=== PATIENT | female | born 1935 | race Caucasian/White ===

== ENCOUNTER 2017-09-21 14:46 | Emergency (ER) | payer OTHER ==
[2017-09-21] MEDS ORDERED: ACETAMINOPHEN 500 MG TAB ONE (15:06)
--- NOTE | 2017-09-21 16:26 | ER ---
Nurse's Notes [facility] Name: Parvin Manzo Age: 82 yrs Sex: Female : 1935 Arrival Date: 09/21/2017 Time: 14:50 Bed 30 Private MD: Laureano Echeverria V Diagnosis: Acute bronchitis;Otitis media, unspecified, bilateral Presentation: 09/21 14:54 Presenting complaint: Patient states: Sore throat, headache, nonproductive cough with hb yellow sputum, body aches, nausea, and fever x 3 days. Transition of care: patient was not received from another setting of care. Onset of symptoms is unknown. Initial Sepsis Screen: Does the patient meet any 2 criteria?. Care prior to arrival: Medication(s) given: Tylenol, at 0930 today. 14:54 Method Of Arrival: Ambulatory hb 14:54 Acuity: ORI 3 hb 16:44 Initial Sepsis Screen: Does the patient have a suspected source of infection? No. rk2 Patient's initial sepsis screen is negative. Triage Assessment: 15:21 General: Appears in no apparent distress. Behavior is calm, cooperative. Pain: rk2 Complains of pain in headache. EENT: Throat is reddened. Neuro: Level of Consciousness is alert, obeys commands, Oriented to person, place, time, situation. Respiratory: Reports cough that is productive, Airway is patent Respiratory effort is even, unlabored, Respiratory pattern is regular, symmetrical, Breath sounds are clear bilaterally. GI: No signs and/or symptoms were reported involving the gastrointestinal system. Derm: Skin is pink, warm \T\ dry. Historical: - Allergies: 15:01 PENICILLINS (Hives); hb - Home Meds: 15:01 Ranitidine Oral [Active]; Thyrolar-1 12.5-50 mcg oral tab [Active]; hb - PMHx: 15:01 Hypothyroidism; GERD; hb - PSHx: 15:01 Cholecystectomy; Back; Neck; hb - Immunization history:: Adult Immunizations up to date. - Social history:: Smoking status: Patient/guardian denies using tobacco. Screenin:20 Abuse screen: Denies threats or abuse. Nutritional screening: No deficits noted. rk2 Tuberculosis screening: No symptoms or risk factors identified. Fall Risk None identified. Vital Signs: 14:58 BP 137 / 90; Pulse 92; Resp 20; Temp 101.6(TE); Pulse Ox 99% on R/A; Weight 68.04 kg; hb Height 5 ft. 2 in. (157.48 cm); Pain 9/10; 16:29 BP 110 / 72; Pulse 77; Resp 16; Pulse Ox 96% ; Pain 3/10; tt1 14:58 Body Mass Index 27.44 (68.04 kg, 157.48 cm) hb ED Course: 14:50 Patient arrived in ED. mr 14:50 Laureano Echeverria MD is Private Physician. mr 14:58 Triage completed. hb 14:59 Arm band placed on left wrist. hb 15:12 Miladis Felder, RN is Primary Nurse. rk2 15:13 Marilyn Monte FNP-C [facility]. snw 15:13 Pedrito Curry MD is Attending Physician. snw 15:20 Patient has correct armband on for positive identification. Bed in low position. rk2 15:59 Patient moved to radiology via wheelchair. jr1 15:59 X-ray completed. Patient tolerated procedure well. jr1 15:59 Chest Pa And Lat (2 Views) XRAY In Process Unspecified. EDMS 16:25 Laureano Echeverria MD is Referral Physician. snw 16:43 No provider procedures requiring assistance completed. Patient did not have IV access rk2 during this emergency room visit. Administered Medications: 15:07 Drug: Tylenol 1000 mg Route: PO; hb 16:32 Drug: LevaQUIN 500 mg Route: PO; rk2 16:44 Follow up: Given \T\ DC rk2 Intake: Outcome: 16:26 Discharge ordered by . snw 16:43 Discharged to home ambulatory. rk2 16:43 Condition: good 16:43 Discharge instructions given to patient, Prescriptions given X 2. 16:55 Patient left the ED. rk2 Signatures: Dispatcher [employer] EDMS Marilyn Monte FNP-C SPRAY PAINTER HELPER-CsnPat Wilson mr Felix, Andressa jr1 Thymrhina, Shivani tt1 Daphne De Leon, RN RN Miladis Felder, MADELEINE RN rk2
--- NOTE | 2017-09-21 16:27 | EDPHYS ---
Physician Documentation [facility] Name: Parvin Manzo Age: 82 yrs Sex: Female : 1935 Arrival Date: 09/21/2017 Time: 14:50 Bed 30 Private MD: Laureano Echeverria V ED Physician CurryPedrito ramos HPI: 09/21 15:38 This 82 yrs old Female presents to ER via Ambulatory with complaints of Flu snw Symptoms. 15:38 Onset: The symptoms/episode began/occurred 4 day(s) ago. Associated signs and symptoms: snw Pertinent positives: cough, fever, sore throat. Modifying factors: The patient symptoms are alleviated by nothing. The patient has not experienced similar symptoms in the past. The patient has not recently seen a physician, the patient's primary care provider is Dr. Dr. Echeverria. Pt states s/s have continued to worsen despite home symptom tx. Historical: - Allergies: 15:01 PENICILLINS (Hives); hb - Home Meds: 15:01 Ranitidine Oral [Active]; Thyrolar-1 12.5-50 mcg oral tab [Active]; hb - PMHx: 15:01 Hypothyroidism; GERD; hb - PSHx: 15:01 Cholecystectomy; Back; Neck; hb - Immunization history:: Adult Immunizations up to date. - Social history:: Smoking status: Patient/guardian denies using tobacco. ROS: 15:37 Constitutional: Negative for chills and weight loss, + fever Eyes: Negative for injury, snw pain, redness, and discharge, Neck: Negative for injury, pain, and swelling, Cardiovascular: Negative for chest pain, palpitations, and edema, Abdomen/GI: Negative for abdominal pain, nausea, vomiting, diarrhea, and constipation, Back: Negative for injury and pain, : Negative for injury, bleeding, discharge, and swelling, MS/Extremity: Negative for injury and deformity, Skin: Negative for injury, rash, and discoloration, Neuro: Negative for headache, weakness, numbness, tingling, and seizure. 15:37 ENT: Positive for sore throat. 15:37 Respiratory: Positive for cough. Exam: 15:36 Constitutional: This is a well developed, well nourished patient who is awake, alert, snw and in no acute distress. Head/Face: Normocephalic, atraumatic. Eyes: Pupils equal round and reactive to light, extra-ocular motions intact. Lids and lashes normal. Conjunctiva and sclera are non-icteric and not injected. Cornea within normal limits. Periorbital areas with no swelling, redness, or edema. Neck: Trachea midline, no thyromegaly or masses palpated, and no cervical lymphadenopathy. Supple, full range of motion without nuchal rigidity, or vertebral point tenderness. No Meningismus. Chest/axilla: Normal chest wall appearance and motion. Nontender with no deformity. No lesions are appreciated. Cardiovascular: Regular rate and rhythm with a normal S1 and S2. No gallops, murmurs, or rubs. Normal PMI, no JVD. No pulse deficits. Respiratory: Lungs have equal breath sounds bilaterally, clear to auscultation and percussion. No rales, rhonchi or wheezes noted. No increased work of breathing, no retractions or nasal flaring. Mild cough Abdomen/GI: Soft, non-tender, with normal bowel sounds. No distension or tympany. No guarding or rebound. No evidence of tenderness throughout. Back: No spinal tenderness. No costovertebral tenderness. Full range of motion. Skin: Warm, dry with normal turgor. Normal color with no rashes, no lesions, and no evidence of cellulitis. MS/ Extremity: Pulses equal, no cyanosis. Neurovascular intact. Full, normal range of motion. Neuro: Awake and alert, GCS 15, oriented to person, place, time, and situation. Cranial nerves II-XII grossly intact. Motor strength 5/5 in all extremities. Sensory grossly intact. Cerebellar exam normal. Normal gait. 15:36 ENT: External ear(s): are unremarkable, Ear canal(s): are normal, TM's: dullness, bilaterally, fluid levels, bilaterally, Nose: is normal, Mouth: is normal, Posterior pharynx: erythema, that is moderate, Voice: is normal. Vital Signs: 14:58 BP 137 / 90; Pulse 92; Resp 20; Temp 101.6(TE); Pulse Ox 99% on R/A; Weight 68.04 kg; hb Height 5 ft. 2 in. (157.48 cm); Pain 9/10; 16:29 BP 110 / 72; Pulse 77; Resp 16; Pulse Ox 96% ; Pain 3/10; tt1 14:58 Body Mass Index 27.44 (68.04 kg, 157.48 cm) hb MDM: 15:16 Patient medically screened. snw 16:29 Data reviewed: vital signs, nurses notes. Data interpreted: Pulse oximetry: on room air snw is 99 %. Interpretation: normal. Counseling: I had a detailed discussion with the patient and/or guardian regarding: the historical points, exam findings, and any diagnostic results supporting the discharge/admit diagnosis, the presence of at least one elevated blood pressure reading (>120/80) during this emergency department visit, lab results, radiology results, the need for outpatient follow up, to return to the emergency department if symptoms worsen or persist or if there are any questions or concerns that arise at home. Special discussion: Based on the history and exam findings, there is no indication for further emergent testing or inpatient evaluation. I discussed with the patient/guardian the need to see the primary care provider for further evaluation of the symptoms. 09/21 15:02 Order name: Strep; Complete Time: 15:34 hb 09/21 15:02 Order name: Flu; Complete Time: 15:34 hb 09/21 15:34 Order name: Chest Pa And Lat (2 Views) XRAY; Complete Time: 16:45 snw 09/21 15:34 Order name: Throat Culture EDMS Administered Medications: 15:07 Drug: Tylenol 1000 mg Route: PO; hb 16:32 Drug: LevaQUIN 500 mg Route: PO; rk2 16:44 Follow up: Given \T\ DC rk2 Disposition: 09/22 12:40 Co-signature as Attending Physician, Pedrito Curry MD. Disposition: 09/21/17 16:26 Discharged to Home. Impression: Acute bronchitis, Otitis media, unspecified, bilateral. - Condition is Stable. - Discharge Instructions: Acute Bronchitis, Otitis Media, Adult, Fever, Adult, Rehydration, Elderly. - Prescriptions for Levaquin 500 mg Oral Tablet - take 1 tablet by ORAL route once daily for 7 days; 7 tablet. Tessalon Perles 100 mg Oral Capsule - take 1 capsule by ORAL route every 8 hours As needed; 15 capsule. - Medication Reconciliation Form, Thank You Letter, Antibiotic Education, Prescription Opioid Use form. - Follow up: Laureano Echeverria MD; When: 2 - 3 days; Reason: Recheck today's complaints, Continuance of care, Re-evaluation by your physician. Follow up: Emergency Department; When: As needed; Reason: Worsening of condition. Signatures: Dispatcher [employer] EDMarilyn Castillo, BANKING ASSISTANT-C BANKING ASSISTANT-Csnw Daphne De Leon, RN Pedrito Alarcon MD MD gs Kidder, Rhonda, RN RN rk2
[2017-09-21] MEDS ORDERED: levoFLOXacin 500 MG TAB ONE (16:30)
--- NOTE | 2017-09-21 16:38 | RAD REPORT ---
EXAM DESCRIPTION: RAD - Chest Pa And Lat (2 Views) - 09/21/2017 4:01 pm CLINICAL HISTORY: Cough, body aches COMPARISON: January 2009 TECHNIQUE: PA and lateral views of the chest were obtained. 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 Lung markings are not substantially different from the comparison. There may be some minimal progression of the fibrosis. No mass, consolidation or failure. Trachea is midline. Heart size is normal and central vasculature is within normal limits. No pleural effusio n or pneumothorax seen. No acute bony finding noted. No aortic abnormality. Exam is correctly labe led. IMPRESSION: No peripheral mass, consolidation or failure. Interstitial markings are not substantially different. There may be some minimal progression in fibro sis since 2008.
== END 2017-09-21 16:55 | disposition home or self-care (01) ==
LOC: ER 14:46
DX: J20.9 Acute bronchitis, unspecified (principal); H66.93 Otitis media, unspecified, bilateral; E03.9 Hypothyroidism, unspecified; Z88.0 Allergy status to penicillin
CPT/HCPCS: 71046; 87070; 87081; 87804; 99283

== ENCOUNTER 2019-01-13 01:36 | Inpatient (IN) | payer OTHER ==
[2019-01-13 02:25] LABS: Absolute Lymphocytes (CBC) 1.6 K/uL (0.7-4.9); Basophils % 0.3 % (0-1.3); Hematocrit 39.5 % (36.0-45.0); Lymphocytes % 11.7 % (15.3-44.8); MPV 9.4 fL (7.6-11.3); RBC Red Blood Cell Count 4.34 M/uL (3.86-4.86)
[2019-01-13 02:27] LABS: Protime INR 0.92
[2019-01-13] MEDS ORDERED: MORPHINE 4 MG/ML SYR ONE ×2 (02:28→04:33)
[2019-01-13] MEDS ORDERED: ONDANSETRON 4 MG/2 ML VIAL ONE ×2 (02:28→03:29)
[2019-01-13 02:49] LABS: Albumin 3.7 g/dL (3.4-5.0); Bilirubin Total 0.3 mg/dL (0.2-1.0); Potassium 3.6 mmol/L (3.5-5.1); Protein, Total 7.5 g/dL (6.4-8.2)
--- NOTE | 2019-01-13 03:22 | ER ---
Nurse's Notes [facility] Name: Parvin Manzo Age: 83 yrs Sex: Female : 1935 Arrival Date: 01/13/2019 Time: 01:37 Bed 19 Private MD: Laureano Echeverria V Diagnosis: Fracture of unspecified part of neck of right femur Presentation: 01/13 01:42 Presenting complaint: EMS states: Pt states that she fell down in the kitchen last tr5 night around 2100 and is having R sided pain from her R hip to her R pain. Transition of care: patient was not received from another setting of care. Onset of symptoms was January 13, 2019. Risk Assessment: Do you want to hurt yourself or someone else? Patient reports no desire to harm self or others. Initial Sepsis Screen: Does the patient meet any 2 criteria? No. Patient's initial sepsis screen is negative. Care prior to arrival: None. 01:42 Method Of Arrival: EMS: [facility] tr5 01:42 Acuity: ORI 3 tr5 01:50 Mechanism of Injury: Fall from standing position. Trauma event details: Injury occurred tr5 in the [facility], Injury occurred: at home. Injury occurred: January 12, 2019 Injury occurred at: 21:00. 01:56 Initial Sepsis Screen: Does the patient meet any 2 criteria? Does the patient have a tr5 suspected source of infection? No. Patient's initial sepsis screen is negative. Historical: - Allergies: 01:46 PENICILLINS (Hives); tr5 - Home Meds: 01:46 Ranitidine Oral [Active]; levothyroxine oral [Active]; tr5 - PMHx: 01:46 GERD; Hypothyroidism; tr5 - PSHx: 01:46 bone transplant; tr5 - Immunization history:: Adult Immunizations up to date. - Social history:: Smoking status: Patient/guardian denies using tobacco, never smoked. - Immunization history: Last tetanus immunization: - up to date. - Ebola Screening: : No symptoms or risks identified at this time. Screenin:47 Abuse screen: Denies threats or abuse. Nutritional screening: No deficits noted. tr5 Tuberculosis screening: No symptoms or risk factors identified. Fall Risk Fall in past 12 months (25 points). No secondary diagnosis (0 pts). No IV (0 pts). Ambulatory Aid- None/Bed Rest/Nurse Assist (0 pts). Gait- Normal/Bed Rest/Wheelchair (0 pts) Mental Status- Oriented to own ability (0 pts). Total Forbes Fall Scale indicates Low Risk Score (25-44 pts). Fall prevention measures have been instituted. Placed close to Nursing Station. Primary Survey: 01:50 NO uncontrolled hemorrhage observed. A: The patient is alert. A: Airway: patent, No tr5 supplemental oxygen in use on arrival. Oral cavity: clear, Trachea midline. Breathing/Chest: Respiratory pattern: regular, Respiratory effort: spontaneous, Breath sounds: clear, bilaterally. Chest inspection: symmetrical rise and fall of the chest. Circulation: Cardiac rhythm: sinus rhythm Heart tones present. Pulses: palpable right radial artery, right posterior tibial artery, left radial artery and left posterior tibial artery. Skin color: pink, Skin temperature: warm. Disability Alert. Exposure/Environment: All clothing and personal items were removed. Forensic evidence collection is not deemed to be indicated at this time. Items placed in patient belonging bag. There is no evidence of uncontrolled external bleeding. 02:50 Reassessment Airway Airway Patent Oxygen No O2 Oral cavity Clear Trachea Midline tr5 Breathing/Chest Respiratory pattern Regular Respiratory effort Spontaneous Breath sounds Clear Chest inspection Symmetrical Circulation Heart rhythm Sinus rhythm Heart tones Present Pulses Palpable Color [place] Temperature Warm Disability Alert. Secondary Survey: 01:50 HEENT: No deficits noted. Gastrointestinal: Abdomen is soft. : No signs and/or tr5 symptoms were reported regarding the genitourinary system. Musculoskeletal: Capillary refill < 3 seconds, Range of motion: intact in all extremities. Assessment: 01:47 General: Appears uncomfortable, Behavior is calm, cooperative, appropriate for age. tr5 Pain: Complains of pain in pelvis and right leg Pain does not radiate. Quality of pain is described as aching, Pain began Gradually since 2100. Neuro: Level of Consciousness is awake, alert, Oriented to person, place, time, Cartridge Feeder are equal bilaterally Moves all extremities. Cardiovascular: Heart tones present Bruits absent. Respiratory: Airway is patent Respiratory effort is even, unlabored, Respiratory pattern is regular, symmetrical. GI: : No signs and/or symptoms were reported regarding the genitourinary system. EENT: No signs and/or symptoms were reported regarding the EENT system. Derm: Skin is intact, Skin is dry, Skin is normal. Musculoskeletal: Capillary refill < 3 seconds, Range of motion: intact in all extremities. Vital Signs: 01:42 BP 141 / 50; Pulse 80; Resp 16; Temp 98.9(O); Pulse Ox 96% on R/A; Weight 68.04 kg; tr5 Height 5 ft. 2 in. (157.48 cm); 03:00 BP 126 / 65; Pulse 69; Resp 19; Pulse Ox 99% on R/A; tr5 01:42 Body Mass Index 27.44 (68.04 kg, 157.48 cm) tr5 Dixie Coma Score: 01:50 Eye Response: spontaneous(4). Verbal Response: oriented(5). Motor Response: obeys tr5 commands(6). Total: 15. Trauma Score (Adult): 01:50 Eye Response: spontaneous(1); Verbal Response: oriented(1); Motor Response: obeys tr5 commands(2); Systolic BP: > 89 mm Hg(4); Respiratory Rate: 10 to 29 per min(4); Dixie Score: 15; Trauma Score: 12 ED Course: 01:37 Patient arrived in ED. am2 01:38 Laureano Echeverria MD is Private Physician. am2 01:41 Franklin Starkey, MADELEINE is Primary Nurse. tr5 01:43 [facility] Bagley [facility]. pm1 01:43 Rj Finnegan MD is Attending Physician. pm1 01:44 Triage completed. tr5 01:47 Bed in low position. Call light in reach. Side rails up X 1. tr5 01:50 Patient maintains SpO2 saturation greater than 95% on room air. tr5 02:20 Initial lab(s) drawn, by me, sent to lab. Inserted saline lock: 20 gauge in right tr5 antecubital area, using aseptic technique. Blood collected. 02:50 CT completed. Patient tolerated procedure well. Patient moved to CT via stretcher. Patient moved back from CT. 02:58 CT Pelvis wo Cont In Process Unspecified. EDMS 03:19 Laureano Echeverria MD is Hospitalizing Provider. pm1 03:25 Awaiting for x-ray. tr5 04:06 Chest Single View XRAY In Process Unspecified. EDMS 04:54 Arm band placed on. tr5 04:54 No provider procedures requiring assistance completed. Patient admitted, IV remains in tr5 place. Administered Medications: 02:34 Drug: morphine 4 mg Route: IVP; Site: right antecubital; tr5 03:00 Follow up: Response: Nausea is decreased tr5 02:34 Drug: Zofran 4 mg Route: IVP; Site: right antecubital; tr5 03:00 Follow up: Response: Nausea is decreased tr5 03:32 Drug: Zofran 4 mg Route: IVP; Site: right antecubital; tr5 03:57 Follow up: Response: Nausea is decreased tr5 04:45 Drug: morphine 4 mg {Note: RAAS:0.} Route: IVP; Site: right antecubital; tr5 Outcome: 01:57 Patient's length of stay was not longer than 2 hours. tr5 03:21 Decision to Hospitalize by Provider. pm1 04:54 Admitted to Med/surg accompanied by nurse, via stretcher, with chart, Report called to tr5 Krista SALVADOR 04:54 Condition: stable 04:54 Instructed on the need for admit. 04:57 Patient left the ED. tr5 Signatures: Dispatcher [employer] Paulo Torre Patrick, NP FABRIC WORKER pm1 Staci Casey am2 Franklin Starkey, RN RN tr5
--- NOTE | 2019-01-13 03:23 | EDPHYS ---
Physician Documentation [facility] Name: Parvin Manzo Age: 83 yrs Sex: Female : 1935 Arrival Date: 01/13/2019 Time: 01:37 Bed 19 Private MD: Laureano Echeverria V ED Physician Rj Finnegan HPI: 01/13 02:01 This 83 yrs old Female presents to ER via EMS with complaints of Fall Injury. pm1 02:01 Details of fall: The patient fell from an upright position, while walking. Onset: The pm1 symptoms/episode began/occurred yesterday, at 21:00. Associated injuries: The patient sustained Right hip. Severity of symptoms: in the emergency department the symptoms are actually worse. The patient has not experienced similar symptoms in the past. The patient has not recently seen a physician, the patient's primary care provider is Dr. Echeverria. Patient waling from kitchen to the living room and fell when she slipped on the kitchen floor. Landed on her right hip area. No headache, head injury, neck pain. Historical: - Allergies: 01:46 PENICILLINS (Hives); tr5 - Home Meds: 01:46 Ranitidine Oral [Active]; levothyroxine oral [Active]; tr5 - PMHx: 01:46 GERD; Hypothyroidism; tr5 - PSHx: 01:46 bone transplant; tr5 - Immunization history:: Adult Immunizations up to date. - Social history:: Smoking status: Patient/guardian denies using tobacco, never smoked. - Immunization history: Last tetanus immunization: - up to date. - Ebola Screening: : No symptoms or risks identified at this time. ROS: 02:01 Constitutional: Negative for fever, chills, and weight loss, Eyes: Negative for injury, pm1 pain, redness, and discharge, ENT: Negative for injury, pain, and discharge, Neck: Negative for injury, pain, and swelling, Cardiovascular: Negative for chest pain, palpitations, and edema, Respiratory: Negative for shortness of breath, cough, wheezing, and pleuritic chest pain, Abdomen/GI: Negative for abdominal pain, nausea, vomiting, diarrhea, and constipation, Back: Negative for injury and pain, : Negative for injury, bleeding, discharge, and swelling. 02:01 Skin: Negative for injury, rash, and discoloration, Neuro: Negative for headache, weakness, numbness, tingling, and seizure. 02:01 MS/extremity: Positive for pain, of the right hip. Exam: 02:01 Constitutional: This is a well developed, well nourished patient who is awake, alert, pm1 and in no acute distress. Head/Face: Normocephalic, atraumatic. Neck: Trachea midline, no thyromegaly or masses palpated, and no cervical lymphadenopathy. Supple, full range of motion without nuchal rigidity, or vertebral point tenderness. No Meningismus. Chest/axilla: Normal chest wall appearance and motion. Nontender with no deformity. No lesions are appreciated. Cardiovascular: Regular rate and rhythm with a normal S1 and S2. No gallops, murmurs, or rubs. Normal PMI, no JVD. No pulse deficits. Respiratory: Lungs have equal breath sounds bilaterally, clear to auscultation and percussion. No rales, rhonchi or wheezes noted. No increased work of breathing, no retractions or nasal flaring. Abdomen/GI: Soft, non-tender, with normal bowel sounds. No distension or tympany. No guarding or rebound. No evidence of tenderness throughout. Back: No spinal tenderness. No costovertebral tenderness. Full range of motion. Skin: Warm, dry with normal turgor. Normal color with no rashes, no lesions, and no evidence of cellulitis. 02:01 Musculoskeletal/extremity: Extremities: grossly normal except: noted in the right hip: tenderness, There is no evidence of shortening or rotation or right leg, Circulation is intact in all extremities. Pulses: are normal with no appreciated deficits, noted to be 2+ in the right dorsalis pedis artery, Sensation intact. 02:01 Neuro: Orientation: is normal, Motor: is normal, moves all fours, Sensation: is normal, no obvious gross deficits. Vital Signs: 01:42 BP 141 / 50; Pulse 80; Resp 16; Temp 98.9(O); Pulse Ox 96% on R/A; Weight 68.04 kg; tr5 Height 5 ft. 2 in. (157.48 cm); 03:00 BP 126 / 65; Pulse 69; Resp 19; Pulse Ox 99% on R/A; tr5 01:42 Body Mass Index 27.44 (68.04 kg, 157.48 cm) tr5 Blandon Coma Score: 01:50 Eye Response: spontaneous(4). Verbal Response: oriented(5). Motor Response: obeys tr5 commands(6). Total: 15. Trauma Score (Adult): 01:50 Eye Response: spontaneous(1); Verbal Response: oriented(1); Motor Response: obeys tr5 commands(2); Systolic BP: > 89 mm Hg(4); Respiratory Rate: 10 to 29 per min(4); Robinson Score: 15; Trauma Score: 12 MDM: 01:48 Patient medically screened. [facility] 02:06 Data reviewed: vital signs. Data interpreted: Pulse oximetry: on room air is 96 %. pm1 Interpretation: normal. 03:19 Counseling: I had a detailed discussion with the patient and/or guardian regarding: the pm1 historical points, exam findings, and any diagnostic results supporting the discharge/admit diagnosis, lab results, radiology results, the need for further work-up and treatment in the hospital. 01/13 02:01 Order name: CBC with Diff; Complete Time: 02:41 pm1 01/13 02:01 Order name: CMP; Complete Time: 02:54 pm1 01/13 02:01 Order name: PT-INR; Complete Time: 02:41 pm1 01/13 02:01 Order name: CT Pelvis wo Cont pm01/13 03:19 Order name: Chest Single View XRAY pm1 01/13 02:01 Order name: IV Saline Lock; Complete Time: 02:26 pm1 01/13 03:19 Order name: EKG; Complete Time: 03:19 pm1 01/13 03:19 Order name: EKG - Nurse/Tech; Complete Time: 03:43 pm1 01/13 03:19 Order name: NPO; Complete Time: 03:43 pm1 01/13 03:37 Order name: NPO; Complete Time: 03:43 EDMS Administered Medications: 02:34 Drug: morphine 4 mg Route: IVP; Site: right antecubital; tr5 03:00 Follow up: Response: Nausea is decreased tr5 02:34 Drug: Zofran 4 mg Route: IVP; Site: right antecubital; tr5 03:00 Follow up: Response: Nausea is decreased tr5 03:32 Drug: Zofran 4 mg Route: IVP; Site: right antecubital; tr5 03:57 Follow up: Response: Nausea is decreased tr5 04:45 Drug: morphine 4 mg {Note: RAAS:0.} Route: IVP; Site: right antecubital; tr5 Disposition: 09:32 Co-signature as Attending Physician, Rj Finnegan MD I agree with the assessment and kelly plan of care. Disposition: 01/13/19 03:21 Hospitalization ordered by Laureano Echeverria for Inpatient Admission. Preliminary diagnosis is Fracture of unspecified part of neck of right femur. - Bed requested for Telemetry/MedSurg (Inpatient). - Status is Inpatient Admission. tr5 - Condition is Stable. - Problem is new. - Symptoms have improved. UTI on Admission? No Signatures: Dispatcher [employer] EDMS Toya Hernandez RN RN Rj Wells MD MD cha Marinas, Patrick, MILLER HEAD WET PROCESS MILLER HEAD WET PROCESS pm1 Franklin Starkey RN RN tr5 Corrections: (The following items were deleted from the chart) 03:54 03:21 Hospitalization Ordered by Laureano Echeverria MD for Inpatient Admission. Preliminary diagnosis is Fracture of unspecified part of neck of right femur. Bed requested for Telemetry/MedSurg (Inpatient). Status is Inpatient Admission. Condition is Stable. Problem is new. Symptoms have improved. UTI on Admission? No. pm1 04:57 03:54 01/13/2019 03:21 Hospitalization Ordered by Laureano Echeverria MD for Inpatient tr5 Admission. Preliminary diagnosis is Fracture of unspecified part of neck of right femur. Bed requested for Telemetry/MedSurg (Inpatient). Status is Inpatient Admission. Condition is Stable. Problem is new. Symptoms have improved. UTI on Admission? No. mw
[2019-01-13 05:05] VITALS: BMI 28.3
[2019-01-13] MEDS: NA CHLORIDE 0.9% 1,000 ML IV SCH ×3 (06:02→22:00)
--- NOTE | 2019-01-13 07:43 | EKG ---
Test Date: 2019-01-13 Test Time: 03:38:10 Patient Experience Coordinator: TR MEASUREMENT RESULTS: Intervals: Rate: 68 IN: 168 QRSD: 76 QT: 402 QTc: 427 [place]: P: 88 IN: 168 QRS: 122 T: 87 INTERPRETIVE STATEMENTS: Normal sinus rhythm Right axis deviation Low voltage QRS Septal infarct, age undetermined Abnormal ECG Compared to ECG 01/31/2009 18:42:34 Right-axis deviation now present Low QRS voltage now present Myocardial infarct finding still present Electronically Signed On 01-13-19 07:42:17 CDT by Vladislav Arambula
[2019-01-13 07:59] LABS: Urine Appearance CLEAR; Urine Bilirubin NEGATIVE (NEG); Urine Blood 1+ (NEG); Urine Color YELLOW; Urine Glucose NEGATIVE (NEG); Urine Protein NEGATIVE (NEG); Urine Specific Gravity 1.015 (1.005-1.030); Urine Urobilinogen 0.2 mg/dL (0.2-1.0); Urine pH 5.5 (5.0-7.0)
[2019-01-13 08:00] LABS: Urine Microscopic Reflex ORDER UMIC
[2019-01-13 08:18] LABS: Urine Bacteria 20-50 /HPF (<20); Urine Culture Reflex Order REFLEXED; Urine RBC <5 /HPF (NONE SEEN)
--- NOTE | 2019-01-13 08:20 | RAD REPORT ---
EXAM DESCRIPTION: RAD - Chest Single View - 01/13/2019 4:06 am CLINICAL HISTORY: preoperative Chest pain. COMPARISON: Chest Pa And Lat (2 Views) dated 09/21/2017; CHEST SINGLE VIEW dated 01/28/2009; CHEST SING LE VIEW dated 01/23/2008 FINDINGS: Portable technique limits examination quality. Mild interstitial pulmonary edema suspected. The heart is upper limit normal size. No displaced fract ures. IMPRESSION: No acute intrathoracic process suspected.
--- NOTE | 2019-01-13 10:09 | RAD REPORT ---
EXAM DESCRIPTION: CT pelvis without IV contrast CLINICAL HISTORY: 83-year-old female with right hip pain status post fall TECHNIQUE: Axial CT imaging of the pelvis was performed without intravenous contrast. Sagittal and coronal reconstructed images were then performed. The CT study is performed according to ALARA (as l ow as reasonably achievable) or ALARA/IMAGE GENTLY, with automatic adjustment of mA and/or kV accordi ng to patient size. Performed on: 01/13/2019 at 2:46 AM COMPARISON: None FINDINGS: Bones: There is a nondisplaced fracture of the proximal right femur at the junction of the head and neck. The hip joints are intact. The sacroiliac joints and pubic symphysis are preserved. N o pathologic lytic bone lesions are identified. There is a small 6 mm focal area of sclerosis within the anterior column of the left acetabulum likely reflecting a bone island. Bone mineralization is no rmal. There are minimal degenerative changes of the pelvis. There are degenerative changes of the vis ualized lower lumbar spine. Soft tissues: No focal soft tissue swelling is identified. There is no evidence of a hip joint effu anne. There is no significant soft tissue swelling. The visualized appendix is grossly unremarkable . There is occasional colonic diverticulosis. The bladder is well distended and smooth in contour. Th e uterus is grossly unremarkable. IMPRESSION: 1. Nondisplaced fracture of the proximal right femur at the junction of the head and nec k. There is no significant surrounding soft tissue swelling. 2. Minimal degenerative changes of the pelvis and visualized lower lumbar spine. 3. Occasional colonic diverticulosis. Electronically signed by: Zonia Clay DO 01/13/2019 3:39 AM CDT Due to temporary technical issues with the PACS/Fluency reporting system, reports are being signed by the in house radiologist as a courtesy to ensure prompt reporting. The interpreting radiologist is f tessyly responsible for the content of the report.
[2019-01-13] MEDS: MORPHINE 4 MG/ML SYR IV PRN (11:08)
[2019-01-13] MEDS: ONDANSETRON 4 MG/2 ML VIAL IV PRN ×2 (11:12→21:20)
[2019-01-13] MEDS ORDERED: CLINDAMYCIN INJ 900 MG in NA CHLORIDE 0.9% 50 ML IV ONE (17:00)
[2019-01-13] MEDS ORDERED: TRANEXAMIC ACID 1,000 MG in NA CHLORIDE 0.9% 50 ML IV ONE (17:00)
[2019-01-13] MEDS ORDERED: FENTANYL CITR 100 MCG/2 ML ONE (18:55)
[2019-01-13] MEDS ORDERED: ROCURONIUM 50 MG/5 ML VIAL IV ONE (18:55)
[2019-01-13] MEDS ORDERED: PROPOFOL 200 MG/20 ML VIAL IV ONE (18:55)
[2019-01-13] MEDS ORDERED: MIDAZOLAM HCL 2 MG/2 ML INJ ONE (18:55)
[2019-01-13] MEDS ORDERED: GLYCOPYRROLATE 0.2 MG/ML SYR ONE (20:24)
[2019-01-13] MEDS ORDERED: NEOSTIGMINE 1 MG/ML -10 ML VIAL ONE (20:24)
--- NOTE | 2019-01-13 20:35 | P.BOP ---
Preoperative diagnosis: right femoral neck fracture Postoperative diagnosis: same Primary procedure: screw fixation of right femoral neck fracture Estimated blood loss: 5cc Anesthesia: General Complications: None Transferred to: Recovery Room Condition: Good
[2019-01-13] MEDS ORDERED: MEPERIDINE HCL 25 MG/0.5 ML ONE (20:40)
--- NOTE | 2019-01-13 20:43 | P.HP ---
Certification for Inpatient Patient admitted to: Inpatient With expected LOS: >2 Midnights Practitioner: I am a practitioner with admitting privileges, knowledge of patient current condition, hospital course, and medical plan of care. Services: Services provided to patient in accordance with Admission requirements found in Title 42 Section 412.3 of the Code of Federal Regulations Patient History Date of Service: 01/13/19 Reason for admission: FELL AND HAD HIP PAIN. History of Present Illness: MS. [place] FELL IN THE KITCHEN, SLIPPED ON TILE FLOOR TRYING TO HURRY TO WATCH [employer] GAME. SHE CAME TO ER ABOUT3 HOURS LATER THINKING SHE WILL BE OKAY. SHE REALIZED SHE HAD MORE PAIN THAN SHE THOUGHT. SHE HAS R HIP FRACTURE. SHE DENIES ANY CHEST PAIN, DYSPNEA AND HAS NO KNOWN CARDIAC HISTORY. Allergies Penicillins Allergy (Mild, Verified 01/13/19 05:01) Rash Home Medications: Levothyroxine Sodium 75 mcg PO DAILY 01/13/19 Potassium Chloride [Klor-Con 10] 10 meq PO DIRECTED 01/13/19 Ranitidine [Zantac*] 150 mg PO DAILY 01/13/19 Torsemide 10 mg PO DIRECTED 01/13/19 - Past Medical/Surgical History Has patient received pneumonia vaccine in the past: Yes Diabetic: No -: Hypothyroid -: GERD -: Fluid retention -: Back surgeries -: Rosa -: Neck surgeries - Family History Mother -: Cancer Notes: breast Cancer Sister -: Cancer Notes: breast cancer Brother -: Stroke, Cancer Notes: lung cancer Father -: Heart disease Notes: heart attack - Social History Smoking Status: Former smoker Alcohol use: Yes CD- Drugs: No Caffeine use: Yes Place of Residence: Home Review of Systems 10-point ROS is otherwise unremarkable Physical Examination - Vital Signs Temperature: 99.4 F Blood Pressure: 133/58 Pulse: 67 Respirations: 16 Pulse Ox (%): 94 - Physical Exam General: Alert, In no apparent distress HEENT: Atraumatic, PERRLA, Mucous membr. moist/pink, EOMI, Sclerae nonicteric Neck: Supple, 2+ carotid pulse no bruit, No LAD, Without JVD or thyroid abnormality Respiratory: Clear to auscultation bilaterally, Normal air movement Cardiovascular: Regular rate/rhythm, Normal S1 S2 Gastrointestinal: Normal bowel sounds, No tenderness Musculoskeletal: No tenderness, Other (HIP PAIN R) Integumentary: No rashes Neurological: Normal gait, Normal speech, Normal strength at 5/5 x4 extr, Normal tone, Normal affect Lymphatics: No axilla or inguinal lymphadenopathy - Studies Laboratory Data (last 24 hrs) 01/13/19 02:15: PT 10.9, INR 0.92 01/13/19 02:15: Sodium 139, Potassium 3.6, BUN 18, Creatinine 0.69, Glucose 116 H, Total Bilirubin 0.3, AST 33, ALT 36, Alkaline Phosphatase 119 H 01/13/19 02:15: WBC 14.0 H, Hgb 13.3, Hct 39.5, Plt Count 257 Assessment and Plan - Problems (Diagnosis) (1) HTN (hypertension) Current Visit: Yes Status: Chronic Plan: STABLE. Qualifiers: Hypertension type: essential hypertension Qualified Code(s): I10 - Essential (primary) hypertension (2) Closed right hip fracture Current Visit: Yes Status: Acute Plan: CELSO IS MEDICALLY STABLE PATIENT WITH NO CARDIAC HISTORY. SHE IS MEDICALLY CLEARED WITH MILD RISK. SHE HAS SOME NEW EKG CHANGES BUT NO SYMPTOMS TO SUPPORT IT. WILL FU WITH STREET CLEANING EQUIPMENT OPERATOR. THIS IS AN URGENT SURGERY AND SHE IS STABLE FOR NOW WITH NO CORONARY RELATED SYMTPOMS NOW OR BEFORE. Qualifiers: Encounter type: initial encounter Qualified Code(s): S72.001A - Fracture of unspecified part of neck of right femur, initial encounter for closed fracture - Advance Directives Does patient have a Living Will: Yes Does patient have a Durable POA for Healthcare: Yes
[2019-01-13] MEDS ORDERED: KETOROLAC 30 MG/ML INJ ONE (20:54)
[2019-01-13] MEDS: MORPHINE 4 MG/ML SYR ONE ×2 (20:59→21:03)
[2019-01-13] MEDS ORDERED: POTASSIUM CL SA 10 MEQ TAB PO SCH (21:00)
--- NOTE | 2019-01-14 01:10 | CON ---
Date of Consultation: 01/13/2019 History Of Present Illness: This is my first time seeing this patient to my knowledge. She is an 83 -year-old female who unfortunately was resting to see the [employer]; however, she fell, when she did she landed quite hard per her report, injuring her right lower extremity. She was seen and examined in the emergency room where she was ruled out for other injuries. However, a CT scan demonstrates a non displaced fracture of the femoral neck just proximal to the head. She is admitted under the care of Dr. Echeverria and has been cleared for any surgical intervention. Physical Examination: All of her long bones and joints are palpated without pain or crepitation. She says she does have so me soreness along the entire right side, however, does have pain with any movement of the right hip. Imaging Studies: Review of x-rays and CT scan demonstrate a small crack in the base of the head, whi ch is nondisplaced. All the risks, benefits, and alternatives to operative intervention have been discussed with the leonie ent and the family. We will at this time proceed with screw fixation. They are told the risks, bene fits, and alternatives associated with that. They say they understand things as presented. We will move forward with this soon. MONIE Voice ID: [id number] Report ID: [id number]
--- NOTE | 2019-01-14 03:19 | OP ---
Date of Procedure: 01/13/2019 Surgeon: Jose L Segura MD Preoperative Diagnosis: Right minimally displaced femoral neck fracture just below the head. Postoperative Diagnosis: Right minimally displaced femoral neck fracture just below the head. Procedure: Screw fixation of right femoral neck fracture. Estimated Blood Loss: Less than 5 cc. Complications: There were no complications. Specimens: No pathology specimens sent. Indication For Operation: Ms. Manzo is a patient who unfortunately fell injuring her right lower extremity. She was seen and examined in the emergency department where she had a CT scan done of her pelvis, which demonstrates a quite minimally displaced fracture of the femoral neck just below the h ead. On physical examination, all of her long bones and joints were palpated without pain or crepita tion with the exception of some generalized pain or discomfort throughout the right side of her right upper extremity and lower extremity. She does have significant pain with any manipulation of her ri ght hip. All risks, benefits, and alternatives of different methods of treating this have been discu ssed with both the patient and the family. They state they understand things as presented and wishes to proceed. Description Of Procedure: Patient was taken to the operating room and placed in supine position. Ge neral anesthesia was obtained by the staff. Following this, she was then moved to the fracture table . She was appropriately positioned on the fracture table for good AP and lateral x-rays of the femor al head and neck. After this, the right lower extremity was then prepped and draped in usual sterile fashion for the procedure. A pin was then placed through the skin and felt to be in the center of t he femur. It was gently advanced and was served as the most inferior central screw. This was advanc ed to near the chondral surface of the head and appeared to be moving appropriately on both AP and la teral x-rays. Following this, 2 more pins were then placed superiorly. They do go through the cente r of the neck. They were slightly anterior on the head as compared to what would be absolutely stand jackie. However, they were measured and they were checked under biplanar standard radiography. Followi ng this, 3 screws were placed with good bites throughout and I checked with AP and lateral to ensure they were not past the femoral head and advanced to be the appropriate size, maintaining stability. Following this, the pins were removed and the skin was closed using interrupted nylon sutures. Patie nt was placed in a small Aquacel dressing, awakened and taken to the recovery room in good condition. No complications. SE/MODL Voice ID: [id number] Report ID: [id number]
[2019-01-14] MEDS: NA CHLORIDE 0.9% 1,000 ML IV SCH ×6 (03:20→22:00)
--- NOTE | 2019-01-14 07:05 | RAD REPORT ---
EXAM DESCRIPTION: RAD - Hip In Or - 01/13/2019 9:18 pm FINDINGS: There were 4 portable C-arm views submitted from a fluoroscopic assisted placement of righ t hip fracture fixation hardware. No suspicious or unexpected finding. Fluoro time was 2.4 minutes.
[2019-01-14] MEDS: LEVOTHYROXINE SOD 0.075 MG TAB PO SCH (08:17)
[2019-01-14] MEDS: RANITIDINE 150 MG TABLET PO SCH (08:18)
[2019-01-14] MEDS: RIVAROXABAN 10 MG TABLET PO SCH (08:25)
[2019-01-14] MEDS ORDERED: TORSEMIDE 20 MG TAB PO SCH (09:00)
[2019-01-14] MEDS: MORPHINE 4 MG/ML SYR IV PRN ×2 (09:07→13:29)
--- NOTE | 2019-01-14 18:28 | P.PN ---
Subjective Date of Service: 01/14/19 Chief Complaint: FELL AND HAD HIP PAIN. Subjective: No new changes, Improving SHE IS DOING GREAT. DENIES CHEST PAIN. FEELS WELL. Review of Systems 10-point ROS is otherwise unremarkable Physical Examination - Vital Signs Temperature: 97.4 F Blood Pressure: 100/56 Pulse: 68 Respirations: 17 Pulse Ox (%): 93 - Physical Exam General: Mild distress HEENT: Atraumatic, PERRLA, EOMI Neck: Supple, JVD not distended Respiratory: Clear to auscultation bilaterally, Normal air movement Cardiovascular: Regular rate/rhythm, Normal S1 S2 Gastrointestinal: Normal bowel sounds, No tenderness Musculoskeletal: No tenderness Integumentary: No rashes Neurological: Normal speech, Normal tone, Normal affect Lymphatics: No axilla or inguinal lymphadenopathy - Studies Medications List Reviewed: Yes Assessment And Plan - Current Problems (Diagnosis) (1) HTN (hypertension) Current Visit: Yes Status: Chronic Plan: STABLE. Qualifiers: Hypertension type: essential hypertension Qualified Code(s): I10 - Essential (primary) hypertension (2) Closed right hip fracture Current Visit: Yes Status: Acute Plan: CELSO IS MEDICALLY STABLE PATIENT WITH NO CARDIAC HISTORY. SHE IS MEDICALLY CLEARED WITH MILD RISK. SHE HAS SOME NEW EKG CHANGES BUT NO SYMPTOMS TO SUPPORT IT. WILL FU WITH CHEMISTRY TECHNOLOGIST. THIS IS AN URGENT SURGERY AND SHE IS STABLE FOR NOW WITH NO CORONARY RELATED SYMTPOMS NOW OR BEFORE. STABLE, REFER TO REHAB. Qualifiers: Encounter type: initial encounter Qualified Code(s): S72.001A - Fracture of unspecified part of neck of right femur, initial encounter for closed fracture (3) Abnormal EKG Current Visit: Yes Status: Suspected Plan: I TALKED TO DR. WARREN AND HE TOLD ME THERE IS NOTHING TO WORRY ABOUT FOR EKG. SHE HAS NO SS.
[2019-01-14] MEDS: TRAMADOL HCL 50 MG TAB PO PRN (20:59)
[2019-01-14] MEDS ORDERED: ACETAMINOPHEN 500 MG TAB PO PRN (21:58)
[2019-01-14 22:57] LABS: Urine Appearance CLEAR; Urine Bilirubin NEGATIVE (NEG); Urine Blood NEGATIVE (NEG); Urine Color YELLOW; Urine Glucose NEGATIVE (NEG); Urine Protein NEGATIVE (NEG); Urine Urobilinogen 0.2 mg/dL (0.2-1.0); Urine pH 5.5 (5.0-7.0)
[2019-01-14 23:03] LABS: Urine Microscopic Reflex NO UMIC
[2019-01-15] MEDS: NA CHLORIDE 0.9% 1,000 ML IV SCH ×3 (03:32→11:45)
[2019-01-15] MEDS: TRAMADOL HCL 50 MG TAB PO PRN ×3 (06:18→16:14)
[2019-01-15] MEDS: RANITIDINE 150 MG TABLET PO SCH (07:47)
[2019-01-15] MEDS: RIVAROXABAN 10 MG TABLET PO SCH (07:47)
[2019-01-15] MEDS: LEVOTHYROXINE SOD 0.075 MG TAB PO SCH (07:47)
[2019-01-15 10:41] VITALS: O2SAT 93
[2019-01-15 12:35] VITALS: TEMP 99.2
[2019-01-15 13:23] VITALS: BP 114/56
--- NOTE | 2019-01-15 16:08 | P.DS ---
Admission Date: 01/13/19 Discharge Date: 01/15/19 Disposition: TRANSFER TO INPATIENT REHAB Discharge Condition: FAIR Reason for Admission: FELL AND HAD HIP PAIN. - Problems (1) HTN (hypertension) Current Visit: Yes Status: Chronic Qualifiers: Hypertension type: essential hypertension Qualified Code(s): I10 - Essential (primary) hypertension (2) Closed right hip fracture Current Visit: Yes Status: Acute Qualifiers: Encounter type: initial encounter Qualified Code(s): S72.001A - Fracture of unspecified part of neck of right femur, initial encounter for closed fracture (3) Abnormal EKG Current Visit: Yes Status: Suspected Brief History of Present Illness: MS. MADISON FELL IN THE KITCHEN, SLIPPED ON TILE FLOOR TRYING TO HURRY TO WATCH Exposed Voc[employer]'S GAME. SHE CAME TO ER ABOUT3 HOURS LATER THINKING SHE WILL BE OKAY. SHE REALIZED SHE HAD MORE PAIN THAN SHE THOUGHT. SHE HAS R HIP FRACTURE. SHE DENIES ANY CHEST PAIN, DYSPNEA AND HAS NO KNOWN CARDIAC HISTORY. Hospital Course: MS. MADISON IS DOING GREAT. SHE HAS NO NEW SS. SHE HAS FEVER BUT SECOND URINE THAT WAS SPECICATH IS TOTALLY NORMAL. FIRST URINE COLLECTED IN ER WAS UN- CLEAN CATCH. IT SHOWS LOT OF CONTAMINANTS. SHE BASED ON SECOND URINE SHOULD NOT BE TREATED WITH ANTIBIOTICS. SHE IS STABLE TO GO TO REHAB. Vital Signs/Physical Exam: Temp Pulse Resp BP Pulse Ox 99.2 F 79 23 H 114/56 L 95 01/15/19 12:34 01/15/19 12:00 01/15/19 12:00 01/15/19 12:00 01/15/19 12:00 General: Alert, In no apparent distress HEENT: Atraumatic, PERRLA, EOMI Neck: Supple, JVD not distended Respiratory: Clear to auscultation bilaterally, Normal air movement Cardiovascular: Regular rate/rhythm, Normal S1 S2 Gastrointestinal: Normal bowel sounds, No tenderness Musculoskeletal: No tenderness Integumentary: No rashes Neurological: Normal speech, Normal tone, Normal affect Lymphatics: No axilla or inguinal lymphadenopathy Laboratory Data at Discharge: WBC 14.0 K/uL (4.3-10.9) H 01/13/19 02:15 Hgb 13.3 g/dL (12.0-15.0) 01/13/19 02:15 Hct 39.5 % (36.0-45.0) 01/13/19 02:15 Plt Count 257 K/uL (152-406) 01/13/19 02:15 PT 10.9 SECONDS (9.5-12.5) 01/13/19 02:15 INR 0.92 01/13/19 02:15 Sodium 139 mmol/L (136-145) 01/13/19 02:15 Potassium 3.6 mmol/L (3.5-5.1) 01/13/19 02:15 BUN 18 mg/dL (7-18) 01/13/19 02:15 Creatinine 0.69 mg/dL (0.55-1.3) 01/13/19 02:15 Glucose 116 mg/dL (74-106) H 01/13/19 02:15 Total Bilirubin 0.3 mg/dL (0.2-1.0) 01/13/19 02:15 AST 33 U/L (15-37) 01/13/19 02:15 ALT 36 U/L (12-78) 01/13/19 02:15 Alkaline Phosphatase 119 U/L (45-117) H 01/13/19 02:15 Home Medications: Levothyroxine Sodium 75 mcg PO DAILY 01/13/19 Potassium Chloride [Klor-Con 10] 10 meq PO DIRECTED 01/13/19 Ranitidine [Zantac*] 150 mg PO DAILY 01/13/19 Torsemide 10 mg PO DIRECTED 01/13/19 Rivaroxaban [Xarelto*] 10 mg PO DAILY tablet 01/15/19 traMADol HCL [Ultram*] 50 mg PO Q4H PRN tab 01/15/19
== END 2019-01-15 16:31 | DRG 482 ==
LOC: ER 01:36 → ERHOLD 04:06 → 2ND 04:19
PROVIDERS: ADMIT Internal Medicine; ATTEND Internal Medicine
PROC: 0QH634Z Insertion of Internal Fixation Device into Right Upper Femur, Percutaneous Approach (ICD-10-PCS; principal; 2019-01-13 17:00)
DX: S72.001A Fracture of unspecified part of neck of right femur, initial encounter for closed fracture (principal); W01.0XXA Fall on same level from slipping, tripping and stumbling without subsequent striking against object, initial encounter; Y92.000 Kitchen of unspecified non-institutional (private) residence as the place of occurrence of the external cause; I10 Essential (primary) hypertension; R94.31 Abnormal electrocardiogram [ECG] [EKG]; E03.9 Hypothyroidism, unspecified; K21.9 Gastro-esophageal reflux disease without esophagitis; Z87.891 Personal history of nicotine dependence
CPT/HCPCS: 36415; 71045; 72192; 73530; 80053; 81003; 81015; 85025; 85610; 86850; 86900; 86901; 87077; 87086; 87088; 87186; 93005; 96374; 96375; 97110; 97112; 97116; 97161; 97530; 99285; J2175; J2250; J2405; J2704; J2710; J3010; J7030

== ENCOUNTER 2019-01-15 11:58 | Inpatient (IN) | payer OTHER ==
--- NOTE | 2019-01-15 14:30 | R.PREADM ---
SCREENING DATE AND TIME 01/15/2019 13:35 (CDT) ANTICIPATED REHAB ADMISSION DATE 01/17/2019 REFERRING FACILITY [facility] REFERRAL DATE AND TIME 01/15/2019 13:35 (CDT) REFERRAL OFFICE PHONE [phone] REFERRAL ROOM# [id number] ACUTE ADMIT DATE 01/13/2019 Previous Rehabilitation(s): No. ACUTE MALT HOUSE SUPERVISOR/DC LAB COORDINATOR Eryn Mcarthur REFERRING PHYSICIAN [facility] CLINICAL LIAISON Marty Craig PHYSICIAN REVIEWER Dr. Raúl Llanes M.D. MR# [id number] NAME CELSO MADISON ADDRESS [address] [facility] PHONE [facility] [id number] DATE OF 1935 AGE 83 SSN# [id number] GENDER female MARITAL STATUS RACE white ADMIT FROM 02 - [facility] PRE-HOSPITAL LIVING SETTING 01 - Home (private home/apt. board/care, assisted living, mcc, transitional living) HOME TYPE AND DETAILS Type of home: single family house # of levels in the residence: 1 # of steps to enter the residence: 2 # of steps within the residence: 0 PRE-HOSPITAL LIVING WITH Alone FAMILY SUPPORT Yes PRIMARY FAMILY CONTACT NAME Abi Leal PRIMARY FAMILY CONTACT PHONE PRIMARY FAMILY CONTACT ALT. PHONE PHONE PRIMARY FAMILY CONTACT ON ADM.? no IS PRIMARY FAMILY CONTACT AUTH. REP.? no 1ST EMERGENCY CONTACT Abi Leal 1ST CONTACT PHONE 1ST CONTACT ALT. PHONE PHONE 1ST CONTACT ON ADM. no IS 1ST CONTACT AUTH. REP.? no PHONE 2ND CONTACT ON ADM.? no PATIENT EMPLOYMENT STATUS Retired (for age) PATIENT EMPLOYER No Employer PAYOR INFORMATION: 1ST PAYOR NAME MEDICARE 1ST PAYOR PHONE [phone] 1ST PAYOR INJURY/ILLNESS DUE TO ACCIDENT? No ANOTHER REPUBLICAN RESPONSIBLE? No PRIMARY REHAB/ACUTE DIAGNOSIS: RIGHT MINIMALLY DISPLACED FEMORAL NECK FRACTURE JUST BELOW THE HEAD ONSET DATE 01/13/2019 REHAB IMPAIRMENT CATEGORY ([place]): 07 Fracture of LE (FracLE) MEETS 60% rule AFFECTED EXTREMITIES: RLE PRIMARY DIAGNOSIS-RELATED SURGERIES: Screw fixation of right femoral neck fracture - performed by Jose L Segura on 01/13/2019 COMORBID REHAB/ACUTE DIAGNOSES: - N/A hypothyroidism GERD Fluid Retention INTERVENTIONS: - GERD Altered diet Elevation of head of bed Medications Nausea/vomiting Nighttime food/fluid restrictions Nutrition RISK FOR COMPLICATIONS: - GERD Alteration in sleep Aspiration Dehydration Malnutrition Pain SUMMARY OF ACUTE HOSPITALIZATION: Pt. is a 83 yo Right-handed white female. On 01/13/2019 she was admitted to [facility] with diagnosis RIGHT MINIMALLY DIS PLACED FEMORAL NECK FRACTURE JUST BELOW THE HEAD. Her impairment category is Orthopaedic Disorders 08 - Unilateral Hip Fracture (08.11). Pre-morbidly, Pt. was independent/mod-I in Self-Care, Sphincter Control, Transfers Control, Locomotio n, Communication, and Social Cognition; and she had good Sphincter Control. Currently, she has deficits of Self-Care, Transfers Control, Locomotion, Endurance, Balance, and Safe ty Awareness. Pt. is now referred to [facility] for acute in-patient rehabilitation in order to maximize patient's functional independence in activities of daily living, strength, ROM, and mobi lity. Patient has realistic goal of being discharged at assistance level 6-Amado to reside at Home with Fam tevin/Relatives. Celso Madison is an 83 old female that lives alone in a single rosy house with 2 steps to enter. She was independent ADLs and self care without the use of assistive device. On 01/13/2019, she fell in the kitchen, slipped on tile floor trying to hurry to watch [employer] game and was admitted at [facility]. She is now medically stable but in need of 24-hour nursing, doctor supervision and oversite participate in 3hours of therapy a day/15 hours per week and receive care with an intensive interdisciplinary approach. PAST MEDICAL HISTORY Fluid Retention GERD hypothyroidism PAST SURGICAL HISTORY: BACK SURGERY Cholecystectomy NECK SURGERY MEDICATION ALLERGIES: PENICILLIN ENVIRONMENTAL ALLERGIES: None Known - Substance Allergies None Known - Other Allergies None Known CODE STATUS: Full code WEIGHT/HEIGHT/BMI: WEIGHT 154 lbs HEIGHT 5' 2" BMI 28.2 DIET: - Diet Type Regular - Diet - Solid Texture Regular - Diet - Liquid Texture Regular - Tube Feed N/A REVIEW OF SYSTEMS: - Gen Alert and awake Lying in bed No apparent distress Oriented to: person, time, and place - Vital Signs Temperature: 99.2 F SBP/DBP: 114/56 Pulse: 79 Resp: 23 Vital signs stable, afebrile - CVS RRR VITAL SIGNS Temperature: 99.2 F SBP/DBP: 114/56 Pulse: 79 Resp: 23 Vital signs stable, afebrile CURRENT SPHINCTER CONTROL: Pre-hospital bladder status: continent # of bladder accidents in the last 7 days prior to screenin Pre-hospital bowel status: continent # of bowel accidents in the last 7 days prior to screenin Last Bowel Movement Date: 01/15/2019 DETAILED CURRENT FUNCTIONAL STATUS: - Bladder accident frequency: Ind - No accidents in the past 7 days - Bowel accident frequency: Ind - No accidents in the past 7 days - Walking score based on distance walked: 1(<=50ft) - Wheelchair score based on distance traveled: 0(N/A) FUNCTIONAL STATUS: - Self-Care A. Eating Ind sup B. Grooming Ind sup C. Bathing Ind modA D. Dressing - Upper Ind Gage E. Dressing - Lower Ind maxA F. Toileting Ind maxA - Sphincter Control G: Bladder control Ind Ind H: Bowel control Ind Ind - Transfers Control I. Bed/Chair/Wheelchair Ind modA J. Toilet Ind modA K. Tub/Shower Ind ADNO - Locomotion L. Walk/Wheelchair (C) Ind maxA L. Walk/Wheelchair (W) Ind maxA M. Stairs Ind ADNO - Communication N. Comprehension (B) Ind Ind O. Expression (B) Ind Ind - Social Cognition P. Social Interaction Ind Ind Q. Problem Solving Ind Ind R. Memory Ind Ind - Endurance Fair - Balance Fair - Safety Awareness Fair CURRENT FUNC. DEFICITS: Self-Care, Transfers Control, Locomotion, Endurance, Balance, and Safety Awareness THERAPY NOTES FROM ACUTE CARE: Attached. SPECIAL NEEDS: - Safety Concerns Skin breakdown precautions needed due to skin breakdown risk PRECAUTIONS: - Posterior Hip Precaution No adduction across midline No external rotation No hip flexion >90 degrees No internal rotation No wheel chair propulsion - Weight Bearing Precaution TTWB right LE PATIENT NEEDS ACTIVE AND ONGOING THERAPEUTIC INTERVENTION OF MULTIPLE THERAPY DISCIPLINES, INCLUDING: - Dietary and Nutrition Adequate Nutrition. Nutritional Education. Nutritional Supplements. PATIENT NEEDS CLOSE MEDICAL SUPERVISION BY A REHABILITATION PHYSICIAN FOR: Bowel and Bladder Management Coordination of Treatment Team Medical and Co-Morbidity Management PATIENT REQUIRES 24X7 REHAB NURSING FOR MEDICAL AND FUNCTIONAL MGT. OF THE FOLLOWING DEFICITS: ADL's Ambulation Bowel and Bladder Management Communication Disease Management Medication Management Patient/Family Education Providing Safe Environment Transfers DVT Management Pain Management PATIENT REQUIRES INTENSIVE, COORDINATED INTERDISCIPLINARY APPROACH TO REHAB: Arranging Home Equipment/Services Discharge Planning Family Intervention/Training Instructor Decorating/Case Management PATIENT REHAB POTENTIAL: Valerio MADISON is able and expected to receive 3 hours of individualized therapy daily on at least 5 of every 7 days Vaelrio MADISON's prognosis for significant practical improvement within a reasonable period of time appe ars Good Expected level of measurable improvement will be of a practical value to Valerio MADISON's functional cap acity or adaptations to impairments Has a viable Discharge Plan Medically appropriate; condition is sufficiently stable to participate in intensive rehab program DISCHARGE PLAN: - Estimated Length of Stay (days) 14. - Consensus on plan Discharge plan has been discussed with primary caregiver. Patient/Family is in agreement with the lefty n. Primary caregiver is in agreement with the plan. - Patient/Family Goals Return home with assistance. - Planned Living Setting Upon Discharge Home, to live with Family/Relatives. Transitional Living. RECOMMENDED CARE LEVEL: IRF RECOMMENDATION DETAILS: Recommended Admission to Comprehensive Rehabilitation Program to Increase Functional [place] SCREENER'S COMPLETENESS CONFIRMATION: - Screening Confirmation The patient data collection on this preadmission screening form is finished PHYSICIANS REVIEW AND ADMISSION DETERMINATION Admit - Based on my review of the Pre-Admission Screening results, in my medical judgment and experie nce, I concur with the findings and recommend admission to [facility], as this patient requires an IRF level of care. SIGNATURE PANEL: Clinical Liaison - [electronically] signed by Marty Craig on 01/15/2019 at 14:08 (CDT) Physician Reviewer - [electronically] signed by Dr. Raúl Llanes M.D. on 01/15/2019 at 14:29 (CDT )
[2019-01-15] MEDS ORDERED: TRAMADOL HCL 50 MG TAB PO PRN (17:13)
--- NOTE | 2019-01-15 17:35 | R.HP ---
FACILITY: [facility] ENCOUNTER DATE AND TIME: 01/15/2019 17:32 (CDT) MR#: [id number] NAME CELSO MADISON ADDRESS: [address] [place] [address]: [place] [id number] PHONE: DATE OF : 1935 AGE: 83 SSN# [id number] GENDER: Female DEXTERITY Right-handed MARITAL STATUS RACE White PRE-HOSPITAL LIVING SETTING 01 - Home (private home/apt. board/care, assisted living, senior living, transitional living) PRE-HOSPITAL LIVING WITH Alone ENCOUNTER PHYSICIAN: Dr. Raúl Llanes M.D. REFERRING DOCTOR: mj Echeverria DATE OF ADMISSION: 01/15/2019 16:46 (CDT) REFERRING FACILITY [facility] HOME TYPE AND DETAILS: Type of home: single family house # of levels in the residence: 1 # of steps to enter the residence: 2 # of steps within the residence: 0 ADMISSION DIAGNOSIS: RIGHT MINIMALLY DISPLACED FEMORAL NECK FRACTURE JUST BELOW THE HEAD ONSET DATE: 01/13/2019 PRIMARY DIAGNOSIS-RELATED SURGERIES: Screw fixation of right femoral neck fracture - performed by Jose L Segura on 01/13/2019 SECONDARY/COMORBID DIAGNOSES (TIERED): - N/A hypothyroidism GERD Fluid Retention HISTORY OF PRESENT ILLNESS (HPI): Pt. is a 83 yo Right-handed white female. On 01/13/2019 she was admitted to [facility] with diagnosis RIGHT MINIMALLY DIS PLACED FEMORAL NECK FRACTURE JUST BELOW THE HEAD. Her impairment category is Orthopaedic Disorders 08 - Unilateral Hip Fracture (08.11). Pre-morbidly, Pt. was independent/mod-I in Self-Care, Sphincter Control, Transfers Control, Locomotio n, Communication, and Social Cognition; and she had good Sphincter Control. Currently, she has deficits of Self-Care, Transfers Control, Locomotion, Endurance, Balance, and Safe ty Awareness. Pt. is now referred to [facility] for acute in-patient rehabilitation in order to maximize patient's functional independence in activities of daily living, strength, ROM, and mobi lity. Patient has realistic goal of being discharged at assistance level 6-Amado to reside at Home with Fam tevin/Relatives. Celso Madison is an 83 old female that lives alone in a single rosy house with 2 steps to enter. She was independent ADLs and self care without the use of assistive device. On 01/13/2019, she fell in the kitchen, slipped on tile floor trying to hurry to watch [employer] game and was admitted at [facility]. She is now medically stable but in need of 24-hour nursing, doctor supervision and oversite participate in 3hours of therapy a day/15 hours per week and receive care with an intensive interdisciplinary approach. MEDICATION ALLERGIES: PENICILLIN ENVIRONMENTAL ALLERGIES: None Known - Substance Allergies None Known - Other Allergies None Known PAST MEDICAL HISTORY: Fluid Retention GERD hypothyroidism PAST SURGICAL HISTORY: BACK SURGERY Cholecystectomy NECK SURGERY FAMILY HISTORY: Family history is not contributory. SOCIAL HISTORY: - Home Living Alone REVIEW OF SYSTEMS: - Gen No Chills Fatigue No Fever - Eyes No Double Vision No itchiness - ENMT No Difficulty Swallowing - CVS No Chest Discomfort No Chest Pain Fatigue No Weight Gain - Resp No Cough No Shortness of Breath - GI Continent No Abdominal Pain Constipation No Diarrhea - Continent No Kidney Pain No Painful Urination No Urinary Urgency - MSK Joint Pain Muscle Cramps Stiffness - Skin No Itching No Rash No Suspicious Lesions - Neuro Coordination Difficulty No Difficulty with Concentration No Memory Loss No Seizures Weakness - Psych No Anxiety No Depression No HIV Exposure No Persistent Infections No Seasonal Allergies - Endo No Cold/Heat Intolerance No Excessive Hunger No Excessive Thirst No Excessive Urination PHYSICAL EXAM - Gen Alert and awake Lying in bed No apparent distress Oriented to: person, time, and place - Skin No skin breakdown. Normacephalic - Eyes No abnormalities - ENMT No abnormalities - Neck No abnormalities - CVS RRR - Resp Clear to auscultation - Abd Soft - GI Non distended Deferred - No abnormalities - Ext Mild left lower extremity edema. - MSK 4+/5 weakness in right lower extremity - Neuro 4/5 strength right lower extremity. - Psych No abnormalities VITAL SIGNS Temperature: 99.2 F SBP/DBP: 114/56 Pulse: 79 Resp: 23 NURSING: - Shower allowing shower - Skin care per protocol PRECAUTIONS: - Posterior Hip Precaution No adduction across midline No external rotation No hip flexion >90 degrees No internal rotation No wheel chair propulsion - Weight Bearing Precaution TTWB right LE ACTIVITIES OOB only with supervision FUNCTIONAL STATUS: - Self-Care A. Eating Ind sup B. Grooming Ind sup C. Bathing Ind modA D. Dressing - Upper Ind Gage E. Dressing - Lower Ind maxA F. Toileting Ind maxA - Sphincter Control G: Bladder control Ind Ind H: Bowel control Ind Ind - Transfers Control I. Bed/Chair/Wheelchair Ind modA J. Toilet Ind modA K. Tub/Shower Ind ADNO - Locomotion L. Walk/Wheelchair (C) Ind maxA L. Walk/Wheelchair (W) Ind maxA M. Stairs Ind ADNO - Communication N. Comprehension (B) Ind Ind O. Expression (B) Ind Ind - Social Cognition P. Social Interaction Ind Ind Q. Problem Solving Ind Ind R. Memory Ind Ind - Endurance Fair - Balance Fair - Safety Awareness Fair CURRENT FUNC. DEFICITS: Self-Care, Transfers Control, Locomotion, Endurance, Balance, and Safety Awareness MEDICATIONS: - Other See attached MAR (Medication Administration Record) ASSESSMENT: Pt. is a 83 yo Right-handed white female.On 01/13/2019 she was admitted to [facility] with diagnosis RIGHT MINIMALLY DISPLACED FEMORAL NECK FRACTURE JUST BELOW THE HEAD.Her [facility] ent category is Orthopaedic Disorders 08 - Unilateral Hip Fracture (08.11).Pre-morbidly, Pt. was ind ependent/mod-I in Self-Care, Sphincter Control, Transfers Control, Locomotion, Communication, and Soc ial Cognition; and she had good Sphincter Control.Currently, she has deficits of Self-Care, Transfers Control, Locomotion, Endurance, Balance, and Safety Awareness.Pt. is now referred to [facility] for acute in-patient rehabilitation in order to maximize patient's functional inde pendence in activities of daily living, strength, ROM, and mobility.- Rehab Goal Patient has realistic goal of being discharged at assistance level 6-Amado to reside at Home with Fam tevin/Relatives. Celso Madison is an 83 old female that lives alone in a single rosy house with 2 steps to enter. She was independent ADLs and self care without the use of assistive device. On 01/13/2019, she fell in the kitchen, slipped on tile floor trying to hurry to watch [employer] game and was admitted at [facility]. She is now medically stable but in need of 24-hour nursing, doctor supervision and oversite participate in 3hours of therapy a day/15 hours per week and receive care with an intensive interdisciplinary approach.REHAB PLAN: - Physical Therapy Decreased range of motion - to improve, our physical therapists will perform initial evaluation of pt 's status upon admission and devise an individualized program for increasing patient's Range of Motio n. Gait dysfunction - to improve, our physical therapists will perform initial evaluation of pt's status upon admission and devise an individualized program for Gait Training, and Wheel Chair mobility Inability to transfer - to improve, our physical therapists will perform initial evaluation of pt's s tatus upon admission and devise an individualized program for Bed mobility Need for home safety evaluation - to improve, our physical therapists will perform initial evaluation of pt's status upon admission and devise an individualized program for Home Evaluation Need in caregiver upon discharge - to improve, our physical therapists will perform initial evaluatio n of pt's status upon admission and devise an individualized program for Caregiver Training New precaution - to improve, our physical therapists will perform initial evaluation of pt's status u opal admission and devise an individualized program for Patient precaution education Edema - to improve, our physical therapists will perform initial evaluation of pt's status upon admi ssion and devise an individualized program for Elevation Training, and Lymphedema Therapy Poor balance - to improve, our physical therapists will perform initial evaluation of pt's status upo n admission and devise an individualized program for Balance Training Poor endurance - to improve, our physical therapists will perform initial evaluation of pt's status u opal admission and devise an individualized program for Endurance Training Weakness - to improve, our physical therapists will perform initial evaluation of pt's status upon ad mission and devise an individualized program for Aquatic Therapy, Neuromuscular Reeducation, and Stre ngthening Achieving independence - to improve, our physical therapists will perform initial evaluation of pt's status upon admission and devise an individualized program for Community Reintegration Activities - Occupational Therapy ADL deficits - to improve, our occupation therapists will perform initial evaluation of pt's status u opal admission and devise an individualized program for Bathing, Bed mobility, Community Reintegration , Cooking, Dressing, Eating, Fine Motor Skills, Grooming, Homemaking, Kitchen Mobility, Laundry, Kristen ent Education, Safety Awareness, Splinting - Positioning, Transfers(Toilet, Tub, Shower), and Wheel C hair Management Need for managed care specialist - to improve, our occupation therapists will perform initial evaluation of pt's s tatus upon admission and devise an individualized program for Caregiver Training Weakness - to improve, our occupation therapists will perform initial evaluation of pt's status upon admission and devise an individualized program for Aquatic Therapy, Balance, Endurance, UE ROM, and U E strengthening MEDICAL PLAN: - Anterior Hip Precaution No abduction No active extension No adduction across midline No external rotation No hip flexion >90 degrees No internal rotation - Diet - Liquid Texture Start Regular - Tube Feed Start N/A - Diet Type Start Regular - Posterior Hip Precaution No adduction across midline No external rotation No hip flexion >90 degrees No internal rotation No wheel chair propulsion - Weight Bearing Precaution TTWB right LE - Skin care per protocol - Other See attached MAR (Medication Administration Record) - Diet - Solid Texture Regular - Shower shower DISCHARGE PLAN: - Estimated Length of Stay (days) 14. - Consensus on plan Discharge plan has been discussed with primary caregiver. Patient/Family is in agreement with the lefty n. Primary caregiver is in agreement with the plan. - Patient/Family Goals Return home with assistance. - Planned Living Setting Upon Discharge Home, to live with Family/Relatives. Transitional Living. SIGNATURE PANEL: (CDT)
--- NOTE | 2019-01-15 17:36 | PAPE ---
PATIENT: [facility] MR# [id number] REFERRING DOCTOR mj Echeverria EVALUATION DATE AND TIME 01/15/2019 17:35 (CDT) NAME CELSO MADISON DATE OF 1935 AGE 83 PHONE N# [id number] GENDER female EVALUATING PHYSICIAN Dr. Raúl Llanes M.D. ADMISSION DIAGNOSIS: RIGHT MINIMALLY DISPLACED FEMORAL NECK FRACTURE JUST BELOW THE HEAD ONSET DATE 01/13/2019 SECONDARY/COMORBID DIAGNOSES TIERED: - N/A hypothyroidism GERD Fluid Retention POST-ADMISSION FUNCTIONAL/MEDICAL STATUS: - Bladder Same accident frequency: Ind - No accidents in the past 7 days - Bowel Same accident frequency: Ind - No accidents in the past 7 days - Walking Same score based on distance walked: 1(<=50ft) - Wheelchair Same score based on distance traveled: 0(N/A) STATUS CHANGE EVALUATION: No change in Functional or Medical Status is identified compared with Pre-Admission screening. PATIENT NEEDS CLOSE MEDICAL SUPERVISION BY A REHABILITATION PHYSICIAN FOR: Bowel and Bladder Management Coordination of Treatment Team Medical and Co-Morbidity Management PATIENT REQUIRES 24X7 REHAB NURSING FOR MEDICAL AND FUNCTIONAL MGT. OF THE FOLLOWING DEFICITS: ADL's Ambulation Bowel and Bladder Management Communication Disease Management Medication Management Patient/Family Education Providing Safe Environment Transfers DVT Management Pain Management PATIENT REQUIRES INTENSIVE, COORDINATED INTERDISCIPLINARY APPROACH TO REHAB: Arranging Home Equipment/Services Discharge Planning Family Intervention/Training Technical Intern/Case Management LIST OF IDENTIFIED AND POTENTIAL PROBLEMS: Alteration in leisure activities Bladder, Incontinence Bowel, Incontinence Infection, Actual or Potential Mobility Impaired Pain, Alteration in Comfort Self Care Deficit Skin Integrity, Actual or Potential Urinary Tract Infection (UTI), Actual or Potential RISK FOR COMPLICATIONS - GERD Alteration in sleep. Aspiration. Dehydration. Malnutrition. Pain. INTERVENTIONS - GERD Altered diet. Elevation of head of bed. Medications. Nausea/vomiting. Nighttime food/fluid restrictio ns. Nutrition. PATIENT COULD BE AT RISK FOR COMPLICATIONS FROM ADVERSE MEDICAL CONDITIONS DUE TO HIS/HER COMORBIDITI ES AND THE RIGORS OF THE INTENSIVE REHABILLITATION PROGRAM. METHODS OR INTERVENTIONS TO AVOID COMPLIC ATIONS INCLUDE: - Infection Clinical staff to assess and manage the signs and symptoms of infection including fever, redness, war mth, etc. - Urinary Tract Infection - Falls Patient will be evaluated for Fall Precautions and will be placed on Fall Precautions as indicated pe r protocol. - Skin Breakdown Nursing will assess skin daily using assessment tool and will place on Skin Breakdown Precautions as indicated per protocol. - Pain Clinical staff may employ non-medication methods such as massage, distraction, decrease stimulus, etc . as needed. Clinical staff will assess patient's pain level every shift per protocol to assess and e nsure pain management effectiveness. Medications will be given and the pain level re-assessed. PRELIMINARY PLAN OF CARE: - Physical Therapy Patient needs Physical Therapy for a daily minimum of 1.5 hours at least 5 out of 7 days, to improve: Mobility, Strengthening, Transfers, Stretching, ROM, Endurance, Ability to manage stairs, Gait, and Balance. - Speech Therapy Patient needs Speech Therapy for a daily minimum of 0.5 hours at least 5 out of 7 days, to improve: S wallowing, Cognition, Language Skills, and Compensatory Strategies. - Rehabilitation Nursing Patient requires 24x7 Rehabilitation Nursing for: Pain Issues, Identifying and preventing risk factor s, Monitoring and reporting current medical conditions, Assisting with ambulation and transfer, Lauro ting with all ADL-s, Teaching patients about disease process and medications, Family teaching, Provid ing safe environment, Bowel and Bladder Issues, Skin Integrity, and Medication Management. Patient needs Technical Intern and/or Case Management for: Discharge Planning, Arranging Home Equipmen t or Services, and Family Interventions. - Dietary and Nutrition Services Patient needs Dietary and Nutrition Services for: Adequate Nutrition, Nutritional Supplements, and Nu tritional Education. - Occupational Therapy Patient needs Occupational Therapy for a daily minimum of 1.5 hours at least 5 out of 7 days, to impr ove Activities of Daily Living, including: Eating, Grooming, Bathing, Dressing, Toileting, Toilet Tra nsfers, Community Reintegration, Higher functional activities, Adaptive Equipment, Splinting, Househo ld Tasks, and Other activities as determined. POTENTIAL FUNCTIONAL GOALS FOR PATIENT TO ACHIEVE BY DISCHARGE: - Safety Precaution Patient will remain free from falls or injury at time of discharge. - Bed Mobility Patient will perform bed mobility at 4-Gage level of assistance. - Transfers Patient will complete transfers from bed to chair at 4-Gage level of assistance. - Mobility Patient will ambulate 150 ft with 4-Gage level of assistance with RW. PATIENT REHAB POTENTIAL Valerio MADISON is able and expected to receive 3 hours of individualized therapy daily on at least 5 of every 7 days Valerio MADISON's prognosis for significant practical improvement within a reasonable period of time appe ars Good Expected level of measurable improvement will be of a practical value to SherryJadyn MADISON's functional cap acity or adaptations to impairments Has a viable Discharge Plan Medically appropriate; condition is sufficiently stable to participate in intensive rehab program DISCHARGE PLAN: - Estimated Length of Stay (days) 14. - Consensus on plan Discharge plan has been discussed with primary caregiver. Patient/Family is in agreement with the lefty n. Primary caregiver is in agreement with the plan. - Patient/Family Goals Return home with assistance. - Planned Living Setting Upon Discharge Home, to live with Family/Relatives. Transitional Living. CONCLUSION ON REHABILITATION NECESSITY: I have evaluated patient's pre-admission functional status and, comparing it to the patient's post-ad mission functional status now, I conclude that the pre-admission assessment was accurate. Patient's c ondition on admission supports the medical necessity of admission to IRF. It is safe to proceed with patient's therapy program. SIGNATURE PANEL: (CDT)
--- NOTE | 2019-01-15 19:02 | FAST ---
ENCOUNTER DATE AND TIME: 01/15/2019 08:00 (CDT) NAME CELSO MADISON DATE OF : 1935 DATE OF ADMISSION: 01/15/2019 16:46 (CDT) PHONE: AGE: 83 SSN# [id number] GENDER: Female ENCOUNTER PHYSICIAN: Dr. Raúl Llanes M.D. ADMISSION DIAGNOSIS: - Orthopaedic Disorders 08 - Unilateral Hip Fracture (08.11) RIGHT MINIMALLY DISPLACED FEMORAL NECK FRACTURE JUST BELOW THE HEAD. EATING: Activity did not occur on this shift EATING - SCORE: 0-UNK GROOMING: Activity did not occur on this shift GROOMING - SCORE: 0-UNK BATHING: Activity did not occur on this shift BATHING - SCORE: 0-UNK DRESSING - UPPER BODY: Activity did not occur on this shift Patient is not dressing in public clothing ARTICLES SCORE Total number of steps: 0 DRESSING - UPPER BODY - SCORE: 0-UNK DRESSING - LOWER BODY: Activity did not occur on this shift Patient is not dressing in public clothing ARTICLES SCORE Total number of steps: 0 DRESSING - LOWER BODY - SCORE: 0-UNK TOILETING: Activity did not occur on this shift TOILETING - SCORE: 0-UNK BLADDER MANAGEMENT: Activity did not occur on this shift BLADDER MANAGEMENT - SCORE: 7-IND BOWEL MANAGEMENT: Activity did not occur on this shift BOWEL MANAGEMENT - SCORE: 7-IND TRANSFERS: BED, CHAIR, WHEELCHAIR: TRANSFERS: BED, CHAIR, WHEELCHAIR - STEP 1: Does the patient require assistance of a person or device, or need extra time with bed, chair, or whe elchair transfers? Yes. TRANSFERS: BED, CHAIR, WHEELCHAIR - STEP 2: Does the patient require the assistance of a helper? Yes. TRANSFERS: BED, CHAIR, WHEELCHAIR - STEP 3: How much assistance does the patient require from the helper? Lifting of the patient TRANSFERS: BED, CHAIR, WHEELCHAIR - STEP 4: Does the helper lift the patient ONLY up? ONLY down? Up AND Down? ONLY up. TRANSFERS: BED, CHAIR, WHEELCHAIR - SCORE: 3-MOD TRANSFERS: TOILET: TRANSFERS: TOILET - STEP 1: Does the patient require the assistance of a person or device, or need extra time with toilet transfe rs? Yes. TRANSFERS: TOILET - STEP 2: Does the patient require the assistance of a helper? Yes. TRANSFERS: TOILET - STEP 3: How much assistance does the patient require from the helper? Patient performs half or more of the tr ansferring tasks TRANSFERS: TOILET - STEP 4: Does the patient need only incidental help such as contact guard or steadying during toilet transfer? No. Patient needs more than incidental help TRANSFERS: TOILET - SCORE: 3-MOD TRANSFERS: SHOWER: Activity did not occur on this shift TRANSFERS: SHOWER - SCORE: 0-UNK TRANSFERS: TUB: Activity did not occur on this shift TRANSFERS: TUB - SCORE: 0-UNK LOCOMOTION: WALK: Patient walks less than 50 feet LOCOMOTION: WALK - SCORE: 1-DEP LOCOMOTION: WHEELCHAIR: Patient propels wheelchair less than 50 ft LOCOMOTION: WHEELCHAIR - SCORE: 1-DEP LOCOMOTION: STAIRS: Activity did not occur on this shift LOCOMOTION: STAIRS - SCORE: 0-UNK COMPREHENSION: COMPREHENSION - SCORE: 0-UNK EXPRESSION EXPRESSION - SCORE: 0-UNK SOCIAL INTERACTION: SOCIAL INTERACTION - SCORE: 0-UNK PROBLEM SOLVING: PROBLEM SOLVING - SCORE: 0-UNK MEMORY: MEMORY - SCORE: 0-UNK SIGNATURE PANEL: The following modified sections: Transfers: Bed, Chair, Wheelchair - Score, Transfers: Toilet - Score , Locomotion: Walk - Score, Locomotion: Wheelchair - Score, Locomotion: Stairs - Score were [electron chitra] signed by Chris Leonard PT on FriJan 15 2019 19:01:38 GMT-0500 (Central Daylight Time)
[2019-01-15] MEDS: MAGNESIUM OXIDE 400 MG TAB PO SCH (20:00)
[2019-01-15] MEDS: DOCUSATE NA/SENNA CONC 1 TAB PO SCH (20:15)
[2019-01-15] MEDS: CRANBERRY FRUIT EXTRACT 200 MG CAP PO SCH (20:15)
[2019-01-15] MEDS: TRAMADOL HCL 50 MG TAB PO PRN (20:17)
--- NOTE | 2019-01-15 20:30 | FAST ---
ENCOUNTER DATE AND TIME: 01/15/2019 08:00 (CDT) NAME CELSO MADISON DATE OF : 1935 DATE OF ADMISSION: 01/15/2019 16:46 (CDT) PHONE: AGE: 83 N# [id number] GENDER: Female ENCOUNTER PHYSICIAN: Dr. Raúl Llanes M.D. ADMISSION DIAGNOSIS: - Orthopaedic Disorders 08 - Unilateral Hip Fracture (08.11) RIGHT MINIMALLY DISPLACED FEMORAL NECK FRACTURE JUST BELOW THE HEAD. EATING: EATING - STEP 1: Does the patient require the assistance of a person or device, or need extra time when eating? No. EATING - SCORE: 7-IND GROOMING: Comb/brush hair Wash, rinse, and dry face Wash, rinse, and dry hands GROOMING - STEP 1: Does the patient require the assistance of a person or device, or need extra time when grooming? No. GROOMING - SCORE: 7-IND BATHING: Abdomen Buttocks Chest Left arm Left lower leg and foot Left upper leg Perineal area Right arm Right lower leg and foot Right upper leg BATHING - STEP 1: Does the patient require the assistance of a person or device, or need extra time when bathing? Yes. BATHING - STEP 2: Does the patient require the assistance of a helper? Yes. BATHING - STEP 3: How much assistance does the patient require from the helper? More than just incidental help BATHING - STEP 4: What percent of the body parts did the patient bathe WITHOUT the helper? Half or more of the body par ts BATHING - SCORE: 3-MOD DRESSING - UPPER BODY: Button down shirt or blouse - NOT tucked in (four steps) ARTICLES SCORE Total number of steps: 4 DRESSING - UPPER BODY - STEP 1: Does the patient require help from a person or device, or need extra time when dressing above the coni st? Yes. DRESSING - UPPER BODY - STEP 2: Does the patient require the assistance of a helper? Yes. DRESSING - UPPER BODY - STEP 3: Does the helper touch the patient while dressing? No. DRESSING - UPPER BODY - SCORE: 5-SUP DRESSING - LOWER BODY: Elastic waist pants (three steps) Sock - Left foot (one step) Sock - Right foot (one step) Underwear (three steps) ARTICLES SCORE Total number of steps: 8 DRESSING - LOWER BODY - STEP 1: Does the patient require help from a person or device, or need extra time when dressing below the coni st? Yes. DRESSING - LOWER BODY - STEP 2: Does the patient require the assistance of a helper? Yes. DRESSING - LOWER BODY - STEP 3: Does the helper touch the patient while dressing? Yes. DRESSING - LOWER BODY - STEP 4: How many of the total steps does the patient complete on his/her own? 0 DRESSING - LOWER BODY - STEP 5: Does patient require total assistance for dressing below the waist such as the helper holding clothin g and performing basically all the activities? Yes. DRESSING - LOWER BODY - SCORE: 1-DEP TOILETING: TOILETING - STEP 1: Does the patient require the assistance of a person or device, or need extra time with toileting? Yes . TOILETING - STEP 2: Does the patient require the assistance of a helper? Yes. TOILETING - STEP 3: How much assistance does the patient require from the helper? Hands-on assistance from the helper TOILETING - STEP 4: Of the 3 tasks: 1) Adjusting clothing prior to use, 2) Cleansing of perineal area, 3) Adjusting clot alejandro after use; How many tasks does the patient perform WITHOUT assistance of the helper? Two tasks TOILETING - SCORE: 3-MOD BLADDER MANAGEMENT: Activity did not occur on this shift BLADDER MANAGEMENT - SCORE: 7-IND BOWEL MANAGEMENT: Activity did not occur on this shift BOWEL MANAGEMENT - SCORE: 7-IND TRANSFERS: BED, CHAIR, WHEELCHAIR: Activity did not occur on this shift TRANSFERS: BED, CHAIR, WHEELCHAIR - SCORE: 0-UNK TRANSFERS: TOILET: TRANSFERS: TOILET - STEP 1: Does the patient require the assistance of a person or device, or need extra time with toilet transfe rs? Yes. TRANSFERS: TOILET - STEP 2: Does the patient require the assistance of a helper? Yes. TRANSFERS: TOILET - STEP 3: How much assistance does the patient require from the helper? Patient performs less than half of the transferring tasks TRANSFERS: TOILET - STEP 4: Does the patient require total assistance for the toilet transfer such as the helper doing basically all the lifting? No. TRANSFERS: TOILET - SCORE: 2-MAX TRANSFERS: SHOWER: TRANSFERS: SHOWER - STEP 1: Does the patient require the assistance of a person or device, or need extra time with shower transfe rs? Yes. TRANSFERS: SHOWER - STEP 2: Does the patient require the assistance of a helper? Yes. TRANSFERS: SHOWER - STEP 3: How much assistance does the patient require from the helper? More than incidental help TRANSFERS: SHOWER - STEP 4: How much more help does the patient require from the helper? Lifting the patient up AND down from the wheelchair onto the shower chair TRANSFERS: SHOWER - SCORE: 2-MAX TRANSFERS: TUB: Activity did not occur on this shift TRANSFERS: TUB - SCORE: 0-UNK LOCOMOTION: WALK: Activity did not occur on this shift LOCOMOTION: WALK - SCORE: 0-UNK LOCOMOTION: WHEELCHAIR: Activity did not occur on this shift LOCOMOTION: WHEELCHAIR - SCORE: 0-UNK LOCOMOTION: STAIRS: Activity did not occur on this shift LOCOMOTION: STAIRS - SCORE: 0-UNK COMPREHENSION: COMPREHENSION: TYPE: Both COMPREHENSION - STEP 1: Does the patient require help from a person or device, or need extra time to understand complex and a bstract ideas (such as current events, finances, discharge planning, medical issues, relationships, e tc)? No. COMPREHENSION - STEP 2: Does the patient need extra time, require an assistive device (such as glasses for visual comprehensi on or a hearing aid for auditory comprehension) or does s/he have mild difficulty understanding compl ex and abstract information? Yes. COMPREHENSION - SCORE: 6-DEMETRI EXPRESSION EXPRESSION: TYPE: Both EXPRESSION - STEP 1: Does the patient require help from a person or device, or need extra time expressing complex and abst ract ideas (such as current events, finances, discharge planning, medical issues, relationships, etc) ? No. EXPRESSION - STEP 2: Does the patient need extra time, require an assistive device (such as augmentive communication syste m or a communication board), OR does s/he have mild difficulty expressing complex and abstract ideas (including mild dysarthria or mild word-find problems)? Yes. EXPRESSION - SCORE: 6-DEMETRI SOCIAL INTERACTION: SOCIAL INTERACTION - STEP 1: Does the patient require a helper to interact with others in social and therapeutic situations? No. SOCIAL INTERACTION - STEP 2: Does the patient need extra time in social situations, OR does s/he interact with staff, other patien ts, and family members ONLY in structured environments, OR does s/he require medication for social in teraction? Yes, patient needs extra time SOCIAL INTERACTION - SCORE: 6-DEMETRI PROBLEM SOLVING: PROBLEM SOLVING - STEP 1: Does the patient need help from a person or device, or need extra time to solve complex problems such as managing a checking account or confronting interpersonal problems? No. PROBLEM SOLVING - STEP 2: Does the patient require extra time to make decisions or solve problems, OR does s/he have slight dif ficulty reading, initiating, or self-correcting in unfamiliar situations? Yes, patient needs extra ti me. PROBLEM SOLVING - SCORE: 6-DEMETRI MEMORY: MEMORY - STEP 1: Does the patient need help from a person or device, or need extra time to remember frequently encount ered people, daily routines, and executing requests? No. MEMORY - STEP 2: Does the patient have slight difficulty recognizing frequently encountered people, daily routines, or executing requests without the need for repetition or using self-initiated or environmental cues to remember? Yes. MEMORY - SCORE: 6-DEMETRI SIGNATURE PANEL: The following modified sections: Eating - Score, Grooming - Score, Bathing - Score, Dressing - Upper Body - Score, Dressing - Lower Body - Score, Toileting - Score, Transfers: Bed, Chair, Wheelchair - S core, Transfers: Tub - Score, Transfers: Toilet - Score, Transfers: Shower - Score, Comprehension - S core, Expression - Score, Social Interaction - Score, Problem Solving - Score, Memory - Score were [e lectronically] signed by Jenelle Allen OT on FriJan 15 2019 20:29:27 T-0500 (Central Daylight T ivan)
[2019-01-16 03:55] LABS: Urine Appearance CLOUDY; Urine Bilirubin NEGATIVE (NEG); Urine Blood 2+ (NEG); Urine Color YELLOW; Urine Glucose NEGATIVE (NEG); Urine Protein TRACE (NEG); Urine Specific Gravity 1.015 (1.005-1.030); Urine Urobilinogen 0.2 mg/dL (0.2-1.0)
[2019-01-16 05:40] LABS: Urine Culture Reflex Order NOT NEEDED
[2019-01-16 05:41] LABS: Urine Bacteria >50 /HPF (<20); Urine RBC <5 /HPF (NONE SEEN)
[2019-01-16] MEDS: LEVOTHYROXINE SOD 0.075 MG TAB PO SCH (06:43)
[2019-01-16 06:58] LABS: Absolute Lymphocytes (CBC) 2.2 K/uL (0.7-4.9); Basophils % 0.5 % (0-1.3); Lymphocytes % 20.4 % (15.3-44.8); MPV 9.3 fL (7.6-11.3); RBC Red Blood Cell Count 3.65 M/uL (3.86-4.86)
[2019-01-16 07:20] LABS: Albumin 2.6 g/dL (3.4-5.0); BUN Blood Urea Nitrogen 6 mg/dL (7-18); Bicarbonate 27 mmol/L (21-32); Glucose Level 91 mg/dL (74-106); Magnesium 2.1 mg/dL (1.8-2.4); Potassium 3.9 mmol/L (3.5-5.1); Prealbumin 12.4 mg/dL (20-40); Sodium Level 141 mmol/L (136-145)
[2019-01-16] MEDS ORDERED: POTASSIUM CL SA 10 MEQ TAB PO SCH (08:00)
[2019-01-16] MEDS ORDERED: TORSEMIDE 20 MG TAB PO SCH (08:00)
[2019-01-16] MEDS ORDERED: RANITIDINE 150 MG TABLET PO SCH (08:00)
[2019-01-16] MEDS: TRAMADOL HCL 50 MG TAB PO PRN ×3 (08:22→20:50)
[2019-01-16] MEDS: RIVAROXABAN 10 MG TABLET PO SCH (08:25)
[2019-01-16] MEDS: CRANBERRY FRUIT EXTRACT 200 MG CAP PO SCH ×2 (08:26→20:48)
[2019-01-16] MEDS: MAGNESIUM OXIDE 400 MG TAB PO SCH ×2 (08:26→20:00)
[2019-01-16] MEDS ORDERED: POLYETHYL GLY 3350 17 GM/DOSE PO PRN (10:14)
[2019-01-16] MEDS ORDERED: MAGNESIUM HYDROXIDE 8% 30 ML PO PRN (10:14)
--- NOTE | 2019-01-16 10:24 | P.PN ---
Subjective Date of Service: 01/16/19 Chief Complaint: SOME DYSPNEA, EDEMA. Subjective: C/O voiced SHE IS STABLE,COMFORTABLE, HAS SOME DYSPNEA WITHOUT OXYGEN. CHR DJD. SHE LOVES HER CONCOCTION MADE FROM [employer] AND SHE WILL GET IT HERE. Review of Systems 10-point ROS is otherwise unremarkable Physical Examination - Vital Signs Temperature: 98.2 F Blood Pressure: 152/68 Pulse: 78 Respirations: 16 Pulse Ox (%): 94 - Physical Exam General: Alert, Mild distress HEENT: Atraumatic, PERRLA, EOMI Neck: Supple, JVD not distended Respiratory: Clear to auscultation bilaterally, Normal air movement Cardiovascular: Regular rate/rhythm, Normal S1 S2 Gastrointestinal: Normal bowel sounds, No tenderness Musculoskeletal: No warmth, Other Integumentary: No rashes Neurological: Normal speech, Normal tone, Normal affect Lymphatics: No axilla or inguinal lymphadenopathy - Studies Laboratory Data (last 24 hrs) 01/16/19 06:45: Sodium 141, Potassium 3.9, BUN 6 L, Creatinine 0.52 L, Glucose 91, Magnesium 2.1 01/16/19 06:45: WBC 10.7 D, Hgb 11.5 L, Hct 34.0 L, Plt Count 194 D Medications List Reviewed: Yes Assessment And Plan - Current Problems (Diagnosis) (1) DJD (degenerative joint disease) Current Visit: Yes Status: Chronic Qualifiers: 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 STABLE FOR NOW.
--- NOTE | 2019-01-16 11:07 | FAST ---
SHIFT START DATE/TIME: 01/16/2019 07:00 (CDT) SHIFT END DATE/TIME: 01/16/2019 19:00 (CDT) NAME CELSO MADISON DATE OF : 1935 DATE OF ADMISSION: 01/15/2019 16:46 (CDT) PHONE: AGE: 83 SSN# [id number] GENDER: Female ENCOUNTER PHYSICIAN: Dr. Raúl Llanes M.D. ADMISSION DIAGNOSIS: - Orthopaedic Disorders 08 - Unilateral Hip Fracture (08.11) RIGHT MINIMALLY DISPLACED FEMORAL NECK FRACTURE JUST BELOW THE HEAD. EATING: EATING - STEP 1: Does the patient require the assistance of a person or device, or need extra time when eating? Yes. EATING - STEP 2: Does the patient require the assistance of a helper? No, patient only requires an assistive device, O R s/he takes more than reasonable time to eat, OR there is a safety concern, OR s/he requires modifie d food consistency EATING - SCORE: 6-DEMETRI GROOMING: Activity did not occur on this shift GROOMING - SCORE: 0-UNK BATHING: Activity did not occur on this shift BATHING - SCORE: 0-UNK DRESSING - UPPER BODY: Activity did not occur on this shift ARTICLES SCORE Total number of steps: 0 DRESSING - UPPER BODY - SCORE: 0-UNK DRESSING - LOWER BODY: Activity did not occur on this shift ARTICLES SCORE Total number of steps: 0 DRESSING - LOWER BODY - SCORE: 0-UNK TOILETING: TOILETING - STEP 1: Does the patient require the assistance of a person or device, or need extra time with toileting? Yes . TOILETING - STEP 2: Does the patient require the assistance of a helper? Yes. TOILETING - STEP 3: How much assistance does the patient require from the helper? Hands-on assistance from the helper TOILETING - STEP 4: Of the 3 tasks: 1) Adjusting clothing prior to use, 2) Cleansing of perineal area, 3) Adjusting clot alejandro after use; How many tasks does the patient perform WITHOUT assistance of the helper? Two tasks TOILETING - SCORE: 3-MOD BLADDER MANAGEMENT: BLADDER MANAGEMENT - STEP 1: Does the patient control the bladder completely and intentionally without equipment or devices or med ications, and is always continent? No. BLADDER MANAGEMENT - STEP 2: Does the patient require the assistance of a helper? No, patient requires and independently uses an a ssistive device, such as a urinal, bedpan, bedside commode, catheter, absorbent pad, or collecting de vice BLADDER MANAGEMENT - SCORE: 6-DEMETRI BOWEL MANAGEMENT: Activity did not occur on this shift BOWEL MANAGEMENT - SCORE: 7-IND TRANSFERS: BED, CHAIR, WHEELCHAIR: TRANSFERS: BED, CHAIR, WHEELCHAIR - STEP 1: Does the patient require assistance of a person or device, or need extra time with bed, chair, or whe elchair transfers? Yes. TRANSFERS: BED, CHAIR, WHEELCHAIR - STEP 2: Does the patient require the assistance of a helper? Yes. TRANSFERS: BED, CHAIR, WHEELCHAIR - STEP 3: How much assistance does the patient require from the helper? Lifting of the legs TRANSFERS: BED, CHAIR, WHEELCHAIR - STEP 4: How many legs does the patient require the helper to lift? both legs TRANSFERS: BED, CHAIR, WHEELCHAIR - SCORE: 3-MOD TRANSFERS: TOILET: TRANSFERS: TOILET - STEP 1: Does the patient require the assistance of a person or device, or need extra time with toilet transfe rs? Yes. TRANSFERS: TOILET - STEP 2: Does the patient require the assistance of a helper? Yes. TRANSFERS: TOILET - STEP 3: How much assistance does the patient require from the helper? Patient performs half or more of the tr ansferring tasks TRANSFERS: TOILET - STEP 4: Does the patient need only incidental help such as contact guard or steadying during toilet transfer? No. Patient needs more than incidental help TRANSFERS: TOILET - SCORE: 3-MOD TRANSFERS: SHOWER: Activity did not occur on this shift TRANSFERS: SHOWER - SCORE: 0-UNK TRANSFERS: TUB: Activity did not occur on this shift TRANSFERS: TUB - SCORE: 0-UNK LOCOMOTION: WALK: Activity did not occur on this shift LOCOMOTION: WALK - SCORE: 0-UNK LOCOMOTION: WHEELCHAIR: Activity did not occur on this shift LOCOMOTION: WHEELCHAIR - SCORE: 0-UNK COMPREHENSION: COMPREHENSION: TYPE: Both COMPREHENSION - STEP 1: Does the patient require help from a person or device, or need extra time to understand complex and a bstract ideas (such as current events, finances, discharge planning, medical issues, relationships, e tc)? No. COMPREHENSION - STEP 2: Does the patient need extra time, require an assistive device (such as glasses for visual comprehensi on or a hearing aid for auditory comprehension) or does s/he have mild difficulty understanding compl ex and abstract information? Yes. COMPREHENSION - SCORE: 6-DEMETRI EXPRESSION EXPRESSION: TYPE: Both EXPRESSION - STEP 1: Does the patient require help from a person or device, or need extra time expressing complex and abst ract ideas (such as current events, finances, discharge planning, medical issues, relationships, etc) ? No. EXPRESSION - STEP 2: Does the patient need extra time, require an assistive device (such as augmentive communication syste m or a communication board), OR does s/he have mild difficulty expressing complex and abstract ideas (including mild dysarthria or mild word-find problems)? Yes. EXPRESSION - SCORE: 6-DEMETRI SOCIAL INTERACTION: SOCIAL INTERACTION - STEP 1: Does the patient require a helper to interact with others in social and therapeutic situations? No. SOCIAL INTERACTION - STEP 2: Does the patient need extra time in social situations, OR does s/he interact with staff, other patien ts, and family members ONLY in structured environments, OR does s/he require medication for social in teraction? Yes, patient needs extra time SOCIAL INTERACTION - SCORE: 6-DEMETRI PROBLEM SOLVING: PROBLEM SOLVING - STEP 1: Does the patient need help from a person or device, or need extra time to solve complex problems such as managing a checking account or confronting interpersonal problems? No. PROBLEM SOLVING - STEP 2: Does the patient require extra time to make decisions or solve problems, OR does s/he have slight dif ficulty reading, initiating, or self-correcting in unfamiliar situations? Yes, patient needs extra ti me. PROBLEM SOLVING - SCORE: 6-DEMETRI MEMORY: MEMORY - STEP 1: Does the patient need help from a person or device, or need extra time to remember frequently encount ered people, daily routines, and executing requests? No. MEMORY - STEP 2: Does the patient have slight difficulty recognizing frequently encountered people, daily routines, or executing requests without the need for repetition or using self-initiated or environmental cues to remember? Yes. MEMORY - SCORE: 6-DEMETRI SIGNATURE PANEL: The following modified sections: Eating - Score, Grooming - Score, Bathing - Score, Dressing - Upper Body - Score, Dressing - Lower Body - Score, Toileting - Score, Bladder Management - Score, Bowel Man agement - Score, Transfers: Bed, Chair, Wheelchair - Score, Transfers: Toilet - Score, Transfers: Maggi wer - Score, Transfers: Tub - Score, Locomotion: Walk - Score, Locomotion: Wheelchair - Score, Compre hension - Score, Expression - Score, Social Interaction - Score, Problem Solving - Score, Memory - Sc ore were [electronically] signed by Romeo Mcrae on Sat Jan 16 2019 11:06:35 GMT-0500 (Central Daylight Time)
--- NOTE | 2019-01-16 12:30 | RAD REPORT ---
EXAM DESCRIPTION: RAD - Chest Single View - 01/16/2019 12:05 pm CLINICAL HISTORY: Shortness of breath COMPARISON: January 13 TECHNIQUE: AP portable chest image was obtained 1157 hour . FINDINGS: No new consolidations seen. Interstitial pattern is prominent. Bilateral pleural effusions seen. These are new from comparison. Heart and vasculature are normal. No measurable pleural effusio n and no pneumothorax. No acute bony abnormality seen. No acute aortic findings suspected. IMPRESSION: Small bilateral pleural effusions have developed since the January 13 study. Interstitial opacification similar to comparison. Mild interstitial edema or infiltrate can be masked by this baseline presentation.
[2019-01-16] MEDS: ALBUTEROL 2.5 MG/3 ML NEB SOL NEB SCH ×2 (14:25→20:00)
[2019-01-16] MEDS: IPRATROPIUM BROM 0.5MG/2.5ML NEB SCH ×2 (14:25→20:00)
[2019-01-16] MEDS ORDERED: POTASSIUM CL SA 10 MEQ TAB PO ONE (15:45)
[2019-01-16] MEDS ORDERED: TORSEMIDE 20 MG TAB PO ONE (16:00)
[2019-01-16] MEDS: DOCUSATE NA/SENNA CONC 1 TAB PO SCH (20:49)
[2019-01-16] MEDS: JUVEN PACKET PO SCH (20:55)
[2019-01-17] MEDS: ALBUTEROL 2.5 MG/3 ML NEB SOL NEB SCH (02:00)
[2019-01-17] MEDS: IPRATROPIUM BROM 0.5MG/2.5ML NEB SCH (02:00)
[2019-01-17] MEDS: RANITIDINE 150 MG TABLET PO SCH (05:30)
[2019-01-17] MEDS: LEVOTHYROXINE SOD 0.075 MG TAB PO SCH (05:30)
[2019-01-17] MEDS ORDERED: ALBUTEROL 2.5 MG/3 ML NEB SOL NEB PRN (07:27)
[2019-01-17] MEDS ORDERED: IPRATROPIUM BROM 0.5MG/2.5ML NEB PRN (07:28)
[2019-01-17] MEDS ORDERED: POTASSIUM CL SA 10 MEQ TAB PO SCH (08:00)
[2019-01-17] MEDS: MAGNESIUM OXIDE 400 MG TAB PO SCH ×2 (08:00→19:58)
[2019-01-17] MEDS: RIVAROXABAN 10 MG TABLET PO SCH (08:07)
[2019-01-17] MEDS: POTASSIUM CL SA 10 MEQ TAB PO SCH (08:07)
[2019-01-17] MEDS: CRANBERRY FRUIT EXTRACT 200 MG CAP PO SCH ×2 (08:08→19:58)
[2019-01-17] MEDS: TORSEMIDE 20 MG TAB PO SCH (08:08)
[2019-01-17] MEDS: JUVEN PACKET PO SCH ×2 (08:11→19:58)
[2019-01-17] MEDS: TRAMADOL HCL 50 MG TAB PO PRN ×3 (09:31→21:40)
--- NOTE | 2019-01-17 10:55 | FAST ---
SHIFT START DATE/TIME: 01/17/2019 07:00 (CDT) SHIFT END DATE/TIME: 01/17/2019 19:00 (CDT) NAME CELSO MADISON DATE OF : 1935 DATE OF ADMISSION: 01/15/2019 16:46 (CDT) PHONE: AGE: 83 N# [id number] GENDER: Female ENCOUNTER PHYSICIAN: Dr. Raúl Llanes M.D. ADMISSION DIAGNOSIS: - Orthopaedic Disorders 08 - Unilateral Hip Fracture (08.11) RIGHT MINIMALLY DISPLACED FEMORAL NECK FRACTURE JUST BELOW THE HEAD. EATING: EATING - STEP 1: Does the patient require the assistance of a person or device, or need extra time when eating? Yes. EATING - STEP 2: Does the patient require the assistance of a helper? No, patient only requires an assistive device, O R s/he takes more than reasonable time to eat, OR there is a safety concern, OR s/he requires modifie d food consistency EATING - SCORE: 6-DEMETRI GROOMING: Comb/brush hair Oral care GROOMING - STEP 1: Does the patient require the assistance of a person or device, or need extra time when grooming? Yes. GROOMING - STEP 2: Does the patient require the assistance of a helper? Yes. GROOMING - STEP 3: How much assistance does the patient require from the helper? Cuing, coaxing, instructions, or encour agement for completion of grooming GROOMING - SCORE: 5-SUP BATHING: Activity did not occur on this shift BATHING - SCORE: 0-UNK DRESSING - UPPER BODY: Activity did not occur on this shift ARTICLES SCORE Total number of steps: 0 DRESSING - UPPER BODY - SCORE: 0-UNK DRESSING - LOWER BODY: Activity did not occur on this shift ARTICLES SCORE Total number of steps: 0 DRESSING - LOWER BODY - SCORE: 0-UNK TOILETING: TOILETING - STEP 1: Does the patient require the assistance of a person or device, or need extra time with toileting? Yes . TOILETING - STEP 2: Does the patient require the assistance of a helper? Yes. TOILETING - STEP 3: How much assistance does the patient require from the helper? Hands-on assistance from the helper TOILETING - STEP 4: Of the 3 tasks: 1) Adjusting clothing prior to use, 2) Cleansing of perineal area, 3) Adjusting clot alejandro after use; How many tasks does the patient perform WITHOUT assistance of the helper? Two tasks TOILETING - SCORE: 3-MOD BLADDER MANAGEMENT: BLADDER MANAGEMENT - STEP 1: Does the patient control the bladder completely and intentionally without equipment or devices or med ications, and is always continent? No. BLADDER MANAGEMENT - STEP 2: Does the patient require the assistance of a helper? No, patient requires and independently uses an a ssistive device, such as a urinal, bedpan, bedside commode, catheter, absorbent pad, or collecting de vice BLADDER MANAGEMENT - SCORE: 6-DEMETRI BOWEL MANAGEMENT: Activity did not occur on this shift BOWEL MANAGEMENT - SCORE: 7-IND TRANSFERS: BED, CHAIR, WHEELCHAIR: TRANSFERS: BED, CHAIR, WHEELCHAIR - STEP 1: Does the patient require assistance of a person or device, or need extra time with bed, chair, or whe elchair transfers? Yes. TRANSFERS: BED, CHAIR, WHEELCHAIR - STEP 2: Does the patient require the assistance of a helper? Yes. TRANSFERS: BED, CHAIR, WHEELCHAIR - STEP 3: How much assistance does the patient require from the helper? Lifting of the legs TRANSFERS: BED, CHAIR, WHEELCHAIR - STEP 4: How many legs does the patient require the helper to lift? one leg TRANSFERS: BED, CHAIR, WHEELCHAIR - SCORE: 4-MIN TRANSFERS: TOILET: TRANSFERS: TOILET - STEP 1: Does the patient require the assistance of a person or device, or need extra time with toilet transfe rs? Yes. TRANSFERS: TOILET - STEP 2: Does the patient require the assistance of a helper? Yes. TRANSFERS: TOILET - STEP 3: How much assistance does the patient require from the helper? Patient performs half or more of the tr ansferring tasks TRANSFERS: TOILET - STEP 4: Does the patient need only incidental help such as contact guard or steadying during toilet transfer? Yes. TRANSFERS: TOILET - SCORE: 4-MIN TRANSFERS: SHOWER: Activity did not occur on this shift TRANSFERS: SHOWER - SCORE: 0-UNK TRANSFERS: TUB: Activity did not occur on this shift TRANSFERS: TUB - SCORE: 0-UNK LOCOMOTION: WALK: Activity did not occur on this shift LOCOMOTION: WALK - SCORE: 0-UNK LOCOMOTION: WHEELCHAIR: Activity did not occur on this shift LOCOMOTION: WHEELCHAIR - SCORE: 0-UNK COMPREHENSION: COMPREHENSION: TYPE: Both COMPREHENSION - STEP 1: Does the patient require help from a person or device, or need extra time to understand complex and a bstract ideas (such as current events, finances, discharge planning, medical issues, relationships, e tc)? No. COMPREHENSION - STEP 2: Does the patient need extra time, require an assistive device (such as glasses for visual comprehensi on or a hearing aid for auditory comprehension) or does s/he have mild difficulty understanding compl ex and abstract information? Yes. COMPREHENSION - SCORE: 6-DEMETRI EXPRESSION EXPRESSION: TYPE: Both EXPRESSION - STEP 1: Does the patient require help from a person or device, or need extra time expressing complex and abst ract ideas (such as current events, finances, discharge planning, medical issues, relationships, etc) ? No. EXPRESSION - STEP 2: Does the patient need extra time, require an assistive device (such as augmentive communication syste m or a communication board), OR does s/he have mild difficulty expressing complex and abstract ideas (including mild dysarthria or mild word-find problems)? Yes. EXPRESSION - SCORE: 6-DEMETRI SOCIAL INTERACTION: SOCIAL INTERACTION - STEP 1: Does the patient require a helper to interact with others in social and therapeutic situations? No. SOCIAL INTERACTION - STEP 2: Does the patient need extra time in social situations, OR does s/he interact with staff, other patien ts, and family members ONLY in structured environments, OR does s/he require medication for social in teraction? Yes, patient needs extra time SOCIAL INTERACTION - SCORE: 6-DEMETRI PROBLEM SOLVING: PROBLEM SOLVING - STEP 1: Does the patient need help from a person or device, or need extra time to solve complex problems such as managing a checking account or confronting interpersonal problems? No. PROBLEM SOLVING - STEP 2: Does the patient require extra time to make decisions or solve problems, OR does s/he have slight dif ficulty reading, initiating, or self-correcting in unfamiliar situations? Yes, patient needs extra ti me. PROBLEM SOLVING - SCORE: 6-DEMETRI MEMORY: MEMORY - STEP 1: Does the patient need help from a person or device, or need extra time to remember frequently encount ered people, daily routines, and executing requests? No. MEMORY - STEP 2: Does the patient have slight difficulty recognizing frequently encountered people, daily routines, or executing requests without the need for repetition or using self-initiated or environmental cues to remember? Yes. MEMORY - SCORE: 6-DEMETRI SIGNATURE PANEL: The following modified sections: Eating - Score, Grooming - Score, Bathing - Score, Dressing - Upper Body - Score, Dressing - Lower Body - Score, Toileting - Score, Bladder Management - Score, Bowel Man agement - Score, Transfers: Bed, Chair, Wheelchair - Score, Transfers: Toilet - Score, Transfers: Maggi wer - Score, Transfers: Tub - Score, Locomotion: Walk - Score, Locomotion: Wheelchair - Score, Compre hension - Score, Expression - Score, Social Interaction - Score, Problem Solving - Score, Memory - Sc ore were [electronically] signed by Romeo Mcrae on FriJan 17 2019 10:54:22 T-0500 (Central Daylight Time)
--- NOTE | 2019-01-17 12:14 | P.PN ---
Subjective Date of Service: 01/17/19 Chief Complaint: SOME DYSPNEA, EDEMA. Subjective: Improving SHE IS STABLE,COMFORTABLE, HAS SOME DYSPNEA WITHOUT OXYGEN. CHR DJD. SHE LOVES HER CONCOCTION MADE FROM [facility] AND SHE WILL GET IT HERE. NO CHEST PAIN. Review of Systems 10-point ROS is otherwise unremarkable Cardiovascular: Edema Physical Examination - Vital Signs Temperature: 98.2 F Blood Pressure: 117/52 Pulse: 59 Respirations: 16 Pulse Ox (%): 97 - Physical Exam General: Alert, In no apparent distress HEENT: Atraumatic, PERRLA, EOMI Neck: Supple, JVD not distended Respiratory: Clear to auscultation bilaterally, Normal air movement Cardiovascular: Normal pulses, Edema Gastrointestinal: Normal bowel sounds, No tenderness Musculoskeletal: No tenderness Integumentary: No rashes Neurological: Normal speech, Normal tone, Normal affect Lymphatics: No axilla or inguinal lymphadenopathy - Studies Laboratory Data (last 24 hrs) 01/16/19 05:00: Sodium Cancelled, Potassium Cancelled, BUN Cancelled, Creatinine Cancelled, Glucose Cancelled 01/16/19 05:00: WBC Cancelled, Hgb Cancelled, Hct Cancelled, Plt Count Cancelled Medications List Reviewed: Yes Assessment And Plan - Current Problems (Diagnosis) (1) DJD (degenerative joint disease) Current Visit: Yes Status: Chronic Qualifiers: 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 STABLE FOR NOW. ORDER CT ANGIO AND VENOUS DOPPLER. SHE IS POST OP. SHE MAY NOT HAVE PE BUT AT RISK FOR NOW.
--- NOTE | 2019-01-17 12:58 | RAD REPORT ---
EXAM DESCRIPTION: CT - Chest For Pe Angio - 01/17/2019 12:41 pm CLINICAL HISTORY: Chest pain. HYPOXIA COMPARISON: No comparisons TECHNIQUE: CT angiogram of the pulmonary arteries was performed with MIP. All CT scans are performed using dose optimization technique as appropriate and may include automated exposure control or mA/KV adjustment according to patient size. FINDINGS: No evidence of pulmonary thromboembolism. No acute aortic finding demonstrated. Mild interstitial pulmonary edema is seen. Small bilateral pleural effusions, slightly greater on the left. No concerning bony finding. Cholecystectomy. IMPRESSION: No evidence of pulmonary thromboembolism. Mild CHF versus volume overload pattern.
--- NOTE | 2019-01-17 15:27 | RAD REPORT ---
EXAM DESCRIPTION: US - Extrem Venous W Compress Armond - 01/17/2019 3:21 pm CLINICAL HISTORY: EDEMA Bilateral leg edema and swelling. COMPARISON: No comparisons TECHNIQUE: Real-time sonographic interrogation of the left and right lower extremity deep venous sys tems was performed. FINDINGS: Normal compressibility, flow augmentation, phasic flow and spontaneous flow is identified in both the left and right lower extremity deep venous systems. IMPRESSION: No sonographic evidence of left or right lower extremity deep venous thrombosis.
[2019-01-17] MEDS ORDERED: TORSEMIDE 20 MG TAB PO ONE (15:47)
--- NOTE | 2019-01-18 02:48 | FAST ---
SHIFT START DATE/TIME: 01/17/2019 19:00 (CDT) SHIFT END DATE/TIME: 01/18/2019 07:00 (CDT) NAME CELSO MADISON DATE OF : 1935 DATE OF ADMISSION: 01/15/2019 16:46 (CDT) PHONE: AGE: 83 SSN# [id number] GENDER: Female ENCOUNTER PHYSICIAN: Dr. Raúl Llanes M.D. ADMISSION DIAGNOSIS: - Orthopaedic Disorders 08 - Unilateral Hip Fracture (08.11) RIGHT MINIMALLY DISPLACED FEMORAL NECK FRACTURE JUST BELOW THE HEAD. EATING: Activity did not occur on this shift EATING - SCORE: 0-UNK GROOMING: Activity did not occur on this shift GROOMING - SCORE: 0-UNK BATHING: Activity did not occur on this shift BATHING - SCORE: 0-UNK DRESSING - UPPER BODY: Activity did not occur on this shift ARTICLES SCORE Total number of steps: 0 DRESSING - UPPER BODY - SCORE: 0-UNK DRESSING - LOWER BODY: Elastic waist pants (three steps) Underwear (three steps) ARTICLES SCORE Total number of steps: 6 DRESSING - LOWER BODY - STEP 1: Does the patient require help from a person or device, or need extra time when dressing below the coni st? Yes. DRESSING - LOWER BODY - STEP 2: Does the patient require the assistance of a helper? Yes. DRESSING - LOWER BODY - STEP 3: Does the helper touch the patient while dressing? Yes. DRESSING - LOWER BODY - STEP 4: How many of the total steps does the patient complete on his/her own? 2 DRESSING - LOWER BODY - STEP 5: Does patient require total assistance for dressing below the waist such as the helper holding clothin g and performing basically all the activities? No. DRESSING - LOWER BODY - SCORE: 2-MAX TOILETING: TOILETING - STEP 1: Does the patient require the assistance of a person or device, or need extra time with toileting? Yes . TOILETING - STEP 2: Does the patient require the assistance of a helper? Yes. TOILETING - STEP 3: How much assistance does the patient require from the helper? Hands-on assistance from the helper TOILETING - STEP 4: Of the 3 tasks: 1) Adjusting clothing prior to use, 2) Cleansing of perineal area, 3) Adjusting clot alejandro after use; How many tasks does the patient perform WITHOUT assistance of the helper? Two tasks TOILETING - SCORE: 3-MOD BLADDER MANAGEMENT: BLADDER MANAGEMENT - STEP 1: Does the patient control the bladder completely and intentionally without equipment or devices or med ications, and is always continent? Yes. BLADDER MANAGEMENT - SCORE: 7-IND BLADDER MANAGEMENT - FREQUENCY OF ACCIDENTS: BLADDER MANAGEMENT(FA) - STEP 1: How many accidents has the patient had during the current shift? 0 BOWEL MANAGEMENT: Activity did not occur on this shift BOWEL MANAGEMENT - SCORE: 7-IND TRANSFERS: BED, CHAIR, WHEELCHAIR: TRANSFERS: BED, CHAIR, WHEELCHAIR - STEP 1: Does the patient require assistance of a person or device, or need extra time with bed, chair, or whe elchair transfers? Yes. TRANSFERS: BED, CHAIR, WHEELCHAIR - STEP 2: Does the patient require the assistance of a helper? Yes. TRANSFERS: BED, CHAIR, WHEELCHAIR - STEP 3: How much assistance does the patient require from the helper? Lifting of the legs TRANSFERS: BED, CHAIR, WHEELCHAIR - STEP 4: How many legs does the patient require the helper to lift? both legs TRANSFERS: BED, CHAIR, WHEELCHAIR - SCORE: 3-MOD TRANSFERS: TOILET: TRANSFERS: TOILET - STEP 1: Does the patient require the assistance of a person or device, or need extra time with toilet transfe rs? Yes. TRANSFERS: TOILET - STEP 2: Does the patient require the assistance of a helper? Yes. TRANSFERS: TOILET - STEP 3: How much assistance does the patient require from the helper? Patient performs half or more of the tr ansferring tasks TRANSFERS: TOILET - STEP 4: Does the patient need only incidental help such as contact guard or steadying during toilet transfer? No. Patient needs more than incidental help TRANSFERS: TOILET - SCORE: 3-MOD TRANSFERS: SHOWER: Activity did not occur on this shift TRANSFERS: SHOWER - SCORE: 0-UNK TRANSFERS: TUB: Activity did not occur on this shift TRANSFERS: TUB - SCORE: 0-UNK LOCOMOTION: WALK: Activity did not occur on this shift LOCOMOTION: WALK - SCORE: 0-UNK LOCOMOTION: WHEELCHAIR: LOCOMOTION: WHEELCHAIR - STEP 1: Does the patient need help to go 150 feet in a wheelchair? Yes. LOCOMOTION: WHEELCHAIR - STEP 2: How much assistance does the patient need from the helper? More than incidental help LOCOMOTION: WHEELCHAIR - SCORE: 3-MOD COMPREHENSION: COMPREHENSION: TYPE: Both COMPREHENSION - STEP 1: Does the patient require help from a person or device, or need extra time to understand complex and a bstract ideas (such as current events, finances, discharge planning, medical issues, relationships, e tc)? No. COMPREHENSION - STEP 2: Does the patient need extra time, require an assistive device (such as glasses for visual comprehensi on or a hearing aid for auditory comprehension) or does s/he have mild difficulty understanding compl ex and abstract information? Yes. COMPREHENSION - SCORE: 6-DEMETRI EXPRESSION EXPRESSION: TYPE: Both EXPRESSION - STEP 1: Does the patient require help from a person or device, or need extra time expressing complex and abst ract ideas (such as current events, finances, discharge planning, medical issues, relationships, etc) ? No. EXPRESSION - STEP 2: Does the patient need extra time, require an assistive device (such as augmentive communication syste m or a communication board), OR does s/he have mild difficulty expressing complex and abstract ideas (including mild dysarthria or mild word-find problems)? No. EXPRESSION - SCORE: 7-IND SOCIAL INTERACTION: SOCIAL INTERACTION - SCORE: 0-UNK PROBLEM SOLVING: PROBLEM SOLVING - STEP 1: Does the patient need help from a person or device, or need extra time to solve complex problems such as managing a checking account or confronting interpersonal problems? Yes. PROBLEM SOLVING - STEP 2: Does the patient solve basic routine problems half or more of the time? Yes. PROBLEM SOLVING - STEP 3: How often does the patient need help to solve basic routine problems? Less than 10% of the time PROBLEM SOLVING - SCORE: 5-SUP MEMORY: MEMORY - STEP 1: Does the patient need help from a person or device, or need extra time to remember frequently encount ered people, daily routines, and executing requests? No. MEMORY - STEP 2: Does the patient have slight difficulty recognizing frequently encountered people, daily routines, or executing requests without the need for repetition or using self-initiated or environmental cues to remember? No. MEMORY - SCORE: 7-IND SIGNATURE PANEL: The following modified sections: Eating - Score, Grooming - Score, Bathing - Score, Dressing - Upper Body - Score, Dressing - Lower Body - Score, Toileting - Score, Bladder Management - Score, Bowel Man agement - Score, Transfers: Bed, Chair, Wheelchair - Score, Transfers: Toilet - Score, Transfers: Maggi wer - Score, Transfers: Tub - Score, Locomotion: Walk - Score, Locomotion: Wheelchair - Score, Compre hension - Score, Expression - Score, Social Interaction - Score, Problem Solving - Score, Memory - Sc ore were [electronically] signed by Marty Craig on FriJan 18 2019 02:47:34 T-0500 ([facility] [place] [facility])
[2019-01-18] MEDS: LEVOTHYROXINE SOD 0.075 MG TAB PO SCH (05:30)
[2019-01-18] MEDS: RANITIDINE 150 MG TABLET PO SCH (05:30)
[2019-01-18 06:25] LABS: Absolute Lymphocytes (CBC) 1.6 K/uL (0.7-4.9); Basophils % 0.6 % (0-1.3); Hematocrit 33.3 % (36.0-45.0); Lymphocytes % 14.2 % (15.3-44.8); MPV 9.1 fL (7.6-11.3); RBC Red Blood Cell Count 3.59 M/uL (3.86-4.86)
[2019-01-18 06:33] LABS: BUN Blood Urea Nitrogen 12 mg/dL (7-18); Bicarbonate 32 mmol/L (21-32); Glucose Level 98 mg/dL (74-106); Potassium 4.4 mmol/L (3.5-5.1); Sodium Level 140 mmol/L (136-145)
[2019-01-18] MEDS: RIVAROXABAN 10 MG TABLET PO SCH (08:00)
[2019-01-18] MEDS: CRANBERRY FRUIT EXTRACT 200 MG CAP PO SCH ×2 (09:04→20:38)
[2019-01-18] MEDS: POTASSIUM CL SA 10 MEQ TAB PO SCH (09:05)
[2019-01-18] MEDS: MAGNESIUM OXIDE 400 MG TAB PO SCH ×2 (09:05→20:41)
[2019-01-18] MEDS: TRAMADOL HCL 50 MG TAB PO PRN ×3 (09:06→20:39)
[2019-01-18] MEDS: TORSEMIDE 20 MG TAB PO SCH (09:06)
[2019-01-18] MEDS: PROMOD 30 ML DOSE PO SCH ×2 (09:10→20:41)
[2019-01-18] MEDS: JUVEN PACKET PO SCH ×2 (09:10→20:41)
[2019-01-18 15:53] LABS: Urine Appearance CLEAR; Urine Bilirubin NEGATIVE (NEG); Urine Blood TRACE (NEG); Urine Color YELLOW; Urine Glucose NEGATIVE (NEG); Urine Protein NEGATIVE (NEG); Urine Specific Gravity <=1.005 (1.005-1.030); Urine Urobilinogen 0.2 mg/dL (0.2-1.0); Urine pH 6.5 (5.0-7.0)
--- NOTE | 2019-01-18 15:57 | FAST ---
ENCOUNTER DATE AND TIME: 01/18/2019 08:00 (CDT) NAME CELSO MADISON DATE OF : 1935 DATE OF ADMISSION: 01/15/2019 16:46 (CDT) PHONE: AGE: 83 SSN# [id number] GENDER: Female ENCOUNTER PHYSICIAN: Dr. Raúl Llanes M.D. ADMISSION DIAGNOSIS: - Orthopaedic Disorders 08 - Unilateral Hip Fracture (08.11) RIGHT MINIMALLY DISPLACED FEMORAL NECK FRACTURE JUST BELOW THE HEAD. EATING: Activity did not occur on this shift EATING - SCORE: 0-UNK GROOMING: Activity did not occur on this shift GROOMING - SCORE: 0-UNK BATHING: Activity did not occur on this shift BATHING - SCORE: 0-UNK DRESSING - UPPER BODY: Activity did not occur on this shift Patient is not dressing in public clothing ARTICLES SCORE Total number of steps: 0 DRESSING - UPPER BODY - SCORE: 0-UNK DRESSING - LOWER BODY: Activity did not occur on this shift Patient is not dressing in public clothing ARTICLES SCORE Total number of steps: 0 DRESSING - LOWER BODY - SCORE: 0-UNK TOILETING: Activity did not occur on this shift TOILETING - SCORE: 0-UNK BLADDER MANAGEMENT: Activity did not occur on this shift BLADDER MANAGEMENT - SCORE: 7-IND BOWEL MANAGEMENT: Activity did not occur on this shift BOWEL MANAGEMENT - SCORE: 7-IND TRANSFERS: BED, CHAIR, WHEELCHAIR: TRANSFERS: BED, CHAIR, WHEELCHAIR - STEP 1: Does the patient require assistance of a person or device, or need extra time with bed, chair, or whe elchair transfers? Yes. TRANSFERS: BED, CHAIR, WHEELCHAIR - STEP 2: Does the patient require the assistance of a helper? Yes. TRANSFERS: BED, CHAIR, WHEELCHAIR - STEP 3: How much assistance does the patient require from the helper? Lifting of the patient TRANSFERS: BED, CHAIR, WHEELCHAIR - STEP 4: Does the helper lift the patient ONLY up? ONLY down? Up AND Down? ONLY up. TRANSFERS: BED, CHAIR, WHEELCHAIR - SCORE: 3-MOD TRANSFERS: TOILET: Activity did not occur on this shift TRANSFERS: TOILET - SCORE: 0-UNK TRANSFERS: SHOWER: Activity did not occur on this shift TRANSFERS: SHOWER - SCORE: 0-UNK TRANSFERS: TUB: Activity did not occur on this shift TRANSFERS: TUB - SCORE: 0-UNK LOCOMOTION: WALK: Patient walks less than 50 feet LOCOMOTION: WALK - SCORE: 1-DEP LOCOMOTION: WHEELCHAIR: LOCOMOTION: WHEELCHAIR - STEP 1: Does the patient need help to go 150 feet in a wheelchair? Yes. LOCOMOTION: WHEELCHAIR - STEP 2: How much assistance does the patient need from the helper? Only supervision, cuing, or coaxing LOCOMOTION: WHEELCHAIR - SCORE: 5-SUP LOCOMOTION: STAIRS: Activity did not occur on this shift LOCOMOTION: STAIRS - SCORE: 0-UNK COMPREHENSION: COMPREHENSION - SCORE: 0-UNK EXPRESSION EXPRESSION - SCORE: 0-UNK SOCIAL INTERACTION: SOCIAL INTERACTION - SCORE: 0-UNK PROBLEM SOLVING: PROBLEM SOLVING - SCORE: 0-UNK MEMORY: MEMORY - SCORE: 0-UNK SIGNATURE PANEL: The following modified sections: Transfers: Bed, Chair, Wheelchair - Score, Transfers: Toilet - Score , Locomotion: Walk - Score, Locomotion: Wheelchair - Score, Locomotion: Stairs - Score were [electron chitra] signed by Chris Leonard PT on FriJan 18 2019 15:57:17 T-0500 (Central Daylight Time)
[2019-01-18 16:09] LABS: Urine Microscopic Reflex ORDER UMIC
[2019-01-18 16:11] LABS: Urine Bacteria <20 /HPF (<20); Urine Culture Reflex Order NOT NEEDED; Urine Mucus 1+ /HPF (NONE SEEN); Urine RBC <5 /HPF (NONE SEEN)
--- NOTE | 2019-01-18 19:16 | R.PN ---
ENCOUNTER DATE AND TIME: 01/18/2019 19:13 (CDT) NAME CELSO MADISON DATE OF : 1935 DATE OF ADMISSION: 01/15/2019 16:46 (CDT) RIGHT MINIMALLY DISPLACED FEMORAL NECK FRACTURE JUST BELOW THE HEADCHIEF COMPLAINT: Right hip fracture. SUBJECTIVE: Pt denied any Shortness of Breath. Pt denied any depression. Ambulated 15' with a rolling walker and touch down weight bearing. VITAL SIGNS Temperature: 98.6 F SBP/DBP: 123/61 Pulse: 67 Resp: 16 MEDICATION ALLERGIES: PENICILLIN ENVIRONMENTAL ALLERGIES: None Known - Substance Allergies None Known - Other Allergies None Known NURSING: - Shower allowing shower - Skin care per protocol PRECAUTIONS: - Posterior Hip Precaution No adduction across midline No external rotation No hip flexion >90 degrees No internal rotation No wheel chair propulsion - Weight Bearing Precaution TTWB right LE ACTIVITIES OOB only with supervision THERAPIES: - Dietary and Nutrition Adequate Nutrition. Nutritional Education. Nutritional Supplements. PHYSICAL EXAM - Gen Alert and awake Lying in bed No apparent distress Oriented to: person, time, and place - Skin No skin breakdown. Normacephalic - Eyes No abnormalities - ENMT No abnormalities - Neck No abnormalities - CVS RRR - Resp Clear to auscultation - Abd Soft - GI Non distended Deferred - No abnormalities - Ext Mild left lower extremity edema. - MSK 4+/5 weakness in right lower extremity - Neuro 4/5 strength right lower extremity. - Psych No abnormalities ASSESSMENT: Pt. is a 83 yo Right-handed white female.On 01/13/2019 she was admitted to [facility] with diagnosis RIGHT MINIMALLY DISPLACED FEMORAL NECK FRACTURE JUST BELOW THE HEAD.Her [facility] ent category is Orthopaedic Disorders 08 - Unilateral Hip Fracture (08.11).Pre-morbidly, Pt. was ind ependent/mod-I in Self-Care, Sphincter Control, Transfers Control, Locomotion, Communication, and Soc ial Cognition; and she had good Sphincter Control.Currently, she has deficits of Self-Care, Transfers Control, Locomotion, Endurance, Balance, and Safety Awareness.Pt. is now referred to [facility] for acute in-patient rehabilitation in order to maximize patient's functional inde pendence in activities of daily living, strength, ROM, and mobility.- Rehab Goal Patient has realistic goal of being discharged at assistance level 6-Amado to reside at Home with Fam tevin/Relatives. MDM/PLAN: - Physical Therapy Decreased range of motion - to improve, our physical therapists will perform initial evaluation of p t's status upon admission and devise an individualized program for increasing patient's Range of Adria on. Gait dysfunction - to improve, our physical therapists will perform initial evaluation of pt's statu s upon admission and devise an individualized program for Gait Training, and Wheel Chair mobility Inability to transfer - to improve, our physical therapists will perform initial evaluation of pt's status upon admission and devise an individualized program for Bed mobility Need for home safety evaluation - to improve, our physical therapists will perform initial evaluatio n of pt's status upon admission and devise an individualized program for Home Evaluation Need in caregiver upon discharge - to improve, our physical therapists will perform initial evaluati on of pt's status upon admission and devise an individualized program for Caregiver Training Edema - to improve, our physical therapists will perform initial evaluation of pt's status upon admis anne and devise an individualized program for Elevation Training, and Lymphedema Therapy New precaution - to improve, our physical therapists will perform initial evaluation of pt's status upon admission and devise an individualized program for Patient precaution education Poor balance - to improve, our physical therapists will perform initial evaluation of pt's status up on admission and devise an individualized program for Balance Training Poor endurance - to improve, our physical therapists will perform initial evaluation of pt's status upon admission and devise an individualized program for Endurance Training Weakness - to improve, our physical therapists will perform initial evaluation of pt's status upon a dmission and devise an individualized program for Aquatic Therapy, Neuromuscular Reeducation, and Str engthening Achieving independence - to improve, our physical therapists will perform initial evaluation of pt's status upon admission and devise an individualized program for Community Reintegration Activities - Occupational Therapy ADL deficits - to improve, our occupation therapists will perform initial evaluation of pt's status upon admission and devise an individualized program for Bathing, Bed mobility, Community Reintegratio n, Cooking, Dressing, Eating, Fine Motor Skills, Grooming, Homemaking, Kitchen Mobility, Laundry, Pat ient Education, Safety Awareness, Splinting - Positioning, Transfers(Toilet, Tub, Shower), and Wheel Chair Management Need for ocular care aide - to improve, our occupation therapists will perform initial evaluation of pt's status upon admission and devise an individualized program for Caregiver Training Weakness - to improve, our occupation therapists will perform initial evaluation of pt's status upon admission and devise an individualized program for Aquatic Therapy, Balance, Endurance, UE ROM, and UE strengthening - Other See attached MAR (Medication Administration Record) - Anterior Hip Precaution No abduction No active extension No adduction across midline No external rotation No hip flexion >90 degrees No internal rotation - Diet - Liquid Texture Continue Regular - Tube Feed Continue N/A - Diet Type Continue Regular - Posterior Hip Precaution No adduction across midline No external rotation No hip flexion >90 degrees No internal rotation No wheel chair propulsion - Weight Bearing Precaution TTWB right LE - Skin care per protocol - Diet - Solid Texture Continue Regular - Shower allowing shower FUNCTIONAL STATUS: UPDATED AT WEEKLY TEAM CONFERENCE - Bladder Same accident frequency: 7-Ind - No accidents in the past 7 days - Bowel Same accident frequency: 7-Ind - No accidents in the past 7 days - Walking Same score based on distance walked: 1(<=50ft) - Wheelchair Same score based on distance traveled: 0(N/A) FUNCTIONAL STATUS: - Self-Care A. Eating sup B. Grooming sup C. Bathing modA D. Dressing - Upper [place] E. Dressing - Lower maxA F. Toileting maxA - Sphincter Control G: Bladder control Ind H: Bowel control Ind - Transfers Control I. Bed/Chair/Wheelchair modA J. Toilet modA K. Tub/Shower ADNO - Locomotion L. Walk/Wheelchair (C) maxA L. Walk/Wheelchair (W) maxA M. Stairs ADNO - Communication N. Comprehension (B) Ind O. Expression (B) Ind - Social Cognition P. Social Interaction Ind Q. Problem Solving Ind R. Memory Ind - Endurance Fair - Balance Fair - Safety Awareness Fair CURRENT FUNC. DEFICITS: Self-Care, Transfers Control, Locomotion, Endurance, Balance, and Safety Awareness SIGNATURE PANEL: (CDT)
[2019-01-18] MEDS: CIPROFLOXACIN HCL 250 MG TAB PO SCH (20:40)
[2019-01-18] MEDS: GABAPENTIN 100 MG CAP PO SCH (20:40)
--- NOTE | 2019-01-18 21:08 | P.PN ---
Subjective Date of Service: 01/18/19 Chief Complaint: FEELS GOOD. Subjective: No new changes, No C/O voiced, Tolerating diet, Ambulating, Improving SHE IS STABLE,COMFORTABLE, HAS SOME DYSPNEA WITHOUT OXYGEN. CHR DJD. SHE LOVES HER CONCOCTION MADE FROM [employer] AND SHE WILL GET IT HERE. NO CHEST PAIN. Review of Systems 10-point ROS is otherwise unremarkable Physical Examination - Vital Signs Temperature: 98.2 F Blood Pressure: 132/61 Pulse: 74 Respirations: 16 Pulse Ox (%): 94 - Physical Exam General: Alert, In no apparent distress HEENT: Atraumatic, PERRLA, EOMI Neck: Supple, JVD not distended Respiratory: Clear to auscultation bilaterally, Normal air movement Cardiovascular: Regular rate/rhythm, Normal S1 S2 Gastrointestinal: Normal bowel sounds, No tenderness Musculoskeletal: No tenderness Integumentary: No rashes Neurological: Normal speech, Normal tone, Normal affect Lymphatics: No axilla or inguinal lymphadenopathy - Studies Laboratory Data (last 24 hrs) 01/18/19 06:06: Sodium 140, Potassium 4.4, BUN 12, Creatinine 0.60, Glucose 98 01/18/19 06:06: WBC 11.1 H, Hgb 11.4 L, Hct 33.3 L, Plt Count 249 D Microbiology Data (last 24 hrs): 01/16/19 03:15 Clean Catch Urine [place] Count - Final >100,000 CFU/ML. 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 STABLE FOR NOW. ORDER CT ANGIO AND VENOUS DOPPLER. SHE IS POST OP. SHE MAY NOT HAVE PE BUT AT RISK FOR NOW. (5) ESBL (extended spectrum beta-lactamase) producing bacteria infection Current Visit: Yes Status: Acute Plan: IT IS MOST LIKELY CONTAMINANT. FIRST UA WAS POSITIVE BUT WAS SO CALLED CLEAN CATCH. SECOND UA I ASKED FOR SPECICATH AND WAS TOTALLY NORMAL. 3RD UA WAS POSITIVE IN REHAB BUT WAS CLEAN CATCH THAT IS NOT USUALLY CLEAN IN WOMEN. I ASKED FOR SPECICATH AND THAT IS UA POSITIVE BUT SHE REALLY HAS NO SYMPTOMS EXCEPT WBC IS MILD HIGHER. THIS IS THE ONLY REASON I WILL TREAT UNTIL CULTURE COMES BACK. POSITIVE UA WITHOUT SYMPTOMS DOES NOT NEED TREATMENT.
--- NOTE | 2019-01-19 03:46 | FAST ---
SHIFT START DATE/TIME: 01/18/2019 19:00 (CDT) SHIFT END DATE/TIME: 01/19/2019 07:00 (CDT) NAME CELSO MADISON DATE OF : 1935 DATE OF ADMISSION: 01/15/2019 16:46 (CDT) PHONE: AGE: 83 SSN# [id number] GENDER: Female ENCOUNTER PHYSICIAN: Dr. Raúl Llanes M.D. ADMISSION DIAGNOSIS: - Orthopaedic Disorders 08 - Unilateral Hip Fracture (08.11) RIGHT MINIMALLY DISPLACED FEMORAL NECK FRACTURE JUST BELOW THE HEAD. EATING: Activity did not occur on this shift EATING - SCORE: 0-UNK GROOMING: Activity did not occur on this shift GROOMING - SCORE: 0-UNK BATHING: Activity did not occur on this shift BATHING - SCORE: 0-UNK DRESSING - UPPER BODY: Patient is not dressing in public clothing ARTICLES SCORE Total number of steps: 0 DRESSING - UPPER BODY - SCORE: 0-UNK DRESSING - LOWER BODY: Patient is not dressing in public clothing ARTICLES SCORE Total number of steps: 0 DRESSING - LOWER BODY - SCORE: 0-UNK TOILETING: TOILETING - STEP 1: Does the patient require the assistance of a person or device, or need extra time with toileting? Yes . TOILETING - STEP 2: Does the patient require the assistance of a helper? Yes. TOILETING - STEP 3: How much assistance does the patient require from the helper? Hands-on assistance from the helper TOILETING - STEP 4: Of the 3 tasks: 1) Adjusting clothing prior to use, 2) Cleansing of perineal area, 3) Adjusting clot alejandro after use; How many tasks does the patient perform WITHOUT assistance of the helper? No tasks; h elper performs all three tasks TOILETING - SCORE: 1-DEP BLADDER MANAGEMENT: [place] removes incontinent device (Depends, pull ups, etc.); cleans the patient after accident / inco ntinent episode; and, applies new incontinent device. BLADDER MANAGEMENT - SCORE: 1-DEP BLADDER MANAGEMENT - FREQUENCY OF ACCIDENTS: BLADDER MANAGEMENT(FA) - STEP 1: How many accidents has the patient had during the current shift? 1 BOWEL MANAGEMENT: BOWEL MANAGEMENT - STEP 1: Does the patient control bowels completely and intentionally without equipment devices or medications AND is always continent? No. BOWEL MANAGEMENT - STEP 2: Does the patient require the assistance of a helper? No, patient requires medication for control such as stool softeners, suppositories, laxatives, enemas, or OTC medications BOWEL MANAGEMENT - SCORE: 6-DEMETRI TRANSFERS: BED, CHAIR, WHEELCHAIR: TRANSFERS: BED, CHAIR, WHEELCHAIR - STEP 1: Does the patient require assistance of a person or device, or need extra time with bed, chair, or whe elchair transfers? Yes. TRANSFERS: BED, CHAIR, WHEELCHAIR - STEP 2: Does the patient require the assistance of a helper? Yes. TRANSFERS: BED, CHAIR, WHEELCHAIR - STEP 3: How much assistance does the patient require from the helper? Lifting of the legs TRANSFERS: BED, CHAIR, WHEELCHAIR - STEP 4: How many legs does the patient require the helper to lift? both legs TRANSFERS: BED, CHAIR, WHEELCHAIR - SCORE: 3-MOD TRANSFERS: TOILET: TRANSFERS: TOILET - STEP 1: Does the patient require the assistance of a person or device, or need extra time with toilet transfe rs? Yes. TRANSFERS: TOILET - STEP 2: Does the patient require the assistance of a helper? Yes. TRANSFERS: TOILET - STEP 3: How much assistance does the patient require from the helper? Patient performs half or more of the tr ansferring tasks TRANSFERS: TOILET - STEP 4: Does the patient need only incidental help such as contact guard or steadying during toilet transfer? Yes. TRANSFERS: TOILET - SCORE: 4-MIN TRANSFERS: SHOWER: Activity did not occur on this shift TRANSFERS: SHOWER - SCORE: 0-UNK TRANSFERS: TUB: Activity did not occur on this shift TRANSFERS: TUB - SCORE: 0-UNK LOCOMOTION: WALK: Activity did not occur on this shift LOCOMOTION: WALK - SCORE: 0-UNK LOCOMOTION: WHEELCHAIR: Activity did not occur on this shift LOCOMOTION: WHEELCHAIR - SCORE: 0-UNK COMPREHENSION: COMPREHENSION: TYPE: Both COMPREHENSION - STEP 1: Does the patient require help from a person or device, or need extra time to understand complex and a bstract ideas (such as current events, finances, discharge planning, medical issues, relationships, e tc)? No. COMPREHENSION - STEP 2: Does the patient need extra time, require an assistive device (such as glasses for visual comprehensi on or a hearing aid for auditory comprehension) or does s/he have mild difficulty understanding compl ex and abstract information? Yes. COMPREHENSION - SCORE: 6-DEMETRI EXPRESSION EXPRESSION: TYPE: Both EXPRESSION - STEP 1: Does the patient require help from a person or device, or need extra time expressing complex and abst ract ideas (such as current events, finances, discharge planning, medical issues, relationships, etc) ? No. EXPRESSION - STEP 2: Does the patient need extra time, require an assistive device (such as augmentive communication syste m or a communication board), OR does s/he have mild difficulty expressing complex and abstract ideas (including mild dysarthria or mild word-find problems)? No. EXPRESSION - SCORE: 7-IND SOCIAL INTERACTION: SOCIAL INTERACTION - STEP 1: Does the patient require a helper to interact with others in social and therapeutic situations? No. SOCIAL INTERACTION - STEP 2: Does the patient need extra time in social situations, OR does s/he interact with staff, other patien ts, and family members ONLY in structured environments, OR does s/he require medication for social in teraction? Yes, patient needs extra time SOCIAL INTERACTION - SCORE: 6-DEMETRI PROBLEM SOLVING: PROBLEM SOLVING - STEP 1: Does the patient need help from a person or device, or need extra time to solve complex problems such as managing a checking account or confronting interpersonal problems? Yes. PROBLEM SOLVING - STEP 2: Does the patient solve basic routine problems half or more of the time? Yes. PROBLEM SOLVING - STEP 3: How often does the patient need help to solve basic routine problems? Less than 10% of the time PROBLEM SOLVING - SCORE: 5-SUP MEMORY: MEMORY - STEP 1: Does the patient need help from a person or device, or need extra time to remember frequently encount ered people, daily routines, and executing requests? No. MEMORY - STEP 2: Does the patient have slight difficulty recognizing frequently encountered people, daily routines, or executing requests without the need for repetition or using self-initiated or environmental cues to remember? Yes. MEMORY - SCORE: 6-DEMETRI SIGNATURE PANEL: The following modified sections: Eating - Score, Grooming - Score, Dressing - Upper Body - Score, Malik ssing - Lower Body - Score, Toileting - Score, Bladder Management - Score, Bowel Management - Score, Transfers: Bed, Chair, Wheelchair - Score, Transfers: Toilet - Score, Transfers: Shower - Score, Yeung sfers: Tub - Score, Locomotion: Walk - Score, Locomotion: Wheelchair - Score, Comprehension - Score, Expression - Score, Social Interaction - Score, Problem Solving - Score, Memory - Score were [electro nically] signed by Janee Adan CNA on FriJan 19 2019 03:46:18 GMT-0500 (Central Daylight Time)
[2019-01-19] MEDS: RANITIDINE 150 MG TABLET PO SCH (07:40)
[2019-01-19] MEDS: LEVOTHYROXINE SOD 0.075 MG TAB PO SCH (07:40)
[2019-01-19] MEDS: MAGNESIUM OXIDE 400 MG TAB PO SCH ×2 (08:00→19:57)
[2019-01-19] MEDS: TRAMADOL HCL 50 MG TAB PO PRN ×4 (08:43→22:06)
[2019-01-19] MEDS: CRANBERRY FRUIT EXTRACT 200 MG CAP PO SCH ×2 (08:43→19:56)
[2019-01-19] MEDS: TORSEMIDE 20 MG TAB PO SCH (08:44)
[2019-01-19] MEDS: RIVAROXABAN 10 MG TABLET PO SCH (08:44)
[2019-01-19] MEDS: CIPROFLOXACIN HCL 250 MG TAB PO SCH ×2 (08:44→19:56)
[2019-01-19] MEDS: GABAPENTIN 100 MG CAP PO SCH (08:44)
[2019-01-19] MEDS: POTASSIUM CL SA 10 MEQ TAB PO SCH (08:45)
[2019-01-19] MEDS: PROMOD 30 ML DOSE PO SCH ×2 (08:46→19:57)
[2019-01-19] MEDS: JUVEN PACKET PO SCH ×2 (08:46→19:57)
[2019-01-19] MEDS ORDERED: HYDROCODONE/APAP 5/325 MG TAB PO PRN (13:43)
[2019-01-19] MEDS: GABAPENTIN 300 MG CAP PO SCH ×2 (14:00→19:57)
--- NOTE | 2019-01-19 15:39 | FAST ---
ENCOUNTER DATE AND TIME: 01/19/2019 08:00 (CDT) NAME CELSO MADISON DATE OF : 1935 DATE OF ADMISSION: 01/15/2019 16:46 (CDT) PHONE: AGE: 83 SSN# [id number] GENDER: Female ENCOUNTER PHYSICIAN: Dr. Raúl Llanes M.D. ADMISSION DIAGNOSIS: - Orthopaedic Disorders 08 - Unilateral Hip Fracture (08.11) RIGHT MINIMALLY DISPLACED FEMORAL NECK FRACTURE JUST BELOW THE HEAD. EATING: Activity did not occur on this shift EATING - SCORE: 0-UNK GROOMING: Activity did not occur on this shift GROOMING - SCORE: 0-UNK BATHING: Activity did not occur on this shift BATHING - SCORE: 0-UNK DRESSING - UPPER BODY: Activity did not occur on this shift Patient is not dressing in public clothing ARTICLES SCORE Total number of steps: 0 DRESSING - UPPER BODY - SCORE: 0-UNK DRESSING - LOWER BODY: Activity did not occur on this shift Patient is not dressing in public clothing ARTICLES SCORE Total number of steps: 0 DRESSING - LOWER BODY - SCORE: 0-UNK TOILETING: Activity did not occur on this shift TOILETING - SCORE: 0-UNK BLADDER MANAGEMENT: Activity did not occur on this shift BLADDER MANAGEMENT - SCORE: 7-IND BOWEL MANAGEMENT: Activity did not occur on this shift BOWEL MANAGEMENT - SCORE: 7-IND TRANSFERS: BED, CHAIR, WHEELCHAIR: TRANSFERS: BED, CHAIR, WHEELCHAIR - STEP 1: Does the patient require assistance of a person or device, or need extra time with bed, chair, or whe elchair transfers? Yes. TRANSFERS: BED, CHAIR, WHEELCHAIR - STEP 2: Does the patient require the assistance of a helper? Yes. TRANSFERS: BED, CHAIR, WHEELCHAIR - STEP 3: How much assistance does the patient require from the helper? Lifting of the patient TRANSFERS: BED, CHAIR, WHEELCHAIR - STEP 4: Does the helper lift the patient ONLY up? ONLY down? Up AND Down? ONLY up. TRANSFERS: BED, CHAIR, WHEELCHAIR - SCORE: 3-MOD TRANSFERS: TOILET: Activity did not occur on this shift TRANSFERS: TOILET - SCORE: 0-UNK TRANSFERS: SHOWER: Activity did not occur on this shift TRANSFERS: SHOWER - SCORE: 0-UNK TRANSFERS: TUB: Activity did not occur on this shift TRANSFERS: TUB - SCORE: 0-UNK LOCOMOTION: WALK: Patient walks less than 50 feet LOCOMOTION: WALK - SCORE: 1-DEP LOCOMOTION: WHEELCHAIR: LOCOMOTION: WHEELCHAIR - STEP 1: Does the patient need help to go 150 feet in a wheelchair? Yes. LOCOMOTION: WHEELCHAIR - STEP 2: How much assistance does the patient need from the helper? Only supervision, cuing, or coaxing LOCOMOTION: WHEELCHAIR - SCORE: 5-SUP LOCOMOTION: STAIRS: Activity did not occur on this shift LOCOMOTION: STAIRS - SCORE: 0-UNK COMPREHENSION: COMPREHENSION - SCORE: 0-UNK EXPRESSION EXPRESSION - SCORE: 0-UNK SOCIAL INTERACTION: SOCIAL INTERACTION - SCORE: 0-UNK PROBLEM SOLVING: PROBLEM SOLVING - SCORE: 0-UNK MEMORY: MEMORY - SCORE: 0-UNK SIGNATURE PANEL: The following modified sections: Transfers: Bed, Chair, Wheelchair - Score, Transfers: Toilet - Score , Locomotion: Walk - Score, Locomotion: Wheelchair - Score, Locomotion: Stairs - Score were [anderson buenrostro] signed by Chris Leonard PT on FriJan 19 2019 15:37:25 T-0500 (Central Daylight Time)
--- NOTE | 2019-01-19 17:05 | P.PN ---
Subjective Date of Service: 01/19/19 Chief Complaint: FEELS GOOD. Subjective: Improving SHE IS STABLE,COMFORTABLE, HAS SOME DYSPNEA WITHOUT OXYGEN. CHR DJD. SHE LOVES HER CONCOCTION MADE FROM [facility] [employer] AND SHE WILL GET IT HERE. NO CHEST PAIN. TODAY SHE IS FEELING A LOT BETTER. URINARY FREQUENCEY IS LESSER. Review of Systems 10-point ROS is otherwise unremarkable Physical Examination - Vital Signs Temperature: 97.9 F Blood Pressure: 116/52 Pulse: 69 Respirations: 16 Pulse Ox (%): 94 - Physical Exam General: Alert, In no apparent distress HEENT: Atraumatic, PERRLA, EOMI Neck: Supple, JVD not distended Respiratory: Clear to auscultation bilaterally, Normal air movement Cardiovascular: Regular rate/rhythm, Normal S1 S2 Gastrointestinal: Normal bowel sounds, No tenderness Musculoskeletal: No tenderness Integumentary: No rashes Neurological: Normal speech, Normal tone, Normal affect Lymphatics: No axilla or inguinal lymphadenopathy - Studies Medications List Reviewed: Yes Assessment And Plan - Current Problems (Diagnosis) (1) DJD (degenerative joint disease) Current Visit: Yes Status: Chronic Qualifiers: 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 STABLE FOR NOW. ORDER CT ANGIO AND VENOUS DOPPLER. SHE IS POST OP. SHE MAY NOT HAVE PE BUT AT RISK FOR NOW. (5) ESBL (extended spectrum beta-lactamase) producing bacteria infection Current Visit: Yes Status: Acute Plan: IT IS MOST LIKELY CONTAMINANT. FIRST UA WAS POSITIVE BUT WAS SO CALLED CLEAN CATCH. SECOND UA I ASKED FOR SPECICATH AND WAS TOTALLY NORMAL. 3RD UA WAS POSITIVE IN REHAB BUT WAS CLEAN CATCH THAT IS NOT USUALLY CLEAN IN WOMEN. I ASKED FOR SPECICATH AND THAT IS UA POSITIVE BUT SHE REALLY HAS NO SYMPTOMS EXCEPT WBC IS MILD HIGHER. THIS IS THE ONLY REASON I WILL TREAT UNTIL CULTURE COMES BACK. POSITIVE UA WITHOUT SYMPTOMS DOES NOT NEED TREATMENT. SHE IS BETTER ON CIPRO. TO CONTINUE FOR A WEEK.
--- NOTE | 2019-01-20 00:37 | FAST ---
SHIFT START DATE/TIME: 01/19/2019 19:00 (CDT) SHIFT END DATE/TIME: 01/20/2019 07:00 (CDT) NAME CELSO MADISON DATE OF : 1935 DATE OF ADMISSION: 01/15/2019 16:46 (CDT) PHONE: AGE: 83 SSN# [id number] GENDER: Female ENCOUNTER PHYSICIAN: Dr. Raúl Llanes M.D. ADMISSION DIAGNOSIS: - Orthopaedic Disorders 08 - Unilateral Hip Fracture (08.11) RIGHT MINIMALLY DISPLACED FEMORAL NECK FRACTURE JUST BELOW THE HEAD. EATING: Activity did not occur on this shift EATING - SCORE: 0-UNK GROOMING: Wash, rinse, and dry hands GROOMING - STEP 1: Does the patient require the assistance of a person or device, or need extra time when grooming? Yes. GROOMING - STEP 2: Does the patient require the assistance of a helper? No. The patient only requires an assistive devic e, OR takes more than reasonable time to groom, OR there is a concern for safety as the patient groom s GROOMING - SCORE: 6-DEMETRI BATHING: Activity did not occur on this shift BATHING - SCORE: 0-UNK DRESSING - UPPER BODY: Patient is not dressing in public clothing ARTICLES SCORE Total number of steps: 0 DRESSING - UPPER BODY - SCORE: 0-UNK DRESSING - LOWER BODY: Patient is not dressing in public clothing ARTICLES SCORE Total number of steps: 0 DRESSING - LOWER BODY - SCORE: 0-UNK TOILETING: TOILETING - STEP 1: Does the patient require the assistance of a person or device, or need extra time with toileting? Yes . TOILETING - STEP 2: Does the patient require the assistance of a helper? Yes. TOILETING - STEP 3: How much assistance does the patient require from the helper? Hands-on assistance from the helper TOILETING - STEP 4: Of the 3 tasks: 1) Adjusting clothing prior to use, 2) Cleansing of perineal area, 3) Adjusting clot alejandro after use; How many tasks does the patient perform WITHOUT assistance of the helper? One task TOILETING - SCORE: 2-MAX BLADDER MANAGEMENT: BLADDER MANAGEMENT - STEP 1: Does the patient control the bladder completely and intentionally without equipment or devices or med ications, and is always continent? No. BLADDER MANAGEMENT - STEP 2: Does the patient require the assistance of a helper? Yes. BLADDER MANAGEMENT - STEP 3: How much assistance does the patient require from the helper? Only set-up of equipment - such as plac ing it within reach of the patient or emptying a device - to maintain either satisfactory voiding pat tern or managing an external device, such as an absorbent pad, ileal device, or catheter BLADDER MANAGEMENT - SCORE: 5-SUP BOWEL MANAGEMENT: BOWEL MANAGEMENT - STEP 1: Does the patient control bowels completely and intentionally without equipment devices or medications AND is always continent? No. BOWEL MANAGEMENT - STEP 2: Does the patient require the assistance of a helper? No, patient requires medication for control such as stool softeners, suppositories, laxatives, enemas, or OTC medications BOWEL MANAGEMENT - SCORE: 6-DEMETRI TRANSFERS: BED, CHAIR, WHEELCHAIR: TRANSFERS: BED, CHAIR, WHEELCHAIR - STEP 1: Does the patient require assistance of a person or device, or need extra time with bed, chair, or whe elchair transfers? Yes. TRANSFERS: BED, CHAIR, WHEELCHAIR - STEP 2: Does the patient require the assistance of a helper? Yes. TRANSFERS: BED, CHAIR, WHEELCHAIR - STEP 3: How much assistance does the patient require from the helper? Lifting of the legs TRANSFERS: BED, CHAIR, WHEELCHAIR - STEP 4: How many legs does the patient require the helper to lift? both legs TRANSFERS: BED, CHAIR, WHEELCHAIR - SCORE: 3-MOD TRANSFERS: TOILET: TRANSFERS: TOILET - STEP 1: Does the patient require the assistance of a person or device, or need extra time with toilet transfe rs? Yes. TRANSFERS: TOILET - STEP 2: Does the patient require the assistance of a helper? Yes. TRANSFERS: TOILET - STEP 3: How much assistance does the patient require from the helper? Only supervision, cuing, coaxing, OR he lp to set out transfer equipment or to lock brakes and/or lift foot rests TRANSFERS: TOILET - SCORE: 5-SUP TRANSFERS: SHOWER: Activity did not occur on this shift TRANSFERS: SHOWER - SCORE: 0-UNK TRANSFERS: TUB: Activity did not occur on this shift TRANSFERS: TUB - SCORE: 0-UNK LOCOMOTION: WALK: Activity did not occur on this shift LOCOMOTION: WALK - SCORE: 0-UNK LOCOMOTION: WHEELCHAIR: Activity did not occur on this shift LOCOMOTION: WHEELCHAIR - SCORE: 0-UNK COMPREHENSION: COMPREHENSION: TYPE: Both COMPREHENSION - STEP 1: Does the patient require help from a person or device, or need extra time to understand complex and a bstract ideas (such as current events, finances, discharge planning, medical issues, relationships, e tc)? No. COMPREHENSION - STEP 2: Does the patient need extra time, require an assistive device (such as glasses for visual comprehensi on or a hearing aid for auditory comprehension) or does s/he have mild difficulty understanding compl ex and abstract information? Yes. COMPREHENSION - SCORE: 6-DEMETRI EXPRESSION EXPRESSION: TYPE: Both EXPRESSION - STEP 1: Does the patient require help from a person or device, or need extra time expressing complex and abst ract ideas (such as current events, finances, discharge planning, medical issues, relationships, etc) ? No. EXPRESSION - STEP 2: Does the patient need extra time, require an assistive device (such as augmentive communication syste m or a communication board), OR does s/he have mild difficulty expressing complex and abstract ideas (including mild dysarthria or mild word-find problems)? Yes. EXPRESSION - SCORE: 6-DEMETRI SOCIAL INTERACTION: SOCIAL INTERACTION - STEP 1: Does the patient require a helper to interact with others in social and therapeutic situations? No. SOCIAL INTERACTION - STEP 2: Does the patient need extra time in social situations, OR does s/he interact with staff, other patien ts, and family members ONLY in structured environments, OR does s/he require medication for social in teraction? Yes, patient needs extra time SOCIAL INTERACTION - SCORE: 6-DEMETRI PROBLEM SOLVING: PROBLEM SOLVING - STEP 1: Does the patient need help from a person or device, or need extra time to solve complex problems such as managing a checking account or confronting interpersonal problems? Yes. PROBLEM SOLVING - STEP 2: Does the patient solve basic routine problems half or more of the time? Yes. PROBLEM SOLVING - STEP 3: How often does the patient need help to solve basic routine problems? Less than 10% of the time PROBLEM SOLVING - SCORE: 5-SUP MEMORY: MEMORY - STEP 1: Does the patient need help from a person or device, or need extra time to remember frequently encount ered people, daily routines, and executing requests? No. MEMORY - STEP 2: Does the patient have slight difficulty recognizing frequently encountered people, daily routines, or executing requests without the need for repetition or using self-initiated or environmental cues to remember? Yes. MEMORY - SCORE: 6-DEMETRI SIGNATURE PANEL: The following modified sections: Eating - Score, Grooming - Score, Dressing - Upper Body - Score, Malik ssing - Lower Body - Score, Toileting - Score, Bladder Management - Score, Bowel Management - Score, Transfers: Bed, Chair, Wheelchair - Score, Transfers: Toilet - Score, Transfers: Shower - Score, Yeung sfers: Tub - Score, Locomotion: Walk - Score, Locomotion: Wheelchair - Score, Comprehension - Score, Expression - Score, Social Interaction - Score, Problem Solving - Score, Memory - Score were [electro nically] signed by Janee Adan CNA on FriJan 20 2019 00:35:41 GMT-0500 (Central Daylight Time)
[2019-01-20 06:43] LABS: Absolute Lymphocytes (CBC) 2.2 K/uL (0.7-4.9); Basophils % 0.7 % (0-1.3); Hematocrit 33.9 % (36.0-45.0); Lymphocytes % 29.4 % (15.3-44.8); RBC Red Blood Cell Count 3.67 M/uL (3.86-4.86)
[2019-01-20] MEDS: RANITIDINE 150 MG TABLET PO SCH (06:52)
[2019-01-20] MEDS: LEVOTHYROXINE SOD 0.075 MG TAB PO SCH (06:52)
[2019-01-20] MEDS: TRAMADOL HCL 50 MG TAB PO PRN ×3 (07:00→20:00)
[2019-01-20 07:03] LABS: BUN Blood Urea Nitrogen 21 mg/dL (7-18); Bicarbonate 32 mmol/L (21-32); Glucose Level 89 mg/dL (74-106); Potassium 3.9 mmol/L (3.5-5.1); Sodium Level 137 mmol/L (136-145)
[2019-01-20 07:07] LABS: Albumin 2.6 g/dL (3.4-5.0); Magnesium 2.3 mg/dL (1.8-2.4); Prealbumin 11.3 mg/dL (20-40)
[2019-01-20] MEDS: TORSEMIDE 20 MG TAB PO SCH (08:21)
[2019-01-20] MEDS: CRANBERRY FRUIT EXTRACT 200 MG CAP PO SCH ×2 (08:21→19:59)
[2019-01-20] MEDS: GABAPENTIN 300 MG CAP PO SCH ×2 (08:22→20:02)
[2019-01-20] MEDS: CIPROFLOXACIN HCL 250 MG TAB PO SCH ×2 (08:22→20:02)
[2019-01-20] MEDS: MAGNESIUM OXIDE 400 MG TAB PO SCH ×2 (08:22→20:00)
[2019-01-20] MEDS: POTASSIUM CL SA 10 MEQ TAB PO SCH (08:22)
[2019-01-20] MEDS: RIVAROXABAN 10 MG TABLET PO SCH (08:23)
[2019-01-20] MEDS: PROMOD 30 ML DOSE PO SCH ×3 (08:24→20:07)
[2019-01-20] MEDS: JUVEN PACKET PO SCH ×2 (08:24→20:08)
--- NOTE | 2019-01-20 13:20 | FAST ---
SHIFT START DATE/TIME: 01/20/2019 07:00 (CDT) SHIFT END DATE/TIME: 01/20/2019 19:00 (CDT) NAME CELSO MADISON DATE OF : 1935 DATE OF ADMISSION: 01/15/2019 16:46 (CDT) PHONE: AGE: 83 SSN# [id number] GENDER: Female ENCOUNTER PHYSICIAN: Dr. Raúl Llanes M.D. ADMISSION DIAGNOSIS: - Orthopaedic Disorders 08 - Unilateral Hip Fracture (08.11) RIGHT MINIMALLY DISPLACED FEMORAL NECK FRACTURE JUST BELOW THE HEAD. EATING: EATING - STEP 1: Does the patient require the assistance of a person or device, or need extra time when eating? Yes. EATING - STEP 2: Does the patient require the assistance of a helper? No, patient only requires an assistive device, O R s/he takes more than reasonable time to eat, OR there is a safety concern, OR s/he requires modifie d food consistency EATING - SCORE: 6-DEMETRI GROOMING: Comb/brush hair Oral care Wash, rinse, and dry face Wash, rinse, and dry hands GROOMING - STEP 1: Does the patient require the assistance of a person or device, or need extra time when grooming? Yes. GROOMING - STEP 2: Does the patient require the assistance of a helper? No. The patient only requires an assistive devic e, OR takes more than reasonable time to groom, OR there is a concern for safety as the patient groom s GROOMING - SCORE: 6-DEMETRI BATHING: Activity did not occur on this shift BATHING - SCORE: 0-UNK DRESSING - UPPER BODY: Activity did not occur on this shift ARTICLES SCORE Total number of steps: 0 DRESSING - UPPER BODY - SCORE: 0-UNK DRESSING - LOWER BODY: Activity did not occur on this shift ARTICLES SCORE Total number of steps: 0 DRESSING - LOWER BODY - SCORE: 0-UNK TOILETING: TOILETING - STEP 1: Does the patient require the assistance of a person or device, or need extra time with toileting? Yes . TOILETING - STEP 2: Does the patient require the assistance of a helper? Yes. TOILETING - STEP 3: How much assistance does the patient require from the helper? Hands-on assistance from the helper TOILETING - STEP 4: Of the 3 tasks: 1) Adjusting clothing prior to use, 2) Cleansing of perineal area, 3) Adjusting clot alejandro after use; How many tasks does the patient perform WITHOUT assistance of the helper? Three tasks with steadying assistance from the helper TOILETING - SCORE: 4-MIN BLADDER MANAGEMENT: BLADDER MANAGEMENT - STEP 1: Does the patient control the bladder completely and intentionally without equipment or devices or med ications, and is always continent? No. BLADDER MANAGEMENT - STEP 2: Does the patient require the assistance of a helper? No, patient requires and independently uses an a ssistive device, such as a urinal, bedpan, bedside commode, catheter, absorbent pad, or collecting de vice BLADDER MANAGEMENT - SCORE: 6-DEMETRI BOWEL MANAGEMENT: BOWEL MANAGEMENT - STEP 1: Does the patient control bowels completely and intentionally without equipment devices or medications AND is always continent? No. BOWEL MANAGEMENT - STEP 2: Does the patient require the assistance of a helper? No, patient requires and manages independently a n assistive device such as a bedpan, bedside commode, absorbent pad, incontinent device, or collectin g device BOWEL MANAGEMENT - SCORE: 6-DEMETRI TRANSFERS: BED, CHAIR, WHEELCHAIR: TRANSFERS: BED, CHAIR, WHEELCHAIR - STEP 1: Does the patient require assistance of a person or device, or need extra time with bed, chair, or whe elchair transfers? Yes. TRANSFERS: BED, CHAIR, WHEELCHAIR - STEP 2: Does the patient require the assistance of a helper? Yes. TRANSFERS: BED, CHAIR, WHEELCHAIR - STEP 3: How much assistance does the patient require from the helper? Steadying/guiding assistance TRANSFERS: BED, CHAIR, WHEELCHAIR - SCORE: 4-MIN TRANSFERS: TOILET: TRANSFERS: TOILET - STEP 1: Does the patient require the assistance of a person or device, or need extra time with toilet transfe rs? Yes. TRANSFERS: TOILET - STEP 2: Does the patient require the assistance of a helper? Yes. TRANSFERS: TOILET - STEP 3: How much assistance does the patient require from the helper? Patient performs half or more of the tr ansferring tasks TRANSFERS: TOILET - STEP 4: Does the patient need only incidental help such as contact guard or steadying during toilet transfer? No. Patient needs more than incidental help TRANSFERS: TOILET - SCORE: 3-MOD TRANSFERS: SHOWER: Activity did not occur on this shift TRANSFERS: SHOWER - SCORE: 0-UNK TRANSFERS: TUB: Activity did not occur on this shift TRANSFERS: TUB - SCORE: 0-UNK LOCOMOTION: WALK: Activity did not occur on this shift LOCOMOTION: WALK - SCORE: 0-UNK LOCOMOTION: WHEELCHAIR: Activity did not occur on this shift LOCOMOTION: WHEELCHAIR - SCORE: 0-UNK COMPREHENSION: COMPREHENSION: TYPE: Both COMPREHENSION - STEP 1: Does the patient require help from a person or device, or need extra time to understand complex and a bstract ideas (such as current events, finances, discharge planning, medical issues, relationships, e tc)? No. COMPREHENSION - STEP 2: Does the patient need extra time, require an assistive device (such as glasses for visual comprehensi on or a hearing aid for auditory comprehension) or does s/he have mild difficulty understanding compl ex and abstract information? Yes. COMPREHENSION - SCORE: 6-DEMETRI EXPRESSION EXPRESSION: TYPE: Both EXPRESSION - STEP 1: Does the patient require help from a person or device, or need extra time expressing complex and abst ract ideas (such as current events, finances, discharge planning, medical issues, relationships, etc) ? No. EXPRESSION - STEP 2: Does the patient need extra time, require an assistive device (such as augmentive communication syste m or a communication board), OR does s/he have mild difficulty expressing complex and abstract ideas (including mild dysarthria or mild word-find problems)? Yes. EXPRESSION - SCORE: 6-DEMETRI SOCIAL INTERACTION: SOCIAL INTERACTION - STEP 1: Does the patient require a helper to interact with others in social and therapeutic situations? No. SOCIAL INTERACTION - STEP 2: Does the patient need extra time in social situations, OR does s/he interact with staff, other patien ts, and family members ONLY in structured environments, OR does s/he require medication for social in teraction? Yes, patient needs extra time SOCIAL INTERACTION - SCORE: 6-DEMETRI PROBLEM SOLVING: PROBLEM SOLVING - STEP 1: Does the patient need help from a person or device, or need extra time to solve complex problems such as managing a checking account or confronting interpersonal problems? No. PROBLEM SOLVING - STEP 2: Does the patient require extra time to make decisions or solve problems, OR does s/he have slight dif ficulty reading, initiating, or self-correcting in unfamiliar situations? Yes, patient needs extra ti me. PROBLEM SOLVING - SCORE: 6-DEMETRI MEMORY: MEMORY - STEP 1: Does the patient need help from a person or device, or need extra time to remember frequently encount ered people, daily routines, and executing requests? No. MEMORY - STEP 2: Does the patient have slight difficulty recognizing frequently encountered people, daily routines, or executing requests without the need for repetition or using self-initiated or environmental cues to remember? Yes. MEMORY - SCORE: 6-DEMETRI SIGNATURE PANEL: The following modified sections: Eating - Score, Grooming - Score, Bathing - Score, Dressing - Upper Body - Score, Dressing - Lower Body - Score, Toileting - Score, Bladder Management - Score, Bowel Man agement - Score, Transfers: Bed, Chair, Wheelchair - Score, Transfers: Toilet - Score, Transfers: Maggi wer - Score, Transfers: Tub - Score, Locomotion: Walk - Score, Locomotion: Wheelchair - Score, Compre hension - Score, Expression - Score, Social Interaction - Score, Problem Solving - Score, Memory - Sc ore were [electronically] signed by Romeo Mcrae on FriJan 20 2019 13:19:18 GMT-0500 (Central Daylight Time)
--- NOTE | 2019-01-20 15:26 | FAST ---
ENCOUNTER DATE AND TIME: 01/20/2019 08:00 (CDT) NAME CELSO MADISON DATE OF : 1935 DATE OF ADMISSION: 01/15/2019 16:46 (CDT) PHONE: AGE: 83 SSN# [id number] GENDER: Female ENCOUNTER PHYSICIAN: Dr. Raúl Llanes M.D. ADMISSION DIAGNOSIS: - Orthopaedic Disorders 08 - Unilateral Hip Fracture (08.11) RIGHT MINIMALLY DISPLACED FEMORAL NECK FRACTURE JUST BELOW THE HEAD. EATING: Activity did not occur on this shift EATING - SCORE: 0-UNK GROOMING: Activity did not occur on this shift GROOMING - SCORE: 0-UNK BATHING: Activity did not occur on this shift BATHING - SCORE: 0-UNK DRESSING - UPPER BODY: Activity did not occur on this shift Patient is not dressing in public clothing ARTICLES SCORE Total number of steps: 0 DRESSING - UPPER BODY - SCORE: 0-UNK DRESSING - LOWER BODY: Activity did not occur on this shift Patient is not dressing in public clothing ARTICLES SCORE Total number of steps: 0 DRESSING - LOWER BODY - SCORE: 0-UNK TOILETING: Activity did not occur on this shift TOILETING - SCORE: 0-UNK BLADDER MANAGEMENT: Activity did not occur on this shift BLADDER MANAGEMENT - SCORE: 7-IND BOWEL MANAGEMENT: Activity did not occur on this shift BOWEL MANAGEMENT - SCORE: 7-IND TRANSFERS: BED, CHAIR, WHEELCHAIR: TRANSFERS: BED, CHAIR, WHEELCHAIR - STEP 1: Does the patient require assistance of a person or device, or need extra time with bed, chair, or whe elchair transfers? Yes. TRANSFERS: BED, CHAIR, WHEELCHAIR - STEP 2: Does the patient require the assistance of a helper? Yes. TRANSFERS: BED, CHAIR, WHEELCHAIR - STEP 3: How much assistance does the patient require from the helper? Lifting of the patient TRANSFERS: BED, CHAIR, WHEELCHAIR - STEP 4: Does the helper lift the patient ONLY up? ONLY down? Up AND Down? ONLY up. TRANSFERS: BED, CHAIR, WHEELCHAIR - SCORE: 3-MOD TRANSFERS: TOILET: Activity did not occur on this shift TRANSFERS: TOILET - SCORE: 0-UNK TRANSFERS: SHOWER: Activity did not occur on this shift TRANSFERS: SHOWER - SCORE: 0-UNK TRANSFERS: TUB: Activity did not occur on this shift TRANSFERS: TUB - SCORE: 0-UNK LOCOMOTION: WALK: Activity did not occur on this shift LOCOMOTION: WALK - SCORE: 0-UNK LOCOMOTION: WHEELCHAIR: LOCOMOTION: WHEELCHAIR - STEP 1: Does the patient need help to go 150 feet in a wheelchair? Yes. LOCOMOTION: WHEELCHAIR - STEP 2: How much assistance does the patient need from the helper? Only supervision, cuing, or coaxing LOCOMOTION: WHEELCHAIR - SCORE: 5-SUP LOCOMOTION: STAIRS: Activity did not occur on this shift LOCOMOTION: STAIRS - SCORE: 0-UNK COMPREHENSION: COMPREHENSION - SCORE: 0-UNK EXPRESSION EXPRESSION - SCORE: 0-UNK SOCIAL INTERACTION: SOCIAL INTERACTION - SCORE: 0-UNK PROBLEM SOLVING: PROBLEM SOLVING - SCORE: 0-UNK MEMORY: MEMORY - SCORE: 0-UNK SIGNATURE PANEL: The following modified sections: Transfers: Bed, Chair, Wheelchair - Score, Transfers: Toilet - Score , Locomotion: Walk - Score, Locomotion: Wheelchair - Score, Locomotion: Stairs - Score were [electron chitra] signed by Chris Leonard PT on FriJan 20 2019 15:25:30 T-0500 (Central Daylight Time)
--- NOTE | 2019-01-20 21:24 | P.PN ---
Subjective Date of Service: 01/20/19 Chief Complaint: FEELS GOOD. Subjective: Improving SHE IS STABLE,COMFORTABLE, HAS SOME DYSPNEA WITHOUT OXYGEN. CHR DJD. SHE LOVES HER CONCOCTION MADE FROM [employer] AND SHE WILL GET IT HERE. NO CHEST PAIN. TODAY SHE IS FEELING A LOT BETTER. URINARY FREQUENCEY IS LESSER. SOME DIZZINESS FROM ABX. Physical Examination - Vital Signs Temperature: 97.4 F Blood Pressure: 120/54 Pulse: 60 Respirations: 18 Pulse Ox (%): 96 - Studies Laboratory Data (last 24 hrs) 01/20/19 06:20: Magnesium 2.3 01/20/19 06:20: Sodium 137, Potassium 3.9, BUN 21 H, Creatinine 0.60, Glucose 89 01/20/19 06:20: WBC 7.4 D, Hgb 11.6 L, Hct 33.9 L, Plt Count 288 Microbiology Data (last 24 hrs): 01/18/19 14:30 Catheterized Urine [place] Count - Final >100,000 CFU/ML. 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 STABLE FOR NOW. ORDER CT ANGIO AND VENOUS DOPPLER. SHE IS POST OP. SHE MAY NOT HAVE PE BUT AT RISK FOR NOW. (5) ESBL (extended spectrum beta-lactamase) producing bacteria infection Current Visit: Yes Status: Acute Plan: IT IS MOST LIKELY CONTAMINANT. FIRST UA WAS POSITIVE BUT WAS SO CALLED CLEAN CATCH. SECOND UA I ASKED FOR SPECICATH AND WAS TOTALLY NORMAL. 3RD UA WAS POSITIVE IN REHAB BUT WAS CLEAN CATCH THAT IS NOT USUALLY CLEAN IN WOMEN. I ASKED FOR SPECICATH AND THAT IS UA POSITIVE BUT SHE REALLY HAS NO SYMPTOMS EXCEPT WBC IS MILD HIGHER. THIS IS THE ONLY REASON I WILL TREAT UNTIL CULTURE COMES BACK. POSITIVE UA WITHOUT SYMPTOMS DOES NOT NEED TREATMENT. SHE IS BETTER ON CIPRO. TO CONTINUE FOR A WEEK.
--- NOTE | 2019-01-21 02:10 | FAST ---
SHIFT START DATE/TIME: 01/20/2019 19:00 (CDT) SHIFT END DATE/TIME: 01/21/2019 07:00 (CDT) NAME CELSO MADISON DATE OF : 1935 DATE OF ADMISSION: 01/15/2019 16:46 (CDT) PHONE: AGE: 83 SSN# [id number] GENDER: Female ENCOUNTER PHYSICIAN: Dr. Raúl Llanes M.D. ADMISSION DIAGNOSIS: - Orthopaedic Disorders 08 - Unilateral Hip Fracture (08.11) RIGHT MINIMALLY DISPLACED FEMORAL NECK FRACTURE JUST BELOW THE HEAD. EATING: Activity did not occur on this shift EATING - SCORE: 0-UNK GROOMING: Activity did not occur on this shift GROOMING - SCORE: 0-UNK BATHING: Activity did not occur on this shift BATHING - SCORE: 0-UNK DRESSING - UPPER BODY: Patient is not dressing in public clothing ARTICLES SCORE Total number of steps: 0 DRESSING - UPPER BODY - SCORE: 0-UNK DRESSING - LOWER BODY: Patient is not dressing in public clothing ARTICLES SCORE Total number of steps: 0 DRESSING - LOWER BODY - SCORE: 0-UNK TOILETING: TOILETING - STEP 1: Does the patient require the assistance of a person or device, or need extra time with toileting? Yes . TOILETING - STEP 2: Does the patient require the assistance of a helper? Yes. TOILETING - STEP 3: How much assistance does the patient require from the helper? Hands-on assistance from the helper TOILETING - STEP 4: Of the 3 tasks: 1) Adjusting clothing prior to use, 2) Cleansing of perineal area, 3) Adjusting clot alejandro after use; How many tasks does the patient perform WITHOUT assistance of the helper? Two tasks TOILETING - SCORE: 3-MOD BLADDER MANAGEMENT: BLADDER MANAGEMENT - STEP 1: Does the patient control the bladder completely and intentionally without equipment or devices or med ications, and is always continent? No. BLADDER MANAGEMENT - STEP 2: Does the patient require the assistance of a helper? Yes. BLADDER MANAGEMENT - STEP 3: How much assistance does the patient require from the helper? Only supervision, stand-by, cuing, or c oaxing BLADDER MANAGEMENT - SCORE: 5-SUP BOWEL MANAGEMENT: BOWEL MANAGEMENT - STEP 1: Does the patient control bowels completely and intentionally without equipment devices or medications AND is always continent? No. BOWEL MANAGEMENT - STEP 2: Does the patient require the assistance of a helper? No, patient requires medication for control such as stool softeners, suppositories, laxatives, enemas, or OTC medications BOWEL MANAGEMENT - SCORE: 6-DEMETRI TRANSFERS: BED, CHAIR, WHEELCHAIR: TRANSFERS: BED, CHAIR, WHEELCHAIR - STEP 1: Does the patient require assistance of a person or device, or need extra time with bed, chair, or whe elchair transfers? Yes. TRANSFERS: BED, CHAIR, WHEELCHAIR - STEP 2: Does the patient require the assistance of a helper? Yes. TRANSFERS: BED, CHAIR, WHEELCHAIR - STEP 3: How much assistance does the patient require from the helper? Lifting of the legs TRANSFERS: BED, CHAIR, WHEELCHAIR - STEP 4: How many legs does the patient require the helper to lift? both legs TRANSFERS: BED, CHAIR, WHEELCHAIR - SCORE: 3-MOD TRANSFERS: TOILET: TRANSFERS: TOILET - STEP 1: Does the patient require the assistance of a person or device, or need extra time with toilet transfe rs? Yes. TRANSFERS: TOILET - STEP 2: Does the patient require the assistance of a helper? Yes. TRANSFERS: TOILET - STEP 3: How much assistance does the patient require from the helper? Only supervision, cuing, coaxing, OR he lp to set out transfer equipment or to lock brakes and/or lift foot rests TRANSFERS: TOILET - SCORE: 5-SUP TRANSFERS: SHOWER: Activity did not occur on this shift TRANSFERS: SHOWER - SCORE: 0-UNK TRANSFERS: TUB: Activity did not occur on this shift TRANSFERS: TUB - SCORE: 0-UNK LOCOMOTION: WALK: Activity did not occur on this shift LOCOMOTION: WALK - SCORE: 0-UNK LOCOMOTION: WHEELCHAIR: Activity did not occur on this shift LOCOMOTION: WHEELCHAIR - SCORE: 0-UNK COMPREHENSION: COMPREHENSION: TYPE: Both COMPREHENSION - STEP 1: Does the patient require help from a person or device, or need extra time to understand complex and a bstract ideas (such as current events, finances, discharge planning, medical issues, relationships, e tc)? No. COMPREHENSION - STEP 2: Does the patient need extra time, require an assistive device (such as glasses for visual comprehensi on or a hearing aid for auditory comprehension) or does s/he have mild difficulty understanding compl ex and abstract information? Yes. COMPREHENSION - SCORE: 6-DEMETRI EXPRESSION EXPRESSION: TYPE: Both EXPRESSION - STEP 1: Does the patient require help from a person or device, or need extra time expressing complex and abst ract ideas (such as current events, finances, discharge planning, medical issues, relationships, etc) ? No. EXPRESSION - STEP 2: Does the patient need extra time, require an assistive device (such as augmentive communication syste m or a communication board), OR does s/he have mild difficulty expressing complex and abstract ideas (including mild dysarthria or mild word-find problems)? No. EXPRESSION - SCORE: 7-IND SOCIAL INTERACTION: SOCIAL INTERACTION - STEP 1: Does the patient require a helper to interact with others in social and therapeutic situations? No. SOCIAL INTERACTION - STEP 2: Does the patient need extra time in social situations, OR does s/he interact with staff, other patien ts, and family members ONLY in structured environments, OR does s/he require medication for social in teraction? Yes, patient needs extra time SOCIAL INTERACTION - SCORE: 6-DEMETRI PROBLEM SOLVING: PROBLEM SOLVING - STEP 1: Does the patient need help from a person or device, or need extra time to solve complex problems such as managing a checking account or confronting interpersonal problems? Yes. PROBLEM SOLVING - STEP 2: Does the patient solve basic routine problems half or more of the time? Yes. PROBLEM SOLVING - STEP 3: How often does the patient need help to solve basic routine problems? Less than 10% of the time PROBLEM SOLVING - SCORE: 5-SUP MEMORY: MEMORY - STEP 1: Does the patient need help from a person or device, or need extra time to remember frequently encount ered people, daily routines, and executing requests? No. MEMORY - STEP 2: Does the patient have slight difficulty recognizing frequently encountered people, daily routines, or executing requests without the need for repetition or using self-initiated or environmental cues to remember? Yes. MEMORY - SCORE: 6-DEMETRI SIGNATURE PANEL: The following modified sections: Eating - Score, Grooming - Score, Dressing - Upper Body - Score, Malik ssing - Lower Body - Score, Toileting - Score, Bladder Management - Score, Bowel Management - Score, Transfers: Bed, Chair, Wheelchair - Score, Transfers: Toilet - Score, Transfers: Shower - Score, Yeung sfers: Tub - Score, Locomotion: Walk - Score, Locomotion: Wheelchair - Score, Comprehension - Score, Expression - Score, Social Interaction - Score, Problem Solving - Score, Memory - Score were [electro nically] signed by Janee Adan CNA on FriJan 21 2019 02:10:01 GMT-0500 (Central Daylight Time)
[2019-01-21] MEDS: LEVOTHYROXINE SOD 0.075 MG TAB PO SCH (05:14)
[2019-01-21] MEDS: RANITIDINE 150 MG TABLET PO SCH (05:14)
[2019-01-21 06:07] LABS: Absolute Lymphocytes (CBC) 2.9 K/uL (0.7-4.9); Basophils % 0.9 % (0-1.3); Hematocrit 33.3 % (36.0-45.0); Lymphocytes % 37.5 % (15.3-44.8); MPV 8.7 fL (7.6-11.3); RBC Red Blood Cell Count 3.62 M/uL (3.86-4.86)
[2019-01-21 06:28] LABS: Albumin 2.6 g/dL (3.4-5.0); BUN Blood Urea Nitrogen 24 mg/dL (7-18); Bicarbonate 32 mmol/L (21-32); Glucose Level 92 mg/dL (74-106); Magnesium 2.4 mg/dL (1.8-2.4); Potassium 3.7 mmol/L (3.5-5.1); Prealbumin 12.2 mg/dL (20-40); Sodium Level 138 mmol/L (136-145)
[2019-01-21] MEDS: TRAMADOL HCL 50 MG TAB PO PRN ×3 (08:48→19:35)
[2019-01-21] MEDS: TORSEMIDE 20 MG TAB PO SCH (08:50)
[2019-01-21] MEDS: POTASSIUM CL SA 10 MEQ TAB PO SCH (08:51)
[2019-01-21] MEDS: CRANBERRY FRUIT EXTRACT 200 MG CAP PO SCH ×2 (08:51→19:33)
[2019-01-21] MEDS: JUVEN PACKET PO SCH ×2 (08:52→19:36)
[2019-01-21] MEDS: RIVAROXABAN 10 MG TABLET PO SCH (08:52)
[2019-01-21] MEDS: CIPROFLOXACIN HCL 250 MG TAB PO SCH ×2 (08:52→19:34)
[2019-01-21] MEDS: PROMOD 30 ML DOSE PO SCH ×2 (08:52→19:36)
[2019-01-21] MEDS: GABAPENTIN 300 MG CAP PO SCH ×2 (08:52→19:35)
[2019-01-21] MEDS: MAGNESIUM OXIDE 400 MG TAB PO SCH ×2 (08:53→19:34)
--- NOTE | 2019-01-21 13:07 | P.PN ---
Subjective Date of Service: 01/21/19 Chief Complaint: FEELS GOOD. Subjective: Improving SHE IS STABLE,COMFORTABLE, HAS SOME DYSPNEA WITHOUT OXYGEN. CHR DJD. SHE LOVES HER CONCOCTION MADE FROM [employer] AND SHE WILL GET IT HERE. NO CHEST PAIN. TODAY SHE IS FEELING A LOT BETTER. URINARY FREQUENCEY IS LESSER. SOME DIZZINESS FROM ABX. NO PAIN,NO FEVER. Review of Systems 10-point ROS is otherwise unremarkable Physical Examination - Vital Signs Temperature: 98.0 F Blood Pressure: 106/52 Pulse: 59 Respirations: 16 Pulse Ox (%): 95 - Physical Exam General: Alert, In no apparent distress HEENT: Atraumatic, PERRLA, EOMI Neck: Supple, JVD not distended Respiratory: Clear to auscultation bilaterally, Normal air movement Cardiovascular: Regular rate/rhythm, Normal S1 S2 Gastrointestinal: Normal bowel sounds, No tenderness Musculoskeletal: Swelling (HEAVY RIGHT LEG.) Integumentary: No rashes Neurological: Normal speech, Normal tone, Normal affect Lymphatics: No axilla or inguinal lymphadenopathy - Studies Laboratory Data (last 24 hrs) 01/21/19 05:58: Sodium 138, Potassium 3.7, BUN 24 H, Creatinine 0.60, Glucose 92 , Magnesium 2.4 01/21/19 05:58: WBC 7.7, Hgb 11.5 L, Hct 33.3 L, Plt Count 307 Microbiology Data (last 24 hrs): 01/18/19 14:30 Catheterized Urine [place] Count - Final >100,000 CFU/ML. 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 ON AC XARELTO. Qualifiers: Encounter type: subsequent encounter (4) Dyspnea Current Visit: Yes Status: Acute Plan: CHECK BNP , D DIMER CXR ALB, ATROVENT NEBS. STABLE FOR NOW. ORDER CT ANGIO AND VENOUS DOPPLER. SHE IS POST OP. SHE MAY NOT HAVE PE BUT AT RISK FOR NOW. (5) ESBL (extended spectrum beta-lactamase) producing bacteria infection Current Visit: Yes Status: Acute Plan: IT IS MOST LIKELY CONTAMINANT. FIRST UA WAS POSITIVE BUT WAS SO CALLED CLEAN CATCH. SECOND UA I ASKED FOR SPECICATH AND WAS TOTALLY NORMAL. 3RD UA WAS POSITIVE IN REHAB BUT WAS CLEAN CATCH THAT IS NOT USUALLY CLEAN IN WOMEN. I ASKED FOR SPECICATH AND THAT IS UA POSITIVE BUT SHE REALLY HAS NO SYMPTOMS EXCEPT WBC IS MILD HIGHER. THIS IS THE ONLY REASON I WILL TREAT UNTIL CULTURE COMES BACK. POSITIVE UA WITHOUT SYMPTOMS DOES NOT NEED TREATMENT. SHE IS BETTER ON CIPRO. TO CONTINUE FOR A WEEK.
--- NOTE | 2019-01-21 15:26 | FAST ---
SHIFT START DATE/TIME: 01/21/2019 07:00 (CDT) SHIFT END DATE/TIME: 01/21/2019 19:00 (CDT) NAME CELSO MADISON DATE OF : 1935 DATE OF ADMISSION: 01/15/2019 16:46 (CDT) PHONE: AGE: 83 SSN# [id number] GENDER: Female ENCOUNTER PHYSICIAN: Dr. Raúl Llanes M.D. ADMISSION DIAGNOSIS: - Orthopaedic Disorders 08 - Unilateral Hip Fracture (08.11) RIGHT MINIMALLY DISPLACED FEMORAL NECK FRACTURE JUST BELOW THE HEAD. EATING: EATING - STEP 1: Does the patient require the assistance of a person or device, or need extra time when eating? Yes. EATING - STEP 2: Does the patient require the assistance of a helper? No, patient only requires an assistive device, O R s/he takes more than reasonable time to eat, OR there is a safety concern, OR s/he requires modifie d food consistency EATING - SCORE: 6-DEMETRI GROOMING: Activity did not occur on this shift GROOMING - SCORE: 0-UNK BATHING: Activity did not occur on this shift BATHING - SCORE: 0-UNK DRESSING - UPPER BODY: Activity did not occur on this shift ARTICLES SCORE Total number of steps: 0 DRESSING - UPPER BODY - SCORE: 0-UNK DRESSING - LOWER BODY: Activity did not occur on this shift ARTICLES SCORE Total number of steps: 0 DRESSING - LOWER BODY - SCORE: 0-UNK TOILETING: TOILETING - STEP 1: Does the patient require the assistance of a person or device, or need extra time with toileting? Yes . TOILETING - STEP 2: Does the patient require the assistance of a helper? Yes. TOILETING - STEP 3: How much assistance does the patient require from the helper? Only supervision TOILETING - SCORE: 5-SUP BLADDER MANAGEMENT: BLADDER MANAGEMENT - STEP 1: Does the patient control the bladder completely and intentionally without equipment or devices or med ications, and is always continent? No. BLADDER MANAGEMENT - STEP 2: Does the patient require the assistance of a helper? No, patient requires and independently uses an a ssistive device, such as a urinal, bedpan, bedside commode, catheter, absorbent pad, or collecting de vice BLADDER MANAGEMENT - SCORE: 6-DEMETRI BOWEL MANAGEMENT: Activity did not occur on this shift BOWEL MANAGEMENT - SCORE: 7-IND TRANSFERS: BED, CHAIR, WHEELCHAIR: TRANSFERS: BED, CHAIR, WHEELCHAIR - STEP 1: Does the patient require assistance of a person or device, or need extra time with bed, chair, or whe elchair transfers? Yes. TRANSFERS: BED, CHAIR, WHEELCHAIR - STEP 2: Does the patient require the assistance of a helper? Yes. TRANSFERS: BED, CHAIR, WHEELCHAIR - STEP 3: How much assistance does the patient require from the helper? Only supervision TRANSFERS: BED, CHAIR, WHEELCHAIR - SCORE: 5-SUP TRANSFERS: TOILET: TRANSFERS: TOILET - STEP 1: Does the patient require the assistance of a person or device, or need extra time with toilet transfe rs? Yes. TRANSFERS: TOILET - STEP 2: Does the patient require the assistance of a helper? Yes. TRANSFERS: TOILET - STEP 3: How much assistance does the patient require from the helper? Patient performs half or more of the tr ansferring tasks TRANSFERS: TOILET - STEP 4: Does the patient need only incidental help such as contact guard or steadying during toilet transfer? Yes. TRANSFERS: TOILET - SCORE: 4-MIN TRANSFERS: SHOWER: Activity did not occur on this shift TRANSFERS: SHOWER - SCORE: 0-UNK TRANSFERS: TUB: Activity did not occur on this shift TRANSFERS: TUB - SCORE: 0-UNK LOCOMOTION: WALK: Activity did not occur on this shift LOCOMOTION: WALK - SCORE: 0-UNK LOCOMOTION: WHEELCHAIR: Activity did not occur on this shift LOCOMOTION: WHEELCHAIR - SCORE: 0-UNK COMPREHENSION: COMPREHENSION: TYPE: Both COMPREHENSION - STEP 1: Does the patient require help from a person or device, or need extra time to understand complex and a bstract ideas (such as current events, finances, discharge planning, medical issues, relationships, e tc)? No. COMPREHENSION - STEP 2: Does the patient need extra time, require an assistive device (such as glasses for visual comprehensi on or a hearing aid for auditory comprehension) or does s/he have mild difficulty understanding compl ex and abstract information? Yes. COMPREHENSION - SCORE: 6-DEMETRI EXPRESSION EXPRESSION: TYPE: Both EXPRESSION - STEP 1: Does the patient require help from a person or device, or need extra time expressing complex and abst ract ideas (such as current events, finances, discharge planning, medical issues, relationships, etc) ? No. EXPRESSION - STEP 2: Does the patient need extra time, require an assistive device (such as augmentive communication syste m or a communication board), OR does s/he have mild difficulty expressing complex and abstract ideas (including mild dysarthria or mild word-find problems)? Yes. EXPRESSION - SCORE: 6-DEMETRI SOCIAL INTERACTION: SOCIAL INTERACTION - STEP 1: Does the patient require a helper to interact with others in social and therapeutic situations? No. SOCIAL INTERACTION - STEP 2: Does the patient need extra time in social situations, OR does s/he interact with staff, other patien ts, and family members ONLY in structured environments, OR does s/he require medication for social in teraction? Yes, patient needs extra time SOCIAL INTERACTION - SCORE: 6-DEMETRI PROBLEM SOLVING: PROBLEM SOLVING - STEP 1: Does the patient need help from a person or device, or need extra time to solve complex problems such as managing a checking account or confronting interpersonal problems? No. PROBLEM SOLVING - STEP 2: Does the patient require extra time to make decisions or solve problems, OR does s/he have slight dif ficulty reading, initiating, or self-correcting in unfamiliar situations? No. PROBLEM SOLVING - SCORE: 7-IND MEMORY: MEMORY - STEP 1: Does the patient need help from a person or device, or need extra time to remember frequently encount ered people, daily routines, and executing requests? No. MEMORY - STEP 2: Does the patient have slight difficulty recognizing frequently encountered people, daily routines, or executing requests without the need for repetition or using self-initiated or environmental cues to remember? No. MEMORY - SCORE: 7-IND SIGNATURE PANEL: The following modified sections: Eating - Score, Grooming - Score, Bathing - Score, Dressing - Upper Body - Score, Dressing - Lower Body - Score, Toileting - Score, Bladder Management - Score, Bowel Man agement - Score, Transfers: Bed, Chair, Wheelchair - Score, Transfers: Toilet - Score, Transfers: Maggi wer - Score, Transfers: Tub - Score, Locomotion: Walk - Score, Locomotion: Wheelchair - Score, Compre hension - Score, Expression - Score, Social Interaction - Score, Problem Solving - Score, Memory - Sc ore were [electronically] signed by Romeo Mcrae on FriJan 21 2019 15:24:58 GMT-0500 (Central Daylight Time)
--- NOTE | 2019-01-21 16:21 | FAST ---
ENCOUNTER DATE AND TIME: 01/21/2019 08:00 (CDT) NAME CELSO MADISON DATE OF : 1935 DATE OF ADMISSION: 01/15/2019 16:46 (CDT) PHONE: AGE: 83 SSN# [id number] GENDER: Female ENCOUNTER PHYSICIAN: Dr. Raúl Llanes M.D. ADMISSION DIAGNOSIS: - Orthopaedic Disorders 08 - Unilateral Hip Fracture (08.11) RIGHT MINIMALLY DISPLACED FEMORAL NECK FRACTURE JUST BELOW THE HEAD. EATING: Activity did not occur on this shift EATING - SCORE: 0-UNK GROOMING: Activity did not occur on this shift GROOMING - SCORE: 0-UNK BATHING: Activity did not occur on this shift BATHING - SCORE: 0-UNK DRESSING - UPPER BODY: Activity did not occur on this shift Patient is not dressing in public clothing ARTICLES SCORE Total number of steps: 0 DRESSING - UPPER BODY - SCORE: 0-UNK DRESSING - LOWER BODY: Activity did not occur on this shift Patient is not dressing in public clothing ARTICLES SCORE Total number of steps: 0 DRESSING - LOWER BODY - SCORE: 0-UNK TOILETING: Activity did not occur on this shift TOILETING - SCORE: 0-UNK BLADDER MANAGEMENT: Activity did not occur on this shift BLADDER MANAGEMENT - SCORE: 7-IND BOWEL MANAGEMENT: Activity did not occur on this shift BOWEL MANAGEMENT - SCORE: 7-IND TRANSFERS: BED, CHAIR, WHEELCHAIR: TRANSFERS: BED, CHAIR, WHEELCHAIR - STEP 1: Does the patient require assistance of a person or device, or need extra time with bed, chair, or whe elchair transfers? Yes. TRANSFERS: BED, CHAIR, WHEELCHAIR - STEP 2: Does the patient require the assistance of a helper? Yes. TRANSFERS: BED, CHAIR, WHEELCHAIR - STEP 3: How much assistance does the patient require from the helper? Lifting of the patient TRANSFERS: BED, CHAIR, WHEELCHAIR - STEP 4: Does the helper lift the patient ONLY up? ONLY down? Up AND Down? ONLY up. TRANSFERS: BED, CHAIR, WHEELCHAIR - SCORE: 3-MOD TRANSFERS: TOILET: Activity did not occur on this shift TRANSFERS: TOILET - SCORE: 0-UNK TRANSFERS: SHOWER: Activity did not occur on this shift TRANSFERS: SHOWER - SCORE: 0-UNK TRANSFERS: TUB: Activity did not occur on this shift TRANSFERS: TUB - SCORE: 0-UNK LOCOMOTION: WALK: LOCOMOTION: WALK - STEP 1: Does the patient need help from a person or device, or need extra time to walk 150 feet? Yes. LOCOMOTION: WALK - STEP 2: How much assistance does the patient require to walk a minimum of 150 feet? Patient walks less than 1 50 feet - but more than 50 feet - with the assistance of only one helper LOCOMOTION: WALK - SCORE: 2-MAX LOCOMOTION: WHEELCHAIR: LOCOMOTION: WHEELCHAIR - STEP 1: Does the patient need help to go 150 feet in a wheelchair? Yes. LOCOMOTION: WHEELCHAIR - STEP 2: How much assistance does the patient need from the helper? Only supervision, cuing, or coaxing LOCOMOTION: WHEELCHAIR - SCORE: 5-SUP LOCOMOTION: STAIRS: Activity did not occur on this shift LOCOMOTION: STAIRS - SCORE: 0-UNK COMPREHENSION: COMPREHENSION - SCORE: 0-UNK EXPRESSION EXPRESSION - SCORE: 0-UNK SOCIAL INTERACTION: SOCIAL INTERACTION - SCORE: 0-UNK PROBLEM SOLVING: PROBLEM SOLVING - SCORE: 0-UNK MEMORY: MEMORY - SCORE: 0-UNK SIGNATURE PANEL: The following modified sections: Transfers: Bed, Chair, Wheelchair - Score, Transfers: Toilet - Score , Locomotion: Walk - Score, Locomotion: Wheelchair - Score, Locomotion: Stairs - Score were [electron chitra] signed by Chris Leonard PT on FriJan 21 2019 16:20:12 GMT-0500 (Central Daylight Time)
--- NOTE | 2019-01-21 17:39 | R.PN ---
ENCOUNTER DATE AND TIME: 01/21/2019 17:34 (CDT) NAME CELSO MADISON DATE OF : 1935 DATE OF ADMISSION: 01/15/2019 16:46 (CDT) RIGHT MINIMALLY DISPLACED FEMORAL NECK FRACTURE JUST BELOW THE HEADCHIEF COMPLAINT: Right hip fracture. SUBJECTIVE: Pt denied any Shortness of Breath. Pt denied any depression. Ambulated 90' with a rolling walker, minimum assistance and touch down weight bearing. She reports muscle spasms at night after exercise. Will start magnesium 400 mg twice daily and baclof en 5 mg at night. VITAL SIGNS Temperature: 98.0 F SBP/DBP: 106/52 Pulse: 59 Resp: 14 MEDICATION ALLERGIES: PENICILLIN ENVIRONMENTAL ALLERGIES: None Known - Substance Allergies None Known - Other Allergies None Known NURSING: - Shower allowing shower - Skin care per protocol PRECAUTIONS: - Posterior Hip Precaution No adduction across midline No external rotation No hip flexion >90 degrees No internal rotation No wheel chair propulsion - Weight Bearing Precaution TTWB right LE ACTIVITIES OOB only with supervision THERAPIES: - Dietary and Nutrition Adequate Nutrition. Nutritional Education. Nutritional Supplements. PHYSICAL EXAM - Gen Alert and awake Lying in bed No apparent distress Oriented to: person, time, and place - Skin No skin breakdown. Normacephalic - Eyes No abnormalities - ENMT No abnormalities - Neck No abnormalities - CVS RRR - Resp Clear to auscultation - Abd Soft - GI Non distended Deferred - No abnormalities - Ext Mild left lower extremity edema. - MSK 4+/5 weakness in right lower extremity - Neuro 4/5 strength right lower extremity. - Psych No abnormalities ASSESSMENT: Pt. is a 83 yo Right-handed white female.On 01/13/2019 she was admitted to [facility] with diagnosis RIGHT MINIMALLY DISPLACED FEMORAL NECK FRACTURE JUST BELOW THE HEAD.Her [facility] ent category is Orthopaedic Disorders 08 - Unilateral Hip Fracture (08.11).Pre-morbidly, Pt. was ind ependent/mod-I in Self-Care, Sphincter Control, Transfers Control, Locomotion, Communication, and Soc ial Cognition; and she had good Sphincter Control.Currently, she has deficits of Self-Care, Transfers Control, Locomotion, Endurance, Balance, and Safety Awareness.Pt. is now referred to [facility] for acute in-patient rehabilitation in order to maximize patient's functional inde pendence in activities of daily living, strength, ROM, and mobility.- Rehab Goal Patient has realistic goal of being discharged at assistance level 6-Amado to reside at Home with Fam tevin/Relatives. MDM/PLAN: - Physical Therapy Decreased range of motion - to improve, our physical therapists will perform initial evaluation of p t's status upon admission and devise an individualized program for increasing patient's Range of Adria on. Gait dysfunction - to improve, our physical therapists will perform initial evaluation of pt's statu s upon admission and devise an individualized program for Gait Training, and Wheel Chair mobility Inability to transfer - to improve, our physical therapists will perform initial evaluation of pt's status upon admission and devise an individualized program for Bed mobility Need for home safety evaluation - to improve, our physical therapists will perform initial evaluatio n of pt's status upon admission and devise an individualized program for Home Evaluation Need in caregiver upon discharge - to improve, our physical therapists will perform initial evaluati on of pt's status upon admission and devise an individualized program for Caregiver Training Edema - to improve, our physical therapists will perform initial evaluation of pt's status upon admi ssion and devise an individualized program for Elevation Training, and Lymphedema Therapy New precaution - to improve, our physical therapists will perform initial evaluation of pt's status upon admission and devise an individualized program for Patient precaution education Poor balance - to improve, our physical therapists will perform initial evaluation of pt's status up on admission and devise an individualized program for Balance Training Poor endurance - to improve, our physical therapists will perform initial evaluation of pt's status upon admission and devise an individualized program for Endurance Training Weakness - to improve, our physical therapists will perform initial evaluation of pt's status upon a dmission and devise an individualized program for Aquatic Therapy, Neuromuscular Reeducation, and Str engthening Achieving independence - to improve, our physical therapists will perform initial evaluation of pt's status upon admission and devise an individualized program for Community Reintegration Activities - Occupational Therapy ADL deficits - to improve, our occupation therapists will perform initial evaluation of pt's status upon admission and devise an individualized program for Bathing, Bed mobility, Community Reintegratio n, Cooking, Dressing, Eating, Fine Motor Skills, Grooming, Homemaking, Kitchen Mobility, Laundry, Pat ient Education, Safety Awareness, Splinting - Positioning, Transfers(Toilet, Tub, Shower), and Wheel Chair Management Need for health care attorney - to improve, our occupation therapists will perform initial evaluation of pt's status upon admission and devise an individualized program for Caregiver Training Weakness - to improve, our occupation therapists will perform initial evaluation of pt's status upon admission and devise an individualized program for Aquatic Therapy, Balance, Endurance, UE ROM, and UE strengthening - Other See attached MAR (Medication Administration Record) - Anterior Hip Precaution No abduction No active extension No adduction across midline No external rotation No hip flexion >90 degrees No internal rotation - Diet - Liquid Texture Continue Regular - Tube Feed Continue N/A - Diet Type Continue Regular - Posterior Hip Precaution No adduction across midline No external rotation No hip flexion >90 degrees No internal rotation No wheel chair propulsion - Weight Bearing Precaution TTWB right LE - Skin care per protocol - Diet - Solid Texture Continue Regular - Shower allowing shower FUNCTIONAL STATUS: UPDATED AT WEEKLY TEAM CONFERENCE - Bladder Same accident frequency: 7-Ind - No accidents in the past 7 days - Bowel Same accident frequency: 7-Ind - No accidents in the past 7 days - Walking Same score based on distance walked: 1(<=50ft) - Wheelchair Same score based on distance traveled: 0(N/A) FUNCTIONAL STATUS: - Self-Care A. Eating sup B. Grooming sup C. Bathing modA D. Dressing - Upper [place] E. Dressing - Lower maxA F. Toileting maxA - Sphincter Control G: Bladder control Ind H: Bowel control Ind - Transfers Control I. Bed/Chair/Wheelchair modA J. Toilet modA K. Tub/Shower ADNO - Locomotion L. Walk/Wheelchair (C) maxA L. Walk/Wheelchair (W) maxA M. Stairs ADNO - Communication N. Comprehension (B) Ind O. Expression (B) Ind - Social Cognition P. Social Interaction Ind Q. Problem Solving Ind R. Memory Ind - Endurance Fair - Balance Fair - Safety Awareness Fair CURRENT FUNC. DEFICITS: Self-Care, Transfers Control, Locomotion, Endurance, Balance, and Safety Awareness SIGNATURE PANEL: (CDT)
[2019-01-21] MEDS: BACLOFEN 10 MG TAB PO SCH (19:34)
--- NOTE | 2019-01-22 01:15 | FAST ---
SHIFT START DATE/TIME: 01/21/2019 19:00 (CDT) SHIFT END DATE/TIME: 01/22/2019 07:00 (CDT) NAME CELSO MADISON DATE OF : 1935 DATE OF ADMISSION: 01/15/2019 16:46 (CDT) PHONE: AGE: 83 SSN# [id number] GENDER: Female ENCOUNTER PHYSICIAN: Dr. Raúl Llanes M.D. ADMISSION DIAGNOSIS: - Orthopaedic Disorders 08 - Unilateral Hip Fracture (08.11) RIGHT MINIMALLY DISPLACED FEMORAL NECK FRACTURE JUST BELOW THE HEAD. EATING: Activity did not occur on this shift EATING - SCORE: 0-UNK GROOMING: Wash, rinse, and dry hands GROOMING - STEP 1: Does the patient require the assistance of a person or device, or need extra time when grooming? Yes. GROOMING - STEP 2: Does the patient require the assistance of a helper? No. The patient only requires an assistive devic e, OR takes more than reasonable time to groom, OR there is a concern for safety as the patient groom s GROOMING - SCORE: 6-DEMETRI BATHING: Activity did not occur on this shift BATHING - SCORE: 0-UNK DRESSING - UPPER BODY: Patient is not dressing in public clothing ARTICLES SCORE Total number of steps: 0 DRESSING - UPPER BODY - SCORE: 0-UNK DRESSING - LOWER BODY: Patient is not dressing in public clothing ARTICLES SCORE Total number of steps: 0 DRESSING - LOWER BODY - SCORE: 0-UNK TOILETING: TOILETING - STEP 1: Does the patient require the assistance of a person or device, or need extra time with toileting? Yes . TOILETING - STEP 2: Does the patient require the assistance of a helper? Yes. TOILETING - STEP 3: How much assistance does the patient require from the helper? Hands-on assistance from the helper TOILETING - STEP 4: Of the 3 tasks: 1) Adjusting clothing prior to use, 2) Cleansing of perineal area, 3) Adjusting clot alejandro after use; How many tasks does the patient perform WITHOUT assistance of the helper? Two tasks TOILETING - SCORE: 3-MOD BLADDER MANAGEMENT: BLADDER MANAGEMENT - STEP 1: Does the patient control the bladder completely and intentionally without equipment or devices or med ications, and is always continent? No. BLADDER MANAGEMENT - STEP 2: Does the patient require the assistance of a helper? Yes. BLADDER MANAGEMENT - STEP 3: How much assistance does the patient require from the helper? Only supervision, stand-by, cuing, or c oaxing BLADDER MANAGEMENT - SCORE: 5-SUP BOWEL MANAGEMENT: BOWEL MANAGEMENT - STEP 1: Does the patient control bowels completely and intentionally without equipment devices or medications AND is always continent? No. BOWEL MANAGEMENT - STEP 2: Does the patient require the assistance of a helper? No, patient requires medication for control such as stool softeners, suppositories, laxatives, enemas, or OTC medications BOWEL MANAGEMENT - SCORE: 6-DEMETRI TRANSFERS: BED, CHAIR, WHEELCHAIR: TRANSFERS: BED, CHAIR, WHEELCHAIR - STEP 1: Does the patient require assistance of a person or device, or need extra time with bed, chair, or whe elchair transfers? Yes. TRANSFERS: BED, CHAIR, WHEELCHAIR - STEP 2: Does the patient require the assistance of a helper? Yes. TRANSFERS: BED, CHAIR, WHEELCHAIR - STEP 3: How much assistance does the patient require from the helper? Steadying/guiding assistance TRANSFERS: BED, CHAIR, WHEELCHAIR - SCORE: 4-MIN TRANSFERS: TOILET: TRANSFERS: TOILET - STEP 1: Does the patient require the assistance of a person or device, or need extra time with toilet transfe rs? Yes. TRANSFERS: TOILET - STEP 2: Does the patient require the assistance of a helper? Yes. TRANSFERS: TOILET - STEP 3: How much assistance does the patient require from the helper? Only supervision, cuing, coaxing, OR he lp to set out transfer equipment or to lock brakes and/or lift foot rests TRANSFERS: TOILET - SCORE: 5-SUP TRANSFERS: SHOWER: Activity did not occur on this shift TRANSFERS: SHOWER - SCORE: 0-UNK TRANSFERS: TUB: Activity did not occur on this shift TRANSFERS: TUB - SCORE: 0-UNK LOCOMOTION: WALK: Activity did not occur on this shift LOCOMOTION: WALK - SCORE: 0-UNK LOCOMOTION: WHEELCHAIR: Activity did not occur on this shift LOCOMOTION: WHEELCHAIR - SCORE: 0-UNK COMPREHENSION: COMPREHENSION: TYPE: Both COMPREHENSION - STEP 1: Does the patient require help from a person or device, or need extra time to understand complex and a bstract ideas (such as current events, finances, discharge planning, medical issues, relationships, e tc)? No. COMPREHENSION - STEP 2: Does the patient need extra time, require an assistive device (such as glasses for visual comprehensi on or a hearing aid for auditory comprehension) or does s/he have mild difficulty understanding compl ex and abstract information? Yes. COMPREHENSION - SCORE: 6-DEMETRI EXPRESSION EXPRESSION: TYPE: Both EXPRESSION - STEP 1: Does the patient require help from a person or device, or need extra time expressing complex and abst ract ideas (such as current events, finances, discharge planning, medical issues, relationships, etc) ? No. EXPRESSION - STEP 2: Does the patient need extra time, require an assistive device (such as augmentive communication syste m or a communication board), OR does s/he have mild difficulty expressing complex and abstract ideas (including mild dysarthria or mild word-find problems)? Yes. EXPRESSION - SCORE: 6-DEMETRI SOCIAL INTERACTION: SOCIAL INTERACTION - STEP 1: Does the patient require a helper to interact with others in social and therapeutic situations? No. SOCIAL INTERACTION - STEP 2: Does the patient need extra time in social situations, OR does s/he interact with staff, other patien ts, and family members ONLY in structured environments, OR does s/he require medication for social in teraction? Yes, patient needs extra time SOCIAL INTERACTION - SCORE: 6-DEMETRI PROBLEM SOLVING: PROBLEM SOLVING - STEP 1: Does the patient need help from a person or device, or need extra time to solve complex problems such as managing a checking account or confronting interpersonal problems? Yes. PROBLEM SOLVING - STEP 2: Does the patient solve basic routine problems half or more of the time? Yes. PROBLEM SOLVING - STEP 3: How often does the patient need help to solve basic routine problems? Less than 10% of the time PROBLEM SOLVING - SCORE: 5-SUP MEMORY: MEMORY - STEP 1: Does the patient need help from a person or device, or need extra time to remember frequently encount ered people, daily routines, and executing requests? No. MEMORY - STEP 2: Does the patient have slight difficulty recognizing frequently encountered people, daily routines, or executing requests without the need for repetition or using self-initiated or environmental cues to remember? Yes. MEMORY - SCORE: 6-DEMETRI SIGNATURE PANEL: The following modified sections: Eating - Score, Grooming - Score, Dressing - Upper Body - Score, Malik ssing - Lower Body - Score, Toileting - Score, Bladder Management - Score, Bowel Management - Score, Transfers: Bed, Chair, Wheelchair - Score, Transfers: Toilet - Score, Transfers: Shower - Score, Yeung sfers: Tub - Score, Locomotion: Walk - Score, Locomotion: Wheelchair - Score, Comprehension - Score, Expression - Score, Social Interaction - Score, Problem Solving - Score, Memory - Score were [electro nically] signed by Janee Adan CNA on FriJan 22 2019 01:13:39 GMT-0500 (Central Daylight Time)
[2019-01-22] MEDS: LEVOTHYROXINE SOD 0.075 MG TAB PO SCH (05:23)
[2019-01-22] MEDS: RANITIDINE 150 MG TABLET PO SCH (05:23)
[2019-01-22] MEDS: POTASSIUM CL SA 10 MEQ TAB PO SCH (07:31)
[2019-01-22] MEDS: CRANBERRY FRUIT EXTRACT 200 MG CAP PO SCH ×2 (07:32→20:48)
[2019-01-22] MEDS: TORSEMIDE 20 MG TAB PO SCH (07:32)
[2019-01-22] MEDS: GABAPENTIN 300 MG CAP PO SCH ×2 (07:32→20:48)
[2019-01-22] MEDS: RIVAROXABAN 10 MG TABLET PO SCH (07:32)
[2019-01-22] MEDS: CIPROFLOXACIN HCL 250 MG TAB PO SCH ×2 (07:33→20:48)
[2019-01-22] MEDS: TRAMADOL HCL 50 MG TAB PO PRN ×2 (07:33→13:09)
[2019-01-22] MEDS: PROMOD 30 ML DOSE PO SCH ×2 (07:34→20:50)
[2019-01-22] MEDS: JUVEN PACKET PO SCH ×2 (07:34→20:49)
[2019-01-22] MEDS: MAGNESIUM OXIDE 400 MG TAB PO SCH ×2 (07:35→20:00)
--- NOTE | 2019-01-22 08:22 | FAST ---
ENCOUNTER DATE AND TIME: 01/22/2019 08:00 (CDT) NAME CELSO MADISON DATE OF : 1935 DATE OF ADMISSION: 01/15/2019 16:46 (CDT) PHONE: AGE: 83 SSN# [id number] GENDER: Female ENCOUNTER PHYSICIAN: Dr. Raúl Llanes M.D. ADMISSION DIAGNOSIS: - Orthopaedic Disorders 08 - Unilateral Hip Fracture (08.11) RIGHT MINIMALLY DISPLACED FEMORAL NECK FRACTURE JUST BELOW THE HEAD. EATING: Activity did not occur on this shift EATING - SCORE: 0-UNK GROOMING: Comb/brush hair Wash, rinse, and dry face Wash, rinse, and dry hands GROOMING - STEP 1: Does the patient require the assistance of a person or device, or need extra time when grooming? No. GROOMING - SCORE: 7-IND BATHING: Abdomen Buttocks Chest Left arm Left lower leg and foot Left upper leg Perineal area Right arm Right lower leg and foot Right upper leg BATHING - STEP 1: Does the patient require the assistance of a person or device, or need extra time when bathing? Yes. BATHING - STEP 2: Does the patient require the assistance of a helper? Yes. BATHING - STEP 3: How much assistance does the patient require from the helper? Only supervision, cuing, coaxing, instr uctions, encouragement BATHING - SCORE: 5-SUP DRESSING - UPPER BODY: T-shirt/pullover shirt (four steps) ARTICLES SCORE Total number of steps: 4 DRESSING - UPPER BODY - STEP 1: Does the patient require help from a person or device, or need extra time when dressing above the coni st? Yes. DRESSING - UPPER BODY - STEP 2: Does the patient require the assistance of a helper? Yes. DRESSING - UPPER BODY - STEP 3: Does the helper touch the patient while dressing? No. DRESSING - UPPER BODY - SCORE: 5-SUP DRESSING - LOWER BODY: Elastic waist pants (three steps) Sock - Left foot (one step) Sock - Right foot (one step) Underwear (three steps) ARTICLES SCORE Total number of steps: 8 DRESSING - LOWER BODY - STEP 1: Does the patient require help from a person or device, or need extra time when dressing below the coni st? Yes. DRESSING - LOWER BODY - STEP 2: Does the patient require the assistance of a helper? Yes. DRESSING - LOWER BODY - STEP 3: Does the helper touch the patient while dressing? Yes. DRESSING - LOWER BODY - STEP 4: How many of the total steps does the patient complete on his/her own? 6 DRESSING - LOWER BODY - SCORE: 4-MIN TOILETING: Activity did not occur on this shift TOILETING - SCORE: 0-UNK BLADDER MANAGEMENT: Activity did not occur on this shift BLADDER MANAGEMENT - SCORE: 7-IND BOWEL MANAGEMENT: Activity did not occur on this shift BOWEL MANAGEMENT - SCORE: 7-IND TRANSFERS: BED, CHAIR, WHEELCHAIR: Activity did not occur on this shift TRANSFERS: BED, CHAIR, WHEELCHAIR - SCORE: 0-UNK TRANSFERS: TOILET: Activity did not occur on this shift TRANSFERS: TOILET - SCORE: 0-UNK TRANSFERS: SHOWER: Activity did not occur on this shift TRANSFERS: SHOWER - SCORE: 0-UNK TRANSFERS: TUB: TRANSFERS: TUB - STEP 1: Does the patient require the assistance of a person or device, or need extra time with tub transfers? Yes. TRANSFERS: TUB - STEP 2: Does the patient require the assistance of a helper? Yes. TRANSFERS: TUB - STEP 3: How much assistance does the patient require from the helper? Incidental help such as contact guardin g or steadying, OR help to lift one leg into the tub TRANSFERS: TUB - SCORE: 4-MIN LOCOMOTION: WALK: Activity did not occur on this shift LOCOMOTION: WALK - SCORE: 0-UNK LOCOMOTION: WHEELCHAIR: Activity did not occur on this shift LOCOMOTION: WHEELCHAIR - SCORE: 0-UNK LOCOMOTION: STAIRS: Activity did not occur on this shift LOCOMOTION: STAIRS - SCORE: 0-UNK COMPREHENSION: COMPREHENSION: TYPE: Visual COMPREHENSION - STEP 1: Does the patient require help from a person or device, or need extra time to understand complex and a bstract ideas (such as current events, finances, discharge planning, medical issues, relationships, e tc)? No. COMPREHENSION - STEP 2: Does the patient need extra time, require an assistive device (such as glasses for visual comprehensi on or a hearing aid for auditory comprehension) or does s/he have mild difficulty understanding compl ex and abstract information? Yes. COMPREHENSION - SCORE: 6-DEMTERI EXPRESSION EXPRESSION: TYPE: Non-Vocal EXPRESSION - STEP 1: Does the patient require help from a person or device, or need extra time expressing complex and abst ract ideas (such as current events, finances, discharge planning, medical issues, relationships, etc) ? No. EXPRESSION - STEP 2: Does the patient need extra time, require an assistive device (such as augmentive communication syste m or a communication board), OR does s/he have mild difficulty expressing complex and abstract ideas (including mild dysarthria or mild word-find problems)? No. EXPRESSION - SCORE: 7-IND SOCIAL INTERACTION: SOCIAL INTERACTION - STEP 1: Does the patient require a helper to interact with others in social and therapeutic situations? No. SOCIAL INTERACTION - STEP 2: Does the patient need extra time in social situations, OR does s/he interact with staff, other patien ts, and family members ONLY in structured environments, OR does s/he require medication for social in teraction? No. SOCIAL INTERACTION - SCORE: 7-IND PROBLEM SOLVING: PROBLEM SOLVING - STEP 1: Does the patient need help from a person or device, or need extra time to solve complex problems such as managing a checking account or confronting interpersonal problems? No. PROBLEM SOLVING - STEP 2: Does the patient require extra time to make decisions or solve problems, OR does s/he have slight dif ficulty reading, initiating, or self-correcting in unfamiliar situations? No. PROBLEM SOLVING - SCORE: 7-IND MEMORY: MEMORY - STEP 1: Does the patient need help from a person or device, or need extra time to remember frequently encount ered people, daily routines, and executing requests? No. MEMORY - STEP 2: Does the patient have slight difficulty recognizing frequently encountered people, daily routines, or executing requests without the need for repetition or using self-initiated or environmental cues to remember? No. MEMORY - SCORE: 7-IND SIGNATURE PANEL: The following modified sections: Eating - Score, Grooming - Score, Bathing - Score, Dressing - Upper Body - Score, Dressing - Lower Body - Score, Toileting - Score, Transfers: Bed, Chair, Wheelchair - S core, Transfers: Toilet - Score, Transfers: Shower - Score, Transfers: Tub - Score, Comprehension - S core, Expression - Score, Social Interaction - Score, Problem Solving - Score, Memory - Score were [e lectronically] signed by LLUVIA Vickers on FriJan 22 2019 08:21:42 [facility]-0500 ([facility] Time)
--- NOTE | 2019-01-22 09:50 | P.RH.PN ---
Estimated Length of Stay: 12 Expected Discharge Date: 01/27/19 Discharge Disposition Plan: Home Family Support: Yes Custodial Goal: Mobility, Transfers, Self Care Vital Signs: Last Vital Signs Temp 977.4 F H 01/22/19 07:22 Pulse 68 01/22/19 07:32 Resp 16 01/22/19 07:33 BP 120/70 01/22/19 07:32 Pulse Ox 96 01/22/19 07:33 Laboratory: Laboratory Last Values WBC 7.7 K/uL (4.3-10.9) 01/21/19 05:58 RBC 3.62 M/uL (3.86-4.86) L 01/21/19 05:58 Hgb 11.5 g/dL (12.0-15.0) L 01/21/19 05:58 Hct 33.3 % (36.0-45.0) L 01/21/19 05:58 MCV 91.8 fL (80-100) 01/21/19 05:58 MCH 31.8 pg (27.0-35.0) 01/21/19 05:58 MCHC 34.7 g/dL (32.0-36.0) 01/21/19 05:58 RDW 12.9 % (12.1-15.2) 01/21/19 05:58 Plt Count 307 K/uL (152-406) 01/21/19 05:58 MPV 8.7 fL (7.6-11.3) 01/21/19 05:58 Neutrophils % 43.1 % (41.7-73.7) 01/21/19 05:58 Lymphocytes % 37.5 % (15.3-44.8) 01/21/19 05:58 Monocytes % 13.2 % (3.3-12.3) H 01/21/19 05:58 Eosinophils % 5.3 % (0-4.4) H 01/21/19 05:58 Basophils % 0.9 % (0-1.3) 01/21/19 05:58 Absolute Neutrophils 3.3 K/uL (1.8-8.0) 01/21/19 05:58 Absolute Lymphocytes 2.9 K/uL (0.7-4.9) 01/21/19 05:58 Absolute Monocytes 1.0 K/uL (0.1-1.3) 01/21/19 05:58 Absolute Eosinophils 0.4 K/uL (0-0.5) 01/21/19 05:58 Absolute Basophils 0.1 K/uL (0-0.5) 01/21/19 05:58 Diff Path Review Cancelled 01/16/19 05:00 D-Dimer 3427 FEUng/mL (<500) H* 01/16/19 11:02 Sodium 138 mmol/L (136-145) 01/21/19 05:58 Potassium 3.7 mmol/L (3.5-5.1) 01/21/19 05:58 Chloride 102 mmol/L (98-107) 01/21/19 05:58 Carbon Dioxide 32 mmol/L (21-32) 01/21/19 05:58 BUN 24 mg/dL (7-18) H 01/21/19 05:58 Creatinine 0.60 mg/dL (0.55-1.3) 01/21/19 05:58 Estimated GFR > 90 mL/min (=/>90) 01/21/19 05:58 Glucose 92 mg/dL (74-106) 01/21/19 05:58 POC Glucose 95 mg/dl (65-120) 01/22/19 09:16 Calcium 8.7 mg/dL (8.5-10.1) 01/21/19 05:58 Magnesium 2.4 mg/dL (1.8-2.4) 01/21/19 05:58 NT-Pro-B Natriuret Pep 510 pg/mL (<450) H 01/16/19 11:02 Albumin 2.6 g/dL (3.4-5.0) L 01/21/19 05:58 Prealbumin 12.2 mg/dL (20-40) L 01/21/19 05:58 Urine Color Yellow 01/18/19 14:30 Urine Appearance Clear 01/18/19 14:30 Urine pH 6.5 (5.0-7.0) 01/18/19 14:30 Ur Specific [place] <=1.005 (1.005-1.030) 01/18/19 14:30 Urine Ketones Negative (NEG) 01/18/19 14:30 Urine Blood Trace (NEG) H 01/18/19 14:30 Urine Nitrite Negative (NEG) 01/18/19 14:30 Urine Bilirubin Negative (NEG) 01/18/19 14:30 Urine Urobilinogen 0.2 mg/dL (0.2-1.0) 01/18/19 14:30 Ur Leukocyte Esterase 3+ (NEG) H 01/18/19 14:30 Urine RBC <5 /HPF (NONE SEEN) 01/18/19 14:30 Urine WBC 20-50 /HPF (<5) H 01/18/19 14:30 Ur Squamous Epith Cells <5 /HPF (NONE SEEN) 01/18/19 14:30 Ur Urothelial Cells <5 /HPF (NONE SEEN) 01/16/19 03:15 Urine Bacteria <20 /HPF (<20) 01/18/19 14:30 Urine Mucus 1+ /HPF (NONE SEEN) 01/18/19 14:30 Urine Culture Reflexed Not needed 01/18/19 14:30 Urine Glucose Negative (NEG) 01/18/19 14:30 Urine Total Protein Negative (NEG) 01/18/19 14:30 Weight: 166 lb 4.8 oz Wound Present: No Closed Surgical Incision Present: Yes Negative Pressure Wound Therapy Present: No Physician Update: She has an Ecoli UTI and is on Cipro. Her labs are stable with mildly low Hgb. Prealbumin is mildly low at 12.2. She is on promod. She is walking 30' with TDWB using a rolling walker. She is doing better with her arms. Medical Issues: Ciprofloxacin 250mg BID x 7 days for UTI. DVT Prophylaxis - Xarelto 10mg Daily Pain Issues: Gabapentin 300mg BID PO. Tramadol 100mg Q4H PRN PO Functional Improvement: pt has participated well in therapy and is demonstrating progress with functional mobility. pt has demonstrated improved ability to maintain TDWB and is increasing her ambulation distance. pt is improving her stabiity and balance during stand-pivot transfers as well. pt will continue to improve with intesive PT and OT services and is expected to be able to discharge home from this setting. Summary: Patient's care plan and snf goals have been reviewed and revised as necessary. Please see the Rehabilitation Signature page for all necessary signatures.
--- NOTE | 2019-01-22 12:38 | FAST ---
ENCOUNTER DATE AND TIME: 01/22/2019 08:00 (CDT) NAME CELSO MADISON DATE OF : 1935 DATE OF ADMISSION: 01/15/2019 16:46 (CDT) PHONE: AGE: 83 SSN# [id number] GENDER: Female ENCOUNTER PHYSICIAN: Dr. Raúl Llanes M.D. ADMISSION DIAGNOSIS: - Orthopaedic Disorders 08 - Unilateral Hip Fracture (08.11) RIGHT MINIMALLY DISPLACED FEMORAL NECK FRACTURE JUST BELOW THE HEAD. EATING: Activity did not occur on this shift EATING - SCORE: 0-UNK GROOMING: Activity did not occur on this shift GROOMING - SCORE: 0-UNK BATHING: Activity did not occur on this shift BATHING - SCORE: 0-UNK DRESSING - UPPER BODY: Activity did not occur on this shift Patient is not dressing in public clothing ARTICLES SCORE Total number of steps: 0 DRESSING - UPPER BODY - SCORE: 0-UNK DRESSING - LOWER BODY: Activity did not occur on this shift Patient is not dressing in public clothing ARTICLES SCORE Total number of steps: 0 DRESSING - LOWER BODY - SCORE: 0-UNK TOILETING: Activity did not occur on this shift TOILETING - SCORE: 0-UNK BLADDER MANAGEMENT: Activity did not occur on this shift BLADDER MANAGEMENT - SCORE: 7-IND BOWEL MANAGEMENT: Activity did not occur on this shift BOWEL MANAGEMENT - SCORE: 7-IND TRANSFERS: BED, CHAIR, WHEELCHAIR: TRANSFERS: BED, CHAIR, WHEELCHAIR - STEP 1: Does the patient require assistance of a person or device, or need extra time with bed, chair, or whe elchair transfers? Yes. TRANSFERS: BED, CHAIR, WHEELCHAIR - STEP 2: Does the patient require the assistance of a helper? Yes. TRANSFERS: BED, CHAIR, WHEELCHAIR - STEP 3: How much assistance does the patient require from the helper? Steadying/guiding assistance TRANSFERS: BED, CHAIR, WHEELCHAIR - SCORE: 4-MIN TRANSFERS: TOILET: Activity did not occur on this shift TRANSFERS: TOILET - SCORE: 0-UNK TRANSFERS: SHOWER: Activity did not occur on this shift TRANSFERS: SHOWER - SCORE: 0-UNK TRANSFERS: TUB: Activity did not occur on this shift TRANSFERS: TUB - SCORE: 0-UNK LOCOMOTION: WALK: Patient walks less than 50 feet LOCOMOTION: WALK - SCORE: 1-DEP LOCOMOTION: WHEELCHAIR: LOCOMOTION: WHEELCHAIR - STEP 1: Does the patient need help to go 150 feet in a wheelchair? Yes. LOCOMOTION: WHEELCHAIR - STEP 2: How much assistance does the patient need from the helper? Only supervision, cuing, or coaxing LOCOMOTION: WHEELCHAIR - SCORE: 5-SUP LOCOMOTION: STAIRS: Activity did not occur on this shift LOCOMOTION: STAIRS - SCORE: 0-UNK COMPREHENSION: COMPREHENSION - SCORE: 0-UNK EXPRESSION EXPRESSION - SCORE: 0-UNK SOCIAL INTERACTION: SOCIAL INTERACTION - SCORE: 0-UNK PROBLEM SOLVING: PROBLEM SOLVING - SCORE: 0-UNK MEMORY: MEMORY - SCORE: 0-UNK SIGNATURE PANEL: The following modified sections: Transfers: Bed, Chair, Wheelchair - Score, Transfers: Toilet - Score , Locomotion: Walk - Score, Locomotion: Wheelchair - Score, Locomotion: Stairs - Score were [electron chitra] signed by Ileana Salazar PTA on FriJan 22 2019 12:37:44 T-0500 (Central Daylight Time)
[2019-01-22] MEDS: THIAMINE HCL 100 MG TABLET PO SCH (15:57)
[2019-01-22] MEDS: MELATONIN 3 MG TABLET PO PRN (20:48)
--- NOTE | 2019-01-22 20:48 | P.PN ---
Subjective Date of Service: 01/22/19 Chief Complaint: FEELS GOOD. SHE IS STABLE,COMFORTABLE, HAS SOME DYSPNEA WITHOUT OXYGEN. CHR DJD. SHE LOVES HER CONCOCTION MADE FROM [employer] AND SHE WILL GET IT HERE. NO CHEST PAIN. TODAY SHE IS FEELING A LOT BETTER. URINARY FREQUENCEY IS LESSER. SOME DIZZINESS FROM ABX. NO PAIN,NO FEVER. SHE IS STABLE. Physical Examination - Vital Signs Temperature: 97.5 F Blood Pressure: 136/67 Pulse: 67 Respirations: 16 Pulse Ox (%): 98 - Physical Exam General: Alert, In no apparent distress HEENT: Atraumatic, PERRLA, EOMI Neck: Supple, JVD not distended Respiratory: Clear to auscultation bilaterally, Normal air movement Cardiovascular: Regular rate/rhythm, Normal S1 S2 Gastrointestinal: Normal bowel sounds, No tenderness Musculoskeletal: No tenderness Integumentary: No rashes Neurological: Normal speech, Normal tone, Normal affect Lymphatics: No axilla or inguinal lymphadenopathy - Studies Medications List Reviewed: Yes Assessment And Plan - Current Problems (Diagnosis) (1) DJD (degenerative joint disease) Current Visit: Yes Status: Chronic Qualifiers: 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 ON AC XARELTO. Qualifiers: Encounter type: subsequent encounter (4) Dyspnea Current Visit: Yes Status: Acute Plan: CHECK BNP , D DIMER CXR ALB, ATROVENT NEBS. STABLE FOR NOW. ORDER CT ANGIO AND VENOUS DOPPLER. SHE IS POST OP. SHE MAY NOT HAVE PE BUT AT RISK FOR NOW. (5) ESBL (extended spectrum beta-lactamase) producing bacteria infection Current Visit: Yes Status: Acute Plan: IT IS MOST LIKELY CONTAMINANT. FIRST UA WAS POSITIVE BUT WAS SO CALLED CLEAN CATCH. SECOND UA I ASKED FOR SPECICATH AND WAS TOTALLY NORMAL. 3RD UA WAS POSITIVE IN REHAB BUT WAS CLEAN CATCH THAT IS NOT USUALLY CLEAN IN WOMEN. I ASKED FOR SPECICATH AND THAT IS UA POSITIVE BUT SHE REALLY HAS NO SYMPTOMS EXCEPT WBC IS MILD HIGHER. THIS IS THE ONLY REASON I WILL TREAT UNTIL CULTURE COMES BACK. POSITIVE UA WITHOUT SYMPTOMS DOES NOT NEED TREATMENT. SHE IS BETTER ON CIPRO. TO CONTINUE FOR A WEEK. ESBL WAS A COLONIZED BACTERIA IT WAS COLLECTED WHAT I CALL UN-CLEAN. SPECICATH SHOWED REGULAR E COLI AND NOT ESBL.
[2019-01-22] MEDS: BACLOFEN 10 MG TAB PO SCH (20:50)
--- NOTE | 2019-01-23 02:37 | FAST ---
SHIFT START DATE/TIME: 01/22/2019 19:00 (CDT) SHIFT END DATE/TIME: 01/23/2019 07:00 (CDT) NAME CELSO MADISON DATE OF : 1935 DATE OF ADMISSION: 01/15/2019 16:46 (CDT) PHONE: AGE: 83 SSN# [id number] GENDER: Female ENCOUNTER PHYSICIAN: Dr. Raúl Llanes M.D. ADMISSION DIAGNOSIS: - Orthopaedic Disorders 08 - Unilateral Hip Fracture (08.11) RIGHT MINIMALLY DISPLACED FEMORAL NECK FRACTURE JUST BELOW THE HEAD. EATING: Activity did not occur on this shift EATING - SCORE: 0-UNK GROOMING: Comb/brush hair Oral care Wash, rinse, and dry face Wash, rinse, and dry hands GROOMING - STEP 1: Does the patient require the assistance of a person or device, or need extra time when grooming? Yes. GROOMING - STEP 2: Does the patient require the assistance of a helper? No. The patient only requires an assistive devic e, OR takes more than reasonable time to groom, OR there is a concern for safety as the patient groom s GROOMING - SCORE: 6-DEMETRI BATHING: Activity did not occur on this shift BATHING - SCORE: 0-UNK DRESSING - UPPER BODY: Patient is not dressing in public clothing ARTICLES SCORE Total number of steps: 0 DRESSING - UPPER BODY - SCORE: 0-UNK DRESSING - LOWER BODY: Patient is not dressing in public clothing ARTICLES SCORE Total number of steps: 0 DRESSING - LOWER BODY - SCORE: 0-UNK TOILETING: TOILETING - STEP 1: Does the patient require the assistance of a person or device, or need extra time with toileting? Yes . TOILETING - STEP 2: Does the patient require the assistance of a helper? Yes. TOILETING - STEP 3: How much assistance does the patient require from the helper? Hands-on assistance from the helper TOILETING - STEP 4: Of the 3 tasks: 1) Adjusting clothing prior to use, 2) Cleansing of perineal area, 3) Adjusting clot alejandro after use; How many tasks does the patient perform WITHOUT assistance of the helper? Three tasks with steadying assistance from the helper TOILETING - SCORE: 4-MIN BLADDER MANAGEMENT: BLADDER MANAGEMENT - STEP 1: Does the patient control the bladder completely and intentionally without equipment or devices or med ications, and is always continent? No. BLADDER MANAGEMENT - STEP 2: Does the patient require the assistance of a helper? Yes. BLADDER MANAGEMENT - STEP 3: How much assistance does the patient require from the helper? Only set-up of equipment - such as plac ing it within reach of the patient or emptying a device - to maintain either satisfactory voiding pat tern or managing an external device, such as an absorbent pad, ileal device, or catheter BLADDER MANAGEMENT - SCORE: 5-SUP BOWEL MANAGEMENT: Activity did not occur on this shift BOWEL MANAGEMENT - SCORE: 7-IND TRANSFERS: BED, CHAIR, WHEELCHAIR: TRANSFERS: BED, CHAIR, WHEELCHAIR - STEP 1: Does the patient require assistance of a person or device, or need extra time with bed, chair, or whe elchair transfers? Yes. TRANSFERS: BED, CHAIR, WHEELCHAIR - STEP 2: Does the patient require the assistance of a helper? Yes. TRANSFERS: BED, CHAIR, WHEELCHAIR - STEP 3: How much assistance does the patient require from the helper? Lifting of the legs TRANSFERS: BED, CHAIR, WHEELCHAIR - STEP 4: How many legs does the patient require the helper to lift? one leg TRANSFERS: BED, CHAIR, WHEELCHAIR - SCORE: 4-MIN TRANSFERS: TOILET: TRANSFERS: TOILET - STEP 1: Does the patient require the assistance of a person or device, or need extra time with toilet transfe rs? Yes. TRANSFERS: TOILET - STEP 2: Does the patient require the assistance of a helper? Yes. TRANSFERS: TOILET - STEP 3: How much assistance does the patient require from the helper? Only supervision, cuing, coaxing, OR he lp to set out transfer equipment or to lock brakes and/or lift foot rests TRANSFERS: TOILET - SCORE: 5-SUP TRANSFERS: SHOWER: Activity did not occur on this shift TRANSFERS: SHOWER - SCORE: 0-UNK TRANSFERS: TUB: Activity did not occur on this shift TRANSFERS: TUB - SCORE: 0-UNK LOCOMOTION: WALK: Activity did not occur on this shift LOCOMOTION: WALK - SCORE: 0-UNK LOCOMOTION: WHEELCHAIR: Activity did not occur on this shift LOCOMOTION: WHEELCHAIR - SCORE: 0-UNK COMPREHENSION: COMPREHENSION: TYPE: Both COMPREHENSION - STEP 1: Does the patient require help from a person or device, or need extra time to understand complex and a bstract ideas (such as current events, finances, discharge planning, medical issues, relationships, e tc)? No. COMPREHENSION - STEP 2: Does the patient need extra time, require an assistive device (such as glasses for visual comprehensi on or a hearing aid for auditory comprehension) or does s/he have mild difficulty understanding compl ex and abstract information? Yes. COMPREHENSION - SCORE: 6-DEMETRI EXPRESSION EXPRESSION: TYPE: Both EXPRESSION - STEP 1: Does the patient require help from a person or device, or need extra time expressing complex and abst ract ideas (such as current events, finances, discharge planning, medical issues, relationships, etc) ? No. EXPRESSION - STEP 2: Does the patient need extra time, require an assistive device (such as augmentive communication syste m or a communication board), OR does s/he have mild difficulty expressing complex and abstract ideas (including mild dysarthria or mild word-find problems)? Yes. EXPRESSION - SCORE: 6-DEMETRI SOCIAL INTERACTION: SOCIAL INTERACTION - STEP 1: Does the patient require a helper to interact with others in social and therapeutic situations? No. SOCIAL INTERACTION - STEP 2: Does the patient need extra time in social situations, OR does s/he interact with staff, other patien ts, and family members ONLY in structured environments, OR does s/he require medication for social in teraction? Yes, patient needs extra time SOCIAL INTERACTION - SCORE: 6-DEMETRI PROBLEM SOLVING: PROBLEM SOLVING - STEP 1: Does the patient need help from a person or device, or need extra time to solve complex problems such as managing a checking account or confronting interpersonal problems? Yes. PROBLEM SOLVING - STEP 2: Does the patient solve basic routine problems half or more of the time? Yes. PROBLEM SOLVING - STEP 3: How often does the patient need help to solve basic routine problems? Less than 10% of the time PROBLEM SOLVING - SCORE: 5-SUP MEMORY: MEMORY - STEP 1: Does the patient need help from a person or device, or need extra time to remember frequently encount ered people, daily routines, and executing requests? No. MEMORY - STEP 2: Does the patient have slight difficulty recognizing frequently encountered people, daily routines, or executing requests without the need for repetition or using self-initiated or environmental cues to remember? Yes. MEMORY - SCORE: 6-DEMETRI
[2019-01-23] MEDS: RANITIDINE 150 MG TABLET PO SCH (06:51)
[2019-01-23] MEDS: LEVOTHYROXINE SOD 0.075 MG TAB PO SCH (06:51)
[2019-01-23] MEDS: TRAMADOL HCL 50 MG TAB PO PRN (08:35)
[2019-01-23] MEDS: JUVEN PACKET PO SCH ×2 (08:38→20:26)
[2019-01-23] MEDS: CRANBERRY FRUIT EXTRACT 200 MG CAP PO SCH ×2 (08:39→20:18)
[2019-01-23] MEDS: THIAMINE HCL 100 MG TABLET PO SCH (08:40)
[2019-01-23] MEDS: POTASSIUM CL SA 10 MEQ TAB PO SCH (08:40)
[2019-01-23] MEDS: TORSEMIDE 20 MG TAB PO SCH (08:40)
[2019-01-23] MEDS: PROMOD 30 ML DOSE PO SCH ×2 (08:41→20:19)
[2019-01-23] MEDS: GABAPENTIN 300 MG CAP PO SCH ×2 (08:41→20:18)
[2019-01-23] MEDS: CIPROFLOXACIN HCL 250 MG TAB PO SCH ×2 (08:41→20:18)
[2019-01-23] MEDS: RIVAROXABAN 10 MG TABLET PO SCH (08:41)
[2019-01-23] MEDS: LIDOCAINE 5% PATCH TOP SCH (08:42)
[2019-01-23] MEDS: MAGNESIUM OXIDE 400 MG TAB PO SCH ×2 (08:42→20:00)
--- NOTE | 2019-01-23 11:45 | P.PN ---
Subjective Date of Service: 01/23/19 Chief Complaint: FEELS GOOD. Subjective: Improving SHE IS STABLE,COMFORTABLE, HAS SOME DYSPNEA WITHOUT OXYGEN. CHR DJD. SHE LOVES HER CONCOCTION MADE FROM [employer] AND SHE WILL GET IT HERE. NO CHEST PAIN. TODAY SHE IS FEELING A LOT BETTER. URINARY FREQUENCEY IS LESSER. SOME DIZZINESS FROM ABX. NO PAIN,NO FEVER. SHE IS STABLE. NO COMPLAINTS , WALKS BETTER, STILL WEAK, THINKING OF NH FOR A WHILE. Review of Systems 10-point ROS is otherwise unremarkable General: Weakness, Malaise Physical Examination - Vital Signs Temperature: 96.8 F Blood Pressure: 110/67 Pulse: 58 Respirations: 16 Pulse Ox (%): 97 - Physical Exam General: Alert, Mild distress HEENT: Atraumatic, PERRLA, EOMI Neck: Supple, JVD not distended Respiratory: Clear to auscultation bilaterally, Normal air movement Cardiovascular: Regular rate/rhythm, Normal S1 S2 Gastrointestinal: Normal bowel sounds, No tenderness Musculoskeletal: No tenderness Integumentary: No rashes Neurological: Normal speech, Normal tone, Normal affect Lymphatics: No axilla or inguinal lymphadenopathy - Studies Medications List Reviewed: Yes Assessment And Plan - Current Problems (Diagnosis) (1) DJD (degenerative joint disease) Current Visit: Yes Status: Chronic Qualifiers: 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 ON AC XARELTO. Qualifiers: Encounter type: subsequent encounter (4) Dyspnea Current Visit: Yes Status: Acute Plan: CHECK BNP , D DIMER CXR ALB, ATROVENT NEBS. STABLE FOR NOW. ORDER CT ANGIO AND VENOUS DOPPLER. SHE IS POST OP. SHE MAY NOT HAVE PE BUT AT RISK FOR NOW. (5) ESBL (extended spectrum beta-lactamase) producing bacteria infection Current Visit: Yes Status: Acute Plan: IT IS MOST LIKELY CONTAMINANT. FIRST UA WAS POSITIVE BUT WAS SO CALLED CLEAN CATCH. SECOND UA I ASKED FOR SPECICATH AND WAS TOTALLY NORMAL. 3RD UA WAS POSITIVE IN REHAB BUT WAS CLEAN CATCH THAT IS NOT USUALLY CLEAN IN WOMEN. I ASKED FOR SPECICATH AND THAT IS UA POSITIVE BUT SHE REALLY HAS NO SYMPTOMS EXCEPT WBC IS MILD HIGHER. THIS IS THE ONLY REASON I WILL TREAT UNTIL CULTURE COMES BACK. POSITIVE UA WITHOUT SYMPTOMS DOES NOT NEED TREATMENT. SHE IS BETTER ON CIPRO. TO CONTINUE FOR A WEEK. ESBL WAS A COLONIZED BACTERIA IT WAS COLLECTED WHAT I CALL UN-CLEAN. SPECICATH SHOWED REGULAR E COLI AND NOT ESBL.
[2019-01-23] MEDS: MELATONIN 3 MG TABLET PO PRN (20:19)
[2019-01-23] MEDS: BACLOFEN 10 MG TAB PO SCH (20:19)
--- NOTE | 2019-01-24 02:35 | FAST ---
SHIFT START DATE/TIME: 01/23/2019 19:00 (CDT) SHIFT END DATE/TIME: 01/24/2019 07:00 (CDT) NAME CELSO MADISON DATE OF : 1935 DATE OF ADMISSION: 01/15/2019 16:46 (CDT) PHONE: AGE: 83 SSN# [id number] GENDER: Female ENCOUNTER PHYSICIAN: Dr. Raúl Llanes M.D. ADMISSION DIAGNOSIS: - Orthopaedic Disorders 08 - Unilateral Hip Fracture (08.11) RIGHT MINIMALLY DISPLACED FEMORAL NECK FRACTURE JUST BELOW THE HEAD. EATING: Activity did not occur on this shift EATING - SCORE: 0-UNK GROOMING: Wash, rinse, and dry hands GROOMING - STEP 1: Does the patient require the assistance of a person or device, or need extra time when grooming? Yes. GROOMING - STEP 2: Does the patient require the assistance of a helper? No. The patient only requires an assistive devic e, OR takes more than reasonable time to groom, OR there is a concern for safety as the patient groom s GROOMING - SCORE: 6-DEMETRI BATHING: Activity did not occur on this shift BATHING - SCORE: 0-UNK DRESSING - UPPER BODY: Patient is not dressing in public clothing ARTICLES SCORE Total number of steps: 0 DRESSING - UPPER BODY - SCORE: 0-UNK DRESSING - LOWER BODY: Patient is not dressing in public clothing ARTICLES SCORE Total number of steps: 0 DRESSING - LOWER BODY - SCORE: 0-UNK TOILETING: TOILETING - STEP 1: Does the patient require the assistance of a person or device, or need extra time with toileting? Yes . TOILETING - STEP 2: Does the patient require the assistance of a helper? Yes. TOILETING - STEP 3: How much assistance does the patient require from the helper? Only supervision TOILETING - SCORE: 5-SUP BLADDER MANAGEMENT: BLADDER MANAGEMENT - STEP 1: Does the patient control the bladder completely and intentionally without equipment or devices or med ications, and is always continent? No. BLADDER MANAGEMENT - STEP 2: Does the patient require the assistance of a helper? Yes. BLADDER MANAGEMENT - STEP 3: How much assistance does the patient require from the helper? Only supervision, stand-by, cuing, or c oaxing BLADDER MANAGEMENT - SCORE: 5-SUP BOWEL MANAGEMENT: BOWEL MANAGEMENT - STEP 1: Does the patient control bowels completely and intentionally without equipment devices or medications AND is always continent? No. BOWEL MANAGEMENT - STEP 2: Does the patient require the assistance of a helper? No, patient requires medication for control such as stool softeners, suppositories, laxatives, enemas, or OTC medications BOWEL MANAGEMENT - SCORE: 6-DEMETRI TRANSFERS: BED, CHAIR, WHEELCHAIR: TRANSFERS: BED, CHAIR, WHEELCHAIR - STEP 1: Does the patient require assistance of a person or device, or need extra time with bed, chair, or whe elchair transfers? Yes. TRANSFERS: BED, CHAIR, WHEELCHAIR - STEP 2: Does the patient require the assistance of a helper? Yes. TRANSFERS: BED, CHAIR, WHEELCHAIR - STEP 3: How much assistance does the patient require from the helper? Lifting of the legs TRANSFERS: BED, CHAIR, WHEELCHAIR - STEP 4: How many legs does the patient require the helper to lift? one leg TRANSFERS: BED, CHAIR, WHEELCHAIR - SCORE: 4-MIN TRANSFERS: TOILET: TRANSFERS: TOILET - STEP 1: Does the patient require the assistance of a person or device, or need extra time with toilet transfe rs? Yes. TRANSFERS: TOILET - STEP 2: Does the patient require the assistance of a helper? No. Patient only requires an assistive device banerjee ch as a grab bar or special seat, OR s/he takes more than reasonable time to perform toilet transfers , OR there is a safety concern when s/he performs toilet transfers. TRANSFERS: TOILET - SCORE: 6-DEMETRI TRANSFERS: SHOWER: Activity did not occur on this shift TRANSFERS: SHOWER - SCORE: 0-UNK TRANSFERS: TUB: Activity did not occur on this shift TRANSFERS: TUB - SCORE: 0-UNK LOCOMOTION: WALK: Activity did not occur on this shift LOCOMOTION: WALK - SCORE: 0-UNK LOCOMOTION: WHEELCHAIR: Activity did not occur on this shift LOCOMOTION: WHEELCHAIR - SCORE: 0-UNK COMPREHENSION: COMPREHENSION: TYPE: Both COMPREHENSION - STEP 1: Does the patient require help from a person or device, or need extra time to understand complex and a bstract ideas (such as current events, finances, discharge planning, medical issues, relationships, e tc)? No. COMPREHENSION - STEP 2: Does the patient need extra time, require an assistive device (such as glasses for visual comprehensi on or a hearing aid for auditory comprehension) or does s/he have mild difficulty understanding compl ex and abstract information? Yes. COMPREHENSION - SCORE: 6-DEMETRI EXPRESSION EXPRESSION: TYPE: Both EXPRESSION - STEP 1: Does the patient require help from a person or device, or need extra time expressing complex and abst ract ideas (such as current events, finances, discharge planning, medical issues, relationships, etc) ? No. EXPRESSION - STEP 2: Does the patient need extra time, require an assistive device (such as augmentive communication syste m or a communication board), OR does s/he have mild difficulty expressing complex and abstract ideas (including mild dysarthria or mild word-find problems)? No. EXPRESSION - SCORE: 7-IND SOCIAL INTERACTION: SOCIAL INTERACTION - STEP 1: Does the patient require a helper to interact with others in social and therapeutic situations? No. SOCIAL INTERACTION - STEP 2: Does the patient need extra time in social situations, OR does s/he interact with staff, other patien ts, and family members ONLY in structured environments, OR does s/he require medication for social in teraction? Yes, patient needs extra time SOCIAL INTERACTION - SCORE: 6-DEMETRI PROBLEM SOLVING: PROBLEM SOLVING - STEP 1: Does the patient need help from a person or device, or need extra time to solve complex problems such as managing a checking account or confronting interpersonal problems? No. PROBLEM SOLVING - STEP 2: Does the patient require extra time to make decisions or solve problems, OR does s/he have slight dif ficulty reading, initiating, or self-correcting in unfamiliar situations? Yes, patient needs extra ti me. PROBLEM SOLVING - SCORE: 6-DEMETRI MEMORY: MEMORY - STEP 1: Does the patient need help from a person or device, or need extra time to remember frequently encount ered people, daily routines, and executing requests? No. MEMORY - STEP 2: Does the patient have slight difficulty recognizing frequently encountered people, daily routines, or executing requests without the need for repetition or using self-initiated or environmental cues to remember? Yes. MEMORY - SCORE: 6-DEMETRI SIGNATURE PANEL: The following modified sections: Eating - Score, Grooming - Score, Dressing - Upper Body - Score, Malik ssing - Lower Body - Score, Toileting - Score, Bladder Management - Score, Bowel Management - Score, Transfers: Bed, Chair, Wheelchair - Score, Transfers: Toilet - Score, Transfers: Shower - Score, Yeung sfers: Tub - Score, Locomotion: Walk - Score, Locomotion: Wheelchair - Score, Comprehension - Score, Expression - Score, Social Interaction - Score, Problem Solving - Score, Memory - Score were [electro nically] signed by Janee Adan CNA on Sun Jan 24 2019 02:34:10 GMT-0500 (Central Daylight Time)
[2019-01-24] MEDS: LEVOTHYROXINE SOD 0.075 MG TAB PO SCH (06:49)
[2019-01-24] MEDS: RANITIDINE 150 MG TABLET PO SCH (06:49)
[2019-01-24] MEDS: LIDOCAINE 5% PATCH TOP SCH (08:30)
[2019-01-24] MEDS: MAGNESIUM OXIDE 400 MG TAB PO SCH ×2 (08:30→20:00)
[2019-01-24] MEDS: CRANBERRY FRUIT EXTRACT 200 MG CAP PO SCH ×2 (08:30→20:05)
[2019-01-24] MEDS: JUVEN PACKET PO SCH ×2 (08:30→20:06)
[2019-01-24] MEDS: CIPROFLOXACIN HCL 250 MG TAB PO SCH ×2 (08:31→20:05)
[2019-01-24] MEDS: TORSEMIDE 20 MG TAB PO SCH (08:31)
[2019-01-24] MEDS: GABAPENTIN 300 MG CAP PO SCH ×2 (08:31→20:05)
[2019-01-24] MEDS: RIVAROXABAN 10 MG TABLET PO SCH (08:32)
[2019-01-24] MEDS: THIAMINE HCL 100 MG TABLET PO SCH (08:32)
[2019-01-24] MEDS: POTASSIUM CL SA 10 MEQ TAB PO SCH (08:32)
[2019-01-24] MEDS: PROMOD 30 ML DOSE PO SCH ×2 (08:32→20:06)
--- NOTE | 2019-01-24 11:47 | P.PN ---
Subjective Date of Service: 01/24/19 Chief Complaint: FEELS GOOD. Subjective: Improving SHE IS STABLE,COMFORTABLE, HAS SOME DYSPNEA WITHOUT OXYGEN. CHR DJD. SHE LOVES HER CONCOCTION MADE FROM [employer] AND SHE WILL GET IT HERE. NO CHEST PAIN. TODAY SHE IS FEELING A LOT BETTER. URINARY FREQUENCEY IS LESSER. SOME DIZZINESS FROM ABX. NO PAIN,NO FEVER. SHE IS STABLE. NO COMPLAINTS , WALKS BETTER, STILL WEAK, THINKING OF NH FOR A WHILE. NO NEW ISSUES. Review of Systems 10-point ROS is otherwise unremarkable Physical Examination - Vital Signs Temperature: 96.8 F Blood Pressure: 121/57 Pulse: 62 Respirations: 16 Pulse Ox (%): 98 - Physical Exam General: Alert, In no apparent distress HEENT: Atraumatic, PERRLA, EOMI Neck: Supple, JVD not distended Respiratory: Clear to auscultation bilaterally, Normal air movement Cardiovascular: Regular rate/rhythm, Normal S1 S2, Edema (R LEG POST OP) Gastrointestinal: Normal bowel sounds, No tenderness Musculoskeletal: No tenderness Integumentary: No rashes Neurological: Normal speech, Normal tone, Normal affect Lymphatics: No axilla or inguinal lymphadenopathy - Studies Medications List Reviewed: Yes Assessment And Plan - Current Problems (Diagnosis) (1) DJD (degenerative joint disease) Current Visit: Yes Status: Chronic Qualifiers: 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 ON AC XARELTO. Qualifiers: Encounter type: subsequent encounter (4) Dyspnea Current Visit: Yes Status: Acute Plan: CHECK BNP , D DIMER CXR ALB, ATROVENT NEBS. STABLE FOR NOW. ORDER CT ANGIO AND VENOUS DOPPLER. SHE IS POST OP. SHE MAY NOT HAVE PE BUT AT RISK FOR NOW. (5) ESBL (extended spectrum beta-lactamase) producing bacteria infection Current Visit: Yes Status: Acute Plan: IT IS MOST LIKELY CONTAMINANT. FIRST UA WAS POSITIVE BUT WAS SO CALLED CLEAN CATCH. SECOND UA I ASKED FOR SPECICATH AND WAS TOTALLY NORMAL. 3RD UA WAS POSITIVE IN REHAB BUT WAS CLEAN CATCH THAT IS NOT USUALLY CLEAN IN WOMEN. I ASKED FOR SPECICATH AND THAT IS UA POSITIVE BUT SHE REALLY HAS NO SYMPTOMS EXCEPT WBC IS MILD HIGHER. THIS IS THE ONLY REASON I WILL TREAT UNTIL CULTURE COMES BACK. POSITIVE UA WITHOUT SYMPTOMS DOES NOT NEED TREATMENT. SHE IS BETTER ON CIPRO. TO CONTINUE FOR A WEEK. ESBL WAS A COLONIZED BACTERIA IT WAS COLLECTED WHAT I CALL UN-CLEAN. SPECICATH SHOWED REGULAR E COLI AND NOT ESBL.
[2019-01-24] MEDS: TRAMADOL HCL 50 MG TAB PO PRN ×2 (15:11→22:31)
[2019-01-24] MEDS: BACLOFEN 10 MG TAB PO SCH (20:06)
[2019-01-24] MEDS: MELATONIN 3 MG TABLET PO PRN (23:23)
[2019-01-24] MEDS ORDERED: BACLOFEN 10 MG TAB PO ONE (23:52)
[2019-01-25] MEDS ORDERED: BACLOFEN 10 MG TAB PO PRN (00:23)
--- NOTE | 2019-01-25 01:43 | FAST ---
SHIFT START DATE/TIME: 01/24/2019 19:00 (CDT) SHIFT END DATE/TIME: 01/25/2019 07:00 (CDT) NAME CELSO MADISON DATE OF : 1935 DATE OF ADMISSION: 01/15/2019 16:46 (CDT) PHONE: AGE: 83 SSN# [id number] GENDER: Female ENCOUNTER PHYSICIAN: Dr. Raúl Llanes M.D. ADMISSION DIAGNOSIS: - Orthopaedic Disorders 08 - Unilateral Hip Fracture (08.11) RIGHT MINIMALLY DISPLACED FEMORAL NECK FRACTURE JUST BELOW THE HEAD. EATING: Activity did not occur on this shift EATING - SCORE: 0-UNK GROOMING: Wash, rinse, and dry hands GROOMING - STEP 1: Does the patient require the assistance of a person or device, or need extra time when grooming? Yes. GROOMING - STEP 2: Does the patient require the assistance of a helper? Yes. GROOMING - STEP 3: How much assistance does the patient require from the helper? Only prior equipment preparation/set up from the helper GROOMING - SCORE: 5-SUP BATHING: Activity did not occur on this shift BATHING - SCORE: 0-UNK DRESSING - UPPER BODY: Patient is not dressing in public clothing ARTICLES SCORE Total number of steps: 0 DRESSING - UPPER BODY - SCORE: 0-UNK DRESSING - LOWER BODY: Patient is not dressing in public clothing ARTICLES SCORE Total number of steps: 0 DRESSING - LOWER BODY - SCORE: 0-UNK TOILETING: TOILETING - STEP 1: Does the patient require the assistance of a person or device, or need extra time with toileting? Yes . TOILETING - STEP 2: Does the patient require the assistance of a helper? Yes. TOILETING - STEP 3: How much assistance does the patient require from the helper? Only supervision TOILETING - SCORE: 5-SUP BLADDER MANAGEMENT: BLADDER MANAGEMENT - STEP 1: Does the patient control the bladder completely and intentionally without equipment or devices or med ications, and is always continent? No. BLADDER MANAGEMENT - STEP 2: Does the patient require the assistance of a helper? No, patient requires and independently uses an a ssistive device, such as a urinal, bedpan, bedside commode, catheter, absorbent pad, or collecting de vice BLADDER MANAGEMENT - SCORE: 6-DEMETRI BOWEL MANAGEMENT: BOWEL MANAGEMENT - STEP 1: Does the patient control bowels completely and intentionally without equipment devices or medications AND is always continent? No. BOWEL MANAGEMENT - STEP 2: Does the patient require the assistance of a helper? No, patient requires medication for control such as stool softeners, suppositories, laxatives, enemas, or OTC medications BOWEL MANAGEMENT - SCORE: 6-DEMETRI TRANSFERS: BED, CHAIR, WHEELCHAIR: TRANSFERS: BED, CHAIR, WHEELCHAIR - STEP 1: Does the patient require assistance of a person or device, or need extra time with bed, chair, or whe elchair transfers? Yes. TRANSFERS: BED, CHAIR, WHEELCHAIR - STEP 2: Does the patient require the assistance of a helper? Yes. TRANSFERS: BED, CHAIR, WHEELCHAIR - STEP 3: How much assistance does the patient require from the helper? Steadying/guiding assistance TRANSFERS: BED, CHAIR, WHEELCHAIR - SCORE: 4-MIN TRANSFERS: TOILET: TRANSFERS: TOILET - STEP 1: Does the patient require the assistance of a person or device, or need extra time with toilet transfe rs? Yes. TRANSFERS: TOILET - STEP 2: Does the patient require the assistance of a helper? Yes. TRANSFERS: TOILET - STEP 3: How much assistance does the patient require from the helper? Only supervision, cuing, coaxing, OR he lp to set out transfer equipment or to lock brakes and/or lift foot rests TRANSFERS: TOILET - SCORE: 5-SUP TRANSFERS: SHOWER: Activity did not occur on this shift TRANSFERS: SHOWER - SCORE: 0-UNK TRANSFERS: TUB: Activity did not occur on this shift TRANSFERS: TUB - SCORE: 0-UNK LOCOMOTION: WALK: Activity did not occur on this shift LOCOMOTION: WALK - SCORE: 0-UNK LOCOMOTION: WHEELCHAIR: Activity did not occur on this shift LOCOMOTION: WHEELCHAIR - SCORE: 0-UNK COMPREHENSION: COMPREHENSION: TYPE: Both COMPREHENSION - STEP 1: Does the patient require help from a person or device, or need extra time to understand complex and a bstract ideas (such as current events, finances, discharge planning, medical issues, relationships, e tc)? No. COMPREHENSION - STEP 2: Does the patient need extra time, require an assistive device (such as glasses for visual comprehensi on or a hearing aid for auditory comprehension) or does s/he have mild difficulty understanding compl ex and abstract information? Yes. COMPREHENSION - SCORE: 6-DEMETRI EXPRESSION EXPRESSION: TYPE: Both EXPRESSION - STEP 1: Does the patient require help from a person or device, or need extra time expressing complex and abst ract ideas (such as current events, finances, discharge planning, medical issues, relationships, etc) ? No. EXPRESSION - STEP 2: Does the patient need extra time, require an assistive device (such as augmentive communication syste m or a communication board), OR does s/he have mild difficulty expressing complex and abstract ideas (including mild dysarthria or mild word-find problems)? No. EXPRESSION - SCORE: 7-IND SOCIAL INTERACTION: SOCIAL INTERACTION - STEP 1: Does the patient require a helper to interact with others in social and therapeutic situations? No. SOCIAL INTERACTION - STEP 2: Does the patient need extra time in social situations, OR does s/he interact with staff, other patien ts, and family members ONLY in structured environments, OR does s/he require medication for social in teraction? Yes, patient needs extra time SOCIAL INTERACTION - SCORE: 6-DEMETRI PROBLEM SOLVING: PROBLEM SOLVING - STEP 1: Does the patient need help from a person or device, or need extra time to solve complex problems such as managing a checking account or confronting interpersonal problems? No. PROBLEM SOLVING - STEP 2: Does the patient require extra time to make decisions or solve problems, OR does s/he have slight dif ficulty reading, initiating, or self-correcting in unfamiliar situations? Yes, patient needs extra ti me. PROBLEM SOLVING - SCORE: 6-DEMETRI MEMORY: MEMORY - STEP 1: Does the patient need help from a person or device, or need extra time to remember frequently encount ered people, daily routines, and executing requests? No. MEMORY - STEP 2: Does the patient have slight difficulty recognizing frequently encountered people, daily routines, or executing requests without the need for repetition or using self-initiated or environmental cues to remember? Yes. MEMORY - SCORE: 6-DEMETRI SIGNATURE PANEL: The following modified sections: Eating - Score, Grooming - Score, Dressing - Upper Body - Score, Malik ssing - Lower Body - Score, Toileting - Score, Bladder Management - Score, Bowel Management - Score, Transfers: Bed, Chair, Wheelchair - Score, Transfers: Toilet - Score, Transfers: Shower - Score, Yeung sfers: Tub - Score, Locomotion: Walk - Score, Locomotion: Wheelchair - Score, Comprehension - Score, Expression - Score, Social Interaction - Score, Problem Solving - Score, Memory - Score were [electro nically] signed by Janee Adan CNA on FriJan 25 2019 01:42:46 GMT-0500 (Central Daylight Time)
[2019-01-25] MEDS: RANITIDINE 150 MG TABLET PO SCH (06:54)
[2019-01-25] MEDS: LEVOTHYROXINE SOD 0.075 MG TAB PO SCH (06:54)
--- NOTE | 2019-01-25 08:36 | FAST ---
ENCOUNTER DATE AND TIME: 01/25/2019 08:00 (CDT) NAME CELSO MADISON DATE OF : 1935 DATE OF ADMISSION: 01/15/2019 16:46 (CDT) PHONE: AGE: 83 N# [id number] GENDER: Female ENCOUNTER PHYSICIAN: Dr. Raúl Llanes M.D. ADMISSION DIAGNOSIS: - Orthopaedic Disorders 08 - Unilateral Hip Fracture (08.11) RIGHT MINIMALLY DISPLACED FEMORAL NECK FRACTURE JUST BELOW THE HEAD. EATING: EATING - STEP 1: Does the patient require the assistance of a person or device, or need extra time when eating? No. EATING - SCORE: 7-IND GROOMING: Comb/brush hair Oral care Wash, rinse, and dry face Wash, rinse, and dry hands GROOMING - STEP 1: Does the patient require the assistance of a person or device, or need extra time when grooming? No. GROOMING - SCORE: 7-IND BATHING: Abdomen Buttocks Chest Left arm Left lower leg and foot Left upper leg Perineal area Right arm Right lower leg and foot Right upper leg BATHING - STEP 1: Does the patient require the assistance of a person or device, or need extra time when bathing? Yes. BATHING - STEP 2: Does the patient require the assistance of a helper? Yes. BATHING - STEP 3: How much assistance does the patient require from the helper? Only supervision, cuing, coaxing, instr uctions, encouragement BATHING - SCORE: 5-SUP DRESSING - UPPER BODY: T-shirt/pullover shirt (four steps) ARTICLES SCORE Total number of steps: 4 DRESSING - UPPER BODY - STEP 1: Does the patient require help from a person or device, or need extra time when dressing above the coni st? No. DRESSING - UPPER BODY - SCORE: 7-IND DRESSING - LOWER BODY: Elastic waist pants (three steps) Slip-on shoe - Left foot (one step) Slip-on shoe - Right foot (one step) Underwear (three steps) ARTICLES SCORE Total number of steps: 8 DRESSING - LOWER BODY - STEP 1: Does the patient require help from a person or device, or need extra time when dressing below the coni st? Yes. DRESSING - LOWER BODY - STEP 2: Does the patient require the assistance of a helper? Yes. DRESSING - LOWER BODY - STEP 3: Does the helper touch the patient while dressing? No. DRESSING - LOWER BODY - SCORE: 5-SUP TOILETING: TOILETING - STEP 1: Does the patient require the assistance of a person or device, or need extra time with toileting? Yes . TOILETING - STEP 2: Does the patient require the assistance of a helper? Yes. TOILETING - STEP 3: How much assistance does the patient require from the helper? Only supervision TOILETING - SCORE: 5-SUP BLADDER MANAGEMENT: Activity did not occur on this shift BLADDER MANAGEMENT - SCORE: 7-IND BOWEL MANAGEMENT: Activity did not occur on this shift BOWEL MANAGEMENT - SCORE: 7-IND TRANSFERS: BED, CHAIR, WHEELCHAIR: Activity did not occur on this shift TRANSFERS: BED, CHAIR, WHEELCHAIR - SCORE: 0-UNK TRANSFERS: TOILET: TRANSFERS: TOILET - STEP 1: Does the patient require the assistance of a person or device, or need extra time with toilet transfe rs? Yes. TRANSFERS: TOILET - STEP 2: Does the patient require the assistance of a helper? Yes. TRANSFERS: TOILET - STEP 3: How much assistance does the patient require from the helper? Only supervision, cuing, coaxing, OR he lp to set out transfer equipment or to lock brakes and/or lift foot rests TRANSFERS: TOILET - SCORE: 5-SUP TRANSFERS: SHOWER: Activity did not occur on this shift TRANSFERS: SHOWER - SCORE: 0-UNK TRANSFERS: TUB: TRANSFERS: TUB - STEP 1: Does the patient require the assistance of a person or device, or need extra time with tub transfers? Yes. TRANSFERS: TUB - STEP 2: Does the patient require the assistance of a helper? Yes. TRANSFERS: TUB - STEP 3: How much assistance does the patient require from the helper? Only supervision, cuing, coaxing, or he lp to set out transfer equipment or to lock brakes and/or lift foot rests TRANSFERS: TUB - SCORE: 5-SUP LOCOMOTION: WALK: Activity did not occur on this shift LOCOMOTION: WALK - SCORE: 0-UNK LOCOMOTION: WHEELCHAIR: Activity did not occur on this shift LOCOMOTION: WHEELCHAIR - SCORE: 0-UNK LOCOMOTION: STAIRS: Activity did not occur on this shift LOCOMOTION: STAIRS - SCORE: 0-UNK COMPREHENSION: COMPREHENSION: TYPE: Both COMPREHENSION - STEP 1: Does the patient require help from a person or device, or need extra time to understand complex and a bstract ideas (such as current events, finances, discharge planning, medical issues, relationships, e tc)? No. COMPREHENSION - STEP 2: Does the patient need extra time, require an assistive device (such as glasses for visual comprehensi on or a hearing aid for auditory comprehension) or does s/he have mild difficulty understanding compl ex and abstract information? No. COMPREHENSION - SCORE: 7-IND EXPRESSION EXPRESSION: TYPE: Both EXPRESSION - STEP 1: Does the patient require help from a person or device, or need extra time expressing complex and abst ract ideas (such as current events, finances, discharge planning, medical issues, relationships, etc) ? No. EXPRESSION - STEP 2: Does the patient need extra time, require an assistive device (such as augmentive communication syste m or a communication board), OR does s/he have mild difficulty expressing complex and abstract ideas (including mild dysarthria or mild word-find problems)? No. EXPRESSION - SCORE: 7-IND SOCIAL INTERACTION: SOCIAL INTERACTION - STEP 1: Does the patient require a helper to interact with others in social and therapeutic situations? No. SOCIAL INTERACTION - STEP 2: Does the patient need extra time in social situations, OR does s/he interact with staff, other patien ts, and family members ONLY in structured environments, OR does s/he require medication for social in teraction? No. SOCIAL INTERACTION - SCORE: 7-IND PROBLEM SOLVING: PROBLEM SOLVING - STEP 1: Does the patient need help from a person or device, or need extra time to solve complex problems such as managing a checking account or confronting interpersonal problems? No. PROBLEM SOLVING - STEP 2: Does the patient require extra time to make decisions or solve problems, OR does s/he have slight dif ficulty reading, initiating, or self-correcting in unfamiliar situations? Yes, patient needs extra ti me. PROBLEM SOLVING - SCORE: 6-DEMETRI MEMORY: MEMORY - STEP 1: Does the patient need help from a person or device, or need extra time to remember frequently encount ered people, daily routines, and executing requests? No. MEMORY - STEP 2: Does the patient have slight difficulty recognizing frequently encountered people, daily routines, or executing requests without the need for repetition or using self-initiated or environmental cues to remember? Yes. MEMORY - SCORE: 6-DEMETRI SIGNATURE PANEL: The following modified sections: Eating - Score, Grooming - Score, Bathing - Score, Dressing - Upper Body - Score, Dressing - Lower Body - Score, Toileting - Score, Transfers: Bed, Chair, Wheelchair - S core, Transfers: Toilet - Score, Transfers: Shower - Score, Transfers: Tub - Score, Comprehension - S core, Expression - Score, Social Interaction - Score, Problem Solving - Score, Memory - Score were [e lectronically] signed by Jenelle Allen OT on FriJan 25 2019 08:34:42 GMT-0500 (Central Daylight T ivan)
[2019-01-25] MEDS: CIPROFLOXACIN HCL 250 MG TAB PO SCH (08:48)
[2019-01-25] MEDS: POTASSIUM CL SA 10 MEQ TAB PO SCH (08:48)
[2019-01-25] MEDS: LIDOCAINE 5% PATCH TOP SCH (08:48)
[2019-01-25] MEDS: CRANBERRY FRUIT EXTRACT 200 MG CAP PO SCH ×2 (08:49→19:34)
[2019-01-25] MEDS: TORSEMIDE 20 MG TAB PO SCH (08:49)
[2019-01-25] MEDS: GABAPENTIN 300 MG CAP PO SCH ×2 (08:49→19:34)
[2019-01-25] MEDS: THIAMINE HCL 100 MG TABLET PO SCH (08:49)
[2019-01-25] MEDS: RIVAROXABAN 10 MG TABLET PO SCH (08:50)
[2019-01-25] MEDS: MAGNESIUM OXIDE 400 MG TAB PO SCH ×2 (08:50→19:35)
[2019-01-25] MEDS: JUVEN PACKET PO SCH ×2 (08:50→19:35)
[2019-01-25] MEDS: PROMOD 30 ML DOSE PO SCH ×2 (08:50→19:35)
[2019-01-25] MEDS: TRAMADOL HCL 50 MG TAB PO PRN ×3 (08:54→19:41)
--- NOTE | 2019-01-25 09:55 | P.PN ---
Subjective Date of Service: 01/25/19 Chief Complaint: FEELS GOOD. Subjective: Improving SHE IS STABLE,COMFORTABLE, HAS SOME DYSPNEA WITHOUT OXYGEN. CHR DJD. SHE LOVES HER CONCOCTION MADE FROM [employer] AND SHE WILL GET IT HERE. NO CHEST PAIN. TODAY SHE IS FEELING A LOT BETTER. URINARY FREQUENCEY IS LESSER. SOME DIZZINESS FROM ABX. NO PAIN,NO FEVER. SHE IS STABLE. NO COMPLAINTS , WALKS BETTER, STILL WEAK, THINKING OF NH FOR A WHILE. NO NEW ISSUES. Review of Systems 10-point ROS is otherwise unremarkable Physical Examination - Vital Signs Temperature: 97.2 F Blood Pressure: 121/56 Pulse: 73 Respirations: 14 Pulse Ox (%): 97 - Physical Exam General: Alert, In no apparent distress HEENT: Atraumatic, PERRLA, EOMI Neck: Supple, JVD not distended Respiratory: Clear to auscultation bilaterally, Normal air movement Cardiovascular: Regular rate/rhythm, Normal S1 S2 Gastrointestinal: Normal bowel sounds, No tenderness Musculoskeletal: No tenderness Integumentary: No rashes Neurological: Normal speech, Normal tone, Normal affect Lymphatics: No axilla or inguinal lymphadenopathy - Studies Medications List Reviewed: Yes Assessment And Plan - Current Problems (Diagnosis) (1) DJD (degenerative joint disease) Current Visit: Yes Status: Chronic Plan: 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 SHE WILL AVOID NSAIDS. 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 ON AC XARELTO. Qualifiers: Encounter type: subsequent encounter (4) Dyspnea Current Visit: Yes Status: Acute Plan: CHECK BNP , D DIMER CXR ALB, ATROVENT NEBS. STABLE FOR NOW. ORDER CT ANGIO AND VENOUS DOPPLER. SHE IS POST OP. SHE MAY NOT HAVE PE BUT AT RISK FOR NOW. (5) ESBL (extended spectrum beta-lactamase) producing bacteria infection Current Visit: Yes Status: Acute Plan: IT IS MOST LIKELY CONTAMINANT. FIRST UA WAS POSITIVE BUT WAS SO CALLED CLEAN CATCH. SECOND UA I ASKED FOR SPECICATH AND WAS TOTALLY NORMAL. 3RD UA WAS POSITIVE IN REHAB BUT WAS CLEAN CATCH THAT IS NOT USUALLY CLEAN IN WOMEN. I ASKED FOR SPECICATH AND THAT IS UA POSITIVE BUT SHE REALLY HAS NO SYMPTOMS EXCEPT WBC IS MILD HIGHER. THIS IS THE ONLY REASON I WILL TREAT UNTIL CULTURE COMES BACK. POSITIVE UA WITHOUT SYMPTOMS DOES NOT NEED TREATMENT. SHE IS BETTER ON CIPRO. TO CONTINUE FOR A WEEK. ESBL WAS A COLONIZED BACTERIA IT WAS COLLECTED WHAT I CALL UN-CLEAN. SPECICATH SHOWED REGULAR E COLI AND NOT ESBL.
[2019-01-25 15:24] LABS: Urine Appearance CLEAR; Urine Bilirubin NEGATIVE (NEG); Urine Blood NEGATIVE (NEG); Urine Color YELLOW; Urine Glucose NEGATIVE (NEG); Urine Protein NEGATIVE (NEG); Urine Urobilinogen 0.2 mg/dL (0.2-1.0)
--- NOTE | 2019-01-25 15:30 | FAST ---
SHIFT START DATE/TIME: 01/25/2019 07:00 (CDT) SHIFT END DATE/TIME: 01/25/2019 19:00 (CDT) NAME CELSO MADISON DATE OF : 1935 DATE OF ADMISSION: 01/15/2019 16:46 (CDT) PHONE: AGE: 83 SSN# [id number] GENDER: Female ENCOUNTER PHYSICIAN: Dr. Raúl Llanes M.D. ADMISSION DIAGNOSIS: - Orthopaedic Disorders 08 - Unilateral Hip Fracture (08.11) RIGHT MINIMALLY DISPLACED FEMORAL NECK FRACTURE JUST BELOW THE HEAD. EATING: EATING - STEP 1: Does the patient require the assistance of a person or device, or need extra time when eating? Yes. EATING - STEP 2: Does the patient require the assistance of a helper? No, patient only requires an assistive device, O R s/he takes more than reasonable time to eat, OR there is a safety concern, OR s/he requires modifie d food consistency EATING - SCORE: 6-DEMETRI GROOMING: Activity did not occur on this shift GROOMING - SCORE: 0-UNK BATHING: Activity did not occur on this shift BATHING - SCORE: 0-UNK DRESSING - UPPER BODY: Activity did not occur on this shift ARTICLES SCORE Total number of steps: 0 DRESSING - UPPER BODY - SCORE: 0-UNK DRESSING - LOWER BODY: Activity did not occur on this shift ARTICLES SCORE Total number of steps: 0 DRESSING - LOWER BODY - SCORE: 0-UNK TOILETING: TOILETING - STEP 1: Does the patient require the assistance of a person or device, or need extra time with toileting? Yes . TOILETING - STEP 2: Does the patient require the assistance of a helper? Yes. TOILETING - STEP 3: How much assistance does the patient require from the helper? Only supervision TOILETING - SCORE: 5-SUP BLADDER MANAGEMENT: BLADDER MANAGEMENT - STEP 1: Does the patient control the bladder completely and intentionally without equipment or devices or med ications, and is always continent? No. BLADDER MANAGEMENT - STEP 2: Does the patient require the assistance of a helper? No, patient requires and independently uses an a ssistive device, such as a urinal, bedpan, bedside commode, catheter, absorbent pad, or collecting de vice BLADDER MANAGEMENT - SCORE: 6-DEMETRI BOWEL MANAGEMENT: Activity did not occur on this shift BOWEL MANAGEMENT - SCORE: 7-IND TRANSFERS: BED, CHAIR, WHEELCHAIR: TRANSFERS: BED, CHAIR, WHEELCHAIR - STEP 1: Does the patient require assistance of a person or device, or need extra time with bed, chair, or whe elchair transfers? Yes. TRANSFERS: BED, CHAIR, WHEELCHAIR - STEP 2: Does the patient require the assistance of a helper? Yes. TRANSFERS: BED, CHAIR, WHEELCHAIR - STEP 3: How much assistance does the patient require from the helper? Steadying/guiding assistance TRANSFERS: BED, CHAIR, WHEELCHAIR - SCORE: 4-MIN TRANSFERS: TOILET: TRANSFERS: TOILET - STEP 1: Does the patient require the assistance of a person or device, or need extra time with toilet transfe rs? Yes. TRANSFERS: TOILET - STEP 2: Does the patient require the assistance of a helper? Yes. TRANSFERS: TOILET - STEP 3: How much assistance does the patient require from the helper? Patient performs half or more of the tr ansferring tasks TRANSFERS: TOILET - STEP 4: Does the patient need only incidental help such as contact guard or steadying during toilet transfer? Yes. TRANSFERS: TOILET - SCORE: 4-MIN TRANSFERS: SHOWER: Activity did not occur on this shift TRANSFERS: SHOWER - SCORE: 0-UNK TRANSFERS: TUB: Activity did not occur on this shift TRANSFERS: TUB - SCORE: 0-UNK LOCOMOTION: WALK: Activity did not occur on this shift LOCOMOTION: WALK - SCORE: 0-UNK LOCOMOTION: WHEELCHAIR: Activity did not occur on this shift LOCOMOTION: WHEELCHAIR - SCORE: 0-UNK COMPREHENSION: COMPREHENSION: TYPE: Both COMPREHENSION - STEP 1: Does the patient require help from a person or device, or need extra time to understand complex and a bstract ideas (such as current events, finances, discharge planning, medical issues, relationships, e tc)? No. COMPREHENSION - STEP 2: Does the patient need extra time, require an assistive device (such as glasses for visual comprehensi on or a hearing aid for auditory comprehension) or does s/he have mild difficulty understanding compl ex and abstract information? Yes. COMPREHENSION - SCORE: 6-DEMETRI EXPRESSION EXPRESSION: TYPE: Both EXPRESSION - STEP 1: Does the patient require help from a person or device, or need extra time expressing complex and abst ract ideas (such as current events, finances, discharge planning, medical issues, relationships, etc) ? No. EXPRESSION - STEP 2: Does the patient need extra time, require an assistive device (such as augmentive communication syste m or a communication board), OR does s/he have mild difficulty expressing complex and abstract ideas (including mild dysarthria or mild word-find problems)? Yes. EXPRESSION - SCORE: 6-DEMETRI SOCIAL INTERACTION: SOCIAL INTERACTION - STEP 1: Does the patient require a helper to interact with others in social and therapeutic situations? No. SOCIAL INTERACTION - STEP 2: Does the patient need extra time in social situations, OR does s/he interact with staff, other patien ts, and family members ONLY in structured environments, OR does s/he require medication for social in teraction? Yes, patient needs extra time SOCIAL INTERACTION - SCORE: 6-DEMETRI PROBLEM SOLVING: PROBLEM SOLVING - STEP 1: Does the patient need help from a person or device, or need extra time to solve complex problems such as managing a checking account or confronting interpersonal problems? No. PROBLEM SOLVING - STEP 2: Does the patient require extra time to make decisions or solve problems, OR does s/he have slight dif ficulty reading, initiating, or self-correcting in unfamiliar situations? Yes, patient needs extra ti me. PROBLEM SOLVING - SCORE: 6-DEMETRI MEMORY: MEMORY - STEP 1: Does the patient need help from a person or device, or need extra time to remember frequently encount ered people, daily routines, and executing requests? No. MEMORY - STEP 2: Does the patient have slight difficulty recognizing frequently encountered people, daily routines, or executing requests without the need for repetition or using self-initiated or environmental cues to remember? Yes. MEMORY - SCORE: 6-DEMETRI SIGNATURE PANEL: The following modified sections: Eating - Score, Grooming - Score, Bathing - Score, Dressing - Upper Body - Score, Dressing - Lower Body - Score, Toileting - Score, Bladder Management - Score, Bowel Man agement - Score, Transfers: Bed, Chair, Wheelchair - Score, Transfers: Toilet - Score, Transfers: Maggi wer - Score, Transfers: Tub - Score, Locomotion: Walk - Score, Locomotion: Wheelchair - Score, Compre hension - Score, Expression - Score, Social Interaction - Score, Problem Solving - Score, Memory - Sc ore were [electronically] signed by Romeo Mcrae on FriJan 25 2019 15:28:34 GMT-0500 (Central Daylight Time)
[2019-01-25 16:39] LABS: Urine Culture Reflex Order NOT NEEDED
[2019-01-25 16:40] LABS: Urine Bacteria <20 /HPF (<20); Urine RBC <5 /HPF (NONE SEEN)
[2019-01-25] MEDS: BACLOFEN 10 MG TAB PO SCH (19:34)
--- NOTE | 2019-01-26 01:20 | FAST ---
SHIFT START DATE/TIME: 01/25/2019 19:00 (CDT) SHIFT END DATE/TIME: 01/26/2019 07:00 (CDT) NAME CELSO MADISON DATE OF : 1935 DATE OF ADMISSION: 01/15/2019 16:46 (CDT) PHONE: AGE: 83 SSN# [id number] GENDER: Female ENCOUNTER PHYSICIAN: Dr. Raúl Llanes M.D. ADMISSION DIAGNOSIS: - Orthopaedic Disorders 08 - Unilateral Hip Fracture (08.11) RIGHT MINIMALLY DISPLACED FEMORAL NECK FRACTURE JUST BELOW THE HEAD. EATING: Activity did not occur on this shift EATING - SCORE: 0-UNK GROOMING: Oral care Wash, rinse, and dry hands GROOMING - STEP 1: Does the patient require the assistance of a person or device, or need extra time when grooming? Yes. GROOMING - STEP 2: Does the patient require the assistance of a helper? Yes. GROOMING - STEP 3: How much assistance does the patient require from the helper? Only prior equipment preparation/set up from the helper GROOMING - SCORE: 5-SUP BATHING: Activity did not occur on this shift BATHING - SCORE: 0-UNK DRESSING - UPPER BODY: Patient is not dressing in public clothing ARTICLES SCORE Total number of steps: 0 DRESSING - UPPER BODY - SCORE: 0-UNK DRESSING - LOWER BODY: Patient is not dressing in public clothing ARTICLES SCORE Total number of steps: 0 DRESSING - LOWER BODY - SCORE: 0-UNK TOILETING: TOILETING - STEP 1: Does the patient require the assistance of a person or device, or need extra time with toileting? Yes . TOILETING - STEP 2: Does the patient require the assistance of a helper? Yes. TOILETING - STEP 3: How much assistance does the patient require from the helper? Only supervision TOILETING - SCORE: 5-SUP BLADDER MANAGEMENT: BLADDER MANAGEMENT - STEP 1: Does the patient control the bladder completely and intentionally without equipment or devices or med ications, and is always continent? No. BLADDER MANAGEMENT - STEP 2: Does the patient require the assistance of a helper? No, patient requires and independently uses an a ssistive device, such as a urinal, bedpan, bedside commode, catheter, absorbent pad, or collecting de vice BLADDER MANAGEMENT - SCORE: 6-DEMETRI BOWEL MANAGEMENT: BOWEL MANAGEMENT - STEP 1: Does the patient control bowels completely and intentionally without equipment devices or medications AND is always continent? No. BOWEL MANAGEMENT - STEP 2: Does the patient require the assistance of a helper? No, patient requires medication for control such as stool softeners, suppositories, laxatives, enemas, or OTC medications BOWEL MANAGEMENT - SCORE: 6-DEMETRI TRANSFERS: BED, CHAIR, WHEELCHAIR: TRANSFERS: BED, CHAIR, WHEELCHAIR - STEP 1: Does the patient require assistance of a person or device, or need extra time with bed, chair, or whe elchair transfers? Yes. TRANSFERS: BED, CHAIR, WHEELCHAIR - STEP 2: Does the patient require the assistance of a helper? Yes. TRANSFERS: BED, CHAIR, WHEELCHAIR - STEP 3: How much assistance does the patient require from the helper? Steadying/guiding assistance TRANSFERS: BED, CHAIR, WHEELCHAIR - SCORE: 4-MIN TRANSFERS: TOILET: TRANSFERS: TOILET - STEP 1: Does the patient require the assistance of a person or device, or need extra time with toilet transfe rs? Yes. TRANSFERS: TOILET - STEP 2: Does the patient require the assistance of a helper? No. Patient only requires an assistive device banerjee ch as a grab bar or special seat, OR s/he takes more than reasonable time to perform toilet transfers , OR there is a safety concern when s/he performs toilet transfers. TRANSFERS: TOILET - SCORE: 6-DEMETRI TRANSFERS: SHOWER: Activity did not occur on this shift TRANSFERS: SHOWER - SCORE: 0-UNK TRANSFERS: TUB: Activity did not occur on this shift TRANSFERS: TUB - SCORE: 0-UNK LOCOMOTION: WALK: Activity did not occur on this shift LOCOMOTION: WALK - SCORE: 0-UNK LOCOMOTION: WHEELCHAIR: Activity did not occur on this shift LOCOMOTION: WHEELCHAIR - SCORE: 0-UNK COMPREHENSION: COMPREHENSION: TYPE: Both COMPREHENSION - STEP 1: Does the patient require help from a person or device, or need extra time to understand complex and a bstract ideas (such as current events, finances, discharge planning, medical issues, relationships, e tc)? No. COMPREHENSION - STEP 2: Does the patient need extra time, require an assistive device (such as glasses for visual comprehensi on or a hearing aid for auditory comprehension) or does s/he have mild difficulty understanding compl ex and abstract information? Yes. COMPREHENSION - SCORE: 6-DEMETRI EXPRESSION EXPRESSION: TYPE: Both EXPRESSION - STEP 1: Does the patient require help from a person or device, or need extra time expressing complex and abst ract ideas (such as current events, finances, discharge planning, medical issues, relationships, etc) ? No. EXPRESSION - STEP 2: Does the patient need extra time, require an assistive device (such as augmentive communication syste m or a communication board), OR does s/he have mild difficulty expressing complex and abstract ideas (including mild dysarthria or mild word-find problems)? No. EXPRESSION - SCORE: 7-IND SOCIAL INTERACTION: SOCIAL INTERACTION - STEP 1: Does the patient require a helper to interact with others in social and therapeutic situations? No. SOCIAL INTERACTION - STEP 2: Does the patient need extra time in social situations, OR does s/he interact with staff, other patien ts, and family members ONLY in structured environments, OR does s/he require medication for social in teraction? Yes, patient needs extra time SOCIAL INTERACTION - SCORE: 6-DEMETRI PROBLEM SOLVING: PROBLEM SOLVING - STEP 1: Does the patient need help from a person or device, or need extra time to solve complex problems such as managing a checking account or confronting interpersonal problems? Yes. PROBLEM SOLVING - STEP 2: Does the patient solve basic routine problems half or more of the time? Yes. PROBLEM SOLVING - STEP 3: How often does the patient need help to solve basic routine problems? Less than 10% of the time PROBLEM SOLVING - SCORE: 5-SUP MEMORY: MEMORY - STEP 1: Does the patient need help from a person or device, or need extra time to remember frequently encount ered people, daily routines, and executing requests? No. MEMORY - STEP 2: Does the patient have slight difficulty recognizing frequently encountered people, daily routines, or executing requests without the need for repetition or using self-initiated or environmental cues to remember? Yes. MEMORY - SCORE: 6-DEMETRI SIGNATURE PANEL: The following modified sections: Eating - Score, Grooming - Score, Dressing - Upper Body - Score, Malik ssing - Lower Body - Score, Toileting - Score, Bladder Management - Score, Bowel Management - Score, Transfers: Bed, Chair, Wheelchair - Score, Transfers: Toilet - Score, Transfers: Shower - Score, Yeung sfers: Tub - Score, Locomotion: Walk - Score, Locomotion: Wheelchair - Score, Comprehension - Score, Expression - Score, Social Interaction - Score, Problem Solving - Score, Memory - Score were [electro nically] signed by Janee Adan CNA on FriJan 26 2019 01:19:41 GMT-0500 (Central Daylight Time)
[2019-01-26] MEDS: LEVOTHYROXINE SOD 0.075 MG TAB PO SCH (07:16)
[2019-01-26] MEDS: RANITIDINE 150 MG TABLET PO SCH ×2 (07:17→18:59)
[2019-01-26] MEDS: MAGNESIUM OXIDE 400 MG TAB PO SCH ×2 (08:00→18:59)
[2019-01-26] MEDS: LIDOCAINE 5% PATCH TOP SCH (08:36)
[2019-01-26] MEDS: CRANBERRY FRUIT EXTRACT 200 MG CAP PO SCH ×2 (08:37→18:59)
[2019-01-26] MEDS: GABAPENTIN 300 MG CAP PO SCH ×2 (08:37→18:59)
[2019-01-26] MEDS: THIAMINE HCL 100 MG TABLET PO SCH (08:37)
[2019-01-26] MEDS: TORSEMIDE 20 MG TAB PO SCH (08:38)
[2019-01-26] MEDS: TRAMADOL HCL 50 MG TAB PO PRN ×3 (08:38→19:00)
[2019-01-26] MEDS: POTASSIUM CL SA 10 MEQ TAB PO SCH (08:38)
[2019-01-26] MEDS: PROMOD 30 ML DOSE PO SCH ×2 (08:39→19:00)
[2019-01-26] MEDS: RIVAROXABAN 10 MG TABLET PO SCH (08:39)
[2019-01-26] MEDS: JUVEN PACKET PO SCH ×2 (08:39→19:00)
--- NOTE | 2019-01-26 13:11 | P.PN ---
Subjective Date of Service: 01/26/19 Chief Complaint: FEELS GOOD. Subjective: Improving SHE IS STABLE,COMFORTABLE, HAS SOME DYSPNEA WITHOUT OXYGEN. CHR DJD. SHE LOVES HER CONCOCTION MADE FROM [employer] AND SHE WILL GET IT HERE. NO CHEST PAIN. TODAY SHE IS FEELING A LOT BETTER. URINARY FREQUENCEY IS LESSER. SOME DIZZINESS FROM ABX. NO PAIN,NO FEVER. SHE IS STABLE. NO COMPLAINTS , WALKS BETTER, STILL WEAK, THINKING OF NH FOR A WHILE. NO NEW ISSUES. R KNEE PAIN. MODERATE. Review of Systems 10-point ROS is otherwise unremarkable Physical Examination - Vital Signs Temperature: 97.6 F Blood Pressure: 110/52 Pulse: 63 Respirations: 16 Pulse Ox (%): 96 - Physical Exam General: Mild distress HEENT: Atraumatic, PERRLA, EOMI Neck: Supple, JVD not distended Respiratory: Clear to auscultation bilaterally, Normal air movement Cardiovascular: Regular rate/rhythm, Normal S1 S2 Gastrointestinal: Normal bowel sounds, No tenderness Musculoskeletal: No tenderness Integumentary: No rashes Neurological: Normal speech, Normal tone, Normal affect Lymphatics: No axilla or inguinal lymphadenopathy - Studies Medications List Reviewed: Yes Assessment And Plan - Current Problems (Diagnosis) (1) DJD (degenerative joint disease) Current Visit: Yes Status: Chronic Plan: 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 SHE WILL AVOID NSAIDS. TRY COSAMINE ASU. 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 ON AC XARELTO. Qualifiers: Encounter type: subsequent encounter (4) Dyspnea Current Visit: Yes Status: Acute Plan: CHECK BNP , D DIMER CXR ALB, ATROVENT NEBS. STABLE FOR NOW. ORDER CT ANGIO AND VENOUS DOPPLER. SHE IS POST OP. SHE MAY NOT HAVE PE BUT AT RISK FOR NOW. (5) ESBL (extended spectrum beta-lactamase) producing bacteria infection Current Visit: Yes Status: Acute Plan: IT IS MOST LIKELY CONTAMINANT. FIRST UA WAS POSITIVE BUT WAS SO CALLED CLEAN CATCH. SECOND UA I ASKED FOR SPECICATH AND WAS TOTALLY NORMAL. 3RD UA WAS POSITIVE IN REHAB BUT WAS CLEAN CATCH THAT IS NOT USUALLY CLEAN IN WOMEN. I ASKED FOR SPECICATH AND THAT IS UA POSITIVE BUT SHE REALLY HAS NO SYMPTOMS EXCEPT WBC IS MILD HIGHER. THIS IS THE ONLY REASON I WILL TREAT UNTIL CULTURE COMES BACK. POSITIVE UA WITHOUT SYMPTOMS DOES NOT NEED TREATMENT. SHE IS BETTER ON CIPRO. TO CONTINUE FOR A WEEK. ESBL WAS A COLONIZED BACTERIA IT WAS COLLECTED WHAT I CALL UN-CLEAN. SPECICATH SHOWED REGULAR E COLI AND NOT ESBL.
--- NOTE | 2019-01-26 13:15 | FAST ---
SHIFT START DATE/TIME: 01/26/2019 07:00 (CDT) SHIFT END DATE/TIME: 01/26/2019 19:00 (CDT) NAME CELSO MADISON DATE OF : 1935 DATE OF ADMISSION: 01/15/2019 16:46 (CDT) PHONE: AGE: 83 SSN# [id number] GENDER: Female ENCOUNTER PHYSICIAN: Dr. Raúl Llanes M.D. ADMISSION DIAGNOSIS: - Orthopaedic Disorders 08 - Unilateral Hip Fracture (08.11) RIGHT MINIMALLY DISPLACED FEMORAL NECK FRACTURE JUST BELOW THE HEAD. EATING: EATING - STEP 1: Does the patient require the assistance of a person or device, or need extra time when eating? Yes. EATING - STEP 2: Does the patient require the assistance of a helper? No, patient only requires an assistive device, O R s/he takes more than reasonable time to eat, OR there is a safety concern, OR s/he requires modifie d food consistency EATING - SCORE: 6-DEMETRI GROOMING: Activity did not occur on this shift GROOMING - SCORE: 0-UNK BATHING: Activity did not occur on this shift BATHING - SCORE: 0-UNK DRESSING - UPPER BODY: Activity did not occur on this shift ARTICLES SCORE Total number of steps: 0 DRESSING - UPPER BODY - SCORE: 0-UNK DRESSING - LOWER BODY: Activity did not occur on this shift ARTICLES SCORE Total number of steps: 0 DRESSING - LOWER BODY - SCORE: 0-UNK TOILETING: TOILETING - STEP 1: Does the patient require the assistance of a person or device, or need extra time with toileting? Yes . TOILETING - STEP 2: Does the patient require the assistance of a helper? Yes. TOILETING - STEP 3: How much assistance does the patient require from the helper? Only supervision TOILETING - SCORE: 5-SUP BLADDER MANAGEMENT: BLADDER MANAGEMENT - STEP 1: Does the patient control the bladder completely and intentionally without equipment or devices or med ications, and is always continent? No. BLADDER MANAGEMENT - STEP 2: Does the patient require the assistance of a helper? No, patient requires and independently uses an a ssistive device, such as a urinal, bedpan, bedside commode, catheter, absorbent pad, or collecting de vice BLADDER MANAGEMENT - SCORE: 6-DEMETRI BOWEL MANAGEMENT: Activity did not occur on this shift BOWEL MANAGEMENT - SCORE: 7-IND TRANSFERS: BED, CHAIR, WHEELCHAIR: TRANSFERS: BED, CHAIR, WHEELCHAIR - STEP 1: Does the patient require assistance of a person or device, or need extra time with bed, chair, or whe elchair transfers? Yes. TRANSFERS: BED, CHAIR, WHEELCHAIR - STEP 2: Does the patient require the assistance of a helper? Yes. TRANSFERS: BED, CHAIR, WHEELCHAIR - STEP 3: How much assistance does the patient require from the helper? Only supervision TRANSFERS: BED, CHAIR, WHEELCHAIR - SCORE: 5-SUP TRANSFERS: TOILET: TRANSFERS: TOILET - STEP 1: Does the patient require the assistance of a person or device, or need extra time with toilet transfe rs? Yes. TRANSFERS: TOILET - STEP 2: Does the patient require the assistance of a helper? Yes. TRANSFERS: TOILET - STEP 3: How much assistance does the patient require from the helper? Only supervision, cuing, coaxing, OR he lp to set out transfer equipment or to lock brakes and/or lift foot rests TRANSFERS: TOILET - SCORE: 5-SUP TRANSFERS: SHOWER: Activity did not occur on this shift TRANSFERS: SHOWER - SCORE: 0-UNK TRANSFERS: TUB: Activity did not occur on this shift TRANSFERS: TUB - SCORE: 0-UNK LOCOMOTION: WALK: Activity did not occur on this shift LOCOMOTION: WALK - SCORE: 0-UNK LOCOMOTION: WHEELCHAIR: Activity did not occur on this shift LOCOMOTION: WHEELCHAIR - SCORE: 0-UNK COMPREHENSION: COMPREHENSION: TYPE: Both COMPREHENSION - STEP 1: Does the patient require help from a person or device, or need extra time to understand complex and a bstract ideas (such as current events, finances, discharge planning, medical issues, relationships, e tc)? No. COMPREHENSION - STEP 2: Does the patient need extra time, require an assistive device (such as glasses for visual comprehensi on or a hearing aid for auditory comprehension) or does s/he have mild difficulty understanding compl ex and abstract information? Yes. COMPREHENSION - SCORE: 6-DEMETRI EXPRESSION EXPRESSION: TYPE: Both EXPRESSION - STEP 1: Does the patient require help from a person or device, or need extra time expressing complex and abst ract ideas (such as current events, finances, discharge planning, medical issues, relationships, etc) ? No. EXPRESSION - STEP 2: Does the patient need extra time, require an assistive device (such as augmentive communication syste m or a communication board), OR does s/he have mild difficulty expressing complex and abstract ideas (including mild dysarthria or mild word-find problems)? Yes. EXPRESSION - SCORE: 6-DEMETRI SOCIAL INTERACTION: SOCIAL INTERACTION - STEP 1: Does the patient require a helper to interact with others in social and therapeutic situations? No. SOCIAL INTERACTION - STEP 2: Does the patient need extra time in social situations, OR does s/he interact with staff, other patien ts, and family members ONLY in structured environments, OR does s/he require medication for social in teraction? Yes, patient needs extra time SOCIAL INTERACTION - SCORE: 6-DEMETRI PROBLEM SOLVING: PROBLEM SOLVING - STEP 1: Does the patient need help from a person or device, or need extra time to solve complex problems such as managing a checking account or confronting interpersonal problems? No. PROBLEM SOLVING - STEP 2: Does the patient require extra time to make decisions or solve problems, OR does s/he have slight dif ficulty reading, initiating, or self-correcting in unfamiliar situations? Yes, patient needs extra ti me. PROBLEM SOLVING - SCORE: 6-DEMETRI MEMORY: MEMORY - STEP 1: Does the patient need help from a person or device, or need extra time to remember frequently encount ered people, daily routines, and executing requests? No. MEMORY - STEP 2: Does the patient have slight difficulty recognizing frequently encountered people, daily routines, or executing requests without the need for repetition or using self-initiated or environmental cues to remember? Yes. MEMORY - SCORE: 6-DEMETRI SIGNATURE PANEL: The following modified sections: Eating - Score, Grooming - Score, Bathing - Score, Dressing - Upper Body - Score, Dressing - Lower Body - Score, Toileting - Score, Bladder Management - Score, Bowel Man agement - Score, Transfers: Bed, Chair, Wheelchair - Score, Transfers: Toilet - Score, Transfers: Maggi wer - Score, Transfers: Tub - Score, Locomotion: Walk - Score, Locomotion: Wheelchair - Score, Compre hension - Score, Expression - Score, Social Interaction - Score, Problem Solving - Score, Memory - Sc ore were [electronically] signed by Romeo Mcrae on FriJan 26 2019 13:14:16 GMT-0500 (Central Daylight Time)
--- NOTE | 2019-01-26 18:25 | R.PN ---
ENCOUNTER DATE AND TIME: 01/26/2019 18:23 (CDT) NAME CELSO MADISON DATE OF : 1935 DATE OF ADMISSION: 01/15/2019 16:46 (CDT) RIGHT MINIMALLY DISPLACED FEMORAL NECK FRACTURE JUST BELOW THE HEADCHIEF COMPLAINT: Right hip fracture. SUBJECTIVE: Pt denied any Shortness of Breath. Pt denied any depression. Ambulated 80' with a rolling walker, contact guard assistance and touch down weight bearing. She reports muscle spasms at night after exercise. Will start magnesium 400 mg twice daily and baclof en 5 mg at night. VITAL SIGNS Temperature: 97.6 F SBP/DBP: 110/52 Pulse: 59 Resp: 16 MEDICATION ALLERGIES: PENICILLIN ENVIRONMENTAL ALLERGIES: None Known - Substance Allergies None Known - Other Allergies None Known NURSING: - Shower allowing shower - Skin care per protocol PRECAUTIONS: - Posterior Hip Precaution No adduction across midline No external rotation No hip flexion >90 degrees No internal rotation No wheel chair propulsion - Weight Bearing Precaution TTWB right LE ACTIVITIES OOB only with supervision THERAPIES: - Dietary and Nutrition Adequate Nutrition. Nutritional Education. Nutritional Supplements. PHYSICAL EXAM - Gen Alert and awake Lying in bed No apparent distress Oriented to: person, time, and place - Skin No skin breakdown. Normacephalic - Eyes No abnormalities - ENMT No abnormalities - Neck No abnormalities - CVS RRR - Resp Clear to auscultation - Abd Soft - GI Non distended Deferred - No abnormalities - Ext Mild left lower extremity edema. - MSK 4+/5 weakness in right lower extremity - Neuro 4/5 strength right lower extremity. - Psych No abnormalities ASSESSMENT: Pt. is a 83 yo Right-handed white female.On 01/13/2019 she was admitted to [facility] with diagnosis RIGHT MINIMALLY DISPLACED FEMORAL NECK FRACTURE JUST BELOW THE HEAD.Her [facility] ent category is Orthopaedic Disorders 08 - Unilateral Hip Fracture (08.11).Pre-morbidly, Pt. was ind ependent/mod-I in Self-Care, Sphincter Control, Transfers Control, Locomotion, Communication, and Soc ial Cognition; and she had good Sphincter Control.Currently, she has deficits of Self-Care, Transfers Control, Locomotion, Endurance, Balance, and Safety Awareness.Pt. is now referred to [facility] for acute in-patient rehabilitation in order to maximize patient's functional inde pendence in activities of daily living, strength, ROM, and mobility.- Rehab Goal Patient has realistic goal of being discharged at assistance level 6-Amado to reside at Home with Fam tevin/Relatives. MDM/PLAN: - Physical Therapy Decreased range of motion - to improve, our physical therapists will perform initial evaluation of p t's status upon admission and devise an individualized program for increasing patient's Range of Adria on. Gait dysfunction - to improve, our physical therapists will perform initial evaluation of pt's statu s upon admission and devise an individualized program for Gait Training, and Wheel Chair mobility Inability to transfer - to improve, our physical therapists will perform initial evaluation of pt's status upon admission and devise an individualized program for Bed mobility Need for home safety evaluation - to improve, our physical therapists will perform initial evaluatio n of pt's status upon admission and devise an individualized program for Home Evaluation Need in caregiver upon discharge - to improve, our physical therapists will perform initial evaluati on of pt's status upon admission and devise an individualized program for Caregiver Training Edema - to improve, our physical therapists will perform initial evaluation of pt's status upon admi ssion and devise an individualized program for Elevation Training, and Lymphedema Therapy New precaution - to improve, our physical therapists will perform initial evaluation of pt's status upon admission and devise an individualized program for Patient precaution education Poor balance - to improve, our physical therapists will perform initial evaluation of pt's status up on admission and devise an individualized program for Balance Training Poor endurance - to improve, our physical therapists will perform initial evaluation of pt's status upon admission and devise an individualized program for Endurance Training Weakness - to improve, our physical therapists will perform initial evaluation of pt's status upon a dmission and devise an individualized program for Aquatic Therapy, Neuromuscular Reeducation, and Str engthening Achieving independence - to improve, our physical therapists will perform initial evaluation of pt's status upon admission and devise an individualized program for Community Reintegration Activities - Occupational Therapy ADL deficits - to improve, our occupation therapists will perform initial evaluation of pt's status upon admission and devise an individualized program for Bathing, Bed mobility, Community Reintegratio n, Cooking, Dressing, Eating, Fine Motor Skills, Grooming, Homemaking, Kitchen Mobility, Laundry, Pat ient Education, Safety Awareness, Splinting - Positioning, Transfers(Toilet, Tub, Shower), and Wheel Chair Management Need for day care home mother - to improve, our occupation therapists will perform initial evaluation of pt's status upon admission and devise an individualized program for Caregiver Training Weakness - to improve, our occupation therapists will perform initial evaluation of pt's status upon admission and devise an individualized program for Aquatic Therapy, Balance, Endurance, UE ROM, and UE strengthening - Other See attached MAR (Medication Administration Record) - Anterior Hip Precaution No abduction No active extension No adduction across midline No external rotation No hip flexion >90 degrees No internal rotation - Diet - Liquid Texture Continue Regular - Tube Feed Continue N/A - Diet Type Continue Regular - Posterior Hip Precaution No adduction across midline No external rotation No hip flexion >90 degrees No internal rotation No wheel chair propulsion - Weight Bearing Precaution TTWB right LE - Skin care per protocol - Diet - Solid Texture Continue Regular - Shower allowing shower FUNCTIONAL STATUS: UPDATED AT WEEKLY TEAM CONFERENCE - Bladder Same accident frequency: 7-Ind - No accidents in the past 7 days - Bowel Same accident frequency: 7-Ind - No accidents in the past 7 days - Walking Same score based on distance walked: 1(<=50ft) - Wheelchair Same score based on distance traveled: 0(N/A) FUNCTIONAL STATUS: - Self-Care A. Eating sup B. Grooming sup C. Bathing modA D. Dressing - Upper Gage E. Dressing - Lower maxA F. Toileting maxA - Sphincter Control G: Bladder control Ind H: Bowel control Ind - Transfers Control I. Bed/Chair/Wheelchair modA J. Toilet modA K. Tub/Shower ADNO - Locomotion L. Walk/Wheelchair (C) maxA L. Walk/Wheelchair (W) maxA M. Stairs ADNO - Communication N. Comprehension (B) Ind O. Expression (B) Ind - Social Cognition P. Social Interaction Ind Q. Problem Solving Ind R. Memory Ind - Endurance Fair - Balance Fair - Safety Awareness Fair CURRENT FUNC. DEFICITS: Self-Care, Transfers Control, Locomotion, Endurance, Balance, and Safety Awareness SIGNATURE PANEL: (CDT)
[2019-01-26] MEDS: GLUCOSAM/CHONDROI 500mg-400mg PO SCH (18:59)
[2019-01-26] MEDS: BACLOFEN 10 MG TAB PO SCH (19:00)
[2019-01-27] MEDS: LEVOTHYROXINE SOD 0.075 MG TAB PO SCH (07:00)
[2019-01-27] MEDS: RANITIDINE 150 MG TABLET PO SCH ×2 (07:00→20:39)
[2019-01-27] MEDS: JUVEN PACKET PO SCH ×2 (08:30→20:40)
[2019-01-27] MEDS: GLUCOSAM/CHONDROI 500mg-400mg PO SCH ×2 (08:30→20:39)
[2019-01-27] MEDS: POTASSIUM CL SA 10 MEQ TAB PO SCH (08:30)
[2019-01-27] MEDS: MAGNESIUM OXIDE 400 MG TAB PO SCH ×2 (08:30→20:40)
[2019-01-27] MEDS: TORSEMIDE 20 MG TAB PO SCH (08:30)
[2019-01-27] MEDS: GABAPENTIN 300 MG CAP PO SCH ×2 (08:30→20:39)
[2019-01-27] MEDS: PROMOD 30 ML DOSE PO SCH ×2 (08:30→20:40)
[2019-01-27] MEDS: RIVAROXABAN 10 MG TABLET PO SCH (08:30)
[2019-01-27] MEDS: CRANBERRY FRUIT EXTRACT 200 MG CAP PO SCH ×2 (08:30→20:39)
[2019-01-27] MEDS: THIAMINE HCL 100 MG TABLET PO SCH (08:30)
[2019-01-27] MEDS: TRAMADOL HCL 50 MG TAB PO PRN ×3 (09:55→17:45)
[2019-01-27] MEDS: LIDOCAINE 5% PATCH TOP SCH (10:20)
--- NOTE | 2019-01-27 10:52 | FAST ---
ENCOUNTER DATE AND TIME: 01/27/2019 08:00 (CDT) NAME CELSO MADISON DATE OF : 1935 DATE OF ADMISSION: 01/15/2019 16:46 (CDT) PHONE: AGE: 83 SSN# [id number] GENDER: Female ENCOUNTER PHYSICIAN: Dr. Raúl Llanes M.D. ADMISSION DIAGNOSIS: - Orthopaedic Disorders 08 - Unilateral Hip Fracture (08.11) RIGHT MINIMALLY DISPLACED FEMORAL NECK FRACTURE JUST BELOW THE HEAD. EATING: Activity did not occur on this shift EATING - SCORE: 0-UNK GROOMING: Comb/brush hair Oral care Wash, rinse, and dry face Wash, rinse, and dry hands GROOMING - STEP 1: Does the patient require the assistance of a person or device, or need extra time when grooming? No. GROOMING - SCORE: 7-IND BATHING: Abdomen Buttocks Chest Left arm Left lower leg and foot Left upper leg Perineal area Right arm Right lower leg and foot Right upper leg BATHING - STEP 1: Does the patient require the assistance of a person or device, or need extra time when bathing? Yes. BATHING - STEP 2: Does the patient require the assistance of a helper? Yes. BATHING - STEP 3: How much assistance does the patient require from the helper? Only supervision, cuing, coaxing, instr uctions, encouragement BATHING - SCORE: 5-SUP DRESSING - UPPER BODY: T-shirt/pullover shirt (four steps) ARTICLES SCORE Total number of steps: 4 DRESSING - UPPER BODY - STEP 1: Does the patient require help from a person or device, or need extra time when dressing above the coni st? Yes. DRESSING - UPPER BODY - STEP 2: Does the patient require the assistance of a helper? Yes. DRESSING - UPPER BODY - STEP 3: Does the helper touch the patient while dressing? No. DRESSING - UPPER BODY - SCORE: 5-SUP DRESSING - LOWER BODY: Elastic waist pants (three steps) Slip-on shoe - Left foot (one step) Slip-on shoe - Right foot (one step) Underwear (three steps) ARTICLES SCORE Total number of steps: 8 DRESSING - LOWER BODY - STEP 1: Does the patient require help from a person or device, or need extra time when dressing below the coni st? Yes. DRESSING - LOWER BODY - STEP 2: Does the patient require the assistance of a helper? Yes. DRESSING - LOWER BODY - STEP 3: Does the helper touch the patient while dressing? Yes. DRESSING - LOWER BODY - STEP 4: How many of the total steps does the patient complete on his/her own? 8 DRESSING - LOWER BODY - SCORE: 4-MIN TOILETING: Activity did not occur on this shift TOILETING - SCORE: 0-UNK BLADDER MANAGEMENT: Activity did not occur on this shift BLADDER MANAGEMENT - SCORE: 7-IND BOWEL MANAGEMENT: Activity did not occur on this shift BOWEL MANAGEMENT - SCORE: 7-IND TRANSFERS: BED, CHAIR, WHEELCHAIR: Activity did not occur on this shift TRANSFERS: BED, CHAIR, WHEELCHAIR - SCORE: 0-UNK TRANSFERS: TOILET: Activity did not occur on this shift TRANSFERS: TOILET - SCORE: 0-UNK TRANSFERS: SHOWER: Activity did not occur on this shift TRANSFERS: SHOWER - SCORE: 0-UNK TRANSFERS: TUB: TRANSFERS: TUB - STEP 1: Does the patient require the assistance of a person or device, or need extra time with tub transfers? Yes. TRANSFERS: TUB - STEP 2: Does the patient require the assistance of a helper? Yes. TRANSFERS: TUB - STEP 3: How much assistance does the patient require from the helper? Only supervision, cuing, coaxing, or he lp to set out transfer equipment or to lock brakes and/or lift foot rests TRANSFERS: TUB - SCORE: 5-SUP LOCOMOTION: WALK: Activity did not occur on this shift LOCOMOTION: WALK - SCORE: 0-UNK LOCOMOTION: WHEELCHAIR: Activity did not occur on this shift LOCOMOTION: WHEELCHAIR - SCORE: 0-UNK LOCOMOTION: STAIRS: Activity did not occur on this shift LOCOMOTION: STAIRS - SCORE: 0-UNK COMPREHENSION: COMPREHENSION: TYPE: Visual COMPREHENSION - STEP 1: Does the patient require help from a person or device, or need extra time to understand complex and a bstract ideas (such as current events, finances, discharge planning, medical issues, relationships, e tc)? No. COMPREHENSION - STEP 2: Does the patient need extra time, require an assistive device (such as glasses for visual comprehensi on or a hearing aid for auditory comprehension) or does s/he have mild difficulty understanding compl ex and abstract information? Yes. COMPREHENSION - SCORE: 6-DEMETRI EXPRESSION EXPRESSION: TYPE: Non-Vocal EXPRESSION - STEP 1: Does the patient require help from a person or device, or need extra time expressing complex and abst ract ideas (such as current events, finances, discharge planning, medical issues, relationships, etc) ? No. EXPRESSION - STEP 2: Does the patient need extra time, require an assistive device (such as augmentive communication syste m or a communication board), OR does s/he have mild difficulty expressing complex and abstract ideas (including mild dysarthria or mild word-find problems)? Yes. EXPRESSION - SCORE: 6-DEMETRI SOCIAL INTERACTION: SOCIAL INTERACTION - STEP 1: Does the patient require a helper to interact with others in social and therapeutic situations? No. SOCIAL INTERACTION - STEP 2: Does the patient need extra time in social situations, OR does s/he interact with staff, other patien ts, and family members ONLY in structured environments, OR does s/he require medication for social in teraction? No. SOCIAL INTERACTION - SCORE: 7-IND PROBLEM SOLVING: PROBLEM SOLVING - STEP 1: Does the patient need help from a person or device, or need extra time to solve complex problems such as managing a checking account or confronting interpersonal problems? No. PROBLEM SOLVING - STEP 2: Does the patient require extra time to make decisions or solve problems, OR does s/he have slight dif ficulty reading, initiating, or self-correcting in unfamiliar situations? No. PROBLEM SOLVING - SCORE: 7-IND MEMORY: MEMORY - STEP 1: Does the patient need help from a person or device, or need extra time to remember frequently encount ered people, daily routines, and executing requests? No. MEMORY - STEP 2: Does the patient have slight difficulty recognizing frequently encountered people, daily routines, or executing requests without the need for repetition or using self-initiated or environmental cues to remember? Yes. MEMORY - SCORE: 6-DEMETRI SIGNATURE PANEL: The following modified sections: Eating - Score, Grooming - Score, Bathing - Score, Dressing - Upper Body - Score, Dressing - Lower Body - Score, Toileting - Score, Transfers: Bed, Chair, Wheelchair - S core, Transfers: Toilet - Score, Transfers: Shower - Score, Transfers: Tub - Score, Comprehension - S core, Expression - Score, Social Interaction - Score, Problem Solving - Score, Memory - Score were [e lectronically] signed by LLUVIA Vickers on FriJan 27 2019 10:51:46 T-0500 ([facility] Time)
--- NOTE | 2019-01-27 15:28 | FAST ---
ENCOUNTER DATE AND TIME: 01/26/2019 08:00 (CDT) NAME CELSO MADISON DATE OF : 1935 DATE OF ADMISSION: 01/15/2019 16:46 (CDT) PHONE: AGE: 83 SSN# [id number] GENDER: Female ENCOUNTER PHYSICIAN: Dr. Raúl Llanes M.D. ADMISSION DIAGNOSIS: - Orthopaedic Disorders 08 - Unilateral Hip Fracture (08.11) RIGHT MINIMALLY DISPLACED FEMORAL NECK FRACTURE JUST BELOW THE HEAD. EATING: Activity did not occur on this shift EATING - SCORE: 0-UNK GROOMING: Activity did not occur on this shift GROOMING - SCORE: 0-UNK BATHING: Activity did not occur on this shift BATHING - SCORE: 0-UNK DRESSING - UPPER BODY: Activity did not occur on this shift Patient is not dressing in public clothing ARTICLES SCORE Total number of steps: 0 DRESSING - UPPER BODY - SCORE: 0-UNK DRESSING - LOWER BODY: Activity did not occur on this shift Patient is not dressing in public clothing ARTICLES SCORE Total number of steps: 0 DRESSING - LOWER BODY - SCORE: 0-UNK TOILETING: Activity did not occur on this shift TOILETING - SCORE: 0-UNK BLADDER MANAGEMENT: Activity did not occur on this shift BLADDER MANAGEMENT - SCORE: 7-IND BOWEL MANAGEMENT: Activity did not occur on this shift BOWEL MANAGEMENT - SCORE: 7-IND TRANSFERS: BED, CHAIR, WHEELCHAIR: TRANSFERS: BED, CHAIR, WHEELCHAIR - STEP 1: Does the patient require assistance of a person or device, or need extra time with bed, chair, or whe elchair transfers? Yes. TRANSFERS: BED, CHAIR, WHEELCHAIR - STEP 2: Does the patient require the assistance of a helper? Yes. TRANSFERS: BED, CHAIR, WHEELCHAIR - STEP 3: How much assistance does the patient require from the helper? Only supervision TRANSFERS: BED, CHAIR, WHEELCHAIR - SCORE: 5-SUP TRANSFERS: TOILET: Activity did not occur on this shift TRANSFERS: TOILET - SCORE: 0-UNK TRANSFERS: SHOWER: Activity did not occur on this shift TRANSFERS: SHOWER - SCORE: 0-UNK TRANSFERS: TUB: Activity did not occur on this shift TRANSFERS: TUB - SCORE: 0-UNK LOCOMOTION: WALK: Patient walks less than 50 feet LOCOMOTION: WALK - SCORE: 1-DEP LOCOMOTION: WHEELCHAIR: LOCOMOTION: WHEELCHAIR - STEP 1: Does the patient need help to go 150 feet in a wheelchair? No. LOCOMOTION: WHEELCHAIR - SCORE: 6-DEMETRI LOCOMOTION: STAIRS: Activity did not occur on this shift LOCOMOTION: STAIRS - SCORE: 0-UNK COMPREHENSION: COMPREHENSION - SCORE: 0-UNK EXPRESSION EXPRESSION - SCORE: 0-UNK SOCIAL INTERACTION: SOCIAL INTERACTION - SCORE: 0-UNK PROBLEM SOLVING: PROBLEM SOLVING - SCORE: 0-UNK MEMORY: MEMORY - SCORE: 0-UNK SIGNATURE PANEL: The following modified sections: Transfers: Bed, Chair, Wheelchair - Score, Transfers: Toilet - Score , Locomotion: Walk - Score, Locomotion: Wheelchair - Score, Locomotion: Stairs - Score were [electron icapanchito] signed by Garrison Ha PTA on FriJan 27 2019 15:27:45 GMT-0500 (Central Daylight Time)
[2019-01-27] MEDS: BACLOFEN 10 MG TAB PO SCH (20:39)
--- NOTE | 2019-01-28 01:16 | FAST ---
SHIFT START DATE/TIME: 01/27/2019 19:00 (CDT) SHIFT END DATE/TIME: 01/28/2019 07:00 (CDT) NAME CELSO MADISON DATE OF : 1935 DATE OF ADMISSION: 01/15/2019 16:46 (CDT) PHONE: AGE: 83 SSN# [id number] GENDER: Female ENCOUNTER PHYSICIAN: Dr. Raúl Llanes M.D. ADMISSION DIAGNOSIS: - Orthopaedic Disorders 08 - Unilateral Hip Fracture (08.11) RIGHT MINIMALLY DISPLACED FEMORAL NECK FRACTURE JUST BELOW THE HEAD. EATING: Activity did not occur on this shift EATING - SCORE: 0-UNK GROOMING: Oral care Wash, rinse, and dry hands GROOMING - STEP 1: Does the patient require the assistance of a person or device, or need extra time when grooming? Yes. GROOMING - STEP 2: Does the patient require the assistance of a helper? No. The patient only requires an assistive devic e, OR takes more than reasonable time to groom, OR there is a concern for safety as the patient groom s GROOMING - SCORE: 6-DEMETRI BATHING: Activity did not occur on this shift BATHING - SCORE: 0-UNK DRESSING - UPPER BODY: Patient is not dressing in public clothing ARTICLES SCORE Total number of steps: 0 DRESSING - UPPER BODY - SCORE: 0-UNK DRESSING - LOWER BODY: Patient is not dressing in public clothing ARTICLES SCORE Total number of steps: 0 DRESSING - LOWER BODY - SCORE: 0-UNK TOILETING: TOILETING - STEP 1: Does the patient require the assistance of a person or device, or need extra time with toileting? Yes . TOILETING - STEP 2: Does the patient require the assistance of a helper? Yes. TOILETING - STEP 3: How much assistance does the patient require from the helper? Only supervision TOILETING - SCORE: 5-SUP BLADDER MANAGEMENT: BLADDER MANAGEMENT - STEP 1: Does the patient control the bladder completely and intentionally without equipment or devices or med ications, and is always continent? No. BLADDER MANAGEMENT - STEP 2: Does the patient require the assistance of a helper? Yes. BLADDER MANAGEMENT - STEP 3: How much assistance does the patient require from the helper? Only supervision, stand-by, cuing, or c oaxing BLADDER MANAGEMENT - SCORE: 5-SUP BOWEL MANAGEMENT: BOWEL MANAGEMENT - STEP 1: Does the patient control bowels completely and intentionally without equipment devices or medications AND is always continent? No. BOWEL MANAGEMENT - STEP 2: Does the patient require the assistance of a helper? No, patient requires medication for control such as stool softeners, suppositories, laxatives, enemas, or OTC medications BOWEL MANAGEMENT - SCORE: 6-DEMETRI TRANSFERS: BED, CHAIR, WHEELCHAIR: TRANSFERS: BED, CHAIR, WHEELCHAIR - STEP 1: Does the patient require assistance of a person or device, or need extra time with bed, chair, or whe elchair transfers? Yes. TRANSFERS: BED, CHAIR, WHEELCHAIR - STEP 2: Does the patient require the assistance of a helper? Yes. TRANSFERS: BED, CHAIR, WHEELCHAIR - STEP 3: How much assistance does the patient require from the helper? Steadying/guiding assistance TRANSFERS: BED, CHAIR, WHEELCHAIR - SCORE: 4-MIN TRANSFERS: TOILET: TRANSFERS: TOILET - STEP 1: Does the patient require the assistance of a person or device, or need extra time with toilet transfe rs? Yes. TRANSFERS: TOILET - STEP 2: Does the patient require the assistance of a helper? Yes. TRANSFERS: TOILET - STEP 3: How much assistance does the patient require from the helper? Only supervision, cuing, coaxing, OR he lp to set out transfer equipment or to lock brakes and/or lift foot rests TRANSFERS: TOILET - SCORE: 5-SUP TRANSFERS: SHOWER: Activity did not occur on this shift TRANSFERS: SHOWER - SCORE: 0-UNK TRANSFERS: TUB: Activity did not occur on this shift TRANSFERS: TUB - SCORE: 0-UNK LOCOMOTION: WALK: Activity did not occur on this shift LOCOMOTION: WALK - SCORE: 0-UNK LOCOMOTION: WHEELCHAIR: Activity did not occur on this shift LOCOMOTION: WHEELCHAIR - SCORE: 0-UNK COMPREHENSION: COMPREHENSION: TYPE: Both COMPREHENSION - STEP 1: Does the patient require help from a person or device, or need extra time to understand complex and a bstract ideas (such as current events, finances, discharge planning, medical issues, relationships, e tc)? No. COMPREHENSION - STEP 2: Does the patient need extra time, require an assistive device (such as glasses for visual comprehensi on or a hearing aid for auditory comprehension) or does s/he have mild difficulty understanding compl ex and abstract information? Yes. COMPREHENSION - SCORE: 6-DEMETRI EXPRESSION EXPRESSION: TYPE: Both EXPRESSION - STEP 1: Does the patient require help from a person or device, or need extra time expressing complex and abst ract ideas (such as current events, finances, discharge planning, medical issues, relationships, etc) ? No. EXPRESSION - STEP 2: Does the patient need extra time, require an assistive device (such as augmentive communication syste m or a communication board), OR does s/he have mild difficulty expressing complex and abstract ideas (including mild dysarthria or mild word-find problems)? Yes. EXPRESSION - SCORE: 6-DEMETRI SOCIAL INTERACTION: SOCIAL INTERACTION - STEP 1: Does the patient require a helper to interact with others in social and therapeutic situations? No. SOCIAL INTERACTION - STEP 2: Does the patient need extra time in social situations, OR does s/he interact with staff, other patien ts, and family members ONLY in structured environments, OR does s/he require medication for social in teraction? Yes, patient needs extra time SOCIAL INTERACTION - SCORE: 6-DEMETRI PROBLEM SOLVING: PROBLEM SOLVING - STEP 1: Does the patient need help from a person or device, or need extra time to solve complex problems such as managing a checking account or confronting interpersonal problems? No. PROBLEM SOLVING - STEP 2: Does the patient require extra time to make decisions or solve problems, OR does s/he have slight dif ficulty reading, initiating, or self-correcting in unfamiliar situations? Yes, patient needs extra ti me. PROBLEM SOLVING - SCORE: 6-DEMETRI MEMORY: MEMORY - STEP 1: Does the patient need help from a person or device, or need extra time to remember frequently encount ered people, daily routines, and executing requests? No. MEMORY - STEP 2: Does the patient have slight difficulty recognizing frequently encountered people, daily routines, or executing requests without the need for repetition or using self-initiated or environmental cues to remember? Yes. MEMORY - SCORE: 6-DEMETRI SIGNATURE PANEL: The following modified sections: Eating - Score, Grooming - Score, Dressing - Upper Body - Score, Malik ssing - Lower Body - Score, Toileting - Score, Bladder Management - Score, Bowel Management - Score, Transfers: Bed, Chair, Wheelchair - Score, Transfers: Toilet - Score, Transfers: Shower - Score, Yeung sfers: Tub - Score, Locomotion: Walk - Score, Locomotion: Wheelchair - Score, Comprehension - Score, Expression - Score, Social Interaction - Score, Problem Solving - Score, Memory - Score were [electro nically] signed by Janee Adan CNA on FriJan 28 2019 01:16:01 GMT-0500 (Central Daylight Time)
[2019-01-28 06:32] LABS: Absolute Lymphocytes (CBC) 2.3 K/uL (0.7-4.9); Hematocrit 36.9 % (36.0-45.0); Lymphocytes % 30.7 % (15.3-44.8); MPV 8.1 fL (7.6-11.3)
[2019-01-28] MEDS: LEVOTHYROXINE SOD 0.075 MG TAB PO SCH (06:32)
[2019-01-28] MEDS: RANITIDINE 150 MG TABLET PO SCH ×2 (06:32→19:32)
[2019-01-28 07:29] LABS: Albumin 3.3 g/dL (3.4-5.0); BUN Blood Urea Nitrogen 19 mg/dL (7-18); Bicarbonate 33 mmol/L (21-32); Glucose Level 86 mg/dL (74-106); Magnesium 2.5 mg/dL (1.8-2.4); Potassium 3.7 mmol/L (3.5-5.1); Prealbumin 22.4 mg/dL (20-40); Sodium Level 142 mmol/L (136-145)
[2019-01-28] MEDS: MAGNESIUM OXIDE 400 MG TAB PO SCH ×2 (08:00→19:32)
[2019-01-28] MEDS: POTASSIUM CL SA 10 MEQ TAB PO SCH (08:15)
[2019-01-28] MEDS: CRANBERRY FRUIT EXTRACT 200 MG CAP PO SCH ×2 (08:16→19:31)
[2019-01-28] MEDS: GABAPENTIN 300 MG CAP PO SCH ×2 (08:17→19:32)
[2019-01-28] MEDS: TORSEMIDE 20 MG TAB PO SCH (08:17)
[2019-01-28] MEDS: TRAMADOL HCL 50 MG TAB PO PRN ×3 (08:17→18:28)
[2019-01-28] MEDS: THIAMINE HCL 100 MG TABLET PO SCH (08:17)
[2019-01-28] MEDS: GLUCOSAM/CHONDROI 500mg-400mg PO SCH ×2 (08:18→19:32)
[2019-01-28] MEDS: PROMOD 30 ML DOSE PO SCH ×2 (08:18→19:33)
[2019-01-28] MEDS: JUVEN PACKET PO SCH ×2 (08:19→19:33)
[2019-01-28] MEDS: LIDOCAINE 5% PATCH TOP SCH (08:19)
[2019-01-28] MEDS: RIVAROXABAN 10 MG TABLET PO SCH (08:20)
--- NOTE | 2019-01-28 15:02 | FAST ---
ENCOUNTER DATE AND TIME: 01/28/2019 08:00 (CDT) NAME CELSO MADISON DATE OF : 1935 DATE OF ADMISSION: 01/15/2019 16:46 (CDT) PHONE: AGE: 83 SSN# [id number] GENDER: Female ENCOUNTER PHYSICIAN: Dr. Raúl Llanes M.D. ADMISSION DIAGNOSIS: - Orthopaedic Disorders 08 - Unilateral Hip Fracture (08.11) RIGHT MINIMALLY DISPLACED FEMORAL NECK FRACTURE JUST BELOW THE HEAD. EATING: Activity did not occur on this shift EATING - SCORE: 0-UNK GROOMING: Activity did not occur on this shift GROOMING - SCORE: 0-UNK BATHING: Activity did not occur on this shift BATHING - SCORE: 0-UNK DRESSING - UPPER BODY: Activity did not occur on this shift Patient is not dressing in public clothing ARTICLES SCORE Total number of steps: 0 DRESSING - UPPER BODY - SCORE: 0-UNK DRESSING - LOWER BODY: Activity did not occur on this shift Patient is not dressing in public clothing ARTICLES SCORE Total number of steps: 0 DRESSING - LOWER BODY - SCORE: 0-UNK TOILETING: Activity did not occur on this shift TOILETING - SCORE: 0-UNK BLADDER MANAGEMENT: Activity did not occur on this shift BLADDER MANAGEMENT - SCORE: 7-IND BOWEL MANAGEMENT: Activity did not occur on this shift BOWEL MANAGEMENT - SCORE: 7-IND TRANSFERS: BED, CHAIR, WHEELCHAIR: TRANSFERS: BED, CHAIR, WHEELCHAIR - STEP 1: Does the patient require assistance of a person or device, or need extra time with bed, chair, or whe elchair transfers? Yes. TRANSFERS: BED, CHAIR, WHEELCHAIR - STEP 2: Does the patient require the assistance of a helper? Yes. TRANSFERS: BED, CHAIR, WHEELCHAIR - STEP 3: How much assistance does the patient require from the helper? Only supervision TRANSFERS: BED, CHAIR, WHEELCHAIR - SCORE: 5-SUP TRANSFERS: TOILET: Activity did not occur on this shift TRANSFERS: TOILET - SCORE: 0-UNK TRANSFERS: SHOWER: Activity did not occur on this shift TRANSFERS: SHOWER - SCORE: 0-UNK TRANSFERS: TUB: Activity did not occur on this shift TRANSFERS: TUB - SCORE: 0-UNK LOCOMOTION: WALK: LOCOMOTION: WALK - STEP 1: Does the patient need help from a person or device, or need extra time to walk 150 feet? Yes. LOCOMOTION: WALK - STEP 2: How much assistance does the patient require to walk a minimum of 150 feet? Patient walks less than 1 50 feet - but more than 50 feet - with the assistance of only one helper LOCOMOTION: WALK - SCORE: 2-MAX LOCOMOTION: WHEELCHAIR: LOCOMOTION: WHEELCHAIR - STEP 1: Does the patient need help to go 150 feet in a wheelchair? No. LOCOMOTION: WHEELCHAIR - SCORE: 6-DEMETRI LOCOMOTION: STAIRS: Activity did not occur on this shift LOCOMOTION: STAIRS - SCORE: 0-UNK COMPREHENSION: COMPREHENSION - SCORE: 0-UNK EXPRESSION EXPRESSION - SCORE: 0-UNK SOCIAL INTERACTION: SOCIAL INTERACTION - SCORE: 0-UNK PROBLEM SOLVING: PROBLEM SOLVING - SCORE: 0-UNK MEMORY: MEMORY - SCORE: 0-UNK SIGNATURE PANEL: The following modified sections: Transfers: Bed, Chair, Wheelchair - Score, Transfers: Toilet - Score , Locomotion: Walk - Score, Locomotion: Wheelchair - Score, Locomotion: Stairs - Score were [electron chitra] signed by Garrison Ha PTA on FriJan 28 2019 15:01:45 GMT-0500 (Central Daylight Time)
--- NOTE | 2019-01-28 17:50 | P.PN ---
Subjective Date of Service: 01/28/19 Chief Complaint: FEELS GOOD. Subjective: Improving SHE IS STABLE,COMFORTABLE, HAS SOME DYSPNEA WITHOUT OXYGEN. CHR DJD. SHE LOVES HER CONCOCTION MADE FROM [employer] [place] [employer] AND SHE WILL GET IT HERE. NO CHEST PAIN. TODAY SHE IS FEELING A LOT BETTER. URINARY FREQUENCEY IS LESSER. SOME DIZZINESS FROM ABX. NO PAIN,NO FEVER. SHE IS STABLE. NO COMPLAINTS , WALKS BETTER, STILL WEAK, THINKING OF NH FOR A WHILE. NO NEW ISSUES. R KNEE PAIN. MODERATE. PAIN IS BETTER NOW. Review of Systems 10-point ROS is otherwise unremarkable General: Weakness, Malaise Physical Examination - Vital Signs Temperature: 97.4 F Blood Pressure: 117/55 Pulse: 63 Respirations: 16 Pulse Ox (%): 97 - Physical Exam General: Alert, In no apparent distress HEENT: Atraumatic, PERRLA, EOMI Neck: Supple, JVD not distended Respiratory: Clear to auscultation bilaterally, Normal air movement Cardiovascular: Regular rate/rhythm, Normal S1 S2 Gastrointestinal: Normal bowel sounds, No tenderness Musculoskeletal: No tenderness Integumentary: No rashes Neurological: Normal speech, Normal tone, Normal affect Lymphatics: No axilla or inguinal lymphadenopathy - Studies Laboratory Data (last 24 hrs) 01/28/19 06:55: Sodium 142, Potassium 3.7, BUN 19 H, Creatinine 0.62, Glucose 86 , Magnesium 2.5 H 01/28/19 06:10: WBC 7.5, Hgb 12.3, Hct 36.9, Plt Count 376 D Medications List Reviewed: Yes Assessment And Plan - Current Problems (Diagnosis) (1) DJD (degenerative joint disease) Current Visit: Yes Status: Chronic Plan: 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 SHE WILL AVOID NSAIDS. TRY COSAMINE ASU. R KNEE MAY NEED TKR LATER. 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 ON AC XARELTO. Qualifiers: Encounter type: subsequent encounter (4) Dyspnea Current Visit: Yes Status: Acute Plan: CHECK BNP , D DIMER CXR ALB, ATROVENT NEBS. STABLE FOR NOW. ORDER CT ANGIO AND VENOUS DOPPLER. SHE IS POST OP. SHE MAY NOT HAVE PE BUT AT RISK FOR NOW. (5) ESBL (extended spectrum beta-lactamase) producing bacteria infection Current Visit: Yes Status: Acute Plan: IT IS MOST LIKELY CONTAMINANT. FIRST UA WAS POSITIVE BUT WAS SO CALLED CLEAN CATCH. SECOND UA I ASKED FOR SPECICATH AND WAS TOTALLY NORMAL. 3RD UA WAS POSITIVE IN REHAB BUT WAS CLEAN CATCH THAT IS NOT USUALLY CLEAN IN WOMEN. I ASKED FOR SPECICATH AND THAT IS UA POSITIVE BUT SHE REALLY HAS NO SYMPTOMS EXCEPT WBC IS MILD HIGHER. THIS IS THE ONLY REASON I WILL TREAT UNTIL CULTURE COMES BACK. POSITIVE UA WITHOUT SYMPTOMS DOES NOT NEED TREATMENT. SHE IS BETTER ON CIPRO. TO CONTINUE FOR A WEEK. ESBL WAS A COLONIZED BACTERIA IT WAS COLLECTED WHAT I CALL UN-CLEAN. SPECICATH SHOWED REGULAR E COLI AND NOT ESBL.
--- NOTE | 2019-01-28 17:56 | R.PN ---
ENCOUNTER DATE AND TIME: 01/28/2019 17:51 (CDT) NAME CELSO MADISON DATE OF : 1935 DATE OF ADMISSION: 01/15/2019 16:46 (CDT) RIGHT MINIMALLY DISPLACED FEMORAL NECK FRACTURE JUST BELOW THE HEADCHIEF COMPLAINT: Right hip fracture. SUBJECTIVE: Pt denied any Shortness of Breath. Pt denied any depression. Ambulated 80' with a rolling walker, standby assistance and touch down weight bearing. Self-propelled wheelchair 250' with modified independence. She reports muscle spasms at night after exercise. Will start magnesium 400 mg twice daily and baclof en 5 mg at night. WBC 7.5, Hgb 12.3, prealbumin 22.4. Repeat UA is negative. 12 VITAL SIGNS Temperature: 97.4 F SBP/DBP: 117/55 Pulse: 63 Resp: 16 MEDICATION ALLERGIES: PENICILLIN ENVIRONMENTAL ALLERGIES: None Known - Substance Allergies None Known - Other Allergies None Known NURSING: - Shower allowing shower - Skin care per protocol PRECAUTIONS: - Posterior Hip Precaution No adduction across midline No external rotation No hip flexion >90 degrees No internal rotation No wheel chair propulsion - Weight Bearing Precaution TTWB right LE ACTIVITIES OOB only with supervision THERAPIES: - Dietary and Nutrition Adequate Nutrition. Nutritional Education. Nutritional Supplements. PHYSICAL EXAM - Gen Alert and awake Lying in bed No apparent distress Oriented to: person, time, and place - Skin No skin breakdown. Normacephalic - Eyes No abnormalities - ENMT No abnormalities - Neck No abnormalities - CVS RRR - Resp Clear to auscultation - Abd Soft - GI Non distended Deferred - No abnormalities - Ext Mild left lower extremity edema. - MSK 4+/5 weakness in right lower extremity - Neuro 4/5 strength right lower extremity. - Psych No abnormalities ASSESSMENT: Pt. is a 83 yo Right-handed white female.On 01/13/2019 she was admitted to [facility] with diagnosis RIGHT MINIMALLY DISPLACED FEMORAL NECK FRACTURE JUST BELOW THE HEAD.Her [facility] ent category is Orthopaedic Disorders 08 - Unilateral Hip Fracture (08.11).Pre-morbidly, Pt. was ind ependent/mod-I in Self-Care, Sphincter Control, Transfers Control, Locomotion, Communication, and Soc ial Cognition; and she had good Sphincter Control.Currently, she has deficits of Self-Care, Transfers Control, Locomotion, Endurance, Balance, and Safety Awareness.Pt. is now referred to [facility] for acute in-patient rehabilitation in order to maximize patient's functional inde pendence in activities of daily living, strength, ROM, and mobility.- Rehab Goal Patient has realistic goal of being discharged at assistance level 6-Amado to reside at Home with Fam tevin/Relatives. MDM/PLAN: - Physical Therapy Decreased range of motion - to improve, our physical therapists will perform initial evaluation of p t's status upon admission and devise an individualized program for increasing patient's Range of Adria on. Gait dysfunction - to improve, our physical therapists will perform initial evaluation of pt's statu s upon admission and devise an individualized program for Gait Training, and Wheel Chair mobility Inability to transfer - to improve, our physical therapists will perform initial evaluation of pt's status upon admission and devise an individualized program for Bed mobility Need for home safety evaluation - to improve, our physical therapists will perform initial evaluatio n of pt's status upon admission and devise an individualized program for Home Evaluation Need in caregiver upon discharge - to improve, our physical therapists will perform initial evaluati on of pt's status upon admission and devise an individualized program for Caregiver Training Edema - to improve, our physical therapists will perform initial evaluation of pt's status upon admi ssion and devise an individualized program for Elevation Training, and Lymphedema Therapy New precaution - to improve, our physical therapists will perform initial evaluation of pt's status upon admission and devise an individualized program for Patient precaution education Poor balance - to improve, our physical therapists will perform initial evaluation of pt's status up on admission and devise an individualized program for Balance Training Poor endurance - to improve, our physical therapists will perform initial evaluation of pt's status upon admission and devise an individualized program for Endurance Training Weakness - to improve, our physical therapists will perform initial evaluation of pt's status upon a dmission and devise an individualized program for Aquatic Therapy, Neuromuscular Reeducation, and Str engthening Achieving independence - to improve, our physical therapists will perform initial evaluation of pt's status upon admission and devise an individualized program for Community Reintegration Activities - Occupational Therapy ADL deficits - to improve, our occupation therapists will perform initial evaluation of pt's status upon admission and devise an individualized program for Bathing, Bed mobility, Community Reintegratio n, Cooking, Dressing, Eating, Fine Motor Skills, Grooming, Homemaking, Kitchen Mobility, Laundry, Pat ient Education, Safety Awareness, Splinting - Positioning, Transfers(Toilet, Tub, Shower), and Wheel Chair Management Need for healthcare business analyst - to improve, our occupation therapists will perform initial evaluation of pt's status upon admission and devise an individualized program for Caregiver Training Weakness - to improve, our occupation therapists will perform initial evaluation of pt's status upon admission and devise an individualized program for Aquatic Therapy, Balance, Endurance, UE ROM, and UE strengthening - Other See attached MAR (Medication Administration Record) - Anterior Hip Precaution No abduction No active extension No adduction across midline No external rotation No hip flexion >90 degrees No internal rotation - Diet - Liquid Texture Continue Regular - Tube Feed Continue N/A - Diet Type Continue Regular - Posterior Hip Precaution No adduction across midline No external rotation No hip flexion >90 degrees No internal rotation No wheel chair propulsion - Weight Bearing Precaution TTWB right LE - Skin care per protocol - Diet - Solid Texture Continue Regular - Shower allowing shower FUNCTIONAL STATUS: UPDATED AT WEEKLY TEAM CONFERENCE - Bladder Same accident frequency: 7-Ind - No accidents in the past 7 days - Bowel Same accident frequency: 7-Ind - No accidents in the past 7 days - Walking Same score based on distance walked: 1(<=50ft) - Wheelchair Same score based on distance traveled: 0(N/A) FUNCTIONAL STATUS: - Self-Care A. Eating sup B. Grooming sup C. Bathing modA D. Dressing - Upper aGge E. Dressing - Lower maxA F. Toileting maxA - Sphincter Control G: Bladder control Ind H: Bowel control Ind - Transfers Control I. Bed/Chair/Wheelchair modA J. Toilet modA K. Tub/Shower ADNO - Locomotion L. Walk/Wheelchair (C) maxA L. Walk/Wheelchair (W) maxA M. Stairs ADNO - Communication N. Comprehension (B) Ind O. Expression (B) Ind - Social Cognition P. Social Interaction Ind Q. Problem Solving Ind R. Memory Ind - Endurance Fair - Balance Fair - Safety Awareness Fair CURRENT FUNC. DEFICITS: Self-Care, Transfers Control, Locomotion, Endurance, Balance, and Safety Awareness SIGNATURE PANEL: (CDT)
[2019-01-28] MEDS: BACLOFEN 10 MG TAB PO SCH (20:33)
--- NOTE | 2019-01-29 01:31 | FAST ---
SHIFT START DATE/TIME: 01/28/2019 19:00 (CDT) SHIFT END DATE/TIME: 01/29/2019 07:00 (CDT) NAME CELSO MADISON DATE OF : 1935 DATE OF ADMISSION: 01/15/2019 16:46 (CDT) PHONE: AGE: 83 SSN# [id number] GENDER: Female ENCOUNTER PHYSICIAN: Dr. Raúl Llanes M.D. ADMISSION DIAGNOSIS: - Orthopaedic Disorders 08 - Unilateral Hip Fracture (08.11) RIGHT MINIMALLY DISPLACED FEMORAL NECK FRACTURE JUST BELOW THE HEAD. EATING: Activity did not occur on this shift EATING - SCORE: 0-UNK GROOMING: Oral care Wash, rinse, and dry hands GROOMING - STEP 1: Does the patient require the assistance of a person or device, or need extra time when grooming? Yes. GROOMING - STEP 2: Does the patient require the assistance of a helper? Yes. GROOMING - STEP 3: How much assistance does the patient require from the helper? Only prior equipment preparation/set up from the helper GROOMING - SCORE: 5-SUP BATHING: Activity did not occur on this shift BATHING - SCORE: 0-UNK DRESSING - UPPER BODY: Activity did not occur on this shift Patient is not dressing in public clothing ARTICLES SCORE Total number of steps: 0 DRESSING - UPPER BODY - SCORE: 0-UNK DRESSING - LOWER BODY: Patient is not dressing in public clothing ARTICLES SCORE Total number of steps: 0 DRESSING - LOWER BODY - SCORE: 0-UNK TOILETING: TOILETING - STEP 1: Does the patient require the assistance of a person or device, or need extra time with toileting? Yes . TOILETING - STEP 2: Does the patient require the assistance of a helper? Yes. TOILETING - STEP 3: How much assistance does the patient require from the helper? Only supervision TOILETING - SCORE: 5-SUP BLADDER MANAGEMENT: BLADDER MANAGEMENT - STEP 1: Does the patient control the bladder completely and intentionally without equipment or devices or med ications, and is always continent? No. BLADDER MANAGEMENT - STEP 2: Does the patient require the assistance of a helper? No, patient requires and independently uses an a ssistive device, such as a urinal, bedpan, bedside commode, catheter, absorbent pad, or collecting de vice BLADDER MANAGEMENT - SCORE: 6-DEMETRI BOWEL MANAGEMENT: BOWEL MANAGEMENT - STEP 1: Does the patient control bowels completely and intentionally without equipment devices or medications AND is always continent? No. BOWEL MANAGEMENT - STEP 2: Does the patient require the assistance of a helper? No, patient requires medication for control such as stool softeners, suppositories, laxatives, enemas, or OTC medications BOWEL MANAGEMENT - SCORE: 6-DEMETRI TRANSFERS: BED, CHAIR, WHEELCHAIR: TRANSFERS: BED, CHAIR, WHEELCHAIR - STEP 1: Does the patient require assistance of a person or device, or need extra time with bed, chair, or whe elchair transfers? Yes. TRANSFERS: BED, CHAIR, WHEELCHAIR - STEP 2: Does the patient require the assistance of a helper? Yes. TRANSFERS: BED, CHAIR, WHEELCHAIR - STEP 3: How much assistance does the patient require from the helper? Steadying/guiding assistance TRANSFERS: BED, CHAIR, WHEELCHAIR - SCORE: 4-MIN TRANSFERS: TOILET: TRANSFERS: TOILET - STEP 1: Does the patient require the assistance of a person or device, or need extra time with toilet transfe rs? Yes. TRANSFERS: TOILET - STEP 2: Does the patient require the assistance of a helper? Yes. TRANSFERS: TOILET - STEP 3: How much assistance does the patient require from the helper? Only supervision, cuing, coaxing, OR he lp to set out transfer equipment or to lock brakes and/or lift foot rests TRANSFERS: TOILET - SCORE: 5-SUP TRANSFERS: SHOWER: Activity did not occur on this shift TRANSFERS: SHOWER - SCORE: 0-UNK TRANSFERS: TUB: Activity did not occur on this shift TRANSFERS: TUB - SCORE: 0-UNK LOCOMOTION: WALK: Activity did not occur on this shift LOCOMOTION: WALK - SCORE: 0-UNK LOCOMOTION: WHEELCHAIR: Activity did not occur on this shift LOCOMOTION: WHEELCHAIR - SCORE: 0-UNK COMPREHENSION: COMPREHENSION: TYPE: Both COMPREHENSION - STEP 1: Does the patient require help from a person or device, or need extra time to understand complex and a bstract ideas (such as current events, finances, discharge planning, medical issues, relationships, e tc)? No. COMPREHENSION - STEP 2: Does the patient need extra time, require an assistive device (such as glasses for visual comprehensi on or a hearing aid for auditory comprehension) or does s/he have mild difficulty understanding compl ex and abstract information? Yes. COMPREHENSION - SCORE: 6-DEMETRI EXPRESSION EXPRESSION: TYPE: Both EXPRESSION - STEP 1: Does the patient require help from a person or device, or need extra time expressing complex and abst ract ideas (such as current events, finances, discharge planning, medical issues, relationships, etc) ? No. EXPRESSION - STEP 2: Does the patient need extra time, require an assistive device (such as augmentive communication syste m or a communication board), OR does s/he have mild difficulty expressing complex and abstract ideas (including mild dysarthria or mild word-find problems)? No. EXPRESSION - SCORE: 7-IND SOCIAL INTERACTION: SOCIAL INTERACTION - STEP 1: Does the patient require a helper to interact with others in social and therapeutic situations? No. SOCIAL INTERACTION - STEP 2: Does the patient need extra time in social situations, OR does s/he interact with staff, other patien ts, and family members ONLY in structured environments, OR does s/he require medication for social in teraction? Yes, patient needs extra time SOCIAL INTERACTION - SCORE: 6-DEMETRI PROBLEM SOLVING: PROBLEM SOLVING - STEP 1: Does the patient need help from a person or device, or need extra time to solve complex problems such as managing a checking account or confronting interpersonal problems? No. PROBLEM SOLVING - STEP 2: Does the patient require extra time to make decisions or solve problems, OR does s/he have slight dif ficulty reading, initiating, or self-correcting in unfamiliar situations? Yes, patient needs extra ti me. PROBLEM SOLVING - SCORE: 6-DEMETRI MEMORY: MEMORY - STEP 1: Does the patient need help from a person or device, or need extra time to remember frequently encount ered people, daily routines, and executing requests? No. MEMORY - STEP 2: Does the patient have slight difficulty recognizing frequently encountered people, daily routines, or executing requests without the need for repetition or using self-initiated or environmental cues to remember? Yes. MEMORY - SCORE: 6-DEMETRI SIGNATURE PANEL: The following modified sections: Eating - Score, Grooming - Score, Dressing - Upper Body - Score, Malik ssing - Lower Body - Score, Toileting - Score, Bladder Management - Score, Bowel Management - Score, Transfers: Bed, Chair, Wheelchair - Score, Transfers: Toilet - Score, Transfers: Shower - Score, Yeung sfers: Tub - Score, Locomotion: Walk - Score, Locomotion: Wheelchair - Score, Comprehension - Score, Expression - Score, Social Interaction - Score, Problem Solving - Score, Memory - Score were [electro nically] signed by Janee Adan CNA on FriJan 29 2019 01:30:47 GMT-0500 (Central Daylight Time)
[2019-01-29] MEDS: TRAMADOL HCL 50 MG TAB PO PRN ×2 (07:01→19:37)
[2019-01-29] MEDS: LEVOTHYROXINE SOD 0.075 MG TAB PO SCH (07:01)
[2019-01-29] MEDS: MAGNESIUM OXIDE 400 MG TAB PO SCH ×2 (07:01→19:40)
[2019-01-29] MEDS: CRANBERRY FRUIT EXTRACT 200 MG CAP PO SCH ×2 (07:03→19:47)
[2019-01-29] MEDS: GLUCOSAM/CHONDROI 500mg-400mg PO SCH ×2 (07:03→19:38)
[2019-01-29] MEDS: GABAPENTIN 300 MG CAP PO SCH ×2 (07:03→19:38)
[2019-01-29] MEDS: POTASSIUM CL SA 10 MEQ TAB PO SCH (07:03)
[2019-01-29] MEDS: LIDOCAINE 5% PATCH TOP SCH (07:04)
[2019-01-29] MEDS: PROMOD 30 ML DOSE PO SCH ×2 (07:05→19:47)
[2019-01-29] MEDS: JUVEN PACKET PO SCH ×2 (07:05→19:47)
[2019-01-29] MEDS: RIVAROXABAN 10 MG TABLET PO SCH (07:09)
[2019-01-29] MEDS: TORSEMIDE 20 MG TAB PO SCH (07:09)
[2019-01-29] MEDS: THIAMINE HCL 100 MG TABLET PO SCH (07:09)
[2019-01-29] MEDS: RANITIDINE 150 MG TABLET PO SCH ×2 (07:09→19:39)
--- NOTE | 2019-01-29 09:47 | P.RH.PN ---
Estimated Length of Stay: 20 Expected Discharge Date: 02/03/19 Discharge Disposition Plan: Home Family Support: Yes Custodial Goal: Mobility, Transfers, Self Care Vital Signs: Last Vital Signs Temp 97.0 F 01/29/19 09:11 Pulse 67 01/29/19 09:11 Resp 16 01/29/19 09:11 BP 126/66 01/29/19 09:11 Pulse Ox 98 01/29/19 09:11 Laboratory: Laboratory Last Values WBC 7.5 K/uL (4.3-10.9) 01/28/19 06:10 RBC 4.00 M/uL (3.86-4.86) 01/28/19 06:10 Hgb 12.3 g/dL (12.0-15.0) 01/28/19 06:10 Hct 36.9 % (36.0-45.0) 01/28/19 06:10 MCV 92.2 fL (80-100) 01/28/19 06:10 MCH 30.8 pg (27.0-35.0) 01/28/19 06:10 MCHC 33.4 g/dL (32.0-36.0) 01/28/19 06:10 RDW 12.9 % (12.1-15.2) 01/28/19 06:10 Plt Count 376 K/uL (152-406) D 01/28/19 06:10 MPV 8.1 fL (7.6-11.3) 01/28/19 06:10 Neutrophils % 55.1 % (41.7-73.7) 01/28/19 06:10 Lymphocytes % 30.7 % (15.3-44.8) 01/28/19 06:10 Monocytes % 9.7 % (3.3-12.3) 01/28/19 06:10 Eosinophils % 3.5 % (0-4.4) 01/28/19 06:10 Basophils % 1.0 % (0-1.3) 01/28/19 06:10 Absolute Neutrophils 4.1 K/uL (1.8-8.0) 01/28/19 06:10 Absolute Lymphocytes 2.3 K/uL (0.7-4.9) 01/28/19 06:10 Absolute Monocytes 0.7 K/uL (0.1-1.3) 01/28/19 06:10 Absolute Eosinophils 0.3 K/uL (0-0.5) 01/28/19 06:10 Absolute Basophils 0.1 K/uL (0-0.5) 01/28/19 06:10 Diff Path Review Cancelled 01/16/19 05:00 D-Dimer 3427 FEUng/mL (<500) H* 01/16/19 11:02 Sodium 142 mmol/L (136-145) 01/28/19 06:55 Potassium 3.7 mmol/L (3.5-5.1) 01/28/19 06:55 Chloride 104 mmol/L (98-107) 01/28/19 06:55 Carbon Dioxide 33 mmol/L (21-32) H 01/28/19 06:55 BUN 19 mg/dL (7-18) H 01/28/19 06:55 Creatinine 0.62 mg/dL (0.55-1.3) 01/28/19 06:55 Estimated GFR > 90 mL/min (=/>90) 01/28/19 06:55 Glucose 86 mg/dL (74-106) 01/28/19 06:55 POC Glucose 95 mg/dl (65-120) 01/22/19 09:16 Calcium 9.2 mg/dL (8.5-10.1) 01/28/19 06:55 Magnesium 2.5 mg/dL (1.8-2.4) H 01/28/19 06:55 NT-Pro-B Natriuret Pep 510 pg/mL (<450) H 01/16/19 11:02 Albumin 3.3 g/dL (3.4-5.0) L 01/28/19 06:55 Prealbumin 22.4 mg/dL (20-40) 01/28/19 06:55 Urine Color Yellow 01/25/19 14:23 Urine Appearance Clear 01/25/19 14:23 Urine pH 6.0 (5.0-7.0) 01/25/19 14:23 Ur Specific Marion 1.010 (1.005-1.030) 01/25/19 14:23 Urine Ketones Negative (NEG) 01/25/19 14:23 Urine Blood Negative (NEG) 01/25/19 14:23 Urine Nitrite Negative (NEG) 01/25/19 14:23 Urine Bilirubin Negative (NEG) 01/25/19 14:23 Urine Urobilinogen 0.2 mg/dL (0.2-1.0) 01/25/19 14:23 Ur Leukocyte Esterase Negative (NEG) 01/25/19 14:23 Urine RBC <5 /HPF (NONE SEEN) 01/25/19 14:23 Urine WBC <5 /HPF (<5) 01/25/19 14:23 Ur Squamous Epith Cells <5 /HPF (NONE SEEN) 01/25/19 14:23 Ur Urothelial Cells <5 /HPF (NONE SEEN) 01/25/19 14:23 Urine Bacteria <20 /HPF (<20) 01/25/19 14:23 Hyaline Casts 0-5 /LPF (NONE SEEN) 01/25/19 14:23 Urine Mucus 1+ /HPF (NONE SEEN) 01/18/19 14:30 Urine Culture Reflexed Not needed 01/25/19 14:23 Urine Glucose Negative (NEG) 01/25/19 14:23 Urine Total Protein Negative (NEG) 01/25/19 14:23 Weight: 157 lb 9.6 oz Wound Present: No Closed Surgical Incision Present: Yes Negative Pressure Wound Therapy Present: No Physician Update: Labs reviewed and are stable. She is doing well with PT, contact guard 150' with TDWB status. Daughter is here and being trained to help at home. Mary assitance for ADLs. Tub transfer bench ordered. Medical Issues: DVT Prophylaxis - Xarelto 10mg Daily Pain Issues: Gabapentin 300mg BID PO. Tramadol 100mg Q4H PRN PO. Lidoderm patch 5% Daily Functional Improvement: Patient has met all short-term goals at this time and is progressing well toward long-term goals. Patient's daughter has been being educated on proper technique for transfers and gait tx.; also has been providing the guarding for these tasks. Functional Improvement Occupational Therapy: Pt can benifit with further therapy to address pt's weakness and cont to increase pt's overall weakness and for UB strength for assistance for sit to stands and using the RW for all functional transfers. Cont to increase pt's safety awareness and energy conservation techniques for all adl tasks by training pt and educating pt to use A/E as needed. Cont to address pt's static standing balance for clothing mgmt and for bathing tasks. Cont with the POC and the goals by the supervising OTR Summary: Patient's care plan and penitentiary goals have been reviewed and revised as necessary. Please see the Rehabilitation Signature page for all necessary signatures.
--- NOTE | 2019-01-29 11:14 | FAST ---
SHIFT START DATE/TIME: 01/29/2019 07:00 (CDT) SHIFT END DATE/TIME: 01/29/2019 19:00 (CDT) NAME CELSO MADISON DATE OF : 1935 DATE OF ADMISSION: 01/15/2019 16:46 (CDT) PHONE: AGE: 83 SSN# [id number] GENDER: Female ENCOUNTER PHYSICIAN: Dr. Raúl Llanes M.D. ADMISSION DIAGNOSIS: - Orthopaedic Disorders 08 - Unilateral Hip Fracture (08.11) RIGHT MINIMALLY DISPLACED FEMORAL NECK FRACTURE JUST BELOW THE HEAD. EATING: EATING - STEP 1: Does the patient require the assistance of a person or device, or need extra time when eating? Yes. EATING - STEP 2: Does the patient require the assistance of a helper? No, patient only requires an assistive device, O R s/he takes more than reasonable time to eat, OR there is a safety concern, OR s/he requires modifie d food consistency EATING - SCORE: 6-DEMETRI GROOMING: Comb/brush hair Oral care Wash, rinse, and dry face Wash, rinse, and dry hands GROOMING - STEP 1: Does the patient require the assistance of a person or device, or need extra time when grooming? Yes. GROOMING - STEP 2: Does the patient require the assistance of a helper? No. The patient only requires an assistive devic e, OR takes more than reasonable time to groom, OR there is a concern for safety as the patient groom s GROOMING - SCORE: 6-DEMETRI BATHING: Activity did not occur on this shift BATHING - SCORE: 0-UNK DRESSING - UPPER BODY: Activity did not occur on this shift ARTICLES SCORE Total number of steps: 0 DRESSING - UPPER BODY - SCORE: 0-UNK DRESSING - LOWER BODY: Activity did not occur on this shift ARTICLES SCORE Total number of steps: 0 DRESSING - LOWER BODY - SCORE: 0-UNK TOILETING: TOILETING - STEP 1: Does the patient require the assistance of a person or device, or need extra time with toileting? Yes . TOILETING - STEP 2: Does the patient require the assistance of a helper? Yes. TOILETING - STEP 3: How much assistance does the patient require from the helper? Only supervision TOILETING - STEP 4: Of the 3 tasks: 1) Adjusting clothing prior to use, 2) Cleansing of perineal area, 3) Adjusting clot alejandro after use; How many tasks does the patient perform WITHOUT assistance of the helper? Two tasks TOILETING - SCORE: 5-SUP BLADDER MANAGEMENT: BLADDER MANAGEMENT - STEP 1: Does the patient control the bladder completely and intentionally without equipment or devices or med ications, and is always continent? No. BLADDER MANAGEMENT - STEP 2: Does the patient require the assistance of a helper? No, patient requires and independently uses an a ssistive device, such as a urinal, bedpan, bedside commode, catheter, absorbent pad, or collecting de vice BLADDER MANAGEMENT - SCORE: 6-DEMETRI BOWEL MANAGEMENT: Activity did not occur on this shift BOWEL MANAGEMENT - SCORE: 7-IND TRANSFERS: BED, CHAIR, WHEELCHAIR: TRANSFERS: BED, CHAIR, WHEELCHAIR - STEP 1: Does the patient require assistance of a person or device, or need extra time with bed, chair, or whe elchair transfers? Yes. TRANSFERS: BED, CHAIR, WHEELCHAIR - STEP 2: Does the patient require the assistance of a helper? Yes. TRANSFERS: BED, CHAIR, WHEELCHAIR - STEP 3: How much assistance does the patient require from the helper? Only supervision TRANSFERS: BED, CHAIR, WHEELCHAIR - SCORE: 5-SUP TRANSFERS: TOILET: TRANSFERS: TOILET - STEP 1: Does the patient require the assistance of a person or device, or need extra time with toilet transfe rs? Yes. TRANSFERS: TOILET - STEP 2: Does the patient require the assistance of a helper? Yes. TRANSFERS: TOILET - STEP 3: How much assistance does the patient require from the helper? Only supervision, cuing, coaxing, OR he lp to set out transfer equipment or to lock brakes and/or lift foot rests TRANSFERS: TOILET - SCORE: 5-SUP TRANSFERS: SHOWER: Activity did not occur on this shift TRANSFERS: SHOWER - SCORE: 0-UNK TRANSFERS: TUB: Activity did not occur on this shift TRANSFERS: TUB - SCORE: 0-UNK LOCOMOTION: WALK: Activity did not occur on this shift LOCOMOTION: WALK - SCORE: 0-UNK LOCOMOTION: WHEELCHAIR: Activity did not occur on this shift LOCOMOTION: WHEELCHAIR - SCORE: 0-UNK COMPREHENSION: COMPREHENSION: TYPE: Both COMPREHENSION - STEP 1: Does the patient require help from a person or device, or need extra time to understand complex and a bstract ideas (such as current events, finances, discharge planning, medical issues, relationships, e tc)? No. COMPREHENSION - STEP 2: Does the patient need extra time, require an assistive device (such as glasses for visual comprehensi on or a hearing aid for auditory comprehension) or does s/he have mild difficulty understanding compl ex and abstract information? Yes. COMPREHENSION - SCORE: 6-DEMETRI EXPRESSION EXPRESSION: TYPE: Both EXPRESSION - STEP 1: Does the patient require help from a person or device, or need extra time expressing complex and abst ract ideas (such as current events, finances, discharge planning, medical issues, relationships, etc) ? No. EXPRESSION - STEP 2: Does the patient need extra time, require an assistive device (such as augmentive communication syste m or a communication board), OR does s/he have mild difficulty expressing complex and abstract ideas (including mild dysarthria or mild word-find problems)? No. EXPRESSION - SCORE: 7-IND SOCIAL INTERACTION: SOCIAL INTERACTION - STEP 1: Does the patient require a helper to interact with others in social and therapeutic situations? No. SOCIAL INTERACTION - STEP 2: Does the patient need extra time in social situations, OR does s/he interact with staff, other patien ts, and family members ONLY in structured environments, OR does s/he require medication for social in teraction? No. SOCIAL INTERACTION - SCORE: 7-IND PROBLEM SOLVING: PROBLEM SOLVING - STEP 1: Does the patient need help from a person or device, or need extra time to solve complex problems such as managing a checking account or confronting interpersonal problems? No. PROBLEM SOLVING - STEP 2: Does the patient require extra time to make decisions or solve problems, OR does s/he have slight dif ficulty reading, initiating, or self-correcting in unfamiliar situations? No. PROBLEM SOLVING - SCORE: 7-IND MEMORY: MEMORY - STEP 1: Does the patient need help from a person or device, or need extra time to remember frequently encount ered people, daily routines, and executing requests? No. MEMORY - STEP 2: Does the patient have slight difficulty recognizing frequently encountered people, daily routines, or executing requests without the need for repetition or using self-initiated or environmental cues to remember? No. MEMORY - SCORE: 7-IND SIGNATURE PANEL: The following modified sections: Eating - Score, Grooming - Score, Bathing - Score, Dressing - Upper Body - Score, Dressing - Lower Body - Score, Toileting - Score, Bladder Management - Score, Bowel Man agement - Score, Transfers: Bed, Chair, Wheelchair - Score, Transfers: Toilet - Score, Transfers: Maggi wer - Score, Transfers: Tub - Score, Locomotion: Walk - Score, Locomotion: Wheelchair - Score, Compre hension - Score, Expression - Score, Social Interaction - Score, Problem Solving - Score, Memory - Sc ore were [electronically] signed by Romeo Mcrae on FriJan 29 2019 11:14:01 GMT-0500 (Central Daylight Time)
--- NOTE | 2019-01-29 14:37 | FAST ---
ENCOUNTER DATE AND TIME: 01/29/2019 08:00 (CDT) NAME CELSO MADISON DATE OF : 1935 DATE OF ADMISSION: 01/15/2019 16:46 (CDT) PHONE: AGE: 83 SSN# [id number] GENDER: Female ENCOUNTER PHYSICIAN: Dr. Raúl Llanes M.D. ADMISSION DIAGNOSIS: - Orthopaedic Disorders 08 - Unilateral Hip Fracture (08.11) RIGHT MINIMALLY DISPLACED FEMORAL NECK FRACTURE JUST BELOW THE HEAD. EATING: Activity did not occur on this shift EATING - SCORE: 0-UNK GROOMING: Comb/brush hair Oral care Patient applied make-up Wash, rinse, and dry face Wash, rinse, and dry hands GROOMING - STEP 1: Does the patient require the assistance of a person or device, or need extra time when grooming? No. GROOMING - SCORE: 7-IND BATHING: Abdomen Buttocks Chest Left arm Left lower leg and foot Left upper leg Perineal area Right arm Right lower leg and foot Right upper leg BATHING - STEP 1: Does the patient require the assistance of a person or device, or need extra time when bathing? Yes. BATHING - STEP 2: Does the patient require the assistance of a helper? Yes. BATHING - STEP 3: How much assistance does the patient require from the helper? Only supervision, cuing, coaxing, instr uctions, encouragement BATHING - SCORE: 5-SUP DRESSING - UPPER BODY: Button down shirt or blouse - NOT tucked in (four steps) T-shirt/pullover shirt (four steps) ARTICLES SCORE Total number of steps: 8 DRESSING - UPPER BODY - STEP 1: Does the patient require help from a person or device, or need extra time when dressing above the coni st? Yes. DRESSING - UPPER BODY - STEP 2: Does the patient require the assistance of a helper? Yes. DRESSING - UPPER BODY - STEP 3: Does the helper touch the patient while dressing? No. DRESSING - UPPER BODY - SCORE: 5-SUP DRESSING - LOWER BODY: Elastic waist pants (three steps) Sock - Left foot (one step) Sock - Right foot (one step) Underwear (three steps) ARTICLES SCORE Total number of steps: 8 DRESSING - LOWER BODY - STEP 1: Does the patient require help from a person or device, or need extra time when dressing below the coni st? Yes. DRESSING - LOWER BODY - STEP 2: Does the patient require the assistance of a helper? Yes. DRESSING - LOWER BODY - STEP 3: Does the helper touch the patient while dressing? No. DRESSING - LOWER BODY - SCORE: 5-SUP TOILETING: Activity did not occur on this shift TOILETING - SCORE: 0-UNK BLADDER MANAGEMENT: Activity did not occur on this shift BLADDER MANAGEMENT - SCORE: 7-IND BOWEL MANAGEMENT: Activity did not occur on this shift BOWEL MANAGEMENT - SCORE: 7-IND TRANSFERS: BED, CHAIR, WHEELCHAIR: Activity did not occur on this shift TRANSFERS: BED, CHAIR, WHEELCHAIR - SCORE: 0-UNK TRANSFERS: TOILET: Activity did not occur on this shift TRANSFERS: TOILET - SCORE: 0-UNK TRANSFERS: SHOWER: Activity did not occur on this shift TRANSFERS: SHOWER - SCORE: 0-UNK TRANSFERS: TUB: TRANSFERS: TUB - STEP 1: Does the patient require the assistance of a person or device, or need extra time with tub transfers? Yes. TRANSFERS: TUB - STEP 2: Does the patient require the assistance of a helper? Yes. TRANSFERS: TUB - STEP 3: How much assistance does the patient require from the helper? Only supervision, cuing, coaxing, or he lp to set out transfer equipment or to lock brakes and/or lift foot rests TRANSFERS: TUB - SCORE: 5-SUP LOCOMOTION: WALK: Activity did not occur on this shift LOCOMOTION: WALK - SCORE: 0-UNK LOCOMOTION: WHEELCHAIR: Activity did not occur on this shift LOCOMOTION: WHEELCHAIR - SCORE: 0-UNK LOCOMOTION: STAIRS: Activity did not occur on this shift LOCOMOTION: STAIRS - SCORE: 0-UNK COMPREHENSION: COMPREHENSION: TYPE: Visual COMPREHENSION - STEP 1: Does the patient require help from a person or device, or need extra time to understand complex and a bstract ideas (such as current events, finances, discharge planning, medical issues, relationships, e tc)? No. COMPREHENSION - STEP 2: Does the patient need extra time, require an assistive device (such as glasses for visual comprehensi on or a hearing aid for auditory comprehension) or does s/he have mild difficulty understanding compl ex and abstract information? No. COMPREHENSION - SCORE: 7-IND EXPRESSION EXPRESSION: TYPE: Non-Vocal EXPRESSION - STEP 1: Does the patient require help from a person or device, or need extra time expressing complex and abst ract ideas (such as current events, finances, discharge planning, medical issues, relationships, etc) ? No. EXPRESSION - STEP 2: Does the patient need extra time, require an assistive device (such as augmentive communication syste m or a communication board), OR does s/he have mild difficulty expressing complex and abstract ideas (including mild dysarthria or mild word-find problems)? No. EXPRESSION - SCORE: 7-IND SOCIAL INTERACTION: SOCIAL INTERACTION - STEP 1: Does the patient require a helper to interact with others in social and therapeutic situations? No. SOCIAL INTERACTION - STEP 2: Does the patient need extra time in social situations, OR does s/he interact with staff, other patien ts, and family members ONLY in structured environments, OR does s/he require medication for social in teraction? No. SOCIAL INTERACTION - SCORE: 7-IND PROBLEM SOLVING: PROBLEM SOLVING - STEP 1: Does the patient need help from a person or device, or need extra time to solve complex problems such as managing a checking account or confronting interpersonal problems? No. PROBLEM SOLVING - STEP 2: Does the patient require extra time to make decisions or solve problems, OR does s/he have slight dif ficulty reading, initiating, or self-correcting in unfamiliar situations? No. PROBLEM SOLVING - SCORE: 7-IND MEMORY: MEMORY - STEP 1: Does the patient need help from a person or device, or need extra time to remember frequently encount ered people, daily routines, and executing requests? No. MEMORY - STEP 2: Does the patient have slight difficulty recognizing frequently encountered people, daily routines, or executing requests without the need for repetition or using self-initiated or environmental cues to remember? No. MEMORY - SCORE: 7-IND SIGNATURE PANEL: The following modified sections: Eating - Score, Grooming - Score, Bathing - Score, Dressing - Upper Body - Score, Dressing - Lower Body - Score, Toileting - Score, Transfers: Bed, Chair, Wheelchair - S core, Transfers: Toilet - Score, Transfers: Shower - Score, Transfers: Tub - Score, Comprehension - S core, Expression - Score, Social Interaction - Score, Problem Solving - Score, Memory - Score were [e lectronically] signed by LLUVIA Vickers on FriJan 29 2019 14:36:40 T-0500 ([facility] Time)
--- NOTE | 2019-01-29 14:47 | P.PN ---
Subjective Date of Service: 01/29/19 Chief Complaint: FEELS GOOD. Subjective: Improving SHE IS STABLE,COMFORTABLE, HAS SOME DYSPNEA WITHOUT OXYGEN. CHR DJD. SHE LOVES HER CONCOCTION MADE FROM [employer] AND SHE WILL GET IT HERE. NO CHEST PAIN. TODAY SHE IS FEELING A LOT BETTER. URINARY FREQUENCEY IS LESSER. SOME DIZZINESS FROM ABX. NO PAIN,NO FEVER. SHE IS STABLE. NO COMPLAINTS , WALKS BETTER, STILL WEAK, THINKING OF NH FOR A WHILE. NO NEW ISSUES. R KNEE PAIN. MODERATE. PAIN IS BETTER NOW. Physical Examination - Vital Signs Temperature: 97.0 F Blood Pressure: 126/66 Pulse: 67 Respirations: 16 Pulse Ox (%): 98 - Studies Medications List Reviewed: Yes Assessment And Plan - Current Problems (Diagnosis) (1) DJD (degenerative joint disease) Current Visit: Yes Status: Chronic Plan: 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 SHE WILL AVOID NSAIDS. TRY COSAMINE ASU. R KNEE MAY NEED TKR LATER. 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 ON AC XARELTO. Qualifiers: Encounter type: subsequent encounter (4) Dyspnea Current Visit: Yes Status: Acute Plan: CHECK BNP , D DIMER CXR ALB, ATROVENT NEBS. STABLE FOR NOW. ORDER CT ANGIO AND VENOUS DOPPLER. SHE IS POST OP. SHE MAY NOT HAVE PE BUT AT RISK FOR NOW. (5) ESBL (extended spectrum beta-lactamase) producing bacteria infection Current Visit: Yes Status: Acute Plan: IT IS MOST LIKELY CONTAMINANT. FIRST UA WAS POSITIVE BUT WAS SO CALLED CLEAN CATCH. SECOND UA I ASKED FOR SPECICATH AND WAS TOTALLY NORMAL. 3RD UA WAS POSITIVE IN REHAB BUT WAS CLEAN CATCH THAT IS NOT USUALLY CLEAN IN WOMEN. I ASKED FOR SPECICATH AND THAT IS UA POSITIVE BUT SHE REALLY HAS NO SYMPTOMS EXCEPT WBC IS MILD HIGHER. THIS IS THE ONLY REASON I WILL TREAT UNTIL CULTURE COMES BACK. POSITIVE UA WITHOUT SYMPTOMS DOES NOT NEED TREATMENT. SHE IS BETTER ON CIPRO. TO CONTINUE FOR A WEEK. ESBL WAS A COLONIZED BACTERIA IT WAS COLLECTED WHAT I CALL UN-CLEAN. SPECICATH SHOWED REGULAR E COLI AND NOT ESBL.
--- NOTE | 2019-01-29 15:39 | FAST ---
ENCOUNTER DATE AND TIME: 01/29/2019 08:00 (CDT) NAME CELSO MADISON DATE OF : 1935 DATE OF ADMISSION: 01/15/2019 16:46 (CDT) PHONE: AGE: 83 SSN# [id number] GENDER: Female ENCOUNTER PHYSICIAN: Dr. Raúl lLanes M.D. ADMISSION DIAGNOSIS: - Orthopaedic Disorders 08 - Unilateral Hip Fracture (08.11) RIGHT MINIMALLY DISPLACED FEMORAL NECK FRACTURE JUST BELOW THE HEAD. EATING: Activity did not occur on this shift EATING - SCORE: 0-UNK GROOMING: Activity did not occur on this shift GROOMING - SCORE: 0-UNK BATHING: Activity did not occur on this shift BATHING - SCORE: 0-UNK DRESSING - UPPER BODY: Activity did not occur on this shift Patient is not dressing in public clothing ARTICLES SCORE Total number of steps: 0 DRESSING - UPPER BODY - SCORE: 0-UNK DRESSING - LOWER BODY: Activity did not occur on this shift Patient is not dressing in public clothing ARTICLES SCORE Total number of steps: 0 DRESSING - LOWER BODY - SCORE: 0-UNK TOILETING: Activity did not occur on this shift TOILETING - SCORE: 0-UNK BLADDER MANAGEMENT: Activity did not occur on this shift BLADDER MANAGEMENT - SCORE: 7-IND BOWEL MANAGEMENT: Activity did not occur on this shift BOWEL MANAGEMENT - SCORE: 7-IND TRANSFERS: BED, CHAIR, WHEELCHAIR: TRANSFERS: BED, CHAIR, WHEELCHAIR - STEP 1: Does the patient require assistance of a person or device, or need extra time with bed, chair, or whe elchair transfers? Yes. TRANSFERS: BED, CHAIR, WHEELCHAIR - STEP 2: Does the patient require the assistance of a helper? Yes. TRANSFERS: BED, CHAIR, WHEELCHAIR - STEP 3: How much assistance does the patient require from the helper? Only supervision TRANSFERS: BED, CHAIR, WHEELCHAIR - SCORE: 5-SUP TRANSFERS: TOILET: Activity did not occur on this shift TRANSFERS: TOILET - SCORE: 0-UNK TRANSFERS: SHOWER: Activity did not occur on this shift TRANSFERS: SHOWER - SCORE: 0-UNK TRANSFERS: TUB: Activity did not occur on this shift TRANSFERS: TUB - SCORE: 0-UNK LOCOMOTION: WALK: LOCOMOTION: WALK - STEP 1: Does the patient need help from a person or device, or need extra time to walk 150 feet? Yes. LOCOMOTION: WALK - STEP 2: How much assistance does the patient require to walk a minimum of 150 feet? Patient walks less than 1 50 feet - but more than 50 feet - with the assistance of only one helper LOCOMOTION: WALK - SCORE: 2-MAX LOCOMOTION: WHEELCHAIR: LOCOMOTION: WHEELCHAIR - STEP 1: Does the patient need help to go 150 feet in a wheelchair? No. LOCOMOTION: WHEELCHAIR - SCORE: 6-DEMETRI LOCOMOTION: STAIRS: Activity did not occur on this shift LOCOMOTION: STAIRS - SCORE: 0-UNK COMPREHENSION: COMPREHENSION - SCORE: 0-UNK EXPRESSION EXPRESSION - SCORE: 0-UNK SOCIAL INTERACTION: SOCIAL INTERACTION - SCORE: 0-UNK PROBLEM SOLVING: PROBLEM SOLVING - SCORE: 0-UNK MEMORY: MEMORY - SCORE: 0-UNK SIGNATURE PANEL: The following modified sections: Transfers: Bed, Chair, Wheelchair - Score, Transfers: Toilet - Score , Locomotion: Walk - Score, Locomotion: Wheelchair - Score, Locomotion: Stairs - Score were [electron chitra] signed by Chris Leonard PT on FriJan 29 2019 15:38:57 T-0500 (Central Daylight Time)
[2019-01-29] MEDS: BACLOFEN 10 MG TAB PO SCH (23:27)
--- NOTE | 2019-01-30 02:17 | FAST ---
SHIFT START DATE/TIME: 01/29/2019 19:00 (CDT) SHIFT END DATE/TIME: 01/30/2019 07:00 (CDT) NAME CELSO MADISON DATE OF : 1935 DATE OF ADMISSION: 01/15/2019 16:46 (CDT) PHONE: AGE: 83 SSN# [id number] GENDER: Female ENCOUNTER PHYSICIAN: Dr. Raúl Llanes M.D. ADMISSION DIAGNOSIS: - Orthopaedic Disorders 08 - Unilateral Hip Fracture (08.11) RIGHT MINIMALLY DISPLACED FEMORAL NECK FRACTURE JUST BELOW THE HEAD. EATING: Activity did not occur on this shift EATING - SCORE: 0-UNK GROOMING: Comb/brush hair Oral care Wash, rinse, and dry face Wash, rinse, and dry hands GROOMING - STEP 1: Does the patient require the assistance of a person or device, or need extra time when grooming? Yes. GROOMING - STEP 2: Does the patient require the assistance of a helper? No. The patient only requires an assistive devic e, OR takes more than reasonable time to groom, OR there is a concern for safety as the patient groom s GROOMING - SCORE: 6-DEMETRI BATHING: Activity did not occur on this shift BATHING - SCORE: 0-UNK DRESSING - UPPER BODY: Patient is not dressing in public clothing ARTICLES SCORE Total number of steps: 0 DRESSING - UPPER BODY - SCORE: 0-UNK DRESSING - LOWER BODY: Patient is not dressing in public clothing ARTICLES SCORE Total number of steps: 0 DRESSING - LOWER BODY - SCORE: 0-UNK TOILETING: TOILETING - STEP 1: Does the patient require the assistance of a person or device, or need extra time with toileting? Yes . TOILETING - STEP 2: Does the patient require the assistance of a helper? Yes. TOILETING - STEP 3: How much assistance does the patient require from the helper? Hands-on assistance from the helper TOILETING - STEP 4: Of the 3 tasks: 1) Adjusting clothing prior to use, 2) Cleansing of perineal area, 3) Adjusting clot alejandro after use; How many tasks does the patient perform WITHOUT assistance of the helper? Three tasks with steadying assistance from the helper TOILETING - SCORE: 4-MIN BLADDER MANAGEMENT: BLADDER MANAGEMENT - STEP 1: Does the patient control the bladder completely and intentionally without equipment or devices or med ications, and is always continent? No. BLADDER MANAGEMENT - STEP 2: Does the patient require the assistance of a helper? No, patient requires and independently uses an a ssistive device, such as a urinal, bedpan, bedside commode, catheter, absorbent pad, or collecting de vice BLADDER MANAGEMENT - SCORE: 6-DEMETRI BOWEL MANAGEMENT: Activity did not occur on this shift BOWEL MANAGEMENT - SCORE: 7-IND TRANSFERS: BED, CHAIR, WHEELCHAIR: TRANSFERS: BED, CHAIR, WHEELCHAIR - STEP 1: Does the patient require assistance of a person or device, or need extra time with bed, chair, or whe elchair transfers? Yes. TRANSFERS: BED, CHAIR, WHEELCHAIR - STEP 2: Does the patient require the assistance of a helper? Yes. TRANSFERS: BED, CHAIR, WHEELCHAIR - STEP 3: How much assistance does the patient require from the helper? Steadying/guiding assistance TRANSFERS: BED, CHAIR, WHEELCHAIR - SCORE: 4-MIN TRANSFERS: TOILET: TRANSFERS: TOILET - STEP 1: Does the patient require the assistance of a person or device, or need extra time with toilet transfe rs? Yes. TRANSFERS: TOILET - STEP 2: Does the patient require the assistance of a helper? Yes. TRANSFERS: TOILET - STEP 3: How much assistance does the patient require from the helper? Only supervision, cuing, coaxing, OR he lp to set out transfer equipment or to lock brakes and/or lift foot rests TRANSFERS: TOILET - SCORE: 5-SUP TRANSFERS: SHOWER: Activity did not occur on this shift TRANSFERS: SHOWER - SCORE: 0-UNK TRANSFERS: TUB: Activity did not occur on this shift TRANSFERS: TUB - SCORE: 0-UNK LOCOMOTION: WALK: Activity did not occur on this shift LOCOMOTION: WALK - SCORE: 0-UNK LOCOMOTION: WHEELCHAIR: Activity did not occur on this shift LOCOMOTION: WHEELCHAIR - SCORE: 0-UNK COMPREHENSION: COMPREHENSION: TYPE: Both COMPREHENSION - STEP 1: Does the patient require help from a person or device, or need extra time to understand complex and a bstract ideas (such as current events, finances, discharge planning, medical issues, relationships, e tc)? No. COMPREHENSION - STEP 2: Does the patient need extra time, require an assistive device (such as glasses for visual comprehensi on or a hearing aid for auditory comprehension) or does s/he have mild difficulty understanding compl ex and abstract information? Yes. COMPREHENSION - SCORE: 6-DEMETRI EXPRESSION EXPRESSION: TYPE: Both EXPRESSION - STEP 1: Does the patient require help from a person or device, or need extra time expressing complex and abst ract ideas (such as current events, finances, discharge planning, medical issues, relationships, etc) ? No. EXPRESSION - STEP 2: Does the patient need extra time, require an assistive device (such as augmentive communication syste m or a communication board), OR does s/he have mild difficulty expressing complex and abstract ideas (including mild dysarthria or mild word-find problems)? Yes. EXPRESSION - SCORE: 6-DEMETRI SOCIAL INTERACTION: SOCIAL INTERACTION - STEP 1: Does the patient require a helper to interact with others in social and therapeutic situations? No. SOCIAL INTERACTION - STEP 2: Does the patient need extra time in social situations, OR does s/he interact with staff, other patien ts, and family members ONLY in structured environments, OR does s/he require medication for social in teraction? Yes, patient needs extra time SOCIAL INTERACTION - SCORE: 6-DEMETRI PROBLEM SOLVING: PROBLEM SOLVING - STEP 1: Does the patient need help from a person or device, or need extra time to solve complex problems such as managing a checking account or confronting interpersonal problems? Yes. PROBLEM SOLVING - STEP 2: Does the patient solve basic routine problems half or more of the time? Yes. PROBLEM SOLVING - STEP 3: How often does the patient need help to solve basic routine problems? Less than 10% of the time PROBLEM SOLVING - SCORE: 5-SUP MEMORY: MEMORY - STEP 1: Does the patient need help from a person or device, or need extra time to remember frequently encount ered people, daily routines, and executing requests? No. MEMORY - STEP 2: Does the patient have slight difficulty recognizing frequently encountered people, daily routines, or executing requests without the need for repetition or using self-initiated or environmental cues to remember? Yes. MEMORY - SCORE: 6-DEMETRI
[2019-01-30 05:37] VITALS: BMI 28.0
[2019-01-30] MEDS: LEVOTHYROXINE SOD 0.075 MG TAB PO SCH (06:20)
[2019-01-30] MEDS: RANITIDINE 150 MG TABLET PO SCH ×2 (06:20→16:03)
[2019-01-30] MEDS: TRAMADOL HCL 50 MG TAB PO PRN ×4 (08:18→21:03)
[2019-01-30] MEDS: RIVAROXABAN 10 MG TABLET PO SCH (08:19)
[2019-01-30] MEDS: GLUCOSAM/CHONDROI 500mg-400mg PO SCH ×2 (08:19→20:18)
[2019-01-30] MEDS: GABAPENTIN 300 MG CAP PO SCH ×2 (08:19→20:19)
[2019-01-30] MEDS: THIAMINE HCL 100 MG TABLET PO SCH (08:19)
[2019-01-30] MEDS: TORSEMIDE 20 MG TAB PO SCH (08:20)
[2019-01-30] MEDS: PROMOD 30 ML DOSE PO SCH ×2 (08:20→20:19)
[2019-01-30] MEDS: MAGNESIUM OXIDE 400 MG TAB PO SCH ×2 (08:20→20:18)
[2019-01-30] MEDS: JUVEN PACKET PO SCH ×2 (08:21→20:19)
[2019-01-30] MEDS: CRANBERRY FRUIT EXTRACT 200 MG CAP PO SCH ×2 (08:21→20:18)
[2019-01-30] MEDS: POTASSIUM CL SA 10 MEQ TAB PO SCH (08:21)
[2019-01-30] MEDS: LIDOCAINE 5% PATCH TOP SCH (08:21)
--- NOTE | 2019-01-30 09:07 | FAST ---
SHIFT START DATE/TIME: 01/30/2019 07:00 (CDT) SHIFT END DATE/TIME: 01/30/2019 19:00 (CDT) NAME CELSO MADISON DATE OF : 1935 DATE OF ADMISSION: 01/15/2019 16:46 (CDT) PHONE: AGE: 83 N# [id number] GENDER: Female ENCOUNTER PHYSICIAN: Dr. Raúl Llanes M.D. ADMISSION DIAGNOSIS: - Orthopaedic Disorders 08 - Unilateral Hip Fracture (08.11) RIGHT MINIMALLY DISPLACED FEMORAL NECK FRACTURE JUST BELOW THE HEAD. EATING: EATING - STEP 1: Does the patient require the assistance of a person or device, or need extra time when eating? Yes. EATING - STEP 2: Does the patient require the assistance of a helper? Yes. EATING - STEP 3: Does the patient perform half or more of the eating tasks? Yes. EATING - STEP 4: Does the patient need only supervision, cuing, coaxing OR help to apply an orthosis OR help to cut fo od, open containers, pour liquids, or butter bread? Yes. EATING - SCORE: 5-SUP GROOMING: Activity did not occur on this shift GROOMING - SCORE: 0-UNK BATHING: Activity did not occur on this shift BATHING - SCORE: 0-UNK DRESSING - UPPER BODY: Activity did not occur on this shift ARTICLES SCORE Total number of steps: 0 DRESSING - UPPER BODY - SCORE: 0-UNK DRESSING - LOWER BODY: Activity did not occur on this shift ARTICLES SCORE Total number of steps: 0 DRESSING - LOWER BODY - SCORE: 0-UNK TOILETING: TOILETING - STEP 1: Does the patient require the assistance of a person or device, or need extra time with toileting? Yes . TOILETING - STEP 2: Does the patient require the assistance of a helper? Yes. TOILETING - STEP 3: How much assistance does the patient require from the helper? Only supervision TOILETING - SCORE: 5-SUP BLADDER MANAGEMENT: BLADDER MANAGEMENT - STEP 1: Does the patient control the bladder completely and intentionally without equipment or devices or med ications, and is always continent? No. BLADDER MANAGEMENT - STEP 2: Does the patient require the assistance of a helper? No, patient requires and independently uses an a ssistive device, such as a urinal, bedpan, bedside commode, catheter, absorbent pad, or collecting de vice BLADDER MANAGEMENT - SCORE: 6-DEMETRI BOWEL MANAGEMENT: Activity did not occur on this shift BOWEL MANAGEMENT - SCORE: 7-IND TRANSFERS: BED, CHAIR, WHEELCHAIR: TRANSFERS: BED, CHAIR, WHEELCHAIR - STEP 1: Does the patient require assistance of a person or device, or need extra time with bed, chair, or whe elchair transfers? Yes. TRANSFERS: BED, CHAIR, WHEELCHAIR - STEP 2: Does the patient require the assistance of a helper? Yes. TRANSFERS: BED, CHAIR, WHEELCHAIR - STEP 3: How much assistance does the patient require from the helper? Steadying/guiding assistance TRANSFERS: BED, CHAIR, WHEELCHAIR - SCORE: 4-MIN TRANSFERS: TOILET: TRANSFERS: TOILET - STEP 1: Does the patient require the assistance of a person or device, or need extra time with toilet transfe rs? Yes. TRANSFERS: TOILET - STEP 2: Does the patient require the assistance of a helper? Yes. TRANSFERS: TOILET - STEP 3: How much assistance does the patient require from the helper? Patient performs half or more of the tr ansferring tasks TRANSFERS: TOILET - STEP 4: Does the patient need only incidental help such as contact guard or steadying during toilet transfer? Yes. TRANSFERS: TOILET - SCORE: 4-MIN TRANSFERS: SHOWER: Activity did not occur on this shift TRANSFERS: SHOWER - SCORE: 0-UNK TRANSFERS: TUB: Activity did not occur on this shift TRANSFERS: TUB - SCORE: 0-UNK LOCOMOTION: WALK: Activity did not occur on this shift LOCOMOTION: WALK - SCORE: 0-UNK LOCOMOTION: WHEELCHAIR: Activity did not occur on this shift LOCOMOTION: WHEELCHAIR - SCORE: 0-UNK COMPREHENSION: COMPREHENSION: TYPE: Both COMPREHENSION - STEP 1: Does the patient require help from a person or device, or need extra time to understand complex and a bstract ideas (such as current events, finances, discharge planning, medical issues, relationships, e tc)? No. COMPREHENSION - STEP 2: Does the patient need extra time, require an assistive device (such as glasses for visual comprehensi on or a hearing aid for auditory comprehension) or does s/he have mild difficulty understanding compl ex and abstract information? Yes. COMPREHENSION - SCORE: 6-DEMETRI EXPRESSION EXPRESSION: TYPE: Both EXPRESSION - STEP 1: Does the patient require help from a person or device, or need extra time expressing complex and abst ract ideas (such as current events, finances, discharge planning, medical issues, relationships, etc) ? No. EXPRESSION - STEP 2: Does the patient need extra time, require an assistive device (such as augmentive communication syste m or a communication board), OR does s/he have mild difficulty expressing complex and abstract ideas (including mild dysarthria or mild word-find problems)? No. EXPRESSION - SCORE: 7-IND SOCIAL INTERACTION: SOCIAL INTERACTION - STEP 1: Does the patient require a helper to interact with others in social and therapeutic situations? No. SOCIAL INTERACTION - STEP 2: Does the patient need extra time in social situations, OR does s/he interact with staff, other patien ts, and family members ONLY in structured environments, OR does s/he require medication for social in teraction? No. SOCIAL INTERACTION - SCORE: 7-IND PROBLEM SOLVING: PROBLEM SOLVING - STEP 1: Does the patient need help from a person or device, or need extra time to solve complex problems such as managing a checking account or confronting interpersonal problems? No. PROBLEM SOLVING - STEP 2: Does the patient require extra time to make decisions or solve problems, OR does s/he have slight dif ficulty reading, initiating, or self-correcting in unfamiliar situations? No. PROBLEM SOLVING - SCORE: 7-IND MEMORY: MEMORY - STEP 1: Does the patient need help from a person or device, or need extra time to remember frequently encount ered people, daily routines, and executing requests? No. MEMORY - STEP 2: Does the patient have slight difficulty recognizing frequently encountered people, daily routines, or executing requests without the need for repetition or using self-initiated or environmental cues to remember? No. MEMORY - SCORE: 7-IND SIGNATURE PANEL: The following modified sections: Eating - Score, Grooming - Score, Bathing - Score, Dressing - Upper Body - Score, Dressing - Lower Body - Score, Toileting - Score, Bladder Management - Score, Bowel Man agement - Score, Transfers: Bed, Chair, Wheelchair - Score, Transfers: Toilet - Score, Transfers: Maggi wer - Score, Transfers: Tub - Score, Locomotion: Walk - Score, Locomotion: Wheelchair - Score, Compre hension - Score, Expression - Score, Social Interaction - Score, Problem Solving - Score, Memory - Sc ore were [electronically] signed by Romeo Mcrae on Sat Jan 30 2019 09:06:19 GMT-0500 (Central Daylight Time)
--- NOTE | 2019-01-30 11:27 | P.PN ---
Subjective Date of Service: 01/30/19 Chief Complaint: FEELS GOOD. Subjective: Improving ABLE TO AMBULATE NOW WITH WALKER. FEELS GOOD. Review of Systems 10-point ROS is otherwise unremarkable Physical Examination - Vital Signs Temperature: 97.6 F Blood Pressure: 112/53 Pulse: 63 Respirations: 63 Pulse Ox (%): 97 - Physical Exam General: Alert, In no apparent distress HEENT: Atraumatic, PERRLA, EOMI Neck: Supple, JVD not distended Respiratory: Clear to auscultation bilaterally, Normal air movement Cardiovascular: Regular rate/rhythm, Normal S1 S2 Gastrointestinal: Normal bowel sounds, No tenderness Musculoskeletal: No tenderness Integumentary: No rashes Neurological: Normal speech, Normal tone, Normal affect Lymphatics: No axilla or inguinal lymphadenopathy - Studies Medications List Reviewed: Yes Assessment And Plan - Current Problems (Diagnosis) (1) DJD (degenerative joint disease) Current Visit: Yes Status: Chronic Plan: 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 SHE WILL AVOID NSAIDS. TRY COSAMINE ASU. R KNEE MAY NEED TKR LATER. 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 ON AC XARELTO. Qualifiers: Encounter type: subsequent encounter (4) Dyspnea Current Visit: Yes Status: Acute Plan: CHECK BNP , D DIMER CXR ALB, ATROVENT NEBS. STABLE FOR NOW. ORDER CT ANGIO AND VENOUS DOPPLER. SHE IS POST OP. SHE MAY NOT HAVE PE BUT AT RISK FOR NOW. (5) ESBL (extended spectrum beta-lactamase) producing bacteria infection Current Visit: Yes Status: Acute Plan: IT IS MOST LIKELY CONTAMINANT. FIRST UA WAS POSITIVE BUT WAS SO CALLED CLEAN CATCH. SECOND UA I ASKED FOR SPECICATH AND WAS TOTALLY NORMAL. 3RD UA WAS POSITIVE IN REHAB BUT WAS CLEAN CATCH THAT IS NOT USUALLY CLEAN IN WOMEN. I ASKED FOR SPECICATH AND THAT IS UA POSITIVE BUT SHE REALLY HAS NO SYMPTOMS EXCEPT WBC IS MILD HIGHER. THIS IS THE ONLY REASON I WILL TREAT UNTIL CULTURE COMES BACK. POSITIVE UA WITHOUT SYMPTOMS DOES NOT NEED TREATMENT. SHE IS BETTER ON CIPRO. TO CONTINUE FOR A WEEK. ESBL WAS A COLONIZED BACTERIA IT WAS COLLECTED WHAT I CALL UN-CLEAN. SPECICATH SHOWED REGULAR E COLI AND NOT ESBL.
[2019-01-30] MEDS ORDERED: RANITIDINE 150 MG TABLET PO SCH (14:30)
[2019-01-30] MEDS: BACLOFEN 10 MG TAB PO SCH (20:18)
[2019-01-31] MEDS: LEVOTHYROXINE SOD 0.075 MG TAB PO SCH (07:39)
[2019-01-31] MEDS: RANITIDINE 150 MG TABLET PO SCH ×2 (07:39→16:09)
[2019-01-31] MEDS: CRANBERRY FRUIT EXTRACT 200 MG CAP PO SCH ×2 (08:41→19:28)
[2019-01-31] MEDS: TRAMADOL HCL 50 MG TAB PO PRN ×3 (08:42→19:28)
[2019-01-31] MEDS: PROMOD 30 ML DOSE PO SCH ×2 (08:47→19:25)
[2019-01-31] MEDS: THIAMINE HCL 100 MG TABLET PO SCH (08:48)
[2019-01-31] MEDS: POTASSIUM CL SA 10 MEQ TAB PO SCH (08:48)
[2019-01-31] MEDS: GLUCOSAM/CHONDROI 500mg-400mg PO SCH ×2 (08:49→19:29)
[2019-01-31] MEDS: TORSEMIDE 20 MG TAB PO SCH (08:49)
[2019-01-31] MEDS: LIDOCAINE 5% PATCH TOP SCH (08:50)
[2019-01-31] MEDS: RIVAROXABAN 10 MG TABLET PO SCH (08:50)
[2019-01-31] MEDS: GABAPENTIN 300 MG CAP PO SCH ×2 (08:50→19:28)
[2019-01-31] MEDS: JUVEN PACKET PO SCH ×2 (08:52→19:25)
[2019-01-31] MEDS: MAGNESIUM OXIDE 400 MG TAB PO SCH ×2 (08:52→19:28)
--- NOTE | 2019-01-31 12:41 | P.PN ---
Subjective Date of Service: 01/31/19 Chief Complaint: FEELS GOOD. Subjective: Improving ABLE TO AMBULATE NOW WITH WALKER. FEELS GOOD. NO NEW ISSUES, SOME SWELLING OF R LEG. Review of Systems 10-point ROS is otherwise unremarkable Physical Examination - Vital Signs Temperature: 97 F Blood Pressure: 119/58 Pulse: 70 Respirations: 16 Pulse Ox (%): 97 - Physical Exam General: Alert, In no apparent distress, Mild distress (POST OP R HIP.) HEENT: Atraumatic, PERRLA, EOMI Neck: Supple, JVD not distended Respiratory: Clear to auscultation bilaterally, Normal air movement Cardiovascular: Regular rate/rhythm, Normal S1 S2 Gastrointestinal: Normal bowel sounds, No tenderness Musculoskeletal: No tenderness Integumentary: No rashes Neurological: Normal speech, Normal tone, Normal affect Lymphatics: No axilla or inguinal lymphadenopathy - Studies Medications List Reviewed: Yes Assessment And Plan - Current Problems (Diagnosis) (1) DJD (degenerative joint disease) Current Visit: Yes Status: Chronic Plan: 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 SHE WILL AVOID NSAIDS. TRY COSAMINE ASU. R KNEE MAY NEED TKR LATER. 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 ON AC XARELTO. Qualifiers: Encounter type: subsequent encounter (4) Dyspnea Current Visit: Yes Status: Acute Plan: CHECK BNP , D DIMER CXR ALB, ATROVENT NEBS. STABLE FOR NOW. ORDER CT ANGIO AND VENOUS DOPPLER. SHE IS POST OP. SHE MAY NOT HAVE PE BUT AT RISK FOR NOW. (5) ESBL (extended spectrum beta-lactamase) producing bacteria infection Current Visit: Yes Status: Acute Plan: IT IS MOST LIKELY CONTAMINANT. FIRST UA WAS POSITIVE BUT WAS SO CALLED CLEAN CATCH. SECOND UA I ASKED FOR SPECICATH AND WAS TOTALLY NORMAL. 3RD UA WAS POSITIVE IN REHAB BUT WAS CLEAN CATCH THAT IS NOT USUALLY CLEAN IN WOMEN. I ASKED FOR SPECICATH AND THAT IS UA POSITIVE BUT SHE REALLY HAS NO SYMPTOMS EXCEPT WBC IS MILD HIGHER. THIS IS THE ONLY REASON I WILL TREAT UNTIL CULTURE COMES BACK. POSITIVE UA WITHOUT SYMPTOMS DOES NOT NEED TREATMENT. SHE IS BETTER ON CIPRO. TO CONTINUE FOR A WEEK. ESBL WAS A COLONIZED BACTERIA IT WAS COLLECTED WHAT I CALL UN-CLEAN. SPECICATH SHOWED REGULAR E COLI AND NOT ESBL.
[2019-01-31] MEDS: BACLOFEN 10 MG TAB PO SCH (19:29)
[2019-02-01] MEDS: LEVOTHYROXINE SOD 0.075 MG TAB PO SCH (07:19)
[2019-02-01] MEDS: RANITIDINE 150 MG TABLET PO SCH ×2 (07:19→16:25)
[2019-02-01] MEDS: LIDOCAINE 5% PATCH TOP SCH (08:47)
[2019-02-01] MEDS: POTASSIUM CL SA 10 MEQ TAB PO SCH (08:47)
[2019-02-01] MEDS: THIAMINE HCL 100 MG TABLET PO SCH (08:48)
[2019-02-01] MEDS: MAGNESIUM OXIDE 400 MG TAB PO SCH ×2 (08:48→19:52)
[2019-02-01] MEDS: RIVAROXABAN 10 MG TABLET PO SCH (08:48)
[2019-02-01] MEDS: GABAPENTIN 300 MG CAP PO SCH ×2 (08:48→19:52)
[2019-02-01] MEDS: CRANBERRY FRUIT EXTRACT 200 MG CAP PO SCH ×2 (08:48→19:52)
[2019-02-01] MEDS: GLUCOSAM/CHONDROI 500mg-400mg PO SCH ×2 (08:49→19:52)
[2019-02-01] MEDS: TRAMADOL HCL 50 MG TAB PO PRN ×3 (08:49→19:55)
[2019-02-01] MEDS: TORSEMIDE 20 MG TAB PO SCH (08:50)
[2019-02-01] MEDS: PROMOD 30 ML DOSE PO SCH ×2 (09:00→19:53)
[2019-02-01] MEDS: JUVEN PACKET PO SCH ×2 (12:00→19:53)
--- NOTE | 2019-02-01 14:41 | FAST ---
ENCOUNTER DATE AND TIME: 02/01/2019 08:00 (CDT) NAME CELSO MADISON DATE OF : 1935 DATE OF ADMISSION: 01/15/2019 16:46 (CDT) PHONE: AGE: 83 SSN# [id number] GENDER: Female ENCOUNTER PHYSICIAN: Dr. Raúl Llanes M.D. ADMISSION DIAGNOSIS: - Orthopaedic Disorders 08 - Unilateral Hip Fracture (08.11) RIGHT MINIMALLY DISPLACED FEMORAL NECK FRACTURE JUST BELOW THE HEAD. EATING: Activity did not occur on this shift EATING - SCORE: 0-UNK GROOMING: Activity did not occur on this shift GROOMING - SCORE: 0-UNK BATHING: Activity did not occur on this shift BATHING - SCORE: 0-UNK DRESSING - UPPER BODY: Activity did not occur on this shift Patient is not dressing in public clothing ARTICLES SCORE Total number of steps: 0 DRESSING - UPPER BODY - SCORE: 0-UNK DRESSING - LOWER BODY: Activity did not occur on this shift Patient is not dressing in public clothing ARTICLES SCORE Total number of steps: 0 DRESSING - LOWER BODY - SCORE: 0-UNK TOILETING: Activity did not occur on this shift TOILETING - SCORE: 0-UNK BLADDER MANAGEMENT: Activity did not occur on this shift BLADDER MANAGEMENT - SCORE: 7-IND BOWEL MANAGEMENT: Activity did not occur on this shift BOWEL MANAGEMENT - SCORE: 7-IND TRANSFERS: BED, CHAIR, WHEELCHAIR: TRANSFERS: BED, CHAIR, WHEELCHAIR - STEP 1: Does the patient require assistance of a person or device, or need extra time with bed, chair, or whe elchair transfers? Yes. TRANSFERS: BED, CHAIR, WHEELCHAIR - STEP 2: Does the patient require the assistance of a helper? Yes. TRANSFERS: BED, CHAIR, WHEELCHAIR - STEP 3: How much assistance does the patient require from the helper? Only supervision TRANSFERS: BED, CHAIR, WHEELCHAIR - SCORE: 5-SUP TRANSFERS: TOILET: Activity did not occur on this shift TRANSFERS: TOILET - SCORE: 0-UNK TRANSFERS: SHOWER: Activity did not occur on this shift TRANSFERS: SHOWER - SCORE: 0-UNK TRANSFERS: TUB: Activity did not occur on this shift TRANSFERS: TUB - SCORE: 0-UNK LOCOMOTION: WALK: LOCOMOTION: WALK - STEP 1: Does the patient need help from a person or device, or need extra time to walk 150 feet? Yes. LOCOMOTION: WALK - STEP 2: How much assistance does the patient require to walk a minimum of 150 feet? Patient walks less than 1 50 feet - but more than 50 feet - with the assistance of only one helper LOCOMOTION: WALK - SCORE: 2-MAX LOCOMOTION: WHEELCHAIR: LOCOMOTION: WHEELCHAIR - STEP 1: Does the patient need help to go 150 feet in a wheelchair? No. LOCOMOTION: WHEELCHAIR - SCORE: 6-DEMETRI LOCOMOTION: STAIRS: Activity did not occur on this shift LOCOMOTION: STAIRS - SCORE: 0-UNK COMPREHENSION: COMPREHENSION - SCORE: 0-UNK EXPRESSION EXPRESSION - SCORE: 0-UNK SOCIAL INTERACTION: SOCIAL INTERACTION - SCORE: 0-UNK PROBLEM SOLVING: PROBLEM SOLVING - SCORE: 0-UNK MEMORY: MEMORY - SCORE: 0-UNK SIGNATURE PANEL: The following modified sections: Transfers: Bed, Chair, Wheelchair - Score, Transfers: Toilet - Score , Locomotion: Walk - Score, Locomotion: Wheelchair - Score, Locomotion: Stairs - Score were [electron chitra] signed by Chris Leonard PT on FriFeb 01 2019 14:40:41 T-0500 (Central Daylight Time)
--- NOTE | 2019-02-01 18:13 | P.PN ---
Subjective Date of Service: 02/01/19 Chief Complaint: FEELS GOOD. Subjective: Improving ABLE TO AMBULATE NOW WITH WALKER. FEELS GOOD. NO NEW ISSUES, SOME SWELLING OF R LEG. Review of Systems 10-point ROS is otherwise unremarkable Physical Examination - Vital Signs Temperature: 96.8 F Blood Pressure: 112/59 Pulse: 64 Respirations: 18 Pulse Ox (%): 100 - Physical Exam General: Alert HEENT: Atraumatic, PERRLA, EOMI Neck: Supple, JVD not distended Respiratory: Clear to auscultation bilaterally, Normal air movement Cardiovascular: Regular rate/rhythm, Normal S1 S2 Gastrointestinal: Normal bowel sounds, No tenderness Musculoskeletal: No tenderness Integumentary: No rashes Neurological: Normal speech, Normal tone, Normal affect Lymphatics: No axilla or inguinal lymphadenopathy - Studies Medications List Reviewed: Yes Assessment And Plan - Current Problems (Diagnosis) (1) DJD (degenerative joint disease) Current Visit: Yes Status: Chronic Plan: 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 SHE WILL AVOID NSAIDS. TRY COSAMINE ASU. R KNEE MAY NEED TKR LATER. STABLE FOR NOW. 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 WILL REDUCE THE DOSE OF TORESEMIDE IF CONTINUES. (3) Closed right hip fracture Current Visit: No Status: Acute Plan: STABLE DOING WELL. ON AC XARELTO. Qualifiers: Encounter type: subsequent encounter (4) Dyspnea Current Visit: Yes Status: Acute Plan: CHECK BNP , D DIMER CXR ALB, ATROVENT NEBS. STABLE FOR NOW. ORDER CT ANGIO AND VENOUS DOPPLER. SHE IS POST OP. SHE MAY NOT HAVE PE BUT AT RISK FOR NOW. (5) ESBL (extended spectrum beta-lactamase) producing bacteria infection Current Visit: Yes Status: Acute Plan: IT IS MOST LIKELY CONTAMINANT. FIRST UA WAS POSITIVE BUT WAS SO CALLED CLEAN CATCH. SECOND UA I ASKED FOR SPECICATH AND WAS TOTALLY NORMAL. 3RD UA WAS POSITIVE IN REHAB BUT WAS CLEAN CATCH THAT IS NOT USUALLY CLEAN IN WOMEN. I ASKED FOR SPECICATH AND THAT IS UA POSITIVE BUT SHE REALLY HAS NO SYMPTOMS EXCEPT WBC IS MILD HIGHER. THIS IS THE ONLY REASON I WILL TREAT UNTIL CULTURE COMES BACK. POSITIVE UA WITHOUT SYMPTOMS DOES NOT NEED TREATMENT. SHE IS BETTER ON CIPRO. TO CONTINUE FOR A WEEK. ESBL WAS A COLONIZED BACTERIA IT WAS COLLECTED WHAT I CALL UN-CLEAN. SPECICATH SHOWED REGULAR E COLI AND NOT ESBL.
--- NOTE | 2019-02-01 18:16 | R.PN ---
ENCOUNTER DATE AND TIME: 02/01/2019 18:14 (CDT) NAME CELSO MADISON DATE OF : 1935 DATE OF ADMISSION: 01/15/2019 16:46 (CDT) RIGHT MINIMALLY DISPLACED FEMORAL NECK FRACTURE JUST BELOW THE HEADCHIEF COMPLAINT: Right hip fracture. SUBJECTIVE: Pt denied any Shortness of Breath. Pt denied any depression. Ambulated 130' with a rolling walker, standby assistance and touch down weight bearing. Self-propelle d wheelchair 250' with modified independence. She reports muscle spasms at night after exercise. Will start magnesium 400 mg twice daily and baclof en 5 mg at night. WBC 7.5, Hgb 12.3, prealbumin 22.4. Repeat UA is negative. 12 VITAL SIGNS Temperature: 97.4 F SBP/DBP: 112/59 Pulse: 64 Resp: 15 MEDICATION ALLERGIES: PENICILLIN ENVIRONMENTAL ALLERGIES: None Known - Substance Allergies None Known - Other Allergies None Known NURSING: - Shower allowing shower - Skin care per protocol PRECAUTIONS: - Posterior Hip Precaution No adduction across midline No external rotation No hip flexion >90 degrees No internal rotation No wheel chair propulsion - Weight Bearing Precaution TTWB right LE ACTIVITIES OOB only with supervision THERAPIES: - Dietary and Nutrition Adequate Nutrition. Nutritional Education. Nutritional Supplements. PHYSICAL EXAM - Gen Alert and awake Lying in bed No apparent distress Oriented to: person, time, and place - Skin No skin breakdown. Normacephalic - Eyes No abnormalities - ENMT No abnormalities - Neck No abnormalities - CVS RRR - Resp Clear to auscultation - Abd Soft - GI Non distended Deferred - No abnormalities - Ext Mild left lower extremity edema. - MSK 4+/5 weakness in right lower extremity - Neuro 4/5 strength right lower extremity. - Psych No abnormalities ASSESSMENT: Pt. is a 83 yo Right-handed white female.On 01/13/2019 she was admitted to [facility] with diagnosis RIGHT MINIMALLY DISPLACED FEMORAL NECK FRACTURE JUST BELOW THE HEAD.Her [facility] ent category is Orthopaedic Disorders 08 - Unilateral Hip Fracture (.11).Pre-morbidly, Pt. was ind ependent/mod-I in Self-Care, Sphincter Control, Transfers Control, Locomotion, Communication, and Soc ial Cognition; and she had good Sphincter Control.Currently, she has deficits of Self-Care, Transfers Control, Locomotion, Endurance, Balance, and Safety Awareness.Pt. is now referred to [facility] for acute in-patient rehabilitation in order to maximize patient's functional inde pendence in activities of daily living, strength, ROM, and mobility.- Rehab Goal Patient has realistic goal of being discharged at assistance level 6-Amado to reside at Home with Fam tevin/Relatives. MDM/PLAN: - Physical Therapy Decreased range of motion - to improve, our physical therapists will perform initial evaluation of p t's status upon admission and devise an individualized program for increasing patient's Range of Adria on. Gait dysfunction - to improve, our physical therapists will perform initial evaluation of pt's statu s upon admission and devise an individualized program for Gait Training, and Wheel Chair mobility Inability to transfer - to improve, our physical therapists will perform initial evaluation of pt's status upon admission and devise an individualized program for Bed mobility Need for home safety evaluation - to improve, our physical therapists will perform initial evaluatio n of pt's status upon admission and devise an individualized program for Home Evaluation Need in caregiver upon discharge - to improve, our physical therapists will perform initial evaluati on of pt's status upon admission and devise an individualized program for Caregiver Training Edema - to improve, our physical therapists will perform initial evaluation of pt's status upon admi ssion and devise an individualized program for Elevation Training, and Lymphedema Therapy New precaution - to improve, our physical therapists will perform initial evaluation of pt's status upon admission and devise an individualized program for Patient precaution education Poor balance - to improve, our physical therapists will perform initial evaluation of pt's status up on admission and devise an individualized program for Balance Training Poor endurance - to improve, our physical therapists will perform initial evaluation of pt's status upon admission and devise an individualized program for Endurance Training Weakness - to improve, our physical therapists will perform initial evaluation of pt's status upon a dmission and devise an individualized program for Aquatic Therapy, Neuromuscular Reeducation, and Str engthening Achieving independence - to improve, our physical therapists will perform initial evaluation of pt's status upon admission and devise an individualized program for Community Reintegration Activities - Occupational Therapy ADL deficits - to improve, our occupation therapists will perform initial evaluation of pt's status upon admission and devise an individualized program for Bathing, Bed mobility, Community Reintegratio n, Cooking, Dressing, Eating, Fine Motor Skills, Grooming, Homemaking, Kitchen Mobility, Laundry, Pat ient Education, Safety Awareness, Splinting - Positioning, Transfers(Toilet, Tub, Shower), and Wheel Chair Management Need for foster care worker - to improve, our occupation therapists will perform initial evaluation of pt's status upon admission and devise an individualized program for Caregiver Training Weakness - to improve, our occupation therapists will perform initial evaluation of pt's status upon admission and devise an individualized program for Aquatic Therapy, Balance, Endurance, UE ROM, and UE strengthening - Other See attached MAR (Medication Administration Record) - Anterior Hip Precaution No abduction No active extension No adduction across midline No external rotation No hip flexion >90 degrees No internal rotation - Diet - Liquid Texture Continue Regular - Tube Feed Continue N/A - Diet Type Continue Regular - Posterior Hip Precaution No adduction across midline No external rotation No hip flexion >90 degrees No internal rotation No wheel chair propulsion - Weight Bearing Precaution TTWB right LE - Skin care per protocol - Diet - Solid Texture Continue Regular - Shower allowing shower FUNCTIONAL STATUS: UPDATED AT WEEKLY TEAM CONFERENCE - Bladder Same accident frequency: 7-Ind - No accidents in the past 7 days - Bowel Same accident frequency: 7-Ind - No accidents in the past 7 days - Walking Same score based on distance walked: 1(<=50ft) - Wheelchair Same score based on distance traveled: 0(N/A) FUNCTIONAL STATUS: - Self-Care A. Eating sup B. Grooming sup C. Bathing modA D. Dressing - Upper [place] E. Dressing - Lower maxA F. Toileting maxA - Sphincter Control G: Bladder control Ind H: Bowel control Ind - Transfers Control I. Bed/Chair/Wheelchair modA J. Toilet modA K. Tub/Shower ADNO - Locomotion L. Walk/Wheelchair (C) maxA L. Walk/Wheelchair (W) maxA M. Stairs ADNO - Communication N. Comprehension (B) Ind O. Expression (B) Ind - Social Cognition P. Social Interaction Ind Q. Problem Solving Ind R. Memory Ind - Endurance Fair - Balance Fair - Safety Awareness Fair CURRENT FUNC. DEFICITS: Self-Care, Transfers Control, Locomotion, Endurance, Balance, and Safety Awareness SIGNATURE PANEL: (CDT)
[2019-02-01] MEDS: BACLOFEN 10 MG TAB PO SCH (20:58)
--- NOTE | 2019-02-02 02:30 | FAST ---
SHIFT START DATE/TIME: 02/01/2019 19:00 (CDT) SHIFT END DATE/TIME: 02/02/2019 07:00 (CDT) NAME CELSO MADISON DATE OF : 1935 DATE OF ADMISSION: 01/15/2019 16:46 (CDT) PHONE: AGE: 83 SSN# [id number] GENDER: Female ENCOUNTER PHYSICIAN: Dr. Raúl Llanes M.D. ADMISSION DIAGNOSIS: - Orthopaedic Disorders 08 - Unilateral Hip Fracture (08.11) RIGHT MINIMALLY DISPLACED FEMORAL NECK FRACTURE JUST BELOW THE HEAD. EATING: Activity did not occur on this shift EATING - SCORE: 0-UNK GROOMING: Oral care Wash, rinse, and dry hands GROOMING - STEP 1: Does the patient require the assistance of a person or device, or need extra time when grooming? Yes. GROOMING - STEP 2: Does the patient require the assistance of a helper? No. The patient only requires an assistive devic e, OR takes more than reasonable time to groom, OR there is a concern for safety as the patient groom s GROOMING - SCORE: 6-DEMETRI BATHING: Activity did not occur on this shift BATHING - SCORE: 0-UNK DRESSING - UPPER BODY: Patient is not dressing in public clothing ARTICLES SCORE Total number of steps: 0 DRESSING - UPPER BODY - SCORE: 0-UNK DRESSING - LOWER BODY: Patient is not dressing in public clothing ARTICLES SCORE Total number of steps: 0 DRESSING - LOWER BODY - SCORE: 0-UNK TOILETING: TOILETING - STEP 1: Does the patient require the assistance of a person or device, or need extra time with toileting? Yes . TOILETING - STEP 2: Does the patient require the assistance of a helper? Yes. TOILETING - STEP 3: How much assistance does the patient require from the helper? Only supervision TOILETING - SCORE: 5-SUP BLADDER MANAGEMENT: BLADDER MANAGEMENT - STEP 1: Does the patient control the bladder completely and intentionally without equipment or devices or med ications, and is always continent? No. BLADDER MANAGEMENT - STEP 2: Does the patient require the assistance of a helper? No, patient requires and independently uses an a ssistive device, such as a urinal, bedpan, bedside commode, catheter, absorbent pad, or collecting de vice BLADDER MANAGEMENT - SCORE: 6-DEMETRI BOWEL MANAGEMENT: BOWEL MANAGEMENT - STEP 1: Does the patient control bowels completely and intentionally without equipment devices or medications AND is always continent? No. BOWEL MANAGEMENT - STEP 2: Does the patient require the assistance of a helper? No, patient requires medication for control such as stool softeners, suppositories, laxatives, enemas, or OTC medications BOWEL MANAGEMENT - SCORE: 6-DEMETRI TRANSFERS: BED, CHAIR, WHEELCHAIR: TRANSFERS: BED, CHAIR, WHEELCHAIR - STEP 1: Does the patient require assistance of a person or device, or need extra time with bed, chair, or whe elchair transfers? Yes. TRANSFERS: BED, CHAIR, WHEELCHAIR - STEP 2: Does the patient require the assistance of a helper? Yes. TRANSFERS: BED, CHAIR, WHEELCHAIR - STEP 3: How much assistance does the patient require from the helper? Steadying/guiding assistance TRANSFERS: BED, CHAIR, WHEELCHAIR - SCORE: 4-MIN TRANSFERS: TOILET: TRANSFERS: TOILET - STEP 1: Does the patient require the assistance of a person or device, or need extra time with toilet transfe rs? Yes. TRANSFERS: TOILET - STEP 2: Does the patient require the assistance of a helper? No. Patient only requires an assistive device banerjee ch as a grab bar or special seat, OR s/he takes more than reasonable time to perform toilet transfers , OR there is a safety concern when s/he performs toilet transfers. TRANSFERS: TOILET - SCORE: 6-DEMETRI TRANSFERS: SHOWER: Activity did not occur on this shift TRANSFERS: SHOWER - SCORE: 0-UNK TRANSFERS: TUB: Activity did not occur on this shift TRANSFERS: TUB - SCORE: 0-UNK LOCOMOTION: WALK: Activity did not occur on this shift LOCOMOTION: WALK - SCORE: 0-UNK LOCOMOTION: WHEELCHAIR: Activity did not occur on this shift LOCOMOTION: WHEELCHAIR - SCORE: 0-UNK COMPREHENSION: COMPREHENSION: TYPE: Both COMPREHENSION - STEP 1: Does the patient require help from a person or device, or need extra time to understand complex and a bstract ideas (such as current events, finances, discharge planning, medical issues, relationships, e tc)? No. COMPREHENSION - STEP 2: Does the patient need extra time, require an assistive device (such as glasses for visual comprehensi on or a hearing aid for auditory comprehension) or does s/he have mild difficulty understanding compl ex and abstract information? Yes. COMPREHENSION - SCORE: 6-DEMETRI EXPRESSION EXPRESSION: TYPE: Both EXPRESSION - STEP 1: Does the patient require help from a person or device, or need extra time expressing complex and abst ract ideas (such as current events, finances, discharge planning, medical issues, relationships, etc) ? No. EXPRESSION - STEP 2: Does the patient need extra time, require an assistive device (such as augmentive communication syste m or a communication board), OR does s/he have mild difficulty expressing complex and abstract ideas (including mild dysarthria or mild word-find problems)? No. EXPRESSION - SCORE: 7-IND SOCIAL INTERACTION: SOCIAL INTERACTION - STEP 1: Does the patient require a helper to interact with others in social and therapeutic situations? No. SOCIAL INTERACTION - STEP 2: Does the patient need extra time in social situations, OR does s/he interact with staff, other patien ts, and family members ONLY in structured environments, OR does s/he require medication for social in teraction? Yes, patient needs extra time SOCIAL INTERACTION - SCORE: 6-DEMETRI PROBLEM SOLVING: PROBLEM SOLVING - STEP 1: Does the patient need help from a person or device, or need extra time to solve complex problems such as managing a checking account or confronting interpersonal problems? No. PROBLEM SOLVING - STEP 2: Does the patient require extra time to make decisions or solve problems, OR does s/he have slight dif ficulty reading, initiating, or self-correcting in unfamiliar situations? Yes, patient needs extra ti me. PROBLEM SOLVING - SCORE: 6-DEMETRI MEMORY: MEMORY - STEP 1: Does the patient need help from a person or device, or need extra time to remember frequently encount ered people, daily routines, and executing requests? No. MEMORY - STEP 2: Does the patient have slight difficulty recognizing frequently encountered people, daily routines, or executing requests without the need for repetition or using self-initiated or environmental cues to remember? Yes. MEMORY - SCORE: 6-DEMETRI SIGNATURE PANEL: The following modified sections: Eating - Score, Grooming - Score, Dressing - Upper Body - Score, Malik ssing - Lower Body - Score, Toileting - Score, Bladder Management - Score, Bowel Management - Score, Transfers: Bed, Chair, Wheelchair - Score, Transfers: Toilet - Score, Transfers: Shower - Score, Yeung sfers: Tub - Score, Locomotion: Walk - Score, Locomotion: Wheelchair - Score, Comprehension - Score, Expression - Score, Social Interaction - Score, Problem Solving - Score, Memory - Score were [electro nically] signed by Janee Adan CNA on FriFeb 02 2019 02:30:01 GMT-0500 (Central Daylight Time)
[2019-02-02] MEDS: RANITIDINE 150 MG TABLET PO SCH ×2 (07:00→17:35)
[2019-02-02] MEDS: LEVOTHYROXINE SOD 0.075 MG TAB PO SCH (07:00)
[2019-02-02] MEDS: POTASSIUM CL SA 10 MEQ TAB PO SCH (08:27)
[2019-02-02] MEDS: CRANBERRY FRUIT EXTRACT 200 MG CAP PO SCH ×2 (08:27→19:49)
[2019-02-02] MEDS: LIDOCAINE 5% PATCH TOP SCH (08:27)
[2019-02-02] MEDS: THIAMINE HCL 100 MG TABLET PO SCH (08:28)
[2019-02-02] MEDS: MAGNESIUM OXIDE 400 MG TAB PO SCH ×2 (08:28→19:49)
[2019-02-02] MEDS: TORSEMIDE 20 MG TAB PO SCH (08:28)
[2019-02-02] MEDS: GLUCOSAM/CHONDROI 500mg-400mg PO SCH ×2 (08:28→19:49)
[2019-02-02] MEDS: GABAPENTIN 300 MG CAP PO SCH ×2 (08:28→19:49)
[2019-02-02] MEDS: TRAMADOL HCL 50 MG TAB PO PRN ×2 (08:28→12:16)
[2019-02-02] MEDS: PROMOD 30 ML DOSE PO SCH ×2 (08:29→19:50)
[2019-02-02] MEDS: JUVEN PACKET PO SCH ×2 (08:29→19:50)
[2019-02-02] MEDS: RIVAROXABAN 10 MG TABLET PO SCH (08:29)
--- NOTE | 2019-02-02 10:48 | FAST ---
ENCOUNTER DATE AND TIME: 02/02/2019 08:00 (CDT) NAME CELSO MADISON DATE OF : 1935 DATE OF ADMISSION: 01/15/2019 16:46 (CDT) PHONE: AGE: 83 SSN# [id number] GENDER: Female ENCOUNTER PHYSICIAN: Dr. Raúl Llanes M.D. ADMISSION DIAGNOSIS: - Orthopaedic Disorders 08 - Unilateral Hip Fracture (08.11) RIGHT MINIMALLY DISPLACED FEMORAL NECK FRACTURE JUST BELOW THE HEAD. EATING: Activity did not occur on this shift EATING - SCORE: 0-UNK GROOMING: Activity did not occur on this shift GROOMING - SCORE: 0-UNK BATHING: Activity did not occur on this shift BATHING - SCORE: 0-UNK DRESSING - UPPER BODY: Activity did not occur on this shift Patient is not dressing in public clothing ARTICLES SCORE Total number of steps: 0 DRESSING - UPPER BODY - SCORE: 0-UNK DRESSING - LOWER BODY: Activity did not occur on this shift Patient is not dressing in public clothing ARTICLES SCORE Total number of steps: 0 DRESSING - LOWER BODY - SCORE: 0-UNK TOILETING: Activity did not occur on this shift TOILETING - SCORE: 0-UNK BLADDER MANAGEMENT: Activity did not occur on this shift BLADDER MANAGEMENT - SCORE: 7-IND BOWEL MANAGEMENT: Activity did not occur on this shift BOWEL MANAGEMENT - SCORE: 7-IND TRANSFERS: BED, CHAIR, WHEELCHAIR: TRANSFERS: BED, CHAIR, WHEELCHAIR - STEP 1: Does the patient require assistance of a person or device, or need extra time with bed, chair, or whe elchair transfers? Yes. TRANSFERS: BED, CHAIR, WHEELCHAIR - STEP 2: Does the patient require the assistance of a helper? Yes. TRANSFERS: BED, CHAIR, WHEELCHAIR - STEP 3: How much assistance does the patient require from the helper? Only supervision TRANSFERS: BED, CHAIR, WHEELCHAIR - SCORE: 5-SUP TRANSFERS: TOILET: Activity did not occur on this shift TRANSFERS: TOILET - SCORE: 0-UNK TRANSFERS: SHOWER: Activity did not occur on this shift TRANSFERS: SHOWER - SCORE: 0-UNK TRANSFERS: TUB: Activity did not occur on this shift TRANSFERS: TUB - SCORE: 0-UNK LOCOMOTION: WALK: LOCOMOTION: WALK - STEP 1: Does the patient need help from a person or device, or need extra time to walk 150 feet? Yes. LOCOMOTION: WALK - STEP 2: How much assistance does the patient require to walk a minimum of 150 feet? Patient walks less than 1 50 feet - but more than 50 feet - with the assistance of only one helper LOCOMOTION: WALK - SCORE: 2-MAX LOCOMOTION: WHEELCHAIR: LOCOMOTION: WHEELCHAIR - STEP 1: Does the patient need help to go 150 feet in a wheelchair? No. LOCOMOTION: WHEELCHAIR - SCORE: 6-DEMETRI LOCOMOTION: STAIRS: Activity did not occur on this shift LOCOMOTION: STAIRS - SCORE: 0-UNK COMPREHENSION: COMPREHENSION - SCORE: 0-UNK EXPRESSION EXPRESSION - SCORE: 0-UNK SOCIAL INTERACTION: SOCIAL INTERACTION - SCORE: 0-UNK PROBLEM SOLVING: PROBLEM SOLVING - SCORE: 0-UNK MEMORY: MEMORY - SCORE: 0-UNK SIGNATURE PANEL: The following modified sections: Transfers: Bed, Chair, Wheelchair - Score, Transfers: Toilet - Score , Locomotion: Walk - Score, Locomotion: Wheelchair - Score, Locomotion: Stairs - Score were [electron chitra] signed by Chris Leonard PT on FriFeb 02 2019 10:47:18 T-0500 (Central Daylight Time)
--- NOTE | 2019-02-02 11:28 | RAD REPORT ---
EXAM DESCRIPTION: RAD - Hip Right 2 View - 02/02/2019 11:22 am CLINICAL HISTORY: Right hip pain FINDINGS: Compression screws affix proximal right femoral fracture in good alignment. No dislocation
--- NOTE | 2019-02-02 15:05 | FAST ---
ENCOUNTER DATE AND TIME: 02/01/2019 08:00 (CDT) NAME CELSO MADISON DATE OF : 1935 DATE OF ADMISSION: 01/15/2019 16:46 (CDT) PHONE: AGE: 83 SSN# [id number] GENDER: Female ENCOUNTER PHYSICIAN: Dr. Raúl Llanes M.D. ADMISSION DIAGNOSIS: - Orthopaedic Disorders 08 - Unilateral Hip Fracture (08.11) RIGHT MINIMALLY DISPLACED FEMORAL NECK FRACTURE JUST BELOW THE HEAD. EATING: EATING - STEP 1: Does the patient require the assistance of a person or device, or need extra time when eating? No. EATING - SCORE: 7-IND GROOMING: Comb/brush hair Oral care Patient applied make-up Wash, rinse, and dry face Wash, rinse, and dry hands GROOMING - STEP 1: Does the patient require the assistance of a person or device, or need extra time when grooming? No. GROOMING - SCORE: 7-IND BATHING: Abdomen Buttocks Chest Left arm Left lower leg and foot Left upper leg Perineal area Right arm Right lower leg and foot Right upper leg BATHING - STEP 1: Does the patient require the assistance of a person or device, or need extra time when bathing? Yes. BATHING - STEP 2: Does the patient require the assistance of a helper? No. The patient only requires an assistive devic e such as a bath russel, OR the patient takes more than reasonable time to bathe, OR there is a concern for safety such as regulating water temperature as the patient bathes. BATHING - SCORE: 6-DEMETRI DRESSING - UPPER BODY: T-shirt/pullover shirt (four steps) ARTICLES SCORE Total number of steps: 4 DRESSING - UPPER BODY - STEP 1: Does the patient require help from a person or device, or need extra time when dressing above the coni st? No. DRESSING - UPPER BODY - SCORE: 7-IND DRESSING - LOWER BODY: Elastic waist pants (three steps) Slip-on shoe - Left foot (one step) Slip-on shoe - Right foot (one step) Underwear (three steps) ARTICLES SCORE Total number of steps: 8 DRESSING - LOWER BODY - STEP 1: Does the patient require help from a person or device, or need extra time when dressing below the coni st? Yes. DRESSING - LOWER BODY - STEP 2: Does the patient require the assistance of a helper? No. Patient requires an assistive device such as a computer service technician. OR s/he takes more than reasonable time as s/he dresses the lower body, OR there is a con cern for safety when s/he dresses the lower body DRESSING - LOWER BODY - SCORE: 6-DEMETRI TOILETING: TOILETING - STEP 1: Does the patient require the assistance of a person or device, or need extra time with toileting? Yes . TOILETING - STEP 2: Does the patient require the assistance of a helper? No. TOILETING - SCORE: 6-DEMETRI BLADDER MANAGEMENT: Activity did not occur on this shift BLADDER MANAGEMENT - SCORE: 7-IND BOWEL MANAGEMENT: Activity did not occur on this shift BOWEL MANAGEMENT - SCORE: 7-IND TRANSFERS: BED, CHAIR, WHEELCHAIR: Activity did not occur on this shift TRANSFERS: BED, CHAIR, WHEELCHAIR - SCORE: 0-UNK TRANSFERS: TOILET: TRANSFERS: TOILET - STEP 1: Does the patient require the assistance of a person or device, or need extra time with toilet transfe rs? Yes. TRANSFERS: TOILET - STEP 2: Does the patient require the assistance of a helper? No. Patient only requires an assistive device banerjee ch as a grab bar or special seat, OR s/he takes more than reasonable time to perform toilet transfers , OR there is a safety concern when s/he performs toilet transfers. TRANSFERS: TOILET - SCORE: 6-DEMETRI TRANSFERS: SHOWER: TRANSFERS: SHOWER - STEP 1: Does the patient require the assistance of a person or device, or need extra time with shower transfe rs? Yes. TRANSFERS: SHOWER - STEP 2: Does the patient require the assistance of a helper? No. The patient only uses an assistive device, t akes more than reasonable time, OR there is a concern for safety when s/he performs transfers. TRANSFERS: SHOWER - SCORE: 6-DEMETRI TRANSFERS: TUB: TRANSFERS: TUB - STEP 1: Does the patient require the assistance of a person or device, or need extra time with tub transfers? Yes. TRANSFERS: TUB - STEP 2: Does the patient require the assistance of a helper? No. Only requires the assistance of an assistive device, OR takes more than reasonable time, OR there is a concern for safety when s/he performs tub transfers TRANSFERS: TUB - SCORE: 6-DEMETRI LOCOMOTION: WALK: Activity did not occur on this shift LOCOMOTION: WALK - SCORE: 0-UNK LOCOMOTION: WHEELCHAIR: Activity did not occur on this shift LOCOMOTION: WHEELCHAIR - SCORE: 0-UNK LOCOMOTION: STAIRS: Activity did not occur on this shift LOCOMOTION: STAIRS - SCORE: 0-UNK COMPREHENSION: COMPREHENSION: TYPE: Both COMPREHENSION - STEP 1: Does the patient require help from a person or device, or need extra time to understand complex and a bstract ideas (such as current events, finances, discharge planning, medical issues, relationships, e tc)? No. COMPREHENSION - STEP 2: Does the patient need extra time, require an assistive device (such as glasses for visual comprehensi on or a hearing aid for auditory comprehension) or does s/he have mild difficulty understanding compl ex and abstract information? No. COMPREHENSION - SCORE: 7-IND EXPRESSION EXPRESSION: TYPE: Both EXPRESSION - STEP 1: Does the patient require help from a person or device, or need extra time expressing complex and abst ract ideas (such as current events, finances, discharge planning, medical issues, relationships, etc) ? No. EXPRESSION - STEP 2: Does the patient need extra time, require an assistive device (such as augmentive communication syste m or a communication board), OR does s/he have mild difficulty expressing complex and abstract ideas (including mild dysarthria or mild word-find problems)? No. EXPRESSION - SCORE: 7-IND SOCIAL INTERACTION: SOCIAL INTERACTION - STEP 1: Does the patient require a helper to interact with others in social and therapeutic situations? No. SOCIAL INTERACTION - STEP 2: Does the patient need extra time in social situations, OR does s/he interact with staff, other patien ts, and family members ONLY in structured environments, OR does s/he require medication for social in teraction? No. SOCIAL INTERACTION - SCORE: 7-IND PROBLEM SOLVING: PROBLEM SOLVING - STEP 1: Does the patient need help from a person or device, or need extra time to solve complex problems such as managing a checking account or confronting interpersonal problems? No. PROBLEM SOLVING - STEP 2: Does the patient require extra time to make decisions or solve problems, OR does s/he have slight dif ficulty reading, initiating, or self-correcting in unfamiliar situations? No. PROBLEM SOLVING - SCORE: 7-IND MEMORY: MEMORY - STEP 1: Does the patient need help from a person or device, or need extra time to remember frequently encount ered people, daily routines, and executing requests? No. MEMORY - STEP 2: Does the patient have slight difficulty recognizing frequently encountered people, daily routines, or executing requests without the need for repetition or using self-initiated or environmental cues to remember? Yes. MEMORY - SCORE: 6-DEMETRI SIGNATURE PANEL: The following modified sections: Eating - Score, Grooming - Score, Bathing - Score, Dressing - Upper Body - Score, Dressing - Lower Body - Score, Toileting - Score, Transfers: Bed, Chair, Wheelchair - S core, Transfers: Toilet - Score, Transfers: Shower - Score, Transfers: Tub - Score, Comprehension - S core, Expression - Score, Social Interaction - Score, Problem Solving - Score, Memory - Score were [e lectronically] signed by Jenelle Allen OT on FriFeb 02 2019 15:04:17 T-0500 ([facility])
--- NOTE | 2019-02-02 17:46 | P.PN ---
Subjective Date of Service: 02/02/19 Chief Complaint: FEELS GOOD. Subjective: Improving ABLE TO AMBULATE NOW WITH WALKER. FEELS GOOD. NO NEW ISSUES, SOME SWELLING OF R LEG. SOME JERKINS OF HANDS SINCE BEING ON BACLOFEN. IT WORKED BUT SHE HAS SE. Review of Systems 10-point ROS is otherwise unremarkable Physical Examination - Vital Signs Temperature: 96.8 F Blood Pressure: 115/52 Pulse: 67 Respirations: 18 Pulse Ox (%): 97 - Physical Exam General: Alert, Mild distress HEENT: Atraumatic, PERRLA, EOMI Neck: Supple, JVD not distended Respiratory: Clear to auscultation bilaterally, Normal air movement Cardiovascular: Regular rate/rhythm, Normal S1 S2 Gastrointestinal: Normal bowel sounds, No tenderness Musculoskeletal: No tenderness Integumentary: No rashes Neurological: Normal speech, Normal tone, Normal affect Lymphatics: No axilla or inguinal lymphadenopathy - Studies Medications List Reviewed: Yes Assessment And Plan - Current Problems (Diagnosis) (1) DJD (degenerative joint disease) Current Visit: Yes Status: Chronic Plan: 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 SHE WILL AVOID NSAIDS. TRY COSAMINE ASU. R KNEE MAY NEED TKR LATER. STABLE FOR NOW. 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 WILL REDUCE THE DOSE OF TORESEMIDE IF CONTINUES. (3) Closed right hip fracture Current Visit: No Status: Acute Plan: STABLE DOING WELL. ON AC XARELTO. Qualifiers: Encounter type: subsequent encounter (4) Dyspnea Current Visit: Yes Status: Acute Plan: CHECK BNP , D DIMER CXR ALB, ATROVENT NEBS. STABLE FOR NOW. ORDER CT ANGIO AND VENOUS DOPPLER. SHE IS POST OP. SHE MAY NOT HAVE PE BUT AT RISK FOR NOW. (5) ESBL (extended spectrum beta-lactamase) producing bacteria infection Current Visit: Yes Status: Acute Plan: IT IS MOST LIKELY CONTAMINANT. FIRST UA WAS POSITIVE BUT WAS SO CALLED CLEAN CATCH. SECOND UA I ASKED FOR SPECICATH AND WAS TOTALLY NORMAL. 3RD UA WAS POSITIVE IN REHAB BUT WAS CLEAN CATCH THAT IS NOT USUALLY CLEAN IN WOMEN. I ASKED FOR SPECICATH AND THAT IS UA POSITIVE BUT SHE REALLY HAS NO SYMPTOMS EXCEPT WBC IS MILD HIGHER. THIS IS THE ONLY REASON I WILL TREAT UNTIL CULTURE COMES BACK. POSITIVE UA WITHOUT SYMPTOMS DOES NOT NEED TREATMENT. SHE IS BETTER ON CIPRO. TO CONTINUE FOR A WEEK. ESBL WAS A COLONIZED BACTERIA IT WAS COLLECTED WHAT I CALL UN-CLEAN. SPECICATH SHOWED REGULAR E COLI AND NOT ESBL. (6) Myoclonia Current Visit: Yes Status: Acute Plan: FROM BACLOFEN STOP AND CHANGE TO SIMPLER MEDICINE- ROBAXIN.
[2019-02-02] MEDS ORDERED: METHOCARBAMOL 500 MG TAB PO PRN (17:47)
--- NOTE | 2019-02-02 19:05 | R.PN ---
ENCOUNTER DATE AND TIME: 02/02/2019 19:02 (CDT) NAME CELSO MADISON DATE OF : 1935 DATE OF ADMISSION: 01/15/2019 16:46 (CDT) RIGHT MINIMALLY DISPLACED FEMORAL NECK FRACTURE JUST BELOW THE HEADCHIEF COMPLAINT: Right hip fracture. SUBJECTIVE: Pt denied any Shortness of Breath. Pt denied any depression. Ambulated 150' with a rolling walker, standby assistance and touch down weight bearing. Self-propelle d wheelchair 250' with modified independence. She reports muscle spasms at night after exercise. Will start magnesium 400 mg twice daily and baclof en 5 mg at night. WBC 7.5, Hgb 12.3, prealbumin 22.4. Repeat UA is negative. VITAL SIGNS Temperature: 97.4 F SBP/DBP: 115/52 Pulse: 67 Resp: 16 MEDICATION ALLERGIES: PENICILLIN ENVIRONMENTAL ALLERGIES: None Known - Substance Allergies None Known - Other Allergies None Known NURSING: - Shower allowing shower - Skin care per protocol PRECAUTIONS: - Posterior Hip Precaution No adduction across midline No external rotation No hip flexion >90 degrees No internal rotation No wheel chair propulsion - Weight Bearing Precaution TTWB right LE ACTIVITIES OOB only with supervision THERAPIES: - Dietary and Nutrition Adequate Nutrition. Nutritional Education. Nutritional Supplements. PHYSICAL EXAM - Gen Alert and awake Lying in bed No apparent distress Oriented to: person, time, and place - Skin No skin breakdown. Normacephalic - Eyes No abnormalities - ENMT No abnormalities - Neck No abnormalities - CVS RRR - Resp Clear to auscultation - Abd Soft - GI Non distended Deferred - No abnormalities - Ext Mild left lower extremity edema. - MSK 4+/5 weakness in right lower extremity - Neuro 4/5 strength right lower extremity. - Psych No abnormalities ASSESSMENT: Pt. is a 83 yo Right-handed white female.On 01/13/2019 she was admitted to [facility] with diagnosis RIGHT MINIMALLY DISPLACED FEMORAL NECK FRACTURE JUST BELOW THE HEAD.Her [facility] ent category is Orthopaedic Disorders 08 - Unilateral Hip Fracture (08.11).Pre-morbidly, Pt. was ind ependent/mod-I in Self-Care, Sphincter Control, Transfers Control, Locomotion, Communication, and Soc ial Cognition; and she had good Sphincter Control.Currently, she has deficits of Self-Care, Transfers Control, Locomotion, Endurance, Balance, and Safety Awareness.Pt. is now referred to [facility] for acute in-patient rehabilitation in order to maximize patient's functional inde pendence in activities of daily living, strength, ROM, and mobility.- Rehab Goal Patient has realistic goal of being discharged at assistance level 6-Amado to reside at Home with Fam tevin/Relatives. MDM/PLAN: - Physical Therapy Decreased range of motion - to improve, our physical therapists will perform initial evaluation of p t's status upon admission and devise an individualized program for increasing patient's Range of Adria on. Gait dysfunction - to improve, our physical therapists will perform initial evaluation of pt's statu s upon admission and devise an individualized program for Gait Training, and Wheel Chair mobility Inability to transfer - to improve, our physical therapists will perform initial evaluation of pt's status upon admission and devise an individualized program for Bed mobility Need for home safety evaluation - to improve, our physical therapists will perform initial evaluatio n of pt's status upon admission and devise an individualized program for Home Evaluation Need in caregiver upon discharge - to improve, our physical therapists will perform initial evaluati on of pt's status upon admission and devise an individualized program for Caregiver Training Edema - to improve, our physical therapists will perform initial evaluation of pt's status upon admi ssion and devise an individualized program for Elevation Training, and Lymphedema Therapy New precaution - to improve, our physical therapists will perform initial evaluation of pt's status upon admission and devise an individualized program for Patient precaution education Poor balance - to improve, our physical therapists will perform initial evaluation of pt's status up on admission and devise an individualized program for Balance Training Poor endurance - to improve, our physical therapists will perform initial evaluation of pt's status upon admission and devise an individualized program for Endurance Training Weakness - to improve, our physical therapists will perform initial evaluation of pt's status upon a dmission and devise an individualized program for Aquatic Therapy, Neuromuscular Reeducation, and Str engthening Achieving independence - to improve, our physical therapists will perform initial evaluation of pt's status upon admission and devise an individualized program for Community Reintegration Activities - Occupational Therapy ADL deficits - to improve, our occupation therapists will perform initial evaluation of pt's status upon admission and devise an individualized program for Bathing, Bed mobility, Community Reintegratio n, Cooking, Dressing, Eating, Fine Motor Skills, Grooming, Homemaking, Kitchen Mobility, Laundry, Pat ient Education, Safety Awareness, Splinting - Positioning, Transfers(Toilet, Tub, Shower), and Wheel Chair Management Need for care worker - to improve, our occupation therapists will perform initial evaluation of pt's status upon admission and devise an individualized program for Caregiver Training Weakness - to improve, our occupation therapists will perform initial evaluation of pt's status upon admission and devise an individualized program for Aquatic Therapy, Balance, Endurance, UE ROM, and UE strengthening - Other See attached MAR (Medication Administration Record) - Anterior Hip Precaution No abduction No active extension No adduction across midline No external rotation No hip flexion >90 degrees No internal rotation - Diet - Liquid Texture Continue Regular - Tube Feed Continue N/A - Diet Type Continue Regular - Posterior Hip Precaution No adduction across midline No external rotation No hip flexion >90 degrees No internal rotation No wheel chair propulsion - Weight Bearing Precaution TTWB right LE - Skin care per protocol - Diet - Solid Texture Continue Regular - Shower allowing shower FUNCTIONAL STATUS: UPDATED AT WEEKLY TEAM CONFERENCE - Bladder Same accident frequency: 7-Ind - No accidents in the past 7 days - Bowel Same accident frequency: 7-Ind - No accidents in the past 7 days - Walking Same score based on distance walked: 1(<=50ft) - Wheelchair Same score based on distance traveled: 0(N/A) FUNCTIONAL STATUS: - Self-Care A. Eating sup B. Grooming sup C. Bathing modA D. Dressing - Upper Gage E. Dressing - Lower maxA F. Toileting maxA - Sphincter Control G: Bladder control Ind H: Bowel control Ind - Transfers Control I. Bed/Chair/Wheelchair modA J. Toilet modA K. Tub/Shower ADNO - Locomotion L. Walk/Wheelchair (C) maxA L. Walk/Wheelchair (W) maxA M. Stairs ADNO - Communication N. Comprehension (B) Ind O. Expression (B) Ind - Social Cognition P. Social Interaction Ind Q. Problem Solving Ind R. Memory Ind - Endurance Fair - Balance Fair - Safety Awareness Fair CURRENT FUNC. DEFICITS: Self-Care, Transfers Control, Locomotion, Endurance, Balance, and Safety Awareness SIGNATURE PANEL: (CDT)
--- NOTE | 2019-02-03 01:46 | FAST ---
SHIFT START DATE/TIME: 02/02/2019 19:00 (CDT) SHIFT END DATE/TIME: 02/03/2019 07:00 (CDT) NAME CELSO MADISON DATE OF : 1935 DATE OF ADMISSION: 01/15/2019 16:46 (CDT) PHONE: AGE: 83 SSN# [id number] GENDER: Female ENCOUNTER PHYSICIAN: Dr. Raúl Llanes M.D. ADMISSION DIAGNOSIS: - Orthopaedic Disorders 08 - Unilateral Hip Fracture (08.11) RIGHT MINIMALLY DISPLACED FEMORAL NECK FRACTURE JUST BELOW THE HEAD. EATING: Activity did not occur on this shift EATING - SCORE: 0-UNK GROOMING: Wash, rinse, and dry hands GROOMING - STEP 1: Does the patient require the assistance of a person or device, or need extra time when grooming? Yes. GROOMING - STEP 2: Does the patient require the assistance of a helper? No. The patient only requires an assistive devic e, OR takes more than reasonable time to groom, OR there is a concern for safety as the patient groom s GROOMING - SCORE: 6-DEMETRI BATHING: Activity did not occur on this shift BATHING - SCORE: 0-UNK DRESSING - UPPER BODY: Patient is not dressing in public clothing ARTICLES SCORE Total number of steps: 0 DRESSING - UPPER BODY - SCORE: 0-UNK DRESSING - LOWER BODY: Patient is not dressing in public clothing ARTICLES SCORE Total number of steps: 0 DRESSING - LOWER BODY - SCORE: 0-UNK TOILETING: TOILETING - STEP 1: Does the patient require the assistance of a person or device, or need extra time with toileting? Yes . TOILETING - STEP 2: Does the patient require the assistance of a helper? Yes. TOILETING - STEP 3: How much assistance does the patient require from the helper? Only supervision TOILETING - SCORE: 5-SUP BLADDER MANAGEMENT: BLADDER MANAGEMENT - STEP 1: Does the patient control the bladder completely and intentionally without equipment or devices or med ications, and is always continent? No. BLADDER MANAGEMENT - STEP 2: Does the patient require the assistance of a helper? No, patient requires and independently uses an a ssistive device, such as a urinal, bedpan, bedside commode, catheter, absorbent pad, or collecting de vice BLADDER MANAGEMENT - SCORE: 6-DEMETRI BOWEL MANAGEMENT: BOWEL MANAGEMENT - STEP 1: Does the patient control bowels completely and intentionally without equipment devices or medications AND is always continent? No. BOWEL MANAGEMENT - STEP 2: Does the patient require the assistance of a helper? No, patient requires medication for control such as stool softeners, suppositories, laxatives, enemas, or OTC medications BOWEL MANAGEMENT - SCORE: 6-DEMETRI TRANSFERS: BED, CHAIR, WHEELCHAIR: TRANSFERS: BED, CHAIR, WHEELCHAIR - STEP 1: Does the patient require assistance of a person or device, or need extra time with bed, chair, or whe elchair transfers? Yes. TRANSFERS: BED, CHAIR, WHEELCHAIR - STEP 2: Does the patient require the assistance of a helper? Yes. TRANSFERS: BED, CHAIR, WHEELCHAIR - STEP 3: How much assistance does the patient require from the helper? Steadying/guiding assistance TRANSFERS: BED, CHAIR, WHEELCHAIR - SCORE: 4-MIN TRANSFERS: TOILET: TRANSFERS: TOILET - STEP 1: Does the patient require the assistance of a person or device, or need extra time with toilet transfe rs? Yes. TRANSFERS: TOILET - STEP 2: Does the patient require the assistance of a helper? No. Patient only requires an assistive device banerjee ch as a grab bar or special seat, OR s/he takes more than reasonable time to perform toilet transfers , OR there is a safety concern when s/he performs toilet transfers. TRANSFERS: TOILET - SCORE: 6-DEMETRI TRANSFERS: SHOWER: Activity did not occur on this shift TRANSFERS: SHOWER - SCORE: 0-UNK TRANSFERS: TUB: Activity did not occur on this shift TRANSFERS: TUB - SCORE: 0-UNK LOCOMOTION: WALK: Activity did not occur on this shift LOCOMOTION: WALK - SCORE: 0-UNK LOCOMOTION: WHEELCHAIR: Activity did not occur on this shift LOCOMOTION: WHEELCHAIR - SCORE: 0-UNK COMPREHENSION: COMPREHENSION: TYPE: Both COMPREHENSION - STEP 1: Does the patient require help from a person or device, or need extra time to understand complex and a bstract ideas (such as current events, finances, discharge planning, medical issues, relationships, e tc)? No. COMPREHENSION - STEP 2: Does the patient need extra time, require an assistive device (such as glasses for visual comprehensi on or a hearing aid for auditory comprehension) or does s/he have mild difficulty understanding compl ex and abstract information? Yes. COMPREHENSION - SCORE: 6-DEMERTI EXPRESSION EXPRESSION: TYPE: Both EXPRESSION - STEP 1: Does the patient require help from a person or device, or need extra time expressing complex and abst ract ideas (such as current events, finances, discharge planning, medical issues, relationships, etc) ? No. EXPRESSION - STEP 2: Does the patient need extra time, require an assistive device (such as augmentive communication syste m or a communication board), OR does s/he have mild difficulty expressing complex and abstract ideas (including mild dysarthria or mild word-find problems)? No. EXPRESSION - SCORE: 7-IND SOCIAL INTERACTION: SOCIAL INTERACTION - STEP 1: Does the patient require a helper to interact with others in social and therapeutic situations? No. SOCIAL INTERACTION - STEP 2: Does the patient need extra time in social situations, OR does s/he interact with staff, other patien ts, and family members ONLY in structured environments, OR does s/he require medication for social in teraction? Yes, patient needs extra time SOCIAL INTERACTION - SCORE: 6-DEMETRI PROBLEM SOLVING: PROBLEM SOLVING - STEP 1: Does the patient need help from a person or device, or need extra time to solve complex problems such as managing a checking account or confronting interpersonal problems? No. PROBLEM SOLVING - STEP 2: Does the patient require extra time to make decisions or solve problems, OR does s/he have slight dif ficulty reading, initiating, or self-correcting in unfamiliar situations? Yes, patient needs extra ti me. PROBLEM SOLVING - SCORE: 6-DEMETRI MEMORY: MEMORY - STEP 1: Does the patient need help from a person or device, or need extra time to remember frequently encount ered people, daily routines, and executing requests? No. MEMORY - STEP 2: Does the patient have slight difficulty recognizing frequently encountered people, daily routines, or executing requests without the need for repetition or using self-initiated or environmental cues to remember? Yes. MEMORY - SCORE: 6-DEMETRI SIGNATURE PANEL: The following modified sections: Eating - Score, Grooming - Score, Dressing - Upper Body - Score, Malik ssing - Lower Body - Score, Toileting - Score, Bladder Management - Score, Bowel Management - Score, Transfers: Bed, Chair, Wheelchair - Score, Transfers: Toilet - Score, Transfers: Shower - Score, Yeung sfers: Tub - Score, Locomotion: Walk - Score, Locomotion: Wheelchair - Score, Comprehension - Score, Expression - Score, Social Interaction - Score, Problem Solving - Score, Memory - Score were [electro nically] signed by Janee Adna CNA on FriFeb 03 2019 01:45:21 GMT-0500 (Central Daylight Time)
[2019-02-03] MEDS: LEVOTHYROXINE SOD 0.075 MG TAB PO SCH (06:26)
[2019-02-03] MEDS: RANITIDINE 150 MG TABLET PO SCH ×2 (06:26→16:28)
[2019-02-03] MEDS: TRAMADOL HCL 50 MG TAB PO PRN ×2 (06:37→12:23)
[2019-02-03 07:16] VITALS: O2SAT 95
[2019-02-03 07:22] VITALS: TEMP 97.4
[2019-02-03] MEDS: CRANBERRY FRUIT EXTRACT 200 MG CAP PO SCH (08:31)
[2019-02-03] MEDS: POTASSIUM CL SA 10 MEQ TAB PO SCH (08:32)
[2019-02-03] MEDS: GLUCOSAM/CHONDROI 500mg-400mg PO SCH (08:32)
[2019-02-03] MEDS: GABAPENTIN 300 MG CAP PO SCH (08:33)
[2019-02-03] MEDS: THIAMINE HCL 100 MG TABLET PO SCH (08:33)
[2019-02-03] MEDS: TORSEMIDE 20 MG TAB PO SCH (08:33)
[2019-02-03] MEDS: MAGNESIUM OXIDE 400 MG TAB PO SCH (08:34)
[2019-02-03] MEDS: LIDOCAINE 5% PATCH TOP SCH (08:34)
[2019-02-03] MEDS: JUVEN PACKET PO SCH (08:34)
[2019-02-03] MEDS: RIVAROXABAN 10 MG TABLET PO SCH (08:34)
[2019-02-03] MEDS: PROMOD 30 ML DOSE PO SCH (08:35)
[2019-02-03 08:36] VITALS: BP 109/54
--- NOTE | 2019-02-03 10:33 | FAST ---
ENCOUNTER DATE AND TIME: 02/03/2019 08:00 (CDT) NAME CELSO MADISON DATE OF : 1935 DATE OF ADMISSION: 01/15/2019 16:46 (CDT) PHONE: AGE: 83 SSN# [id number] GENDER: Female ENCOUNTER PHYSICIAN: Dr. Raúl Llanes M.D. ADMISSION DIAGNOSIS: - Orthopaedic Disorders 08 - Unilateral Hip Fracture (08.11) RIGHT MINIMALLY DISPLACED FEMORAL NECK FRACTURE JUST BELOW THE HEAD. EATING: Activity did not occur on this shift EATING - SCORE: 0-UNK GROOMING: Activity did not occur on this shift GROOMING - SCORE: 0-UNK BATHING: Activity did not occur on this shift BATHING - SCORE: 0-UNK DRESSING - UPPER BODY: Activity did not occur on this shift Patient is not dressing in public clothing ARTICLES SCORE Total number of steps: 0 DRESSING - UPPER BODY - SCORE: 0-UNK DRESSING - LOWER BODY: Activity did not occur on this shift Patient is not dressing in public clothing ARTICLES SCORE Total number of steps: 0 DRESSING - LOWER BODY - SCORE: 0-UNK TOILETING: Activity did not occur on this shift TOILETING - SCORE: 0-UNK BLADDER MANAGEMENT: Activity did not occur on this shift BLADDER MANAGEMENT - SCORE: 7-IND BOWEL MANAGEMENT: Activity did not occur on this shift BOWEL MANAGEMENT - SCORE: 7-IND TRANSFERS: BED, CHAIR, WHEELCHAIR: TRANSFERS: BED, CHAIR, WHEELCHAIR - STEP 1: Does the patient require assistance of a person or device, or need extra time with bed, chair, or whe elchair transfers? Yes. TRANSFERS: BED, CHAIR, WHEELCHAIR - STEP 2: Does the patient require the assistance of a helper? No. Patient only requires an assistive device fo r bed, chair, wheelchair transfers such as a sliding board, grab bar, or brace, OR s/he takes more th an reasonable time, OR there is a safety concern when s/he performs the transfers TRANSFERS: BED, CHAIR, WHEELCHAIR - SCORE: 6-DEMETRI TRANSFERS: TOILET: Activity did not occur on this shift TRANSFERS: TOILET - SCORE: 0-UNK TRANSFERS: SHOWER: Activity did not occur on this shift TRANSFERS: SHOWER - SCORE: 0-UNK TRANSFERS: TUB: Activity did not occur on this shift TRANSFERS: TUB - SCORE: 0-UNK LOCOMOTION: WALK: HOUSEHOLD EXCEPTION: Patient walks at least 50 feet independently (with or without a device) LOCOMOTION: WALK - SCORE: 5-SUP LOCOMOTION: WHEELCHAIR: LOCOMOTION: WHEELCHAIR - STEP 1: Does the patient need help to go 150 feet in a wheelchair? No. LOCOMOTION: WHEELCHAIR - SCORE: 6-DEMETRI LOCOMOTION: STAIRS: Patient goes up and down less than 4 to 6 stairs LOCOMOTION: STAIRS - SCORE: 1-DEP COMPREHENSION: COMPREHENSION - SCORE: 0-UNK EXPRESSION EXPRESSION - SCORE: 0-UNK SOCIAL INTERACTION: SOCIAL INTERACTION - SCORE: 0-UNK PROBLEM SOLVING: PROBLEM SOLVING - SCORE: 0-UNK MEMORY: MEMORY - SCORE: 0-UNK SIGNATURE PANEL: The following modified sections: Transfers: Bed, Chair, Wheelchair - Score, Transfers: Toilet - Score , Locomotion: Walk - Score, Locomotion: Wheelchair - Score, Locomotion: Stairs - Score were [electron icapanchito] signed by Chris Leonard PT on FriFeb 03 2019 10:32:26 T-0500 (Central Daylight Time)
--- NOTE | 2019-02-03 15:50 | FAST ---
ENCOUNTER DATE AND TIME: 02/03/2019 08:00 (CDT) NAME CELSO MADISON DATE OF : 1935 DATE OF ADMISSION: 01/15/2019 16:46 (CDT) PHONE: AGE: 83 SSN# [id number] GENDER: Female ENCOUNTER PHYSICIAN: Dr. Raúl Llanes M.D. ADMISSION DIAGNOSIS: - Orthopaedic Disorders 08 - Unilateral Hip Fracture (08.11) RIGHT MINIMALLY DISPLACED FEMORAL NECK FRACTURE JUST BELOW THE HEAD. EATING: EATING - STEP 1: Does the patient require the assistance of a person or device, or need extra time when eating? No. EATING - SCORE: 7-IND GROOMING: Comb/brush hair Oral care Patient applied make-up Wash, rinse, and dry face Wash, rinse, and dry hands GROOMING - STEP 1: Does the patient require the assistance of a person or device, or need extra time when grooming? No. GROOMING - SCORE: 7-IND BATHING: Abdomen Buttocks Chest Left arm Left lower leg and foot Left upper leg Perineal area Right arm Right lower leg and foot Right upper leg BATHING - STEP 1: Does the patient require the assistance of a person or device, or need extra time when bathing? Yes. BATHING - STEP 2: Does the patient require the assistance of a helper? No. The patient only requires an assistive devic e such as a bath russel, OR the patient takes more than reasonable time to bathe, OR there is a concern for safety such as regulating water temperature as the patient bathes. BATHING - SCORE: 6-DEMETRI DRESSING - UPPER BODY: T-shirt/pullover shirt (four steps) ARTICLES SCORE Total number of steps: 4 DRESSING - UPPER BODY - STEP 1: Does the patient require help from a person or device, or need extra time when dressing above the coni st? No. DRESSING - UPPER BODY - SCORE: 7-IND DRESSING - LOWER BODY: Elastic waist pants (three steps) Sock - Left foot (one step) Sock - Right foot (one step) Underwear (three steps) ARTICLES SCORE Total number of steps: 8 DRESSING - LOWER BODY - STEP 1: Does the patient require help from a person or device, or need extra time when dressing below the coni st? Yes. DRESSING - LOWER BODY - STEP 2: Does the patient require the assistance of a helper? No. Patient requires an assistive device such as a airplane navigator. OR s/he takes more than reasonable time as s/he dresses the lower body, OR there is a con cern for safety when s/he dresses the lower body DRESSING - LOWER BODY - SCORE: 6-DEMETRI TOILETING: TOILETING - STEP 1: Does the patient require the assistance of a person or device, or need extra time with toileting? Yes . TOILETING - STEP 2: Does the patient require the assistance of a helper? No. TOILETING - SCORE: 6-DEMETRI BLADDER MANAGEMENT: Activity did not occur on this shift BLADDER MANAGEMENT - SCORE: 7-IND BOWEL MANAGEMENT: Activity did not occur on this shift BOWEL MANAGEMENT - SCORE: 7-IND TRANSFERS: BED, CHAIR, WHEELCHAIR: Activity did not occur on this shift TRANSFERS: BED, CHAIR, WHEELCHAIR - SCORE: 0-UNK TRANSFERS: TOILET: TRANSFERS: TOILET - STEP 1: Does the patient require the assistance of a person or device, or need extra time with toilet transfe rs? Yes. TRANSFERS: TOILET - STEP 2: Does the patient require the assistance of a helper? No. Patient only requires an assistive device banerjee ch as a grab bar or special seat, OR s/he takes more than reasonable time to perform toilet transfers , OR there is a safety concern when s/he performs toilet transfers. TRANSFERS: TOILET - SCORE: 6-DEMETRI TRANSFERS: SHOWER: Activity did not occur on this shift TRANSFERS: SHOWER - SCORE: 0-UNK TRANSFERS: TUB: TRANSFERS: TUB - STEP 1: Does the patient require the assistance of a person or device, or need extra time with tub transfers? Yes. TRANSFERS: TUB - STEP 2: Does the patient require the assistance of a helper? No. Only requires the assistance of an assistive device, OR takes more than reasonable time, OR there is a concern for safety when s/he performs tub transfers TRANSFERS: TUB - SCORE: 6-DEMETRI LOCOMOTION: WALK: Activity did not occur on this shift LOCOMOTION: WALK - SCORE: 0-UNK LOCOMOTION: WHEELCHAIR: Activity did not occur on this shift LOCOMOTION: WHEELCHAIR - SCORE: 0-UNK LOCOMOTION: STAIRS: Activity did not occur on this shift LOCOMOTION: STAIRS - SCORE: 0-UNK COMPREHENSION: COMPREHENSION: TYPE: Both COMPREHENSION - STEP 1: Does the patient require help from a person or device, or need extra time to understand complex and a bstract ideas (such as current events, finances, discharge planning, medical issues, relationships, e tc)? No. COMPREHENSION - STEP 2: Does the patient need extra time, require an assistive device (such as glasses for visual comprehensi on or a hearing aid for auditory comprehension) or does s/he have mild difficulty understanding compl ex and abstract information? No. COMPREHENSION - SCORE: 7-IND EXPRESSION EXPRESSION: TYPE: Both EXPRESSION - STEP 1: Does the patient require help from a person or device, or need extra time expressing complex and abst ract ideas (such as current events, finances, discharge planning, medical issues, relationships, etc) ? No. EXPRESSION - STEP 2: Does the patient need extra time, require an assistive device (such as augmentive communication syste m or a communication board), OR does s/he have mild difficulty expressing complex and abstract ideas (including mild dysarthria or mild word-find problems)? No. EXPRESSION - SCORE: 7-IND SOCIAL INTERACTION: SOCIAL INTERACTION - STEP 1: Does the patient require a helper to interact with others in social and therapeutic situations? No. SOCIAL INTERACTION - STEP 2: Does the patient need extra time in social situations, OR does s/he interact with staff, other patien ts, and family members ONLY in structured environments, OR does s/he require medication for social in teraction? No. SOCIAL INTERACTION - SCORE: 7-IND PROBLEM SOLVING: PROBLEM SOLVING - STEP 1: Does the patient need help from a person or device, or need extra time to solve complex problems such as managing a checking account or confronting interpersonal problems? No. PROBLEM SOLVING - STEP 2: Does the patient require extra time to make decisions or solve problems, OR does s/he have slight dif ficulty reading, initiating, or self-correcting in unfamiliar situations? No. PROBLEM SOLVING - SCORE: 7-IND MEMORY: MEMORY - STEP 1: Does the patient need help from a person or device, or need extra time to remember frequently encount ered people, daily routines, and executing requests? No. MEMORY - STEP 2: Does the patient have slight difficulty recognizing frequently encountered people, daily routines, or executing requests without the need for repetition or using self-initiated or environmental cues to remember? No. MEMORY - SCORE: 7-IND SIGNATURE PANEL: The following modified sections: Eating - Score, Grooming - Score, Bathing - Score, Dressing - Upper Body - Score, Dressing - Lower Body - Score, Toileting - Score, Transfers: Bed, Chair, Wheelchair - S core, Transfers: Toilet - Score, Transfers: Shower - Score, Transfers: Tub - Score, Comprehension - S core, Expression - Score, Social Interaction - Score, Problem Solving - Score, Memory - Score were [e lectronically] signed by Jenelle Allen OT on FriFeb 03 2019 15:49:19 T-0500 (Central Daylight T ivan)
--- NOTE | 2019-02-03 16:20 | FAST ---
SHIFT START DATE/TIME: 02/03/2019 07:00 (CDT) SHIFT END DATE/TIME: 02/03/2019 19:00 (CDT) NAME CELSO MADISON DATE OF : 1935 DATE OF ADMISSION: 01/15/2019 16:46 (CDT) PHONE: AGE: 83 N# [id number] GENDER: Female ENCOUNTER PHYSICIAN: Dr. Raúl Llanes M.D. ADMISSION DIAGNOSIS: - Orthopaedic Disorders 08 - Unilateral Hip Fracture (08.11) RIGHT MINIMALLY DISPLACED FEMORAL NECK FRACTURE JUST BELOW THE HEAD. EATING: EATING - STEP 1: Does the patient require the assistance of a person or device, or need extra time when eating? Yes. EATING - STEP 2: Does the patient require the assistance of a helper? Yes. EATING - STEP 3: Does the patient perform half or more of the eating tasks? Yes. EATING - STEP 4: Does the patient need only supervision, cuing, coaxing OR help to apply an orthosis OR help to cut fo od, open containers, pour liquids, or butter bread? Yes. EATING - SCORE: 5-SUP GROOMING: Activity did not occur on this shift GROOMING - SCORE: 0-UNK BATHING: Activity did not occur on this shift BATHING - SCORE: 0-UNK DRESSING - UPPER BODY: Activity did not occur on this shift ARTICLES SCORE Total number of steps: 0 DRESSING - UPPER BODY - SCORE: 0-UNK DRESSING - LOWER BODY: Activity did not occur on this shift ARTICLES SCORE Total number of steps: 0 DRESSING - LOWER BODY - SCORE: 0-UNK TOILETING: TOILETING - STEP 1: Does the patient require the assistance of a person or device, or need extra time with toileting? Yes . TOILETING - STEP 2: Does the patient require the assistance of a helper? Yes. TOILETING - STEP 3: How much assistance does the patient require from the helper? Only supervision TOILETING - SCORE: 5-SUP BLADDER MANAGEMENT: BLADDER MANAGEMENT - STEP 1: Does the patient control the bladder completely and intentionally without equipment or devices or med ications, and is always continent? No. BLADDER MANAGEMENT - STEP 2: Does the patient require the assistance of a helper? No, patient requires and independently uses an a ssistive device, such as a urinal, bedpan, bedside commode, catheter, absorbent pad, or collecting de vice BLADDER MANAGEMENT - SCORE: 6-DEMETRI BOWEL MANAGEMENT: BOWEL MANAGEMENT - STEP 1: Does the patient control bowels completely and intentionally without equipment devices or medications AND is always continent? No. BOWEL MANAGEMENT - STEP 2: Does the patient require the assistance of a helper? No, patient requires and manages independently a n assistive device such as a bedpan, bedside commode, absorbent pad, incontinent device, or collectin g device BOWEL MANAGEMENT - SCORE: 6-DEMETRI TRANSFERS: BED, CHAIR, WHEELCHAIR: TRANSFERS: BED, CHAIR, WHEELCHAIR - STEP 1: Does the patient require assistance of a person or device, or need extra time with bed, chair, or whe elchair transfers? Yes. TRANSFERS: BED, CHAIR, WHEELCHAIR - STEP 2: Does the patient require the assistance of a helper? Yes. TRANSFERS: BED, CHAIR, WHEELCHAIR - STEP 3: How much assistance does the patient require from the helper? Steadying/guiding assistance TRANSFERS: BED, CHAIR, WHEELCHAIR - SCORE: 4-MIN TRANSFERS: TOILET: TRANSFERS: TOILET - STEP 1: Does the patient require the assistance of a person or device, or need extra time with toilet transfe rs? Yes. TRANSFERS: TOILET - STEP 2: Does the patient require the assistance of a helper? Yes. TRANSFERS: TOILET - STEP 3: How much assistance does the patient require from the helper? Patient performs half or more of the tr ansferring tasks TRANSFERS: TOILET - STEP 4: Does the patient need only incidental help such as contact guard or steadying during toilet transfer? No. Patient needs more than incidental help TRANSFERS: TOILET - SCORE: 3-MOD TRANSFERS: SHOWER: Activity did not occur on this shift TRANSFERS: SHOWER - SCORE: 0-UNK TRANSFERS: TUB: Activity did not occur on this shift TRANSFERS: TUB - SCORE: 0-UNK LOCOMOTION: WALK: Activity did not occur on this shift LOCOMOTION: WALK - SCORE: 0-UNK LOCOMOTION: WHEELCHAIR: Activity did not occur on this shift LOCOMOTION: WHEELCHAIR - SCORE: 0-UNK COMPREHENSION: COMPREHENSION: TYPE: Both COMPREHENSION - STEP 1: Does the patient require help from a person or device, or need extra time to understand complex and a bstract ideas (such as current events, finances, discharge planning, medical issues, relationships, e tc)? No. COMPREHENSION - STEP 2: Does the patient need extra time, require an assistive device (such as glasses for visual comprehensi on or a hearing aid for auditory comprehension) or does s/he have mild difficulty understanding compl ex and abstract information? Yes. COMPREHENSION - SCORE: 6-DEMETRI EXPRESSION EXPRESSION: TYPE: Both EXPRESSION - STEP 1: Does the patient require help from a person or device, or need extra time expressing complex and abst ract ideas (such as current events, finances, discharge planning, medical issues, relationships, etc) ? No. EXPRESSION - STEP 2: Does the patient need extra time, require an assistive device (such as augmentive communication syste m or a communication board), OR does s/he have mild difficulty expressing complex and abstract ideas (including mild dysarthria or mild word-find problems)? Yes. EXPRESSION - SCORE: 6-DEMETRI SOCIAL INTERACTION: SOCIAL INTERACTION - STEP 1: Does the patient require a helper to interact with others in social and therapeutic situations? No. SOCIAL INTERACTION - STEP 2: Does the patient need extra time in social situations, OR does s/he interact with staff, other patien ts, and family members ONLY in structured environments, OR does s/he require medication for social in teraction? Yes, patient needs extra time SOCIAL INTERACTION - SCORE: 6-DEMETRI PROBLEM SOLVING: PROBLEM SOLVING - STEP 1: Does the patient need help from a person or device, or need extra time to solve complex problems such as managing a checking account or confronting interpersonal problems? No. PROBLEM SOLVING - STEP 2: Does the patient require extra time to make decisions or solve problems, OR does s/he have slight dif ficulty reading, initiating, or self-correcting in unfamiliar situations? Yes, patient needs extra ti me. PROBLEM SOLVING - SCORE: 6-DEMETRI MEMORY: MEMORY - STEP 1: Does the patient need help from a person or device, or need extra time to remember frequently encount ered people, daily routines, and executing requests? No. MEMORY - STEP 2: Does the patient have slight difficulty recognizing frequently encountered people, daily routines, or executing requests without the need for repetition or using self-initiated or environmental cues to remember? No. MEMORY - SCORE: 7-IND SIGNATURE PANEL: The following modified sections: Eating - Score, Grooming - Score, Bathing - Score, Dressing - Upper Body - Score, Dressing - Lower Body - Score, Toileting - Score, Bladder Management - Score, Bowel Man agement - Score, Transfers: Bed, Chair, Wheelchair - Score, Transfers: Toilet - Score, Transfers: Maggi wer - Score, Transfers: Tub - Score, Locomotion: Walk - Score, Locomotion: Wheelchair - Score, Compre hension - Score, Expression - Score, Social Interaction - Score, Problem Solving - Score, Memory - Sc ore were [electronically] signed by Romeo Mcrae on FriFeb 03 2019 16:19:24 GMT-0500 (Central Daylight Time)
--- NOTE | 2019-02-03 17:38 | P.PN ---
Subjective Date of Service: 02/03/19 Chief Complaint: FEELS GOOD. Subjective: Improving ABLE TO AMBULATE NOW WITH WALKER. FEELS GOOD. NO NEW ISSUES, SOME SWELLING OF R LEG. SOME JERKINS OF HANDS SINCE BEING ON BACLOFEN. IT WORKED BUT SHE HAS SE. SHE DOES NOT HAVE JERKING ANY LONGER ONCE I STOPPED BACLOFEN. SHE IS DOING GOOD ON ROBAXIN. Review of Systems 10-point ROS is otherwise unremarkable Physical Examination - Vital Signs Temperature: 97.4 F Blood Pressure: 109/54 Pulse: 64 Respirations: 16 Pulse Ox (%): 97 - Physical Exam General: Mild distress HEENT: Atraumatic, PERRLA, EOMI Neck: Supple, JVD not distended Respiratory: Clear to auscultation bilaterally, Normal air movement Cardiovascular: Regular rate/rhythm, Normal S1 S2 Gastrointestinal: Normal bowel sounds, No tenderness Musculoskeletal: No tenderness Integumentary: No rashes Neurological: Normal speech, Normal tone, Normal affect Lymphatics: No axilla or inguinal lymphadenopathy - Studies Medications List Reviewed: Yes Assessment And Plan - Current Problems (Diagnosis) (1) DJD (degenerative joint disease) Status: Chronic Plan: 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 SHE WILL AVOID NSAIDS. TRY COSAMINE ASU. R KNEE MAY NEED TKR LATER. STABLE FOR NOW. DC IN STABLE CONDITION. 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 WILL REDUCE THE DOSE OF TORESEMIDE IF CONTINUES. (3) Closed right hip fracture Status: Acute Plan: STABLE DOING WELL. ON AC XARELTO. Qualifiers: Encounter type: subsequent encounter (4) Dyspnea Status: Acute Plan: CHECK BNP , D DIMER CXR ALB, ATROVENT NEBS. STABLE FOR NOW. ORDER CT ANGIO AND VENOUS DOPPLER. SHE IS POST OP. SHE MAY NOT HAVE PE BUT AT RISK FOR NOW. (5) ESBL (extended spectrum beta-lactamase) producing bacteria infection Status: Acute Plan: IT IS MOST LIKELY CONTAMINANT. FIRST UA WAS POSITIVE BUT WAS SO CALLED CLEAN CATCH. SECOND UA I ASKED FOR SPECICATH AND WAS TOTALLY NORMAL. 3RD UA WAS POSITIVE IN REHAB BUT WAS CLEAN CATCH THAT IS NOT USUALLY CLEAN IN WOMEN. I ASKED FOR SPECICATH AND THAT IS UA POSITIVE BUT SHE REALLY HAS NO SYMPTOMS EXCEPT WBC IS MILD HIGHER. THIS IS THE ONLY REASON I WILL TREAT UNTIL CULTURE COMES BACK. POSITIVE UA WITHOUT SYMPTOMS DOES NOT NEED TREATMENT. SHE IS BETTER ON CIPRO. TO CONTINUE FOR A WEEK. ESBL WAS A COLONIZED BACTERIA IT WAS COLLECTED WHAT I CALL UN-CLEAN. SPECICATH SHOWED REGULAR E COLI AND NOT ESBL. (6) Myoclonia Status: Acute Plan: FROM BACLOFEN STOP AND CHANGE TO SIMPLER MEDICINE- ROBAXIN.
== END 2019-02-03 17:20 | disposition home health service (06) | DRG 561 ==
LOC: 5TH 16:46
PROVIDERS: ADMIT Psychiatry & Neurology Neurology with Special Qualifications in Child Neurology; ATTEND Psychiatry & Neurology Neurology with Special Qualifications in Child Neurology
DX: S72.001D Fracture of unspecified part of neck of right femur, subsequent encounter for closed fracture with routine healing (principal); R06.00 Dyspnea, unspecified; M15.9 Polyosteoarthritis, unspecified; G25.3 Myoclonus
CPT/HCPCS: 36415; 71045; 71275; 80048; 81001; 81003; 81015; 82040; 82962; 83735; 83880; 84134; 85025; 85379; 87077; 87086; 87088; 87186; 93970; 94640; 97110; 97112; 97116; 97161; 97530; 97542; Q9967

== ENCOUNTER 2019-04-12 08:15 | Emergency (ER) | payer OTHER ==
[2019-04-12] MEDS ORDERED: KETOROLAC 30 MG/ML INJ ONE (08:41)
[2019-04-12 09:07] LABS: Absolute Lymphocytes (CBC) 2.2 K/uL (0.7-4.9); Basophils % 0.8 % (0-1.3); Hematocrit 42.1 % (36.0-45.0); Lymphocytes % 21.5 % (15.3-44.8); RBC Red Blood Cell Count 4.58 M/uL (3.86-4.86)
[2019-04-12 09:35] LABS: ALT/SGPT 30 U/L (12-78); AST/SGOT 23 U/L (15-37); Albumin 3.6 g/dL (3.4-5.0); Alkaline Phosphatase 128 U/L (45-117); BUN Blood Urea Nitrogen 10 mg/dL (7-18); Bicarbonate 29 mmol/L (21-32); Bilirubin Total 0.4 mg/dL (0.2-1.0); Glucose Level 96 mg/dL (74-106); Potassium 3.7 mmol/L (3.5-5.1); Protein, Total 7.7 g/dL (6.4-8.2); Sodium Level 136 mmol/L (136-145); Troponin (Emerg Dept Use Only) < 0.02 ng/mL (0.0-0.045)
--- NOTE | 2019-04-12 10:06 | RAD REPORT ---
EXAM DESCRIPTION: CT - Chest For Pe Angio - 04/12/2019 9:47 am CLINICAL HISTORY: right shoulder pain / pain with inspiration / recent hip sx COMPARISON: Chest For Pe Angio dated 01/17/2019 TECHNIQUE: Dynamically enhanced 3 mm thick images of the chest were obtained during administration o f approximately 150mL Isovue 370 IV contrast. Coronal and oblique MIP reconstruction images were gene rated and reviewed. Exam utilizes a protocol to evaluate the pulmonary arterial tree. All CT scans are performed using dose optimization technique as appropriate and may include automated exposure control or mA/KV adjustment according to patient size. FINDINGS: No pulmonary emboli are identified. The aorta as imaged shows no acute or suspicious finding. No pericardial thickening or effusion. No acute infiltrate. Motion degradation is present in the mid and lower lung brewer limiting intersti tial evaluation. In the posterolateral right lower lobe near the pleura (image 69/127) there is a 9 m illimeter focal density showing irregular or spiculated margins. No calcifications. This finding was substantially obscured by motion on the December comparison study. Mass is questionably enlarged by 1 m illimeter in diameter. No other lung masses are identified. Pleural effusions seen in December have res olved. No pneumothorax. No pleural based mass. No chest wall mass identified. No rib fracture or acute rib process identifiable. Patient has right s houlder degenerative change. Small calcifications are present along the anterior margin of the scapul a near the glenoid. Degenerative pattern matches the December study. No mediastinal or hilar suspicious masses. IMPRESSION: No pulmonary emboli identified. Patient has a 9 millimeter small spiculated density in the posterolateral right lower lobe. Finding i s concerning for an early malignant process. At 9 mm, the mass should be amenable to characterization with PET-CT imaging. No focal infectious infiltrate seen. Respiratory motion limits interstitial assessment. Minimal inter stitial edema or infiltrate would be possible.
--- NOTE | 2019-04-12 10:22 | EKG ---
Test Date: 2019-04-12 Test Time: 08:49:57 Land Acquisition Manager: GERARDO MEASUREMENT RESULTS: Intervals: Rate: 69 [place]: 142 QRSD: 74 QT: 382 QTc: 409 [place]: P: 80 [place]: 142 QRS: 108 T: 82 INTERPRETIVE STATEMENTS: Normal sinus rhythm Rightward axis Low voltage QRS Septal infarct Abnormal ECG Compared to ECG 01/13/2019 03:38:10 Myocardial infarct finding still present Electronically Signed On 04-12-19 10:21:39 TAWER by Vladislav Arambula
--- NOTE | 2019-04-12 10:55 | ER ---
Nurse's Notes [facility] Name: Parvin Manzo Age: 84 yrs Sex: Female : 1935 Arrival Date: 04/12/2019 Time: 08:17 Bed 6 Private MD: Laureano Echeverria V Diagnosis: Pain in right shoulder;Abnormal findings on diagnostic imaging of lung;Lung Mass Presentation: 04/12 08:34 Presenting complaint: Patient states: right arm since last night, pain with deep tw2 breath, recovering from hip replacement in December, w/home physical therapy. Transition of care: patient was not received from another setting of care. Onset of symptoms was April 12, 2019. Risk Assessment: Do you want to hurt yourself or someone else? Patient reports no desire to harm self or others. Initial Sepsis Screen: Does the patient meet any 2 criteria? No. Patient's initial sepsis screen is negative. Does the patient have a suspected source of infection?. Care prior to arrival: None. 08:34 Method Of Arrival: Wheelchair tw2 08:34 Acuity: ORI 3 tw2 Triage Assessment: 08:35 General: Appears in no apparent distress. well groomed, Behavior is calm, cooperative, tw2 appropriate for age. Pain: Complains of pain in Right shoulder. Historical: - Allergies: 08:36 PENICILLINS (Hives); tw2 - Home Meds: 08:36 levothyroxine oral [Active]; Ranitidine Oral [Active]; aspirin 81 mg Oral chew 1 tab tw2 once daily [Active]; - PMHx: 08:36 GERD; Hypothyroidism; tw2 - PSHx: 08:36 bone transplant; hip replacement; tw2 08:38 back surgical; tw2 - Immunization history:: Adult Immunizations. - Social history:: Smoking status: . - Ebola Screening: : Patient denies travel to an Ebola-affected area in the 21 days before illness onset. Screenin:37 Abuse screen: Denies threats or abuse. Denies injuries from another. Nutritional tw2 screening: No deficits noted. Tuberculosis screening: No symptoms or risk factors identified. Fall Risk Secondary diagnosis (15 points) impaired mobility, Ambulatory Aid- Crutches/Cane/Walker (15 pts). Assessment: 08:44 General: Appears in no apparent distress. slender, Behavior is calm, cooperative, tw2 appropriate for age. Pain: Complains of pain in Right shoulder. Neuro: Level of Consciousness is awake, alert, obeys commands, Oriented to person, place, time, situation. Cardiovascular: Heart tones S1 S2 Patient's skin is warm and dry. Respiratory: Airway is patent Respiratory effort is even, unlabored, Respiratory pattern is regular, symmetrical, Breath sounds are clear bilaterally. Respiratory: Reports pain with respiration. GI: No signs and/or symptoms were reported involving the gastrointestinal system. Abdomen is flat. : No signs and/or symptoms were reported regarding the genitourinary system. EENT: No signs and/or symptoms were reported regarding the EENT system. Derm: No signs and/or symptoms reported regarding the dermatologic system. Musculoskeletal: Circulation, motion, and sensation intact. 08:50 Reassessment: warm blanket provided x1. sg 08:57 Reassessment: Patient appears in no apparent distress at this time. pt requesting more sg warm blankets at this time. 10:17 Reassessment: Patient appears in no apparent distress at this time. Patient and/or tw2 family updated on plan of care and expected duration. Pain level reassessed. Patient is alert, oriented x 3, equal unlabored respirations, skin warm/dry/pink. 10:36 Reassessment: provider at bedside at this time. tw2 11:04 Reassessment: Patient appears in no apparent distress at this time. Patient and/or tw2 family updated on plan of care and expected duration. Pain level reassessed. Patient is alert, oriented x 3, equal unlabored respirations, skin warm/dry/pink. Vital Signs: 08:35 BP 176 / 67; Pulse 73; Resp 17; Temp 98.2(TE); Pulse Ox 99% on R/A; Weight 61.23 kg tw2 (R); Pain 10/10; 10:17 BP 173 / 81; Pulse 55; Resp 17; Pulse Ox 96% on R/A; tw2 11:05 BP 170 / 69; Pulse 75; Resp 17; Pulse Ox 99% on R/A; Pain 6/10; tw2 ED Course: 08:17 Patient arrived in ED. rg4 08:17 Laureano Echeverria MD is Private Physician. rg4 08:20 Jean Calderon MD is Attending Physician. ps1 08:25 Placed in gown. Bed in low position. Adult w/ patient. tw2 08:34 Ya Chu, RN is Primary Nurse. tw2 08:35 Triage completed. tw2 08:35 Arm band placed on. tw2 08:50 vehicle monitor technician on. Pulse ox on. NIBP on. Warm blanket given. Head of bed elevated. sg 08:50 Initial lab(s) drawn, by me, sent to lab. Inserted saline lock: 22 gauge in left sg antecubital area, using aseptic technique. Blood collected. 08:51 EKG done, by electrical and instrument technician. reviewed by Jean Calderon MD. at1 09:48 CT Chest For PE Angio In Process Unspecified. EDMS 10:52 Jose L Segrua MD is Referral Physician. ps1 10:53 Allie Tse MD is Referral Physician. ps1 10:53 Laureano Echeverria MD is Referral Physician. ps1 11:05 No provider procedures requiring assistance completed. IV discontinued, intact, tw2 bleeding controlled, No redness/swelling at site. Pressure dressing applied. Administered Medications: 08:50 Drug: TORadol - Ketorolac 15 mg Route: IVP; Site: left antecubital; sg 11:04 Follow up: Response: No adverse reaction; Pain is decreased tw2 Outcome: 10:55 Discharge ordered by . ps1 11:05 Discharged to home via wheelchair, with family. tw2 11:05 Condition: stable 11:05 Discharge instructions given to patient, family, Instructed on discharge instructions, follow up and referral plans. medication usage, Demonstrated understanding of instructions, follow-up care, medications, Prescriptions given X 2. 11:05 Patient left the ED. tw2 Signatures: Dispatcher [employer] EDMS Jose L Julien, RN RN sg Staci Franklin, legal administrator EKG Tat1 Ya Chu, MADELEINE RN tw2 Yaneth Monroe rg4 Jean Calderon MD MD ps1 Corrections: (The following items were deleted from the chart) 08:44 08:35 BP 176 / 67; Pulse 73bpm; Resp 17bpm; Pulse Ox 99% RA; 61.23 kg Reported; Pain tw2 02/02; tw2
--- NOTE | 2019-04-12 10:55 | EDPHYS ---
Physician Documentation [facility] Name: Parvin Manzo Age: 84 yrs Sex: Female : 1935 Arrival Date: 04/12/2019 Time: 08:17 Bed 6 Private MD: Laureano Echeverria V ED Physician Jean Calderon HPI: 04/12 08:41 This 84 yrs old Female presents to ER via Wheelchair with complaints of Arm ps1 Pain. 08:41 Pain is localized to the right arm. Rated as moderate and started since the accident ps1 but has not been evaluated per patient. Now has reportable pain since yesterday. Worse with extension of arm and internal rotation. Additionally had a right hip surgery a couple of months ago. Reportedly was on anticoagulation and has since been discontinued. She states that she cannot take a deep breath. Not hypoxic. No new leg swelling. HR normal. . Historical: - Allergies: 08:36 PENICILLINS (Hives); tw2 - Home Meds: 08:36 levothyroxine oral [Active]; Ranitidine Oral [Active]; aspirin 81 mg Oral chew 1 tab tw2 once daily [Active]; - PMHx: 08:36 GERD; Hypothyroidism; tw2 - PSHx: 08:36 bone transplant; hip replacement; tw2 08:38 back surgical; tw2 - Immunization history:: Adult Immunizations. - Social history:: Smoking status: . - Ebola Screening: : Patient denies travel to an Ebola-affected area in the 21 days before illness onset. ROS: 08:41 Constitutional: Negative for fever, chills, and weight loss, Eyes: Negative for injury, ps1 pain, redness, and discharge, Cardiovascular: Negative for chest pain, palpitations, and edema, Abdomen/GI: Negative for abdominal pain, nausea, vomiting, diarrhea, and constipation, Back: Negative for injury and pain, Skin: Negative for injury, rash, and discoloration, Neuro: Negative for headache, weakness, numbness, tingling, and seizure. 08:41 Neck: Positive for right trapezius spasm. 08:41 Respiratory: Positive for pain with deep inspiration. Exam: 08:41 Constitutional: This is a well developed, well nourished patient who is awake, alert, ps1 and in no acute distress. Head/Face: Normocephalic, atraumatic. Eyes: Pupils equal round and reactive to light, extra-ocular motions intact. Lids and lashes normal. Conjunctiva and sclera are non-icteric and not injected. Chest/axilla: Normal chest wall appearance and motion. Nontender with no deformity. No lesions are appreciated. Cardiovascular: Regular rate and rhythm. No gallops, murmurs, or rubs. Normal PMI, no JVD. No pulse deficits. Respiratory: Lungs have equal breath sounds bilaterally, clear to auscultation and percussion. No rales, rhonchi or wheezes noted. No increased work of breathing, no retractions or nasal flaring. Abdomen/GI: Soft, non-tender, with normal bowel sounds. No distension or tympany. No guarding or rebound. No evidence of tenderness throughout. Skin: Warm, dry with normal turgor. Normal color with no rashes, no lesions, and no evidence of cellulitis. Neuro: Awake and alert, GCS 15, oriented to person, place, time, and situation. Cranial nerves II-XII grossly intact. Sensory grossly intact. 08:41 Musculoskeletal/extremity: Extremities: grossly normal except: noted in the anterior aspect of right shoulder: ROM: limited active range of motion due to pain, in the anterior aspect of right shoulder, worse with "empty can" test, Circulation is intact in all extremities. Vital Signs: 08:35 BP 176 / 67; Pulse 73; Resp 17; Temp 98.2(TE); Pulse Ox 99% on R/A; Weight 61.23 kg tw2 (R); Pain 10/10; 10:17 BP 173 / 81; Pulse 55; Resp 17; Pulse Ox 96% on R/A; tw2 11:05 BP 170 / 69; Pulse 75; Resp 17; Pulse Ox 99% on R/A; Pain 6/10; tw2 MDM: 08:40 Patient medically screened. ps1 10:56 Differential diagnosis: dislocation, contusion, tendonitis, pulmonary embolism, ps1 pneumonia, atelectasis, lung mass, and others. Data reviewed: vital signs, nurses notes, lab test result(s), radiologic studies, CT scan. Counseling: I had a detailed discussion with the patient and/or guardian regarding: the historical points, exam findings, and any diagnostic results supporting the discharge/admit diagnosis, lab results, radiology results, the need for outpatient follow up, a orthopedic surgeon, oncology. 04/12 08:39 Order name: CBC with Diff; Complete Time: 09:24 ps1 04/12 08:39 Order name: CMP; Complete Time: 09:57 ps1 04/12 08:39 Order name: Troponin (emerg Dept Use Only); Complete Time: 09:57 ps1 04/12 08:39 Order name: CT Chest For PE Angio; Complete Time: 10:24 ps1 04/12 08:39 Order name: EKG; Complete Time: 08:40 tw2 04/12 08:39 Order name: EKG - Nurse/Tech; Complete Time: 08:54 ps1 04/12 08:39 Order name: IV Start; Complete Time: 08:53 tw2 EC:49 Rate is 69 beats/min. Rhythm is regular. Right axis deviation noted. MN interval is ps1 normal. QRS interval is normal. QT interval is normal. No Q waves. T waves are Normal. No ST changes noted. Clinical impression: right axis deviation. Administered Medications: 08:50 Drug: TORadol - Ketorolac 15 mg Route: IVP; Site: left antecubital; sg 11:04 Follow up: Response: No adverse reaction; Pain is decreased tw2 Disposition: 04/12/19 10:55 Discharged to Home. Impression: Abnormal findings on diagnostic imaging of lung, Pain in right shoulder, Lung Mass. - Condition is Stable. - Discharge Instructions: Musculoskeletal Pain, Lung Cancer. - Prescriptions for tramadol 100 mg Oral tablet extended release 24 hr - take 2 tablet by ORAL route once daily; 14 tablet. Anaprox DS 550 mg Oral Tablet - take 1 tablet by ORAL route every 12 hours As needed; 20 tablet. - Medication Reconciliation Form, Thank You Letter, Antibiotic Education, Prescription Opioid Use form. - Follow up: Jose L Segura MD; When: 48 Hours; Reason: Further diagnostic work-up, Recheck today's complaints, Continuance of care, Re-evaluation by your physician. Follow up: Allie Tse MD; When: 48 Hours; Reason: Further diagnostic work-up, Recheck today's complaints, Continuance of care. Follow up: Laureano Echeverria MD; When: 48 Hours; Reason: Further diagnostic work-up, Continuance of care. Follow up: Emergency Department; When: As needed; Reason: Fever > 102 F, Trouble breathing, Worsening of condition. - Problem is new. - Symptoms are unchanged. Signatures: Dispatcher [employer] EDMS Jose L Julien, RN RN sg Ya Chu RN RN tw2 Jean Calderon MD MD ps1 Corrections: (The following items were deleted from the chart) 11:05 10:55 04/12/2019 10:55 Discharged to Home. Impression: Abnormal findings on diagnostic tw2 imaging of lungPain in right shoulder; Lung Mass. Condition is Stable. Forms are Medication Reconciliation Form, Thank You Letter, Antibiotic Education, Prescription Opioid Use. Follow up: Jose L Segura; When: 48 Hours; Reason: Further diagnostic work-up, Recheck today's complaints, Continuance of care, Re-evaluation by your physician. Follow up: Allie Granger; When: 48 Hours; Reason: Further diagnostic work-up, Recheck today's complaints, Continuance of care. Follow up: Laureano Echeverria; When: 48 Hours; Reason: Further diagnostic work-up, Continuance of care. Follow up: Emergency Department; When: As needed; Reason: Fever > 102 F, Trouble breathing, Worsening of condition. Problem is new. Symptoms are unchanged. ps1
[2019-04-12 11:15] VITALS: TEMP 98.2
[2019-04-12 11:17] VITALS: BP 170/69; O2SAT 99
== END 2019-04-12 11:05 | disposition home or self-care (01) ==
LOC: ER 08:15
DX: R91.8 Other nonspecific abnormal finding of lung field (principal); E03.9 Hypothyroidism, unspecified; Z79.82 Long term (current) use of aspirin
CPT/HCPCS: 93005; 85025; 36415; 84484; 80053; 71275; 96374; 99285; Q9967

== ENCOUNTER 2020-04-02 14:44 | Emergency (ER) | payer OTHER ==
--- OUTSIDE RECORDS SUMMARY | 2020-04-02 14:46 | XMS REPORT | Clinical Summary ---
:1935 Author Organization [facility] Address [address] [place] [address] Care Team Providers Name Role Phone Laureano Echeverria MD Primary Care Provider Allergies Active Allergy Reactions Severity Noted Date Comments Penicillins Rash Medium 05/04/2019 Medications Medication Sig Dispensed Refills Start Date End Date Status levothyroxine Take 75 mcg 1 04/05/2019 Act savita (SYNTHROID) 75 mcg by mouth tablet every morning. magnesium oxide 0 Acti ve (MAG-OX) 400 mg (241.3 mg magnesium) tablet KLOR-CON 10 10 mEq Take 10 mEq 1 04/04/2019 Active CR tablet by mouth. torsemide (DEMADEX) 0 05/01/2019 Active 10 MG tablet aspirin (ECOTRIN) 81 Take 81 mg by 0 Active MG enteric coated mouth daily. tablet cholecalciferol, Take by 0 Act savita vitamin D3, (VITAMIN mouth. D3 ORAL) Bifidobacterium Take by 0 Acti ve infantis (ALIGN mouth. ORAL) multivitamin with Take 1 tablet 0 Active minerals tablet by mouth daily. famotidine (PEPCID) 0 06/10/2019 Active 40 MG tablet ranitidine (ZANTAC) Take 150 mg 1 04/08/2019 0 Discontinued 150 MG tablet by mouth 2 20 (Kristen ent (two) times a Discha rge) day before meals. traMADol ER Take 200 mg 0 04/12/2019 07/01/19 Disco ntinued (ULTRAM-ER) 100 mg by mouth 20 ( Non-compliance) 24 hr tablet daily. acetaminophen Take 2 30 tablet 0 06/30/2019 07/05/19 Expir ed (TYLENOL) 500 MG tablets 20 tablet (1,000 mg total) by mouth every 8 (eight) hours for 5 days. traMADol (ULTRAM) 50 Take 1 tablet 28 tablet 0 07/01/201906/26 mg (50 mg total) 20 tabletIndications: by mouth acute pain every 6 (six) hours as needed for moderate pain for up to 7 days .acute pain. Active Problems Problem Noted Date Solitary pulmonary nodule 06/28/2019 Encounters Date Type Specialty Care Team Description 08/04/2019 Telemedicine Cardiothoracic Madi Drummond, Surgery fo [facility] MD portillo Mcgrath, (Primary Dx) Mihaela Lancaster, FIRER LOW PRESSURE 08/02/2019 Travel 08/02/2019 Telephone Cardiothoracic Michellesenmitul, Surgery Mihaela Lancaster, FIRER LOW PRESSURE 07/23/2019 Telephone Cardiothoracic Ivelisse Petty, Surgery [place] 07/22/2019 Telephone Cardiothoracic Meisenbach, Surgery Mihaela Lancaster, FIRER LOW PRESSURE 07/20/2019 Telephone Cardiothoracic Michellesenmitul, Surgery Mihaela Lancaster, FIRER LOW PRESSURE 07/13/2019 Telephone Cardiothoracic Michellesenbach, Surgery Mihaela Lancaster, FIRER LOW PRESSURE 07/08/2019 Telephone Cardiothoracic Michellesenmitul, Surgery Mihaela Lancaster, FIRER LOW PRESSURE 07/07/2019 Office Visit Cardiothoracic Alcides, Visit for wou nd Surgery Mihaela Lancaster, FIRER LOW PRESSURE check (Primar y Dx) 07/07/2019 Lab Lab Madi Drummond, Granulomatou s lung MD disease (HCC) 07/02/2019 Refill Cardiothoracic Meisenbach, Acute pain Surgery Mihaela Lancaster, FIRER LOW PRESSURE 07/02/2019 Refill Cardiothoracic Meisenbach, Acute pain Surgery Mihaela Lancaster, FIRER LOW PRESSURE 07/01/2019 Patient Outreach Marii Eddy, MADELEINE 07/01/2019 Telephone Cardiothoracic Meijesus, Granulomatous lung disease (HCC) (Primary Dx); Surgery Mihaela Lancaster, FIRER LOW PRESSURE Acute pain 07/01/2019 Telephone General Surgery Madi Drummond MD 06/28/2019 Anesthesia Event Cardiothoracic Cristian Bryant, Surgery Trice Guzmán 06/28/2019 Surgery Cardiothoracic Madi Drummond, RIGHT Surgery ROBOT-ASSISTED, THORACOSCOPIC R IGHT LOWER LOBE WEDG E RESECTION THERAPEUTIC , PERCUTANIOUS NE EDLE LOCALIZATION AN D BIOPSY OF NODUL E, CRYOABLATION 06/28/2019 Hospital Encounter General Internal Madi Drummond, So litary pulmonary - Medicine nodule 06/30/2019 06/22/2019 Telephone Cardiothoracic Ivelisse Petty Surgery MA 06/21/2019 Telephone Cardiothoracic Alcides, Surgery Mihaela Lancaster NP 06/17/2019 Lab Lab Madi Drummond, Lung nodule; Pre-op testing 06/15/2019 Hospital Encounter Pulmonology Madi Drummond Lung n odule MD 06/15/2019 Office Visit Cardiothoracic Madi Drummond Lung nodtessy bernal (Primary Dx); Surgery Pre-op testing 06/15/2019 Hospital Encounter Radiology Madi Drummond Lung n odule MD 06/15/2019 Orders Only Cardiothoracic Alcides, Lung nodule ( Primary Dx); Surgery Mihaela Lancaster NP Pre-op testin g 06/14/2019 Telephone Cardiothoracic Les[facility] [place] 05/18/2019 Telephone Cardiothoracic Lesley Bunkie, [place] 05/13/2019 Orders Only Cardiothoracic Lesley, Lung nodule [facility] [place] (Primary Dx) 05/11/2019 Office Visit Cardiothoracic Madi Drummond Lung aramis bernal Surgery (Primary Dx) 05/07/2019 Hospital Encounter Radiology Madi Drummond Lung n odule MD 05/07/2019 Telephone Cardiothoracic Ren[facility] [place] 05/04/2019 Hospital Encounter Radiology Madi Drummond MD 05/04/2019 Office Visit Cardiothoracic Madi Drummond Lung aramis bernal Surgery (Primary Dx) 04/30/2019 Telephone Cardiothoracic Ren[facility] [place] 04/27/2019 Orders Only Cardiothoracic Provider, Jamir Singh MD after 04/02/2019 Immunizations Name Administration Dates Next Due FLUZONE QUAD 02/17/2019 Pneumococcal, Unspecified 04/25/2017, 04/25/2016 Surgical History Surgery Date Site/Laterality Comments EYE SURGERY FRACTURE SURGERY 12/24/2018 - Hip 01/23/2019 SPINE SURGERY 05/26/2013 - 05/25/2014 CHOLECYSTECTOMY 05/26/2006 - 05/25/2007 COLONOSCOPY GALLBLADDER SURGERY 05/26/2006 - 05/25/2007 LOBECTOMY, LUNG, 06/28/2019 Chest/Right Procedure: RIGH T ROBOT-ASSISTED, ROBOT-ASSISTED, THORACOSCOPIC THORACOSCOPIC RI GHT LOWER LOBE WEDGE RESEC TION THERAPEUTIC , PERCUTANIOUS NEE DLE LOCALIZATION AND BIOPSY OF NODULE, CRYOA BLATION; Surgeon: Mamie Drummond MD; Location: [facility]; Service: oracic; Laterality: Righ t; BRONCHOSCOPY, USING 06/28/2019 Chest/N/A Procedure: F LEXIBLE ELECTROMAGNETIC [facility]; Surgeon: Madi Drummond MD; Location: [facility] OR; Service: Thoraci c; Laterality: N/A; Medical History Medical History Date Comments Arthritis Don Have had many years t remember Diverticulosis 8 years GERD (gastroesophageal reflux disease) 1 2 years Hemorrhoids Inside Hyperthyroidism Don t know Rheumatoid arthritis (HCC) Long time COPD (chronic obstructive pulmonary disease) (HCC) Lung nodule Family History Medical History Relation Name Comments Lung cancer Brother Edwin Lung cancer due tk smoking and work environment. Heart disease Father Stan Heart attack Breast cancer Mother Fern Breast cancer Breast cancer Sister Sagrario Breast cancer Breast cancer Sister Darleen Cancer Stroke Sister Tania Stroke Relation Name Status Comments Brother Edwin Father Stan Mother Fern Sister Sagrario Sister Darleen Sister Tania Social History Tobacco Use Types Packs/Day Years Used Date Former Smoker Cigarettes 0 2 Quit: 1944 Smokeless Tobacco: Never Used Comments: Smoked four years in early twe nties Alcohol Use Drinks/Week oz/Week Comments Not Currently Occasional wine. 2 to 3 glasses a month. Sex Assigned at Date Recorded Female 05/01/2019 7:52 PM PRICER Last Filed Vital Signs Vital Sign Reading Time Taken Comments Blood Pressure 136/70 07/07/2019 10:27 AM PRICER Pulse 79 07/07/2019 10:27 AM PRICER Temperature 36.6 C (97.9 F) 07/07/2019 10:27 AM PRICER Respiratory Rate 17 07/07/2019 10:27 AM PRICER Oxygen Saturation 96% 07/07/2019 10:27 AM PRICER Inhaled Oxygen Concentration - - Weight 70.3 kg (155 lb) 07/07/2019 10:27 AM PRICER Height 157.5 cm (5' 2") 07/07/2019 10:27 AM PRICER Body Mass Index 28.35 07/07/2019 10:27 AM PRICER Plan of Treatment Health Maintenance Due Date Last Done Comments SHINGLES VACCINES (#1) 1985 65+ PNEUMOCOCCAL VACCINE (1 of 1 - PPSV23) 01/21/200004/25, 04/25/2016 INFLUENZA VACCINE Completed 01/30/2020, 02/17/2019 Procedures Procedure Name Priority Date/Time Associated Diagnosis Comme nts TB T-SPOT Routine 07/07/2019 10:14 Granulomatous lung Resul ts for this AM PRICER disease (HCC) procedure are in the results section. POC GLUCOSE Routine 06/30/2019 8:20 Results for this AM PRICER procedure are i n the results section. HC COMPLETE BLD COUNT Routine 06/30/2019 6:25 Re sults for this W/AUTO DIFF AM PRICER procedure are i n the results section. ESTIMATED GFR Routine 06/30/2019 6:21 Results fo r this AM PRICER procedure are i n the results section. PHOSPHORUS LEVEL Routine 06/30/2019 6:21 Results for this AM PRICER procedure are i n the results section. MAGNESIUM LEVEL Routine 06/30/2019 6:21 Results for this AM PRICER procedure are i n the results section. BASIC METABOLIC PANEL Routine 06/30/2019 6:21 Re sults for this AM PRICER procedure are i n the results section. XR CHEST 1 VW PORTABLE Routine 06/29/2019 3:00 R esults for this PM PRICER procedure are i n the results section. XR CHEST 1 VW PORTABLE STAT 06/29/2019 11:42 R esults for this AM PRICER procedure are i n the results section. XR CHEST 1 VW PORTABLE Routine 06/29/2019 6:20 R esults for this AM PRICER procedure are i n the results section. HC COMPLETE BLD COUNT Routine 06/29/2019 5:35 Re sults for this W/AUTO DIFF AM PRICER procedure are i n the results section. ESTIMATED GFR Routine 06/29/2019 4:00 Results fo r this AM PRICER procedure are i n the results section. PHOSPHORUS LEVEL Routine 06/29/2019 4:00 Results for this AM PRICER procedure are i n the results section. MAGNESIUM LEVEL Routine 06/29/2019 4:00 Results for this AM PRICER procedure are i n the results section. BASIC METABOLIC PANEL Routine 06/29/2019 4:00 Re sults for this AM PRICER procedure are i n the results section. POC GLUCOSE Routine 06/28/2019 5:55 Results for this PM PRICER procedure are i n the results section. XR CHEST 1 VW PORTABLE STAT 06/28/2019 3:38 R esults for this PM PRICER procedure are i n the results section. SURGICAL PATHOLOGY Routine 06/28/2019 1:57 Resul ts for this REQUEST PM PRICER procedure are i n the results section. SURGICAL PATHOLOGY Routine 06/28/2019 1:57 Resul ts for this REQUEST PM PRICER procedure are i n the results section. GLUCOSE LEVEL, SYRINGE STAT 06/28/2019 1:05 R esults for this PM PRICER procedure are i n the results section. HEMOGLOBIN, SYRINGE STAT 06/28/2019 1:05 Resu lts for this PM PRICER procedure are i n the results section. IONIZED CALCIUM, STAT 06/28/2019 1:05 Results for this ARTERIAL PM PRICER procedure are i n the results section. POTASSIUM, SYRINGE STAT 06/28/2019 1:05 Resul ts for this PM PRICER procedure are i n the results section. SODIUM LEVEL, SYRINGE STAT 06/28/2019 1:05 Re sults for this PM PRICER procedure are i n the results section. ARTERIAL BLOOD GAS, STAT 06/28/2019 1:05 Resu lts for this CORRECTED PM PRICER procedure are i n the results section. OH AN ELECTIVE Routine 06/28/2019 12:55 Results f or this ENDOTRACHEAL AIRWAY PM PRICER procedur e are in the results section. FUNGUS SMEAR Routine 06/28/2019 12:00 Results for this AM PRICER procedure are i n the results section. AFB STAIN Routine 06/28/2019 12:00 Results for this AM PRICER procedure are i n the results section. FUNGUS CULTURE Routine 06/28/2019 12:00 Results f or this AM PRICER procedure are i n the results section. AFB CULTURE Routine 06/27/2019 11:00 Results for this PM PRICER procedure are i n the results section. PREPARE RBC Routine 06/17/2019 4:20 Results for this PM PRICER procedure are i n the results section. ESTIMATED GFR Routine 06/17/2019 4:20 Results fo r this PM PRICER procedure are i n the results section. TYPE AND SCREEN Routine 06/17/2019 4:20 Lung nodule Results for this PM PRICER Pre-op testing procedure are in the results section. PARTIAL THROMBOPLASTIN Routine 06/17/2019 4:20 Lung nod ule Results for this TIME (PTT) PM PRICER Pre-op testing procedure are in the results section. PROTHROMBIN TIME WITH Routine 06/17/2019 4:20 Lung nodu le Results for this INR PM PRICER Pre-op testing procedure are in the results section. COMPREHENSIVE Routine 06/17/2019 4:20 Lung nodule Results for this METABOLIC PANEL PM PRICER Pre-op testing procedure are in the results section. HC COMPLETE BLD COUNT Routine 06/17/2019 4:20 Lung nodu le Results for this W/AUTO DIFF PM PRICER Pre-op testing procedure are in the results section. SPIROMETRY, DIFFUSION, Routine 06/15/2019 5:07 Lung nodule R esults for this LUNG VOLUMES PM PRICER procedure are i n the results section. CT CHEST WO CONTRAST Routine 06/15/2019 11:27 Lung nodule Res ults for this AM PRICER procedure are i n the results section. PET CT SKULL BASE TO Routine 05/07/2019 2:32 Lung nodule Res ults for this MID THIGH PM PRICER procedure are i n the results section. POC GLUCOSE Routine 05/07/2019 12:55 Results for this PM PRICER procedure are i n the results section. CT CHEST EXTERNAL Routine 04/12/2019 9:47 Result s for this STUDY AM PRICER procedure are i n the results section. CT ANGIOGRAM PE CHEST Routine 04/12/2019 after 04/02/2019 Results TB T-SPOT (07/07/2019 10:14 AM PRICER) Pathologist Sig nature TB T-SPOT SEE NOTE [facility] REF Comment: LAB T-SPOT TUBERCULOSIS Nil Control: 0 Panel A: 1 Panel B: 3 Positive Control: SAT Result: NEGATIVE NOTE: TMTC INDICATES TOO MANY SPOTS TO COUNT SAT INDICATES THE WELL WAS SATURATED RESULTS INTERPRETATION: RESULTS ARE NEGATIVE WHEN (PANEL A-NIL) OR (PANEL B-NI L) <= 4 SPOTS, INCLUDING VALUES LESS THAN ZERO. RESULTS ARE POSITIVE WHEN (PANEL A-NIL) OR (PANEL B-NI L) >= 8 SPOTS RESULTS ARE BORDERELINE WHEN EITHER (TORREZ EL A-NIL) OR (PANEL B-NIL) = 5,6,0R 7. THE TEST IS INVALID WHEN EITHER OF THE FOLLOWING CONDI TIONS IS MET: 1.) THE NIL CONTROL HAS >10 SPOTS 2.) THE MITOGEN (POSITIVE CONTROL) HAS <20 SPOTS AND B OTH (PANEL A-NIL) AND (PANEL B-NIL) <= 4 SPOTS. M. TUBERCULOSIS INFECTION UNLIKELY, BUT CANNOT BE EXCL UDED ESPECIALLY WHEN: 1. ANY ILLNESS IS CONSISTENT WITH TB DISEASE. 2. LIKELIHOOD OF PROGRESSION TO DISEASE (e.g. DUE TO I MMUNOSUPPRESSION) IS INCREASED. LIMITATIONS: DIAGNOSING OR EXCLUDING TUBERCULOSIS DISEASE, AND ASSE SSING THE PROBABILITY OF LTBI, REQUIRES A COMBINATION OF EPIDEMIOLOGICAL, HI STORICAL, MEDICAL, AND DIAGNOSTIC FINDINGS THAT SHOULD BE TAKEN INTO ACCOUNT WHEN INTERPRETING T-SPOT.TB REFER TO THE MOST RECENT CDC GUIDANCE (HTTP: //WWW.CDC.GOV/NCHSTP/TB) FOR DETAILED RECOMMENDATIONS ABOUT DIAGNOSING TB INFECTION (INCLUDING DISEASE) AND SELECTING PERSONS FOR TESTING. 1.) A FALSE NEGATIVE RESULT CAN BE CAUSED BY INCORRECT BLOOD SAMPLE COLLECTION OR IMPROPER HANDLING OF THE S PECIMEN, AFFECTING LYMPHOCYTE FUNCTION 2.) THE PERFORMANCE OF T-SPOT.TB HAS NOT BEEN ADEQUATE LY EVALUATED WITH SPECIMENS FROM INDIVIDUALS YOUNGER THAN AGE 17 YEARS, IN WOMEN, AND IN PATIENTS WITH HEMOPHILIA. 3-) A FALSE POSITIVE RESULT WAS OBTAINED FOR T-SPOT.TB WHEN TESTED IN SUBJECTS WITH M. XENOPI, M. KANSASII, AND M. GORDONAE. WHILE ESAT-6 AND CFP-10 ANTIGENS ARE ABSENT FROM BCG STRAINS OF M. BOVIS AND FROM MOST ENVIRONMENTAL MYCOBACTERIA, IT IS POSSIBLE THAT A POSI TIVE T-SPOT.TB RESULT MAY BE DUE TO INFECTION WITH M. KANSASII, M. SZULGAI, M. GORDONAE, OR M. MARINUM. ALTERNATIVE TESTS WOULD BE REQUIRED IF THESE INFECTIONS ARE SUSPECTED. 4.) A NEGATIVE TEST RESULT DOES NOT EXCLUDE THE POSSIB ILITY OF EXPOSURE TO, OR INFECTION WITH, M. TUBERCULOSIS. PATIENTS WITH RECE NT EXPOSURE TO TB INFECTED INDIVIDUALS EXHIBITING A NEGATIVE T-SPO T.TB RESULT SHOULD BE CONSIDERED FOR RETESTING WITHIN 6 WEEKS OR I F OTHER RELEVANT CLINICAL SYMPTOMS INDICATE POSSIBLE INFECTION. 5.) A POSITIVE TEST RESULT DOES NOT RULE IN ACTIVE TB DISEASE; OTHER TESTS SHOULD BE PERFORMED TO CONFIRM THE DIAGNOSIS OF ACTIVE TB DISEASE SUCH SPUTUM SMEAR AND CULTURE, PCR AND CHEST RADIOGRAPHY. 6.) T-SPOT.TB TEST HAS NOT BEEN EVALUATED IN SUBJECTS WHO HAVE RECEIVED >1 MONTH OF ANTI-TB THERAPY. 7. ) REFRIGERATED AND FROZEN SAMPLES ARE NOT RECOMMEND ED FOR USE WITH T=SPOT.TB TEST. Performed by: [facility] Molecular Tuberculosis Laboratory [facility] ([id number]) [place], [place] [address] Specimen Blood Performing Organization Address City/State/ZIP Code Phon e Number [facility] DEPARTMENT OF PATHOLOGY AND [address] [place] [phone] [facility] POC glucose (06/30/2019 8:20 AM PRICER)Only the most recent of3 resultswithin the time period is included. Pathologist Sig nature POC glucose 71 65 - 99 mg/dL [facility] Comment: HOSPITAL Security Strategist Name: Ayde Lim Device ID: [id number] Chartable: [facility] Notified RN Specimen Performing Organization Address City/[facility] Phon e Number [facility] DEPARTMENT OF PATHOLOGY AND [address], [place] [phone] [facility] [address] [place] [address] CBC with platelet and differential (06/30/2019 6:25 AM PRICER)Only the most recent of3 resultswithin the time period is included. WBC 12.17 (H) 4.50 - 11.00 [facility]/uL HOSPITAL RBC 3.80 (L) 4.20 - 5.50 [facility] m/uL [facility] HGB 11.7 (L) 12.0 - 16.0 [facility] g/dL [facility] HCT 36.1 (L) 37.0 - 47.0 % [facility] MCV 95.0 82.0 - 100.0 [facility] MCH 30.8 27.0 - 34.0 pg [facility] MCHC 32.4 31.0 - 37.0 [facility] RDW - SD 46.7 37.0 - 55.0 fL [facility] MPV 11.0 8.8 - 13.2 fL [facility] Platelet count 252 150 - 400 k/uL [facility] Nucleated RBC 0.00 /100 WBC [facility] Neutrophils 68.4 39.0 - 69.0 % [facility] Lymphocytes 18.2 (L) 25.0 - 45.0 % [facility] Monocytes 9.0 0.0 - 10.0 % [facility] Eosinophils 3.5 0.0 - 5.0 % [facility] Basophils 0.4 0.0 - 1.0 % [facility] Immature granulocytes 0.5Comment: 0.0 - 1.0 % [facility] "Immature HOSPITAL granulocytes" (promyelocytes , myelocytes, metamyelocytes ) Specimen Blood Performing Organization Address City/[facility]/ZIP Code Phon e Number [facility] DEPARTMENT OF PATHOLOGY AND [address] [place] [address] [phone] [address] Estimated GFR (06/30/2019 6:21 AM PRICER)Only the most recent of3 resultswithin the time period is included. Estimated GFR 81 mL/min/1.73 [facility] Comment: m2 HOSPITAL Catergory Units Interpretation G1 >=90 Normal or high G2 60-89 Mildly decreased G3a 45-59 Mildly to moderately decreas ed G3b 30-44 Moderately to severely decre ased G4 15-29 Severely decreased G5 <15 Kidney failure The eGFR was calculated using the Chronic Kidney Disea se Epidemiology Collaboration (CKD-EPI) equation. Interpretation is based on recommendations of the National Kidney Foundation-Kidney Disease Outcomes Navin lity Initiative (NKF-KDOQI) published in 2014. Specimen Plasma specimen Performing Organization Address City/[facility] Phon e Number [facility] DEPARTMENT OF PATHOLOGY AND [address] [place] [phone] Phosphorus level (06/30/2019 6:21 AM PRICER)Only the most recent of2 resultswithin the time period is included. Pathologist Sig nature Phosphorus 2.4 2.4 - 4.5 mg/dL [facility] L Specimen Plasma specimen Performing Organization Address City/[facility] Phon e Number [facility] DEPARTMENT OF PATHOLOGY AND [address] [place] [address] [phone] [address] Magnesium level (06/30/2019 6:21 AM PRICER)Only the most recent of2 resultswithin the time period is included. Pathologist Sig nature Magnesium 1.9 1.6 - 2.4 mg/dL [facility] Specimen Plasma specimen Performing Organization Address [facility] Phon e Number [facility] DEPARTMENT OF PATHOLOGY AND [address] [place] [address] [address] Basic metabolic panel (06/30/2019 6:21 AM PRICER)Only the most recent of2 results within the time period is included. Pathologist Sig nature Sodium 138 135 - 148 mEq/L [facility] Potassium 3.8 3.5 - 5.0 mEq/L [facility] Chloride 103 98 - 112 mEq/L [facility] CO2 28 24 - 31 mEq/L [facility] Anion gap 7@ANIO 7 - 15 mEq/L [facility] BUN 10 8 - 23 mg/dL [facility] Creatinine 0.66 0.50 - 0.90 mg/dL [facility] Glucose 94 65 - 99 mg/dL [facility] Calcium 8.7 (L) 8.8 - 10.2 mg/dL [facility] Specimen Plasma specimen Performing Organization Address City/[facility]/ZIP Code Phon e Number [facility] DEPARTMENT OF PATHOLOGY AND [address] [place], [place] [phone] GENOMIC MEDICINE [facility] [address] [place] [address] XR Chest 1 Vw Portable (06/29/2019 3:00 PM PRICER)Only the most recent of4 results within the time period is included. Specimen Narrative Performed At [facility] Clinical History: Follow-up pneumothorax . Technique: Single, portable AP view ches t. Comparison: 06/29/2019 Impression: 1.A right pneumothorax is stable to improved relative to 1141 hours given differences in technique, with an air gap of 0.9 cm (previously 1.4 cm) 2.No pleural effusions or pneumothorax. 3.Normal heart size and mediastinal cont our for technique. 4.Normal pulmonary vasculature. 5.Slightly increased right chest wall subcutaneous emp hysema. Intact skeleton. 6.Partially imaged cervical fusion hardw are. Procedure Note Interface, Radiology Results Incoming - 06/29/2019 3:32 PM PRICER SINGLE VIEW CHEST, 06/29/2019 Clinical History: Follow-up pneumothorax . Technique: Single, portable AP view ches t. Comparison: 06/29/2019 Impression: 1.A right pneumothorax is stable to impr deann relative to 1141 hours given differences in technique, with an air gap of 0.9 cm (previously 1.4 cm) 2.No pleural effusions or pneumothorax. 3.Normal heart size and mediastinal cont our for technique. 4.Normal pulmonary vasculature. 5.Slightly increased right chest wall banerjee bcutaneous emphysema. Intact skeleton. 6.Partially imaged cervical fusion hardw are. Performing Organization Address City/State/ZIP Code Phon e Number [facility] [address] [place] [phone] Surgical pathology request (06/28/2019 1:57 PM PRICER)Only the most recent of2 resultswithin the time period is included. [facility] DEPARTMENT OF PATHOLOGY AND GENOMIC MEDICINE Surgical pathology See link below for [facility] DEPARTMENT O F report PDF Lab Report PATHOLOGY AND GENOMIC MEDICINE Result status This is Supplemental [facility] DEPARTMENT OF Report for PATHOLOGY AND [id number] GENOMIC MEDICINE Specimen Performing Organization Address City/[facility]/ZIP Code Phon e Number [facility] DEPARTMENT OF PATHOLOGY AND [address] [place] [phone] [facility] Sodium level, syringe (06/28/2019 1:05 PM PRICER) Pathologist Sig nature Sodium, syringe 138 135 - 148 mEq/L [facility] Specimen Blood Performing Organization Address City/[facility] Phon e Number [facility] DEPARTMENT OF PATHOLOGY AND [address] [place] [address] [phone] [address] Potassium, syringe (06/28/2019 1:05 PM PRICER) Pathologist Sig nature Potassium, syringe 3.6 3.5 - 5.0 mEq/L [facility] Specimen Blood Performing Organization Address [facility] Phon e Number [facility] DEPARTMENT OF PATHOLOGY AND [address] [place] [address] [phone] [address] Ionized calcium, arterial (06/28/2019 1:05 PM PRICER) Pathologist Sig nature Ionized calcium, 1.02 (L) 1.11 - 1.32 [facility] arterial mmol/L [facility] Specimen Blood Performing Organization Address City/[facility]/ZIP Code Phon e Number [facility] DEPARTMENT OF PATHOLOGY AND [address] [place] [address] [phone] [address] Hemoglobin, syringe (06/28/2019 1:05 PM PRICER) Pathologist Sig nature Hemoglobin, syringe 11.9 (L) 12.0 - 16.0 g/dL [facility] Specimen Blood Performing Organization Address City/[facility]/ZIP Code Phon e Number [facility] DEPARTMENT OF PATHOLOGY AND [address] [place] [address] [phone] [facility] [address] [place] [phone] Glucose level, syringe (06/28/2019 1:05 PM PRICER) Pathologist Sig nature Glucose, syringe 102 (H) 65 - 99 mg/dL [facility] Specimen Blood Performing Organization Address City/[facility] Phon e Number [facility] DEPARTMENT OF PATHOLOGY AND [address] [place] [address] [phone] [address] Arterial blood gas, corrected (06/28/2019 1:05 PM PRICER) Pathologist Sig nature pH, arterial 7.46 (H) 7.35 - 7.45 [facility] pCO2, arterial 35 35 - 45 mmHg [facility] pO2, arterial 306 (H) 80 - 90 mmHg [facility] Temperature, Celsius 35.9 Degrees C [facility] O2 saturation, 100 95 - 100 % [facility] arterial HOSPITAL pH, arterial 7.47 [facility] corrected HOSPITAL pCO2, arterial 33 mmHg [facility] corrected HOSPITAL pO2, arterial 301 mmHg [facility] HOSPITAL Base excess, arterial 1 -2 - 2 mEq/L [facility] Specimen Blood Performing Organization Address City/[facility] Phon e Number [facility] DEPARTMENT OF PATHOLOGY AND [address] [place] [address] [phone] [address] Airway (06/28/2019 12:55 PM PRICER) Narrative Performed At Trice Moseley 06/28/2019 12:57 PM Airway Date/Time: 06/28/2019 12:18 PM Performed by: Jh Boone MD Authorized by: Jh Boone MD Location: OR Urgency: Elective Difficult Airway: No Preoxygenated with 100% O2: Yes Mask Ventilation: Assisted mask Final Airway Type: Endotracheal airway Final Endotracheal Airway: ETT - doubl e lumen left Cuffed: Yes Technique Used: Video laryngoscopy Devices/Methods Used in Placement: Int ubating stylet and fiberoptic Insertion Site: Oral Blade Type: Watson (S3) Laryngoscope Blade/Videolaryngoscope Rachid de Size: 3 ETT Double Lumen (fr): 37 Cuff at minimum occlusion pressure: Yes Measured from: Lips ETT to Lips (cm): 31 Placement Verified by: CO2 detection, direct visualiza tion and fiber optic visualization Laryngoscopic view: Grade I - full vie w of glottis Rapid Sequence Induction (RSI): No Modified RSI: No Number of Attempts at Approach: 1 Eyes taped; Glidescope S3 blade used; KENDAL placed with use of fiberoptic scope Fungus smear (06/28/2019 12:00 AM PRICER) Pathologist Sig nature Fungus smear No fungi observed. DAMION RUVALCABA Comment: HOSPITAL Specimen Information Specimen Source: Tissue Specimen Site: Lung , RIGHT LOWER LOBE Specimen Tissue Performing Organization Address [facility] Phon e Number [facility] DEPARTMENT OF PATHOLOGY AND [address] [place] [address] [address] AFB stain (06/28/2019 12:00 AM PRICER) Pathologist Sig nature AFB stain No acid fast bacilli (AFB) seen. DAMION RUVALCABA Comment: HOSPITAL Specimen Information Specimen Source: Tissue Specimen Site: Lung , RIGHT LOWER LOBE Specimen Tissue Performing Organization Address [facility] Phon e Number [facility] DEPARTMENT OF PATHOLOGY AND [address] [place] [address] [phone] [address] Fungus culture (06/28/2019 12:00 AM PRICER) Fungus culture No growth after 4 weeks of incubation. DAMION RUVALCABA isolate Comment: HOSPITAL Specimen Information Specimen Source: Tissue Specimen Site: Lung , RIGHT LOWER LOBE Specimen Tissue Performing Organization Address City/[facility] Phon e Number [facility] DEPARTMENT OF PATHOLOGY AND [address] [place] [address] [phone] [address] AFB culture (06/27/2019 11:00 PM PRICER) AFB culture No growth after 6 weeks of incubation. KALIE RUVALCABA isolate Comment: HOSPITAL Specimen Information Specimen Source: Tissue Specimen Site: Lung , RIGHT LOWER LOBE Specimen Tissue Performing Organization Address [facility] Phon e Number [facility] DEPARTMENT OF PATHOLOGY AND [address] [place] [address] [phone] [address] Partial thromboplastin time, activated (06/17/2019 4:20 PM PRICER) Pathologist [facility] PTT 25.8 23.0 - 36.0 [facility] Comment: [facility] PTT therapeutic range for unfractionated heparin is 61.0-112.0 seconds which corresponds to Anti-Xa 0.3-0.7 U/ml. Specimen Blood Performing Organization Address City/[facility] Phon e Number [facility] DEPARTMENT OF PATHOLOGY AND [address] [place] [address] [phone] [address] Prothrombin time with INR (06/17/2019 4:20 PM PRICER) Pathologist [facility] Prothrombin time 12.4 11.5 - 14.5 [facility] INR 0.9 [place] Comment: BUDDHIST [facility] International Normalized Ratio (INR) is a [facility] monitoring tool for patients who are stable on oral anticoagulant therapy. An INR of 2.0-3.0 is suggested for deep vein thrombosis/pulmonary embolism. Specimen Blood Performing Organization Address [facility] Phon e Number [facility] DEPARTMENT OF PATHOLOGY AND [address] [place] [address] [phone] [address] Prepare RBC (06/17/2019 4:20 PM PRICER) Pathologist [facility] Product name Red Blood Cells [place] [address], [facility] Unit number [id number] [facility] Product code [id number] [facility] Dispense status Returned to BB not [facility] Blood expiration date [facility] Blood type code 8400 [facility] Blood type AB POSITIVE [facility] Compatibility Compatible [facility] Product name Red Blood Cells [place] [address], [facility] Unit number [id number] [facility] Product code [id number] [facility] Dispense status Returned to BB not [facility] Blood expiration date [facility] Blood type code 8400 [facility] Blood type AB POSITIVE [facility] Compatibility Compatible [facility] Specimen Performing Organization Address City/[facility] Phon e Number [facility] DEPARTMENT OF PATHOLOGY AND [address] [place] [address] [phone] [address] Type and screen (06/17/2019 4:20 PM PRICER) Pathologist Sig nature ABO grouping AB [facility] Rh type POS [facility] Antibody screen (gel) NEG [facility] Specimen Blood Performing Organization Address [facility] Phon e Number [facility] DEPARTMENT OF PATHOLOGY AND [address] [place] [address] [phone] [address] Comprehensive metabolic panel (06/17/2019 4:20 PM PRICER) Sodium 139 135 - 148 [facility] mEq/L [facility] Potassium 4.2 3.5 - 5.0 [facility] mEq/L [facility] Chloride 99 98 - 112 mEq/L [facility] CO2 30 24 - 31 mEq/L [facility] Anion gap 10@ANIO 7 - 15 mEq/L [facility] BUN 14 8 - 23 mg/dL [facility] Creatinine 0.58 0.50 - 0.90 [facility] mg/dL [facility] Glucose 98 65 - 99 mg/dL [facility] Calcium 9.8 8.8 - 10.2 [facility] mg/dL [facility] Protein 7.8 6.3 - 8.3 g/dL [facility] Comment: HOSPITAL Cmawkww0582.6-7.0 g/dL 1 nxmd1345.4-7.6 g/dL 7 months-9eqso316.1-7.3 g/dL 1-2 cbtqa657.6-7.5 g/dL >3 .0-8.0 g/dL 18-5563397.3-8.3 g/dL Albumin 3.8 3.5 - 5.0 g/dL [facility] A/G ratio 1.0 0.7 - 3.8 [facility] Alkaline phosphatase 109 (H) 35 - 104 U/L [facility] AST 26 10 - 35 U/L [facility] ALT 24 5 - 50 U/L [facility] Total bilirubin 0.3 0.0 - 1.2 [facility] mg/dL HOSPITAL Specimen Plasma specimen Performing Organization Address [facility] Phon e Number [facility] DEPARTMENT OF PATHOLOGY AND [address] [place] [address] [phone] [facility] [address] [place] [address] Spirometry, diffusion, lung volumes (06/15/2019 5:07 PM PRICER) Pathologist Sig nature FEV1 Pre 2.15 L [facility] FEV1/FVC % Pre 84.17 % [facility] FVC Pre 2.56 L [facility] PEF Pre 6.82 L/s [facility] FEF 25-75% Pre 2.81 L/s [facility] DLCO Pre 17.25 ml/(min*mmHg) [facility] DL/VA Pre 4.32 ml/(min*mmHg*L) [facility] VA SB Pre 3.99 L [facility] DLCOc Pre 17.25 ml/(min*mmHg) [facility] KCOc SB Pre 4.32 ml/(min*mmHg*L) [facility] Hb Pre 13.40 g(Hb)/dL [facility] R0.5IN Pre 1.49 3.06 - 3.06 [facility] cmH2O*s/L FRCpl Pre 2.58 1.79 - 3.43 L [facility] RV Pre 2.32 1.62 - 2.77 L [facility] TLC Pre 4.94 3.62 - 5.59 L [facility] RV % TLC Pre 46.94 37.93 - 57.11 % [facility] VC Pre 2.62 1.54 - 2.84 L [facility] ERV Pre 0.26 0.42 - 0.42 L [facility] IC Pre 2.36 1.63 - 1.63 L [facility] sR0.5IN Pre 4.50 cmH2O*s [facility] Raw Pre 2.71 3.06 - 3.06 [facility] cmH2O*s/L sGaw Predicted 0.12 0.10 - 0.10 [facility] 1/(cmH2O*s) FEV1 Predicted 1.61 [facility] FEV1 LLN 1.06 [facility] FEV1 % Pre of Predicted 133.4 % [facility] FVC Predicted 2.19 [facility] FVC LLN 1.54 [facility] FVC % Pre of Predicted 116.5 % [facility] FEV1/FVC % Predicted 73 [facility] FEV1/FVC % LLN 63 [facility] FEV1/FVC % Pre of 115.4 % [facility] Predicted FEF 25-75% Predicted 1.09 [facility] FEF 25-75% LLN -0.07 [facility] FEF 25-75% % Pre of 257.9 % [facility] Predicted PEF Predicted 4.09 [facility] PEF LLN 2.49 [facility] PEF % Pre of Predicted 166.6 % [facility] VC Predicted 2.19 [facility] VC LLN 1.54 [facility] VC % Pre of Predicted 119.5 % [facility] ERV Predicted 0.42 [facility] ERV LLN 0.42 [facility] ERV % Pre of Predicted 62.3 % [facility] FRCpl % Predicted 2.61 [facility] FRCpl % LLN 1.79 [facility] FRCpl % Pre of Predicted 98.8 % [facility] IC Predicted 1.63 [facility] IC LLN 1.63 [facility] IC % Pre of Predicted 145.3 % [facility] RV Predicted 2.19 [facility] RV LLN 1.62 [facility] RV % Pre of Predicted 105.7 % [facility] RV % TLC Predicted 48 [facility] RV % TLC LLN 38 [facility] RV % TLC % Pre of 98.8 % [facility] Predicted TLC Predicted 4.60 [facility] TLC LLN 3.62 [facility] TLC % Pre of Predicted 107.3 % [facility] Raw Predicted 3.06 [facility] Raw LLN 3.06 [facility] Raw % Pre of Predicted 88.6 % [facility] R0.5IN Predicted 3.06 [facility] R0.5IN LLN 3.06 [facility] R0.5IN % Pre of 48.7 % [facility] Predicted sGaw Predicted 0.10 [facility] sGaw LLN 0.10 [facility] sGaw % Pre of Predicted 119.7 % [facility] DLCO Predicted 18.13 [facility] DLCO LLN 11.63 [facility] DLCO % Pre of Predicted 95.1 % [facility] DLCOc Predicted 18.13 [facility] DLCOc LLN 11.63 [facility] DLCOc % Pre of Predicted 95.1 % [facility] DL/VA Predicted 4.16 [facility] DL/VA LLN 2.84 [facility] DL/VA % Pre of Predicted 103.8 % [facility] KCOc SB Predicted 4.16 [facility] KCOc SB LLN 2.84 [facility] KCOc SB % Pre of 103.8 % [facility] Predicted VA SB Predicted 4.73 [facility] VA SB LLN 3.63 [facility] VA SB % Pre of Predicted 84.4 % [facility] Specimen Narrative Performed At This result has an attachment that is no t available. Performing Organization Address City/State/ZIP Code Phon e Number [facility] [address] [place] [address] CT Chest Wo Contrast (06/15/2019 11:27 AM PRICER) Specimen Narrative Performed At EXAMINATION: CT CHEST WO CONTRAST [facility] CLINICAL HISTORY: R91.1 Solitary pulmona ry nodule, lung nodule TECHNIQUE: Axial images of the chest were obtained w ithout intravenous contrast. The lack of intravenous contrast reduces the sensitivity of the exam and evaluating vasculature. CT imaging was pe rformed with iterative reconstruction technique and/o r automated exposure control to reduce rad iation dose. COMPARISON: 04/12/2019. PET/CT 019 FINDINGS: Lungs and airways: Right lower lobe lobulated pulmonar y nodule currently measures 6 x 8 mm, unchanged since 04/12/2019. A 2-3 m m nodule in the right lower lobe on image 102 of series 3 is slightly better seen due to less motion artifact on the current examination, but is unchanged. A few additional tiny n odules, for example 2 mm nodule in the medial left apex (image 35) , are also unchanged. There are no new suspicious pulmonary nodul es. No acute airspace disease. Pleura: No pleural effusion or pneumotho rax. Mediastinum and lymph nodes: No lymphade nopathy. Cardiovascular: Mild coronary artery and additional sc attered vascular calcifications are present. Upper abdomen: A few calcified splenic and hepatic gra nulomas are present. Prior cholecystectomy. Musculoskeletal: Partially visualized cervical spine f usion hardware is in place. Scattered degenerative osseous changes are p resent. Demineralized bones. There is partially visualized lum bar spine fusion hardware in unchanged configuration comp ared recent PET/CT. IMPRESSION: 1.A lobulated 6 x 8 mm nodule in the right lower lobe is unchanged since at least 04/12/2019 and remains indeterminate. Leading considerations include granuloma and indolent neoplasm. 2.Additional tiny pulmonary nodules are also unchanged and technically indeterminate, favor combination of benign granulomas and intrapulmonary lymph nodes. [id number] Procedure Note Hm Interface, Radiology Results Incoming - 06/15/2019 12:40 PM PRICER EXAMINATION: CT CHEST WO CONTRAST CLINICAL HISTORY: R91.1 Solitary pulmona ry nodule, lung nodule TECHNIQUE: Axial images of the chest we re obtained without intravenous contrast. The lack of intravenous contrast reduces the sensitivity of the exam and evaluating vasculature. CT imaging was performed with iterative reconstruction technique and/or automated exposure control to reduce rad iation dose. COMPARISON: 04/12/2019. PET/CT 05/07/20 19 FINDINGS: Lungs and airways: Right lower lobe lobu lated pulmonary nodule currently measures 6 x 8 mm, unchanged since 04/12/2019. A 2-3 mm nodule in the right lower lobe on image 102 of series 3 is slightly better seen due to less motion artifact on the current examination, but is unchanged. A few add itional tiny nodules, for example 2 mm nodule in the medial left apex (image 35), are also unchanged. There are no new suspicious pulmonary nodules. No acute airspace disease. Pleura: No pleural effusion or pneumotho rax. Mediastinum and lymph nodes: No lymphade nopathy. Cardiovascular: Mild coronary artery and additional scattered vascular calcifications are present. Upper abdomen: A few calcified splenic a nd hepatic granulomas are present. Prior cholecystectomy. Musculoskeletal: Partially visualized ce rvical spine fusion hardware is in place. Scattered degenerative osseous changes are present. Demineralized bones. There is partially visualized lumbar spine fusion hardware in unchanged configuration compared recent PET/CT. IMPRESSION: 1.A lobulated 6 x 8 mm nodule in the rig ht lower lobe is unchanged since at least 04/12/2019 and remains indeterminate. Leading considerations include granuloma and indolent neoplasm. 2.Additional tiny pulmonary nodules are also unchanged and technically indeterminate, favor combination of benign granulomas and intrapulmonary lymph nodes. [id number] Performing Organization Address City/State/ZIP Code Phon e Number [facility] [address] [facility] [place] [address] PET/CT Skull Base To Mid Thigh (05/07/2019 2:32 PM PRICER) Specimen Narrative Performed At PROCEDURE: PET CT SKULL BASE TO MID [facility] INDICATION: Evaluate lung nodule. In itial treatment strategy. TECHNIQUE: Blood glucose measured at the time of inj ection was 85 mg/dL. The patient was then injected with 11.4 mCi of 18F-FDG, IV. Approximately one hour later, PET images were acquir ed from the skull base to the mid thighs. Corresponding, l ow dose, non-contrast CT scanning was performed as part of the attenuation correction process. Automated dose exp osure control was utilized. COMPARISON: Outside chest CT 04/12/2019, showing a 7 mm right lower lobe nodule. FINDINGS: Head and neck: No suspicious brain uptake. Normal uptake in the visualized sinuses, orbits, nasopharynx, and oropharyn x. Uptake by the larynx is normal. No suspicious neck l ymph node uptake. Chest: No abnormal mediastinal, hilar, or axillary l ymph node uptake. No suspicious pulmonary uptake. Previously describ ed right lower lobe nodule is unchanged in size and is without abnormal uptake. Abdomen: Normal uptake in the stomach, spleen, pancr eas, liver, and adrenal glands. No abnormal retroperitoneal or mesen teric lymph node uptake. Pelvis: Physiologic bowel uptake. No abnormal pelv ic sidewall or inguinal lymph node uptake. Review of the osseous structures demonstrates no suspi cious uptake. 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 IMPRESSION: 1. Probable benign right lower lobe pulmonary nodule . Follow-up chest CT is recommended to confirm stability or resolu tion, as not all malignancies concentrate FDG. [id number] Procedure Note [facility], Radiology Results Incoming - 05/07/2019 3:23 PM PRICER PROCEDURE: PET CT SKULL BASE TO MID THIGH INDICATION: Evaluate lung nodule. Init ial treatment strategy. TECHNIQUE: Blood glucose measured at th e time of injection was 85 mg/dL. The patient was then injected with 11.4 mCi of 18F-FDG, IV. Approximately one hour later, PET images were acquired from the skull base to the mid thighs. Corresponding, low dose, non-contrast CT scanning was performed a s part of the attenuation correction process. Automated dose exposure control was utilized. COMPARISON: Outside chest CT 04/12/2019 , showing a 7 mm right lower lobe nodule. FINDINGS: Head and neck: No suspicious brain upta ke. Normal uptake in the visualized sinuses, orbits, nasopharynx, and oropharynx. Uptake by the larynx is normal. No suspicious neck lymph node uptake. Chest: No abnormal mediastinal, hilar, or axillary lymph node uptake. No suspicious pulmonary uptake. Previously described right lower lobe nodule is unchanged in size and is without abnormal uptake. Abdomen: Normal uptake in the stomach, spleen, pancreas, liver, and adrenal glands. No abnormal retroperitoneal or mesenteric lymph node uptake. Pelvis: Physiologic bowel uptake. No a bnormal pelvic sidewall or inguinal lymph node uptake. Review of the osseous structures demonst rates no suspicious uptake. 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 IMPRESSION: 1. Probable benign right lower lobe pul monary nodule. Follow-up chest CT is recommended to confirm stability or resolution, as not all malignancies concentrate FDG. [id number] Performing Organization Address City/[facility]/ZIP Code Phon e Number [facility] [address] [place] [address] CT Chest External Study (04/12/2019 9:47 AM PRICER) Specimen Narrative Performed At This exam was not acquired at a Methodis t facility and has not been [facility] interpreted by a [employer] Provider. T he exam was imported into our imaging system. Performing Organization Address [facility] Phon e Number [facility] [address] [place] [address] CT Angiogram Pe Chest (04/12/2019) Narrative Performed At This result has an attachment that is no t available. after 04/02/2019 Insurance Payer Benefit Plan / Subscriber ID Effective Phone Address T ype Group Dates MEDICARE MEDICARE PART [id number] 1999-[place], [place] Medicare A AND B nt [employer] OF [employer] [id number] 2012-[facility] tavo GARCIA nt
--- OUTSIDE RECORDS SUMMARY | 2020-04-02 14:47 | XMS REPORT | Continuity of Care Document ---
:1935 Author Organization [facility] t Address [address] [place] [address] Care Team Providers Name Role Phone Juwan WATT Primary Care Physician Cornelius Drummond MD Attending Clinician Anisha Mcgrath NP Attending Clinician Jovanny CHUNG Attending Clinician Unavailable Angel SALVADOR Attending Clinician Unavailable Renée Bryant MD Attending Clinician Pradip Attending Clinician Lesley CHUNG Attending Clinician Unavailable Renetta CHUNG Attending Clinician Unavailable Provider Attending Clinician HODA Admitting Clinician Unavailable Payers Payer Name Policy Type Policy Effective Date Expiration Date Sour ce Number MEDICAREMEDICARE PART [id number] 1999 Ho sylvia A AND 00:00:00 Rastafari [id number] 1999- [place], [place] [place] MUTUAL OF OMAHAMUTUAL [id number] 2012 Adia ston OF 00:00:00 Rastafari [id number] 3-PresentCommercial Problems Condition Condition Condition Status Onset Resolution Last Treating Co mments Source Name Details Category Date Date Treatment Clinician Date 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 00:00: st 00 Allergies, Adverse Reactions, Alerts Allergy Allergy Status Severity Reaction(s) Onset Inactive Treating Comm ents Source Name Type Date Date Clinician Penicill Propensi Active Rash 2018-05 [place] ins ty to 2-10 Methodi adverse 00:00: st reaction 00 s to drug Family History Family Member Diagnosis Comments Start Date Stop Date Source Natural brother Lung cancer Cardona Rastafari Natural father Heart disease Cardona Rastafari Natural mother Breast cancer [facility] Rastafari Natural sister Breast cancer Cardona Rastafari Natural sister Stroke [facility] thodist Social History Social Habit Start Date Stop Date Quantity Comments Source History of Current smoker [facility]odist tobacco use Sex Assigned At F [facility] ethodist Tobacco use and 2019-08-05 2019-08-05 Never used [facility] ethodist exposure 00:00:00 00:00:00 Alcohol intake 2019-08-05 2019-08-05 Ex-drinker [facility] thodist 00:00:00 00:00:00 (finding) Tobacco Comment 2019-05-04 2019-05-04 Smoked four years [facility] Rastafari 00:00:00 00:00:00 in early twenties Alcohol Comment 2019-05-04 2019-05-04 Occasional wine. 2 [place] Rastafari 00:00:00 00:00:00 to 3 glasses a month. Smoking Status Start Date Stop Date Source Former smoker 2019-08-05 00:00:00 2019-08-05 00:00:00 Cardona Rastafari Medications Ordered Filled Start Stop Current Ordering Indication Dosage Frequency Signature Comments Components Source Medication Medication Date Date Medication? Clinician (SIG) Name Name magnesium 2020-0 Yes [facility] oxide -12 Methodi (MAG-OX) 10:33: st 400 mg 37 (241.3 mg magnesium) tablet aspirin 2020-0 Yes 81mg QD Take 81 mg [place] (ECOTRIN) 2-12 by mouth Method i 81 MG 10:33: daily. st enteric 37 coated tablet cholecalcif 2020-0 Yes Take by Adia urena romain, 2-12 mouth. [facility] vitamin D3, 10:33: st (VITAMIN D3 37 ORAL) Bifidobacte 2020-0 Yes Take by Adia urena rium 2-12 mouth. [facility] infantis 10:33: st (ALIGN 37 ORAL) multivitami 2020-0 Yes 1{tbl} QD Take 1 [facility] jose n with 2-12 tablet by [facility] minerals 10:33: mouth st tablet 37 daily. traMADol 2020-0 2020- No acute pain 50mg Q6H Take 1 Cardona (ULTRAM) 50 2-06 02-13 tablet (50 M ethodi mg tablet 00:00: 23:59 mg total) st 00 :00 by mouth every 6 (six) hours as needed for moderate pain for up to 7 days .acute pain. acetaminoph 2019- No 1000mg Q8H Take 2 [place] en 2-05 02-10 tablets [facility] (TYLENOL) 00:00: 23:59 (1,[address] 500 MG 00 :00 total) by tablet mouth every 8 (eight) hours for 5 days. famotidine Yes Cardona (PEPCID) 40 1-16 Method[facility] MG tablet 00:00: st 00 torsemide 2018-05 Yes Cardona (DEMADEX) 2-07 Method[facility] 10 MG 00:00: st tablet 00 traMADol ER 2018-05- No 200mg QD Take 200 Cardona (ULTRAM-ER) 1-18 02-06 mg by Method i 100 mg 24 00:00: 00:[address] hr tablet 00 :00 daily. ranitidine 2018-05- No 150mg Q.5D Take 150 H ouayanna (ZANTAC) 1-14 01-21 mg by Methodi 150 MG 00:00: 00:[address] tablet 00 :00 (two) times a day before meals. levothyroxi 2018-05 Yes 75ug QD Take 75 Adia ston ne 1-11 mcg by Methodi (SYNTHROID) 00:00: mouth st 75 mcg 00 every tablet morning. KLOR-CON 10 2018-05 Yes 10meq Take 10 [place] 10 mEq CR 1-10 mEq by [facility] tablet 00:00: mouth. st 00 Immunizations Ordered Immunization Filled Immunization Date Status Commen ts Source Name Name FLUZONE QUAD 2019-02-17 Completed [facility] 00:00:00 Rastafari Pneumococcal, 2017-04-25 Completed [facility] Unspecified 00:00:00 Rastafari Pneumococcal, 2016-04-25 Completed [facility] Unspecified 00:00:00 Rastafari Vital Signs Vital Name Observation Time Observation Value Comments Source Systolic blood 2019-07-07 10:27:00 136 mm[Hg] Leo n Rastafari pressure Diastolic blood 2019-07-07 10:27:00 70 mm[Hg] Huong on Rastafari pressure Heart rate 2019-07-07 10:27:00 79 /min Cardona Rastafari Body temperature 2019-07-07 10:27:00 36.61 Michelle [place] Rastafari Respiratory rate 2019-07-07 10:27:00 17 /min Gera Vicente Body height 2019-07-07 10:27:00 157.5 cm Brendan Vicente Body weight 2019-07-07 10:27:00 70.308 kg Brendan Vicente BMI 2019-07-07 10:27:00 28.35 kg/m2 Brendan Vicente Oxygen saturation in 2019-07-07 10:27:00 96 /min Brendan Vicente Arterial blood by Pulse oximetry Procedures Procedure Date / Time Performing Clinician Source Performed TB T-SPOT 2019-07-07 10:14:00 Mihaela Mcgrath M. POC GLUCOSE 2019-06-30 08:20:00 Madi Drummond Cornelius Cardona Meth odist HC COMPLETE BLD COUNT 2019-06-30 06:25:00 Hoda Madi paul Rastafari W/AUTO DIFF BASIC METABOLIC PANEL 2019-06-30 06:21:00 Madi Drummond Rastafari MAGNESIUM LEVEL 2019-06-30 06:21:00 Hoda Madi Cornelius Cardona Meth odist PHOSPHORUS LEVEL 2019-06-30 06:21:00 Madi Drummond Met hodist ESTIMATED GFR 2019-06-30 06:21:00 HodaMadi Cornelius Cardona Meth odist XR CHEST 1 VW PORTABLE 2019-06-29 15:00:00 Coco Schneider on Rastafari XR CHEST 1 VW PORTABLE 2019-06-29 11:42:00 Coco Schneider on Rastafari XR CHEST 1 VW PORTABLE 2019-06-29 06:20:00 Grover [place] HC COMPLETE BLD COUNT 2019-06-29 05:35:00 Grover [place] Rastafari W/AUTO DIFF BASIC METABOLIC PANEL 2019-06-29 04:00:00 Grover [place] Rastafari MAGNESIUM LEVEL 2019-06-29 04:00:00 Grover [place] Rastafari PHOSPHORUS LEVEL 2019-06-29 04:00:00 [place]ver [place] on Rastafari ESTIMATED GFR 2019-06-29 04:00:00 Madi Drummond Meth odist POC GLUCOSE 2019-06-28 17:55:00 Madi Drummond Meth odist XR CHEST 1 VW PORTABLE 2019-06-28 15:38:00 NathalyelizabethsaraalexGrover Brendan Vicente SURGICAL PATHOLOGY REQUEST 2019-06-28 13:57:00 Madi Drummond Cornelius Vicente ARTERIAL BLOOD GAS, 2019-06-28 13:05:00 Madi Drummond Cornelius Vicente CORRECTED SODIUM LEVEL, SYRINGE 2019-06-28 13:05:00 Madi Drummond Cornelius Vicente POTASSIUM, SYRINGE 2019-06-28 13:05:00 Madi Drummond Cornelius Balderas ethodist IONIZED CALCIUM, ARTERIAL 2019-06-28 13:05:00 Madi Drummond Cornelius Vicente HEMOGLOBIN, SYRINGE 2019-06-28 13:05:00 Madi Drummond Cornelius Vicente GLUCOSE LEVEL, SYRINGE 2019-06-28 13:05:00 Madi Drummond on Rastafari NH AN ELECTIVE 2019-06-28 12:55:57 Jh Boone ENDOTRACHEAL AIRWAY FUNGUS CULTURE 2019-06-28 00:00:00 Madi Drummond Cornelius Flowers odist AFB STAIN 2019-06-28 00:00:00 Madi Drummond Cornelius Flowers odist FUNGUS SMEAR 2019-06-28 00:00:00 Madi Drummond Cornelius Flowers odist AFB CULTURE 2019-06-27 23:00:00 Hoda Madi byers HC COMPLETE BLD COUNT 2019-06-17 16:20:00 Madi Drummond W/AUTO DIFF COMPREHENSIVE METABOLIC 2019-06-17 16:20:00 Madi Drummond Rastafari PANEL PROTHROMBIN TIME WITH INR 2019-06-17 16:20:00 Madi Drummond PARTIAL THROMBOPLASTIN 2019-06-17 16:20:00 Madi Drummond Rastafari TIME (PTT) TYPE AND SCREEN 2019-06-17 16:20:00 Madi Drummond ESTIMATED GFR 2019-06-17 16:20:00 Madi Drummond PREPARE RBC 2019-06-17 16:20:00 Madi Drummond SPIROMETRY, DIFFUSION, 2019-06-15 17:07:25 Madi Drummond on Rastafari LUNG VOLUMES CT CHEST WO CONTRAST 2019-06-15 11:27:[address] SKULL BASE TO MID 2019-05-07 14:32:56 Madi Drummond Rastafari THIGH POC GLUCOSE 2019-05-07 12:55:[address] CHEST EXTERNAL STUDY 2019-04-12 09:47:[address] ANGIOGRAM PE CHEST 2019-04-12 00:00:00 Provider, Francisco Vicente Plan of Care Planned Activity Planned Date Details Comments Source Future Scheduled 2000-01-21 65+ PNEUMOCOCCAL Cardona Rastafari Test 00:00:00 VACCINE (1 of 1 - PPSV23) [code = 65+ PNEUMOCOCCAL VACCINE (1 of 1 - PPSV23)] Future Scheduled 1985 SHINGLES VACCINES (#1) Lalito Vicente Test 00:00:00 [code = SHINGLES VACCINES (#1)] Encounters Start End Encounter Admission Attending Care Care Encounter Source Date/Time Date/Time Type Type Clinicians Facility Department ID 2019-08-04 2019-08-04 Outpatient MADI DRUMMOND [facility] [id number] [place] 00:00:00 00:00:[address] 2019-06-28 2019-06-30 Inpatient MADI DRUMMOND [facility] [id number] [facility] 00:00:00 00:00:[address] 2019-06-15 2019-06-15 Outpatient MADI DRUMMOND [facility] [id number] [place] 00:00:00 00:00:[address] 2019-06-15 2019-06-15 Outpatient MADI DRUMMOND [facility] [id number] [place] 00:00:00 00:00:[address] 2019-05-07 2019-05-07 Outpatient MADI DRUMMOND [facility] [id number] [place] 00:00:00 00:00:[address] 2019-05-04 2019-05-04 Outpatient MADI DRUMMOND [facility] [id number] [facility] 00:00:00 00:00:[address] Results Test Description Test Time Test Comments Results Result Comments Source AFB culture 2019-08-10 00:13:59 Test Item Value Reference Range Interpretation Comme nts AFB culture isolate No growth after 6 weeks of Specimen InformationSpecimen (test code = 543-9) incubation. Source: TissueSpecimen Site: Lung , RIGHT LOWER L OBE Cardona MethodistFungus [id number] 00:15:37 Test Item Value Reference Range Interpretation Comments Fungus culture No growth Specimen isolate (test after 4 weeks InformationSp ecimen code = 1441) of Source: TissueS pecimen incubation. Site: Lung , RI GHT LOWER LOBE Brendan MethodistTB [id number] 16:30:38 Test Item Value Reference Range Interpretation Comments TB T-SPOT (test SEE NOTE T-SPOT TUBER CULOSISNil code = 2260) Control: 0Pane l A: 1Panel B: 3Positive Control: SATRe sult: NEGATIVENOTE: T MTC INDICATES TOO MANY SPOTS TO COUNT SAT INDICATES T HE WELL WAS SATURATEDRESULT S INTERPRETATION: RESULTS ARE NEGATIVE WHEN ( PANEL A-NIL) OR (PANEL B-NIL) < = 4 SPOTS, INCLUDING VALUE S LESS THAN ZERO.RESULTS AR E POSITIVE WHEN (PANEL A-NIL) O R (PANEL B-NIL) >= 8 SPOTSRESUL TS ARE BORDERELINE WHE N EITHER (PANEL A-NIL) OR (PANE L B-NIL) = 5,6,0R 7.THE TE ST IS INVALID WHEN EITHER OF THE FOLLOWING CONDITIONS IS M ET:1.) THE NIL CONTROL HAS >10 SPOTS2.) THE MITOGEN (POSITI VE CONTROL) HAS <20 SPOTS AND B OTH (PANEL A-NIL) AND (TORREZ EL B-NIL) <= 4 SPOTS.M. TUBERC ULOSIS INFECTION UNLIK NANI, BUT CANNOT BE EXCLUDED BENNIE ECIALLY WHEN:1. ANY ILLNESS IS CONSISTENT WITH TB DISEASE.2. L IKELIHOOD OF PROGRESSION TO DISEASE (e.g. DUE TO IMMUNOSU PPRESSION) IS INCREASED.LIMIT ATIONS:DIAGNOSI NG OR EXCLUDING TUBERCULOSIS DISEASE, AND SESSING THE PROBABILITY OF LTBI, REQUIRES A COMBINATION O F EPIDEMIOLOGICAL , HISTORICAL, MEDICAL, AND DI AGNOSTIC FINDINGS THAT S HOULD BE TAKEN INTO ACCOUNT WH EN INTERPRETING T-SPOT.TB REFER TO THE MOST RECENT CDC ROSA FOX (HTTP: //[email or web address] [email or web address]) FOR DETAILED RECOMM ENDATIONSABOUT DIAGNOSING TB I NFECTION (INCLUDING DISE ASE) AND SELECTING PERSO NS FOR TESTING.1.) A F ALSE NEGATIVE RESULT CAN BE C AUSED BY INCORRECT BLOOD SAMPLECOLLECTIO N OR IMPROPER HANDLING OF THE SPECIMEN, AFFECTING LYMPH OCYTE FUNCTION2.) THE PERFORMANCE OF T-SPOT.TB HAS N OT BEEN ADEQUATELY EVAL UATED WITH SPECIMENS FROM INDIVIDUALS YOUNGER THAN A GE 17 YEARS, IN WOMEN, AND IN PATIENTS WITH H EMOPHILIA.3-) A FALSE POSITIVE RESULT WAS OBTAINED FOR T- SPOT.TB WHEN TESTED IN SUBJE CTS WITH M. XENOPI, M. KANS ASII, AND M. GORDONAE. WHIL E ESAT-6 AND CFP-10 ANTIGENS ARE ABSENT FROM BCG STRAIN S OF M. BOVIS AND FROM MOST E NVIRONMENTAL MYCOBACTERIA, I T IS POSSIBLE THAT A POSITIVE T-SPOT.TB RESULT MAY BE D UE TO INFECTION WITH M. KANSASI I, M. SZULGAI,M. GORD ONAE, OR M. MARINUM. ALTERN ATIVE TESTS WOULD BE REQUIR ED IF THESE INFECTIONS ARE SUSPECTED.4.) A NEGATIVE TEST R ESULT DOES NOT EXCLUDE THE POS SIBILITY OF EXPOSURE TO, OR INFECTION WITH, M. TUBERC ULOSIS. PATIENTS WITH R ECENT EXPOSURE TO TB INFECTED INDIVIDUALS EXHIBITING A NE GATIVE T-SPOT.TB RESUL T SHOULD BE CONSIDERED FOR RETESTING WITHIN 6 WEEKS OR IF OTHER RELEVANT CLINIC AL SYMPTOMS INDICATE POSSIB LE INFECTION.5.) A POSITIVE TEST RESULT DOES NOT RULE IN ACTIVE TB DISEASE; OTH ER TESTS SHOULD BE PERFORMED TO CONFIRM THE DIAGNOSIS OF AC TIVE TB DISEASE SUCH SPUTUM SMEAR AND CULTURE, PCR AN D CHEST RADIOGRAPHY.6.) T-SPOT.TB TEST HAS NOT BEEN EV ALUATED IN SUBJECTS WHO VILLARREAL VE RECEIVED >1 MONTH OF ANTI-T B THERAPY.7. ) REFRIGERATED AN D FROZEN SAMPLES ARE NOT RECOMMENDED FOR USE WITH T= SPOT.TB TEST.Performed by:[facility] Molecular Tuber culosis Laboratory [facility] ([id number])[place], [place] [address] [facility] pathology [id number] 17:49:45 Test Item Value Reference Range Interpretation Comments Case number (test [id number] code = 1779246) Surgical pathology See link below for PDF report (test code = Lab Report 2255) Result status (test This is Supplemental code = 9819423) Report for [id number] [facility] [id number] 08:21:23 Test Item Value Reference Range Interpretation Comments POC glucose (test 71 mg/dL 65-99 Software Build Engineer N festus: Mccoy code = 41237-3) Ysabel ID: [id number] able: [facility] Notified RN Brendan VicenteBasic metabolic [id number] 07:25:03 Test Item Value Reference Range Interpretation Comments Sodium (test code = 2951-2) 138 135- 148 mEq/L Potassium (test code = 2823-3) 3.8 3.5- 5.0 mEq/L Chloride (test code = 2075-0) 103 98- 112 mEq/L CO2 (test code = 2027-9) 28 24- 31 mEq/L Anion gap (test code = 92326-7) 7@ANIO 7- 15 mEq/L BUN (test code = 3094-0) 10 mg/dL 8-23 Creatinine (test code = 2160-0) 0.66 mg/dL 0.5-0.9 Glucose (test code = 2345-7) 94 mg/dL 65-99 Calcium (test code = 32697-8) 8.7 mg/dL 8.8-10.2 L Lab Interpretation (test code = Abnormal 46081-3) Cardona MethodistMagnesium [id number] 07:25:03 Test Item Value Reference Range Interpretation Comments Magnesium (test code = 72225-5) 1.9 mg/dL 1.6-2.4 Brendan MethodistEstimated [id number] 07:25:03 Test Item Value Reference Range Interpretation Comments Estimated GFR (test 81 mL/min/1.73 m2 [facility] Units code = 5488) InterpretationG 1 >=90 Normal or highG2 60-89 Mildly gotqcfwzuO4x 45-59 Mildly to mode rately kdeskfcorG8s 30-44 Moderately to severely decreasedG4 15-29 Severely decre asedG5 <15 Kidn ey failureThe eGFR was calculated demario verde the Chronic Kidney Disease Epidemiology Co llaboration (CKD-EPI) equat ion. Interpretation is based on recommendations of the National Kidney Foundation-Kidn ey Disease Outcomes Qualit y Initiative (NKF-KDOQI) pub lished in 2014. Cardona MethodistPhosphorus [id number] 07:25:02 Test Item Value Reference Range Interpretation Comments Phosphorus (test code = 2777-1) 2.4 mg/dL 2.4-4.5 Brendan MethodistCBC with platelet and [id number] 07:05:33 Test Item Value Reference Range Interpretation Comments WBC (test code = 33179-8) 12.17 4.50- 11.00 k/uL H RBC (test code = 22304-8) 3.80 m/uL 4.2-5.5 L HGB (test code = 718-7) 11.7 g/dL 12-16 L HCT (test code = 4544-3) 36.1 % 37-47 L MCV (test code = 787-2) 95.0 fL 82-100 MCH (test code = 785-6) 30.8 pg 27-34 MCHC (test code = 786-4) 32.4 g/dL 31-37 RDW - SD (test code = 46.7 fL 37-55 60389-7) MPV (test code = 36805-0) 11.0 fL 8.8-13.2 Platelet count (test code 252 150- 400 k/uL = 70872-1) Nucleated RBC (test code 0.00 /100 WBC = 68858-7) Neutrophils (test code = 68.4 % 39-69 27061-1) Lymphocytes (test code = 18.2 % 25-45 L 12260-6) Monocytes (test code = 9.0 % 0-10 56814-8) Eosinophils (test code = 3.5 % 0-5 60116-5) Basophils (test code = 0.4 % 0-1 94447-8) Immature granulocytes 0.5 % 0-1 "Immat ure (test code = 71534-8) granul ocytes" (promyelocytes, myelocytes, metamyelocytes) Lab Interpretation (test Abnormal code = 79857-5) [facility] MethodistXR Chest 1 Vw [id number] 15:29:18Hm Interface, Radiology Results Incoming - 06/29/2019 3:32 PM CSTSINGLE VIEW CHEST, 06/29/2019Clinical History: Follow-up pneumothorax.Technique: Single, portable AP view chest.Comparison: 06/29/2019Impression:1.A right pneumothorax is stable to improved relative to 1141 hours given differences in technique, with an air gap of 0.9 cm (previously 1.4 cm)2.No pleural effusions or pneumothorax.3.Normal heart size and mediastinal contour for technique.4.Normal pulmonary vasculature.5.Slightly increased right chest wall subcutaneous emphysema. Intact skeleton. 6.Partially imaged cervical fusion hardware.Cardona MethodistFungus [id number] 13:46:42 Test Item Value Reference Range Interpretation Comments Fungus smear No fungi Specimen (test code = observed. InformationSpec imen Source: 1443) TissueSpecimen Site: Lung , RIGHT LOWER LOB E Mcpherson MethodistAFB [id number] 11:24:32 Test Item Value Reference Range Interpretation Comments AFB stain No acid fast Specimen (test code = bacilli (AFB) InformationSpe cimen 676-7) seen. Source: TissueS pecimen Site: Lung , RI GHT LOWER LOBE Mcpherson MethodistPrepare [id number] 15:50:00 Test Item Value Reference Range Interpretation Comments Product name (test code Red Blood Cells -1, = 25) Leukored Unit number (test code [id number] = [id number]) Product code (test code F7042S08 = 3092) Dispense status (test Returned to not code = 24) transfused Blood expiration date (test code = 302) Blood type code (test 8400 code = 308) Blood type (test code = AB POSITIVE 1314) Compatibility (test Compatible code = 6400) Mcpherson MethodistArterial blood gas, [id number] 13:17:51 Test Item Value Reference Range Interpretation Comments pH, arterial (test code = 2744-1) 7.46 7.35-7.45 H pCO2, arterial (test code = 2019-8) 35 35- 45 mmHg pO2, arterial (test code = 2703-7) 306 80- 90 mmHg H Temperature, Celsius (test code = 35.9 Degrees C 8310-5) O2 saturation, arterial (test code = 100 % 95-100 2708-6) pH, arterial corrected (test code = 7.47 96531-7) pCO2, arterial corrected (test code 33 mmHg = 28471-2) pO2, arterial corrected (test code = 301 mmHg 94818-6) Base excess, arterial (test code = 1 -2 - 2 mEq-L 1925-7) Lab Interpretation (test code = Abnormal 19396-4) Cardona MethodistGlucose level, [id number] 13:17:51 Test Item Value Reference Range Interpretation Comments Glucose, syringe (test code = 102 mg/dL 65-99 H 2345-7) Lab Interpretation (test code = Abnormal 73917-3) Brendan MethodistHemoglobin, [id number] 13:17:51 Test Item Value Reference Range Interpretation Comments Hemoglobin, syringe (test code = 11.9 g/dL 12-16 L 718-7) Lab Interpretation (test code = Abnormal 26209-4) Brendan MethodistIonized calcium, [id number] 13:17:51 Test Item Value Reference Range Interpretation Comments Ionized calcium, arterial (test 1.02 mmol/L 1.11-1.32 L code = 51862-1) Lab Interpretation (test code = Abnormal 19883-9) Brendan MethodistPotassium, [id number] 13:17:51 Test Item Value Reference Range Interpretation Comments Potassium, syringe (test code = 2007) 3.6 3.5- 5.0 mEq/L Brendan MethodistSodium level, [id number] 13:17:51 Test Item Value Reference Range Interpretation Comments Sodium, syringe (test code = 2947-0) 138 135- 148 mEq/L Brendan [id number] 12:55:57Trice Moseley 06/28/2019 12:57 PMAirwayDate/Time: 06/28/2019 12:18 PMPerformed by: Jh Boone MDAuthorized by: Jh Boone MD Location: ORUrgency: ElectiveDifficult Airway: No Preoxygenated with 100% O2: Yes Mask Ventilation: Assisted maskFinal Airway Type: Endotracheal airwayFinal Endotracheal Airway: ETT - double lumen leftCuffed: Yes Technique Used: Video stuart ngoscopyDevices/Methods Used in Placement: Intubating stylet and fiberopticInsertion Site: OralBlade Type: Watson (S3)Laryngoscope Blade/Videolaryngoscope Blade Size: 3ETT Double Lumen (fr): 37Cuff at minimum occlusion pressure: Yes Measured from: LipsETT to Lips (cm): 31Placement Verified by: CO2 detection, direct visualization and fiber optic visualization Laryngoscopic view: Grade I -full view of glottisRapid Sequence Induction (RSI): No Modified RSI: No Number of Attempts at Approach: 1 Eyes taped; Glidescope S3 blade used; KENDAL placed with use of fiberoptic scopeMcpherson MethodistType and [id number] 17:49:00 Test Item Value Reference Range Interpretation Comments ABO grouping (test code = 883-9) AB Rh type (test code = 66599-2) POS Antibody screen (gel) (test code = NEG 890-4) Mcpherson MethodistComprehensive metabolic [id number] 17:13:56 Test Item Value Reference Range Interpretation Comments Sodium (test code = 139 135- 148 mEq/L 2951-2) Potassium (test code = 4.2 3.5- 5.0 mEq/L 2823-3) Chloride (test code = 99 98- 112 mEq/L 2075-0) CO2 (test code = 2027-9) 30 24- 31 mEq/L Anion gap (test code = 10@ANIO 7- 15 mEq/L 79396-7) BUN (test code = 3094-0) 14 mg/dL 8-23 Creatinine (test code = 0.58 mg/dL 0.5-0.9 2160-0) Glucose (test code = 98 mg/dL 65-99 2345-7) Calcium (test code = 9.8 mg/dL 8.8-10.2 16918-4) Protein (test code = 7.8 g/dL 6.3-8.3 [place] 9994.6-7.0 2885-2) g/dL1 sjnj1114.4-7.6 g/dL7 months-9zfud516 .1- 7.3 g/dL1-2 .6-7.5 g/dL>3 ywutq476.0-8.0 g/nN68-6246819. 3-8 .3 g/dL Albumin (test code = 3.8 g/dL 3.5-5 1751-7) A/G ratio (test code = 1.0 0.7-3.8 1759-0) Alkaline phosphatase 109 U/L 35-104 H (test code = 6768-6) AST (test code = 1920-8) 26 U/L 10-35 ALT (test code = 1742-6) 24 U/L 5-50 Total bilirubin (test 0.3 mg/dL 0-1.2 code = 1975-2) Lab Interpretation (test Abnormal code = 44197-1) Mcpherson MethodistPartial thromboplastin time, [id number] 17:07:56 Test Item Value Reference Range Interpretation Comments PTT (test code = 25.8 23.0- 36.0 [place] [address]-6) unfractionated heparin is61.0-112.0 se conds which corresponds to Anti-Xa0.3-0.7 U/ml. Mcpherson MethodistProthrombin time with [id number] 17:07:18 Test Item Value Reference Range Interpretation Comments Prothrombin time (test 12.4 11.5- 14.5 sec code = 5902-2) INR (test code = 0.9 The Interna tional 89155-3) Normalized Rati o (INR) is a therapeutic m onitoring tool for patien ts who are stable on oral anticoagulant t herapy. An INR of 2.0-3.0 is suggested for d eep vein thrombosis/pulm onary embolism. Mcpherson MethodistSpirometry, diffusion, lung [id number] 17:07:25 Test Item Value Reference Range Interpretation Comments FEV1 Pre (test code = 5348) 2.15 L FEV1/FVC % Pre (test code = 84.17 % 5361) FVC Pre (test code = 5354) 2.56 L PEF Pre (test code = 5367) 6.82 L/s FEF 25-75% Pre (test code = 2.81 L/s 5547) DLCO Pre (test code = 5423) 17.25 ml/(min*mmHg) DL/VA Pre (test code = 5437) 4.32 ml/(min*mmHg*L) VA SB Pre (test code = 5444) 3.99 L DLCOc Pre (test code = 5430) 17.25 ml/(min*mmHg) KCOc SB Pre (test code = 4.32 ml/(min*mmHg*L) 5535) Hb Pre (test code = 5540) 13.4 g(Hb)/dL R0.5IN Pre (test code = 5514) 1.49 3.06- 3.06 cmH2O*s/L FRCpl Pre (test code = 5388) 2.58 L 1.79-3.43 RV Pre (test code = 5402) 2.32 L 1.62-2.77 TLC Pre (test code = 5416) 4.94 L 3.62-5.59 RV % TLC Pre (test code = 46.94 % 37.93-57.11 5409) VC Pre (test code = 5374) 2.62 L 1.54-2.84 ERV Pre (test code = 5381) 0.26 L 0.42-0.42 IC Pre (test code = 5395) 2.36 L 1.63-1.63 sR0.5IN Pre (test code = 4.5 cmH2O*s 5521) Raw Pre (test code = 5507) 2.71 3.06- 3.06 cmH2O*s/L sGaw Predicted (test code = 0.12 0.10- 0.10 1/(cmH2O*s) 5528) FEV1 Predicted (test code = 1.61 5302) FEV1 LLN (test code = 5347) 1.06 FEV1 % Pre of Predicted (test 133.4 % code = 5308) FVC Predicted (test code = 2.19 5307) FVC LLN (test code = 5353) 1.54 FVC % Pre of Predicted (test 116.5 % code = 5355) FEV1/FVC % Predicted (test 73 code = 5359) FEV1/FVC % LLN (test code = 63 5360) FEV1/FVC % Pre of Predicted 115.4 % (test code = 5362) FEF 25-75% Predicted (test 1.09 code = 5546) FEF 25-75% LLN (test code = -0.07 5545) FEF 25-75% % Pre of Predicted 257.9 % (test code = 5548) PEF Predicted (test code = 4.09 5310) PEF LLN (test code = 5366) 2.49 PEF % Pre of Predicted (test 166.6 % code = 5368) VC Predicted (test code = 2.19 5372) VC LLN (test code = 5373) 1.54 VC % Pre of Predicted (test 119.5 % code = 5375) ERV Predicted (test code = 0.42 5379) ERV LLN (test code = 5380) 0.42 ERV % Pre of Predicted (test 62.3 % code = 5382) FRCpl % Predicted (test code 2.61 = 5386) FRCpl % LLN (test code = 1.79 5387) FRCpl % Pre of Predicted 98.8 % (test code = 5389) IC Predicted (test code = 1.63 5393) IC LLN (test code = 5394) 1.63 IC % Pre of Predicted (test 145.3 % code = 5396) RV Predicted (test code = 2.19 5400) RV LLN (test code = 5401) 1.62 RV % Pre of Predicted (test 105.7 % code = 5403) RV % TLC Predicted (test code 48 = 5407) RV % TLC LLN (test code = 38 5408) RV % TLC % Pre of Predicted 98.8 % (test code = 5410) TLC Predicted (test code = 4.6 5414) TLC LLN (test code = 5415) 3.62 TLC % Pre of Predicted (test 107.3 % code = 5417) Raw Predicted (test code = 3.06 5505) Raw LLN (test code = 5506) 3.06 Raw % Pre of Predicted (test 88.6 % code = 5508) R0.5IN Predicted (test code = 3.06 5512) R0.5IN LLN (test code = 5513) 3.06 R0.5IN % Pre of Predicted 48.7 % (test code = 5515) sGaw Predicted (test code = 0.1 5526) sGaw LLN (test code = 5527) 0.1 sGaw % Pre of Predicted (test 119.7 % code = 5529) DLCO Predicted (test code = 18.13 5421) DLCO LLN (test code = 5422) 11.63 DLCO % Pre of Predicted (test 95.1 % code = 5424) DLCOc Predicted (test code = 18.13 5428) DLCOc LLN (test code = 5429) 11.63 DLCOc % Pre of Predicted 95.1 % (test code = 5431) DL/VA Predicted (test code = 4.16 5435) DL/VA LLN (test code = 5436) 2.84 DL/VA % Pre of Predicted 103.8 % (test code = 5438) KCOc SB Predicted (test code 4.16 = 5533) KCOc SB LLN (test code = 2.84 5534) KCOc SB % Pre of Predicted 103.8 % (test code = 5536) VA SB Predicted (test code = 4.73 5442) VA SB LLN (test code = 5443) 3.63 VA SB % Pre of Predicted 84.4 % (test code = 5445) [facility] Chest Wo [id number] 12:37:29Hm Interface, Radiology Results 06/15/2019 12:40 PM CSTEXAMINATION: CT CHEST WO CONTRASTCL INICAL HISTORY: R91.1 Solitary pulmonary nodule, lung noduleTECHNIQUE: Axial images of the chest were obtained without intravenous contrast. The lack of intravenous contrast reduces the sensitivity ofthe exam and evaluating vasculature. CT imaging was performed with iterative reconstruction technique and/or automated exposure control to reduce radiation dose.COMPARISON: 04/12/2019. PET/CT 05/07/2019FINDINGS:Lungs and airways: Right lower lobe lobulated pulmonary nodule currently measures 6 x 8 mm, unchanged since 04/12/2019. A 2-3 mm nodule in the right lower lobe on image 102 of series 3 is slightly better seen due to less motion artifact on the current examination, but is unchanged. A few additional tiny nodules, for example 2 mm nodule in the medial left apex (image 35), are also unchanged.There are no new suspicious pulmonary nodules. No acute airspace disease. Pleura: No pleural effusion or pneumothorax.Mediastinum and lymph nodes: No lymphadenopathy. Cardiovascular: Mild coronary artery and additional scattered vascular calcifications are present.Upper abdomen: A few calcified splenic and hepatic granulomas are present. Prior cholecystectomy.Musculoskeletal: Partially visualized cervical spine fusion hardware is in place. Scattered degenerative osseous changes are present. Demineralized bones. There is partially visualized lumbar spine fusion hardware in unchanged configuration compared recent PET/CT.IMPRESSION:1.A lobulated 6 x 8 mm nodule in the right lower lobe is unchanged since at least 04/12/2019 and remains indeterminate. Leading considerations include granuloma and indolent neoplasm.2.Additional tiny pulmonary nodules are also unchanged and technically indeterminate, favor combination of benign granulomas and intrapulmonary lymph nodes.[facility]-[id number] MethodistPET/CT Skull Base To Mid [id number] 15:20:15Hm Interface, Radiology Results 05/07/2019 3:23 PM CSTPROCEDURE: PET CT SKULL BASE TO MID THIGHINDICATION: Evaluate lung nodule. Initial treatment strategy. TECHNIQUE: Blood glucose measured at the time of injection was 85 mg/dL. The patient was then injected with 11.4 mCi of 18F-FDG,IV. Approximately one hour later, PET images were acquired from the skull base to the mid thighs. Corresponding, low dose, non- contrast CT scanning was performed as part of the attenuation correction p rocess. Automated dose exposure control was utilized.COMPARISON: Outside chest CT 04/12/2019, showing a 7 mm right lower lobe nodule.FINDINGS: Head and neck: No suspicious brain uptake. Normal uptake in the visualized sinuses, orbits, nasopharynx, and oropharynx. Uptake by the larynx is normal.No suspicious neck lymph node uptake. Chest: No abnormal mediastinal, hilar, or axillary lymph node uptake. No suspicious pulmonary uptake. Previously described right lower lobe nodule is unchangedin size and is without abnormal uptake. Abdomen: Normal uptake in the stomach, spleen, pancreas, liver, and adrenal glands. No abnormal retroperitoneal or mesenteric lymph node uptake. Pelvis: Physiologic bowel uptake. No abnormal pelvic sidewall or inguinal lymph node uptake. Review of the osseous structures demonstrates no suspicious uptake. 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 IMPRESSION: 1. Probable benign right lower lobe pulmonary nodule. Follow-up chest CT is recommended to confirm stability or resolution, as not all malignancies concentrate FDG. [facility]-[id number] MethodFormerly [facility] Chest External [id number] 23:20:41This exam was not acquired at a [facility] facility and has not been interpreted by a [facility] Provider. The exam was imported into our imaging system.[facility]
[2020-04-02] MEDS ORDERED: MORPHINE 4 MG/ML SYR ONE (17:52)
[2020-04-02] MEDS ORDERED: ONDANSETRON 4 MG/2 ML VIAL ONE (17:53)
[2020-04-02] MEDS ORDERED: FENTANYL CITR 100 MCG/2 ML ONE (19:09)
--- NOTE | 2020-04-02 19:47 | RAD REPORT ---
EXAM DESCRIPTION: CT - Chest For Pe Angio - 04/02/2020 7:27 pm CLINICAL HISTORY: Chest pain. right sided chest pain COMPARISON: Chest For Pe Angio dated 04/12/2019 TECHNIQUE: CT angiogram of the pulmonary arteries was performed with MIP. All CT scans are performed using dose optimization technique as appropriate and may include automated exposure control or mA/KV adjustment according to patient size. FINDINGS: No evidence of pulmonary thromboembolism. No acute aortic finding demonstrated. Mild interstitial pulmonary edema is seen. Linear subsegmental atelectasis is seen right lower lobe. No significant pericardial or pleural fluid. No concerning bony finding. Cholecystectomy clips. Mildly prominent colonic distention the IMPRESSION: No evidence of pulmonary thromboembolism. Mild interstitial pulmonary edema.
--- NOTE | 2020-04-02 19:53 | ER ---
Nurse's Notes [facility] Name: Parvin Manzo Age: 85 yrs Sex: Female : 1935 Arrival Date: 04/02/2020 Time: 14:48 Bed 23 Private MD: Laureano Echeverria V Diagnosis: Chest Wall Pain Presentation: 04/02 15:29 Chief complaint: Right sided chest wall pain x 5 days. Denies injury. Had nodule hb removed from lung last June, reports pain is at the incision site. Coronavirus screen: At this time, the client does not indicate any symptoms associated with coronavirus-19. Ebola Screen: No symptoms or risks identified at this time. Initial Sepsis Screen: Does the patient meet any 2 criteria? No. Patient's initial sepsis screen is negative. Does the patient have a suspected source of infection? No. Patient's initial sepsis screen is negative. Risk Assessment: Do you want to hurt yourself or someone else? Patient reports no desire to harm self or others. Onset of symptoms was March 28, 2020. 15:29 Method Of Arrival: Ambulatory hb 15:29 Acuity: ORI 4 hb 17:51 Acuity: ORI 3 iw Historical: - Allergies: 15:32 PENICILLINS (Hives); hb - Home Meds: 15:32 aspirin 81 mg Oral chew 1 tab once daily [Active]; levothyroxine oral [Active]; hb Ranitidine Oral [Active]; - PMHx: 15:32 GERD; Hypothyroidism; hb - PSHx: 15:32 bone transplant; back surgical; hip replacement; hb - Immunization history:: Adult Immunizations up to date. - Social history:: Smoking status: Patient denies any tobacco usage or history of. Screenin:53 Abuse screen: Denies threats or abuse. Denies injuries from another. Nutritional hb screening: No deficits noted. Tuberculosis screening: No symptoms or risk factors identified. Fall Risk None identified. Assessment: 17:53 General: Appears in no apparent distress. Behavior is calm, cooperative. Pain: Pain hb currently is 9 out of 10 on a pain scale. Neuro: Level of Consciousness is awake, alert, obeys commands, Oriented to person, place, time, situation. Cardiovascular: Patient's skin is warm and dry. Respiratory: Respiratory effort is even, unlabored, Respiratory pattern is regular, symmetrical. GI: No signs and/or symptoms were reported involving the gastrointestinal system. : No signs and/or symptoms were reported regarding the genitourinary system. EENT: No signs and/or symptoms were reported regarding the EENT system. Derm: Skin is pink, warm \T\ dry. Musculoskeletal: Reports right lateral chest wall pain. 18:30 Reassessment: Patient appears in no apparent distress at this time. Patient and/or hb family updated on plan of care and expected duration. Pain level reassessed. Patient is alert, oriented x 3, equal unlabored respirations, skin warm/dry/pink. 19:21 Reassessment: Patient appears in no apparent distress at this time. Patient and/or iw family updated on plan of care and expected duration. Pain level reassessed. Patient is alert, oriented x 3, equal unlabored respirations, skin warm/dry/pink. 20:12 Reassessment: Patient waiting for daughter to arrive for ride home Patient states lp1 feeling better. Patient states symptoms have improved. Vital Signs: 15:29 BP 147 / 78; Pulse 67; Resp 16; Temp 97.7(TE); Pulse Ox 99% on R/A; Pain 8/10; hb ED Course: 14:48 Patient arrived in ED. mr 14:48 Laureano Echeverria MD is Private Physician. mr 15:31 Triage completed. hb 15:32 Arm band placed on. hb 16:57 Morris Jones PA is PHCP. jmm 16:57 Rj Finnegan MD is Attending Physician. jmm 17:33 Madhuri Manzo, RN is Primary Nurse. iw 17:50 Inserted saline lock: 20 gauge in right antecubital area, using aseptic technique. hb Blood collected. 17:53 Patient has correct armband on for positive identification. Bed in low position. Call hb light in reach. Side rails up X 1. 17:53 Creatinine, Serum Sent. hb 17:55 Creatinine Sent. hb 19:27 CT Chest For PE Angio In Process Unspecified. EDMS 20:11 No provider procedures requiring assistance completed. IV discontinued, No lp1 redness/swelling at site. Pressure dressing applied. Administered Medications: 17:53 Drug: morphine 4 mg Route: IVP; Site: right antecubital; hb 18:30 Follow up: Response: No adverse reaction hb 17:53 Drug: Zofran (Ondansetron) 4 mg Route: IVP; Site: right antecubital; hb 18:30 Follow up: Response: No adverse reaction hb 19:02 Drug: fentaNYL (PF) 50 mcg Route: IVP; Site: right antecubital; iw 20:00 Follow up: Response: Marked relief of symptoms; Pain is decreased lp1 Outcome: 19:53 Discharge ordered by . brandee 20:12 Discharged to home ambulatory, with family. lp1 20:12 Condition: good 20:12 Discharge instructions given to patient, Instructed on discharge instructions, follow up and referral plans. medication usage, Demonstrated understanding of instructions, follow-up care, medications, Prescriptions given X 1. 20:16 Patient left the ED. lp1 Signatures: Dispatcher [employer] EDMS Morris Jones PA PA jmm Rivera, Mary mr Madhuri Manzo RN RN iw Kim Palomo RN RN lp1 Daphne De Leon RN RN hb
--- NOTE | 2020-04-02 19:53 | EDPHYS ---
Physician Documentation [facility] Name: Parvin Manzo Age: 85 yrs Sex: Female : 1935 Arrival Date: 04/02/2020 Time: 14:48 Bed 23 Private MD: Laureano Echeverria V ED Physician Rj Finnegan HPI: 04/02 16:59 This 85 yrs old Female presents to ER via Ambulatory with complaints of Back jmm Pain. 16:59 The patient presents with pain that is acute. Onset: The symptoms/episode jmm began/occurred gradually, 5 day(s) ago. The pain does not radiate. Associated signs and symptoms: Pertinent negatives: fever, hematuria, vomiting, weakness. This is an 85 year old female with a history of GERD, hypothyroidism that presents to the ED with complaints of right sided rib pain beginning approx 5 days ago. patient states the pain is mainly at the site of lung mass biopsy performed this past June. Denies sob, fever, recent trauma. Historical: - Allergies: 15:32 PENICILLINS (Hives); hb - Home Meds: 15:32 aspirin 81 mg Oral chew 1 tab once daily [Active]; levothyroxine oral [Active]; hb Ranitidine Oral [Active]; - PMHx: 15:32 GERD; Hypothyroidism; hb - PSHx: 15:32 bone transplant; back surgical; hip replacement; hb - Immunization history:: Adult Immunizations up to date. - Social history:: Smoking status: Patient denies any tobacco usage or history of. ROS: 16:59 Constitutional: Negative for fever, chills, and weight loss, Cardiovascular: Negative jmm for chest pain, palpitations, and edema, Respiratory: Negative for shortness of breath, cough, wheezing, and pleuritic chest pain. 16:59 Back: Positive for rib pain. 16:59 All other systems are negative. Exam: 16:59 Constitutional: This is a well developed, well nourished patient who is awake, alert, jmm and in no acute distress. Head/Face: atraumatic. Eyes: EOMI, no conjunctival erythema appreciated ENT: Moist Mucus Membranes Neck: Trachea midline, Supple 16:59 Cardiovascular: Regular rate and rhythm. No edema appreciated Respiratory: Normal respirations, no respiratory distress appreciated Abdomen/GI: Non distended, soft Back: Normal ROM Skin: General appearance color normal MS/ Extremity: Moves all extremities, no obvious deformities appreciated, no edema noted to the lower extremities Neuro: Awake and alert, normal gait Psych: Behavior is normal, Mood is normal, Patient is cooperative and pleasant 16:59 Chest/axilla: Palpation: tenderness, that is moderate, of the right lateral anterior chest. Vital Signs: 15:29 BP 147 / 78; Pulse 67; Resp 16; Temp 97.7(TE); Pulse Ox 99% on R/A; Pain 8/10; hb MDM: 16:59 Patient medically screened. [facility] 19:52 Data reviewed: vital signs, nurses notes. Counseling: I had a detailed discussion with [facility] the patient and/or guardian regarding: the historical points, exam findings, and any diagnostic results supporting the discharge/admit diagnosis, radiology results, the need for outpatient follow up, to return to the emergency department if symptoms worsen or persist or if there are any questions or concerns that arise at home. ED course: Patient is alert and non toxic in appearance. Pain relieved in the ED. Patient is advised to follow up with thoracic surgery for reevaluation and otherwise given strict return precautions. Patient understood and agrees with the plan of care. . 04/02 17:21 Order name: Creatinine, Serum [facility] 04/02 17:54 Order name: Creatinine; Complete Time: 18:16 [facility] 04/02 17:20 Order name: CT Chest For PE Angio; Complete Time: 19:[address] [facility] 04/02 17:20 Order name: Saline Lock; Complete Time: 17:[address] [facility] Administered Medications: 17:53 Drug: morphine 4 mg Route: IVP; Site: right antecubital; hb 18:30 Follow up: Response: No adverse reaction hb 17:53 Drug: Zofran (Ondansetron) 4 mg Route: IVP; Site: right antecubital; hb 18:30 Follow up: Response: No adverse reaction hb 19:02 Drug: fentaNYL (PF) 50 mcg Route: IVP; Site: right antecubital; iw 20:00 Follow up: Response: Marked relief of symptoms; Pain is decreased lp1 Disposition: 04/03 09:03 Co-signature as Attending Physician, Rj Finnegan MD I agree with the assessment and [facility] plan of care. Disposition: 04/02/20 19:53 Discharged to Home. Impression: Chest Wall Pain. - Condition is Stable. - Discharge Instructions: Chest Wall Pain. - Prescriptions for orphenadrine citrate 100 mg Oral Tablet Sustained Release - take 1 tablet by ORAL route 2 times per day As needed; 20 tablet. - Medication Reconciliation Form, Thank You Letter, Antibiotic Education, Prescription Opioid Use form. - Follow up: Private Physician; When: 2 - 3 days; Reason: Recheck today's complaints, Continuance of care, Re-evaluation by your physician. Signatures: Dispatcher [employer] EDRj Abdalla MD MD cha Mickail, Joel, PA PA jmm Williams, Irene, RN RN iw Kim Palomo RN RN lp1 Daphne De Leon RN RN Corrections: (The following items were deleted from the chart) 04/02 20:16 19:53 04/02/2020 19:53 Discharged to Home. Impression: Chest Wall Pain. Condition is lp1 Stable. Forms are Medication Reconciliation Form, Thank You Letter, Antibiotic Education, Prescription Opioid Use. Follow up: Private Physician; When: 2 - 3 days; Reason: Recheck today's complaints, Continuance of care, Re-evaluation by your physician. brandee
[2020-04-02 20:29] VITALS: BP 147/78; TEMP 97.7; O2SAT 99
== END 2020-04-02 20:16 | disposition home or self-care (01) ==
LOC: ER 14:44
DX: R07.89 Other chest pain (principal); K21.9 Gastro-esophageal reflux disease without esophagitis; E03.9 Hypothyroidism, unspecified; Z79.82 Long term (current) use of aspirin; Z88.0 Allergy status to penicillin
CPT/HCPCS: 36415; 82565; 71275; 96375; 96374; 99284; Q9967; J3010; J2405

== ENCOUNTER 2020-04-07 11:13 | Emergency (ER) | payer OTHER ==
--- OUTSIDE RECORDS SUMMARY | 2020-04-07 11:17 | XMS REPORT | Continuity of Care Document ---
:1935 Author Organization [facility] t Address [address] [place] [address] Care Team Providers Name Role Phone Juwan WATT Primary Care Physician Jovanny CHUNG Attending Clinician Unavailable Anisha Mcgrath NP Attending Clinician Cornelius Drummond MD Attending Clinician Angel SALVADOR Attending Clinician Unavailable Renée Bryant MD Attending Clinician Pradip Attending Clinician Lesley CHUNG Attending Clinician Unavailable Renetta CHUNG Attending Clinician Unavailable Provider Attending Clinician HODA Admitting Clinician Unavailable Payers Payer Name Policy Type Policy Effective Date Expiration Date Sour ce Number MEDICAREMEDICARE PART [id number] 1999 Ho sylvia A AND 00:00:00 Protestant [id number] 1999[place] [facility] [employer] [place] [id number] 2012 Adia ston OF 00:00:00 Protestant [id number] 3-PresentCommercial Problems Condition Condition Condition Status Onset [...] Date Source Natural brother Lung cancer Cardona Protestant Natural father Heart disease [facility] Protestant Natural mother Breast cancer [facility] Protestant Natural sister Breast cancer [facility] Protestant Natural sister Stroke [facility] [place] thodist Social History Social Habit Start Date Stop Date Quantity Comments Source History of Current smoker [facility] [place] thodist tobacco use Sex Assigned At F Brendan Balderas ethodist Exposure to Not sure [facility] Metho dist SARS-CoV-2 (event) Tobacco use and 2019-08-05 2019-08-[address] [facility] ethodist exposure 00:00:00 00:00:00 Alcohol intake 2019-08-05 2019-08-05 Ex-drinker [facility] [place] [place] thodist 00:00:00 00:00:00 (finding) Tobacco Comment 2019-05-04 2019-05-04 Smoked four years Ho sylvia Protestant 00:00:00 00:00:00 in early twenties Alcohol Comment 2019-05-04 2019-05-04 Occasional wine. 2 [place] Protestant 00:00:00 00:00:00 to 3 glasses a month. Smoking Status Start Date Stop Date Source Former smoker 2019-08-05 00:00:00 2019-08-05 00:00:00 Cardona Protestant Medications Ordered Filled Start Stop Current Ordering Indication Dosage Frequency Signature Comments Components Source Medication Medication Date Date Medication? Clinician (SIG) Name Name magnesium 2020-0 Yes Cardona oxide -12 [facility] (MAG-OX) 10:33: st 400 [...] multivitami 2020-0 Yes 1{tbl} QD Take 1 Ho sylvia n with 2-12 tablet by [facility] minerals [...] tablet 00:00: st 00 torsemide 2018-05 Yes [facility] (DEMADEX) 2-07 [facility] 10 MG 00:00: st tablet 00 traMADol ER 2018-05- No 200mg QD Take 200 [facility] (ULTRAM-ER) 1-18 02-06 mg by Method i [...] Source Name Name FLUZONE QUAD 2019-02-17 Completed [facility] 00:00:00 Protestant Pneumococcal, 2017-04-25 Completed [facility] Unspecified 00:00:00 Protestant Pneumococcal, 2016-04-25 Completed [facility] Unspecified 00:00:00 Protestant Vital Signs Vital Name Observation Time Observation Value Comments Source Systolic blood 2019-07-07 10:27:00 136 mm[Hg] Leo n Protestant pressure Diastolic blood 2019-07-07 10:27:00 70 mm[Hg] Huong naylor Protestant pressure Heart rate 2019-07-07 10:27:00 79 /min [facility] Protestant Body temperature 2019-07-07 10:27:00 36.61 Michelle Gera garcia Protestant Respiratory rate 2019-07-07 10:27:00 17 /min Gera garcia Protestant Body height 2019-07-07 10:27:00 157.5 cm Brendan Vicente Body weight 2019-07-07 10:27:00 70.308 kg Brendan Vicente BMI 2019-07-07 10:27:00 28.35 kg/m2 Brendan Vicente Oxygen saturation in 2019-07-07 10:27:00 96 /min Brendan Vicente Arterial blood by Pulse oximetry Procedures Procedure Date / Time Performing Clinician Source Performed TB T-SPOT 2019-07-07 10:14:00 Mihaela Mcgrath M. POC GLUCOSE 2019-06-30 08:20:00 Madi Drummond Meth odist HC COMPLETE BLD COUNT 2019-06-30 06:25:00 Madi Drummond Protestant W/AUTO DIFF BASIC METABOLIC PANEL 2019-06-30 06:21:00 Madi Drummond Protestant MAGNESIUM LEVEL 2019-06-30 06:21:00 Madi Drummond Meth odist PHOSPHORUS LEVEL 2019-06-30 06:21:00 Madi Drummond Met hodist ESTIMATED GFR 2019-06-30 06:21:00 Madi Drmumond Meth odist XR CHEST 1 VW PORTABLE 2019-06-29 15:00:00 Coco Schneider on Protestant XR CHEST 1 VW PORTABLE 2019-06-29 11:42:00 Coco Schneider on Protestant XR CHEST 1 VW PORTABLE 2019-06-29 06:20:00 Grover Huston HC COMPLETE BLD COUNT 2019-06-29 05:35:00 Grover Huston W/AUTO DIFF BASIC METABOLIC PANEL 2019-06-29 04:00:00 Grover Huston Protestant MAGNESIUM LEVEL 2019-06-29 04:00:00 Grover Huston Protestant PHOSPHORUS LEVEL 2019-06-29 04:00:00 Grover Hustont on Protestant ESTIMATED GFR 2019-06-29 04:00:00 Madi Drummond Meth odist POC GLUCOSE 2019-06-28 17:55:00 Hoda, Min Cornelius Flowers odist XR CHEST 1 VW PORTABLE 2019-06-28 15:38:00 Nathalyjuan manuelGrover Brendan Vicnete SURGICAL PATHOLOGY REQUEST 2019-06-28 13:57:00 Madi Drummond Cornelius Vicente ARTERIAL BLOOD GAS, 2019-06-28 13:05:00 Madi Drummond Cornelius Vicente CORRECTED SODIUM LEVEL, SYRINGE 2019-06-28 13:05:00 Hoda Madi paul Protestant POTASSIUM, SYRINGE 2019-06-28 13:05:00 Madi Drummond Cornelius Balderas ethodist IONIZED CALCIUM, ARTERIAL 2019-06-28 13:05:00 Madi Drummond Cornelius Vicente HEMOGLOBIN, SYRINGE 2019-06-28 13:05:00 Madi Drummond Cornelius Vicente GLUCOSE LEVEL, SYRINGE 2019-06-28 13:05:00 Hoda Madi Borja on Protestant MI AN ELECTIVE 2019-06-28 12:55:57 Jh Boone ENDOTRACHEAL AIRWAY FUNGUS CULTURE 2019-06-28 00:00:00 Madi Drummond Cornelius Flowers odist AFB STAIN 2019-06-28 00:00:00 Madi Drummond Cornelius Flowers odist FUNGUS SMEAR 2019-06-28 00:00:00 Madi Drummond Cornelius Flowers odist AFB CULTURE 2019-06-27 23:00:00 Madi Drummond Cornelius byers HC COMPLETE BLD COUNT 2019-06-17 16:20:00 HodaMadi W/AUTO DIFF COMPREHENSIVE METABOLIC 2019-06-17 16:20:00 Madi Drummond PANEL PROTHROMBIN TIME WITH INR 2019-06-17 16:20:00 Hoda Madi Cornelius Vicente PARTIAL THROMBOPLASTIN 2019-06-17 16:20:00 Madi Drummond on Protestant TIME (PTT) TYPE AND SCREEN 2019-06-17 16:20:00 Madi Drummond odist ESTIMATED GFR 2019-06-17 16:20:00 Madi Drummond PREPARE RBC 2019-06-17 16:20:00 Madi Drummond SPIROMETRY, DIFFUSION, 2019-06-15 17:07:25 Madi Drummond on Protestant LUNG VOLUMES CT CHEST WO CONTRAST 2019-06-15 11:27:17 Madi Drummond Protestant PET CT SKULL BASE TO MID 2019-05-07 14:32:56 Madi Drummond Protestant THIGH POC GLUCOSE 2019-05-07 12:55:[address] odist CT CHEST EXTERNAL STUDY 2019-04-12 09:47:[address] ANGIOGRAM PE CHEST 2019-04-12 00:00:00 Provider, Francisco Vicente Plan of Care Planned Activity Planned Date Details Comments Source Future Scheduled 2000-01-21 65+ PNEUMOCOCCAL Cardona Protestant Test 00:00:00 VACCINE (1 of 1 - PPSV23) [code = 65+ PNEUMOCOCCAL VACCINE (1 of 1 - PPSV23)] Future Scheduled 1985 SHINGLES VACCINES (#1) Lalito Vicente Test 00:00:00 [code = SHINGLES VACCINES (#1)] Encounters Start End Encounter Admission Attending Care Care Encounter Source Date/Time Date/Time Type Type Clinicians Facility Department ID 2019-08-04 2019-08-04 Outpatient MADI DRUMMOND [facility] [id number] [place] 00:00:00 00:00:[address] 2019-06-28 2019-06-30 Inpatient MADI DRUMMOND [facility] [id number] [place] 00:00:00 00:00:[address] 2019-06-15 2019-06-15 Outpatient MADI DRUMMOND [facility] [id number] [place] 00:00:00 00:00:[address] 2019-06-15 2019-06-15 Outpatient MADI DRUMMOND [facility] [id number] [place] 00:00:00 00:00:[address] 2019-05-07 2019-05-07 Outpatient MADI DRUMMOND [facility] [id number] [place] 00:00:00 00:00:[address] 2019-05-04 2019-05-04 Outpatient MADI DRUMMOND [facility] [id number] [facility] 00:00:00 00:00:[address] Results Test Description Test Time Test Comments Results Result Comments Source AFB culture 2019-08-10 00:13:59 Test Item Value Reference Range Interpretation Comme nts AFB culture isolate No growth after 6 weeks of Specimen InformationSpecimen (test code = 543-9) incubation. Source: TissueSpecimen Site: Lung , RIGHT LOWER L OBE Brendan MethodistFungus [id number] 00:15:37 Test Item Value Reference Range Interpretation Comments Fungus culture No growth Specimen isolate (test after 4 weeks InformationSp ecimen code = 1441) of Source: TissueS pecimen incubation. Site: Lung , RI GHT LOWER LOBE Brendan MethodistTB [id number] 16:30:38 Test Item Value Reference Range Interpretation [...] MEDICAL, AND DI AGNOSTIC FINDINGS THAT S KERRY BE TAKEN INTO ACCOUNT WH EN INTERPRETING T-SPOT.TB REFER TO THE MOST RECENT CDC GUID ANCE (HTTP: //[email or web address].CDC.GOV/N CHSTP/TB) FOR DETAILED RECOMM ENDATIONSABOUT [...] OF M. BOVIS AND FROM MOST E AKIRONMENTAL MYCOBACTERIA, I T IS POSSIBLE THAT A [...] RECOMMENDED FOR USE WITH T= SPOT.TB TEST.Performed by:[facility] Molecular Tuber culosis Laboratory [facility] ([id number])[place], [place] [address] [facility] [id number] 17:49:45 Test Item Value Reference Range Interpretation Comments Case number (test [id number] code = 7820633) Surgical pathology See link below for PDF report (test code = Lab Report 2255) Result status (test This is Supplemental code = 0784834) Report for [id number] [facility] [id number] 08:21:23 Test Item Value Reference Range Interpretation Comments POC glucose (test 71 mg/dL 65-99 Propagator N festus: Ayde code = 56566-4) Ysabel ID: [id number] able: [facility] Notified RN Brendan VicenteBasic metabolic [id number] 07:25:03 Test Item Value Reference Range Interpretation Comments Sodium (test code = 2951-2) 138 135- 148 mEq/L Potassium (test code = 2823-3) 3.8 3.5- 5.0 mEq/L Chloride (test code = 2075-0) 103 98- 112 mEq/L CO2 (test code = 8-9) 28 24- 31 mEq/L Anion gap (test code = 55314-3) 7@ANIO 7- 15 mEq/L BUN (test code = 3094-0) 10 mg/dL 8-23 Creatinine (test code = 2160-0) 0.66 mg/dL 0.5-0.9 Glucose (test code = 2345-7) 94 mg/dL 65-99 Calcium (test code = 02755-0) 8.7 mg/dL 8.8-10.2 L Lab Interpretation (test code = Abnormal 74877-2) Cardona MethodistMagnesium [id number] 07:25:03 Test Item Value Reference Range Interpretation Comments Magnesium (test code = 16801-5) 1.9 mg/dL 1.6-2.4 Cardona MethodistEstimated [id number] 07:25:03 Test Item Value Reference Range Interpretation Comments Estimated GFR (test 81 mL/min/1.73 m2 [facility] Units code = 5488) InterpretationG 1 >=90 Normal or highG2 60-89 Mildly cdrlqemvkN6z 45-59 Mildly to mode rately giivqictxT3s 30-44 Moderately to severely decreasedG4 15-29 Severely decre asedG5 <15 Kidn ey failureThe eGFR was calculated demario verde the Chronic Kidney Disease Epidemiology Co llaboration (CKD-EPI) equat ion. Interpretation is based on recommendations of the National Kidney Foundation-Kidn ey Disease Outcomes Qualit y Initiative (NKF-KDOQI) pub lished in 2014. Cardona SergeiistPhosphorus [id number] 07:25:02 Test Item Value Reference Range Interpretation Comments Phosphorus (test code = 2777-1) 2.4 mg/dL 2.4-4.5 [facility] with platelet and [id number] 07:05:33 Test Item Value Reference Range Interpretation Comments WBC (test code = 95981-2) 12.17 4.50- 11.00 k/uL H RBC (test code = 40565-1) 3.80 m/uL 4.2-5.5 L HGB (test code = 718-7) 11.7 g/dL 12-16 L HCT (test code = 4544-3) 36.1 % 37-47 L MCV (test code = 787-2) 95.0 fL 82-100 MCH (test code = 785-6) 30.8 pg 27-34 MCHC (test code = 786-4) 32.4 g/dL 31-37 RDW - SD (test code = 46.7 fL 37-55 67386-5) MPV (test code = 36572-0) 11.0 fL 8.8-13.2 Platelet count (test code 252 150- 400 k/uL = 94452-1) Nucleated RBC (test code 0.00 /100 WBC = 04472-9) Neutrophils (test code = 68.4 % 39-69 24043-9) Lymphocytes (test code = 18.2 % 25-45 L 20670-4) Monocytes (test code = 9.0 % 0-10 93720-0) Eosinophils (test code = 3.5 % 0-5 40030-3) Basophils (test code = 0.4 % 0-1 23205-8) Immature granulocytes 0.5 % 0-1 "Immat ure (test code = 91061-0) granul ocytes" (promyelocytes, myelocytes, metamyelocytes) Lab Interpretation (test Abnormal code = 27436-6) Ceres MethodistXR Chest 1 Vw [id number] 15:29:18Hm Interface, Radiology Results - 06/29/2019 3:32 PM CSTSINGLE VIEW CHEST, [...] emphysema. Intact skeleton. 6.Partially imaged cervical fusion hardware.Ceres MethodistFungus [id number] 13:46:42 Test Item Value Reference Range Interpretation Comments Fungus smear No fungi Specimen (test code = observed. InformationSpec imen Source: 1443) TissueSpecimen Site: Lung , RIGHT LOWER LOB E Ceres MethodistAFB [id number] 11:24:32 Test Item Value Reference Range Interpretation Comments AFB stain No acid fast Specimen (test code = bacilli (AFB) InformationSpe cimen 676-7) seen. Source: TissueS pecimen Site: Lung , RI GHT LOWER LOBE Ceres MethodistPrepare [id number] 15:50:00 Test Item Value Reference Range Interpretation Comments Product name (test code Red Blood Cells -1, = 25) Leukored Unit number (test code [id number] = [id number]) Product code (test code I2475O02 = 3092) Dispense status (test Returned to not code = 24) transfused Blood expiration date (test code = 302) Blood type code (test 8400 code = 308) Blood type (test code = AB POSITIVE 1314) Compatibility (test Compatible code = 6400) Ceres MethodistArterial blood gas, [id number] 13:17:51 Test Item Value Reference Range Interpretation Comments pH, arterial (test code = 2744-1) 7.46 7.35-7.45 H pCO2, arterial (test code = 2018-) 35 35- 45 mmHg pO2, arterial (test code = 2703-7) 306 80- 90 mmHg H Temperature, Celsius (test code = 35.9 Degrees C 8310-5) O2 saturation, arterial (test code = 100 % 95-100 2708-6) pH, arterial corrected (test code = 7.47 96671-9) pCO2, arterial corrected (test code 33 mmHg = 98553-5) pO2, arterial corrected (test code = 301 mmHg 07861-3) Base excess, arterial (test code = 1 -2 - 2 mEq-L 1925-7) Lab Interpretation (test code = Abnormal 05333-2) Ceres MethodistGlucose level, [id number] 13:17:51 Test Item Value Reference Range Interpretation Comments Glucose, syringe (test code = 102 mg/dL 65-99 H 2345-7) Lab Interpretation (test code = Abnormal 39255-5) Brendan MethodistHemoglobin, [id number] 13:17:51 Test Item Value Reference Range Interpretation Comments Hemoglobin, syringe (test code = 11.9 g/dL 12-16 L 718-7) Lab Interpretation (test code = Abnormal 62461-3) Brendan MethodistIonized calcium, [id number] 13:17:51 Test Item Value Reference Range Interpretation Comments Ionized calcium, arterial (test 1.02 mmol/L 1.11-1.32 L code = 07675-0) Lab Interpretation (test code = Abnormal 33642-1) Brendan MethodistPotassium, [id number] 13:17:51 Test Item Value Reference Range Interpretation Comments Potassium, syringe (test code = 2007) 3.6 3.5- 5.0 mEq/L Brendan MethodistSodium level, [id number] 13:17:51 Test Item Value Reference Range Interpretation Comments Sodium, syringe (test code = 2947-0) 138 135- 148 mEq/L Brendan [id number] 12:55:57Trice Moseley 06/28/2019 12:57 PMAirwayDate/Time: 06/28/2019 12:18 [...] used; KENDAL placed with use of fiberoptic scopeCeres MethodistType and [id number] 17:49:00 Test Item Value Reference Range Interpretation Comments ABO grouping (test code = 883-9) AB Rh type (test code = 72428-6) POS Antibody screen (gel) (test code = NEG 890-4) Ceres MethodistComprehensive metabolic [id number] 17:13:56 Test Item Value Reference Range Interpretation Comments Sodium (test code = 139 135- 148 mEq/L 2951-2) Potassium (test code = 4.2 3.5- 5.0 mEq/L 2823-3) Chloride (test code = 99 98- 112 mEq/L 2075-0) CO2 (test code = 8-9) 30 24- 31 mEq/L Anion gap (test code = 10@ANIO 7- 15 mEq/L 32423-0) BUN (test code = 3094-0) 14 mg/dL 8-23 Creatinine (test code = 0.58 mg/dL 0.5-0.9 2160-0) Glucose (test code = 98 mg/dL 65-99 2345-7) Calcium (test code = 9.8 mg/dL 8.8-10.2 73845-3) Protein (test code = 7.8 g/dL 6.3-8.3 9994.6-7.0 2885-2) g/dL1 clwn7201.4-7.6 g/dL7 months-1lkxe791 .1- 7.3 g/dL1-2 fodlg005.6-7.5 g/dL>3 .0-8.0 g/jS24-7272905. 3-8 .3 g/dL Albumin (test code = 3.8 g/dL 3.5-5 1751-7) A/G ratio (test code = 1.0 0.7-3.8 1759-0) Alkaline phosphatase 109 U/L 35-104 H (test code = 6768-6) AST (test code = 1920-8) 26 U/L 10-35 ALT (test code = 1742-6) 24 U/L 5-50 Total bilirubin (test 0.3 mg/dL 0-1.2 code = 1975-2) Lab Interpretation (test Abnormal code = 82874-3) Ceres MethodistPartial thromboplastin time, [id number] 17:07:56 Test Item Value Reference Range Interpretation Comments PTT (test code = 25.8 23.0- 36.0 [place] [address]-3) unfractionated heparin is61.0-112.0 se conds which corresponds to Anti-Xa0.3-0.7 U/ml. Ceres MethodistProthrombin time with [id number] 17:07:18 Test Item Value Reference Range Interpretation Comments Prothrombin time (test 12.4 11.5- 14.5 sec code = 5902-2) INR (test code = 0.9 The Interna tional 92402-6) Normalized Rati o (INR) is a therapeutic m onitoring tool for patien ts who are stable on oral anticoagulant t herapy. An INR of 2.0-3.0 is suggested for d eep vein thrombosis/pulm onary embolism. Ceres MethodistSpirometry, diffusion, lung [id number] 17:07:25 Test Item Value Reference Range Interpretation [...] Predicted 84.4 % (test code = 5445) Ceres MethodistCT Chest Wo [id number] 12:37:29Hm Interface, Radiology Results 06/15/2019 12:40 PM [...] combination of benign granulomas and intrapulmonary lymph nodes.[facility]-[id number] MethodistPET/CT Skull Base To Mid [id number] 15:20:15 Interface, Radiology Results 05/07/2019 3:23 PM CSTPROCEDURE: [...] resolution, as not all malignancies concentrate FDG. [facility]-[id number] MethodistCT Chest External [id number] 23:20:41This exam was not acquired at a Protestant facility and has not been interpreted by a Protestant Provider. The exam was imported into our imaging system.[facility]
--- OUTSIDE RECORDS SUMMARY | 2020-04-07 11:17 | XMS REPORT | Clinical Summary ---
:1935 Author Organization [facility] Address [address] [place] [address] Care Team Providers Name Role Phone Laureano [...] Encounters Date Type Specialty Care Team Description 04/04/2020 Telephone Cardiothoracic Ivelisse Petty, Surgery MA 04/03/2020 Travel 04/03/2020 Telephone Cardiothoracic Michellesenmitul, Surgery Mihaela Lancaster, HR OPERATIONS ADVISOR 08/04/2019 Telemedicine Cardiothoracic Madi Drummond, Surgery [facility]- Surgery MD portillo Mcgrath, (Primary Dx) Mihaela Lancaster, HR OPERATIONS ADVISOR 08/02/2019 Travel 08/02/2019 Telephone Cardiothoracic Michellesenmitul, Surgery Mihaela Lancaster, HR OPERATIONS ADVISOR 07/23/2019 Telephone Cardiothoracic Ivelisse Petty, Surgery MA 07/22/2019 Telephone Cardiothoracic Meisenbach, Surgery Mihaela Lancaster, HR OPERATIONS ADVISOR 07/20/2019 Telephone Cardiothoracic Michellesenbach, Surgery Mihaela Lancaster, HR OPERATIONS ADVISOR 07/13/2019 Telephone Cardiothoracic Michellesenbach, Surgery Mihaela Lancaster, HR OPERATIONS ADVISOR 07/08/2019 Telephone Cardiothoracic Meisenbach, Surgery Mihaela Lancaster, HR OPERATIONS ADVISOR 07/07/2019 Office Visit Cardiothoracic Alcides, Visit for wou nd Surgery Mihaela Lancaster, HR OPERATIONS ADVISOR check (Primar y Dx) 07/07/2019 Lab Lab Madi Drummond, Granulomatou s lung MD disease (HCC) 07/02/2019 Refill Cardiothoracic Meisenbach, Acute pain Surgery Mihaela Lancaster, HR OPERATIONS ADVISOR 07/02/2019 Refill Cardiothoracic Meisenbach, Acute pain Surgery Mihaela Lancaster, HR OPERATIONS ADVISOR 07/01/2019 Patient Outreach Marii Eddy, MADELEINE 07/01/2019 Telephone Cardiothoracic Meijesus, Granulomatous lung disease (HCC) (Primary Dx); Surgery Mihaela Lancaster, HR OPERATIONS ADVISOR Acute pain 07/01/2019 Telephone General Surgery Madi Drummond MD 06/28/2019 Anesthesia Event Cardiothoracic Cristian Bryant, Surgery Trice Guzmán 06/28/2019 Surgery Cardiothoracic Madi Drummond, RIGHT Surgery ROBOT-ASSISTED, THORACOSCOPIC R IGHT LOWER LOBE WEDG E RESECTION THERAPEUTIC , PERCUTANIOUS NE EDLE LOCALIZATION AN D BIOPSY OF NODUL E, CRYOABLATION 06/28/2019 Hospital Encounter General Internal Madi Drummond So litary pulmonary - Medicine MD nodule 06/30/2019 06/22/2019 Telephone Cardiothoracic Ivelisse Petty Surgery MA 06/21/2019 Telephone Cardiothoracic Alcides, Surgery Mihaela Lancaster NP 06/17/2019 Lab Lab Madi Drummond, Lung nodule; Pre-op testing 06/15/2019 Hospital Encounter Pulmonology Madi Drummond Lung n gonzalo WATT 06/15/2019 Office Visit Cardiothoracic Madi Drummond Lung nodul e (Primary Dx); Surgery Pre-op testing 06/15/2019 Hospital Encounter Radiology Madi Drummond Lung beverly sánchez MD 06/15/2019 Orders Only Cardiothoracic Meisenmitul, Lung nodule ( Primary Dx); Surgery Mihaela Lancaster NP Pre-op testin g 06/14/2019 Telephone Cardiothoracic Lesley [facility] [place] 05/18/2019 Telephone Cardiothoracic Lesley [place], [place] 05/13/2019 Orders Only [facility]acic [facility] [place] [facility] 05/11/2019 Office Visit Cardiothoracic Madi Drummond Lung nodul e Surgery MD (Primary Dx) 05/07/2019 Hospital Encounter Radiology Madi Drummond Lung n odule MD 05/07/2019 Telephone Cardiothoracic Renetta [facility] Chriss[place] 05/04/2019 Hospital Encounter Radiology Madi Drummond MD 05/04/2019 Office Visit Cardiothoracic Madi Drummond Lung aramis bernal Surgery (Primary Dx) 04/30/2019 Telephone Cardiothoracic Renetta [facility] [place] 04/27/2019 Orders Only Cardiothoracic Provider, Jamir Singh MD after 04/07/2019 Immunizations Name Administration Dates Next Due FLUZONE [...] CRYOA BLATION; Surgeon: Mamie Drummond MD; Location: [facility]; Service: oracic; Laterality: Righ t; BRONCHOSCOPY, USING 06/28/2019 Chest/N/A Procedure: F LEXIBLE ELECTROMAGNETIC NAVIGATION [facility]; Surgeon: Madi Drummond MD; Location: [facility] OR; Service: Thoraci c; Laterality: N/A; Medical [...] at Date Recorded Female 05/01/2019 7:52 PM ADULT DAYCARE COORDINATOR COVID-19 Exposure Response Date Recorded In the last month, have you been in contact with No / Unsure 04/03/2020 8:26 AM ADULT DAYCARE COORDINATOR someone who was confirmed or suspected to have Coronavirus / COVID-19? Last Filed Vital Signs Vital Sign Reading Time Taken Comments Blood Pressure 136/70 07/07/2019 10:27 AM ADULT DAYCARE COORDINATOR Pulse 79 07/07/2019 10:27 AM ADULT DAYCARE COORDINATOR Temperature 36.6 C (97.9 F) 07/07/2019 10:27 AM ADULT DAYCARE COORDINATOR Respiratory Rate 17 07/07/2019 10:27 AM ADULT DAYCARE COORDINATOR Oxygen Saturation 96% 07/07/2019 10:27 AM ADULT DAYCARE COORDINATOR Inhaled Oxygen Concentration - - Weight 70.3 kg (155 lb) 07/07/2019 10:27 AM ADULT DAYCARE COORDINATOR Height 157.5 cm (5' 2") 07/07/2019 10:27 AM ADULT DAYCARE COORDINATOR Body Mass Index 28.35 07/07/2019 10:27 AM ADULT DAYCARE COORDINATOR Plan of Treatment Date Type Specialty Care Team Description 04/11/2020 Office Visit Cardiothoracic Surgery Madi Drummond MD [address] [place], [place] [address] [phone] Health Maintenance Due Date Last Done Comments SHINGLES VACCINES (#1) 1985 65+ PNEUMOCOCCAL VACCINE (1 of 1 - PPSV23) 01/21/200004/25, 04/25/2016 INFLUENZA VACCINE Completed 01/30/2020, 02/17/2019 Procedures Procedure Name Priority Date/Time Associated Diagnosis Comme nts TB T-SPOT Routine 07/07/2019 10:14 Granulomatous lung Resul ts for this AM ADULT DAYCARE COORDINATOR disease (HCC) procedure are in the results section. POC GLUCOSE Routine 06/30/2019 8:20 Results for this AM ADULT DAYCARE COORDINATOR procedure are i n the results section. HC COMPLETE BLD COUNT Routine 06/30/2019 6:25 Re sults for this W/AUTO DIFF AM ADULT DAYCARE COORDINATOR procedure are i n the results section. ESTIMATED GFR Routine 06/30/2019 6:21 Results fo r this AM ADULT DAYCARE COORDINATOR procedure are i n the results section. PHOSPHORUS LEVEL Routine 06/30/2019 6:21 Results for this AM ADULT DAYCARE COORDINATOR procedure are i n the results section. MAGNESIUM LEVEL Routine 06/30/2019 6:21 Results for this AM ADULT DAYCARE COORDINATOR procedure are i n the results section. BASIC METABOLIC PANEL Routine 06/30/2019 6:21 Re sults for this AM ADULT DAYCARE COORDINATOR procedure are i n the results section. XR CHEST 1 VW PORTABLE Routine 06/29/2019 3:00 R esults for this PM ADULT DAYCARE COORDINATOR procedure are i n the results section. XR CHEST 1 VW PORTABLE STAT 06/29/2019 11:42 R esults for this AM ADULT DAYCARE COORDINATOR procedure are i n the results section. XR CHEST 1 VW PORTABLE Routine 06/29/2019 6:20 R esults for this AM ADULT DAYCARE COORDINATOR procedure are i n the results section. HC COMPLETE BLD COUNT Routine 06/29/2019 5:35 Re sults for this W/AUTO DIFF AM ADULT DAYCARE COORDINATOR procedure are i n the results section. ESTIMATED GFR Routine 06/29/2019 4:00 Results fo r this AM ADULT DAYCARE COORDINATOR procedure are i n the results section. PHOSPHORUS LEVEL Routine 06/29/2019 4:00 Results for this AM ADULT DAYCARE COORDINATOR procedure are i n the results section. MAGNESIUM LEVEL Routine 06/29/2019 4:00 Results for this AM ADULT DAYCARE COORDINATOR procedure are i n the results section. BASIC METABOLIC PANEL Routine 06/29/2019 4:00 Re sults for this AM ADULT DAYCARE COORDINATOR procedure are i n the results section. POC GLUCOSE Routine 06/28/2019 5:55 Results for this PM ADULT DAYCARE COORDINATOR procedure are i n the results section. XR CHEST 1 VW PORTABLE STAT 06/28/2019 3:38 R esults for this PM ADULT DAYCARE COORDINATOR procedure are i n the results section. SURGICAL PATHOLOGY Routine 06/28/2019 1:57 Resul ts for this REQUEST PM ADULT DAYCARE COORDINATOR procedure are i n the results section. SURGICAL PATHOLOGY Routine 06/28/2019 1:57 Resul ts for this REQUEST PM ADULT DAYCARE COORDINATOR procedure are i n the results section. GLUCOSE LEVEL, SYRINGE STAT 06/28/2019 1:05 R esults for this PM ADULT DAYCARE COORDINATOR procedure are i n the results section. HEMOGLOBIN, SYRINGE STAT 06/28/2019 1:05 Resu lts for this PM ADULT DAYCARE COORDINATOR procedure are i n the results section. IONIZED CALCIUM, STAT 06/28/2019 1:05 Results for this ARTERIAL PM ADULT DAYCARE COORDINATOR procedure are i n the results section. POTASSIUM, SYRINGE STAT 06/28/2019 1:05 Resul ts for this PM ADULT DAYCARE COORDINATOR procedure are i n the results section. SODIUM LEVEL, SYRINGE STAT 06/28/2019 1:05 Re sults for this PM ADULT DAYCARE COORDINATOR procedure are i n the results section. ARTERIAL BLOOD GAS, STAT 06/28/2019 1:05 Resu lts for this CORRECTED PM ADULT DAYCARE COORDINATOR procedure are i n the results section. MO AN ELECTIVE Routine 06/28/2019 12:55 Results f or this ENDOTRACHEAL AIRWAY PM ADULT DAYCARE COORDINATOR procedur e are in the results section. FUNGUS SMEAR Routine 06/28/2019 12:00 Results for this AM ADULT DAYCARE COORDINATOR procedure are i n the results section. AFB STAIN Routine 06/28/2019 12:00 Results for this AM ADULT DAYCARE COORDINATOR procedure are i n the results section. FUNGUS CULTURE Routine 06/28/2019 12:00 Results f or this AM ADULT DAYCARE COORDINATOR procedure are i n the results section. AFB CULTURE Routine 06/27/2019 11:00 Results for this PM ADULT DAYCARE COORDINATOR procedure are i n the results section. PREPARE RBC Routine 06/17/2019 4:20 Results for this PM ADULT DAYCARE COORDINATOR procedure are i n the results section. ESTIMATED GFR Routine 06/17/2019 4:20 Results fo r this PM ADULT DAYCARE COORDINATOR procedure are i n the results section. TYPE AND SCREEN Routine 06/17/2019 4:20 Lung nodule Results for this PM ADULT DAYCARE COORDINATOR Pre-op testing procedure are in the results section. PARTIAL THROMBOPLASTIN Routine 06/17/2019 4:20 Lung nod ule Results for this TIME (PTT) PM ADULT DAYCARE COORDINATOR Pre-op testing procedure are in the results section. PROTHROMBIN TIME WITH Routine 06/17/2019 4:20 Lung nodu le Results for this INR PM ADULT DAYCARE COORDINATOR Pre-op testing procedure are in the results section. COMPREHENSIVE Routine 06/17/2019 4:20 Lung nodule Results for this METABOLIC PANEL PM ADULT DAYCARE COORDINATOR Pre-op testing procedure are in the results section. HC COMPLETE BLD COUNT Routine 06/17/2019 4:20 Lung nodu le Results for this W/AUTO DIFF PM ADULT DAYCARE COORDINATOR Pre-op testing procedure are in the results section. SPIROMETRY, DIFFUSION, Routine 06/15/2019 5:07 Lung nodule R esults for this LUNG VOLUMES PM ADULT DAYCARE COORDINATOR procedure are i n the results section. CT CHEST WO CONTRAST Routine 06/15/2019 11:27 Lung nodule Res ults for this AM ADULT DAYCARE COORDINATOR procedure are i n the results section. PET CT SKULL BASE TO Routine 05/07/2019 2:32 Lung nodule Res ults for this MID THIGH PM ADULT DAYCARE COORDINATOR procedure are i n the results section. POC GLUCOSE Routine 05/07/2019 12:55 Results for this PM ADULT DAYCARE COORDINATOR procedure are i n the results section. CT CHEST EXTERNAL Routine 04/12/2019 9:47 Result s for this STUDY AM ADULT DAYCARE COORDINATOR procedure are i n the results section. CT ANGIOGRAM PE CHEST Routine 04/12/2019 after 04/07/2019 Results TB T-SPOT (07/07/2019 10:14 AM ADULT DAYCARE COORDINATOR) Pathologist Sig nature TB T-SPOT SEE NOTE [...] FOR USE WITH T=SPOT.TB TEST. Performed by: [facility] Molecular Tuberculosis Laboratory [facility] ([id number]) [place], [place] [address] Specimen Blood Performing Organization Address City/[facility] Phon e Number [facility] DEPARTMENT OF PATHOLOGY AND [address] [place] [phone] [facility] REF [facility] POC glucose (06/30/2019 8:20 AM ADULT DAYCARE COORDINATOR)Only the most recent of3 resultswithin the time period is included. Pathologist [facility] nature POC glucose 71 65 - 99 mg/dL [facility] Comment: HOSPITAL Manager Insurance Name: Ayde Lim Device ID: [id number] Chartable: FOR[facility]LY [facility] Notified RN Specimen Performing Organization Address [facility] Phon e Number [facility] DEPARTMENT OF PATHOLOGY AND [address] [place] [address] [phone] [address] CBC with platelet and differential (06/30/2019 6:25 AM ADULT DAYCARE COORDINATOR)Only the most recent of3 resultswithin the time period is included. WBC 12.17 (H) 4.50 - 11.00 [facility] k/uL [facility] RBC 3.80 (L) 4.20 - 5.50 [facility] m/[facility] HGB 11.7 (L) 12.0 - 16.0 [facility] g/dL [facility] HCT 36.1 (L) 37.0 - 47.0 % [facility] MCV 95.0 82.0 - 100.0 [facility] MCH 30.8 27.0 - 34.0 pg [facility] MCHC 32.4 31.0 - 37.0 [facility] gdL [facility] RDW - SD 46.7 37.0 - 55.0 fL [facility] MPV 11.0 8.8 - 13.2 fL [facility] Platelet count 252 150 - 400 k/uL [facility] Nucleated RBC 0.00 /100 WBC [facility] Neutrophils 68.4 39.0 - 69.0 % [facility] Lymphocytes 18.2 (L) 25.0 - 45.0 % [facility] Monocytes 9.0 0.0 - 10.0 % [facility] Eosinophils 3.5 0.0 - 5.0 % [facility] Basophils 0.4 0.0 - 1.0 % [facility] Immature granulocytes 0.5Comment: 0.0 - 1.0 % [facility] "[facility] HOSPITAL granulocytes" (promyelocytes , myelocytes, metamyelocytes ) Specimen Blood Performing Organization Address [facility] Phon e Number [facility] DEPARTMENT OF PATHOLOGY AND [address] [place] [address] [phone] [address] Estimated GFR (06/30/2019 6:21 AM ADULT DAYCARE COORDINATOR)Only the most recent of3 resultswithin the time period is included. Estimated GFR 81 mL/min/1.73 [facility] Comment: m2 HOSPITAL Catergory Units Interpretation G1 [...] 2014. Specimen Plasma specimen Performing Organization Address City/[facility] Phon e Number [facility] DEPARTMENT OF PATHOLOGY AND [address] [place] [address] [phone] [address] Phosphorus level (06/30/2019 6:21 AM ADULT DAYCARE COORDINATOR)Only the most recent of2 resultswithin the time period is included. Pathologist Sig nature Phosphorus 2.4 2.4 - 4.5 mg/dL [facility] L Specimen Plasma specimen Performing Organization Address City/[facility] Phon e Number [facility] DEPARTMENT OF PATHOLOGY AND [address] [place] [address] [phone] [address] Magnesium level (06/30/2019 6:21 AM ADULT DAYCARE COORDINATOR)Only the most recent of2 resultswithin the time period is included. Pathologist Sig nature Magnesium 1.9 1.6 - 2.4 mg/dL [facility] L Specimen Plasma specimen Performing Organization Address [facility] Phon e Number [facility] DEPARTMENT OF PATHOLOGY AND [address] [place], [place] [phone] [address] [address] Basic metabolic panel (06/30/2019 6:21 AM ADULT DAYCARE COORDINATOR)Only the most recent of2 results within the time period is included. Pathologist Sig nature Sodium 138 135 - 148 mEq/L [facility] L Potassium 3.8 3.5 - 5.0 mEq/L [facility] Chloride 103 98 - 112 mEq/L [facility] CO2 28 24 - 31 mEq/L [facility] Anion gap 7@ANIO 7 - 15 mEq/L [facility] BUN 10 8 - 23 mg/dL [facility] Creatinine 0.66 0.50 - 0.90 mg/dL [facility] KECIA Glucose 94 65 - 99 mg/dL [facility] Calcium 8.7 (L) 8.8 - 10.2 mg/dL [facility] Specimen Plasma specimen Performing Organization Address [facility] Phon e Number [facility] DEPARTMENT OF PATHOLOGY AND [address] [place] [address] [address] XR Chest 1 Vw Portable (06/29/2019 3:00 PM ADULT DAYCARE COORDINATOR)Only the most recent of4 results within the time period is included. Specimen Narrative Performed At [facility], 06/29/2019 [facility] Clinical History: Follow-up pneumothorax . Technique: Single, [...] Radiology Results Incoming - 06/29/2019 3:32 PM ADULT DAYCARE COORDINATOR [facility]ING[facility] CHEST, 06/29/2019 Clinical History: Follow-up [...] cervical fusion hardw are. Performing Organization Address City/[facility]/ZIP Code Phon e Number [facility] [address] [place] [phone] Surgical pathology request (06/28/2019 1:57 PM ADULT DAYCARE COORDINATOR)Only the most recent of2 resultswithin the time period is included. [facility] DEPARTMENT OF PATHOLOGY AND GENOMIC MEDICINE Surgical pathology See link below for [facility] DEPARTMENT O F report PDF Lab Report PATHOLOGY AND GENOMIC MEDICINE Result status This is Supplemental [facility] DEPARTMENT OF Report for PATHOLOGY AND [id number] GENOMIC MEDICINE Specimen Performing Organization Address City/[facility]/ZIP Code Phon e Number [facility] DEPARTMENT OF PATHOLOGY AND [address] [place] [phone] [facility] MEDICINE Sodium level, syringe (06/28/2019 1:05 PM ADULT DAYCARE COORDINATOR) Pathologist Sig nature Sodium, syringe 138 135 - 148 mEq/L [facility] Specimen Blood Performing Organization Address City/State/ZIP Code Phon e Number [facility] DEPARTMENT OF PATHOLOGY AND [address] [place] [address] [phone] [address] Potassium, syringe (06/28/2019 1:05 PM ADULT DAYCARE COORDINATOR) Pathologist Sig nature Potassium, syringe 3.6 3.5 - 5.0 mEq/L [facility] Specimen Blood Performing Organization Address City/State/ZIP Code Phon e Number [facility] DEPARTMENT OF PATHOLOGY AND [address] [place] [address] [phone] [address] Ionized calcium, arterial (06/28/2019 1:05 PM ADULT DAYCARE COORDINATOR) Pathologist Sig nature Ionized calcium, 1.02 (L) 1.11 - 1.32 [facility] arterial mmol/L HOSPITAL Specimen Blood Performing Organization Address City/[facility]/ZIP [facility] Phon e Number [facility] DEPARTMENT OF PATHOLOGY AND [address] [place] [address] [phone] [address] Hemoglobin, syringe (06/28/2019 1:05 PM ADULT DAYCARE COORDINATOR) Pathologist Sig nature Hemoglobin, syringe 11.9 (L) 12.0 - 16.0 g/dL [facility] Specimen Blood Performing Organization Address City/[facility] Phon e Number [facility] DEPARTMENT OF PATHOLOGY AND [address] [place] [address] [phone] [address] Glucose level, syringe (06/28/2019 1:05 PM ADULT DAYCARE COORDINATOR) Pathologist Sig nature Glucose, syringe 102 (H) 65 - 99 mg/dL [facility] Specimen Blood Performing Organization Address City/[facility] Phon e Number [facility] DEPARTMENT OF PATHOLOGY AND [address] [place] [address] [phone] [address] Arterial blood gas, corrected (06/28/2019 1:05 PM ADULT DAYCARE COORDINATOR) Pathologist Sig nature pH, arterial 7.46 (H) 7.35 - 7.45 [facility] pCO2, arterial 35 35 - 45 mmHg [facility] pO2, arterial 306 (H) 80 - 90 mmHg [facility] Temperature, Celsius 35.9 Degrees C [facility] O2 saturation, 100 95 - 100 % [facility] arterial HOSPITAL pH, arterial 7.47 [facility] corrected HOSPITAL pCO2, arterial 33 mmHg [facility] corrected HOSPITAL pO2, arterial 301 mmHg [facility] corrected HOSPITAL Base excess, arterial 1 -2 - 2 mEq/L [facility] Specimen Blood Performing Organization Address City/[facility] Phon e Number [facility] DEPARTMENT OF PATHOLOGY AND [address] [place] [address] [phone] [address] Airway (06/28/2019 12:55 PM ADULT DAYCARE COORDINATOR) Narrative Performed At Trice Moseley 06/28/2019 12:57 [...] fiberoptic scope Fungus smear (06/28/2019 12:00 AM ADULT DAYCARE COORDINATOR) Pathologist Sig nature Fungus smear No fungi observed. [facility] Comment: HOSPITAL Specimen Information Specimen Source: Tissue Specimen Site: Lung , RIGHT LOWER LOBE Specimen Tissue Performing Organization Address [facility] Phon e Number [facility] DEPARTMENT OF PATHOLOGY AND [address] [place] [address] AFB stain (06/28/2019 12:00 AM ADULT DAYCARE COORDINATOR) Pathologist Sig nature AFB stain No acid fast bacilli (AFB) seen. [facility] RUVALCABA Comment: HOSPITAL Specimen Information Specimen Source: Tissue Specimen Site: Lung , RIGHT LOWER LOBE Specimen Tissue Performing Organization Address City/[facility] Phon e Number [facility] DEPARTMENT OF PATHOLOGY AND [address] [place] [address] Fungus culture (06/28/2019 12:00 AM ADULT DAYCARE COORDINATOR) Fungus culture No growth after 4 weeks of incubation. [facility] RUVALCABA isolate Comment: HOSPITAL Specimen Information Specimen Source: Tissue Specimen Site: Lung , RIGHT LOWER LOBE Specimen Tissue Performing Organization Address City/[facility] Phon e Number [facility] DEPARTMENT OF PATHOLOGY AND [address] [place] [address] [phone] [address] AFB culture (06/27/2019 11:00 PM ADULT DAYCARE COORDINATOR) Pathologist [facility] AFB culture No growth after 6 weeks of incubation. HO XIANG [facility] isolate Comment: HOSPITAL Specimen Information Specimen Source: Tissue Specimen Site: Lung , RIGHT LOWER LOBE Specimen Tissue Performing Organization Address City/[facility] Phon e Number [facility] DEPARTMENT OF PATHOLOGY AND [address] [place] [address] [phone] [address] Partial thromboplastin time, activated (06/17/2019 4:20 PM ADULT DAYCARE COORDINATOR) Pathologist [facility] PTT 25.8 23.0 - 36.0 [facility] Comment: [facility] PTT therapeutic range for unfractionated heparin is 61.0-112.0 seconds which corresponds to Anti-Xa 0.3-0.7 U/ml. Specimen Blood Performing Organization Address [facility] Phon e Number [facility] DEPARTMENT OF PATHOLOGY AND [address] [place] [address] [phone] [address] Prothrombin time with INR (06/17/2019 4:20 PM ADULT DAYCARE COORDINATOR) Pathologist [facility] Prothrombin time 12.4 11.5 - 14.5 [facility] INR 0.9 [facility] Comment: [facility] International Normalized Ratio (INR) is a [facility] HOSPITAL monitoring tool for patients who are stable on oral anticoagulant therapy. An INR of 2.0-3.0 is suggested for deep vein thrombosis/pulmonary embolism. Specimen Blood Performing Organization Address City/[facility] Phon e Number [facility] DEPARTMENT OF PATHOLOGY AND [address] [place] [address] [phone] [address] Prepare RBC (06/17/2019 4:20 PM ADULT DAYCARE COORDINATOR) Product name Red Blood Cells VERSAILLES -1, Leukored [facility] Unit number [id number] [facility] Product code [id number] [facility] Dispense status Returned to not [facility] Blood expiration date [facility] Blood type code 8400 [facility] Blood type AB POSITIVE [facility] Compatibility Compatible [facility] Product name Red Blood Cells DAMION -1, Leukored [facility] Unit number [id number] [facility] Product code [id number] [facility] Dispense status Returned to BB not [facility] Blood expiration date [facility] Blood type code 8400 [facility] Blood type AB POSITIVE [facility] Compatibility Compatible [facility] Specimen Performing Organization Address City/[facility] Phon e Number [facility] DEPARTMENT OF PATHOLOGY AND [address] [place] [address] [phone] [address] Type and screen (06/17/2019 4:20 PM ADULT DAYCARE COORDINATOR) Pathologist Sig nature ABO grouping AB [facility] Rh type POS [facility] Antibody screen (gel) NEG [facility] Specimen Blood Performing Organization Address [facility] Phon e Number [facility] DEPARTMENT OF PATHOLOGY AND [address] [place] [address] [phone] [address] Comprehensive metabolic panel (06/17/2019 4:20 PM ADULT DAYCARE COORDINATOR) Sodium 139 135 - 148 [facility] mEq/L [facility] Potassium 4.2 3.5 - 5.0 [facility] mEq/L [facility] Chloride 99 98 - 112 mEq/L [facility] CO2 30 24 - 31 mEq/L [facility] Anion gap 10@ANIO 7 - 15 mEq/L [facility] BUN 14 8 - 23 mg/dL [facility] Creatinine 0.58 0.50 - 0.90 [facility] mg/dL HOSPITAL Glucose 98 65 - 99 mg/dL [facility] Calcium 9.8 8.8 - 10.2 [facility] mg/dL HOSPITAL Protein 7.8 6.3 - 8.3 g/dL [facility] Comment: HOSPITAL Ajkzojh2531.6-7.0 g/dL 1 egir5873.4-7.6 g/dL 7 months-5erkn440.1-7.3 g/dL 1-2 qeqhc578.6-7.5 g/dL >3 ovnbs338.0-8.0 g/dL 18-7041468.3-8.3 g/dL Albumin 3.8 3.5 - 5.0 g/dL [facility] A/G ratio 1.0 0.7 - 3.8 [facility] Alkaline phosphatase 109 (H) 35 - 104 U/L [facility] AST 26 10 - 35 U/L [facility] ALT 24 5 - 50 U/L [facility] Total bilirubin 0.3 0.0 - 1.2 [facility] mg/dL HOSPITAL Specimen Plasma specimen Performing Organization Address City/State/ZIP Code Phon e Number [facility] DEPARTMENT OF PATHOLOGY AND [address] [place], [place] [phone] GENOMIC MEDICINE [facility] [address] [place] [address] Spirometry, diffusion, lung volumes (06/15/2019 5:07 PM ADULT DAYCARE COORDINATOR) Pathologist Sig nature FEV1 Pre 2.15 L [...] City/State/ZIP Code Phon e Number [facility] [address] [place] [address] CT Chest Wo Contrast (06/15/2019 11:27 AM ADULT DAYCARE COORDINATOR) Specimen Narrative Performed At EXAMINATION: CT CHEST [...] of benign granulomas and intrapulmonary lymph nodes. [facility]-[id number] Procedure Note Hm Interface, Radiology Results Incoming - 06/15/2019 12:40 PM ADULT DAYCARE COORDINATOR EXAMINATION: CT CHEST WO CONTRAST CLINICAL HISTORY: [...] of benign granulomas and intrapulmonary lymph nodes. [facility]-[id number] Performing Organization Address City/State/ZIP Code Phon e Number [facility] [address] [place] [address] PET/CT Skull Base To Mid Thigh (05/07/2019 2:32 PM ADULT DAYCARE COORDINATOR) Specimen Narrative Performed At PROCEDURE: PET CT SKULL BASE TO MID TH IGH [facility] INDICATION: Evaluate lung nodule. In itial treatment [...] tion, as not all malignancies concentrate FDG. [facility]-[id number] Procedure Note Interface, Radiology Results Incoming - 05/07/2019 3:23 PM ADULT DAYCARE COORDINATOR PROCEDURE: PET CT SKULL BASE TO MID [...] resolution, as not all malignancies concentrate FDG. [facility]-[id number] Performing Organization Address City/State/ZIP Code Phon e Number [facility] [address] [place] [address] CT Chest External Study (04/12/2019 9:47 AM ADULT DAYCARE COORDINATOR) Specimen Narrative Performed At This exam was not acquired at a [facility] facility and has not been [facility] interpreted by a [employer] Provider. T he exam was imported into our imaging system. Performing Organization Address City/[facility]/ZIP Code Phon e Number [facility] [address] [place] [address] CT Angiogram Pe Chest (04/12/2019) Narrative Performed At This result has an attachment that is no t available. after 04/07/2019 Insurance Payer Benefit Plan / Subscriber ID Effective Phone Address T ype Group Dates MEDICARE MEDICARE PART [id number] 1999-[place], [place] Medicare A AND B nt [employer] OF [employer] OF [id number] [facility]
[2020-04-07 12:53] LABS: Absolute Lymphocytes (CBC) 1.7 K/uL (0.7-4.9); Basophils % 0.6 % (0-1.3); Hematocrit 39.4 % (36.0-45.0); Lymphocytes % 19.6 % (15.3-44.8); MPV 9.4 fL (7.6-11.3); RBC Red Blood Cell Count 4.29 M/uL (3.86-4.86)
[2020-04-07] MEDS ORDERED: FENTANYL CITR 100 MCG/2 ML ONE ×2 (13:00→14:47)
[2020-04-07 14:44] LABS: ALT/SGPT 60 U/L (12-78); Alkaline Phosphatase 123 U/L (45-117); BUN Blood Urea Nitrogen 11 mg/dL (7-18); Bicarbonate 29 mmol/L (21-32); Bilirubin Direct < 0.1 mg/dL (0-0.2); Bilirubin Total 0.3 mg/dL (0.2-1.0); Glucose Level 87 mg/dL (74-106); Lipase 158 U/L (73-393); Protein, Total 7.2 g/dL (6.4-8.2); Sodium Level 139 mmol/L (136-145)
[2020-04-07 14:45] LABS: AST/SGOT 34 U/L (15-37); Potassium 4.1 mmol/L (3.5-5.1)
[2020-04-07] MEDS ORDERED: NA CHLORIDE 0.9% 500 ML ONE (15:25)
--- NOTE | 2020-04-07 15:52 | RAD REPORT ---
EXAM DESCRIPTION: CTAbdomen Pelvis W Contrast - 04/07/2020 3:40 pm CLINICAL HISTORY: Abdominal pain. ABD PAIN COMPARISON: Chest For Pe Angio dated 04/02/2020; Chest For Pe Angio dated 01/17/2019 TECHNIQUE: Biphasic CT imaging of the abdomen and pelvis was performed with 100 ml non-ionic IV cont rast. All CT scans are performed using dose optimization technique as appropriate and may include automated exposure control or mA/KV adjustment according to patient size. FINDINGS: Linear subsegmental atelectasis is present in the right lung base. Moderate intrahepatic biliary tree dilatation is seen. The pancreatic duct is mildly dilated. The gal lbladder is absent. Artifact is present in the region the pancreatic head making adequate assessment of the pancreatic head suboptimal. The spleen, right adrenal gland are normal. Left adrenal gland is thickened. No renal mass or hydrone phrosis. Small renal cysts are present. No bowel obstruction, free air, free fluid or abscess. Significant fecal retention is present the col on. The appendix is normal. Sigmoid diverticulosis coli is present without diverticulitis No evidence of significant lymphadenopathy. No suspicious bony findings. IMPRESSION: Moderate intrahepatic, extrahepatic and pancreatic duct dilatation is noted. This can in dicate a mass in the region of the pancreatic head although the pancreatic head region on this study is somewhat suboptimally visualized due to streak artifact. MRI abdomen with MRCP would be suggested for follow-up imaging. Moderate retention of stool throughout the colon is present with a sigmoid diverticulosis coli.
--- NOTE | 2020-04-07 16:20 | EDPHYS ---
Physician Documentation [facility] Name: Parvin Manzo Age: 85 yrs Sex: Female : 1935 Arrival Date: 04/07/2020 Time: 11: Bed 16 Private MD: ED Physician Rj Finnegan HPI: 04/07 13:21 This 85 yrs old Female presents to ER via EMS with complaints of RUQ jr8 Abdominal pain. 13:21 The patient presents with abdominal pain in the right upper quadrant. Onset: The jr8 symptoms/episode began/occurred gradually. The symptoms radiate to right back. Associated signs and symptoms: none. The symptoms are described as intermittent, stabbing. Modifying factors: The symptoms are alleviated by nothing, the symptoms are aggravated by movement. Severity of pain: At its worst the pain was moderate in the emergency department the pain is unchanged. The patient has not experienced similar symptoms in the past. The patient has been recently seen by a physician:. Historical: - Allergies: 11:47 PENICILLINS (Hives); ca1 - Home Meds: 11:47 aspirin 81 mg Oral chew 1 tab once daily [Active]; levothyroxine oral [Active]; ca1 Ranitidine Oral [Active]; - PMHx: 11:47 GERD; Hypothyroidism; ca1 - PSHx: 11:47 bone transplant; back surgical; hip replacement; Cholecystectomy; ca1 - Immunization history:: Adult Immunizations up to date, Flu vaccine is up to date. - Social history:: Smoking status: Patient denies any tobacco usage or history of. ROS: 13:26 Eyes: Negative for injury, pain, redness, and discharge, ENT: Negative for injury, jr8 pain, and discharge, Neck: Negative for injury, pain, and swelling, Cardiovascular: Negative for chest pain, palpitations, and edema, Respiratory: Negative for shortness of breath, cough, wheezing, and pleuritic chest pain, Back: Negative for injury and pain, MS/Extremity: Negative for injury and deformity, Skin: Negative for injury, rash, and discoloration, Neuro: Negative for headache, weakness, numbness, tingling, and seizure. 13:26 Abdomen/GI: Positive for abdominal pain, Negative for nausea, vomiting, and diarrhea, abdominal cramps, abdominal distension. Exam: 13:26 Constitutional: This is a well developed, well nourished patient who is awake, alert, jr8 and in no acute distress. Cardiovascular: Regular rate and rhythm with a normal S1 and S2. No gallops, murmurs, or rubs. Normal PMI, no JVD. No pulse deficits. Respiratory: Lungs have equal breath sounds bilaterally, clear to auscultation and percussion. No rales, rhonchi or wheezes noted. No increased work of breathing, no retractions or nasal flaring. Back: No spinal tenderness. No costovertebral tenderness. Full range of motion. Skin: Warm, dry with normal turgor. Normal color with no rashes, no lesions, and no evidence of cellulitis. MS/ Extremity: Pulses equal, no cyanosis. Neurovascular intact. Full, normal range of motion. Neuro: Awake and alert, GCS 15, oriented to person, place, time, and situation. Cranial nerves II-XII grossly intact. Motor strength 5/5 in all extremities. Sensory grossly intact. Cerebellar exam normal. Normal gait. 13:26 Chest/axilla: Inspection: normal, Palpation: tenderness, that is moderate, of the right lateral anterior chest, that does not reproduce the patient's complaints. 13:26 Abdomen/GI: Inspection: abdomen appears normal, Bowel sounds: active, all quadrants, Palpation: soft, in all quadrants, moderate abdominal tenderness, in the right upper quadrant, mass, is not appreciated, rebound tenderness, is not appreciated, voluntary guarding, is not appreciated, involuntary guarding, is not appreciated, no appreciated organomegaly, Indicators: McBurney's point is not tender, Triplett's sign is negative, Rovsing's sign is negative, Liver: tenderness, is not appreciated. Vital Signs: 11:43 BP 153 / 74; Pulse 71; Resp 16 S; Temp 98.6(TE); Pulse Ox 97% on R/A; Weight 63.5 kg ca1 (R); Height 5 ft. 2 in. (157.48 cm) (R); Pain 8/10; 13:08 BP 145 / 65; Pulse 73; Resp 16 S; Pulse Ox 94% on R/A; ca1 13:50 BP 141 / 62; Pulse 60; Resp 19 S; Pulse Ox 95% on R/A; ca1 14:55 BP 148 / 64; Pulse 65; Resp 16 S; Pulse Ox 96% on R/A; ca1 15:50 BP 137 / 71; Pulse 78; Resp 16 S; Pulse Ox 100% on R/A; ca1 16:40 BP 135 / 64; Pulse 81; Resp 16 S; Pulse Ox 100% on R/A; ca1 11:43 Body Mass Index 25.61 (63.50 kg, 157.48 cm) ca1 MDM: 12:03 Patient medically screened. [facility] 16:16 Data reviewed: vital signs, nurses notes, lab test result(s), radiologic studies, CT jr8 scan. Data interpreted: Pulse oximetry: on room air is 100 %. Interpretation: normal. Counseling: I had a detailed discussion with the patient and/or guardian regarding: the historical points, exam findings, and any diagnostic results supporting the discharge/admit diagnosis, lab results, the need for outpatient follow up, a core carrier, to return to the emergency department if symptoms worsen or persist or if there are any questions or concerns that arise at home. ED course: Detailed discussion with patient about CT findings. That I believe she has two different problems at this time. One being the intrahepatic and pancreatic dilation and the other being some costal neuralgia from the partial lung removal. Recommended MRCP for abdomen and then to f/u with pulmonary thoracic for further evaluation. In the meantime will put on gabapentin for nerve pain . 04/07 12:26 Order name: Basic Metabolic Panel; Complete Time: 14:47 04/07 12:26 Order name: CBC with Diff; Complete Time: 12:56 04/07 12:26 Order name: Hepatic Function; Complete Time: 14:47 04/07 12:26 Order name: Lipase; Complete Time: 14:47 04/07 14:47 Order name: CT Abd/Pelvis - IV Contrast Only; Complete Time: 15:54 04/07 12:26 Order name: IV Saline Lock; Complete Time: 12:45 04/07 12:26 Order name: Labs collected and sent; Complete Time: 12:45 04/07 13:19 Order name: Labs - recollect needed: chemistry; Complete Time: 13:30 iw Administered Medications: 12:48 Drug: fentaNYL (PF) 25 mcg {Note: rass 0.} Route: IVP; Site: left antecubital; ca1 13:30 Follow up: Response: No adverse reaction; Pain is decreased; RASS: Alert and Calm (0) ca1 14:35 Drug: fentaNYL (PF) 25 mcg {Note: rass 0.} Route: IVP; Site: left antecubital; ca1 15:30 Follow up: Response: No adverse reaction; Pain is decreased; RASS: Alert and Calm (0) ca1 15:16 Drug: NS 0.9% 500 ml Route: IV; Rate: bolus; Site: left antecubital; ca1 16:00 Follow up: Response: No adverse reaction; IV Status: Completed infusion; IV Intake: ca1 500ml Disposition: 04/08 08:22 Co-signature as Attending Physician, Rj Finnegan MD I agree with the assessment and [facility] plan of care. Disposition: 04/07/20 16:19 Discharged to Home. Impression: Intercostal neuropathy, Intrahepatic and pancreatic ductal dilation . - Condition is Stable. - Discharge Instructions: Magnetic Resonance Cholangiopancreatogram. - Prescriptions for gabapentin 300 mg Oral capsule - take 1 capsule by ORAL route one time then take 1 capsule twice a day; 60 capsule. - Medication Reconciliation Form, Thank You Letter, Antibiotic Education, Prescription Opioid Use form. - Follow up: Lukas Marr MD; When: 2 - 3 days; Reason: Recheck today's complaints, Continuance of care, Re-evaluation by your physician. - Problem is new. - Symptoms have improved. - Notes: Patient with intrahepatic and pancreatic ductal dilation that needs further assessment with MRCP if possible Signatures: Dispatcher [employer] Rj Butts MD MD cha Williams, Irene, RN RN iw Roszak, Josh, PA PA jr8 Michelle Polanco RN RN ca1 Corrections: (The following items were deleted from the chart) 04/07 16:57 16:19 04/07/2020 16:19 Discharged to Home. Impression: Intercostal neuropathy; ca1 Intrahepatic and pancreatic ductal dilation . Condition is Stable. Forms are Medication Reconciliation Form, Thank You Letter, Antibiotic Education, Prescription Opioid Use. Follow up: Lukas Marr; When: 2 - 3 days; Reason: Recheck today's complaints, Continuance of care, Re-evaluation by your physician. Problem is new. Symptoms have improved. jrColeman
--- NOTE | 2020-04-07 16:20 | ER ---
Nurse's Notes [facility] Name: Parvin Manzo Age: 85 yrs Sex: Female : 1935 Arrival Date: 04/07/2020 Time: 11:26 Bed 16 Private MD: Diagnosis: Intercostal neuropathy;Intrahepatic and pancreatic ductal dilation Presentation: 04/07 11:43 Chief complaint: EMS states: She was here Friday for back pain and RUQ pain, pain meds ca1 given with relief. This morning, woke up to RUQ pain, worse with movement, breathing. Pain eases up with laying down. Denies N/V/D. Coronavirus screen: Client denies travel out of the [place] in the last 14 days. At this time, the client does not indicate any symptoms associated with coronavirus-19. Ebola Screen: Patient negative for fever greater than or equal to 101.5 degrees Fahrenheit, and additional compatible Ebola Virus Disease symptoms Patient denies exposure to infectious person. Patient denies travel to an Ebola-affected area in the 21 days before illness onset. No symptoms or risks identified at this time. Initial Sepsis Screen: Does the patient meet any 2 criteria? No. Patient's initial sepsis screen is negative. Does the patient have a suspected source of infection? No. Patient's initial sepsis screen is negative. Risk Assessment: Do you want to hurt yourself or someone else? Patient reports no desire to harm self or others. Onset of symptoms was April 07, 2020. 11:43 Method Of Arrival: EMS: [facility] ca1 11:43 Acuity: ORI 3 ca1 Triage Assessment: 11:47 General: Appears in no apparent distress. comfortable, Behavior is calm, cooperative, ca1 appropriate for age. Pain: Complains of pain in right upper quadrant Pain currently is 8 out of 10 on a pain scale. Pain began this morning Is intermittent, Alleviated by repositioning, Aggravated by repositioning. EENT: No deficits noted. No signs and/or symptoms were reported regarding the EENT system. Neuro: Level of Consciousness is awake, alert, obeys commands, Oriented to person, place, time, situation. Cardiovascular: Heart tones S1 S2 present Capillary refill < 3 seconds Patient's skin is warm and dry. Cardiovascular: Rhythm is sinus rhythm. Respiratory: Airway is patent Respiratory effort is even, unlabored, Respiratory pattern is regular, symmetrical. GI: Abdomen is flat, non-distended, Bowel sounds present X 4 quads. Abd is soft and non tender X 4 quads. : No signs and/or symptoms were reported regarding the genitourinary system. Derm: Skin is intact, is healthy with good turgor, Skin is pink, warm \T\ dry. Musculoskeletal: Circulation, motion, and sensation intact. Capillary refill < 3 seconds. Historical: - Allergies: 11:47 PENICILLINS (Hives); ca1 - Home Meds: 11:47 aspirin 81 mg Oral chew 1 tab once daily [Active]; levothyroxine oral [Active]; ca1 Ranitidine Oral [Active]; - PMHx: 11:47 GERD; Hypothyroidism; ca1 - PSHx: :47 bone transplant; back surgical; hip replacement; Cholecystectomy; ca1 - Immunization history:: Adult Immunizations up to date, Flu vaccine is up to date. - Social history:: Smoking status: Patient denies any tobacco usage or history of. Screenin:49 Abuse screen: Denies threats or abuse. Denies injuries from another. Nutritional ca1 screening: No deficits noted. Tuberculosis screening: No symptoms or risk factors identified. Fall Risk IV access (20 points). Assessment: 11:49 Reassessment: See triage notes. ca1 13:08 Reassessment: Patient appears in no apparent distress at this time. Patient and/or ca1 family updated on plan of care and expected duration. Pain level reassessed. Patient is alert, oriented x 3, equal unlabored respirations, skin warm/dry/pink. 13:50 Reassessment: Patient appears in no apparent distress at this time. Patient and/or ca1 family updated on plan of care and expected duration. Pain level reassessed. Patient is alert, oriented x 3, equal unlabored respirations, skin warm/dry/pink. 14:55 Reassessment: Patient appears in no apparent distress at this time. Patient and/or ca1 family updated on plan of care and expected duration. Pain level reassessed. Patient is alert, oriented x 3, equal unlabored respirations, skin warm/dry/pink. 15:50 Reassessment: Patient appears in no apparent distress at this time. Patient and/or ca1 family updated on plan of care and expected duration. Pain level reassessed. Patient is alert, oriented x 3, equal unlabored respirations, skin warm/dry/pink. 16:40 Reassessment: Patient appears in no apparent distress at this time. Patient is alert, ca1 oriented x 3, equal unlabored respirations, skin warm/dry/pink. Vital Signs: 11:43 BP 153 / 74; Pulse 71; Resp 16 S; Temp 98.6(TE); Pulse Ox 97% on R/A; Weight 63.5 kg ca1 (R); Height 5 ft. 2 in. (157.48 cm) (R); Pain 8/10; 13:08 BP 145 / 65; Pulse 73; Resp 16 S; Pulse Ox 94% on R/A; ca1 13:50 BP 141 / 62; Pulse 60; Resp 19 S; Pulse Ox 95% on R/A; ca1 14:55 BP 148 / 64; Pulse 65; Resp 16 S; Pulse Ox 96% on R/A; ca1 15:50 BP 137 / 71; Pulse 78; Resp 16 S; Pulse Ox 100% on R/A; ca1 16:40 BP 135 / 64; Pulse 81; Resp 16 S; Pulse Ox 100% on R/A; ca1 11:43 Body Mass Index 25.61 (63.50 kg, 157.48 cm) ca1 ED Course: 11:26 Patient arrived in ED. em 11:46 Triage completed. ca1 11:47 Arm band placed on right wrist. ca1 11:49 Patient has correct armband on for positive identification. Placed in gown. Bed in low ca1 position. Call light in reach. Side rails up X2. monitor technician on. Pulse ox on. NIBP on. Warm blanket given. 12:02 Michelle Polanco, MADELEINE is Primary Nurse. ca1 12:03 Shaheed House PA is PHCP. jr8 12:03 Rj Finnegan MD is Attending Physician. jr8 12:45 No provider procedures requiring assistance completed. Initial lab(s) drawn, by me, ca1 sent to lab. Inserted saline lock: 20 gauge in left antecubital area, using aseptic technique. Blood collected. 13:30 Lab(s) recollected, by me, sent to lab. ca1 15:40 CT Abd/Pelvis - IV Contrast Only In Process Unspecified. EDMS 16:19 Lukas Marr MD is Referral Physician. jr8 16:41 IV discontinued, intact, bleeding controlled, No redness/swelling at site. Pressure ca1 dressing applied. Administered Medications: 12:48 Drug: fentaNYL (PF) 25 mcg {Note: rass 0.} Route: IVP; Site: left antecubital; ca1 13:30 Follow up: Response: No adverse reaction; Pain is decreased; RASS: Alert and Calm (0) ca1 14:35 Drug: fentaNYL (PF) 25 mcg {Note: rass 0.} Route: IVP; Site: left antecubital; ca1 15:30 Follow up: Response: No adverse reaction; Pain is decreased; RASS: Alert and Calm (0) ca1 15:16 Drug: NS 0.9% 500 ml Route: IV; Rate: bolus; Site: left antecubital; ca1 16:00 Follow up: Response: No adverse reaction; IV Status: Completed infusion; IV Intake: ca1 500ml Intake: 16:00 IV: 500ml; Total: 500ml. ca1 Outcome: 16:19 Discharge ordered by MD. mahajan 16:41 Discharged to home ambulatory, via wheelchair, with family. ca1 16:41 Condition: stable 16:41 Discharge instructions given to patient, Instructed on discharge instructions, follow up and referral plans. no drinking with medication, no driving heavy equipment, medication usage, Demonstrated understanding of instructions, follow-up care, medications, Prescriptions given X 1. 16:57 Patient left the ED. ca1 Signatures: Dispatcher [employer] Alejo Gonzalez, RN Shaheed Altman PA PA jrMichelle Chavira RN RN ca1
[2020-04-07 18:56] VITALS: TEMP 98.6
[2020-04-07 19:08] VITALS: O2SAT 100
[2020-04-07 19:09] VITALS: BP 135/64
== END 2020-04-07 16:57 | disposition home or self-care (01) ==
LOC: ER 11:13
DX: G58.0 Intercostal neuropathy (principal); K86.89 Other specified diseases of pancreas; Z88.0 Allergy status to penicillin; E03.9 Hypothyroidism, unspecified; K21.9 Gastro-esophageal reflux disease without esophagitis
CPT/HCPCS: 96361; 85025; 80048; 36415; 80076; 83690; 74177; 96374; 99285; Q9967; J3010 ×2; J7040

== ENCOUNTER 2020-04-16 00:30 | Emergency (ER) | payer OTHER ==
--- OUTSIDE RECORDS SUMMARY | 2020-04-16 00:34 | XMS REPORT | Clinical Summary ---
:1935 Author Organization [facility] Address [address] [place] [address] Care Team Providers Name Role Phone Unavailable Primary Care Provider Unavailable Allergies Active Allergy Reactions Severity Noted Date Comments Penicillins Rash Medium 05/04/2019 Other reaction( s): Other (See Comments) Face turns red Medications Not on file Active Problems Not on file Encounters Date Type Specialty Care Team Description 04/12/2020 Hospital Encounter Computed Tomography Lukas Chin Mass of pancreas MD [facility] [address], [facility] [address] Room 04/12/2020 Outside Orders Central Scheduling Lukas Chin Mass of pancreas (Primary Dx); MD [facility] 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 04/16/2019 Social History Tobacco Use Types Packs/Day Years Used Date Never Assessed Sex Assigned at Date Recorded Not on file Last Filed Vital Signs Vital Sign Reading Time Taken Comments Blood Pressure - - Pulse - - Temperature - - Respiratory Rate - - Oxygen Saturation - - Inhaled Oxygen Concentration - - Weight 64.4 kg (142 lb) 04/12/2020 1:51 PM [facility] Height 157.5 cm (5' 2") 04/12/2020 1:51 PM [facility] Body Mass Index 25.97 04/12/2020 1:51 PM [facility] Plan of Treatment Health Maintenance Due Date Last Done Comments PNEUMOCOCCAL 65+ YRS (1 of 1 - [id number]) 01/21/2000 MEDICARE ANNUAL WELLNESS (YEAR 2 or FIRST YEAR if no 12/25/2000 IPPE) INFLUENZA VACCINE (#1) 2020 02/17/2019 Procedures Procedure Name Priority Date/Time Associated Diagnosis Comme nts CT ABDOMEN/PELVIS Routine 04/12/2020 3:27 PM Mass of pancreas Results for this WITH & WITHOUT IV [facility] procedure are in CONTRAST the results section. POCT-CREATININE Routine 04/12/2020 1:57 PM Resul ts for this [facility] procedure are i n the results section. after 04/16/[address] abdomen/pelvis without & with IV contrast (04/12/2020 3:27 PM [facility]PER OPER[facility]) Specimen Narrative Performed At FINAL REPORT [facility] CT of the abdomen, with and without cont rast, CT of pelvis with contrast Clinical History: Neoplasm: pancreas Technique: CT of the abdomen is performe d before and after intravenous contrast administration. CT of pelvis is performed after intravenous contrast administration. Thi s exam was performed according to our departmental dose optim ization program which includes automated exposure control, adj ustment of the mA and/or kV according to patient's size and/or use o f iterative reconstructive technique. Comparison Film: None Discussion: There is mild scarring or atelectasis at the right lung base. Liver contains a few tiny calcified gran ulomas. A punctate hypervascular nodule at the right hepati c dome is probably a perfusion anomaly or a flash filling hem angioma. No suspicious liver mass is identified. There is moderate de gree of biliary ductal dilatation, CBD measures 12 mm. Status p ost cholecystectomy. No stone or focal narrowing is identified. There is no pancreatic ductal dilatation , or peripancreatic inflammation. Note the pancreatic head a nd uncinate process is suboptimally evaluated due to streak art ifact from patient's spinal hardware. No definite mass lesion is see n. No evidence of vascular narrowing or encasement. Spleen, adrenal glands are unremarkable. Kidneys demonstrate no hydronephrosis, radiopaque stone, or mas s. There are a few tiny hypodensity in the kidneys, too small to definitively characterize, but statistically they are likely to rep resent cysts. No evidence of bowel obstruction, or abn ormal bowel wall thickening. There is sigmoid diverticulosis. Normal appendix. In the pelvis, bladder, uterus and adnex a are unremarkable. No ascites, or lymphadenopathy. There is mild vascular calcification. Bony structures demonstrate degenerative changes, and osteopenia. Definite destructive bony lesion is seen . Status post dorsal fusion at L3-L4, the left pedicle screw of L3 p rojects into the L2-L3 disc space. Impression: Status post cholecystectomy. There is mo derate degree of biliary ductal dilatation. No definite obstructi ve lesion/pancreatic mass is identified on this exam. Note the pancre atic head and uncinate process region is suboptimally evaluated due to streak artifact from patient's spinal hardware. Sigmoid diverticulosis. Signed: Peggy Su MD Report Verified Date/Time: 04/12/2020 16:55:23 Reading Location: [facility] [id number] [facility] Reading Room Procedure Note Interface, External Ris In - 04/12/2020 4:57 PM CHOPPER OPERATOR FINAL REPORT CT of the abdomen, with and without cont rast, CT of pelvis with contrast Clinical History: Neoplasm: pancreas Technique: CT of the abdomen is performe d before and after intravenous contrast administration. CT of pelvis is performed after intravenous contrast administration. Thi s exam was performed according to our departmental dose optim ization program which includes automated exposure control, adj ustment of the mA and/or kV according to patient's size and/or use o f iterative reconstructive technique. Comparison Film: None Discussion: There is mild scarring or atelectasis at the right lung base. Liver contains a few tiny calcified gran ulomas. A punctate hypervascular nodule at the right hepati c dome is probably a perfusion anomaly or a flash filling hem angioma. No suspicious liver mass is identified. There is moderate de gree of biliary ductal dilatation, CBD measures 12 mm. Status p ost cholecystectomy. No stone or focal narrowing is identified. There is no pancreatic ductal dilatation , or peripancreatic inflammation. Note the pancreatic head a nd uncinate process is suboptimally evaluated due to streak art ifact from patient's spinal hardware. No definite mass lesion is see n. No evidence of vascular narrowing or encasement. Spleen, adrenal glands are unremarkable. Kidneys demonstrate no hydronephrosis, radiopaque stone, or mas s. There are a few tiny hypodensity in the kidneys, too small to definitively characterize, but statistically they are likely to rep resent cysts. No evidence of bowel obstruction, or abn ormal bowel wall thickening. There is sigmoid diverticulosis. Normal appendix. In the pelvis, bladder, uterus and adnex a are unremarkable. No ascites, or lymphadenopathy. There is mild vascular calcification. Bony structures demonstrate degenerative changes, and osteopenia. Definite destructive bony lesion is seen . Status post dorsal fusion at L3-L4, the left pedicle screw of L3 p rojects into the L2-L3 disc space. Impression: Status post cholecystectomy. There is mo derate degree of biliary ductal dilatation. No definite obstructi ve lesion/pancreatic mass is identified on this exam. Note the pancre atic head and uncinate process region is suboptimally evaluated due to streak artifact from patient's spinal hardware. Sigmoid diverticulosis. Signed: Peggy Su MD Report Verified Date/Time: 04/12/2020 1 6:55:23 Reading Location: [facility] [id number] [facility] Reading Room Performing Organization Address City/State/Zipcode Phone Number RIS POC-Creatinine (04/12/2020 1:57 PM CHOPPER OPERATOR) POC-Creatinine 0.6 0.6 - 1.3 [facility] Comment: mg/dL [facility] MEDICAL : TESTED AT [facility] [address] [facility] [phone] CENTER : Behavioral Geneticist/[employer]idder Runner ID = [id number] for XENIA NG POC-EGFR 95 mL/min/1.73M2 [facility] Specimen Blood Performing Organization Address City/State/Zipcode Phone Number [facility] [address] [place] [address] CENTER after 04/16/2019 Insurance Payer Benefit Plan / Subscriber ID Effective Dates Phone Addre ss Type Group MEDICARE MEDICARE A B [id number] 1999-Present Medicare [employer] [place] [employer] [place] [id number]-Present [employer] SUPPLEMENT/INDIV IDUAL ([place]) [place] [address]
--- OUTSIDE RECORDS SUMMARY | 2020-04-16 00:34 | XMS REPORT | Clinical Summary ---
:1935 Author Organization [facility] Address [address] [place] [address] Care Team Providers Name Role Phone Laureano [...] Encounters Date Type Specialty Care Team Description 04/10/2020 Telephone Cardiothoracic Ivelisse Petty, Surgery MA 04/04/2020 Telephone Cardiothoracic Ivelisse Petty, Surgery MA 04/03/2020 Travel 04/03/2020 Telephone Cardiothoracic Gregorybach, Surgery Mihaela Lancaster, AUTOMATION CONSULTANT 08/04/2019 Telemedicine Cardiothoracic Madi Drummond, Surgery [facility]- Surgery MD portillo Mcgrath, (Primary Dx) Mihaela Lancaster, AUTOMATION CONSULTANT 08/02/2019 Travel 08/02/2019 Telephone Cardiothoracic Alcides, Surgery Mihaela Lancaster, AUTOMATION CONSULTANT 07/23/2019 Telephone Cardiothoracic Ivelisse Petty, Surgery MA 07/22/2019 Telephone Cardiothoracic Michellesenmitul, Surgery Mihaela Lancaster, AUTOMATION CONSULTANT 07/20/2019 Telephone Cardiothoracic Michellesenmitul, Surgery Mihaela Lancaster, AUTOMATION CONSULTANT 07/13/2019 Telephone Cardiothoracic Meisenbach, Surgery Mihaela Lancaster, AUTOMATION CONSULTANT 07/08/2019 Telephone Cardiothoracic Meisenbach, Surgery Mihaela Lancaster, AUTOMATION CONSULTANT 07/07/2019 Office Visit Cardiothoracic Meijesus, Visit for wou nd Surgery Mihaela Lancaster, AUTOMATION CONSULTANT check (Primar y Dx) 07/07/2019 Lab Lab Madi Drummond, Granulomatou s lung MD disease (HCC) 07/02/2019 Refill Cardiothoracic Meisenbach, Acute pain Surgery Mihaela Lancaster, AUTOMATION CONSULTANT 07/02/2019 Refill Cardiothoracic Meisenbach, Acute pain Surgery Mihaela Lancaster, AUTOMATION CONSULTANT 07/01/2019 Patient Outreach Marii Eddy, MADELEINE 07/01/2019 Telephone Cardiothoracic Meijesus, Granulomatous lung disease (HCC) (Primary Dx); Surgery Mihaela Lancaster, AUTOMATION CONSULTANT Acute pain 07/01/2019 Telephone General Surgery Madi Drummond MD 06/28/2019 Anesthesia Event Cardiothoracic Cristian Bryant, Surgery Trice Guzmán 06/28/2019 Surgery Cardiothoracic Hoda, Min Peter, RIGHT Surgery ROBOT-ASSISTED, THORACOSCOPIC R IGHT LOWER LOBE WEDG E RESECTION THERAPEUTIC , PERCUTANIOUS NE EDLE LOCALIZATION AN D BIOPSY OF NODUL E, CRYOABLATION 06/28/2019 Hospital Encounter General Internal Madi Drummond, So litary pulmonary - Medicine MD nodule 06/30/2019 06/22/2019 Telephone Cardiothoracic Ivelisse Petty, Surgery MA 06/21/2019 Telephone Cardiothoracic Alcides, Surgery Mihaela Lancaster AUTOMATION CONSULTANT 06/17/2019 Lab Lab Madi Drummond, Lung nodule; Pre-op testing 06/15/2019 Hospital Encounter Pulmonology Madi Drummond Lung n gonzalo WATT 06/15/2019 Office Visit Cardiothoracic Madi Drummond Lung nodtessy bernal (Primary Dx); Surgery Pre-op testing 06/15/2019 Hospital Encounter Radiology Madi Drummond Lung n gonzalo WATT 06/15/2019 Orders Only Cardiothoracic Meijesus, Lung nodule ( Primary Dx); Surgery Mihaela Lancaster NP Pre-op testin g 06/14/2019 Telephone Cardiothoracic Jamir Sutton MA 05/18/2019 Telephone Cardiothoracic Jamir Sutton MA 05/13/2019 Orders Only Cardiothoracic Lesley, Lung nodule Surgery JULIET Zhang (Primary Dx) 05/11/2019 Office Visit Cardiothoracic Madi Drummond Lung nodtessy bernal Surgery (Primary Dx) 05/07/2019 Hospital Encounter Radiology Madi Drummond Lung n odule MD 05/07/2019 Telephone Cardiothoracic Jamir Jackson MA 05/04/2019 Hospital Encounter Radiology Madi Drummond MD 05/04/2019 Office Visit Cardiothoracic Madi Drummond Lung nodtessy bernal Surgery (Primary Dx) 04/30/2019 Telephone Cardiothoracic Jamir Jackson MA 04/27/2019 Orders Only Cardiothoracic Provider, Jamir Singh MD after 04/16/2019 Immunizations Name Administration Dates Next Due FLUZONE [...] CRYOA BLATION; Surgeon: Mamie Drummond MD; Location: [facility]; Service: oracic; Laterality: Righ t; BRONCHOSCOPY, USING 06/28/2019 Chest/N/A Procedure: F LEXIBLE ELECTROMAGNETIC NAVIGATION [facility] HOSCOPY; Surgeon: Madi Drummond MD; Location: [facility] OR; Service: Thoraci c; Laterality: [...] Date Former Smoker Cigarettes 0 2 Quit: 1945 Smokeless Tobacco: Never Used Comments: Smoked four years in early twe nties Alcohol Use Drinks/Week oz/Week Comments Not Currently Occasional wine. 2 to 3 glasses a month. Sex Assigned at Date Recorded Female 05/01/2019 7:52 PM RIVETER COVID-19 Exposure Response Date Recorded In the last month, have you been in contact with No / Unsure 04/03/2020 8:26 AM RIVETER someone who was confirmed or suspected to have Coronavirus / COVID-19? Last Filed Vital Signs Vital Sign Reading Time Taken Comments Blood Pressure 136/70 07/07/2019 10:27 AM RIVETER Pulse 79 07/07/2019 10:27 AM RIVETER Temperature 36.6 C (97.9 F) 07/07/2019 10:27 AM RIVETER Respiratory Rate 17 07/07/2019 10:27 AM RIVETER Oxygen Saturation 96% 07/07/2019 10:27 AM RIVETER Inhaled Oxygen Concentration - - Weight 70.3 kg (155 lb) 07/07/2019 10:27 AM RIVETER Height 157.5 cm (5' 2") 07/07/2019 10:27 AM RIVETER Body Mass Index 28.35 07/07/2019 10:27 AM RIVETER Plan of Treatment Health Maintenance Due Date Last Done Comments SHINGLES VACCINES (#1) 1985 65+ PNEUMOCOCCAL VACCINE (1 of 1 - PPSV23) 01/21/200004/25, 04/25/2016 INFLUENZA VACCINE Completed 01/30/2020, 02/17/2019 Procedures Procedure Name Priority Date/Time Associated Diagnosis Comme nts TB T-SPOT Routine 07/07/2019 10:14 Granulomatous lung Resul ts for this AM RIVETER disease (HCC) procedure are in the results section. POC GLUCOSE Routine 06/30/2019 8:20 Results for this AM RIVETER procedure are i n the results section. HC COMPLETE BLD COUNT Routine 06/30/2019 6:25 Re sults for this W/AUTO DIFF AM RIVETER procedure are i n the results section. ESTIMATED GFR Routine 06/30/2019 6:21 Results fo r this AM RIVETER procedure are i n the results section. PHOSPHORUS LEVEL Routine 06/30/2019 6:21 Results for this AM RIVETER procedure are i n the results section. MAGNESIUM LEVEL Routine 06/30/2019 6:21 Results for this AM RIVETER procedure are i n the results section. BASIC METABOLIC PANEL Routine 06/30/2019 6:21 Re sults for this AM RIVETER procedure are i n the results section. XR CHEST 1 VW PORTABLE Routine 06/29/2019 3:00 R esults for this PM RIVETER procedure are i n the results section. XR CHEST 1 VW PORTABLE STAT 06/29/2019 11:42 R esults for this AM RIVETER procedure are i n the results section. XR CHEST 1 VW PORTABLE Routine 06/29/2019 6:20 R esults for this AM RIVETER procedure are i n the results section. HC COMPLETE BLD COUNT Routine 06/29/2019 5:35 Re sults for this W/AUTO DIFF AM RIVETER procedure are i n the results section. ESTIMATED GFR Routine 06/29/2019 4:00 Results fo r this AM RIVETER procedure are i n the results section. PHOSPHORUS LEVEL Routine 06/29/2019 4:00 Results for this AM RIVETER procedure are i n the results section. MAGNESIUM LEVEL Routine 06/29/2019 4:00 Results for this AM RIVETER procedure are i n the results section. BASIC METABOLIC PANEL Routine 06/29/2019 4:00 Re sults for this AM RIVETER procedure are i n the results section. POC GLUCOSE Routine 06/28/2019 5:55 Results for this PM RIVETER procedure are i n the results section. XR CHEST 1 VW PORTABLE STAT 06/28/2019 3:38 R esults for this PM RIVETER procedure are i n the results section. SURGICAL PATHOLOGY Routine 06/28/2019 1:57 Resul ts for this REQUEST PM RIVETER procedure are i n the results section. SURGICAL PATHOLOGY Routine 06/28/2019 1:57 Resul ts for this REQUEST PM RIVETER procedure are i n the results section. GLUCOSE LEVEL, SYRINGE STAT 06/28/2019 1:05 R esults for this PM RIVETER procedure are i n the results section. HEMOGLOBIN, SYRINGE STAT 06/28/2019 1:05 Resu lts for this PM RIVETER procedure are i n the results section. IONIZED CALCIUM, STAT 06/28/2019 1:05 Results for this ARTERIAL PM RIVETER procedure are i n the results section. POTASSIUM, SYRINGE STAT 06/28/2019 1:05 Resul ts for this PM RIVETER procedure are i n the results section. SODIUM LEVEL, SYRINGE STAT 06/28/2019 1:05 Re sults for this PM RIVETER procedure are i n the results section. ARTERIAL BLOOD GAS, STAT 06/28/2019 1:05 Resu lts for this CORRECTED PM RIVETER procedure are i n the results section. TN AN ELECTIVE Routine 06/28/2019 12:55 Results f or this ENDOTRACHEAL AIRWAY PM RIVETER procedur e are in the results section. FUNGUS SMEAR Routine 06/28/2019 12:00 Results for this AM RIVETER procedure are i n the results section. AFB STAIN Routine 06/28/2019 12:00 Results for this AM RIVETER procedure are i n the results section. FUNGUS CULTURE Routine 06/28/2019 12:00 Results f or this AM RIVETER procedure are i n the results section. AFB CULTURE Routine 06/27/2019 11:00 Results for this PM RIVETER procedure are i n the results section. PREPARE RBC Routine 06/17/2019 4:20 Results for this PM RIVETER procedure are i n the results section. ESTIMATED GFR Routine 06/17/2019 4:20 Results fo r this PM RIVETER procedure are i n the results section. TYPE AND SCREEN Routine 06/17/2019 4:20 Lung nodule Results for this PM RIVETER Pre-op testing procedure are in the results section. PARTIAL THROMBOPLASTIN Routine 06/17/2019 4:20 Lung nod ule Results for this TIME (PTT) PM RIVETER Pre-op testing procedure are in the results section. PROTHROMBIN TIME WITH Routine 06/17/2019 4:20 Lung nodu le Results for this INR PM RIVETER Pre-op testing procedure are in the results section. COMPREHENSIVE Routine 06/17/2019 4:20 Lung nodule Results for this METABOLIC PANEL PM RIVETER Pre-op testing procedure are in the results section. HC COMPLETE BLD COUNT Routine 06/17/2019 4:20 Lung nodu le Results for this W/AUTO DIFF PM RIVETER Pre-op testing procedure are in the results section. SPIROMETRY, DIFFUSION, Routine 06/15/2019 5:07 Lung nodule R esults for this LUNG VOLUMES PM RIVETER procedure are i n the results section. CT CHEST WO CONTRAST Routine 06/15/2019 11:27 Lung nodule Res ults for this AM RIVETER procedure are i n the results section. PET CT SKULL BASE TO Routine 05/07/2019 2:32 Lung nodule Res ults for this MID THIGH PM RIVETER procedure are i n the results section. POC GLUCOSE Routine 05/07/2019 12:55 Results for this PM RIVETER procedure are i n the results section. after 04/16/2019 Results TB T-SPOT (07/07/2019 10:14 AM RIVETER) Pathologist Sig nature TB T-SPOT SEE NOTE [...] FOR USE WITH T=SPOT.TB TEST. Performed by: [facility] Molecular Tuberculosis Laboratory [facility] ([id number]) [place], [place] [address] Specimen Blood Performing Organization Address City/[facility] Phon e Number [facility] DEPARTMENT OF PATHOLOGY AND [address] [place], [place] [address] GENOMIC MEDICINE [facility] REF LAB POC glucose (06/30/2019 8:20 AM RIVETER)Only the most recent of3 resultswithin the time period is included. [facility] Sig nature POC glucose 71 65 - 99 mg/dL [facility] Comment: HOSPITAL Chiropractor Sole Practitioner Name: Ayde Lim Device ID: [id number] Chartable: [facility] Notified RN Specimen Performing Organization Address City/[facility] Phon e Number [facility] DEPARTMENT OF PATHOLOGY AND [address] [place] [address] [phone] [address] CBC with platelet and differential (06/30/2019 6:25 AM RIVETER)Only the most recent of3 resultswithin the time period is included. WBC 12.17 (H) 4.50 - 11.00 [facility] k/uL HOSPITAL RBC 3.80 (L) 4.20 - 5.50 [facility] m/uL [facility] HGB 11.7 (L) 12.0 - 16.0 [facility] g/dL [facility] HCT 36.1 (L) 37.0 - 47.0 % [facility] MCV 95.0 82.0 - 100.0 [facility] MCH 30.8 27.0 - 34.0 pg [facility] MCHC 32.4 31.0 - 37.0 [facility] RDW - SD 46.7 37.0 - 55.0 fL [facility] MPV 11.0 8.8 - 13.2 fL [facility] Platelet count 252 150 - 400 k/uL [facility] Nucleated RBC 0.00 /100 WBC [facility] Neutrophils 68.4 39.0 - 69.0 % [facility] Lymphocytes 18.2 (L) 25.0 - 45.0 % [facility] Monocytes 9.0 0.0 - 10.0 % [facility] Eosinophils 3.5 0.0 - 5.0 % [facility] Basophils 0.4 0.0 - 1.0 % [facility] Immature granulocytes 0.5Comment: 0.0 - 1.0 % [facility] "Immature HOSPITAL granulocytes" (promyelocytes , myelocytes, metamyelocytes ) Specimen Blood Performing Organization Address City/[facility] Phon e Number [facility] DEPARTMENT OF PATHOLOGY AND [address] [place] [address] [phone] [address] Estimated GFR (06/30/2019 6:21 AM RIVETER)Only the most recent of3 resultswithin the time period is included. Estimated GFR 81 mL/min/1.73 [facility] Comment: m2 HOSPITAL Catergory Units Interpretation G1 [...] 2014. Specimen Plasma specimen Performing Organization Address [facility] Phon e Number [facility] DEPARTMENT OF PATHOLOGY AND [address] [place] [phone] Phosphorus level (06/30/2019 6:21 AM RIVETER)Only the most recent of2 resultswithin the time period is included. Pathologist Sig nature Phosphorus 2.4 2.4 - 4.5 mg/dL [facility] L Specimen Plasma specimen Performing Organization Address City/[facility] Phon e Number [facility] DEPARTMENT OF PATHOLOGY AND [address] [place] [address] [phone] [address] Magnesium level (06/30/2019 6:21 AM RIVETER)Only the most recent of2 resultswithin the time period is included. Pathologist Sig nature Magnesium 1.9 1.6 - 2.4 mg/dL [facility] L Specimen Plasma specimen Performing Organization Address City/[facility] Phon e Number [facility] DEPARTMENT OF PATHOLOGY AND [address] [place] [address] [phone] [address] Basic metabolic panel (06/30/2019 6:21 AM RIVETER)Only the most recent of2 results within the time period is included. Pathologist Sig nature Sodium 138 135 - 148 mEq/L [facility] Potassium 3.8 3.5 - 5.0 mEq/L [facility] Chloride 103 98 - 112 mEq/L [facility] CO2 28 24 - 31 mEq/L [facility] Anion gap 7@ANIO 7 - 15 mEq/L [facility] BUN 10 8 - 23 mg/dL [facility] Creatinine 0.66 0.50 - 0.90 mg/dL [facility] Glucose 94 65 - 99 mg/dL [facility] Calcium 8.7 (L) 8.8 - 10.2 mg/dL [facility] Specimen Plasma specimen Performing Organization Address City/State/ZIP Code Phon e Number [facility] DEPARTMENT OF PATHOLOGY AND [address] [place] [phone] XR Chest 1 Vw Portable (06/29/2019 3:00 PM RIVETER)Only the most recent of4 results within the [...] Radiology Results Incoming - 06/29/2019 3:32 PM RIVETER SINGLE VIEW CHEST, 06/29/2019 Clinical History: Follow-up [...] cervical fusion hardw are. Performing Organization Address City/[facility]/ZIP Code Phon e Number [facility] [address] [place] [phone] Surgical pathology request (06/28/2019 1:57 PM RIVETER)Only the most recent of2 resultswithin the time period is included. [facility] DEPARTMENT OF PATHOLOGY AND GENOMIC MEDICINE Surgical pathology See link below for [facility] DEPARTMENT O F report PDF Lab Report PATHOLOGY AND GENOMIC MEDICINE Result status This is Supplemental [facility] DEPARTMENT OF Report for PATHOLOGY AND [id number] GENOMIC MEDICINE Specimen Performing Organization Address [facility] Phon e Number [facility] DEPARTMENT OF PATHOLOGY AND [address] [place] [address] 0 [facility] MEDICINE Sodium level, syringe (06/28/2019 1:05 PM RIVETER) Pathologist Sig nature Sodium, syringe 138 135 - 148 mEq/L [facility] Specimen Blood Performing Organization Address City/[facility]/ZIP [facility] Phon e Number [facility] DEPARTMENT OF PATHOLOGY AND [address] [place] [address] [phone] [address] Potassium, syringe (06/28/2019 1:05 PM RIVETER) Pathologist Sig nature Potassium, syringe 3.6 3.5 - 5.0 mEq/L [facility] Specimen Blood Performing Organization Address City/[facility]/ZIP Code Phon e Number [facility] DEPARTMENT OF PATHOLOGY AND [address] [place] [address] [phone] [address] Ionized calcium, arterial (06/28/2019 1:05 PM RIVETER) Pathologist Sig nature Ionized calcium, 1.02 (L) 1.11 - 1.32 [facility] arterial mmol/L HOSPITAL Specimen Blood Performing Organization Address City/[facility]/ZIP [facility] Phon e Number [facility] DEPARTMENT OF PATHOLOGY AND [address] [place] [address] [phone] [address] Hemoglobin, syringe (06/28/2019 1:05 PM RIVETER) Pathologist Sig nature Hemoglobin, syringe 11.9 (L) 12.0 - 16.0 g/dL [facility] Specimen Blood Performing Organization Address City/[facility]/ZIP [facility] Phon e Number [facility] DEPARTMENT OF PATHOLOGY AND [address] [place] [address] [phone] [address] Glucose level, syringe (06/28/2019 1:05 PM RIVETER) Pathologist Sig nature Glucose, syringe 102 (H) 65 - 99 mg/dL [facility] Specimen Blood Performing Organization Address City/[facility] Phon e Number [facility] DEPARTMENT OF PATHOLOGY AND [address] [place] [address] [address] Arterial blood gas, corrected (06/28/2019 1:05 PM RIVETER) Pathologist Sig nature pH, arterial 7.46 (H) 7.35 - 7.45 [facility] pCO2, arterial 35 35 - 45 mmHg [facility] pO2, arterial 306 (H) 80 - 90 mmHg [facility] Temperature, Celsius 35.9 Degrees C [facility] O2 saturation, 100 95 - 100 % [facility] arterial HOSPITAL pH, arterial 7.47 [facility] corrected HOSPITAL pCO2, arterial 33 mmHg [facility] corrected HOSPITAL pO2, arterial 301 mmHg [facility] HOSPITAL Base excess, arterial 1 -2 - 2 mEq/L [facility] Specimen Blood Performing Organization Address City/[facility] Phon e Number [facility] DEPARTMENT OF PATHOLOGY AND [address] [place] [phone] Airway (06/28/2019 12:55 PM RIVETER) Narrative Performed At Trice Moseley 06/28/2019 12:57 [...] fiberoptic scope Fungus smear (06/28/2019 12:00 AM RIVETER) Pathologist Sig nature Fungus smear No fungi observed. DAMION RUVALCABA Comment: HOSPITAL Specimen Information Specimen Source: Tissue Specimen Site: Lung , RIGHT LOWER LOBE Specimen Tissue Performing Organization Address City/[facility] Phon e Number [facility] DEPARTMENT OF PATHOLOGY AND [address] [place] [address] [address] AFB stain (06/28/2019 12:00 AM RIVETER) Pathologist Sig nature AFB stain No acid fast bacilli (AFB) seen. DAMION RUVALCABA Comment: HOSPITAL Specimen Information Specimen Source: Tissue Specimen Site: Lung , RIGHT LOWER LOBE Specimen Tissue Performing Organization Address City/[facility] Phon e Number [facility] DEPARTMENT OF PATHOLOGY AND [address] [place] [address] [phone] [address] Fungus culture (06/28/2019 12:00 AM RIVETER) Fungus culture No growth after 4 weeks of incubation. DAMION RUVALCABA isolate Comment: HOSPITAL Specimen Information Specimen Source: Tissue Specimen Site: Lung , RIGHT LOWER LOBE Specimen Tissue Performing Organization Address City/[facility] Phon e Number [facility] DEPARTMENT OF PATHOLOGY AND [address] [place] [address] [phone] [address] AFB culture (06/27/2019 11:00 PM RIVETER) AFB culture No growth after 6 weeks of incubation. KALIE RUVALCABA isolate Comment: HOSPITAL Specimen Information Specimen Source: Tissue Specimen Site: Lung , RIGHT LOWER LOBE Specimen Tissue Performing Organization Address City/State/ZIP Code Phon e Number [facility] DEPARTMENT OF PATHOLOGY AND [address] [place] [address] [phone] [address] Partial thromboplastin time, activated (06/17/2019 4:20 PM RIVETER) PTT 25.8 23.0 - 36.0 [facility] Comment: [facility] PTT therapeutic range for unfractionated heparin is 61.0-112.0 seconds which corresponds to Anti-Xa 0.3-0.7 U/ml. Specimen Blood Performing Organization Address City/State/ZIP Code Phon e Number [facility] DEPARTMENT OF PATHOLOGY AND [address] [place] [address] [phone] [address] Prothrombin time with INR (06/17/2019 4:20 PM RIVETER) Pathologist [facility] Prothrombin time 12.4 11.5 - 14.5 [facility] INR 0.9 [place] Comment: JORDON The International Normalized Ratio (INR) is a [facility] monitoring tool for patients who are stable on oral anticoagulant therapy. An INR of 2.0-3.0 is suggested for deep vein thrombosis/pulmonary embolism. Specimen Blood Performing Organization Address City/[facility]/ZIP [facility] Phon e Number [facility] DEPARTMENT OF PATHOLOGY AND [address] [place] [address] [phone] [address] Prepare RBC (06/17/2019 4:20 PM RIVETER) Product name Red Blood Cells [place] [address], Leukored [facility] Unit number [id number] [facility] Product code [id number] [facility] Dispense status Returned to BB not [facility] Blood expiration date [facility] Blood type code 8400 [facility] Blood type AB POSITIVE [facility] Compatibility Compatible [facility] Product name Red Blood Cells [place] [address], [facility] Unit number [id number] [facility] Product code [id number] [facility] Dispense status Returned to BB not [facility] Blood expiration date [id number] [facility] Blood type code 8400 [facility] Blood type AB POSITIVE [facility] Compatibility Compatible [facility] Specimen Performing Organization Address City/[facility] Phon e Number [facility] DEPARTMENT OF PATHOLOGY AND [address] [place] [address] [phone] GENOMIC MEDICINE [facility] [address] [place] [address] Type and screen (06/17/2019 4:20 PM RIVETER) Pathologist Sig nature ABO grouping AB [facility] Rh type POS [facility] Antibody screen (gel) NEG [facility] Specimen Blood Performing Organization Address City/[facility] Phon e Number [facility] DEPARTMENT OF PATHOLOGY AND [address] [place] [address] [phone] [address] Comprehensive metabolic panel (06/17/2019 4:20 PM RIVETER) Sodium 139 135 - 148 [facility] mEq/L [facility] Potassium 4.2 3.5 - 5.0 [facility] mEq/L [facility] Chloride 99 98 - 112 mEq/L [facility] CO2 30 24 - 31 mEq/L [facility] Anion gap 10@ANIO 7 - 15 mEq/L [facility] BUN 14 8 - 23 mg/dL [facility] Creatinine 0.58 0.50 - 0.90 [facility] mg/dL [facility] Glucose 98 65 - 99 mg/dL [facility] Calcium 9.8 8.8 - 10.2 [facility] mg/dL [facility] Protein 7.8 6.3 - 8.3 g/dL [facility] Comment: HOSPITAL Gghkfzz8037.6-7.0 g/dL 1 yfhd7473.4-7.6 g/dL 7 months-8kkrg197.1-7.3 g/dL 1-2 eyqym886.6-7.5 g/dL >3 .0-8.0 g/dL 18-2146884.3-8.3 g/dL Albumin 3.8 3.5 - 5.0 g/dL [facility] A/G ratio 1.0 0.7 - 3.8 [facility] Alkaline phosphatase 109 (H) 35 - 104 U/L [facility] AST 26 10 - 35 U/L [facility] ALT 24 5 - 50 U/L [facility] Total bilirubin 0.3 0.0 - 1.2 [facility] mg/dL HOSPITAL Specimen Plasma specimen Performing Organization Address City/State/ZIP Code Phon e Number [facility] DEPARTMENT OF PATHOLOGY AND [address] [place] [address] [phone] GENOMIC MEDICINE [facility] [address] [place] [phone] Spirometry, diffusion, lung volumes (06/15/2019 5:07 PM RIVETER) Pathologist Sig nature FEV1 Pre 2.15 L [...] City/State/ZIP Code Phon e Number [facility] [address] [place] [address] CT Chest Wo Contrast (06/15/2019 11:27 AM RIVETER) Specimen Narrative Performed At EXAMINATION: CT CHEST [...] of benign granulomas and intrapulmonary lymph nodes. [facility]-[id number] Procedure Note Hm Interface, Radiology Results Incoming - 06/15/2019 12:40 PM RIVETER EXAMINATION: CT CHEST WO CONTRAST CLINICAL HISTORY: [...] of benign granulomas and intrapulmonary lymph nodes. [facility]-[id number] Performing Organization Address City/State/ZIP Code Phon e Number [facility] [address] [place] [address] PET/CT Skull Base To Mid Thigh (05/07/2019 2:32 PM RIVETER) Specimen Narrative Performed At PROCEDURE: PET CT SKULL BASE TO MID TH [facility] INDICATION: Evaluate lung nodule. In itial [...] tion, as not all malignancies concentrate FDG. [facility]-[id number] Procedure Note Interface, Radiology Results Incoming - 05/07/2019 3:23 PM RIVETER PROCEDURE: PET CT SKULL BASE TO MID [...] resolution, as not all malignancies concentrate FDG. [facility]-[id number] Performing Organization Address City/State/ZIP Code Phon e Number [facility] [address] [place] [address] after 04/16/2019 Insurance Payer Benefit Plan / Subscriber ID Effective Phone Address T ype Group Dates MEDICARE MEDICARE PART [id number] 1999-[place], [place] Medicare A AND B nt [employer] [id number] 2012-[facility] Sheila smith
--- OUTSIDE RECORDS SUMMARY | 2020-04-16 00:35 | XMS REPORT | Continuity of Care Document ---
:1935 Author Organization [facility] t Address [address] [place] [address] Care Team Providers Name Role Phone Juwan WATT Primary Care Physician Sampson Chin MD Attending Clinician [address], [address] Room Attending Clinician Unavailable SAMPSON CHIN Attending Clinician Unavailable Jovanny CHUNG Attending Clinician Unavailable Anisha Mcgrath NP Attending Clinician Cornelius Drummond MD Attending Clinician Angel SALVADOR Attending Clinician Unavailable Renée Bryant MD Attending Clinician Pradip Attending Clinician Lesley CHUNG Attending Clinician Unavailable Renetta CHUNG Attending Clinician Unavailable Román WATT Attending Clinician HODA Admitting Clinician Unavailable Payers Payer Name Policy Type Policy Effective Date Expiration Date Sour ce Number MEDICAREMEDICARE A [id number] 1999 PAMELA Tinajero [id number] 1999- 00:00:00 - M edical PresentMedicare Center MCR [id number] 2019 PAMELA Davis SUPPLEMENT/INDIVIDUAL 00:00:00 - [id number]/-PresentMedicasnovia MEDICAREMEDICARE PART [id number] 1999 Truman Ridley AND 00:00:00 Pentecostal [id number] 1999- [place], [facility] [id number] 2012 Adia ston OF 00:00:00 Pentecostal [id number]/ 3-PresentCommercial Problems Condition Condition Condition Status Onset Resolution Last Treating Co mments Source Name Details Category Date Date Treatment Clinician Date 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 00:00: st 00 Allergies, Adverse Reactions, Alerts Allergy Allergy Status Severity Reaction(s) Onset Inactive Treating Comm ents Source Name Type Date Date Clinician [facility]icill Drug Active Rash 2018-[address] [facility] [address] [facility] Allergy 2-10 reaction( [facility] Other Medical 00 (See Center Comments) Face turns red Penicill Propensi Active Rash 2018-05 [place] ins ty to 2-10 [facility] adverse 00:00: st reaction 00 s to drug Family History Family Member Diagnosis Comments Start Date Stop Date Source Natural brother Lung cancer [place] [facility] Natural father Heart disease [facility] Natural mother Breast cancer [facility] Natural sister Breast cancer [facility] Natural sister Stroke [facility] thodist Social History Social Habit Start Date Stop Date Quantity Comments Source History of Current smoker [facility] thodist tobacco use Sex Assigned [facility] ethodist Exposure to Not sure [place] Metho dist SARS-CoV-2 (event) Tobacco use and 2019-08-05 2019-08-05 Never used [facility] ethodist exposure 00:00:00 00:00:00 Alcohol intake 2019-08-05 2019-08-05 Ex-drinker [facility] thodist 00:00:00 00:00:00 (finding) Tobacco Comment 2019-05-04 2019-05-04 Smoked four years [facility] 00:00:00 00:00:00 in early twenties Alcohol Comment 2019-05-04 2019-05-04 Occasional wine. 2 [place] [facility] 00:00:00 00:00:00 to 3 glasses a month. Smoking Status Start Date Stop Date Source Former smoker 2019-08-05 00:00:00 2019-08-05 00:00:00 [place] [facility] Medications Ordered Filled Start Stop Current Ordering Indication Dosage Frequency Signature Comments Components Source Medication Medication Date Date Medication? Clinician (SIG) Name Name magnesium Yes [place] oxide 07-07 [facility] (MAG-OX) 10:33: st 400 mg 37 (241.3 mg magnesium) tablet aspirin Yes 81mg QD Take 81 mg [place] (ECOTRIN) 2-12 by mouth Method i 81 MG 10:33: daily. st enteric 37 coated tablet cholecalcif Yes Take by Adiaalonso urena romain, 2-12 mouth. [facility] vitamin D3, 10:33: st (VITAMIN D3 37 ORAL) Bifidobacte 2019-0 Yes Take by Adia avilabeverly rium 2-12 mouth. [facility] infantis 10:33: st (ALIGN 37 ORAL) multivitami 2020-0 Yes 1{tbl} QD Take 1 [place] with 2-12 tablet by [facility] minerals 10:33: mouth st tablet 37 daily. traMADol 2020- No acute pain 50mg Q6H Take [...] MG 00:00: st tablet 00 traMADol ER 2018-05 2020- No 200mg QD Take 200 Cardona (ULTRAM-ER) 1-18 02-06 mg by Method i 100 mg 24 00:00: 00:[address] hr tablet 00 :00 daily. ranitidine 2018-05 2020- No 150mg Q.5D Take 150 H ouayanna (ZANTAC) 1-14 01-21 mg by [facility] 150 MG 00:00: 00:[address] tablet 00 :00 (two) times a day before meals. levothyroxi 2018-05 Yes 75ug QD Take 75 Adia austinn ne 1-11 mcg by [facility] (SYNTHROID) 00:00: mouth st 75 mcg 00 every tablet morning. KLOR-CON 10 2018-05 Yes 10meq Take 10 [place] 10 mEq CR 1-10 mEq by [facility] tablet 00:00: mouth. st 00 Immunizations Ordered Immunization Filled Immunization Date Status Commen ts Source Name Name MARILIA BARCENAS 2019-02-17 Completed [place] 00:00:00 Pentec[facility]al Pneumococcal, 2017-04-25 Completed [place] Unspecified 00:00:00 Pentec[facility]al Pneumococcal, 2016-04-25 Completed [place] Unspecified 00:00:00 Pent[facility]al Vital Signs Vital Name Observation Time Observation Value Comments Source Body height 2020-04-12 13:51:00 157.5 cm [facility] Body weight 2020-04-12 13:51:00 64.411 kg [facility] BMI 2020-04-12 13:51:00 25.97 kg/m2 [facility] Systolic blood 2019-07-07 10:27:00 136 mm[Hg] [place] n Pentecostal pressure Diastolic blood 2019-07-07 10:27:00 70 mm[Hg] [place] [facility]al pressure Heart rate 2019-07-07 10:27:00 79 /min [place] [facility] Body temperature 2019-07-07 10:27:00 36.61 Michelle [place] [facility] Respiratory rate 2019-07-07 10:27:00 17 /min [place] [facility] Body height 2019-07-07 10:27:00 157.5 cm [place] [facility] Body weight 2019-07-07 10:27:00 70.308 kg [place] [facility] BMI 2019-07-07 10:27:00 28.35 kg/m2 [place] [facility] Oxygen saturation in 2019-07-07 10:27:00 96 /min [place] [facility] Arterial blood by Pulse oximetry Procedures Procedure Date / Time Performing Clinician Source Performed CT ABDOMEN/PELVIS WITH & 2020-04-12 15:27:00 [facility] - WITHOUT IV CONTRAST [facility] er POCT-CREATININE 2020-04-12 13:57:[address] [place] [facility] TB T-SPOT 2019-07-07 10:14:00 Mihaela Mcgrath POC GLUCOSE 2019-06-30 08:20:00 Madi Drummond Meth odist HC COMPLETE BLD COUNT 2019-06-30 06:25:00 [place], Min [place] [facility] W/AUTO DIFF BASIC METABOLIC PANEL 2019-06-30 06:21:00 [place] Madi paul Pentecostal MAGNESIUM LEVEL 2019-06-30 06:21:00 Madi Drummond Cornelius Cardona Meth odist PHOSPHORUS LEVEL 2019-06-30 06:21:00 [place] Madi Cardona Met hodist ESTIMATED GFR 2019-06-30 06:21:00 Madi Drummond Cornelius Cardona Meth odist XR CHEST 1 VW PORTABLE 2019-06-29 15:00:00 Coco Schneider on Pentecostal XR CHEST 1 VW PORTABLE 2019-06-29 11:42:00 Coco Schneider on Pentecostal XR CHEST 1 VW PORTABLE 2019-06-29 06:20:00 [place] HC COMPLETE BLD COUNT 2019-06-29 05:35:00 [place]ver [place] W/AUTO DIFF BASIC METABOLIC PANEL 2019-06-29 04:00:00 [place] Pentecostal MAGNESIUM LEVEL 2019-06-29 04:00:00 [place] Pent[facility]al PHOSPHORUS LEVEL 2019-06-29 04:00:00 [place] on Pentecostal ESTIMATED GFR 2019-06-29 04:00:00 [place] Madi Flowers odist POC GLUCOSE 2019-06-28 17:55:00 Madi Drummond Meth odist XR CHEST 1 VW PORTABLE 2019-06-28 15:38:00 [place] SURGICAL PATHOLOGY 2019-06-28 13:57:00 Madi Drummond REQUEST ARTERIAL BLOOD GAS, 2019-06-28 13:05:00 Madi Drummond CORRECTED SODIUM LEVEL, SYRINGE 2019-06-28 13:05:00 Madi Drummond Pentecostal POTASSIUM, SYRINGE 2019-06-28 13:05:00 Madi Drummondst IONIZED CALCIUM, ARTERIAL 2019-06-28 13:05:00 Madi Drummond Pentecostal HEMOGLOBIN, SYRINGE 2019-06-28 13:05:00 Madi Drummond GLUCOSE LEVEL, SYRINGE 2019-06-28 13:05:00 Madi Drummond on Pentecostal OH AN ELECTIVE 2019-06-28 12:55:57 Jh Boone ENDOTRACHEAL AIRWAY FUNGUS CULTURE 2019-06-28 00:00:00 Madi Drummond AFB STAIN 2019-06-28 00:00:00 Madi Drummond FUNGUS SMEAR 2019-06-28 00:00:00 [place] Madi Cornelius Flowers odist AFB CULTURE 2019-06-27 23:00:00 Madi Drummond HC COMPLETE BLD COUNT 2019-06-17 16:20:00 Madi Drummond W/AUTO DIFF COMPREHENSIVE METABOLIC 2019-06-17 16:20:00 Madi Drummond PANEL PROTHROMBIN TIME WITH INR 2019-06-17 16:20:00 Madi Drummond PARTIAL THROMBOPLASTIN 2019-06-17 16:20:00 Madi Drummond on Pentecostal TIME (PTT) TYPE AND SCREEN 2019-06-17 16:20:00 Madi Drummond ESTIMATED GFR 2019-06-17 16:20:00 Madi Drummond PREPARE RBC 2019-06-17 16:20:00 Madi Drummond SPIROMETRY, DIFFUSION, 2019-06-15 17:07:25 Madi Drummond on Pentecostal LUNG VOLUMES CT CHEST WO CONTRAST 2019-06-15 11:27:[address] SKULL BASE TO MID 2019-05-07 14:32:56 Madi Drummond [place]on Pentecostal THIGH POC GLUCOSE 2019-05-07 12:55:00 Madi Drummond Plan of Care Planned Activity Planned Date Details Comments Source Future Scheduled 2020-01-25 INFLUENZA VACCINE (#1) [facility] 00:[facility]:00 [code = INFLUENZA Medical Ce nter VACCINE (#1)] Future Scheduled 2000-12-[address] [facility] - Test 00:00:00 WELLNESS (YEAR 2 or Medical Center FIRST YEAR if no IPPE) [code = MEDICARE ANNUAL WELLNESS (YEAR 2 or FIRST YEAR if no IPPE)] Future Scheduled 2000-01-21 PNEUMOCOCCAL 65+ [facility] - Test 00:00:00 (1 of 1 - Medical Center [id number] PCV13) [code = PNEUMOCOCCAL 65+ YRS (1 of 1 - [id number] PCV13)] Future Scheduled 2000-01-21 65+ PNEUMOCOCCAL [place] [facility] Test 00:00:00 VACCINE (1 of 1 - PPSV23) [code = 65+ PNEUMOCOCCAL VACCINE (1 of 1 - PPSV23)] Future Scheduled 1985 SHINGLES VACCINES (#1) [facility] Test 00:00:00 [code = SHINGLES VACCINES (#1)] Encounters Start End Encounter Admission Attending Care Care Encounter Source Date/Time Date/Time Type Type Clinicians Facility Department ID 2019-08-04 2019-08-04 Outpatient MADI DRUMMOND [facility] [id number] [place] 00:00:00 00:00:[address] 2019-06-28 2019-06-30 Inpatient MADI DRUMMOND [facility] [id number] [place] 00:00:00 00:00:[address] 2019-06-15 2019-06-15 Outpatient MADI DRUMMOND [facility] [id number] [place] 00:00:00 00:00:[address] 2019-06-15 2019-06-15 Outpatient MADI DRUMMOND [facility] [id number] [place] 00:00:00 00:00:[address] 2019-05-07 2019-05-07 Outpatient MADI DRUMMOND [facility] [id number] [place] 00:00:00 00:00:[address] 2019-05-04 2019-05-04 Outpatient MADI DRUMMOND [facility] [id number] [place] 00:00:00 00:00:[address] Results Test Description Test Time Test Comments Results Result [facility] e Comments CT, ABDOMEN 2020-04-12 Unlisted 16:55:00 Reason for Exam - Click Yes and Enter PAMELA BACA [facility] CENTERName: Below->No CELSO MADISON : 1935 Sex: F FINAL REPORT CT of the abdomen, with and without contrast, CT of pelvis with contrast Clinical History: Neoplasm: pancreas Technique: CT of the abdomen is performed before and after intravenous contrast administration. CT of pelvis is performed after intravenous contrast administration. This exam was performed according to our departmental dose optimization program which includes automated exposure control, adjustment of the mA and/or kV according to patient's size and/or use of iterative reconstructive technique. Comparison Film: None Discussion: There is mild scarring or atelectasis at the right lung base. Liver contains a few tiny calcified granulomas. A punctate hypervascular nodule at the right hepatic dome is probably a perfusion anomaly or a flash filling hemangioma. No suspicious liver mass is identified. There is moderate degree of biliary ductal dilatation, CBD measures 12 mm. Status post cholecystectomy. No stone or focal narrowing is identified. There is no pancreatic ductal dilatation, or peripancreatic inflammation. Note the pancreatic head and uncinate process is suboptimally evaluated due to streak artifact from patient's spinal hardware. No definite mass lesion is seen. No evidence of vascular narrowing or encasement. Spleen, adrenal glands are unremarkable. Kidneys demonstrate no hydronephrosis, radiopaque stone, or mass. There are a few tiny hypodensity in the kidneys, too small to definitively characterize, but statistically they are likely to represent cysts. No evidence of bowel obstruction, or abnormal bowel wall thickening. There is sigmoid diverticulosis. Normal appendix. In the pelvis, bladder, uterus and adnexa are unremarkable. No ascites, or lymphadenopathy. There is mild vascular calcification. Bony structures demonstrate degenerative changes, and osteopenia. Definite destructive bony lesion is seen. Status post dorsal fusion at L3-L4, the left pedicle screw of L3 projects into the L2-L3 disc space. Impression: Status post cholecystectomy. There is moderate degree of biliary ductal dilatation. No definite obstructive lesion/pancreatic mass is identified on this exam. Note the pancreatic head and uncinate process region is suboptimally evaluated due to streak artifact from patient's spinal hardware. Sigmoid diverticulosis. Signed: Peggy Su Verified Date/Time: 04/12/2020 16:55:23 Reading Location: [facility] C013X Ortho Consult Reading Room abdomen/pelvis 2020-04-12 Interface, External [facility] without & with IV 16:55:00 Ris In - 04/12/2020 - Medical contrast 4:57 PM [facility] Center REPORT CT of the abdomen, with and without contrast, CT of pelvis with contrast Clinical History: Neoplasm: pancreas Technique: CT of the abdomen is performed before and after intravenous contrast administration. CT of pelvis is performed after intravenous contrast administration. This exam was performed according to our departmental dose optimization program which includes automated exposure control, adjustment of the mA and/or kV according to patient's size and/or use of iterative reconstructive technique. Comparison Film: None Discussion: There is mild scarring or atelectasis at the right lung base. Liver contains a few tiny calcified granulomas. A punctate hypervascular nodule at the right hepatic dome is probably a perfusion anomaly or a flash filling hemangioma. No suspicious liver mass is identified. There is moderate degree of biliary ductal dilatation, CBD measures 12 mm. Status post cholecystectomy. No stone or focal narrowing is identified. There is no pancreatic ductal dilatation, or peripancreatic inflammation. Note the pancreatic head and uncinate process is suboptimally evaluated due to streak artifact from patient's spinal hardware. No definite mass lesion is seen. No evidence of vascular narrowing or encasement. Spleen, adrenal glands are unremarkable. Kidneys demonstrate no hydronephrosis, radiopaque stone, or mass. There are a few tiny hypodensity in the kidneys, too small to definitively characterize, but statistically they are likely to represent cysts. No evidence of bowel obstruction, or abnormal bowel wall thickening. There is sigmoid diverticulosis. Normal appendix. In the pelvis, bladder, uterus and adnexa are unremarkable. No ascites, or lymphadenopathy. There is mild vascular calcification. Bony structures demonstrate degenerative changes, and osteopenia. Definite destructive bony lesion is seen. Status post dorsal fusion at L3-L4, the left pedicle screw of L3 projects into the L2-L3 disc space. Impression: Status post cholecystectomy. There is moderate degree of biliary ductal dilatation. No definite obstructive lesion/pancreatic mass is identified on this exam. Note the pancreatic head and uncinate process region is suboptimally evaluated due to streak artifact from patient's spinal hardware. Sigmoid diverticulosis. Signed: Peggy Su MDReport Verified Date/Time: 04/12/2020 16:55:23 Reading Location: [facility] C013X Ortho Consult Reading Room -Creatinine 2020-04-12 14:30:00 Test Item Value Reference Range Interpretation Comme nts POC-Creatinine (test code = 0.6 mg/dL 0.6-1.3 : TESTED AT [facility] [address]) [facility] A, [facility] [address]: Oral Hygienist/Techni danny ID = [id number] for Ekaterina NG ERONICA POC-EGFR (test code = 1860) 95 mL/min/1.73M2 [id number] 14:30:00 Test Item Value Reference Range Interpretation Comments POC-CREATININE 0.6 mg/dL 0.6-1.3 : TESTED AT [facility] ([facility]) (test [address] [facility] code = 1859) [facility] 7 0313: Oral Hygienist/Techni danny ID = [id number] for TERESA NG POC-EGFR 95 mL/min/1.73M2 ([facility]) (test code = 1860) AFB [id number] 00:13:59 Test Item Value Reference Range Interpretation Comments AFB culture No growth Specimen isolate (test after 6 weeks InformationSp ecimen code = 543-9) of Source: Tissue Specimen incubation. Site: Lung , RI GHT LOWER LOBE [place] MethodistFungus [id number] 00:15:37 Test Item Value Reference Range Interpretation Comments Fungus culture No growth Specimen isolate (test after 4 weeks InformationSp ecimen code = 1441) of Source: TissueS pecimen incubation. Site: Lung , RI GHT LOWER LOBE [place] MethodistTB [id number] 16:30:38 Test Item Value Reference Range Interpretation [...] HISTORICAL, MEDICAL, AND DI AGNOSTIC FINDINGS THAT Hang PAYNE BE TAKEN INTO ACCOUNT WH EN INTERPRETING [...] RECOMMENDED FOR USE WITH T= SPOT.TB TEST.Performed by:[facility] Molecular Tuber culosis Laboratory [facility] ([id number] [id number])[address] [id number] 17:49:45 Test Item Value Reference Range Interpretation Comments Case number (test [id number] code = 3766365) Surgical pathology See link below for PDF report (test code = Lab Report 2255) Result status (test This is Supplemental code = 6018357) Report for [id number] [facility] [id number] 08:21:23 Test Item Value Reference Range Interpretation Comments POC glucose (test 71 mg/dL 65-99 Oral Hygienist N festus: Ayde code = 08381-5) Ysabel ID: [id number] able: [facility] Notified RN [facility] metabolic [id number] 07:25:03 Test Item Value Reference Range Interpretation Comments Sodium (test code = 2951-2) 138 135- 148 mEq/L Potassium (test code = 2823-3) 3.8 3.5- 5.0 mEq/L Chloride (test code = 2075-0) 103 98- 112 mEq/L CO2 (test code = 2027-9) 28 24- 31 mEq/L Anion gap (test code = 72431-7) 7@ANIO 7- 15 mEq/L BUN (test code = 3094-0) 10 mg/dL 8-23 Creatinine (test code = 2160-0) 0.66 mg/dL 0.5-0.9 Glucose (test code = 2345-7) 94 mg/dL 65-99 Calcium (test code = 57200-4) 8.7 mg/dL 8.8-10.2 L Lab Interpretation (test code = Abnormal 97455-6) Brendan MethodistMagnesium [id number] 07:25:03 Test Item Value Reference Range Interpretation Comments Magnesium (test code = 65411-2) 1.9 mg/dL 1.6-2.4 Brendan MethodistEstimated [id number] 07:25:03 Test Item Value Reference Range Interpretation Comments Estimated GFR (test 81 mL/min/1.73 m2 [facility] code = 5488) InterpretationG 1 >=90 Normal or highG2 60-89 Mildly hcqcydcfgZ8p 45-59 Mildly to mode rately dpaljfizmR7b 30-44 Moderately to severely decreasedG4 15-29 Severely decre asedG5 <15 Kidn ey failureThe eGFR was calculated demario verde the Chronic Kidney Disease Epidemiology Co llaboration (CKD-EPI) equat ion. Interpretation is based on recommendations of the National Kidney Foundation-Kidn ey Disease Outcomes Qualit y Initiative (NKF-KDOQI) pub lished in 2014. Brendan MaiistPhosphorus [id number] 07:25:02 Test Item Value Reference Range Interpretation Comments Phosphorus (test code = 2777-1) 2.4 mg/dL 2.4-4.5 Brendan MethodistCBC with platelet and [id number] 07:05:33 Test Item Value Reference Range Interpretation Comments WBC (test code = 22584-2) 12.17 4.50- 11.00 k/uL H RBC (test code = 95310-9) 3.80 m/uL 4.2-5.5 L HGB (test code = 718-7) 11.7 g/dL 12-16 L HCT (test code = 4544-3) 36.1 % 37-47 L MCV (test code = 787-2) 95.0 fL 82-100 MCH (test code = 785-6) 30.8 pg 27-34 MCHC (test code = 786-4) 32.4 g/dL 31-37 RDW - SD (test code = 46.7 fL 37-55 30286-8) MPV (test code = 40793-2) 11.0 fL 8.8-13.2 Platelet count (test code 252 150- 400 k/uL = 98881-8) Nucleated RBC (test code 0.00 /100 WBC = 84245-0) Neutrophils (test code = 68.4 % 39-69 45451-9) Lymphocytes (test code = 18.2 % 25-45 L 07467-4) Monocytes (test code = 9.0 % 0-10 15063-1) Eosinophils (test code = 3.5 % 0-5 85214-6) Basophils (test code = 0.4 % 0-1 14523-3) Immature granulocytes 0.5 % 0-1 "Immat ure (test code = 16730-8) granul ocytes" (promyelocytes, myelocytes, metamyelocytes) Lab Interpretation (test Abnormal code = 25304-0) [place] MethodistXR Chest 1 Vw [id number] 15:29:18Hm Interface, Radiology Results Incoming - 06/29/2019 [...] emphysema. Intact skeleton. 6.Partially imaged cervical fusion hardware.[place] MethodistFungus [id number] 13:46:42 Test Item Value Reference Range Interpretation Comments Fungus smear No fungi Specimen (test code = observed. InformationSpec imen Source: 1443) TissueSpecimen Site: Lung , RIGHT LOWER LOB E [place] MethodistAFB [id number] 11:24:32 Test Item Value Reference Range Interpretation Comments AFB stain No acid fast Specimen (test code = bacilli (AFB) InformationSpe cimen 676-7) seen. Source: TissueS pecimen Site: Lung , RI GHT LOWER LOBE [place] MethodistPrepare [id number] 15:50:00 Test Item Value Reference Range Interpretation Comments Product name (test code Red Blood Cells -1, = 25) Leukored Unit number (test code [id number] = 2918619) Product code (test code I7390N53 = 3092) Dispense status (test Returned to not code = 24) transfused Blood expiration date (test code = 302) Blood type code (test 8400 code = 308) Blood type (test code = AB POSITIVE 1314) Compatibility (test Compatible code = 6400) [place] MethodistArterial blood gas, [id number] 13:17:51 Test Item Value Reference Range Interpretation [...] pH, arterial corrected (test code = 7.47 71771-2) pCO2, arterial corrected (test code 33 mmHg = 19892-2) pO2, arterial corrected (test code = 301 mmHg 17018-0) Base excess, arterial (test code = 1 -2 - 2 mEq-L 1925-7) Lab Interpretation (test code = Abnormal 69564-5) [place] MethodistGlucose level, [id number] 13:17:51 Test Item Value Reference Range Interpretation Comments Glucose, syringe (test code = 102 mg/dL 65-99 H 2345-7) Lab Interpretation (test code = Abnormal 66694-6) [place] MethodistHemoglobin, [id number] 13:17:51 Test Item Value Reference Range Interpretation Comments Hemoglobin, syringe (test code = 11.9 g/dL 12-16 L 718-7) Lab Interpretation (test code = Abnormal 91243-4) [place] MethodistIonized calcium, [id number] 13:17:51 Test Item Value Reference Range Interpretation Comments Ionized calcium, arterial (test 1.02 mmol/L 1.11-1.32 L code = 84314-5) Lab Interpretation (test code = Abnormal 19879-1) Brendan MethodistPotassium, [id number] 13:17:51 Test Item Value Reference Range Interpretation Comments Potassium, syringe (test code = 2007) 3.6 3.5- 5.0 mEq/L Brendan MethodistSodium level, [id number] 13:17:51 Test Item Value Reference Range Interpretation Comments Sodium, syringe (test code = 2947-0) 138 135- 148 mEq/L Cardona [id number] 12:55:57KesTrice smallwood 06/28/2019 12:57 PMAirwayDate/Time: 06/28/2019 12:18 PMPerformed by: [...] used; KENDAL placed with use of fiberoptic scopeLehighton MethodistType and [id number] 17:49:00 Test Item Value Reference Range Interpretation Comments ABO grouping (test code = 883-9) AB Rh type (test code = 67632-0) POS Antibody screen (gel) (test code = NEG 890-4) Brendan MaiistComprehensive metabolic [id number] 17:13:56 Test Item Value Reference Range Interpretation Comments Sodium (test code = 139 135- 148 mEq/L 2951-2) Potassium (test code = 4.2 3.5- 5.0 mEq/L 2823-3) Chloride (test code = 99 98- 112 mEq/L 5-0) CO2 (test code = 2027-) 30 24- 31 mEq/L Anion gap (test code = 10@ANIO 7- 15 mEq/L 36278-7) BUN (test code = 3094-0) 14 mg/dL 8-23 Creatinine (test code = 0.58 mg/dL 0.5-0.9 2160-0) Glucose (test code = 98 mg/dL 65-99 2345-7) Calcium (test code = 9.8 mg/dL 8.8-10.2 06661-3) Protein (test code = 7.8 g/dL 6.3-8.3 9994.6-7.0 2885-2) g/dL1 fswj3941.4-7.6 g/dL7 months-1vcxd847 .1- 7.3 g/dL1-2 .6-7.5 g/dL>3 ftijy305.0-8.0 g/fQ84-1098061. 3-8 .3 g/dL Albumin (test code = 3.8 g/dL 3.5-5 1751-7) A/G ratio (test code = 1.0 0.7-3.8 1759-0) Alkaline phosphatase 109 U/L 35-104 H (test code = 6768-6) AST (test code = 1920-8) 26 U/L 10-35 ALT (test code = 1742-6) 24 U/L 5-50 Total bilirubin (test 0.3 mg/dL 0-1.2 code = 1974-) Lab Interpretation (test Abnormal code = 14905-4) Brendan MethodistPartial thromboplastin time, [id number] 17:07:56 Test Item Value Reference Range Interpretation Comments PTT (test code = 25.8 23.0- 36.0 [place] [address]-4) unfractionated heparin is61.0-112.0 se conds which corresponds to Anti-Xa0.3-0.7 U/ml. Brendan MethodistProthrombin time with [id number] 17:07:18 Test Item Value Reference Range Interpretation Comments Prothrombin time (test 12.4 11.5- 14.5 sec code = 5902-2) INR (test code = 0.9 [facility] 90338-7) Normalized Rati o (INR) is a therapeutic m onitoring tool for patien ts who are stable on oral anticoagulant t herapy. An INR of 2.0-3.0 is suggested for d eep vein thrombosis/pulm onary embolism. Lehighton MethodistSpirometry, diffusion, lung [id number] 17:07:25 Test Item Value Reference Range Interpretation [...] Predicted 84.4 % (test code = 5445) Cardona MethodistCT Chest Wo [id number] 12:37:29Hm Interface, Radiology Results 06/15/2019 12:40 PM [...] combination of benign granulomas and intrapulmonary lymph nodes.[facility]-[id number] MethodistPET/CT Skull Base To Mid [id number] 15:20:15Hm Interface, Radiology Results - 05/07/2019 3:23 PM CSTPROCEDURE: PET CT SKULL [...] resolution, as not all malignancies concentrate FDG. [id number] Pentecostal
[2020-04-16 01:35] LABS: Absolute Lymphocytes (CBC) 2.2 K/uL (0.7-4.9); Basophils % 0.9 % (0-1.3); Hematocrit 38.1 % (36.0-45.0); Lymphocytes % 34.7 % (15.3-44.8); MPV 8.8 fL (7.6-11.3); RBC Red Blood Cell Count 4.11 M/uL (3.86-4.86)
[2020-04-16 01:56] LABS: ALT/SGPT 59 U/L (12-78); AST/SGOT 40 U/L (15-37); Albumin 3.4 g/dL (3.4-5.0); Alkaline Phosphatase 120 U/L (45-117); BUN Blood Urea Nitrogen 12 mg/dL (7-18); Bicarbonate 31 mmol/L (21-32); Bilirubin Direct 0.1 mg/dL (0-0.2); Bilirubin Total 0.3 mg/dL (0.2-1.0); Glucose Level 94 mg/dL (74-106); Lipase 129 U/L (73-393); Potassium 3.7 mmol/L (3.5-5.1); Sodium Level 140 mmol/L (136-145)
[2020-04-16] MEDS ORDERED: MORPHINE 4 MG/ML SYR ONE (02:01)
[2020-04-16 02:02] LABS: Urine Blood NEGATIVE (NEG); Urine Glucose NEGATIVE (NEG); Urine Protein NEGATIVE (NEG); Urine Specific Gravity 1.015 (1.005-1.030); Urine pH 7.5 (5.0-7.0)
[2020-04-16] MEDS ORDERED: ONDANSETRON 4 MG/2 ML VIAL ONE (02:02)
--- NOTE | 2020-04-16 04:51 | ER ---
Nurse's Notes [facility] Name: Parvin Manzo Age: 85 yrs Sex: Female : 1935 Arrival Date: 04/16/2020 Time: 00:39 Bed 20 Private MD: Diagnosis: Upper abdominal pain, unspecified;Intrahepatic and Pancreatic Ductal Dilatation-Chronic Presentation: 04/16 00:39 Chief complaint: EMS states: PT called us out tonight complaining of right upper jb4 abdominal pain that radiates to the right upper back. Pt has been seen by her PCP and doctors in [place] regarding her pancreas, and reports that they seem to know the problem but are waiting on more test to verify. Pt took her home [place] at 2330, and gabapentin at 2230. Coronavirus screen: Client denies travel out of the [place] in the last 14 days. At this time, the client does not indicate any symptoms associated with coronavirus-19. Ebola Screen: Patient negative for fever greater than or equal to 101.5 degrees Fahrenheit, and additional compatible Ebola Virus Disease symptoms. Initial Sepsis Screen: Does the patient meet any 2 criteria? No. Patient's initial sepsis screen is negative. Does the patient have a suspected source of infection? No. Patient's initial sepsis screen is negative. Risk Assessment: Do you want to hurt yourself or someone else? Patient reports no desire to harm self or others. Onset of symptoms was April 16, 2020. Transition of care: patient was not received from another setting of care. 00:39 Method Of Arrival: EMS: [facility] jb4 00:39 Acuity: ORI 3 jb4 Historical: - Allergies: 00:46 PENICILLINS (Hives); jb4 - Home Meds: 00:46 aspirin 81 mg Oral chew 1 tab once daily [Active]; levothyroxine oral [Active]; jb4 Ranitidine Oral [Active]; WelChol 625 mg oral tab 2 times per day [Active]; ursodiol 300 mg Oral cap 2 times per day [Active]; nexabiotic daily [Active]; amitriptyline 10 mg Oral tab nightly [Active]; torsemide 10 mg oral tab 1 tab every other day [Active]; potassium chloride 10 mEq Oral cpER 1 cap every other day [Active]; - PMHx: 00:46 Hypothyroidism; GERD; jb4 - PSHx: 00:46 bone transplant; back surgical; hip replacement; Cholecystectomy; jb4 - Immunization history:: Adult Immunizations up to date. - Social history:: Smoking status: Patient denies any tobacco usage or history of. Patient uses alcohol, occasionally. Patient/guardian denies using street drugs. Screenin:47 Abuse screen: Denies threats or abuse. Nutritional screening: No deficits noted. jb4 Tuberculosis screening: No symptoms or risk factors identified. Fall Risk None identified. Assessment: 00:46 General: Appears in no apparent distress. uncomfortable, Behavior is calm, cooperative, jb4 appropriate for age. Pain: Complains of pain in right upper quadrant Pain does not radiate. Pain currently is 3 out of 10 on a pain scale. at worst was 10 out of 10 on a pain scale. Neuro: Level of Consciousness is awake, alert, obeys commands, Oriented to person, place, time, situation. Cardiovascular: Patient's skin is warm and dry. Respiratory: Airway is patent Respiratory effort is even, unlabored, Respiratory pattern is regular, symmetrical. GI: No signs and/or symptoms were reported involving the gastrointestinal system. : No signs and/or symptoms were reported regarding the genitourinary system. EENT: No signs and/or symptoms were reported regarding the EENT system. Derm: Skin is intact, Skin is pink, warm \T\ dry. Musculoskeletal: Circulation, motion, and sensation intact. Range of motion: intact in all extremities. 00:49 Reassessment: Pt's Daughter (Bhavik Manzo) [phone]. jb4 02:03 Reassessment: Patient appears in no apparent distress at this time. Patient and/or jb4 family updated on plan of care and expected duration. Pain level reassessed. Patient is alert, oriented x 3, equal unlabored respirations, skin warm/dry/pink. 03:07 Reassessment: Patient appears in no apparent distress at this time. Patient and/or jb4 family updated on plan of care and expected duration. Pain level reassessed. Patient is alert, oriented x 3, equal unlabored respirations, skin warm/dry/pink. Pt given a warm blanket per request. 04:10 Reassessment: Patient appears in no apparent distress at this time. Patient and/or jb4 family updated on plan of care and expected duration. Pain level reassessed. Patient is alert, oriented x 3, equal unlabored respirations, skin warm/dry/pink. 05:16 Reassessment: Patient appears in no apparent distress at this time. Patient and/or jb4 family updated on plan of care and expected duration. Pain level reassessed. Patient is alert, oriented x 3, equal unlabored respirations, skin warm/dry/pink. PT's daughter called and notified of pending discharge. Vital Signs: 00:39 BP 138 / 85; Pulse 66; Resp 16; Temp 97.8(O); Pulse Ox 100% on R/A; Weight 63.5 kg (R); jb4 Height 5 ft. 2 in. (157.48 cm); Pain 3/10; 01:45 BP 136 / 86; Pulse 72; Resp 16; Pulse Ox 98% on R/A; jb4 02:45 BP 116 / 80; Pulse 55; Resp 16; Pulse Ox 97% on R/A; jb4 03:30 BP 102 / 63; Pulse 64; Resp 16; Pulse Ox 97% on R/A; jb4 04:30 BP 112 / 55; Pulse 57; Resp 16; Pulse Ox 97% on R/A; jb4 05:00 BP 115 / 59; Pulse 56; Resp 16; Pulse Ox 98% on R/A; jb4 00:39 Body Mass Index 25.61 (63.50 kg, 157.48 cm) [facility] ED Course: 00:39 Patient arrived in ED. jb4 00:40 Wero Hunt MD is Attending Physician. 7 00:42 Triage completed. jb4 00:46 Arm band placed on right wrist. jb4 00:47 Patient has correct armband on for positive identification. Bed in low position. Call [facility] light in reach. Side rails up X 1. Pulse ox on. NIBP on. 00:59 Khai Sarmiento RN is Primary Nurse. jb4 01:25 Initial lab(s) drawn, by me, sent to lab. Inserted saline lock: 20 gauge in right jb4 antecubital area, using aseptic technique. Blood collected. 03:37 CT Abd/Pelvis - IV Contrast Only In Process Unspecified. EDAL 04:49 Dagoberto Rivera MD is Referral Physician. [facility] 05:22 No provider procedures requiring assistance completed. IV discontinued, intact, jb4 bleeding controlled, No redness/swelling at site. Pressure dressing applied. Administered Medications: 01:54 Drug: Zofran (Ondansetron) 4 mg Route: IVP; Site: right antecubital; jb4 02:20 Follow up: Response: No adverse reaction jb4 01:56 Drug: morphine 4 mg Route: IVP; Site: right antecubital; jb4 02:20 Follow up: Response: No adverse reaction; Pain is decreased; RASS: Alert and Calm (0) jb Outcome: 04:49 Discharge ordered by . 7 05:22 Discharged to home via wheelchair, with family. jb4 05:22 Condition: stable 05:22 Discharge instructions given to patient, Instructed on discharge instructions, follow up and referral plans. medication usage, Demonstrated understanding of instructions, follow-up care, medications, Prescriptions given X 1. 05:25 Patient left the ED. 4 Signatures: Dispatcher [employer] EDMS Khai Sarmiento RN RN 4 Wero Hunt MD MD [facility] Corrections: (The following items were deleted from the chart) 00:42 00:39 Chief complaint: EMS states: PT called us out tonight complaining of right upper jb4 abdomenal pain that radiates to the right upper back. Pt has been seen by her PCP and doctors in [place] regarding her pancreas, and reports that they seem to know the problem but are waiting on more test to verify. jb4 04:11 03:30 BP 102 / 63; Pulse 94bpm; Resp 16bpm; Pulse Ox 97% RA; jb4 jb4 05:20 00:49 Reassessment: Pt's Daughter (Bhavik Manzo) [phone] [place] [address] 05:22 05:00 No provider procedures requiring assistance completed. jb4 jb4 05:22 05:00 IV discontinued, intact, bleeding controlled, No redness/swelling at site. jb4 Pressure dressing applied, jb4
--- NOTE | 2020-04-16 04:51 | EDPHYS ---
Physician Documentation [facility] Name: Parvin Manzo Age: 85 yrs Sex: Female : 1935 Arrival Date: 04/16/2020 Time: 00:39 Bed 20 Private MD: ED Physician Wero Hunt HPI: 04/16 01:29 This 85 yrs old Female presents to ER via EMS with complaints of Abdominal mh7 Pain. 01:29 The patient presents with abdominal pain in the upper abdomen. mh7 01:32 Onset: The symptoms/episode began/occurred last night. The symptoms radiate to right mh7 back. 01:33 Associated signs and symptoms: Pertinent negatives: nausea, vomiting, and diarrhea, mh7 nausea and vomiting, anorexia, blood in stools, chest pain, constipation, diarrhea, dysuria, fever, headache, hematuria, nausea, palpitations, shortness of breath, vaginal discharge, vomiting, vomiting blood. The symptoms are described as intermittent, vague, waxing/waning. Modifying factors: The symptoms are alleviated by narcotics, the symptoms are aggravated by nothing. Severity of pain: At its worst the pain was moderate today, in the emergency department the pain has improved moderately. Historical: - Allergies: 00:46 PENICILLINS (Hives); jb4 - Home Meds: 00:46 aspirin 81 mg Oral chew 1 tab once daily [Active]; levothyroxine oral [Active]; jb4 Ranitidine Oral [Active]; WelChol 625 mg oral tab 2 times per day [Active]; ursodiol 300 mg Oral cap 2 times per day [Active]; nexabiotic daily [Active]; amitriptyline 10 mg Oral tab nightly [Active]; torsemide 10 mg oral tab 1 tab every other day [Active]; potassium chloride 10 mEq Oral cpER 1 cap every other day [Active]; - PMHx: 00:46 Hypothyroidism; GERD; jb4 - PSHx: 00:46 bone transplant; back surgical; hip replacement; Cholecystectomy; jb4 - Immunization history:: Adult Immunizations up to date. - Social history:: Smoking status: Patient denies any tobacco usage or history of. Patient uses alcohol, occasionally. Patient/guardian denies using street drugs. ROS: 01:33 Constitutional: Negative for fever, chills, and weight loss, Eyes: Negative for injury, mh7 pain, redness, and discharge, ENT: Negative for injury, pain, and discharge, Neck: Negative for injury, pain, and swelling, Cardiovascular: Negative for chest pain, palpitations, and edema, Respiratory: Negative for shortness of breath, cough, wheezing, and pleuritic chest pain, : Negative for injury, bleeding, discharge, and swelling, MS/Extremity: Negative for injury and deformity, Skin: Negative for injury, rash, and discoloration, Neuro: Negative for headache, weakness, numbness, tingling, and seizure, Psych: Negative for depression, anxiety, suicide ideation, homicidal ideation, and hallucinations, Allergy/Immunology: Negative for hives, rash, and allergies, Endocrine: Negative for neck swelling, polydipsia, polyuria, polyphagia, and marked weight changes, Hematologic/Lymphatic: Negative for swollen nodes, abnormal bleeding, and unusual bruising. Exam: 01:33 Head/Face: Normocephalic, atraumatic. Eyes: Pupils equal round and reactive to light, mh7 extra-ocular motions intact. Lids and lashes normal. Conjunctiva and sclera are non-icteric and not injected. Cornea within normal limits. Periorbital areas with no swelling, redness, or edema. Neck: Trachea midline, no thyromegaly or masses palpated, and no cervical lymphadenopathy. Supple, full range of motion without nuchal rigidity, or vertebral point tenderness. No Meningismus. Chest/axilla: Normal chest wall appearance and motion. Nontender with no deformity. No lesions are appreciated. Cardiovascular: Regular rate and rhythm with a normal S1 and S2. No gallops, murmurs, or rubs. Normal PMI, no JVD. No pulse deficits. Respiratory: Lungs have equal breath sounds bilaterally, clear to auscultation and percussion. No rales, rhonchi or wheezes noted. No increased work of breathing, no retractions or nasal flaring. 01:33 Skin: Warm, dry with normal turgor. Normal color with no rashes, no lesions, and no evidence of cellulitis. MS/ Extremity: Pulses equal, no cyanosis. Neurovascular intact. Full, normal range of motion. Neuro: Awake and alert, GCS 15, oriented to person, place, time, and situation. Cranial nerves II-XII grossly intact. Motor strength 5/5 in all extremities. Sensory grossly intact. Cerebellar exam normal. Normal gait. Psych: Awake, alert, with orientation to person, place and time. Behavior, mood, and affect are within normal limits. 01:33 Constitutional: The patient appears in no acute distress, alert, awake, uncomfortable. 01:33 Abdomen/GI: Inspection: abdomen appears normal, Bowel sounds: normal, in all quadrants, Palpation: moderate abdominal tenderness, in the epigastric area, posterior aspect of right lateral abdomen and right upper quadrant, Rectal exam: the exam is deferred, because of patient request, Indicators: McBurney's point is not tender, Triplett's sign is negative, Rovsing's sign is negative, Obturator sign is negative, Psoas sign is negative, Liver: no appreciated palpable abnormalities, Hernia: not appreciated. 01:33 Back: CVA tenderness, that is mild, is noted on the right, muscle spasm, is not present. Vital Signs: 00:39 BP 138 / 85; Pulse 66; Resp 16; Temp 97.8(O); Pulse Ox 100% on R/A; Weight 63.5 kg (R); jb4 Height 5 ft. 2 in. (157.48 cm); Pain 3/10; 01:45 BP 136 / 86; Pulse 72; Resp 16; Pulse Ox 98% on R/A; jb4 02:45 BP 116 / 80; Pulse 55; Resp 16; Pulse Ox 97% on R/A; jb4 03:30 BP 102 / 63; Pulse 64; Resp 16; Pulse Ox 97% on R/A; jb4 04:30 BP 112 / 55; Pulse 57; Resp 16; Pulse Ox 97% on R/A; jb4 05:00 BP 115 / 59; Pulse 56; Resp 16; Pulse Ox 98% on R/A; jb4 00:39 Body Mass Index 25.61 (63.50 kg, 157.48 cm) jb4 MDM: 04:47 Differential diagnosis: bowel obstruction, diverticulitis, gastritis, gastroesophageal mh7 reflux disease, non-specific abd pain, pancreatitis, Peptic Ulcer Disease, Ureterolithiasis, urinary tract infection. Data reviewed: vital signs, nurses notes, EMS record, old medical records, lab test result(s), CBC, electrolytes, urinalysis, EKG, radiologic studies, CT scan. Data interpreted: Pulse oximetry: on room air is 97 %. Interpretation: normal. Counseling: I had a detailed discussion with the patient and/or guardian regarding: the historical points, exam findings, and any diagnostic results supporting the discharge/admit diagnosis, lab results, radiology results, the need for outpatient follow up, to return to the emergency department if symptoms worsen or persist or if there are any questions or concerns that arise at home. Response to treatment: the patient's symptoms have resolved after treatment, the patient's blood pressure is in an acceptable range, mental status has returned to baseline, the patient no longer shows bradycardia, the patient is not short of breath, the patient is not tachycardic, the patient's pain is gone, the patient's temperature has normalized. 04:49 Patient medically screened. [facility] 04/16 00:59 Order name: Basic Metabolic Panel; Complete Time: 02:30 04/16 00:59 Order name: CBC with Diff; Complete Time: 02:30 [facility] 04/16 00:59 Order name: Hepatic Function; Complete Time: 02:30 04/16 00:59 Order name: Lipase; Complete Time: 02:30 [facility] 04/16 01:37 Order name: Urine Dipstick--Ancillary (enter results); Complete Time: 02:30 [facility] 04/16 02:31 Order name: CT Abd/Pelvis - IV Contrast Only [facility] 04/16 00:59 Order name: IV Saline Lock; Complete Time: 01:39 [facility] 04/16 00:59 Order name: Labs collected and sent; Complete Time: 01:40 [facility] 04/16 00:59 Order name: Urine Dipstick-Ancillary (obtain specimen); Complete Time: 01:39 [facility] 04/16 00:59 Order name: EKG - Nurse/Tech; Complete Time: 01:39 [facility] Administered Medications: 01:54 Drug: Zofran (Ondansetron) 4 mg Route: IVP; Site: right antecubital; [facility] 02:20 Follow up: Response: No adverse reaction [facility] 01:56 Drug: morphine 4 mg Route: IVP; Site: right antecubital; [facility] 02:20 Follow up: Response: No adverse reaction; Pain is decreased; RASS: Alert and Calm (0) [facility] Disposition: 04/16/20 04:49 Discharged to Home. Impression: Upper abdominal pain, unspecified, Intrahepatic and Pancreatic Ductal Dilatation-Chronic. - Condition is Stable. - Discharge Instructions: Abdominal Pain, Adult, Wmhy-ma-Oodo. - Prescriptions for Bentyl 20 mg Oral Tablet - take 1 tablet by ORAL route every 6 hours As needed; 20 tablet. - Medication Reconciliation Form, Thank You Letter, Antibiotic Education, Prescription Opioid Use form. - Follow up: Private Physician; When: 1 - 2 days; Reason: Worsening of condition, Recheck today's complaints, Continuance of care, Re-evaluation by your physician. Follow up: Dagoberto Rivera MD; When: 1 - 2 days; Reason: Worsening of condition, Recheck today's complaints. - Problem is chronic. - Symptoms have improved. Signatures: Dispatcher [employer] EDKhai Roque RN RN jb4 Wero Hunt MD MD mh7 Corrections: (The following items were deleted from the chart) 04:52 04:49 04/16/2020 04:49 Discharged to Home. Impression: Upper abdominal pain, mh7 unspecified. Condition is Stable. Forms are Medication Reconciliation Form, Thank You Letter, Antibiotic Education, Prescription Opioid Use. Follow up: Private Physician; When: 1 - 2 days; Reason: Worsening of condition, Recheck today's complaints, Continuance of care, Re-evaluation by your physician. Follow up: Dagoberto Rivera; When: 1 - 2 days; Reason: Worsening of condition, Recheck today's complaints. Problem is chronic. Symptoms have improved. mh7 05:25 04:52 04/16/2020 04:49 Discharged to Home. Impression: Upper abdominal pain, jb4 unspecified; Intrahepatic and Pancreatic Ductal Dilatation-Chronic. Condition is Stable. Discharge Instructions: Abdominal Pain, Adult, Ovwv-xx-Wimz. Prescriptions for Bentyl 20 mg Oral Tablet - take 1 tablet by ORAL route every 6 hours As needed; 20 tablet. and Forms are Medication Reconciliation Form, Thank You Letter, Antibiotic Education, Prescription Opioid Use. Follow up: Private Physician; When: 1 - 2 days; Reason: Worsening of condition, Recheck today's complaints, Continuance of care, Re-evaluation by your physician. Follow up: Dagoberto Rivera; When: 1 - 2 days; Reason: Worsening of condition, Recheck today's complaints. Problem is chronic. Symptoms have improved. mh7
[2020-04-16 11:00] VITALS: BP 115/59; O2SAT 98
--- NOTE | 2020-04-16 15:06 | RAD REPORT ---
EXAM DESCRIPTION: CT Abdomen and Pelvis With Intravenous Contrast CLINICAL HISTORY: The patient is 85 years old and is Female; ABD PAIN TECHNIQUE: Axial computed tomography images of the abdomen and pelvis with intravenous contrast. S agittal and coronal reformatted images were created and reviewed. This CT exam was performed using one or more of the following dose reduction techniques: automated exposure control, adjustment of t he mA and/or kV according to patient size, and/or use of iterative reconstruction technique. COMPARISON: CT of the abdomen and pelvis April 07, 2020 FINDINGS: LUNG BASES: Atelectasis/scarring within the right lung base is present. ABDOMEN: LIVER: Persistent moderate intrahepatic biliary dilatation is present. GALLBLADDER AND BILE DUCTS: Surgical clips are present in the right upper quadrant, consistent wi th previous cholecystectomy. PANCREAS: Dilatation of the pancreatic duct is noted. SPLEEN: Unremarkable. ADRENALS: Mild hyperplasia of the adrenal glands is present. KIDNEYS AND URETERS: The kidneys enhance symmetrically. Bilateral renal cysts are present, the la rgest measures 1.0 cm on the left. No follow-up imaging is recommended. There is no hydronephrosis or hydroureter of either kidney. No obstructing renal or ureteral calculus is seen. STOMACH AND BOWEL: The stomach is minimally distended. The proximal mid small bowel is decompress ed. Distal small bowel is slightly prominent. A moderate to large amount of stool is present througho ut colon. Scattered colonic diverticula within the left colon is present without surrounding inflamma tion. There is no bowel obstruction. PELVIS: APPENDIX: The appendix is normal in caliber without surrounding inflammation. BLADDER: The bladder is well distended. REPRODUCTIVE: Unremarkable as visualized. ABDOMEN and PELVIS: INTRAPERITONEAL SPACE: Unremarkable. No free air. No significant fluid collection. BONES/JOINTS: Postsurgical change of the proximal right femur is present. Postsurgical change of the lumbar spine with spinal rods and pedicle screws at L2-L3 is noted. The bones are diffusely osteo penic with multiple lucent foci throughout. SOFT TISSUES: The soft tissues are normal. VASCULATURE: Unremarkable. No abdominal aortic aneurysm. LYMPH NODES: Unremarkable. No enlarged lymph nodes. IMPRESSION: 1. Persistent moderate to significant intra and extrahepatic biliary dilatation and di latation of the pancreatic duct. A discrete mass is not seen. However, if not already performed, furt her evaluation with an MRCP and/or ERCP is recommended to exclude underlying mass, stricture, or ston e. 2. Moderate stool burden without obstruction. Colonic diverticulosis 3. Chronic findings as above. Electronically signed by: Ana Cerna MD 04/16/2020 3:57 AM CLOTH BLEACHING RANGE BACK TENDER Due to temporary technical issues with the PACS/Fluency reporting system, reports are being signed by the in house radiologists without review as a courtesy to insure prompt reporting. The interpreting radiologist is fully responsible for the content of the report.
== END 2020-04-16 05:25 | disposition home or self-care (01) ==
LOC: ER 00:30
DX: K83.8 Other specified diseases of biliary tract (principal); K86.89 Other specified diseases of pancreas; E03.9 Hypothyroidism, unspecified; K21.9 Gastro-esophageal reflux disease without esophagitis; Z79.82 Long term (current) use of aspirin; Z88.0 Allergy status to penicillin
CPT/HCPCS: 93005; 85025; 80048; 36415; 80076; 81003; 83690; 74177; 96375; 96374; 99284; Q9967; J2405

== ENCOUNTER 2022-03-13 10:10 | Inpatient (IN) | payer OTHER ==
[2022-03-13 10:12] LABS: Urine Bilirubin NEGATIVE (Negative); Urine Blood Negative (Negative); Urine Clarity Clear (Clear); Urine Color Light-Yellow (Yellow); Urine Glucose NEGATIVE (Negative); Urine Protein NEGATIVE (Negative); Urine Urobilinogen Normal (Normal); Urine pH 6.5 (5.0-7.0)
[2022-03-13 10:14] LABS: Hematocrit 40.5 % (36.0-45.0); Lymphocytes % 5.5 % (15.3-44.8); MCV 93.2 fL (80-100); MPV 9.6 fL (7.6-11.3); RBC Red Blood Cell Count 4.34 M/uL (3.86-4.86)
--- OUTSIDE RECORDS SUMMARY | 2022-03-13 10:14 | XMS REPORT | Continuity of Care Document ---
:1935 Author Organization [facility] t Address [address] [place] [address] Care Team Providers Name Role Phone Laureano Echeverria MD Primary Care Physician Laureano Echeverria V Attending Clinician Unavailable SORIN ARAGON Attending Clinician Unavailable ROBERT DOMÍNGUEZ Attending Clinician Unavailable Physician, No Primary or Family Admitting Clinician Unavaila ROBERT Hernandez Admitting Clinician Unavailable Payers Payer Name Policy Type Policy Number Effective Date Expiration Date S ource MEDICARE A B [id number] 1999 00:00:00 Problems Condition Condition Condition Status Onset Resolution Last Treating Co mments Source Name Details Category Date Date Treatment Clinician Date Solitary Solitary Disease Active [facility] di pulmonary pulmonary 2-03 st nodule nodule 00:00: Hospita 00 l Allergies, Adverse Reactions, Alerts Allergy Allergy Status Severity Reaction(s) Onset Inactive Treating Comm ents Source Name Type Date Date Clinician PENICILL Allergy Active Med Rash 2018-[address] [facility] Penicill Propensi Active Rash 2018-05 [facility] ty to 2-10 [facility] adverse 00:00: Hospita reaction 00 l s to drug Family History Family Member Diagnosis Comments Start Date Stop Date Source Natural brother Lung cancer [facility] Natural father Heart disease [facility] Natural mother Breast cancer [facility] Natural sister Breast cancer [facility] sister Stroke [facility] Social History Social Habit Start Date Stop Date Quantity Comments Source History of Current smoker [facility] use [facility] Alcohol intake 2019-08-05 2019-08-05 Ex-drinker [facility] 00:00:00 00:00:00 (finding) Hospital Cigarette 2019-05-04 2019-05-04 [facility] pack-years 00:00:00 00:00:00 Hospital Tobacco use and 2019-05-04 2019-05-04 Smokeless tobacco [facility] exposure 00:00:00 00:00:00 non-user Hospital Tobacco Comment 2019-05-04 2019-05-04 Smoked four years [facility] 00:00:00 00:00:00 in early twenties Hospita l Alcohol Comment 2019-05-04 2019-05-04 Occasional wine. 2 [facility] 00:00:00 00:00:00 to 3 glasses a Hospital month. Sex Assigned At [birth year] F [facility] 00:00:00 00:[facility]:00 Hospital Smoking Status Start Date Stop Date Source Ex-smoker 2019-05-04 00:00:00 2019-05-04 [facility] Medications Ordered Filled Start Stop Current Ordering Indication Dosage Frequency Signature Comments Components Source Medication Medication Date Date Medication? Clinician (SIG) Name Name magnesium 2020-0 Yes [facility] oxide 2-12 st (MAG-OX) 10:33: Hospita 400 mg 37 l (241.3 mg magnesium) tablet aspirin 2019-0 Yes 81mg QD Take 81 mg Meth antione (ECOTRIN) 2-[address] 81 MG 10:33: daily. Hospita enteric 37 l coated tablet cholecalcif 2020-0 Yes Take by Met hani romain, 2-[address] vitamin D3, 10:33: Hospit a (VITAMIN D3 37 l ORAL) Bifidobacte 2020-0 Yes Take by Met hani rium 2-[address] infantis 10:33: Hospita (ALIGN 37 l ORAL) multivitami 2020-0 Yes 1{tbl} QD Take 1 [facility] with 2-[address] minerals 10:33: mouth Hospita tablet 37 daily. l famotidine 2020-0 Yes [facility] (PEPCID) 40 1-16 st MG tablet 00:00: Hospita 00 l torsemide 2018- Yes [facility] (DEMADEX) 2-07 st 10 MG 00:00: Hospita tablet 00 l levothyroxi 2018-05 Yes 75ug QD Take 75 Met hodi ne 1-[address] (SYNTHROID) 00:00: mouth Hospi ta 75 mcg 00 every l tablet morning. KLOR-CON 10 2018-05 Yes 10meq Take 10 Me [facility] 10 mEq CR 1-[address] tablet 00:00: mouth. Hospita 00 l Immunizations Ordered Immunization Filled Immunization Date Status Commen ts Source Name Name PFIZER COVID-19 MRNA 2020-07-03 Completed [facility]ACC[facility] 00:00:00 Hospital PFIZER COVID-19 MRNA 2020-06-12 Completed [facility] VACCIN[facility] 00:00:00 Hospital FLUZONE QUAD 2019-02-17 Completed [facility] 00:00:00 [facility] Pneumococcal, 2017-04-25 Completed [facility] Unspecified 00:00:00 Hospital Pneumococcal, 2016-04-25 Completed [facility] Unspecified 00:00:00 Hospital Procedures This patient has no known procedures. Plan of Care Planned Activity Planned Date Details Comments Source Future Scheduled 2022-02-13 HEPATITIS B VACCINES [facility] Test 03:07:02 (1 of 3 - 3-dose series) [code = HEPATITIS B VACCINES (1 of 3 - 3-dose series)] Future Scheduled 2022-02-13 SHINGLES VACCINES (1 [facility] Test 03:07:02 of 2) [code = SHINGLES VACCINES (1 of 2)] Future Scheduled 2022-02-13 65+ PNEUMOCOCCAL [facility] Test 03:07:02 VACCINE (1 - PCV) [code = 65+ PNEUMOCOCCAL VACCINE (1 - PCV)] Future Scheduled 2022-02-13 COVID-19 VACCINE (3 - [facility] Test 03:07:02 Booster for Pfizer series) [code = COVID-19 VACCINE (3 - Booster for Pfizer series)] Future Scheduled 2022-02-13 INFLUENZA VACCINE [facility] Test 03:07:02 [code = INFLUENZA VACCINE] Encounters Start End Encounter Admission Attending Care Care Encounter Source Date/Time Date/Time Type Type Clinicians Facility Department ID 2020-09-20 2020-09-20 Out[facility] [id number] [facility] 12:00:00 12:00:[address] [place] [address] 2020-07-03 2020-07-03 Outpatient [facility] [id number] [place] 00:00:00 00:00:[address] 2020-06-12 2020-06-12 Outpatient [facility] [id number] [place] 00:00:00 00:00:[address] 2020-04-12 2020-04-12 [facility] [id number] [facility] 00:00:00 00:00:00 SORIN 2019-08-04 2019-08-04 Outpatient ROBERT DOMÍNGUEZ [facility] [id number] [place] 00:00:00 00:00:[address] 2019-06-28 2019-06-30 Inpatient ROBERT DOMÍNGUEZ [facility] [id number] [place] 00:00:00 00:00:[address] 2019-06-15 2019-06-15 Outpatient ROBERT DOMÍNGUEZ [facility] [id number] [place] 00:00:00 00:00:[address] 2019-06-15 2019-06-15 Outpatient ROBERT DOMÍNGUEZ [facility] [id number] [place] 00:00:00 00:00:[address] 2019-05-07 2019-05-07 Outpatient ROBERT DOMÍNGUEZ [facility] [id number] [place] 00:00:00 00:00:[address] 2019-05-04 2019-05-04 Outpatient ROBERT DOMÍNGUEZ [facility] [id number] [place] 00:00:00 00:00:[address] Results Test Description Test Time Test Comments Results Result Sour e Comments CT, ABDOMEN 2020-04-12 Unlisted Reason 16:55:00 for Exam - Click Yes and [facility] Enter Reason [facility] Below->No CENTERName: CELSO MADISON : 1935 Sex: F FI NAL REPORT CT of the abdomen, with and [...] patient's spinal hardware. Sigmoid diverticulosis. Signed: Peggy Suort Verified Date/Time: 04/12/2020 16:55:23 Reading Location: [address] Consult Reading Room -CREATININE 2020-04-12 14:30:00 Test Item Value Reference Range Interpretation Comme nts POC-CREATININE (ROSSY) 0.6 mg/dL 0.6-1.3 : HARD[facility] 7200 (test code = 1859) [facility] [id number]: Nursing Assistant /Health Safety Specialist ID = [id number] for TYLER CRUZ POC-EGFR (MANAKER) (test 95 mL/min/1.73M2 code = 1860)
[2022-03-13 10:17] LABS: Protime INR 0.95
[2022-03-13 10:26] LABS: SARS-CoV-2 Antigen Rapid Res Negative (Negative)
[2022-03-13 10:50] LABS: Magnesium 2.1 mg/dL (1.8-2.4); Phosphorus 2.2 mg/dL (2.5-4.9); Potassium 3.6 mmol/L (3.5-5.1); Thyroid Stimulating Hormone 0.467 uIU/mL (0.360-3.740)
[2022-03-13] MEDS ORDERED: METRONIDAZOLE 500mg IVPB 500 MG/100 ML BAG IV SCH (11:30)
[2022-03-13] MEDS ORDERED: DIPHENHYDRAMINE 25 MG TAB/CAP PO PRN (12:00)
[2022-03-13] MEDS ORDERED: CEFOXITIN 1 GM in NA CHLORIDE 0.9% 50 ML IVPB SCH (12:00)
[2022-03-13] MEDS ORDERED: LOPERAMIDE HCL 2 MG CAPSULE PO PRN (12:00)
[2022-03-13] MEDS ORDERED: ONDANSETRON 4 MG/2 ML VIAL IV PRN (12:00)
[2022-03-13] MEDS ORDERED: ONDANSETRON 4 MG (ODT) TAB PO PRN (12:00)
[2022-03-13] MEDS ORDERED: POLYETHYL GLY 3350 17 GM/DOSE PO PRN (12:00)
--- NOTE | 2022-03-13 12:13 | RAD REPORT ---
EXAM DESCRIPTION: CT - Abdomen Pelvis W Contrast - 03/13/2022 11:54 am CLINICAL HISTORY: r/o appy COMPARISON: Abdomen Pelvis W Contrast dated 04/16/2020 TECHNIQUE: Biphasic, helical CT imaging of the abdomen and pelvis was performed following 100 ml non -ionic IV contrast. No oral contrast administered. All CT scans are performed using dose optimization technique as appropriate and may include automated exposure control or mA/KV adjustment according to patient size. FINDINGS: No suspicious findings in the lung bases. The liver, spleen, and pancreas show no suspicious findings. Gallbladder is absent. Biliary tree dila tation is present but not outside of the range of normal for a post cholecystectomy patient. The bili rommel tree dilatation is less prominent than seen on the March 2020 study. Symmetric renal function is seen with no hydronephrosis or suspicious renal mass. No pyelonephritis o r acute parenchymal process. No bladder abnormalities. No adrenal abnormalities. No uterine or primar y ovarian process seen. No gastric dilatation gastric wall thickening. Proximal small bowel loops are unremarkable. There is more prominent fluid-filled distal small bowel loops some which have wall thickening. This includes t he terminal ileum. Prior imaging demonstrated the patient had a very elongated and tortuous appendix. No similar normal structure identifiable. There is a tubular structure in the right lower quadrant t hat is not definitively a small bowel loop. Acute appendicitis cannot be excluded. Focal area of narr owing is seen in the right-side transverse colon. No free air or pneumatosis. No abnormal free fluid collection. No hernia, mass or bulky lymphadenop athy. No suspicious bony findings. IMPRESSION: The patient has a mixed presentation with focal wall thickening in the right-side transv erse colon with prominent fluid-filled distal small bowel loops some of which have mild wall thickeni ng. These findings are more consistent with a enteritis. The patient's normal tortuous and elongated appendix seen on prior imaging is not identifiable. There is a tubular structure in the right lower quadrant that is concerning for an enlarged, abnormal appe ndix. Appendicitis cannot be excluded and needs correlation with clinical and laboratory findings. If furt her clarification is needed prior to possible surgical intervention, the exam can repeated in the mid abdomen lower pelvis following oral contrast administration to opacify the distal small bowel and ri ght-side colon.
--- NOTE | 2022-03-13 12:14 | ER ---
Nurse's Notes [facility] Name: Parvin Manzo Age: 87 yrs Sex: Female : 1935 Arrival Date: 03/13/2022 Time: 10:13 Bed IW4 Private MD: Laureano Echeverria V Diagnosis: Abdominal pain, unspecified Presentation: 03/13 10:55 Chief complaint: Patient states: Sent from Dr. Echeverria's office to r/o appendicitis. Pt ld1 reports intermittent RLQ pain 2-3 days. Coronavirus screen: At this time, the client does not indicate any symptoms associated with coronavirus-19. Ebola Screen: No symptoms or risks identified at this time. Initial Sepsis Screen: Does the patient meet any 2 criteria? No. Patient's initial sepsis screen is negative. Does the patient have a suspected source of infection? No. Patient's initial sepsis screen is negative. Risk Assessment: Do you want to hurt yourself or someone else? Patient reports no desire to harm self or others. Onset of symptoms was March 13, 2022. 10:55 Method Of Arrival: Wheelchair ld1 10:55 Acuity: ORI 3 ld1 Triage Assessment: 11:00 General: Appears in no apparent distress. comfortable, Behavior is calm, cooperative, ld1 appropriate for age. Pain: Complains of pain in right upper quadrant and right lower quadrant Pain does not radiate. Pain currently is 3 out of 10 on a pain scale. at worst was 10 out of 10 on a pain scale. Pain: Quality of pain is described as sharp, shooting, throbbing, Pain began suddenly, Is intermittent. EENT: No signs and/or symptoms were reported regarding the EENT system. Neuro: Level of Consciousness is awake, alert, obeys commands, Oriented to person, place, time, situation, Appropriate for age. Cardiovascular: Capillary refill < 3 seconds Patient's skin is warm and dry. Respiratory: Airway is patent Respiratory effort is even, unlabored. GI: Abdomen is flat, non-distended, Reports lower abdominal pain. : No signs and/or symptoms were reported regarding the genitourinary system. Derm: No signs and/or symptoms reported regarding the dermatologic system. Musculoskeletal: No signs and/or symptoms reported regarding the musculoskeletal system. 11:00 GI: Reports nausea. ld1 Historical: - Allergies: 10:57 PENICILLINS (Hives); ld1 - Home Meds: 10:57 amitriptyline 10 mg Oral tab nightly [Active]; levothyroxine oral [Active]; potassium ld1 chloride 10 mEq Oral cpER 1 cap Every other day [Active]; torsemide 10 mg Oral tab 1 tab Every other day [Active]; ursodiol 300 mg Oral cap 2 times per day [Active]; - PMHx: 10:57 GERD; Hypothyroidism; Hypercholesterolemia; ld1 - PSHx: 10:57 Cholecystectomy; Back surgery; Neck surgery; Lung surgery; ld1 11:00 Right hip surgery; ld1 - Immunization history:: Adult Immunizations up to date, Client reports receiving the 2nd dose of the Covid vaccine. - Social history:: Smoking status: Patient denies any tobacco usage or history of. Patient/guardian denies using alcohol. Vital Signs: 10:55 BP 114 / 62; Pulse 63; Resp 16; Temp 97.6(TE); Pulse Ox 99% on R/A; Weight 63.5 kg; ld1 Height 5 ft. 2 in. (157.48 cm); Pain 3/10; 10:55 Body Mass Index 25.61 (63.50 kg, 157.48 cm) ld1 ED Course: 10:13 Patient arrived in ED. as 10:14 Laureano Echeverria MD is Private Physician. as 10:57 Triage completed. ld1 11:00 Arm band placed on right wrist. ld1 11:56 Abdomen In Process Unspecified. EDMS 12:00 Inserted saline lock: 22 gauge in right antecubital area, using aseptic technique. ss ,using aseptic technique. Inserted by AMBER Mims. 12:13 Laureano Echeverria MD is Hospitalizing Provider. ss 12:14 No provider procedures requiring assistance completed. ss Administered Medications: No medications were administered Outcome: 12:14 Decision to Hospitalize by Provider. ss 12:15 Admitted to Med/surg accompanied by tech, family with patient, room 413, Other DIRECT ss ADMIT 12:15 Condition: good 12:15 Instructed on the need for admit. 12:16 Patient left the ED. ss Signatures: Dispatcher [employer] Megha [place] Shelby, RN RN ss Dibbern, Aisha, RN RN ld1
--- NOTE | 2022-03-13 13:22 | RAD REPORT ---
EXAM DESCRIPTION: RAD - Chest Pa And Lat (2 Views) - 03/13/2022 1:13 pm CLINICAL HISTORY: abd pain Chest pain. COMPARISON: Chest Single View dated 01/16/2019; Chest Single View dated 01/13/2019; Chest Pa And Lat ( 2 Views) dated 09/21/2017; CHEST SINGLE VIEW dated 01/28/2009 TECHNIQUE: PA and lateral views of the chest were obtained. FINDINGS: The lungs are hyperexpanded compatible with COPD. The heart is upper limit of normal in si ze. No fracture or aggressive bony process. Cervical hardware plate. IMPRESSION: COPD without acute process identified. The USPSTF recommends annual screening for lung cancer with low-dose CT (LDCT) in adults aged 50 to 8 0 years who have a 20 pack-year smoking history and currently smoke or have quit within the past 15 y ears.
[2022-03-13 13:50] VITALS: BMI 25.6
[2022-03-13] MEDS: NACHLORIDE 0.45% 1,000 ML IV SCH (14:03)
[2022-03-13] MEDS ORDERED: CEFOXITIN SODIUM 1 GM/VIAL ONE (15:05)
[2022-03-13] MEDS ORDERED: NA CHLORIDE 0.9% 50 ML ONE (15:06)
[2022-03-13] MEDS ORDERED: FENTANYL CITR 100 MCG/2 ML ONE (16:11)
[2022-03-13] MEDS ORDERED: GLYCOPYRROLATE 0.2 MG/ML SYR ONE ×2 (16:11→18:36)
[2022-03-13] MEDS ORDERED: NEOSTIGMINE 1 MG/ML -5 ML ONE (16:11)
[2022-03-13] MEDS ORDERED: dexAMETHasone 4 MG/ML VIAL ONE (16:11)
[2022-03-13] MEDS ORDERED: ROCURONIUM 50 MG/5 ML VIAL IV ONE (16:12)
[2022-03-13] MEDS ORDERED: Ringers Lactate 1,000 ML IV ONE (16:48)
[2022-03-13] MEDS ORDERED: SCOPOLAMINE HYDROBROMIDE PATCH TD ONE (16:57)
[2022-03-13] MEDS ORDERED: MORPHINE 10 MG/ML VIAL ONE (17:03)
[2022-03-13 17:20] LABS: Urine Bilirubin NEGATIVE (Negative); Urine Blood Negative (Negative); Urine Clarity Clear (Clear); Urine Color Colorless (Yellow); Urine Glucose NEGATIVE (Negative); Urine Protein NEGATIVE (Negative); Urine Urobilinogen Normal (Normal); Urine pH 6.5 (5.0-7.0)
[2022-03-13] MEDS ORDERED: KETOROLAC 30 MG/ML INJ ONE (18:47)
--- NOTE | 2022-03-13 19:17 | P.BOP ---
Preoperative diagnosis: acute appendicitis Postoperative diagnosis: same, suppurative appendicitis Primary procedure: Laparoscopic appendectomy Estimated blood loss: <10cc Specimen: wendy Findings: acute suppurative appendicitis Anesthesia: General Complications: None Transferred to: Recovery Room Condition: Good
[2022-03-13] MEDS ORDERED: MORPHINE 2 MG/ML SYR IV PRN (19:21)
[2022-03-13] MEDS ORDERED: HYDROCODONE/APAP 5/325 MG TAB PO PRN (19:21)
[2022-03-13 20:00] VITALS: O2SAT 96
[2022-03-13] MEDS ORDERED: ursodioL 300 MG CAP PO SCH (21:00)
[2022-03-13] MEDS: GABAPENTIN 300 MG CAP PO SCH (21:21)
[2022-03-13] MEDS: AMITRIPTYLINE 10 MG TAB PO SCH (21:27)
[2022-03-13 22:04] LABS: Bilirubin Direct 1.1 mg/dL (0-0.2); Bilirubin Total 1.8 mg/dL (0.2-1.0); Magnesium 1.9 mg/dL (1.8-2.4); Protein, Total 6.9 g/dL (6.4-8.2); Thyroid Stimulating Hormone 1.42 uIU/mL (0.360-3.740)
--- NOTE | 2022-03-13 22:37 | CON ---
Date of Consultation: 03/13/2022 Diagnosis: Acute abdominal pain. History Of Present Illness: This is the case of an 87-year-old patient who comes to us complaining o f right lower quadrant tenderness associated with nausea. This has been happening for the last 2-3 d ays. She does not remember any trauma. Denies any pain like this before. She denies any dysuria, h ematuria, hematochezia, or melena. Denies any recent traveling out of the country. Denies any famil y member sick at home. The patient was admitted to the hospital by the primary doctor and a surgical consult was obtained for possible surgical intervention. Review of Systems: See above. Also denies any shortness of breath or any chest pain. 10 points otherwise unremarkable. Last colonoscopy she states could not be completed through the entire colon because of what could b e a kink on the intestines as per patient's description that did not allow Dr. Marr to go all the w ay through. Allergies: PENICILLIN. Medications: Reviewed including amitriptyline and also levothyroxine. Past Medical History: Hypothyroidism, hypercholesterolemia, and GERD. Past Surgical History: Cholecystectomy, back surgery, neck surgery, lung surgery, and right hip surg josselin. Social History: She does not smoke. She does not drink alcohol. Physical Examination: General: The patient is awake and alert. Eyes: Pupils are equal and reactive. Anicteric. Neck: Supple. Chest: Clear. Abdomen: Right lower quadrant tenderness with guarding. Pelvic: Deferred. Breast: Deferred. Rectal: Deferred. Extremities: Good capillary refill. Laboratory Data: Blood work shows a WBC count of 18 with hemoglobin of 13 and platelets of 261. Pot assium 3.6 and creatinine is 0.58. CAT scan of the abdomen and pelvis interpreted by Dr. Douglass as a tubular structure in the right lower quadrant that could be consistent with acute appendicitis. Al so had some other areas of intestines with mild inflammation. Assessment: This is an 87-year-old patient with intractable right lower quadrant abdominal pain, gua rding, peritonitis present with a WBC count of 18, and a CAT scan that suggests acute appendicitis si nce cannot be excluded and also the presence of enteritis. The benefits, alternatives, and risks of laparoscopic and possible open appendectomy were fully explained to the patient, which include, but a re not limited to infection, bleeding, damage to adjacent structures, anesthesia complication, negati ve appendix, myocardial infarction, and even . She also understands this might not relieve any symptoms and she might need more than one surgical intervention. The case was booked emergently in O R. We are going to continue with the antibiotics and we recommend that patient once again to discuss the colonoscopy with Dr. Marr to see if there is any chance, after several weeks after healing fro m this process, to repeat that colonoscopy so we can visualize the ascending colon and the cecum. LYUBOV/SALEEM Voice ID: [id number] Report ID: [id number]
[2022-03-14] MEDS: METRONIDAZOLE 500mg IVPB 500 MG/100 ML BAG IV SCH ×2 (01:45→08:26)
[2022-03-14] MEDS: CEFOXITIN 1 GM in NA CHLORIDE 0.9% 50 ML IVPB SCH ×2 (01:45→08:26)
[2022-03-14] MEDS: NACHLORIDE 0.45% 1,000 ML IV SCH ×2 (02:52→08:23)
--- NOTE | 2022-03-14 04:13 | OP ---
Date of Procedure: 03/13/2022 Surgeon: Yfn Bartholomew MD Preoperative Diagnosis: Acute appendicitis. Postoperative Diagnoses: Acute appendicitis plus acute suppurative appendicitis. Procedure: Laparoscopic appendectomy. Anesthesia: General plus local. Complications: None. Findings: Acute suppurative appendicitis. Indications: This is the case of an 87-year-old patient, who comes to us with above diagnoses. Full y explained the benefits, alternatives, and risks of emergent laparoscopic possible open appendectomy , which include, but not limited to infection, bleeding, damage to adjacent structures, anesthesia co mplication, OK, even . She also understands this may not relieve any symptoms. She might need more than one surgical intervention. She understood, signed a consent. Description Of Procedure: Patient brought to the operating room and placed in supine position. Anes thesia was done without complication. Abdominal area was prepped and draped in a sterile fashion. M arcaine 0.5% was injected for local anesthetic, followed by sharp incision of the skin in the infraum bilical region. Incision was carried down to fascia, which was opened under direct vision. Vicryl # 1 placed inside the fascia. Marcie trocar was carefully introduced. Pneumoperitoneum was obtained. I placed 3 more trocars, 5 mm 2 of them in the suprapubic and left lower quadrant area under direct visualization. This allowed me to visualize the area of the appendix. We noticed the patient to hav e a suppurative appendix with small bowel loops just against the appendix itself as a way to wall off this disease. In the ascending colon and the terminal ileum, I did not see any masses in that regio n, so we carefully the appendix. We noticed the base of the appendix to be spared from thi s disease, so we created a window and transected that with an Endo-PATRICIA 45 mm nonvascular device and t hen the mesoappendix with Endo-PATRICIA 45 mm vascular and further hemostasis was obtained with the help o f 5 mm hemoclips. Appendix removed from abdominal cavity using an EndoCatch through the umbilical in cision. The area was profusely irrigated. So, the suppurative findings were completely clean, at le ast grossly. At that moment, I proceeded to put the omentum over the surgical site and then after th at to remove the trocars under direct vision, deflated the pneumoperitoneum. Closed the fascia with #1 Vicryl. Irrigated subcutaneous tissue, closed that with 3-0 chromic, and skin with roxanna. Spon ge count, instrument counts correct. Patient tolerated the procedure well. Patient sent to recovery in stable condition. LYUBOV/ANIRUDHL Voice ID: [id number] Report ID: [id number]
[2022-03-14] MEDS: LEVOTHYROXINE SOD 0.075 MG TAB PO SCH (06:03)
[2022-03-14 06:14] LABS: Absolute Lymphocytes (CBC) 0.6 K/uL (0.7-4.9); Hematocrit 33.9 % (36.0-45.0); Lymphocytes % 4.2 % (15.3-44.8); MCV 93.8 fL (80-100); MPV 9.4 fL (7.6-11.3); RBC Red Blood Cell Count 3.61 M/uL (3.86-4.86)
[2022-03-14 06:28] LABS: Potassium 3.9 mmol/L (3.5-5.1)
[2022-03-14 07:06] LABS: Blood Morphology Comment NOT SEEN (NOT SEEN); Platelet Estimate ADEQ; White Blood Cell Scan OK (OK)
[2022-03-14] MEDS ORDERED: POTASSIUM CL SA 10 MEQ TAB PO ONE (07:30)
[2022-03-14] MEDS: FAMOTIDINE 20 MG TAB PO SCH (08:25)
[2022-03-14] MEDS: GABAPENTIN 300 MG CAP PO SCH ×2 (08:25→21:48)
[2022-03-14] MEDS ORDERED: HOME MED 1 EA UNK (Famotidine [Pepcid] 40 MG Tablet) PO SCH (09:00)
[2022-03-14] MEDS ORDERED: ENOXAPARIN 40 MG/0.4 ML SQ SCH (09:00)
[2022-03-14] MEDS: ACETAMINOPHEN 325 MG TABLET PO PRN (11:30)
--- NOTE | 2022-03-14 16:18 | EKG ---
Test Date: 2022-03-13 Test Time: 13:18:42 Teen Counselor: GERARDO MEASUREMENT RESULTS: Intervals: Rate: 70 ME: 148 QRSD: 76 QT: 394 QTc: 425 [place]: P: 70 ME: 148 QRS: 134 T: 80 INTERPRETIVE STATEMENTS: Normal sinus rhythm Right axis deviation Low voltage QRS Septal infarct, age undetermined Abnormal ECG Compared to ECG 04/16/2020 01:15:11 Low QRS voltage now present Sinus bradycardia no longer present Myocardial infarct finding still present Electronically Signed On 03-14-22 16:15:29 CDT by Wilmer Olvera
[2022-03-14] MEDS: metroNIDAZOLE 500 MG TABLET PO SCH ×2 (18:06→21:47)
[2022-03-14] MEDS: CIPROFLOXACIN HCL 500 MG TAB PO SCH ×2 (18:06→21:47)
--- NOTE | 2022-03-14 19:54 | P.PN ---
Subjective Date of Service: 03/14/22 Chief Complaint: SP APPENDECTOMY Subjective: Improving CELSO HAD APPENDICITS ON CT SCAN WITH INFLAMMATION AROUND. I CALLED DR. WHTIEHEAD URGENTLY AND HE CAME TO DO SURGERY LAST PM. HE CONFIRMIED APPENDICITIS WITHOUT PERFORATION AND SHE HAS DONE REALLY WELL WITH SURGERY. HER IV CAME OUT AND SHE IS DOING GREA. SHE HAS POOR IV ACCESS. SHE WILL BE ON ORAL ABX. WBC HAS COME DOWN FROM 18 TO 13K. Physical Examination - Vital Signs Temperature: 98.7 F Blood Pressure: 118/62 Pulse: 50 Respirations: 14 Pulse Ox (%): 97 - Physical Exam General: In no apparent distress, Oriented x3 HEENT: Atraumatic, PERRLA, EOMI Neck: Supple, JVD not distended Respiratory: Clear to auscultation bilaterally, Normal air movement Cardiovascular: Regular rate/rhythm, Normal S1 S2 Gastrointestinal: Normal bowel sounds, No tenderness Musculoskeletal: No tenderness Integumentary: No rashes Neurological: Normal speech, Normal tone, Normal affect Lymphatics: No axilla or inguinal lymphadenopathy - Studies Laboratory Data (last 24 hrs) 03/14/22 05:43: Sodium 134 L, Potassium 3.9, BUN 11, Creatinine 0.59, Glucose 140 H 03/14/22 05:43: WBC 13.90 H, Hgb 11.5 L D, Hct 33.9 L, Plt Count 207 03/13/22 20:58: Magnesium 1.9, Total Bilirubin 1.8 H, AST 104 H, ALT 90 H, Alkaline Phosphatase 118 H Microbiology Data (last 24 hrs): 03/13/22 20:58 Blood - Blood Anaerobic Blood Culture - Final Medications List Reviewed: Yes Assessment And Plan - Current Problems (Diagnosis) (1) Acute appendicitis Current Visit: Yes Status: Acute Plan: ABOVE LOCAL PERITONITIS. ORAL ABX. DC IN AM.
[2022-03-14] MEDS: AMITRIPTYLINE 10 MG TAB PO SCH (21:47)
[2022-03-15 04:54] LABS: Absolute Lymphocytes (CBC) 1.4 K/uL (0.7-4.9); Hematocrit 31.2 % (36.0-45.0); Lymphocytes % 10.6 % (15.3-44.8); MPV 9.9 fL (7.6-11.3); RBC Red Blood Cell Count 3.35 M/uL (3.86-4.86)
[2022-03-15 05:12] LABS: Potassium 3.9 mmol/L (3.5-5.1)
[2022-03-15] MEDS: LEVOTHYROXINE SOD 0.075 MG TAB PO SCH (06:24)
[2022-03-15] MEDS ORDERED: POTASSIUM CL SA 10 MEQ TAB PO ONE (09:00)
[2022-03-15] MEDS: FAMOTIDINE 20 MG TAB PO SCH ×2 (09:33→09:40)
[2022-03-15] MEDS: GABAPENTIN 300 MG CAP PO SCH ×2 (09:34→20:49)
[2022-03-15] MEDS: metroNIDAZOLE 500 MG TABLET PO SCH ×3 (09:44→20:47)
[2022-03-15] MEDS: CIPROFLOXACIN HCL 500 MG TAB PO SCH (09:44)
[2022-03-15] MEDS: ACETAMINOPHEN 325 MG TABLET PO PRN ×2 (09:47→20:47)
[2022-03-15] MEDS ORDERED: NACHLORIDE 0.45% 1,000 ML IV SCH (10:29)
[2022-03-15] MEDS: NACHLORIDE 0.45% 1,000 ML IV SCH (12:14)
--- NOTE | 2022-03-15 12:21 | P.PN ---
Subjective Date of Service: 03/15/22 Chief Complaint: CONFUSION TODAY. Subjective: Tolerating diet CELSO TODAY IS CONFUSED. SHE HAS MILD MEMORY LOSS FROMBEFORE. IN THE HOSPITAL SHE THINKS SHE IS STORAGE ROOM AND NO ONE IS TAKING CARE OF HER. SURGICALLY SHE IS DOING GOOD. Review of Systems 10-point ROS is otherwise unremarkable General: Weakness Physical Examination - Vital Signs Temperature: 97.6 F Blood Pressure: 129/58 Pulse: 52 Respirations: 16 Pulse Ox (%): 96 - Physical Exam General: Oriented x1, Confused, Delirious HEENT: Atraumatic, PERRLA, EOMI Neck: Supple, JVD not distended Respiratory: Clear to auscultation bilaterally, Normal air movement Cardiovascular: Regular rate/rhythm, Normal S1 S2 Gastrointestinal: Normal bowel sounds, No tenderness Musculoskeletal: No tenderness Integumentary: No rashes Neurological: Normal speech, Normal tone, Normal affect Lymphatics: No axilla or inguinal lymphadenopathy - Studies Microbiology Data (last 24 hrs): 03/13/22 20:58 Blood - Blood Anaerobic Blood Culture - Final Medications List Reviewed: Yes Assessment And Plan - Current Problems (Diagnosis) (1) Acute appendicitis Current Visit: Yes Status: Acute Plan: ABOVE LOCAL PERITONITIS. ORAL ABX. DC IN AM. (2) Altered mental state Current Visit: Yes Status: Acute Plan: THIS CAN HAPPED FOR SOMEONE WITH BASELINE MEMORY ISSUES AND BEING ON MEDS LIKE MORPHINE ,NORCO ETC ALSO WITH HYPONATREMIA. I WILL GIVE HER THIAMINE IV AND WORK DC ALL NARCOTICS. Qualifiers: Altered mental status type: delirium Qualified Code(s): R41.0 - Disorientation, unspecified (3) Hyponatremia Current Visit: Yes Status: Acute Plan: CHECK S OSM U OSM. U SODIUM. MAY HAVE SIADH.
[2022-03-15 14:59] LABS: Potassium 4.6 mmol/L (3.5-5.1)
[2022-03-15] MEDS: SODIUM CHLORIDE 1 GM TAB PO SCH (16:44)
[2022-03-15] MEDS: CIPROFLOXACIN HCL 250 MG TAB PO SCH ×2 (16:44→20:49)
[2022-03-15] MEDS ORDERED: METRONIDAZOLE 500mg IVPB 500 MG/100 ML BAG IV SCH (17:00)
[2022-03-15] MEDS ORDERED: CEFOXITIN 1 GM in NA CHLORIDE 0.9% 50 ML IVPB SCH (17:00)
[2022-03-15 17:36] LABS: Thyroid Stimulating Hormone 1.65 uIU/mL (0.360-3.740)
[2022-03-15] MEDS: AMITRIPTYLINE 10 MG TAB PO SCH (20:47)
[2022-03-15] MEDS: THIAMINE HCL 100 MG TABLET PO SCH (20:49)
[2022-03-16] MEDS: NACHLORIDE 0.45% 1,000 ML IV SCH (00:59)
[2022-03-16 04:38] LABS: Absolute Lymphocytes (CBC) 1.7 K/uL (0.7-4.9); Lymphocytes % 24.9 % (15.3-44.8); MPV 10.2 fL (7.6-11.3); RBC Red Blood Cell Count 3.44 M/uL (3.86-4.86)
[2022-03-16 04:54] LABS: Potassium 4.1 mmol/L (3.5-5.1)
[2022-03-16] MEDS: LEVOTHYROXINE SOD 0.075 MG TAB PO SCH (05:24)
[2022-03-16] MEDS: SODIUM CHLORIDE 1 GM TAB PO SCH (08:00)
[2022-03-16] MEDS: THIAMINE HCL 100 MG TABLET PO SCH (08:50)
[2022-03-16] MEDS: ACETAMINOPHEN 325 MG TABLET PO PRN (08:50)
[2022-03-16] MEDS: GABAPENTIN 300 MG CAP PO SCH (08:50)
[2022-03-16] MEDS: CIPROFLOXACIN HCL 250 MG TAB PO SCH (08:50)
[2022-03-16] MEDS: metroNIDAZOLE 500 MG TABLET PO SCH (08:50)
[2022-03-16] MEDS ORDERED: THIAMINE 200 MG/2 ML INJ IVP SCH (09:00)
--- NOTE | 2022-03-16 11:26 | P.DS ---
Admission Date: 03/14/22 Discharge Date: 03/16/22 Disposition: ROUTINE DISCHARGE Discharge Condition: FAIR Reason for Admission: CONFUSION TODAY. - Problems (1) Acute appendicitis Current Visit: Yes Status: Acute (2) Altered mental state Current Visit: Yes Status: Acute Qualifiers: Altered mental status type: delirium Qualified Code(s): R41.0 - Disorientation, unspecified (3) Hyponatremia Current Visit: Yes Status: Acute Hospital Course: CELSO COMES WITH ACUTE APPENEDICITIS AND DID WELL. YESTERDAY I WAS GOING TO DISCHARGE HER BUT SHE WAS VERY CONFUSED. I SUSPECTED NARCOTIS AND HYPONATREMIA TO BE THE REASON. WE HAD POOR IV ACCESS SO I DECIDED TO TREAT THIS WITHOUT IV WITH SALINE TABLETS, ORAL THIAMINE AND FLUID RESTRICTION SHE HAS HAD SIADH BEFORE FOR SHORT DURATION. ONCE AGAIN SHE DID GREAT AND NOW SHE IS BACK TO NORMAL, ABLE TO AMBULATE, CONVERSE WELL AND SODIUM IS NORMAL. SHE WILL GO HOME ON TWO ANTIBIOTICS Vital Signs/Physical Exam: Temp Pulse Resp BP Pulse Ox 98.5 F 53 16 138/61 96 03/16/22 08:00 03/16/22 08:00 03/16/22 08:00 03/16/22 08:00 03/16/22 08:00 Laboratory Data at Discharge: WBC 6.70 K/uL (4.3-10.9) 03/16/22 03:28 Hgb 10.9 g/dL (12.0-15.0) L 03/16/22 03:28 Hct 32.0 % (36.0-45.0) L 03/16/22 03:28 Plt Count 203 K/uL (152-406) 03/16/22 03:28 PT 10.4 SECONDS (9.5-12.5) 03/13/22 09:43 INR 0.95 03/13/22 09:43 APTT 28.2 SECONDS (24.3-36.9) 03/13/22 09:43 Sodium 134 mmol/L (136-145) L D 03/16/22 03:28 Potassium 4.1 mmol/L (3.5-5.1) 03/16/22 03:28 BUN 11 mg/dL (7-18) 03/16/22 03:28 Creatinine 0.59 mg/dL (0.55-1.3) 03/16/22 03:28 Glucose 98 mg/dL (74-106) 03/16/22 03:28 Phosphorus 2.2 mg/dL (2.5-4.9) L 03/13/22 09:43 Magnesium 1.9 mg/dL (1.8-2.4) 03/13/22 20:58 Total Bilirubin 1.8 mg/dL (0.2-1.0) H 03/13/22 20:58 AST 104 U/L (15-37) H 03/13/22 20:58 ALT 90 U/L (12-78) H 03/13/22 20:58 Alkaline Phosphatase 118 U/L (45-117) H 03/13/22 20:58 Home Medications: Levothyroxine Sodium 75 mcg PO DAILY 01/13/19 Potassium Chloride [Klor-Con 10] 10 meq PO DAILY 01/13/19 Torsemide 10 mg PO DAILY 01/13/19 Amitriptyline HCl 10 mg PO BEDTIME 03/13/22 Cholecalciferol (Vitamin D3) [Vitamin D3] 1,000 unit PO DAILY 03/13/22 Famotidine [Pepcid] 40 mg PO DAILY 03/13/22 Gabapentin 300 mg PO BID 03/13/22 ursodioL [Ursodiol] 300 mg PO BID 03/13/22 Ciprofloxacin HCl [Cipro 250 MG Tablet*] 250 mg PO BID #20 tab 03/16/22 metroNIDAZOLE [Flagyl*] 500 mg PO TID #30 03/16/22 New Medications: Ciprofloxacin HCl [Cipro 250 MG Tablet*] 250 mg PO BID #20 tab metroNIDAZOLE [Flagyl*] 500 mg PO TID #30 Followup: Laureano Echeverria MD [Primary Care Provider] -
[2022-03-16 11:53] VITALS: BP 137/63; TEMP 97.7
[2022-03-19 01:04] LABS: Vitamin D 1,25-Dihydroxy Total 42 pg/mL (18-72); Vitamin D,1,25-OH2, D2 <8 pg/mL
== END 2022-03-16 12:45 | disposition home or self-care (01) | DRG 342 ==
LOC: EDSTATUS 10:10 → ER 10:10 → 4TH 12:12 → OBSVTOIN 03-14 12:29
PROVIDERS: ADMIT Internal Medicine; ATTEND Internal Medicine
PROC: 0DTJ4ZZ Resection of Appendix, Percutaneous Endoscopic Approach (ICD-10-PCS; principal; 2022-03-13 17:00)
DX: K35.30 Acute appendicitis with localized peritonitis, without perforation or gangrene (principal); E87.1 Hypo-osmolality and hyponatremia; E03.9 Hypothyroidism, unspecified; K21.9 Gastro-esophageal reflux disease without esophagitis; R41.0 Disorientation, unspecified; Z88.0 Allergy status to penicillin; Z88.8 Allergy status to other drugs, medicaments and biological substances; Z88.1 Allergy status to other antibiotic agents; Z90.49 Acquired absence of other specified parts of digestive tract; Z79.899 Other long term (current) drug therapy; Z79.890 Hormone replacement therapy; Z20.822 Contact with and (suspected) exposure to COVID-19
CPT/HCPCS: 36415; 71046; 74177; 80048; 80076; 81003; 82043; 82306; 82607; 82652; 83036; 83735; 83930; 83935; 84100; 84300; 84443; 85025; 85610; 85730; 87040; 87811; 88304; 93005; 94010; 97116; 97161; 99285; G0378; G0379; J0694; J1100; J2710; J3010; J7120; Q9967

== ENCOUNTER 2022-08-08 12:59 | Emergency (ER) | payer OTHER ==
--- OUTSIDE RECORDS SUMMARY | 2022-08-08 13:04 | XMS REPORT | Continuity of Care Document ---
:1935 Author Organization [facility] t Address [address] [place] [address] Care Team Providers Name Role Phone Laureano Echeverria MD Primary Care Physician Laureano Echeverria V Attending Clinician Unavailable SORIN ARAGON Attending Clinician Unavailable ROBERT DOMÍNGUEZ Attending Clinician Unavailable Physician, No Primary or Family Admitting Clinician Unavaila ROBERT Hernandez Admitting Clinician Unavailable Payers Payer Name Policy Type Policy Number Effective Date Expiration Date S ource MEDICARE A B [id number] 1999 00:00:00 Problems Condition Condition Condition Status [...] [facility] Drug Active Rash 2018-[address] [facility] Allergy 2-10 reaction( [facility] Other Medical 00 (See Center Comments) Face turns red Penicill Propensi Active Rash 2018-05 [facility] i ins ty to 2-10 st adverse 00:00: Hospita reaction 00 l s to drug Family History Family Member Diagnosis Comments Start Date Stop Date Source Natural brother Lung cancer [facility] Natural father Heart disease [facility] Natural mother Breast cancer [facility] Natural sister Breast cancer [facility] sister Stroke [facility] Social History Social Habit Start Date Stop Date Quantity Comments Source History of Cigarette Smoker [facility] tobacco use [facility] Alcohol intake 2019-08-05 2019-08-05 Ex-drinker [facility] 00:00:00 00:00:00 (finding) Hospital Tobacco use and 2019-05-04 2019-05-04 Smokeless tobacco [facility] exposure 00:00:00 00:00:00 non-user Hospital Cigarette 2019-05-04 2019-05-04 [facility] pack-years 00:00:00 00:00:00 Hospital Tobacco Comment 2019-05-04 2019-05-04 Smoked four years [facility] 00:00:00 00:00:00 in early twenties Hospita l Alcohol Comment 2019-05-04 2019-05-04 Occasional wine. 2 M [facility] 00:00:00 00:00:00 to 3 glasses a Hospital month. Sex Assigned At [birth year] PAMELA Erwin 00:00:00 [facility]:00 [facility] Smoking Status Start Date Stop Date Source Ex-smoker 2019-05-04 00:00:00 2019-05-04 00:00:00 [facility] Medications Ordered Filled Start Stop Current Ordering [...] tablet cholecalcif 2020-0 Yes Take by Met светлана romain, 2-[address] vitamin D3, 10:33: Hospit a (VITAMIN D3 37 l ORAL) Bifidobacte 2020-0 Yes Take by Met светлана rium 2-[address] infantis 10:33: Hospita (ALIGN 37 l ORAL) multivitami 2020-0 Yes 1{tbl} QD Take 1 [facility] with 2-[address] minerals 10:33: mouth Hospita tablet 37 daily. l magnesium 2020-0 Yes Methodi oxide 2-12 st (MAG-OX) 10:33: Hospita 400 mg 37 l (241.3 mg magnesium) tablet aspirin 2020-0 Yes 81mg QD Take 81 mg Meth antione (ECOTRIN) 2-[address] 81 MG 10:33: daily. Hospita enteric 37 l coated tablet cholecalcif 2020-0 Yes Take by Met hodi romain, 2-[address] vitamin D3, 10:33: Hospit a (VITAMIN D3 37 l ORAL) Bifidobacte 2020-0 Yes Take by Met hodi rium 2-[address] infantis 10:33: Hospita (ALIGN 37 l ORAL) multivitami 2020-0 Yes 1{tbl} QD Take 1 [facility] with 2-[address] minerals 10:33: mouth Hospita tablet 37 daily. l famotidine 2020-0 Yes [facility] (PEPCID) 40 1-16 st MG tablet 00:00: Hospita 00 l famotidine 2020-0 Yes [facility] (PEPCID) 40 1-16 st MG tablet 00:00: Hospita 00 l torsemide 2018-05 Yes [facility] (DEMADEX) 2-07 st 10 MG 00:00: Hospita tablet 00 l torsemide 2018-05 Yes [facility] (DEMADEX) 2-07 st 10 MG 00:00: Hospita tablet 00 l levothyroxi 2018-05 Yes 75ug QD Take 75 Met hodi ne 1-[address] (SYNTHROID) 00:00: mouth Hospi ta 75 mcg 00 every l tablet morning. levothyroxi 2018-05 Yes 75ug QD Take 75 Met hodi ne 1-[address] (SYNTHROID) 00:00: mouth Hospi ta 75 mcg 00 every l tablet morning. KLOR-CON 2018-05 Yes 10meq Take 10 Me thodi 10 mEq CR 1-[address] tablet 00:00: mouth. Hospita 00 l KLOR-CON 2018-05 Yes 10meq Take 10 Me thodi 10 mEq CR 1-[address] tablet 00:00: mouth. Hospita 00 l Immunizations Ordered Immunization Filled Immunization Date Status Commen ts Source Name Name check24 COVID-19 MRNA 2020-07-03 Completed [facility] VACCINATION 00:00:00 Hospital PFIZER COVID-19 MRNA 2020-07-03 Completed [facility] VACCINATION 00:00:00 Hospital PFIZER COVID-19 MRNA 2020-06-12 Completed [facility] VACCINATION 00:00:00 Hospital PFIZER COVID-19 MRNA 2020-06-12 Completed [facility] VACCINATION 00:00:00 Hospital FLUZONE QUAD 2019-02-17 Completed [facility] 00:00:00 Hospital FLUZONE QUAD 2019-02-17 Completed [facility] 00:00:00 Hospital Pneumococcal, 2017-04-25 Completed [facility] Unspecified 00:00:00 Hospital Pneumococcal, 2017-04-25 Completed [facility] Unspecified 00:00:00 Hospital Pneumococcal, 2016-04-25 Completed [facility] Unspecified 00:00:00 Hospital Pneumococcal, 2016-04-25 Completed [facility] Unspecified 00:00:00 Hospital Procedures This patient has no known procedures. Plan of Care Planned Activity Planned Date Details Comments Source Future Scheduled 2022-05-[address] [facility] Test 00:00:00 (12+) [code = Medical Center DEPRESSION SCREENING (12+)] Future Scheduled 2022-05-26 FALLS [address]ISK SCREENING [facility] Test 00:00:00 [code = FALLS RISK Medical C enter SCREENING] Future Scheduled 2022-05-08 SHINGLES VACCINES (1 Met [facility] Test 02:57:21 of 2) [code = SHINGLES VACCINES (1 of 2)] Future Scheduled 2022-05-08 65+ [facility] 02:57:21 VACCINE (1 - PCV) [code = 65+ PNEUMOCOCCAL VACCINE (1 - PCV)] Future Scheduled 2022-05-08 COVID-19 VACCINE (3 - [facility] Test 02:57:21 Booster for Pfizer series) [code = COVID-19 VACCINE (3 - Booster for Pfizer series)] Future Scheduled 2022-05-08 INFLUENZA VACCINE Method [facility] Hospital Test 02:57:21 [code = INFLUENZA VACCINE] Future Scheduled 2022-02-13 HEPATITIS B VACCINES Met [facility] Test 03:07:02 (1 of 3 - 3-dose series) [code = HEPATITIS B VACCINES (1 of 3 - 3-dose series)] Future Scheduled 2022-02-13 SHINGLES VACCINES (1 Met [facility] Test 03:07:02 of 2) [code = SHINGLES VACCINES (1 of 2)] Future Scheduled 2022-02-13 65+ [facility]OCCAL [facility] Test 03:07:02 VACCINE (1 - PCV) [code = 65+ PNEUMOCOCCAL VACCINE (1 - PCV)] Future Scheduled 2022-02-13 COVID-19 VACCINE (3 - [facility] Test 03:07:02 Booster for Pfizer series) [code = COVID-19 VACCINE (3 - Booster for Pfizer series)] Future Scheduled 2022-02-13 INFLUENZA VACCINE Method [facility] Hospital Test 03:07:02 [code = INFLUENZA VACCINE] Future Scheduled 2022-01-24 INFLUENZA VACCINE (#1) [facility] 00:00[facility]00 [code = INFLUENZA Medical Ce nter VACCINE (#1)] Future Scheduled 2000-12-[address] [facility] [facility] Test 00:00:00 WELLNESS (YEAR 2 or Medical Center FIRST YEAR if no IPPE) [code = MEDICARE ANNUAL WELLNESS (YEAR 2 or FIRST YEAR if no IPPE)] Future Scheduled 2000-01-21 PNEUMOCOCCAL 65+ YRS [facility] Test 00:00:00 (1 - PCV) [code = Medical Ce nter PNEUMOCOCCAL 65+ YRS (1 - PCV)] Future Scheduled 1985 SHINGLES VACCINES ([address] [facility] Test 00:00:00 of 2) [code = SHINGLES Medic al Center VACCINES (1 of 2)] Future Scheduled 1954 DTAP/TDAP/TD VACCINES [facility] Test 00:00:00 (1 - Tdap) [code = Medical C enter DTAP/TDAP/TD VACCINES (1 - Tdap)] Future Scheduled [address] [facility] Test 00:00:00 Counseling and Medical Cente r Screening (12+) [code = Tobacco Cessation Counseling and Screening (12+)] Future Scheduled 1935 COVID-19 VACCINE (#1) [facility] Test 00:00:00 [code = COVID-[address] VACCINE (#1)] Encounters Start End Encounter Admission Attending Care Care Encounter Source Date/Time Date/Time Type Type Clinicians Facility Department ID 2020-09-20 2020-09-20 Outpatient NELLA Boykin [id number] [facility] 12:00:00 12:00:00 Laureano 00 [facility] 2020-07-03 2020-07-03 Outpatient [facility] [id number] [place] 00:00:00 00:00:[address] 2020-06-12 2020-06-12 Outpatient [facility] [id number] [place] 00:00:00 00:00:[address] 2020-04-12 2020-04-12 Outpatient ELAINE ARAGON, SLEH [facility] [id number] [facility] 00:00:00 00:00:00 SORIN 2019-08-04 2019-08-04 Outpatient ROBERT DOMÍNGUEZ [facility] [id number] [place] 00:00:00 00:00:[address] 2019-06-28 2019-06-30 Inpatient ROBERT DOMÍNGUEZ [facility] [id number] [place] 00:00:00 00:00:[address] 2019-06-15 2019-06-15 Outpatient ROBERT DOMÍNGUEZ [facility] [id number] [place] 00:00:00 00:00:[address] 2019-06-15 2019-06-15 Outpatient ROBERT DOMÍNGUEZ [facility] [id number] [place] 00:00:00 00:00:[address] 2019-05-07 2019-05-07 Outpatient ROBERT DOMÍNGUEZ [facility] [id number] [place] 00:00:00 00:00:[address] 2019-05-04 2019-05-04 Outpatient ROBERT DOMÍNGUEZ [facility] [id number] [place] 00:00:00 00:00:[address] Results Test Description Test Time Test Comments Results Result [facility] e Comments CT, ABDOMEN 2020-04-12 Unlisted Reason 16:55:00 for Exam - Click Yes and [facility] Enter Reason [facility] - MEDICAL Below->No CENTERName: CELSO MADISON : 1935 Sex: [...] Su Verified Date/Time: 04/12/2020 16:55:23 Reading Location: [facility] C013X Ortho Consult Reading Room -CREATININE 2020-04-12 14:30:00 Test Item Value Reference Range Interpretation Comme nts POC-CREATININE (BEAKER) 0.6 mg/dL 0.6-1.3 : [facility] AT [facility] 7200 (test code = 1859) [facility] [address]: Research Rn Spec /Manager Vehicle ID = [id number] for TYLER CRUZ POC-EGFR (BEAKER) (test 95 mL/min/1.73M2 code = 1860)
[2022-08-08] MEDS ORDERED: TRAMADOL HCL 50 MG TAB ONE (13:31)
--- NOTE | 2022-08-08 14:12 | RAD REPORT ---
EXAM DESCRIPTION: RAD - Humerus Left - 08/08/2022 2:02 pm CLINICAL HISTORY: PAIN COMPARISON: Forearm Left dated 08/08/2022 TECHNIQUE: Left Humerus, 2 views. FINDINGS: No fracture is identified. There is no dislocation or periosteal reaction noted. No forei gn body or other soft tissue abnormality. IMPRESSION: Negative left humerus examination.
--- NOTE | 2022-08-08 14:15 | RAD REPORT ---
EXAM DESCRIPTION: RAD - Forearm Left - 08/08/2022 2:02 pm CLINICAL HISTORY: PAIN COMPARISON: Humerus Left dated 08/08/2022 TECHNIQUE: Left forearm, 2 views. FINDINGS: Mildly displaced fracture of the distal radial metaphysis, best appreciated on lateral vie w, potentially extending along the articular surface. There is no dislocation or periosteal reaction noted. No foreign body. Soft tissue swelling about the wrist. IMPRESSION: Mildly displaced distal radial metaphyseal fracture, potentially with intra-articular ex tension.
--- NOTE | 2022-08-08 15:22 | EDPHYS ---
Physician Documentation [facility] Name: Parvin Manzo Age: 87 yrs Sex: Female : 1935 Arrival Date: 08/08/2022 Time: 13:06 Bed 5 Private MD: ED Physician Faustino Celaya HPI: 08/08 15:20 This 87 yrs old Female presents to ER via EMS with complaints of wrist pain. kb 15:20 The patient or guardian reports decreased range of motion, injury, pain, swelling, kb tenderness. The complaints affect the left wrist diffusely. Context: The problem was sustained at home, resulted from a fall. Onset: The symptoms/episode began/occurred just prior to arrival. Modifying factors: The symptoms are alleviated by nothing, the symptoms are aggravated by movement. Associated signs and symptoms: The patient has no apparent associated signs or symptoms. The patient has not experienced similar symptoms in the past. The patient has not recently seen a physician. Patient is a 87-year-old female who reports that she was cleaning out a closet when a chair fell over and caused her to fall injuring left wrist.. Historical: - Allergies: 13:09 PENICILLINS (Hives); ko1 - PMHx: 13:09 GERD; Hypercholesterolemia; Hypothyroidism; ko1 - Immunization history:: Adult Immunizations unknown. - Social history:: Smoking status: Patient denies any tobacco usage or history of. ROS: 15:19 Constitutional: Negative for fever, chills, and weight loss. kb 15:19 MS/extremity: Positive for injury or acute deformity, decreased range of motion, pain, tenderness, of the left wrist. 15:19 All other systems are negative. Exam: 15:20 Constitutional: This is a well developed, well nourished patient who is awake, alert, kb and in no acute distress. Head/Face: Normocephalic, atraumatic. ENT: Moist Mucous membranes Cardiovascular: Regular rate and rhythm with a normal S1 and S2. No gallops, murmurs, or rubs. No pulse deficits. Respiratory: Respirations even and unlabored. No increased work of breathing. Talking in full sentences Abdomen/GI: Soft, non-tender. No distention Skin: Warm, dry with normal turgor. Normal color. Neuro: Awake and alert, GCS 15, oriented to person, place, time, and situation. Moves all extremities. Normal gait. Psych: Awake, alert, with orientation to person, place and time. Behavior, mood, and affect are within normal limits. 15:20 Musculoskeletal/extremity: Extremities: grossly normal except: noted in the left arm: decreased ROM, pain, swelling, tenderness, ROM: limited active range of motion due to pain, in the left wrist, Circulation is intact in all extremities. Sensation intact. Vital Signs: 13:36 BP 120 / 53; Pulse 72; Resp 18; Temp 97.5; Pulse Ox 99% on R/A; Weight 68.04 kg; ph MDM: 13:06 Patient medically screened. kb 15:16 Differential diagnosis: dislocation, closed fracture, contusion, sprain. Data reviewed: dwayne vital signs, nurses notes. Independent interpretation of the following test(s) in the Emergency Department X-Ray: My interpretation is X-ray reviewed by me, distal radius fracture.. Historians other than the Patient: EMS: [facility]. Counseling: I had a detailed discussion with the patient and/or guardian regarding: the historical points, exam findings, and any diagnostic results supporting the discharge/admit diagnosis, radiology results, the need for outpatient follow up, a orthopedic surgeon, to return to the emergency department if symptoms worsen or persist or if there are any questions or concerns that arise at home. ED course: Patient is a 87-year-old female who presents for pain to left upper extremity, worse in the wrist, after fall. On exam patient has decreased range of motion to left wrist, tenderness to left upper extremity from mid humerus to wrist. Nontoxic in appearance. No neurodeficits. Patient denies LOC. X-ray revealed distal radius fracture. Patient educated on findings and need for splint, sling and follow-up with orthopedics. Verbal understanding received.. 08/08 13:07 Order name: Humerus Left XRAY; Complete Time: 14:13 kb 08/08 13:07 Order name: Forearm Left XRAY; Complete Time: 14:17 kb 08/08 14:18 Order name: Sling; Complete Time: 15:12 kb 08/08 14:18 Order name: Sugar Tong Forearm Splint; Complete Time: 15:12 kb Administered Medications: 13:39 Drug: traMADol PO 50 mg Route: PO; ph Disposition Summary: 08/08/22 15:22 Discharge Ordered Location: Home Condition: Stable kb Diagnosis - Displaced fracture left distal radius kb Followup: kb - With: Emergency Department - When: As needed - Reason: Worsening of condition Followup: kb - With: Private Physician - When: 2 - 3 days - Reason: Recheck today's complaints, Continuance of care, Re-evaluation by your physician Forms: - Medication Reconciliation Form kb - Thank You Letter kb - Antibiotic Education kb - Prescription Opioid Use kb Signatures: Dispatcher [employer] EDClaudia Herman, EVON-C BEAD FILLER-Nelia Gage, RN RN Gisselle Yusuf RN RN ko1
--- NOTE | 2022-08-08 15:22 | ER ---
Nurse's Notes [facility] Name: Parvin Manzo Age: 87 yrs Sex: Female : 1935 Arrival Date: 08/08/2022 Time: 13:06 Bed 5 Private MD: Diagnosis: Displaced fracture left distal radius Presentation: 08/08 13:06 Chief complaint: EMS states: patient was moving furniture around and lost her footing, ko1 something hit her wrist, not sure what it was. No LOC. Coronavirus screen: At this time, the client does not indicate any symptoms associated with coronavirus-19. Ebola Screen: No symptoms or risks identified at this time. Initial Sepsis Screen: Does the patient meet any 2 criteria? No. Patient's initial sepsis screen is negative. Does the patient have a suspected source of infection? No. Patient's initial sepsis screen is negative. Risk Assessment: Do you want to hurt yourself or someone else? Patient reports no desire to harm self or others. Onset of symptoms was August 08, 2022. 13:06 Method Of Arrival: EMS: [facility] ko1 13:06 Acuity: ORI 3 ko1 Triage Assessment: 13:09 General: Appears in no apparent distress. uncomfortable, Behavior is calm, cooperative, ko1 appropriate for age. Pain: Complains of pain in left wrist. Historical: - Allergies: 13:09 PENICILLINS (Hives); ko1 - PMHx: 13:09 GERD; Hypercholesterolemia; Hypothyroidism; ko1 - Immunization history:: Adult Immunizations unknown. - Social history:: Smoking status: Patient denies any tobacco usage or history of. Screenin:37 [facility] ED Fall Risk Assessment (Adult) History of falling in the last 3 months, ph including since admission Yes- single mechanical fall (1 pt) Confusion or Disorientation No (0 pts) Intoxicated or Sedated No (0 pts) Impaired Gait No (0 pts) Mobility Assist Device Used No (0 pt) Altered Elimination No (0 pt) Score/Fall Risk Level 0 - 2 = Low Risk Oriented to surroundings, Maintained a safe environment, Hourly rounding (assess needs \T\ fall precautionary measures) done. Abuse screen: Denies threats or abuse. Denies injuries from another. Nutritional screening: No deficits noted. Tuberculosis screening: No symptoms or risk factors identified. Assessment: 13:37 General: Appears in no apparent distress. comfortable, well groomed, Behavior is calm, ph cooperative, appropriate for age. Pain: Complains of pain in left wrist. Neuro: Level of Consciousness is awake, alert, obeys commands, Oriented to person, place, time, situation, Denies dizziness. Cardiovascular: Capillary refill < 3 seconds in bilateral fingers Patient's skin is warm and dry. Respiratory: Airway is patent Respiratory effort is even, unlabored. Derm: Skin is healthy with good turgor, Skin is pink, warm \T\ dry. Musculoskeletal: Swelling present in left wrist Reports pain in left wrist. Vital Signs: 13:36 BP 120 / 53; Pulse 72; Resp 18; Temp 97.5; Pulse Ox 99% on R/A; Weight 68.04 kg; ph ED Course: 13:06 Patient arrived in ED. ko1 13:06 Claudia Kaur FNP-C is [facility]. kb 13:06 Faustino Celaya MD is Attending Physician. kb 13:08 Nelia Walker, RN is Primary Nurse. ph 13:09 Triage completed. ko1 13:09 Arm band placed on right wrist. Patient notified of wait time. ko1 13:37 Patient has correct armband on for positive identification. Bed in low position. Call ph light in reach. Side rails up X 1. Pulse ox on. NIBP on. Door closed. Noise minimized. Warm blanket given. Ice pack to injury. 14:03 Humerus Left XRAY In Process Unspecified. EDMS 14:03 Forearm Left XRAY In Process Unspecified. EDMS Administered Medications: 13:39 Drug: traMADol PO 50 mg Route: PO; ph Medication: 13:39 VIS not applicable for this client. ph Outcome: 15:22 Discharge ordered by . kb Signatures: Dispatcher [employer] EDMS Claudia Kaur FNP-C FNP-Nelia Gage RN RN Gisselle Erwin RN RN ko1
[2022-08-08 17:49] VITALS: BP 120/53; TEMP 97.5; O2SAT 99
== END 2022-08-08 16:03 | disposition home or self-care (01) ==
LOC: ER 12:59
PROC: 2W3DX1Z Immobilization of Left Lower Arm using Splint (ICD-10-PCS; principal; 2022-08-08)
DX: S52.502A Unspecified fracture of the lower end of left radius, initial encounter for closed fracture (principal); Z88.0 Allergy status to penicillin
CPT/HCPCS: 99284

== ENCOUNTER 2023-05-03 06:50 | Emergency (ER) | payer OTHER ==
--- NOTE | 2023-05-03 08:50 | RAD REPORT ---
EXAM DESCRIPTION: RADChest Single View05/03/2023 8:21 am CLINICAL HISTORY: Congestion;Cough COMPARISON: Chest Pa And Lat (2 Views) dated 03/13/2022; Chest Single View dated 01/16/2019; Chest Si ngle View dated 01/13/2019; Chest Pa And Lat (2 Views) dated 09/21/2017 TECHNIQUE: Portable AP view of the chest. FINDINGS: Hyperinflation, suggestive of COPD. The lungs are clear, apart from stable streaky right b asilar opacities which may represent a mixture of fibrotic and postsurgical changes. No pneumothorax or effusion. The cardiomediastinal contours are unremarkable. Lower cervical plating hardware in pl perri. IMPRESSION: No acute cardiopulmonary process. Stable findings as above
[2023-05-03] MEDS ORDERED: dexAMETHasone 4 MG TAB ONE (08:58)
--- NOTE | 2023-05-03 10:42 | EDPHYS ---
Physician Documentation [facility] Name: Parvin Manzo Age: 88 yrs Sex: Female : 1935 Arrival Date: 05/03/2023 Time: 06:50 Bed 2 Private MD: ED Physician Zaire Foley HPI: 05/03 07:37 This 88 yrs old Female presents to ER via EMS with complaints of Sore Throat, Neck ci Swelling. 07:37 Patient is an 88-year-old female with PMH of hyperlipidemia, hypothyroidism, GERD who ci presents to the ED with sore throat, URI symptoms. Patient reports she has a cough, congestion and what she thought was a cold for the past 3 days but last night she developed really bad sore throat, pain with swallowing and could not go to sleep. This morning she felt like her throat was closing up which prompted ED visit. She denies any drooling, wheezing, chest pain, shortness of breath, palpitations.. Historical: - Allergies: 06:55 PENICILLINS (Hives); rv - PMHx: 06:55 GERD; Hypercholesterolemia; Hypothyroidism; rv - PSHx: 06:55 back surgery; Cholecystectomy; lung surgery; neck surgery; Right hip surgery; rv - Immunization history:: Adult Immunizations up to date. - Social history:: Smoking status: unknown. - Hospitalizations: : No recent hospitalization is reported. - History obtained from: daughter. ROS: 07:37 ENT: Positive for sinus congestion, sore throat, Negative for ear pain, difficulty ci handling secretions, 07:37 Neck: Positive for Negative for pain with movement, stiffness, swelling, bony tenderness, 07:37 Respiratory: Positive for cough, with no reported sputum, Negative for orthopnea, shortness of breath, wheezing, Exam: 07:37 Constitutional: This is a well developed, well nourished patient who is awake, alert, ci and in no acute distress. Head/Face: Normocephalic, atraumatic. Eyes: Pupils equal round and reactive to light, extra-ocular motions intact. Lids and lashes normal. Conjunctiva and sclera are non-icteric and not injected. Cornea within normal limits. Periorbital areas with no swelling, redness, or edema. Chest/axilla: Normal chest wall appearance and motion. Nontender with no deformity. No lesions are appreciated. Cardiovascular: Regular rate and rhythm with a normal S1 and S2. No gallops, murmurs, or rubs. Normal PMI, no JVD. No pulse deficits. Respiratory: Lungs have equal breath sounds bilaterally, clear to auscultation and percussion. No rales, rhonchi or wheezes noted. No increased work of breathing, no retractions or nasal flaring. Abdomen/GI: Soft, non-tender, with normal bowel sounds. No distension or tympany. No guarding or rebound. No evidence of tenderness throughout. Skin: Warm, dry with normal turgor. Normal color with no rashes, no lesions, and no evidence of cellulitis. MS/ Extremity: Pulses equal, no cyanosis. Neurovascular intact. Full, normal range of motion. Neuro: Awake and alert, GCS 15, oriented to person, place, time, and situation. Cranial nerves II-XII grossly intact. Motor strength 5/5 in all extremities. Sensory grossly intact. Cerebellar exam normal. Normal gait. Psych: Awake, alert, with orientation to person, place and time. Behavior, mood, and affect are within normal limits. 07:37 ENT: External ear(s): are unremarkable, TM's: are normal, Posterior pharynx: Airway: patent, Tonsils: Uvula: midline, non-edematous, erythema, swelling, is not appreciated, erythema, exudate, is not appreciated, pooling of secretions, is not appreciated, Voice: is normal, 07:37 Neck: External neck: Trachea: is midline with no obvious abnormalities, ROM/movement: is normal, is supple, without pain, no range of motions limitations, no meningismus, no nuchal rigidity, Vital Signs: 06:54 BP 143 / 58; Pulse 72; Resp 17; Temp 98; Pulse Ox 98% ; Weight 59 kg; Height 5 ft. 2 rv in. ; 07:19 BP 129 / 71; Pulse 65; Resp 16; Pulse Ox 97% ; ko1 08:16 BP 117 / 75; Pulse 64; Resp 19; Pulse Ox 97% on R/A; Pain 0/10; tm6 09:09 BP 120 / 59; Pulse 62; Resp 18; Pulse Ox 98% on R/A; ld1 10:12 BP 115 / 62; Pulse 59; Resp 17; Pulse Ox 100% ; tm6 06:54 Body Mass Index 23.79 (59.00 kg, 157.48 cm) rv 08:16 Pain Scale: Adult tm6 MDM: 06:53 Patient medically screened. kelly 07:37 Differential diagnosis: bronchitis, influenza, laryngitis, pharyngitis, uvulitis, viral ci syndrome. Data reviewed: vital signs, nurses notes. Historians other than the Patient: Daughter/Son: Daughter. Care significantly affected by the following chronic conditions: Hyperlipidemia, hypothyroidism. ED course: Patient presents with URI symptoms, sore throat. She is nontoxic-appearing, vital signs stable. She has no meningeal signs. Posterior oropharynx is erythematous, no edema, no exudates, no [employer]. Uvula is midline. Will obtain viral swabs, chest x-ray.. 07:46 External Records Reviewed: Chart review shows ED visit in July for left wrist pain.. ci 10:39 ED course: Viral swabs negative, CXR unremarkable. Patient was given Decadron. She is ci stable for discharge with close PCP follow-up. 05/03 07:36 Order name: Rapid Strep ci 05/03 07:36 Order name: COVID-19 SARS RT PCR; Complete Time: 09:20 ci 05/03 07:36 Order name: Flu; Complete Time: 10:38 ci 05/03 10:38 Interpretation: Within normal limits: FLUA <p>FLU A ----- NEGATIVE (could be below ci detectable limits, suggest culture)</p>; FLUB <p>FLU B ----- NEGATIVE (could be below detectable levels, suggest culture)</p>. 05/03 07:36 Order name: RSV; Complete Time: 10:38 ci 05/03 10:38 Interpretation: Within normal limits: RSV <p>RSV ---- NEGATIVE (may be below detectable ci limits, recommend culture)</p>. 05/03 08:25 Order name: Throat Culture EDMS 05/03 07:36 Order name: XRAY Chest (1 view); Complete Time: 09:20 ci 05/03 10:38 Interpretation: No acute disease: Per Radiologist's finding(s): IMPRESSION: No acute ci cardiopulmonary process. Stable findings as above. 05/03 07:36 Order name: Cardiac monitoring; Complete Time: 07:38 ci 05/03 07:36 Order name: O2 Per Protocol; Complete Time: 07:38 ci 05/03 07:36 Order name: O2 Sat Monitoring; Complete Time: 07:38 ci Administered Medications: 08:50 Not Given (med not availablee): viscous lidocaineliquid (4 %) 5 ml Mucous Membrane once tm6 08:50 Drug: Dexamethasone PO 6 mg PO once Route: PO; tm6 10:41 Follow up: Response: No adverse reaction tm6 Disposition Summary: 05/03/23 10:41 Discharge Ordered Notes: Location: Home ci Condition: Stable ci Diagnosis - Acute pharyngitis due to other specified organism ci Followup: ci - With: Private Physician - When: 1 - 2 days - Reason: Recheck today's complaints, Re-evaluation by your physician Discharge Instructions: - Discharge Summary Sheet ci - Pharyngitis, [id number] ci - Sore Throat, [id number] ci Forms: - Medication Reconciliation Form ci - Thank You Letter ci - Patient Portal Instructions ci - Leadership Thank You Letter ci Signatures: Dispatcher [employer] EDMS Rj Finnegan MD MD cha Vicente, Ronaldo RN RN Zaire Foley Tawney RN RN tm6 Corrections: (The following items were deleted from the chart) 07:41 07:37 Patient is an 88-year-old female with PMH of hyperlipidemia, hypothyroidism, GERD ci who presents to the ED with sore throat, URI symptoms. Patient reports she has a cough, congestion and what she thought was a cold for the past 3 days but last night she developed really bad sore throat and could not go to sleep. This morning she felt like her throat was closing up which prompted ED visit. She denies any wheezing, chest pain, shortness of breath, palpitations.. ci
--- NOTE | 2023-05-03 10:42 | ER ---
Nurse's Notes [facility] Name: Parvin Manzo Age: 88 yrs Sex: Female : 1935 Arrival Date: 05/03/2023 Time: 06:50 Bed 2 Private MD: Diagnosis: Acute pharyngitis due to other specified organism Presentation: 05/03 06:54 Chief complaint: EMS states: pt is complaining of throat pain and swelling since last rv night. Coronavirus screen: At this time, the client does not indicate any symptoms associated with coronavirus-19. Ebola Screen: No symptoms or risks identified at this time. Initial Sepsis Screen: Does the patient meet any 2 criteria? No. Patient's initial sepsis screen is negative. Does the patient have a suspected source of infection? No. Patient's initial sepsis screen is negative. Risk Assessment: Do you want to hurt yourself or someone else? Patient reports no desire to harm self or others. Onset of symptoms was May 03, 2023. 06:54 Method Of Arrival: EMS: [facility] rv 06:54 Acuity: ORI 3 rv Triage Assessment: 06:55 General: Appears comfortable, Behavior is calm, cooperative. Pain: Complains of pain in rv throat. Neuro: Level of Consciousness is awake, alert, obeys commands, Oriented to person, place, time. Cardiovascular: Capillary refill < 3 seconds Patient's skin is warm and dry. Respiratory: Airway is patent Respiratory effort is even, unlabored. GI: No signs and/or symptoms were reported involving the gastrointestinal system. : No signs and/or symptoms were reported regarding the genitourinary system. Derm: Skin is intact. Historical: - Allergies: 06:55 PENICILLINS (Hives); rv - PMHx: 06:55 GERD; Hypercholesterolemia; Hypothyroidism; rv - PSHx: 06:55 back surgery; Cholecystectomy; lung surgery; neck surgery; Right hip surgery; rv - Immunization history:: Adult Immunizations up to date. - Social history:: Smoking status: unknown. - Hospitalizations: : No recent hospitalization is reported. - History obtained from: daughter. Screenin:56 [facility] ED Fall Risk Assessment (Adult) History of falling in the last 3 months, rv including since admission No falls in past 3 months (0 pts) Score/Fall Risk Level 3 or more points = High Risk Oriented to surroundings, Maintained a safe environment, Educated pt \T\ family on fall prevention, incl call for assistance when getting out of bed, Assessed \T\ reinforced patient's understanding of fall precautions. Abuse screen: Denies threats or abuse. Denies injuries from another. Nutritional screening: No deficits noted. Tuberculosis screening: No symptoms or risk factors identified. Assessment: 08:16 General: Appears in no apparent distress. Behavior is calm, cooperative. Pain: tm6 Complains of pain in neck. Neuro: Level of Consciousness is awake, alert, obeys commands, Oriented to person, place, time, situation. Cardiovascular: Capillary refill < 3 seconds Patient's skin is warm and dry. Respiratory: Airway is patent Respiratory effort is even, unlabored, Respiratory pattern is regular, symmetrical. GI: Abdomen is flat, non-distended. : No signs and/or symptoms were reported regarding the genitourinary system. EENT: Reports pain when swallowing. Derm: No signs and/or symptoms reported regarding the dermatologic system. Musculoskeletal: No signs and/or symptoms reported regarding the musculoskeletal system. 10:12 Reassessment: Patient appears in no apparent distress at this time. No changes from tm6 previously documented assessment. Patient and/or family updated on plan of care and expected duration. Pain level reassessed. Patient is alert, oriented x 3, equal unlabored respirations, skin warm/dry/pink. Vital Signs: 06:54 BP 143 / 58; Pulse 72; Resp 17; Temp 98; Pulse Ox 98% ; Weight 59 kg; Height 5 ft. 2 rv in. ; 07:19 BP 129 / 71; Pulse 65; Resp 16; Pulse Ox 97% ; ko1 08:16 BP 117 / 75; Pulse 64; Resp 19; Pulse Ox 97% on R/A; Pain 0/10; tm6 09:09 BP 120 / 59; Pulse 62; Resp 18; Pulse Ox 98% on R/A; ld1 10:12 BP 115 / 62; Pulse 59; Resp 17; Pulse Ox 100% ; tm6 06:54 Body Mass Index 23.79 (59.00 kg, 157.48 cm) rv 08:16 Pain Scale: Adult tm6 ED Course: 06:52 Patient arrived in ED. pf1 06:53 Rj Finnegan MD is Attending Physician. kelly 06:55 Triage completed. rv 06:55 Arm band placed on left wrist. rv 06:56 Patient has correct armband on for positive identification. Client placed on continuous rv cardiac and pulse oximetry monitoring. NIBP monitoring applied. 06:56 No provider procedures requiring assistance completed. rv 07:19 Gisselle Erwin, RN is Primary Nurse. ko1 07:33 Attending Physician role handed off by Rj Finnegan MD ci 07:33 Zaire Foley is Attending Physician. ci 08:16 Provided Education on: swabs. tm6 08:22 XRAY Chest (1 view) In Process Unspecified. EDMS 10:48 Patient did not have IV access during this emergency room visit. ko1 Administered Medications: 08:50 Not Given (med not availablee): viscous lidocaineliquid (4 %) 5 ml Mucous Membrane once tm6 08:50 Drug: Dexamethasone PO 6 mg PO once Route: PO; tm6 10:41 Follow up: Response: No adverse reaction tm6 Medication: 06:56 VIS not applicable for this client. rv Outcome: 10:41 Discharge ordered by . ci 10:48 Discharged to home via wheelchair, with family, ko1 10:48 Condition: stable 10:48 Discharge instructions given to patient, family, Instructed on discharge instructions, follow up and referral plans. Demonstrated understanding of instructions, follow-up care, 10:55 Patient left the ED. ko1 Signatures: Dispatcher [employer] EDMO Rj Finnegan MD MD cha Vicente, Ronaldo RN RN rv Aisha Aguilar RN RN ld1 Gisselle Erwin, RN RN ko1 Jessa Gonzalez RN RN pf1 Zaire Foley Kristine Trevizo RN RN tm6
[2023-05-03 11:01] VITALS: TEMP 98
[2023-05-03 11:06] VITALS: BP 115/62; O2SAT 100
== END 2023-05-03 10:55 | disposition home or self-care (01) ==
LOC: ER 06:50
DX: J02.9 Acute pharyngitis, unspecified (principal); E03.9 Hypothyroidism, unspecified; E78.00 Pure hypercholesterolemia, unspecified; K21.9 Gastro-esophageal reflux disease without esophagitis; Z11.52 Encounter for screening for COVID-19; Z88.0 Allergy status to penicillin
CPT/HCPCS: 87070; 87081; 87635; 87807; 87804 ×2; 71045; 99284; J8540

== ENCOUNTER 2023-09-04 11:36 | Emergency (ER) | payer OTHER ==
--- NOTE | 2023-09-04 12:46 | RAD REPORT ---
EXAM DESCRIPTION: RAD - Hip Right 2 View - 09/04/2023 12:24 pm CLINICAL HISTORY: PAIN COMPARISON: Hip Right 2 View dated 02/02/2019; Pelvis dated 09/04/2023 FINDINGS/IMPRESSION: No acute fracture. No dislocation. Threaded screws in the right femoral neck. T he hardware is intact.
--- NOTE | 2023-09-04 12:47 | RAD REPORT ---
EXAM DESCRIPTION: RAD - Pelvis - 09/04/2023 12:24 pm CLINICAL HISTORY: PAIN COMPARISON: Hip In Or dated 01/13/2019 FINDINGS/IMPRESSION: No pelvic fracture identified. Both hips appear located on these views. Right f emoral neck threaded screws.
--- NOTE | 2023-09-04 12:57 | RAD REPORT ---
EXAM DESCRIPTION: CT - Spine Lumbar Wo Con - 09/04/2023 12:38 pm CLINICAL HISTORY: LOWER BACK PAIN COMPARISON: Abdomen Pelvis W Contrast dated 03/13/2022; Chest For Pe Angio dated 04/02/2020; Abdome n Pelvis W Contrast dated 04/07/2020 TECHNIQUE: Axial noncontrast CT imaging of the lumbar spine was performed with coronal and sagittal re-formatted images. All CT scans are performed using dose optimization technique as appropriate and may include automated exposure control or mA/KV adjustment according to patient size. FINDINGS: Status post L2-L3 posterior danielle and pedicle screw fusion. The most superior screw on the l eft terminates just left lateral to the disc above the superior endplate. Prior L4-5 fusion. Severe d isc height loss at L3-4 and moderate disc height loss at L1-2. Varying degrees of neural foraminal na rrowing noted. Grade 1 anterolisthesis of L2 on L3. This is chronic. There is probably a moderate ruby tral spinal stenosis at L1-2 and L3-4. Suspected burst fracture present at L1 involving the superior endplate with lucency extending to the posterior wall of the vertebral body . There is approximately 20% maximal loss of height. No signific ant bony retropulsion. Cholecystectomy. Extrahepatic biliary duct dilatation likely related to the postcholecystectomy state . IMPRESSION: Abnormality at L1 suspicious for a burst fracture with less than 20% loss of height and no bony retropulsion. MRI could confirm. The main differential would be a Schmorl's node with osteope forrest that simulates the presence of a fracture. L2-3 danielle and pedicle screw fusion. L4-5 is partially fused which may be developmental or postsurgical . Multilevel degenerate disc disease. Suspect at least moderate central spinal stenosis at L1-2 and L3- 4.
--- NOTE | 2023-09-04 13:51 | ER ---
Nurse's Notes [facility] Name: Parvin Manzo Age: 88 yrs Sex: Female : 1935 Arrival Date: 09/04/2023 Time: 11:36 Bed DX5 Private MD: Laureano Echeverria V Diagnosis: Pain in right hip;Low back pain Presentation: 09/03 11:58 Chief complaint: Patient states: R hip pain for a couple days. No trauma. Sent for ll1 further evaluation by Dr. Echeverria. Coronavirus screen: Client denies travel out of the [place] in the last 14 days. At this time, the client does not indicate any symptoms associated with coronavirus-19. Ebola Screen: Patient denies travel to an Ebola-affected area in the 21 days before illness onset. Initial Sepsis Screen: Does the patient meet any 2 criteria? No. Patient's initial sepsis screen is negative. Does the patient have a suspected source of infection? No. Patient's initial sepsis screen is negative. Risk Assessment: Do you want to hurt yourself or someone else? Patient reports no desire to harm self or others. Onset of symptoms was September 01, 2023. 11:58 Method Of Arrival: Wheelchair ll1 11:58 Acuity: ORI 4 ll1 Triage Assessment: 11:59 General: Appears uncomfortable, Behavior is calm, cooperative, appropriate for age. ll1 Pain: Complains of pain in R hip Quality of pain is described as aching. Musculoskeletal: Circulation, motion, and sensation intact. Capillary refill < 3 seconds, Reports pain in R hip. Historical: - Allergies: 11:44 PENICILLINS (Hives); ll1 - Home Meds: 12:02 amitriptyline 10 mg Oral tab nightly [Active]; levothyroxine oral [Active]; potassium ll1 chloride 10 mEq Oral cpER 1 cap Every other day [Active]; torsemide 10 mg Oral tab 1 tab Every other day [Active]; ursodiol 300 mg Oral cap 2 times per day [Active]; 12:04 gabapentin 300 mg oral capsule [Active]; ll1 - PMHx: 11:44 GERD; Hypercholesterolemia; Hypothyroidism; ll1 - PSHx: 11:44 back surgery; Cholecystectomy; lung surgery; neck surgery; Right hip surgery; ll1 - Immunization history:: Adult Immunizations up to date. - Social history:: Smoking status: Patient denies any tobacco usage or history of. - Family history:: not pertinent. - Hospitalizations: : No recent hospitalization is reported. Vital Signs: 11:58 BP 151 / 70; Pulse 62; Resp 16; Temp 97.5; Pulse Ox 97% ; Pain 8/10; ll1 11:58 Pain Scale: Adult ll1 ED Course: 11:38 Patient arrived in ED. mr 11:38 Laureano Echeverria MD is Private Physician. mr 11:44 Arm band placed on. ll1 11:57 Murali Martinez MD is Attending Physician. rn 11:59 Triage completed. ll1 12:26 XRAY Hip RIGHT 2 view In Process Unspecified. EDMS 12:26 XRAY Pelvis In Process Unspecified. EDMS 12:40 CT Lumbar Spine Wo Con In Process Unspecified. EDMS 14:23 Madhuri Manzo, RN is Primary Nurse. iw Administered Medications: No medications were administered Outcome: 13:50 Discharge ordered by . rn 14:23 Patient left the ED. iw Signatures: Dispatcher [employer] EDMS Tiffanie Piña, Reg Reg mr Madhuri Manzo, RN RN iw Murali Martinez MD MD rn Lewis, Lynsay, RN RN ll1
--- NOTE | 2023-09-04 13:51 | EDPHYS ---
Physician Documentation [facility] Name: Parvin Manzo Age: 88 yrs Sex: Female : 1935 Arrival Date: 09/04/2023 Time: 11:36 Bed DX5 Private MD: Laureano Echeverria V ED Physician Murali Martinez HPI: 09/03 13:36 This 88 yrs old Female presents to ER via Wheelchair with complaints of Hip Pain. rn 13:36 The patient or guardian reports pain. There is no obvious deformity, The patient is rn able to ambulate with assistance. The patient is able to bear partial body weight. There is no radiation of the patient's discomfort. The complaints affect the Lower back and right hip. Onset: The symptoms/episode began/occurred 3 day(s) ago. Modifying factors: The symptoms are alleviated by nothing, the symptoms are aggravated by any movement. Associated signs and symptoms: Pertinent positives: None. Pertinent negatives: abdominal pain, altered mental status, chest pain, dysuria, incontinence, nausea, vomiting, weakness. Severity of symptoms: At their worst the symptoms were moderate, in the emergency department the symptoms have improved. The patient has experienced similar episodes in the past. Patient reports worsening right hip pain and back pain for the last 2 or 3 days. No trauma or fall. Has had back surgery as well as right hip surgery in the past. Denies fever. No swelling. No history of DVT or PE. Patient reports back pain that radiates into the hip and at times the hip that radiates down to the posterior right thigh. No skin changes. Historical: - Allergies: 11:44 PENICILLINS (Hives); ll1 - Home Meds: 12:02 amitriptyline 10 mg Oral tab nightly [Active]; levothyroxine oral [Active]; potassium ll1 chloride 10 mEq Oral cpER 1 cap Every other day [Active]; torsemide 10 mg Oral tab 1 tab Every other day [Active]; ursodiol 300 mg Oral cap 2 times per day [Active]; 12:04 gabapentin 300 mg oral capsule [Active]; ll1 - PMHx: 11:44 GERD; Hypercholesterolemia; Hypothyroidism; ll1 - PSHx: 11:44 back surgery; Cholecystectomy; lung surgery; neck surgery; Right hip surgery; ll1 - Immunization history:: Adult Immunizations up to date. - Social history:: Smoking status: Patient denies any tobacco usage or history of. - Family history:: not pertinent. - Hospitalizations: : No recent hospitalization is reported. ROS: 13:36 Constitutional: Negative for fever, chills, and weight loss, Neck: Negative for injury, rn pain, and swelling, Cardiovascular: Negative for chest pain, palpitations, and edema, Respiratory: Negative for shortness of breath, cough, wheezing, and pleuritic chest pain, Abdomen/GI: Negative for abdominal pain, nausea, vomiting, diarrhea, and constipation, MS/Extremity: Positive for right hip pain Skin: Negative for injury, rash, and discoloration, Neuro: Negative for headache, weakness, numbness, tingling, and seizure, Exam: 13:36 Constitutional: This is a well developed, well nourished patient who is awake, alert, rn and in no acute distress. Cardiovascular: Regular rate and rhythm. No pulse deficits. Respiratory: No increased work of breathing, no retractions or nasal flaring. Abdomen/GI: Soft, non-tender Back: No spinal tenderness. No costovertebral tenderness. MS/ Extremity: Pulses equal, no cyanosis. No pain with passive range of motion of right hip Neuro: Awake and alert, GCS 15 Vital Signs: 11:58 BP 151 / 70; Pulse 62; Resp 16; Temp 97.5; Pulse Ox 97% ; Pain 8/10; ll1 11:58 Pain Scale: Adult ll1 MDM: 11:57 Patient medically screened. rn 13:48 Differential diagnosis: bursitis, arthritis, strain. Data reviewed: vital signs, nurses rn notes, radiologic studies, CT scan, plain films, and as a result, I will discharge patient. Counseling: I had a detailed discussion with the patient and/or guardian regarding the historical points, exam findings, and any diagnostic results supporting the discharge/admit diagnosis, radiology results, the need for outpatient follow up, to return to the emergency department if symptoms worsen or persist or if there are any questions or concerns that arise at home. Special discussion: I discussed with the patient/guardian in detail that at this point there is no indication for admission to the hospital. It is understood, however, that if the symptoms persist or worsen the patient needs to return immediately for re-evaluation. Based on the history and exam findings, there is no indication for further emergent testing or inpatient evaluation. I discussed with the patient/guardian the need to see the orthopedic surgeon for further evaluation of the symptoms. I discussed with the patient/guardian the need to see the metal painter for further evaluation of the symptoms. I discussed with the patient/guardian the need to see the primary care provider for further evaluation of the symptoms. ED course: No acute findings and x-ray or CT. Patient needs to follow-up with pain management and orthopedics. No indication for emergent admission at this time. Told her to take her gabapentin twice daily and will send her home with some pain medication as needed.. 09/03 12:06 Order name: XRAY Hip RIGHT 2 view; Complete Time: 13:32 rn 09/03 12:06 Order name: XRAY Pelvis; Complete Time: 13:32 rn 09/03 12:06 Order name: CT Lumbar Spine Wo Con; Complete Time: 13:32 rn Administered Medications: No medications were administered Disposition Summary: 09/04/23 13:50 Discharge Ordered Notes: Location: Home rn Problem: new rn Symptoms: have improved rn Condition: Stable rn Diagnosis - Pain in right hip rn - Low back pain rn Followup: rn - With: Private Physician - When: As needed - Reason: Recheck today's complaints, Re-evaluation by your physician Discharge Instructions: - Discharge Summary Sheet rn - Arthritis rn - Acute Back Pain, Adult rn - Hip Pain rn Forms: - Medication Reconciliation Form rn - Thank You Letter rn - Antibiotic awake overnight counselor - Prescription Opioid Use rn - Patient Portal Instructions rn - Leadership Thank You Letter rn Prescriptions: - Tramadol 50 mg Oral Tablet - take 1 tablet ORAL route every 8 hours as needed; 12 tablet; Refills: 0, rn Product Selection Permitted - Cyclobenzaprine 5 mg Oral tablet - take 1 tablet ORAL route every 8-12 hours As needed; 15 tablet; Refills: 0, rn Product Selection Permitted Signatures: Dispatcher [employer] Murali Martinez MD MD rn Lewis, Lynsay, RN RN 1
[2023-09-04 14:37] VITALS: BP 151/70; TEMP 97.5; O2SAT 97
== END 2023-09-04 14:23 | disposition home or self-care (01) ==
LOC: ER 11:36
DX: M25.551 Pain in right hip (principal); M54.50 Low back pain, unspecified; Z88.0 Allergy status to penicillin
CPT/HCPCS: 72131; 72170; 99281

== ENCOUNTER 2023-10-05 06:07 | Emergency (ER) | payer OTHER ==
[2023-10-05] MEDS ORDERED: PHENAZOPYRIDINE 100MG TAB PO ONE (06:35)
[2023-10-05 07:24] LABS: Specific Gravity 1.013 (1.005-1.030); Sqamous Epithelial None Seen /HPF (None Seen); Urine Bacteria None Seen /HPF (<20); Urine Bilirubin NEGATIVE (Negative); Urine Blood 2+ (Negative); Urine Clarity Extremely Turbid (Clear); Urine Color Light-Orange (Yellow); Urine Culture Reflex Order REFLEXED; Urine Glucose NEGATIVE (Negative); Urine Ketones NEGATIVE (Negative); Urine Micro Reflex YN NO BILL MICROSCOPIC; Urine Nitrite NEGATIVE (Negative); Urine Protein 2+ (Negative); Urine RBC >50 /HPF (None Seen); Urine Urobilinogen Normal (Normal); Urine WBC >50 /HPF (<5); Urine WBC Clump Many /HPF (None Seen); Urine pH 6.5 (5.0-7.0)
[2023-10-05] MEDS ORDERED: CEFDINIR 300 MG CAP PO ONE (07:26)
--- NOTE | 2023-10-05 07:35 | ER ---
Nurse's Notes [facility] Name: Parvin aMnzo Age: 88 yrs Sex: Female : 1935 Arrival Date: 10/05/2023 Time: 06:07 Bed 16 Private MD: Laureano Echeverria V Diagnosis: UTI/ Urinary tract infection, site not specified Presentation: 10/04 06:23 Coronavirus screen: At this time, the client does not indicate any symptoms associated rv with coronavirus-19. Ebola Screen: No symptoms or risks identified at this time. Initial Sepsis Screen: Does the patient meet any 2 criteria? No. Patient's initial sepsis screen is negative. Does the patient have a suspected source of infection? No. Patient's initial sepsis screen is negative. Risk Assessment: Do you want to hurt yourself or someone else? Patient reports no desire to harm self or others. Onset of symptoms was October 05, 2023. :23 Method Of Arrival: Ambulatory rv :23 Acuity: ORI 3 rv 06:26 Chief complaint: Patient states: I HAVE NOT BEEN FEELING WELL FOR A WEEK OR MORE, I rv THOUGHT I WAS GETTING BETTER, I DRINK CRANBERRY JUICE, THIS MORNING, THE PAIN IS JUST SEVER WHEN I PEE. DENIES OTHER SYMPTOM AT THIS TIME. Triage Assessment: 06:22 General: Appears uncomfortable, Behavior is calm, cooperative. Pain: Denies pain. rv Neuro: Level of Consciousness is awake, alert, obeys commands, Oriented to person, place, time, situation. Cardiovascular: Capillary refill < 3 seconds Patient's skin is warm and dry. Respiratory: Airway is patent Respiratory effort is even, unlabored, Breath sounds are clear bilaterally. GI: No signs and/or symptoms were reported involving the gastrointestinal system. : Reports burning with urination, urgency, urinary frequency. Historical: - Allergies: 06: PENICILLINS (Hives); rv - PMHx: : GERD; Hypercholesterolemia; Hypothyroidism; rv - PSHx: 06:22 back surgery; Cholecystectomy; lung surgery; neck surgery; Right hip surgery; rv - Immunization history:: Adult Immunizations up to date. - Infectious Disease History:: Denies. - Social history:: Smoking status: Patient denies any tobacco usage or history of. - Family history:: not pertinent. Screenin: [facility] Fall Risk Assessment (Adult) History of falling in the last 3 months, rv including since admission No falls in past 3 months (0 pts) Score/Fall Risk Level 0 - 2 = Low Risk Oriented to surroundings, Maintained a safe environment, Educated pt \T\ family on fall prevention, incl call for assistance when getting out of bed, Assessed \T\ reinforced patient's understanding of fall precautions. Abuse screen: Denies threats or abuse. Denies injuries from another. Nutritional screening: No deficits noted. Tuberculosis screening: No symptoms or risk factors identified. Assessment: 06:20 General: Appears in no apparent distress. comfortable, Behavior is calm, cooperative. rs5 Pain: Complains of pain in pelvis Pain currently is 3 out of 10 on a pain scale. Quality of pain is described as burning, Is intermittent, Aggravated by urinating. 06:20 Neuro: Level of Consciousness is awake, alert, obeys commands, Oriented to person, rs5 place, time, situation. Cardiovascular: Patient's skin is warm and dry. Rhythm is regular. Respiratory: Airway is patent Respiratory effort is even, unlabored, Respiratory pattern is regular, symmetrical. GI: No signs and/or symptoms were reported involving the gastrointestinal system. : Reports burning with urination. EENT: No signs and/or symptoms were reported regarding the EENT system. Derm: Skin is pink, warm \T\ dry. Musculoskeletal: Range of motion: intact in all extremities. 07:26 Reassessment: Patient and/or family updated on plan of care and expected duration. Pain rs5 level reassessed. Patient is alert, oriented x 3, equal unlabored respirations, skin warm/dry/pink. Patient denies pain at this time. Patient states feeling better. 07:47 Reassessment: No changes from previously documented assessment. rs5 Vital Signs: 06:27 BP 165 / 75; Pulse 83; Resp 18; Temp 98; Pulse Ox 97% ; rv 07:47 BP 162 / 78; Pulse 70; Resp 18; Temp 98(O); Pulse Ox 99% on R/A; rs5 ED Course: 06:14 Patient arrived in ED. gm2 06:14 Laureano Echeverria MD is Private Physician. gm2 06:18 Krisnha Villalobos RN is Primary Nurse. rv 06:22 Arm band placed on right wrist. rv 06:23 Triage completed. rv 06:23 Stevie Wong MD is Attending Physician. rt 06:23 Patient has correct armband on for positive identification. Client placed on continuous rv cardiac and pulse oximetry monitoring. NIBP monitoring applied. 06:23 No provider procedures requiring assistance completed. rv 06:46 UAM Sent. rv 06:46 Urine collected: clean catch specimen, cloudy, SENT TO LAB. rv 06:59 Attending Physician role handed off by Stevie Wong MD ec2 06:59 Jeffery Bourgeois MD is Attending Physician. ec2 07:34 Laureano Echeverria MD is Referral Physician. ec2 07:49 Patient did not have IV access during this emergency room visit. rs5 Administered Medications: 06:46 Drug: Phenazopyridine PO 100 mg PO once Route: PO; rv 07:48 Follow up: Response: No adverse reaction rs5 07:14 Drug: Cefdinir PO 300 mg PO once Route: PO; rs5 07:48 Follow up: Response: No adverse reaction rs5 07:21 Not Given (not available in pharmacy or MD mile notifiedd): [id number] mg PO oncers5 Medication: 06:23 VIS not applicable for this client. rv Outcome: 07:35 Discharge ordered by MD. ec2 07:48 Discharged to home ambulatory, with family, rs5 07:48 Condition: stable 07:48 Discharge instructions given to patient, family, Instructed on discharge instructions, follow up and referral plans. medication usage, Demonstrated understanding of instructions, follow-up care, medications, Prescriptions given X 2, 07:49 Patient left the ED. rs5 Signatures: Krishna Villalobos RN RN rv Stevie Wong MD MD rt Andrea Capps RN RN rs5 Jeffery Bourgeois MD MD 2 Shanell Carr [facility]
--- NOTE | 2023-10-05 07:35 | EDPHYS ---
Physician Documentation [facility] Name: Parvin Manzo Age: 88 yrs Sex: Female : 1935 Arrival Date: 10/05/2023 Time: 06:07 Bed 16 Private MD: Laureano Echeverria V ED Physician Jeffery Bourgeois HPI: 10/04 07:02 This 88 yrs old Female presents to ER via Ambulatory with complaints of Pain With rt Urination. 07:02 Patient presents to the ED with about 1 week of dysuria. She reports of pain with rt urination. Patient states that she feels well otherwise, denies abdominal pain, hematuria, flank pain, fever, chills. Denies other acute complaints, symptoms are moderate in severity, no other aggravating or elevating factors.. Historical: - Allergies: 06:22 PENICILLINS (Hives); rv - PMHx: 06:22 GERD; Hypercholesterolemia; Hypothyroidism; rv - PSHx: 06:22 back surgery; Cholecystectomy; lung surgery; neck surgery; Right hip surgery; rv - Immunization history:: Adult Immunizations up to date. - Infectious Disease History:: Denies. - Social history:: Smoking status: Patient denies any tobacco usage or history of. - Family history:: not pertinent. ROS: 07:02 Constitutional: Negative for fever, chills, and weight loss, Cardiovascular: Negative rt for chest pain, palpitations, and edema, Respiratory: Negative for shortness of breath, cough, wheezing, and pleuritic chest pain, Abdomen/GI: Negative for abdominal pain, nausea, vomiting, diarrhea, and constipation, Skin: Negative for injury, rash, and discoloration, Neuro: Negative for headache, weakness, numbness, tingling, and seizure, 07:02 : Positive for burning with urination, Negative for hematuria, Exam: 07:02 Constitutional: This is a well developed, well nourished patient who is awake, alert, rt and in no acute distress. Head/Face: Normocephalic, atraumatic. Chest/axilla: Normal chest wall appearance and motion. Nontender with no deformity. No lesions are appreciated. Cardiovascular: Regular rate and rhythm with a normal S1 and S2. No gallops, murmurs, or rubs. Normal PMI, no JVD. No pulse deficits. Respiratory: Lungs have equal breath sounds bilaterally, clear to auscultation and percussion. No rales, rhonchi or wheezes noted. No increased work of breathing, no retractions or nasal flaring. Abdomen/GI: Soft, non-tender, with normal bowel sounds. No distension or tympany. No guarding or rebound. No evidence of tenderness throughout. Skin: Warm, dry with normal turgor. Normal color with no rashes, no lesions, and no evidence of cellulitis. MS/ Extremity: Pulses equal, no cyanosis. Neurovascular intact. Full, normal range of motion. Neuro: Awake and alert, GCS 15, oriented to person, place, time, and situation. Cranial nerves II-XII grossly intact. Motor strength 5/5 in all extremities. Sensory grossly intact. Cerebellar exam normal. Normal gait. Vital Signs: 06:27 BP 165 / 75; Pulse 83; Resp 18; Temp 98; Pulse Ox 97% ; rv 07:47 BP 162 / 78; Pulse 70; Resp 18; Temp 98(O); Pulse Ox 99% on R/A; rs5 MDM: 06:24 Patient medically screened. rt 07:03 Data reviewed: vital signs. ED course: Patient signed out to. Physician, in brief ec2 patient arrives today for evaluation of dysuria, patient given Pyridium as well as antibiotic p.o., plan to follow-up urine study.. 07:34 ED course: Urine infectious appearing, will discharge with antibiotics, Pyridium as ec2 needed. Return precautions given.. 10/04 06:36 Order name: UA; Complete Time: 07:34 rt 05 07:36 Order name: Urine Culture EDMS Administered Medications: 06:46 Drug: Phenazopyridine PO 100 mg PO once Route: PO; rv 07:48 Follow up: Response: No adverse reaction rs5 07:14 Drug: Cefdinir PO 300 mg PO once Route: PO; rs5 07:48 Follow up: Response: No adverse reaction rs5 07:21 Not Given (not available in pharmacy or pixies, notifiedd): [id number] mg PO oncers5 Disposition Summary: 10/05/23 07:35 Discharge Ordered Notes: Location: Home ec2 Condition: Stable ec2 Diagnosis - UTI/ Urinary tract infection, site not specified ec2 Followup: ec2 - With: Laureano Echeverria MD - When: - Reason: Recheck today's complaints Discharge Instructions: - Discharge Summary Sheet ec2 - Urinary Tract Infection, Adult ec2 - Urinary Tract Infection, Adult, [id number] ec2 Forms: - Medication Reconciliation Form ec2 - Antibiotic Education ec2 - Prescription Opioid Use ec2 - Patient Portal Instructions ec2 - Leadership Thank You Letter ec2 Prescriptions: - Pyridium 200 mg Oral Tablet - take 1 tablet ORAL route every 8 hours for 3 days; 9 tablet; Refills: 0, ec2 Product Selection Permitted - cefpodoxime 100 mg Oral tablet - take 1 tablet ORAL route every 12 hours for 7 days take with food; 14 tablet; ec2 Refills: 0, Product Selection Permitted Signatures: Dispatcher [employer] Krishna Marion, RN RN rv Stevie Wong MD MD rt Andrea Capps RN RN rs5 Jeffery Bourgeois MD MD ec2
[2023-10-05 08:10] VITALS: BP 162/78; TEMP 98; O2SAT 99
== END 2023-10-05 07:49 | disposition home or self-care (01) ==
LOC: ER 06:07
DX: N39.0 Urinary tract infection, site not specified (principal); Z88.0 Allergy status to penicillin
CPT/HCPCS: 81001; 87077; 87086; 87088; 87186; 99284

== ENCOUNTER 2024-01-27 11:54 | Emergency (ER) | payer OTHER ==
--- NOTE | 2024-01-27 12:25 | RAD REPORT ---
EXAM DESCRIPTION: CT - [id number] - 01/27/2024 12:10 pm CLINICAL HISTORY: fall, head injury COMPARISON: No comparisons TECHNIQUE: Axial thin cut noncontrast CT images of the head were obtained. Axial thin cut noncontrast CT images of the cervical spine were obtained. Multiplanar reformatted images were generated and reviewed. All CT scans are performed using dose optimization technique as appropriate and may include automated exposure control or mA/KV adjustment according to patient size. FINDINGS: CT HEAD WITHOUT CONTRAST: No acute hemorrhage, hydrocephalus or extra-axial collection is identified. Patchy periventricular an d deep white matter hypodensities, nonspecific, but suggestive of chronic small vessel ischemic floyd es. No areas of brain edema or midline shift. The paranasal sinuses and mastoids are clear.The calvarium is intact. Small right frontal scalp hemat marty. CT CERVICAL SPINE WITHOUT CONTRAST: No fracture or subluxation. Sequelae of anterior plating spanning C4-C7, with at least partial fusion across the endplates throughout this segment. No prevertebral soft tissues swelling is identified. IMPRESSION: Small right frontal scalp hematoma. No other acute traumatic intracranial or cervical sp ine findings. Chronic findings as above.
--- NOTE | 2024-01-27 13:33 | EDPHYS ---
Physician Documentation [facility] Name: Parvin Manzo Age: 89 yrs Sex: Female : 1935 Arrival Date: 01/27/2024 Time: 11:54 Bed 16 Private MD: ED Physician Murali Martinez HPI: 01/26 13:28 This 89 yrs old Female presents to ER via EMS with complaints of Fall Injury. rn 13:28 Details of fall: The patient fell from an upright position, while walking. Onset: The rn symptoms/episode began/occurred just prior to arrival. Associated injuries: The patient sustained injury to the head. Severity of symptoms: At their worst the symptoms were mild, in the emergency department the symptoms are unchanged. The patient has not experienced similar symptoms in the past. Patient reports got up to get something, had a walker by her but did not feel she needed it, lost her balance and fell forward, striking head on a marble surface table. No LOC. No blood thinners. Small wound to top of forehead. Remembers all events. . Historical: - Allergies: 13:40 PENICILLINS (Hives); me1 - PMHx: 13:40 GERD; Hypothyroidism; Hypercholesterolemia; me1 - PSHx: 13:40 back surgery; Cholecystectomy; lung surgery; neck surgery; Right hip surgery; me1 - Immunization history: Last tetanus immunization: unknown. - Infectious Disease History:: Denies. - Family history:: not pertinent. - Social history:: Smoking status: Patient denies any tobacco usage or history of. - Hospitalizations: : No recent hospitalization is reported. ROS: 13:28 Constitutional: Negative for fever, chills, and weight loss, Neck: Negative for injury, rn pain, and swelling, Cardiovascular: Negative for chest pain, palpitations, and edema, Respiratory: Negative for shortness of breath, cough, wheezing, and pleuritic chest pain, Abdomen/GI: Negative for abdominal pain, nausea, vomiting, diarrhea, and constipation, MS/Extremity: Negative for injury and deformity, Skin: Negative for injury, rash, and discoloration, Neuro: Negative for weakness, numbness, tingling, and seizure, Exam: 13:28 Constitutional: This is a well developed, well nourished patient who is awake, alert, rn and in no acute distress. Head/Face: Small abrasion and hematoma top of forehead along hairline. No active bleeding. No laceration. No depression. Eyes: Pupils equal round and reactive to light, extra-ocular motions intact. Neck: In c-collar, no midline cervical tenderness MS/ Extremity: Pulses equal, no cyanosis. Neurovascular intact. Full, normal range of motion. Equal circumference. Neuro: Awake and alert, GCS 15 Vital Signs: 11:53 BP 155 / 74; Pulse 70; Resp 18; Temp 98.6(O); Pulse Ox 97% ; db 13:00 BP 141 / 69; Pulse 60; Resp 16; Pulse Ox 99% on R/A; me1 13:43 BP 127 / 69; Pulse 58; Resp 16; Temp 98.2; Pulse Ox 97% ; me1 Robinson Coma Score: 11:53 Eye Response: spontaneous(4). Motor Response: obeys commands(6). Verbal Response: db oriented(5). Total: 15. Trauma Score (Adult): 11:53 Eye Response: spontaneous(1); Verbal Response: oriented(1); Motor Response: obeys db commands(2); Systolic BP: > 89 mm Hg(4); Respiratory Rate: 10 to 29 per min(4); Robinson Score: 15; Trauma Score: 12 MDM: 11:57 Patient medically screened. rn 13:31 Differential diagnosis: abrasion, closed head injury, contusion, fracture. Data rn reviewed: vital signs, nurses notes, radiologic studies, CT scan, and as a result, I will discharge patient. Counseling: I had a detailed discussion with the patient and/or guardian regarding the historical points, exam findings, and any diagnostic results supporting the discharge/admit diagnosis, radiology results, the need for outpatient follow up, to return to the emergency department if symptoms worsen or persist or if there are any questions or concerns that arise at home. Special discussion: Based on the patient's history, exam and DX evaluation, there is no indication for emergent intervention or inpatient [place]. It is understood by the patient/guardian that if the SXs persist or worsen they need to return immediately for re-evaluation. I discussed with the patient/guardian in detail that at this point there is no indication for admission to the hospital. It is understood, however, that if the symptoms persist or worsen the patient needs to return immediately for re-evaluation. 01/26 11:57 Order name: CT Head C Spine; Complete Time: 13:10 rn 01/26 11:58 Order name: Wound Care; Complete Time: 12:28 rn 01/26 11:58 Order name: Wound dressing; Complete Time: 12:28 rn Administered Medications: No medications were administered Disposition Summary: 01/27/24 13:32 Discharge Ordered Notes: Location: Home rn Problem: new rn Symptoms: have improved rn Condition: Stable rn Diagnosis - Unspecified injury of head, initial encounter rn - Abrasion of scalp rn Followup: rn - With: Private Physician - When: As needed - Reason: Recheck today's complaints, Re-evaluation by your physician Discharge Instructions: - Discharge Summary Sheet rn - Head Injury, Adult rn - Hematoma rn - Fall Prevention in the Home, Adult rn Forms: - Medication Reconciliation Form rn - Antibiotic rn behavioral health - Prescription Opioid Use rn - Patient Portal Instructions rn - Leadership Thank You Letter rn Signatures: Dispatcher [employer] Murail Martinez MD MD rn Benton, Danielle RN RN Maci Dasilva, RN RN me1
--- NOTE | 2024-01-27 13:33 | ER ---
Nurse's Notes [facility] Name: Parvin Manzo Age: 89 yrs Sex: Female : 1935 Arrival Date: 01/27/2024 Time: 11:54 Bed 16 Private MD: Diagnosis: Unspecified injury of head, initial encounter;Abrasion of scalp Presentation: 01/26 11:53 Chief complaint: EMS states: LOST BALANCE AND FELL HIT HEAD ON MARBLE TABLE. BRUISE AND db BLEEDING TO FOREHEAD. NO BLOOD THINNERS. NO LOC. Care prior to arrival: None. Mechanism of Injury: No Mechanism of Injury. Trauma event details: Injury occurred in the [facility]. 11:53 Acuity: ORI 3 db 11:53 Method Of Arrival: EMS: [facility] db 11:53 Care prior to arrival: Cervical collar in place. Medication(s) given: zofran 4 mg, db FENTANYL 50 MCG IV initiated. 20 GA, in the right antecubital area. 12:00 Coronavirus screen: Vaccine status: Patient reports receiving the 2nd dose of the covid me1 vaccine. Ebola Screen: No symptoms or risks identified at this time. Initial Sepsis Screen: Does the patient meet any 2 criteria? No. Patient's initial sepsis screen is negative. Does the patient have a suspected source of infection? No. Patient's initial sepsis screen is negative. Risk Assessment: Do you want to hurt yourself or someone else?. 12:00 Onset of symptoms was January 27, 2024. pr1 Trauma Activation: Stat Physician: ED Physician; Name: ; Notified At: ; Arrived At: Physician: General Surgeon; Name: ; Notified At: ; Arrived At: Physician: Radiology; Name: ; Notified At: ; Arrived At: Physician: Respiratory; Name: ; Notified At: ; Arrived At: Physician: Lab; Name: ; Notified At: ; Arrived At: Historical: - Allergies: 13:40 PENICILLINS (Hives); me1 - PMHx: 13:40 GERD; Hypothyroidism; Hypercholesterolemia; me1 - PSHx: 13:40 back surgery; Cholecystectomy; lung surgery; neck surgery; Right hip surgery; me1 - Immunization history: Last tetanus immunization: unknown. - Infectious Disease History:: Denies. - Family history:: not pertinent. - Social history:: Smoking status: Patient denies any tobacco usage or history of. - Hospitalizations: : No recent hospitalization is reported. Screenin:53 Abuse screen: Denies threats or abuse. Denies injuries from another. Tuberculosis db screening: No symptoms or risk factors identified. 13:39 [facility] ED Fall Risk Assessment (Adult) History of falling in the last 3 months, me1 including since admission Yes- single mechanical fall (1 pt) Confusion or Disorientation No (0 pts) Intoxicated or Sedated No (0 pts) Impaired Gait Yes (1 pt) Mobility Assist Device Used Yes (1 pt) Altered Elimination No (0 pt) Score/Fall Risk Level 3 or more points = High Risk Maintained a safe environment, Hourly rounding (assess needs \T\ fall precautionary measures) done, Used ambulatory aids as needed (educated on \T\ assisted with). Nutritional screening: No deficits noted. Primary Survey: 11:53 NO uncontrolled hemorrhage observed. A: The client is awake and alert. The airway is db patent. The client is alert. Airway: patent. Breathing/Chest: Spontaneous respiratory effort, equal unlabored respirations, breath sounds clear bilaterally, regular pattern, symmetrical chest rise and fall. Respiratory effort: spontaneous, unlabored, Breath sounds: clear, bilaterally. Respiratory pattern: regular. Circulation: No external hemorrhage present. Regular and strong central pulse, skin warm/dry/normal color. Disability Client is alert. Exposure/Environment: There is no evidence of uncontrolled external bleeding. Reassessment Alertness and Airway: Awake and alert. The airway is patent. Breathing: Spontaneous respiratory effort, equal unlabored respirations, breath sounds clear bilaterally, regular pattern with symmetrical chest rise and fall. Respiratory effort Spontaneous Unlabored Circulation: No external hemorrhage noted. Regular and strong central pulse, skin warm/dry/normal color. Disability: Alert. Assessment: 11:53 Reassessment: Patient appears in no apparent distress at this time. Patient and/or db family updated on plan of care and expected duration. Pain level reassessed. Patient is alert, oriented x 3, equal unlabored respirations, skin warm/dry/pink. General: Appears in no apparent distress. comfortable, Behavior is calm, cooperative. Pain: Complains of pain in face. Neuro: Level of Consciousness is awake, alert, obeys commands, Oriented to person, place, time, situation. Cardiovascular: No deficits noted. Respiratory: Airway is patent Respiratory effort is even, unlabored, Respiratory pattern is regular, symmetrical. Derm: Wound noted face Bruising that is dark purple. 12:00 General: Appears in no apparent distress. comfortable, well groomed, well developed, me1 well nourished, Behavior is calm, cooperative, appropriate for age, Reports lost her balance and fell, hitting her head on marble table. Pain: Complains of pain in face Pain does not radiate. Pain currently is 3 out of 10 on a pain scale. Quality of pain is described as throbbing, Pain began suddenly, Is continuous. Neuro: Level of Consciousness is awake, alert, obeys commands, Oriented to person, place, time, situation, Appropriate for age. Cardiovascular: Patient's skin is warm and dry. Respiratory: Airway is patent Respiratory effort is even, unlabored, Respiratory pattern is regular, symmetrical. GI: No signs and/or symptoms were reported involving the gastrointestinal system. : No signs and/or symptoms were reported regarding the genitourinary system. EENT: No signs and/or symptoms were reported regarding the EENT system. Derm: Wound noted face Wound is abrasion. Musculoskeletal: No signs and/or symptoms reported regarding the musculoskeletal system. Injury Description: trip and fall hitting head on marble table. Vital Signs: 11:53 BP 155 / 74; Pulse 70; Resp 18; Temp 98.6(O); Pulse Ox 97% ; db 13:00 BP 141 / 69; Pulse 60; Resp 16; Pulse Ox 99% on R/A; me1 13:43 BP 127 / 69; Pulse 58; Resp 16; Temp 98.2; Pulse Ox 97% ; me1 Robinson Coma Score: 11:53 Eye Response: spontaneous(4). Motor Response: obeys commands(6). Verbal Response: db oriented(5). Total: 15. Trauma Score (Adult): 11:53 Eye Response: spontaneous(1); Verbal Response: oriented(1); Motor Response: obeys db commands(2); Systolic BP: > 89 mm Hg(4); Respiratory Rate: 10 to 29 per min(4); Robinson Score: 15; Trauma Score: 12 ED Course: 11:53 Patient has correct armband on for positive identification. Bed in low position. Call db light in reach. Side rails up X 1. 11:53 Patient maintains SpO2 saturation greater than 95% on room air. db 11:57 Patient arrived in ED. rn 11:57 Murali Martinez MD is Attending Physician. rn 12:00 Triage completed. db 12:00 Provided Education on: POC. Verbalized understanding. . Client placed on continuous me1 cardiac and pulse oximetry monitoring. NIBP monitoring applied. Pulse ox on. NIBP on. 12:00 Maintain EMS IV. Dressing intact. Good blood return noted. Site clean \T\ dry. Gauge \T\ me 1 site: 20g RAC. Flushed with 10 mL NS. 12:04 No provider procedures requiring assistance completed. db 12:[address] via stretcher. db 12:10 Maci Nowak, RN is Primary Nurse. me1 12:12 CT Head C Spine In Process Unspecified. EDMS 13:40 Arm band placed on Patient placed in an exam room. me1 13:54 IV discontinued, intact, bleeding controlled, No redness/swelling at site. Pressure me1 dressing applied. Administered Medications: No medications were administered Medication: 13:41 VIS not applicable for this client. me1 Outcome: 13:32 Discharge ordered by . rn 13:43 Patient's length of stay was not longer than 2 hours. me1 13:54 Discharged to home via wheelchair, with family, me1 13:54 Condition: stable 13:54 Discharge instructions given to patient, family, Instructed on discharge instructions, follow up and referral plans. Demonstrated understanding of instructions, follow-up care, 13:55 Patient left the ED. me1 Signatures: Dispatcher [employer] EDPA Murali Martinez MD MD rn Benton, Danielle, RN RN db Eddleman, Michelle, RN RN me1
[2024-01-27 14:05] VITALS: BP 127/69; TEMP 98.2; O2SAT 97
== END 2024-01-27 13:55 | disposition home or self-care (01) ==
LOC: ER 11:54
DX: S00.01XA Abrasion of scalp, initial encounter (principal); W18.30XA Fall on same level, unspecified, initial encounter
CPT/HCPCS: 70450; 72125; 99284; G0390

== ENCOUNTER 2024-09-15 09:44 | Day surgery (SDC) | payer OTHER ==
[2024-09-14 11:02] LABS: Absolute Basophils 0.1 K/uL (0-0.5); Absolute Eosinophils 0.2 K/uL (0-0.5); Absolute Lymphocytes (CBC) 1.5 K/uL (0.7-4.9); Absolute Monocytes 0.6 K/uL (0.1-1.3); Absolute Neutrophil 4.7 K/uL (1.8-8.0); Hematocrit 38.3 % (36.0-45.0); Hemoglobin 13.3 g/dL (12.0-15.0); Lymphocytes % 21.4 % (15.3-44.8); MCH 31.9 pg (27.0-35.0); MCHC 34.7 g/dL (32.0-36.0); MCV 91.8 fL (80-100); Monocytes % 8.9 % (3.3-12.3); Neutrophils % 65.7 % (41.7-73.7); Platelets 257 thou/uL (152-406); RBC Red Blood Cell Count 4.17 M/uL (3.86-4.86)
[2024-09-14 11:16] LABS: Anion Gap 7.9 mEq/L (5.0-15.0); Potassium 3.9 mEq/L (3.5-5.1)
[2024-09-15] MEDS: Ringers Lactate 1,000 ML IV ONE (10:00)
[2024-09-15] MEDS ORDERED: FENTANYL CITR 100 MCG/2 ML ONE (11:55)
[2024-09-15] MEDS ORDERED: LIDOCAINE 2% MPF 5 ML VIAL ONE (11:55)
[2024-09-15] MEDS ORDERED: ONDANSETRON 4 MG/2 ML VIAL ONE (11:55)
[2024-09-15] MEDS ORDERED: propofoL 200 MG/20 ML VIAL IV ONE (11:55)
[2024-09-15] MEDS: CEFAZOLIN SODIUM 1 GM/VIAL ONE (12:34)
--- NOTE | 2024-09-15 12:38 | EKG ---
Test Date: 2024-09-14 Test Time: 10:30:43 Truck Despatcher: MEASUREMENT RESULTS: Intervals: Rate: 63 NH: 154 QRSD: 76 QT: 406 QTc: 415 [place]: P: 68 NH: 154 QRS: 121 T: 81 INTERPRETIVE STATEMENTS: Normal sinus rhythm Low voltage QRS Left posterior fascicular block Cannot rule out Anterior infarct, age undetermined Abnormal ECG Compared to ECG 03/13/2022 13:18:42 Left posterior fascicular block now present Right-axis deviation no longer present Myocardial infarct finding still present Electronically Signed On 09-15-24 12:36:28 CDT by Chavez Hagan
[2024-09-15] MEDS ORDERED: NS 0.9% VIAL 10 ML ONE (12:49)
[2024-09-15] MEDS: LIDOCAINE HCL/EPINEPHRINE 20 ML MDV ONE (13:15)
--- NOTE | 2024-09-15 13:28 | P.OP ---
Preoperative diagnosis: RIGHT Shoulder Blade Skin Cancer Postoperative diagnosis: RIGHT Shoulder Blade Skin Cancer Primary procedure: Wide Excision of RIGHT Shoulder Blade Skin Cancer Anesthesia: GETA + Local Estimated blood loss: <1cc Specimen: skin ellipse Findings: ~ 1cm x 0.7cm biopsy proven skin cancer Complications: None Transferred to: Recovery Room Condition: Good
--- NOTE | 2024-09-15 14:53 | OP ---
Date of Procedure: 09/15/2024 Surgeon: Chito Potts MD, Preoperative Diagnosis: Right shoulder blade biopsy-proven skin cancer. Postoperative Diagnosis: Right shoulder blade biopsy-proven skin cancer. Procedure Performed: Wide local excision of right shoulder blade skin cancer. Anesthesia: General endotracheal plus local with 1% lidocaine. Estimated Blood Loss: 1 cc. Specimens: Skin ellipse was the specimen. Findings: Approximately 1 cm x 0.7 cm biopsy-proven skin cancer. Complication: None. Disposition: The patient was transferred to recovery room in good condition. Procedure In Detail: After informed consent was obtained, patient was brought to the operating room, prepped and draped in the usual sterile fashion, after adequate anesthesia was achieved. I demarcat ed an area at the right posterior scapula skin with the 1 cm margin circumferentially around, a biops y-proven skin cancer with positive margins, previously biopsied by other physician. I then made an e lliptical incision circumferentially around this area after appropriately anesthetizing the skin with 1% lidocaine without epinephrine. Marking sutures placed, short superior, long right lateral. This was then sent off for pathologic examination after being taken down all the way to the adipose plane . At this point, the area was copiously irrigated. Hemostasis was achieved with electrocautery. Th e wound was then closed using interrupted 3-0 nylon sutures and sterile dressing was placed over top. The patient tolerated the procedure well without incident or complication and transferred to PACU i n good condition. All counts were correct at the end of the case. BELLA/SALEEM Voice ID: [id number] Report ID: [id number]
[2024-09-15 15:24] VITALS: BP 129/63; TEMP 97.1; O2SAT 96
== END 2024-09-15 15:29 | disposition home or self-care (01) ==
LOC: OR 09:44
PROVIDERS: ATTEND Surgery
PROC: 0HBBXZZ Excision of Right Upper Arm Skin, External Approach (ICD-10-PCS; principal; 2024-09-15 11:45)
DX: C44.92 Squamous cell carcinoma of skin, unspecified (principal)
CPT/HCPCS: 93005; 85025; 80048; 36415; 88305; 11601; A4216; J2704; J2003; J3010; J2405; J7120; J0690